=== PATIENT | female | born 1950 | race Two or more races ===

== ENCOUNTER → 2019-12-25 11:12 | Outpatient (BNVA) | payer MEDICARE, SELFPAY | PROVIDERS: PCP Internal Medicine; Visit Provider Hospitalist | DX: G47.33 Obstructive sleep apnea (adult) (pediatric) (principal); J44.9 Chronic obstructive pulmonary disease, unspecified; Z79.899 Other long term (current) drug therapy; Z86.19 Personal history of other infectious and parasitic diseases | CPT/HCPCS: 99202 ==

== ENCOUNTER 2019-12-26 13:55 | Outpatient (REF) | payer MEDICARE, SELFPAY ==
[2019-12-26 15:20] LABS: Vitamin B12 1260 pg/mL (200-900)
== END 2019-12-26 13:56 | disposition home or self-care (01) ==
LOC: HO.LAB 13:55
PROVIDERS: PCP Internal Medicine; Visit Provider Psychiatry & Neurology Neurology
DX: G31.84 Mild cognitive impairment of uncertain or unknown etiology (principal)
CPT/HCPCS: 82607

== ENCOUNTER 2020-01-08 13:32 | Outpatient (REF) | payer MEDICARE, SELFPAY ==
--- NOTE | 2020-01-08 13:41 | XR_ITS ---
EXAMINATION: XR CHEST CLINICAL INFORMATION: COPD, unspecified COMPARISON: Chest radiographs 03/02/2017 TECHNIQUE: 2 views of the chest were obtained. FINDINGS: The lungs are clear. There is no airspace consolidation or definite groundglass opacity. There is no hyperinflation. The costophrenic sulci are clear. The heart is within normal size. The hilar and mediastinal contours are normal. There are surgical clips again seen at bases next midline, possibly from prior thyroid surgery. No visible acute bony abnormality. XR/XR chest 2V IMPRESSION: No acute intrathoracic disease. No hyperinflation.
== END 2020-01-08 13:33 | disposition home or self-care (01) ==
LOC: HO.LAB 13:32
PROVIDERS: PCP Internal Medicine; Visit Provider Hospitalist
DX: J44.9 Chronic obstructive pulmonary disease, unspecified (principal)
CPT/HCPCS: 71046

== ENCOUNTER 2020-01-23 14:58 | Outpatient (REF) | payer MEDICARE, SELFPAY ==
--- NOTE | 2020-01-23 17:35 | PFT_ITS ---
INDICATION: COPD. To note the patient did have her long-acting inhaler use prior to this study. SPIROMETRY: The FEV1 to FVC 84% with an FEV1 of 1.73 L, which is 80% predicted, an FVC of 2.06 L which is 74% predicted. No significant response to bronchodilators noted. Maximum voluntary ventilation 104% predicted. LUNG VOLUMES: Total lung capacity 80% predicted with an expiratory reserve volume of 40% predicted. DIFFUSION CAPACITY: DLCO 59% predicted. COMPARISONS: None available. INTERPRETATION: No obstructive nor restrictive ventilatory defects identified. No significant response to bronchodilators noted and normal maximum voluntary ventilation, although these numbers can be obscured by the fact that she did use a long-acting bronchodilator. Lung volumes demonstrating a low normal total lung capacity. Therefore, occult interstitial lung conditions cannot be ruled out and decrease in the expiratory reserve volume may be due to an elevated BMI. In addition to that, the patient has a moderate diffusion impairment. Therefore, underlying interstitial lung conditions and/or pulmonary vascular conditions should be considered. The patient should also have a correction to hemoglobin and to alveolar volume. Clinical correlation warranted. MD JARON Pena/ANTONINO / [phone]
== END 2020-01-23 14:59 | disposition home or self-care (01) ==
LOC: HO.RESP 14:58
PROVIDERS: Visit Provider Hospitalist
DX: J44.9 Chronic obstructive pulmonary disease, unspecified (principal)
CPT/HCPCS: 94060; 94727; 94729

== ENCOUNTER → 2020-02-28 11:05 | Outpatient (BNVA) | payer MEDICARE, SELFPAY | PROVIDERS: PCP Internal Medicine; Visit Provider Hospitalist | DX: G47.33 Obstructive sleep apnea (adult) (pediatric) (principal); J45.909 Unspecified asthma, uncomplicated | CPT/HCPCS: Q3014 ==

== ENCOUNTER → 2020-06-30 11:20 | Outpatient (BNVA) | payer MEDICARE, SELFPAY | PROVIDERS: PCP Internal Medicine; Visit Provider Hospitalist | DX: J44.9 Chronic obstructive pulmonary disease, unspecified (principal); G47.33 Obstructive sleep apnea (adult) (pediatric); J45.40 Moderate persistent asthma, uncomplicated | CPT/HCPCS: 99212 ==

== ENCOUNTER → 2020-07-23 11:07 | Outpatient (REF) | payer MEDICARE, SELFPAY | LOC: HO.SL 11:07 | PROVIDERS: PCP Internal Medicine; Visit Provider Hospitalist | DX: G47.33 Obstructive sleep apnea (adult) (pediatric) (principal) | CPT/HCPCS: 95806 ==

== ENCOUNTER → 2020-09-07 14:34 | Outpatient (BNVA) | payer MEDICARE, SELFPAY | PROVIDERS: PCP Internal Medicine; Visit Provider Hospitalist | DX: J44.9 Chronic obstructive pulmonary disease, unspecified (principal); G47.33 Obstructive sleep apnea (adult) (pediatric) | CPT/HCPCS: 99212 ==

== ENCOUNTER → 2020-10-29 14:53 | Outpatient (BNVA) | payer MEDICARE, SELFPAY | PROVIDERS: PCP Internal Medicine; Visit Provider Hospitalist | DX: J44.9 Chronic obstructive pulmonary disease, unspecified (principal); G47.33 Obstructive sleep apnea (adult) (pediatric) | CPT/HCPCS: 99212 ==

== ENCOUNTER → 2021-01-26 13:35 | Outpatient (BNVA) | payer MEDICARE, SELFPAY | PROVIDERS: PCP Internal Medicine; Visit Provider Hospitalist | DX: J44.9 Chronic obstructive pulmonary disease, unspecified (principal); G47.33 Obstructive sleep apnea (adult) (pediatric) | CPT/HCPCS: 99212 ==

== ENCOUNTER → 2021-02-25 14:57 | Outpatient (BNVA) | payer MEDICARE, SELFPAY | PROVIDERS: PCP Nurse Practitioner Family; Visit Provider Hospitalist | DX: J44.9 Chronic obstructive pulmonary disease, unspecified (principal); G47.33 Obstructive sleep apnea (adult) (pediatric) | CPT/HCPCS: 99212 ==

== ENCOUNTER 2021-03-09 13:53 | Outpatient (REF) | payer MEDICARE, SELFPAY ==
--- NOTE | ~2021-03-09 | MM_ITS ---
EXAMINATION: BONE DENSITOMETRY CLINICAL INDICATION: Encounter for screening for osteoporosis. COMPARISON: None (current study represents initial baseline exam). TECHNIQUE: Using a [employer] DXA System (software version: 13.1) manufactured by [employer], dual-energy x-ray absorptiometry was performed of the lumbar spine and left hip. The images are of good technical quality. Summary results are attached. FINDINGS: AP SPINE L1-L4: BMD 1.206 g/cm2, Z-score 1.7, T-score 0.2, normal. LEFT FEMUR, NECK: BMD 0.867 g/cm2, Z-score 0.4, T-score -1.2, osteopenia. LEFT FEMUR, TOTAL: BMD 0.943 g/cm2, Z-score 0.9, T-score -0.5, normal. IDENTIFIED RISK FACTORS: Osteoporosis, height loss, secondary osteoporosis, history of fracture (adult), menopause. HISTORY OF FRACTURE: Lower leg. MEDICATIONS: Calcium supplements or multivitamin, vitamin D. MM/XR DEXA axial skeleton IMPRESSION: 1. DIAGNOSIS: Osteopenia based on the lowest T-score value of -1.2 in the femoral neck applying World Health Organization criteria. 2. 10-YEAR FRACTURE RISK PREDICTION, FRAX: Major osteoporotic fracture (clinical spine, forearm, hip or shoulder) 8.8%. Hip fracture 1.2%. 3. Treatment Recommendations: NOF guidelines recommend consideration for treatment in postmenopausal women and men age 50 and older presenting with the following: -A hip or vertebral (clinical or morphometric) fracture. -T-score less than or equal to -2.5 at the femoral neck or spine after appropriate evaluation to exclude secondary causes. -Low bone mass at the hip or spine and a 10-year fracture probability by FRAX of greater than or equal to 3% for hip fracture or greater than or equal to 20% for major osteoporotic fracture based on the [place] adapted WHO algorithm. 4. Other Recommendations: All treatment decisions require clinical judgment and consideration of individual patient factors, including patient preferences, comorbidities, previous drug use, risk factors not captured in the FRAX model (e.g. frailty, falls, vitamin D deficiency, increased bone turnover, interval significant decline in bone density) and possible under or overestimation of fracture risk by FRAX. Additional medical evaluation for secondary cause of low bone mineral density may be appropriate. FUTURE SCAN RECOMMENDATION: People with diagnosed cases of osteoporosis or at high risk for fracture should have regular bone mineral density tests. For patients eligible for Medicare, routine testing is allowed once every 2 years. The testing frequency can be increased to one year for patients who have rapidly progressing disease, those who are receiving or discontinuing medical therapy to restore bone mass, or have additional risk factors.
== END 2021-03-09 13:54 | disposition home or self-care (01) ==
LOC: HO.MAMMO 13:53
PROVIDERS: PCP Nurse Practitioner Family; Visit Provider Nurse Practitioner Family
DX: Z13.820 Encounter for screening for osteoporosis (principal); Z78.0 Asymptomatic menopausal state
CPT/HCPCS: 77080

== ENCOUNTER 2021-03-12 08:21 | Outpatient (REF) | payer MEDICARE, SELFPAY ==
[2021-03-12 08:46] LABS: MANUAL DIFF FLAG NO
[2021-03-12 08:55] LABS: Basophils Percent Auto 0.5 % (0-2); Eosinophils Absolute Auto 0.2 X10*3/uL (0.0-0.4); Eosinophils Percent Auto 2.3 % (0-4); Hematocrit 38.9 % (37.0-47.0); Hemoglobin 12.4 g/dl (12.0-16.0); Imm Gran Abs Auto 0.03 X10*3/uL (0.00-0.03); Imm Gran Pct Auto 0.4 % (0.0-0.4); Lymphocytes Absolute Auto 1.3 X10*3/uL (1.2-4.9); Lymphocytes Percent Auto 16.4 % (20-40); Mean Corpuscular HGB Conc 31.9 g/dl (31.0-35.0); Mean Corpuscular Hemoglobin 28.2 pg (27.0-33.0); Mean Corpuscular Volume 88.4 fL (80.0-98.0); Mean Platelet Volume 11.5 fL (9.4-12.3); Monocytes Absolute Auto 0.6 X10*3/uL (0.1-1.2); Monocytes Percent Auto 7.1 % (2-11); Neutrophils Percent Auto 73.3 % (45-73); Platelet Count 262 X10*3/uL (160-400); Red Cell Distribution Width 14.9 % (11.0-16.0); White Blood Count 8.1 X10*3/uL (4.8-10.8)
[2021-03-12 09:00] LABS: Prothrombin Time 11.4 SEC (9.9-13.0)
[2021-03-12 09:09] LABS: Alanine Aminotransferase 15 U/L (0-31); Alkaline Phosphatase 74 U/L (39-117); Anion Gap 10 (12-20); Aspartate Amino Transferase 20 U/L (5-31); Bilirubin Direct 0.2 mg/dL (0.0-0.5); Bilirubin Total 0.3 mg/dL (0.0-1.0); Blood Urea Nitrogen 16 mg/dL (9-16); Calcium 9.5 mg/dL (8.4-10.2); Carbon Dioxide 28 mmol/L (22-29); Chloride 109 mmol/L (96-108); Estimated Glomerular Filt Rate > 60; Glucose Fasting 95 mg/dL (60-99); Potassium 4.1 mmol/L (3.3-5.1); Sodium 143 mmol/L (135-145); Total Protein 7.2 g/dL (6.5-8.0)
[2021-03-12 09:16] LABS: Estimated Average Glucose 117 mg/dL; Hemoglobin A1c % 5.7 %
== END 2021-03-12 08:22 | disposition home or self-care (01) ==
LOC: HO.LAB 08:21
PROVIDERS: PCP Nurse Practitioner Family; Visit Provider Nurse Practitioner Family
DX: Z01.818 Encounter for other preprocedural examination (principal); I10 Essential (primary) hypertension; E11.9 Type 2 diabetes mellitus without complications; E78.00 Pure hypercholesterolemia, unspecified
CPT/HCPCS: 36415; 80053; 80076; 82248; 83036; 84443; 85025; 85610; 85730

== ENCOUNTER → 2021-03-16 15:12 | Outpatient (REF) | payer MEDICARE, SELFPAY ==
--- NOTE | 2021-03-16 15:21 | ECG_ITS ---
Test Reason : preproc exam Blood Pressure : / mmHG Vent. Rate : 058 BPM Atrial Rate : 058 BPM P-R Int : 114 ms QRS Dur : 102 ms QT Int : 432 ms P-R-T Axes : 053 -12 049 degrees QTc Int : 424 ms Sinus bradycardia Incomplete right bundle branch block Moderate voltage criteria for LVH, may be normal variant ( R in aVL , Celso product ) Nonspecific T wave abnormality Abnormal ECG When compared with ECG of 02-MAR-2017 09:02, Premature ventricular complexes are no longer Present Premature supraventricular complexes are no longer Present Referred By: Dioni Gamez Electronically Signed By:KENNEDY ZEPEDA MD
== END ==
LOC: HO.CARD 15:12
PROVIDERS: PCP Nurse Practitioner Family; Visit Provider Nurse Practitioner Family
DX: Z01.818 Encounter for other preprocedural examination (principal)
CPT/HCPCS: 93005

== ENCOUNTER 2021-03-24 12:17 | Outpatient (REF) | payer MEDICARE, SELFPAY ==
--- NOTE | ~2021-03-24 | MM_ITS ---
EXAMINATION: MM SCREENING DIGITAL BREAST TOMOSYNTHESIS, BILATERAL CLINICAL INFORMATION: Screening. Asymptomatic. The lifetime risk of breast cancer based on the Tyrer-Cuzick Model is 2.6%. COMPARISON: Mammography: February 26, 2020 and studies dating back to November 03, 2016 TECHNIQUE: Digital breast tomosynthesis is performed in both the craniocaudal and mediolateral oblique views along with computer-aided detection (CAD). Synthesized 2D images are generated from the tomosynthesis. FINDINGS: There are scattered areas of fibroglandular density (ACR BI-RADS breast composition Category b). There are no significant masses, abnormal calcifications, or other abnormalities. MM/MM tomosynthesis screening BI IMPRESSION: There are no significant changes from prior study. ASSESSMENT: BI-RADS 1: Negative RECOMMENDATION: Routine annual mammography screening. This patient's information was entered into a reminder system with a target due date for their next mammogram.
== END 2021-03-24 12:18 | disposition home or self-care (01) ==
LOC: HO.MAMMO 12:17
PROVIDERS: PCP Nurse Practitioner Family; Visit Provider Nurse Practitioner Family
DX: Z12.31 Encounter for screening mammogram for malignant neoplasm of breast (principal)
CPT/HCPCS: 77063; 77067

== ENCOUNTER → 2021-03-25 13:05 | Outpatient (BNVA) | payer MEDICARE, SELFPAY | PROVIDERS: PCP Nurse Practitioner Family; Visit Provider Hospitalist | DX: G47.33 Obstructive sleep apnea (adult) (pediatric) (principal); J44.9 Chronic obstructive pulmonary disease, unspecified | CPT/HCPCS: 99212 ==

== ENCOUNTER 2021-06-24 10:05 | Outpatient (REF) | payer OTHER, SELFPAY ==
[2021-06-24 10:20] LABS: MANUAL DIFF FLAG NO
[2021-06-24 10:53] LABS: Basophils Absolute Auto 0.1 X10*3/uL (0.0-0.2); Basophils Percent Auto 0.7 % (0-2); Eosinophils Absolute Auto 0.2 X10*3/uL (0.0-0.4); Eosinophils Percent Auto 2.4 % (0-4); Hematocrit 38.1 % (37.0-47.0); Imm Gran Abs Auto 0.08 X10*3/uL (0.00-0.03); Imm Gran Pct Auto 0.8 % (0.0-0.4); Lymphocytes Absolute Auto 1.8 X10*3/uL (1.2-4.9); Lymphocytes Percent Auto 17.6 % (20-40); Mean Corpuscular HGB Conc 31.5 g/dl (31.0-35.0); Mean Corpuscular Hemoglobin 27.4 pg (27.0-33.0); Mean Platelet Volume 11.7 fL (9.4-12.3); Monocytes Absolute Auto 0.8 X10*3/uL (0.1-1.2); Monocytes Percent Auto 7.6 % (2-11); Neutrophils Absolute Auto 7.2 x10*3/uL (2.0-8.3); Neutrophils Percent Auto 70.9 % (45-73); Platelet Count 296 X10*3/uL (160-400); Red Blood Count 4.38 X10*6/uL (4.20-5.50); Red Cell Distribution Width 14.9 % (11.0-16.0); White Blood Count 10.2 X10*3/uL (4.8-10.8)
[2021-06-24 11:21] LABS: Alanine Aminotransferase 15 U/L (0-31); Albumin Level 4.1 g/dL (3.5-5.0); Alkaline Phosphatase 104 U/L (39-117); Anion Gap 14 (12-20); Aspartate Amino Transferase 19 U/L (5-31); Bilirubin Total 0.4 mg/dL (0.0-1.0); Blood Urea Nitrogen 21 mg/dL (9-16); Calcium 9.7 mg/dL (8.4-10.2); Carbon Dioxide 24 mmol/L (22-29); Chloride 107 mmol/L (96-108); Cholesterol 182 mg/dL; Estimated Glomerular Filt Rate > 60; Glucose Fasting 98 mg/dL (60-99); HDL Cholesterol 45 mg/dL; LDL Cholesterol Calculated 116 mg/dl; Potassium 4.3 mmol/L (3.3-5.1); Sodium 141 mmol/L (135-145); Total Protein 7.3 g/dL (6.5-8.0); Triglycerides 109 mg/dL
[2021-06-24 11:46] LABS: Creatinine Urine 183.89 mg/dL; Microalbum/Creatinine Ratio Ur 29.3 ug/mg cr
[2021-06-24 11:46] LABS: TSH reflex Free T4 2.67 uIU/mL (0.32-4.0)
== END 2021-06-24 10:06 | disposition home or self-care (01) ==
LOC: HO.LAB 10:05
PROVIDERS: PCP Nurse Practitioner Family; Visit Provider Nurse Practitioner Family
DX: E11.9 Type 2 diabetes mellitus without complications (principal); E78.00 Pure hypercholesterolemia, unspecified; E78.5 Hyperlipidemia, unspecified; I10 Essential (primary) hypertension; E03.9 Hypothyroidism, unspecified
CPT/HCPCS: 36415; 80053; 80061; 82043; 84443; 85025

== ENCOUNTER → 2021-07-01 15:00 | Outpatient (BNVA) | payer OTHER, SELFPAY | PROVIDERS: PCP Nurse Practitioner Family; Visit Provider Hospitalist | DX: J44.9 Chronic obstructive pulmonary disease, unspecified (principal); G47.33 Obstructive sleep apnea (adult) (pediatric) | CPT/HCPCS: 99212 ==

== ENCOUNTER → 2021-07-28 13:52 | Outpatient (BNVA) | payer OTHER, SELFPAY | PROVIDERS: PCP Nurse Practitioner Family; Referring Provider Nurse Practitioner Family; Visit Provider Internal Medicine | DX: R07.2 Precordial pain (principal); E11.9 Type 2 diabetes mellitus without complications; I10 Essential (primary) hypertension; E78.5 Hyperlipidemia, unspecified; G47.33 Obstructive sleep apnea (adult) (pediatric) | CPT/HCPCS: 93005; 99202 ==

== ENCOUNTER → 2021-09-08 10:24 | Outpatient (REF) | payer OTHER, SELFPAY ==
--- NOTE | 2021-09-08 10:29 | CA_ITS ---
Transthoracic Echocardiogram Patient (Last, First, Middle): Joanna Osman, Gender: Female Date of : 1950 Age: 71 Procedure Date: 09/08/2021 Procedure Type: Transthoracic Echocardiogram Location: OP Height: 160.02 cm Weight: 72.58 kg BSA: 1.76 m2 Heart Rate: bpm BP: 140 / 85 mmHg Insulation Extruder Operator: TO/VH Referring MD: Vamsi Moody MD Dean Of Women: Thomas Shipman MD Symptoms: R07.2 - Precordial pain Study Quality: Fair ECG Rhythm: Sinus Conclusions: - 1. Normal LV systolic function with pseudonormal filling pattern 2. Moderately dilated left atrium 3. Mild aortic stenosis 4. Normal RV systolic pressure 5. No pericardial effusion Findings Left Ventricle Normal left ventricular size, thickness, and systolic function. The visually estimated ejection fraction is between 55-60%. Spectral Doppler is indicative of a pseudonormal filling pattern. E/E prime ratio is between 8 and 15 consistent with indeterminate filling pressures. Right Ventricle Normal right ventricular cavity size and systolic function. Atria The left atrium is moderately dilated. There is no evidence of interatrial shunt. The right atrium is mildly dilated. Aortic Valve There is mild calcification of the aortic valve. There is mild aortic valve stenosis. The peak aortic gradient is 13 mmHg.The mean gradient is 6 mmHg. The aortic valve area is 1.63 cm2. Mitral Valve There is mild anterior and posterior mitral leaflet thickening. There is trace mitral valve regurgitation. There is no mitral valve stenosis. Pulmonic Valve The pulmonic valve was not well visualized. Tricuspid Valve Normal tricuspid valve structure. There is mild tricuspid valve regurgitation. The right ventricular systolic pressure is normal. The right ventricular systolic pressure is 25 mmHg. Normal right atrial pressure. There is no evidence of pulmonary hypertension. Great Vessels All visible segments of the aorta are normal in size. The pulmonary artery was not well visualized. Moderate plaque is seen in the sino tubular ridge. Venous The inferior vena cava is normal in size and collapses greater than 50% with inspiration. Pericardium/Pleural There is no evidence of pericardial effusion. Prior Study Comparison No prior study available for comparison. Measurements 2D Linear Measurements IVSd: 0.94 0.6-0.9/0.6-1.0 cm LVIDd: 5.40 3.9-5.3/4.2-5.9 cm LVIDd Index: 3.07 2.4-3.2/2.2-3.1 cm/m2 LVIDs: 4.14 2.0-3.6 cm LVPWd: 0.95 0.7-1.1 cm LA Diam: 3.90 2.7-3.8/3.0-4.0 cm LAIDs Index: 2.22 1.5-2.3 cm/m2 LV Mass: 238.99 67-162/88-224 g LV Mass Index: 135.79 43-95/49-115 g/m2 LVOT Diam: 2.00 3.0+(-)1.3 cm 2D Systolic Function EF 4C: 53.90 >55% EF 2C: 50.50 >55% Mitral Valve MV Pk E: 0.86 MV PK A: 0.76 MV Decel Time: 228.00 E/A: 1.10 E'Lateral: 10.20 E'Medial: 4.90 E/E' Med: 17.50 E/E' Lat: 8.40 PHT: 67.00 MVA PHT: 3.28 Decel [place]: 3.77 Aortic Valve AoV Pk Tim: 1.79 AoV Mn Tim: 1.16 AoV VTI: 0.43 AoV Pk Grad: 13.00 Aov Mn Grad: 6.00 ROEL Cont.VTI: 1.63 LVOT LVOT Pk Tim: 0.81 LVOT Mn Tim: 0.57 LVOT VTI: 0.22 LVOT Pk Grad: 3.00 LVOT Mn Grad: 2.00 LVOT Diam: 2.00 LVOT Area: 3.14 Diastolic Function MV Pk E: 0.86 MV Pk A: 0.76 E/A: 1.10 E'Medial: 4.90 E/E' Med: 17.50 E' Laterial: 10.20 E/E' Lat: 8.40 Right Ventricle TAPSE (mm): 18.70 TVS' Tim: 7.94 Tricuspid Valve TR Pk Tim: 2.34 TR Pk Grad: 22.00 RA Press: 3.00 RVSP: 25.00 Great Vessels Aorta Sinus of Valsalva: 2.69 2.0-3.5 cm Ao Asc: 3.00 2.1-3.4 cm Updated in Other Vendor System with Status of Final Thomas Shipman MD electronically signed on 09/09/2021 11:23:18 AM with status of Final
== END ==
LOC: HO.CARD 10:24
PROVIDERS: PCP Nurse Practitioner Family; Visit Provider Internal Medicine
DX: R07.2 Precordial pain (principal)
CPT/HCPCS: 93306

== ENCOUNTER → 2021-09-16 09:56 | Outpatient (REF) | payer OTHER, SELFPAY ==
--- NOTE | ~2021-09-16 | NM_ITS ---
Lexiscan Myocardial perfusion study Indication: Chest pain, assess for coronary disease and ischemia Technique: The patient was brought in for a Lexiscan perfusion study on 09/16/2021 and was injected 0.4 mg of Lexiscan intravenously. Within a minute of this injection 25 mCi of sestamibi was given intravenously. Images were obtained using the SPECT gamma camera interlaced with the gating device. Images were obtained in supine position. Resting perfusion study was performed on 09/21/2021. Patient was administered 25 mCi of sestamibi intravenously at rest. Images were then obtained in supine position. Total DLP 168mGy-cm. Images were processed with the software and compared side to side in short axis, horizontal long axis and vertical long axis views. Findings: Raw acquisition reviewed. Arms by the patient's side. The stress perfusion study showed diminished tracer uptake along the lateral wall. There is improvement with CT attenuation correction and hence suggestive of soft tissue attenuation artifact. The gated study shows normal LV systolic function with calculated LVEF of 65%. LV cavity is normal in size. The gated study shows normal wall thickening and contraction of segments. Resting study shows diminished tracer uptake along the inferolateral wall and parts of inferior wall. There is improvement with CT attenuation correction suggestive of diaphragmatic attenuation artifact. Gating at rest reveals normal wall motion with ejection fraction at 53%. The findings are consistent with no definite reversible or fixed perfusion defects. NM/NM cardiolite stress test Impression: 1. Myocardial perfusion imaging study shows likely normal myocardial perfusion. No definitive evidence of any ischemia or infarction. 2. Gated LVEF is 65% during stress and 53% during rest. 3. Transient ischemic dilatation not present. EKG component of the test reported separately.
--- NOTE | 2021-09-16 09:58 | CA_ITS ---
Acquisition Time: 2021-09-16 10:16:59 Total Exercise Time: 00:04:45 Test Indications: Chest Pain Medications: SEE H Protocol: LESTER Max HR: 111 BPM 75% of Pred: 147 BPM Max BP: 160/070 mmHG Max Work Load: 6.6 METS Exercise stress test with exercise 4 min 45 sec of Lester protocol, achieving 72% MPHR, with report of leg fatigue and need to slow exercise, without anginal symptom, with isolated PACs, with normotensive response to exercise, with nondiagnostic EKG for ischemia due to suboptimal heart rate and baseline ST/ T wave abn. Treadmill placed in recovery and slowed to 1 MPH. Testing changed to a pharmacological stress test with Lexiscan injection, with sob and tightness in her chest post injection, with isolated PACs, with normotensive response to injection, with nondiagnostic EKG for ischemia. In recovery her symptoms resolved. Nuclear images pending. Test reviewed with Dr Moody Referred By: Vamsi Moody Overread By: CHAI VALENTIN
== END ==
LOC: HO.CARD 09:56
PROVIDERS: PCP Nurse Practitioner Family; Visit Provider Internal Medicine
DX: R07.2 Precordial pain (principal)
CPT/HCPCS: 78452; 93017; A9500; J0280; J2785

== ENCOUNTER → 2021-09-30 13:24 | Outpatient (BNVA) | payer OTHER, SELFPAY | PROVIDERS: PCP Nurse Practitioner Family; Visit Provider Hospitalist | DX: J44.9 Chronic obstructive pulmonary disease, unspecified (principal); G47.33 Obstructive sleep apnea (adult) (pediatric) | CPT/HCPCS: 99212 ==

== ENCOUNTER → 2021-10-12 13:30 | Outpatient (BNVA) | payer OTHER, SELFPAY | PROVIDERS: PCP Nurse Practitioner Family; Referring Provider Nurse Practitioner Family; Visit Provider Nurse Practitioner Family | DX: I35.0 Nonrheumatic aortic (valve) stenosis (principal); I10 Essential (primary) hypertension; R07.2 Precordial pain; M25.473 Effusion, unspecified ankle; E11.9 Type 2 diabetes mellitus without complications; E78.5 Hyperlipidemia, unspecified; Z87.891 Personal history of nicotine dependence; Z79.899 Other long term (current) drug therapy | CPT/HCPCS: 99212 ==

== ENCOUNTER → 2021-11-11 14:53 | Outpatient (BNVA) | payer OTHER, SELFPAY | PROVIDERS: PCP Nurse Practitioner Family; Visit Provider Hospitalist | DX: G47.33 Obstructive sleep apnea (adult) (pediatric) (principal); J44.9 Chronic obstructive pulmonary disease, unspecified | CPT/HCPCS: 99212 ==

== ENCOUNTER 2022-01-04 09:59 | Outpatient (REF) | payer OTHER, SELFPAY ==
[2022-01-04 10:47] LABS: Hematocrit 39.7 % (37.0-47.0); Hemoglobin 12.3 g/dl (12.0-16.0); Mean Corpuscular Hemoglobin 27.2 pg (27.0-33.0); Mean Corpuscular Volume 87.8 fL (80.0-98.0); Platelet Count 278 X10*3/uL (160-400); Red Blood Count 4.52 X10*6/uL (4.20-5.50); Red Cell Distribution Width 14.7 % (11.0-16.0); White Blood Count 9.4 X10*3/uL (4.8-10.8)
[2022-01-04 11:47] LABS: Folate 17.9 ng/mL (> or = 4.0); Vitamin B12 1411 pg/mL (200-900)
[2022-01-04 11:50] LABS: Alanine Aminotransferase 19 U/L (0-31); Albumin Level 4.2 g/dL (3.5-5.0); Alkaline Phosphatase 103 U/L (39-117); Anion Gap 15 (12-20); Aspartate Amino Transferase 23 U/L (5-31); Bilirubin Total 0.4 mg/dL (0.0-1.0); Blood Urea Nitrogen 16 mg/dL (9-16); Calcium 9.5 mg/dL (8.4-10.2); Carbon Dioxide 27 mmol/L (22-29); Chloride 106 mmol/L (96-108); Cholesterol 183 mg/dL; Estimated Glomerular Filt Rate > 60; Glucose Random 90 mg/dL (60-115); HDL Cholesterol 44 mg/dL; LDL Cholesterol Calculated 114 mg/dl; Potassium 4.6 mmol/L (3.3-5.1); Sodium 143 mmol/L (135-145); TSH reflex Free T4 14.53 uIU/mL (0.32-4.0); Total Protein 7.4 g/dL (6.5-8.0); Triglycerides 128 mg/dL; Vitamin D 25-OH Total 38.5 ng/mL (>30)
[2022-01-04 12:26] LABS: Free T4 (Free Thyroxine) 0.93 ng/dL (0.71-1.85)
== END 2022-01-04 10:00 | disposition home or self-care (01) ==
LOC: HO.LAB 09:59
PROVIDERS: PCP Nurse Practitioner Family; Visit Provider Nurse Practitioner Family
DX: E11.9 Type 2 diabetes mellitus without complications (principal); I10 Essential (primary) hypertension; E03.9 Hypothyroidism, unspecified; E78.5 Hyperlipidemia, unspecified
CPT/HCPCS: 36415; 80053; 80061; 82306; 82607; 82746; 84439; 84443; 85027

== ENCOUNTER 2022-02-17 15:46 | Outpatient (REF) | payer OTHER, SELFPAY ==
[2022-02-17 17:50] LABS: Appearance Urine Clear; Color Urine Yellow; Glucose Urine UA Negative (Negative); Leukocyte Esterase Urine Small (1+) (Negative); Nitrite Urine Negative (Negative); UMIC TRIGGER UACC YES; Urine Blood Negative (Negative); Urine Ketones Negative (Negative); Urine Protein Negative (Neg-Trace)
[2022-02-17 17:56] LABS: Bacteria Urine None Seen (None Seen); Hyaline Casts Urine 0-2 /LPF (0-2); RBC Urine 0-2 /HPF (0-2); Squamous Epithelial Cell Urine 0-2 /HPF (0-2); UACC Culture Trigger YES
[2022-02-17 18:37] LABS: TSH reflex Free T4 23.56 uIU/mL (0.32-4.0)
[2022-02-17 20:24] LABS: Free T4 (Free Thyroxine) 1.03 ng/dL (0.71-1.85)
== END 2022-02-17 15:47 | disposition home or self-care (01) ==
LOC: HO.LAB 15:46
PROVIDERS: Visit Provider Nurse Practitioner Family
DX: E03.9 Hypothyroidism, unspecified (principal)
CPT/HCPCS: 36415; 81001; 84439; 84443; 87086

== ENCOUNTER 2022-03-07 14:37 | Outpatient (REF) | payer OTHER, SELFPAY ==
--- NOTE | ~2022-03-07 | XR_ITS ---
EXAMINATION: XR CHEST CLINICAL INFORMATION: Bronchitis COMPARISON: 01/08/2020 TECHNIQUE: 2 views of the chest were obtained. FINDINGS: Lungs are clear. No focal consolidation or mass. Normal pulmonary vascularity. No pleural effusion or pneumothorax. Calcified aortic arch. Normal heart size. Regional skeleton intact. Multilevel degenerative changes of the thoracic spine. XR/XR chest 2V IMPRESSION: No acute pulmonary disease.
[2022-03-07 15:35] LABS: MANUAL DIFF FLAG NO
[2022-03-07 16:32] LABS: Basophils Absolute Auto 0.1 X10*3/uL (0.0-0.2); Basophils Percent Auto 0.8 % (0-2); Eosinophils Absolute Auto 0.2 X10*3/uL (0.0-0.4); Eosinophils Percent Auto 2.3 % (0-4); Hemoglobin 12.3 g/dl (12.0-16.0); Imm Gran Abs Auto 0.03 X10*3/uL (0.00-0.03); Imm Gran Pct Auto 0.3 % (0.0-0.4); Lymphocytes Absolute Auto 1.9 X10*3/uL (1.2-4.9); Lymphocytes Percent Auto 20.4 % (20-40); Mean Corpuscular HGB Conc 31.5 g/dl (31.0-35.0); Mean Corpuscular Hemoglobin 27.3 pg (27.0-33.0); Mean Corpuscular Volume 86.7 fL (80.0-98.0); Monocytes Absolute Auto 0.6 X10*3/uL (0.1-1.2); Monocytes Percent Auto 6.3 % (2-11); Neutrophils Absolute Auto 6.4 x10*3/uL (2.0-8.3); Neutrophils Percent Auto 69.9 % (45-73); Platelet Count 264 X10*3/uL (160-400); Red Cell Distribution Width 15.6 % (11.0-16.0); White Blood Count 9.2 X10*3/uL (4.8-10.8)
[2022-03-07 17:10] LABS: Erythrocyte Sedimentation Rate 45 MM/HR (0-20)
[2022-03-10 18:04] LABS: IgA 539 mg/dL (70-320); IgG 1345 mg/dL (600-1540); IgM 38 mg/dL (50-300)
== END 2022-03-07 14:38 | disposition home or self-care (01) ==
LOC: HO.LAB 14:37
PROVIDERS: PCP Nurse Practitioner Family; Visit Provider Hospitalist
DX: J40 Bronchitis, not specified as acute or chronic (principal); J45.909 Unspecified asthma, uncomplicated; J30.89 Other allergic rhinitis; G47.33 Obstructive sleep apnea (adult) (pediatric)
CPT/HCPCS: 36415; 71046; 82784; 82785; 85025; 85652; 86003; 99212

== ENCOUNTER → 2022-03-09 13:08 | Outpatient (BNVA) | payer OTHER, SELFPAY | PROVIDERS: PCP Nurse Practitioner Family; Visit Provider Nurse Practitioner Family | DX: N39.46 Mixed incontinence (principal) | CPT/HCPCS: 51798; 99202 ==

== ENCOUNTER 2022-03-30 11:31 | Outpatient (REF) | payer OTHER, SELFPAY ==
--- NOTE | ~2022-03-30 | MM_ITS ---
EXAMINATION: MM SCREENING DIGITAL BREAST TOMOSYNTHESIS, BILATERAL CLINICAL INFORMATION: Screening. Asymptomatic. The lifetime risk of breast cancer based on the Tyrer-Cuzick Model is 2.3%. COMPARISON: Mammography: March 24, 2021 and studies dating back to November 03, 2016 TECHNIQUE: Digital breast tomosynthesis is performed in both the craniocaudal and mediolateral oblique views along with computer-aided detection (CAD). Synthesized 2D images are generated from the tomosynthesis. FINDINGS: There are scattered areas of fibroglandular density (ACR BI-RADS breast composition Category b). There are no significant masses, abnormal calcifications, or other abnormalities. MM/MM tomosynthesis screening BI IMPRESSION: No significant changes from prior exam. ASSESSMENT: BI-RADS 1: Negative RECOMMENDATION: Routine annual mammography screening. This patient's information was entered into a reminder system with a target due date for their next mammogram.
[2022-03-30 14:14] LABS: Free T4 (Free Thyroxine) 1.19 ng/dL (0.71-1.85); Thyroid Stimulating Hormone 2.46 uIU/mL (0.32-4.0)
[2022-03-31 13:47] LABS: Thyroid Peroxidase Antibodies 1 IU/mL (<9)
== END 2022-03-30 11:32 | disposition home or self-care (01) ==
LOC: HO.MAMMO 11:31
PROVIDERS: Absent Provider Nurse Practitioner Family; PCP Nurse Practitioner Family; Visit Provider Nurse Practitioner Family
DX: E03.9 Hypothyroidism, unspecified (principal); Z12.31 Encounter for screening mammogram for malignant neoplasm of breast
CPT/HCPCS: 36415; 77063; 77067; 84439; 84443; 86376

== ENCOUNTER 2022-04-01 13:04 | Outpatient (REF) | payer OTHER, SELFPAY ==
--- NOTE | ~2022-04-01 | US_ITS ---
EXAMINATION: US RETROPERITONEAL LIMITED (RENAL ONLY) CLINICAL INFORMATION: Unspecified urinary incontinence. COMPARISON: None TECHNIQUE: Real-time imaging of the kidneys. FINDINGS: RIGHT KIDNEY: 10.0 x 3.8 x 4.7 cm (SAG x AP x TRV). The kidney is normal in size, contour, and echogenicity. Renal cortical thickness is normal. No calculi or focal parenchymal lesions. No hydronephrosis. LEFT KIDNEY: 10.1 x 5.4 x 5.5 cm (SAG x AP x TRV). The kidney is normal in size, contour, and echogenicity. Renal cortical thickness is normal. No calculi or focal parenchymal lesions. No hydronephrosis. US/US renal BI IMPRESSION: Unremarkable renal ultrasound.
== END 2022-04-01 13:05 | disposition home or self-care (01) ==
LOC: HO.US 13:04
PROVIDERS: Visit Provider Nurse Practitioner Family
DX: N39.46 Mixed incontinence (principal)
CPT/HCPCS: 76775

== ENCOUNTER 2022-04-04 12:25 | Outpatient (REF) | payer OTHER, SELFPAY ==
--- NOTE | ~2022-04-04 | US_ITS ---
EXAMINATION: US PELVIS LIMITED (BLADDER) CLINICAL INFORMATION: Urinary incontinence. COMPARISON: Ultrasound renal 04/01/2022. TECHNIQUE: Real-time imaging of the bladder. FINDINGS: BLADDER: Well distended and normal. Bilateral ureteral jets are demonstrated. Prevoid bladder volume is 227 mL. Postvoid bladder volume is 18 mL. US/US bladder IMPRESSION: Unremarkable examination.
== END 2022-04-04 12:26 | disposition home or self-care (01) ==
LOC: HO.US 12:25
PROVIDERS: Visit Provider Nurse Practitioner Family
DX: R39.12 Poor urinary stream (principal); R32 Unspecified urinary incontinence
CPT/HCPCS: 76857

== ENCOUNTER → 2022-04-06 08:31 | Outpatient (BNVA) | payer OTHER, SELFPAY | PROVIDERS: PCP Nurse Practitioner Family; Visit Provider Nurse Practitioner Family | DX: F09 Unspecified mental disorder due to known physiological condition (principal); R32 Unspecified urinary incontinence; G47.33 Obstructive sleep apnea (adult) (pediatric); Z86.16 Personal history of COVID-19 | CPT/HCPCS: 99202 ==

== ENCOUNTER 2022-04-29 09:58 | Outpatient (REF) | payer OTHER, SELFPAY ==
--- NOTE | ~2022-04-29 | US_ITS ---
EXAMINATION: US ABDOMEN LIMITED CLINICAL INFORMATION: Right upper quadrant pain. COMPARISON: Renal ultrasound 04/01/2022. TECHNIQUE: Real-time imaging of the right upper quadrant abdominal viscera. FINDINGS: PANCREAS: Normal. LIVER: The liver is normal in size. The liver contour is normal. There is mildly increased liver parenchymal echogenicity. No focal hepatic lesion. There is no intrahepatic biliary duct dilatation seen. GALLBLADDER: Normal. The gallbladder is physiologically distended without evidence of stones, sludge, polyps, wall thickening or pericholecystic fluid. COMMON BILE DUCT: Normal in caliber measuring 0.5 cm in diameter. RIGHT KIDNEY: Normal. No hydronephrosis. No renal calculi or focal parenchymal lesions. The kidney measures 10.1 cm in maximum dimension. FREE FLUID: None. US/US abdomen limited IMPRESSION: 1. There is mild generalized increase in hepatic echotexture, consistent with fatty infiltration or hepatocellular disease. Please correlate clinically. No focal hepatic mass or intrahepatic biliary dilatation is seen. 2. Otherwise, unremarkable examination.
== END 2022-04-29 09:59 | disposition home or self-care (01) ==
LOC: HO.US 09:58
PROVIDERS: PCP Nurse Practitioner Family; Visit Provider Nurse Practitioner Family
DX: R10.11 Right upper quadrant pain (principal); N39.46 Mixed incontinence
CPT/HCPCS: 76705; 99212

== ENCOUNTER → 2022-06-13 14:42 | Outpatient (BNVA) | payer OTHER, SELFPAY | PROVIDERS: PCP Nurse Practitioner Family; Visit Provider Hospitalist | DX: J44.9 Chronic obstructive pulmonary disease, unspecified (principal); J30.9 Allergic rhinitis, unspecified; G47.33 Obstructive sleep apnea (adult) (pediatric) | CPT/HCPCS: 99212 ==

== ENCOUNTER 2022-07-05 12:06 | Outpatient (REF) | payer OTHER, SELFPAY ==
[2022-07-05 12:55] LABS: Estimated Average Glucose 123 mg/dL; Hemoglobin A1c % 5.9 %
[2022-07-05 12:56] LABS: Alanine Aminotransferase 15 U/L (0-31); Albumin Level 4.1 g/dL (3.5-5.0); Alkaline Phosphatase 98 U/L (39-117); Anion Gap 10 (12-20); Aspartate Amino Transferase 18 U/L (5-31); Bilirubin Total 0.6 mg/dL (0.0-1.0); Blood Urea Nitrogen 18 mg/dL (9-16); Calcium 9.3 mg/dL (8.4-10.2); Carbon Dioxide 28 mmol/L (22-29); Chloride 108 mmol/L (96-108); Cholesterol 191 mg/dL; Estimated Glomerular Filt Rate > 60; Glucose Random 96 mg/dL (60-115); HDL Cholesterol 48 mg/dL; LDL Cholesterol Calculated 124 mg/dl; Potassium 4.2 mmol/L (3.3-5.1); Sodium 142 mmol/L (135-145); Triglycerides 99 mg/dL
[2022-07-05 13:52] LABS: Vitamin D 25-OH Total 38.4 ng/mL (>30)
[2022-07-05 17:14] LABS: Creatinine Urine 137.62 mg/dL; Microalbum/Creatinine Ratio Ur 29.7 ug/mg cr
[2022-07-06 04:51] LABS: Syphilis Screen Nonreactive (Nonreactive)
[2022-07-06 07:28] LABS: HIV AB/AG Nonreactive (Nonreactive); HIV Num 1 0.07 S/CO (0.00-0.99)
[2022-07-07 19:08] LABS: Homocysteine 8.1 umol/L (<10.4)
[2022-07-11 00:39] LABS: Methylmalonic Acid 103 nmol/L (87-318)
[2022-07-17 11:19] LABS: Anti Nuclear Antibody Screen NEGATIVE (NEGATIVE)
== END 2022-07-05 12:07 | disposition home or self-care (01) ==
LOC: HO.LAB 12:06
PROVIDERS: Absent Provider Nurse Practitioner Family; PCP Nurse Practitioner Family; Visit Provider Nurse Practitioner Family
DX: Z11.4 Encounter for screening for human immunodeficiency virus [HIV] (principal); E11.9 Type 2 diabetes mellitus without complications; I10 Essential (primary) hypertension; E78.5 Hyperlipidemia, unspecified; F09 Unspecified mental disorder due to known physiological condition; R53.83 Other fatigue; R68.89 Other general symptoms and signs; M85.80 Other specified disorders of bone density and structure, unspecified site
CPT/HCPCS: 36415; 80053; 80061; 82043; 82306; 83036; 83090; 83921; 86038; 86780; 87389

== ENCOUNTER → 2022-07-06 12:52 | Outpatient (BNVA) | payer OTHER, SELFPAY | PROVIDERS: PCP Nurse Practitioner Family; Visit Provider Nurse Practitioner Family | DX: G47.33 Obstructive sleep apnea (adult) (pediatric) (principal); F09 Unspecified mental disorder due to known physiological condition; R68.89 Other general symptoms and signs | CPT/HCPCS: 99212 ==

== ENCOUNTER 2022-07-28 11:00 | Outpatient (RCR) | payer OTHER, SELFPAY ==
--- NOTE | 2022-05-25 10:49 | MHC.PT.EP ---
[facility] [place] Office [place] Office [place] Office [address] Aide Grajeda [address] [phone] F: [phone] F: [phone] F: [phone] F: [phone] Physical Therapy Plan of Care Date of Evaluation: Date of Surgery: Diagnosis: urinary, mixed incontinence Assessment: 72 y/o female referred to pelvic floor PT with mixed UI. She presents with MANN during coughing, sneesing, laughing, walking and UUI associated with keys in door, running water, pulling pants down to use the toilet, riding in the elevator to her apartment. She uses maxi pads for protection and changes them 2x/day. SHe also reports hx of constipation with hard stools and inconsistent bowel schedule. Pt consented to pelvic floor assessment and we will assess this next visit. She presents with decreased hip AROM and decreased hip strength as well as poor abdominal activation and coordination. REcommend PT 1x/week for 8 weeks to address impairments, implement HEP, and optimize functional mobility. Educated pt on pelvic floor anatomy and function, constipation massage, urgency deferment techniques. Frequency and Duration: The patient will be seen 1x/week for 8 weeks Short Term Goals: 1. Pt to be able to correctly activate her PFM to allow improved support to bowel and bladder. 2. Pt to be able to demonstrate a pre contraction before a cough 3. pt to be able to log roll correctly to reduce pressure on the pelvic floor. Poultry Grader Goals: 1. Pt to be able to show improved PFM contraction during functional movements such as a bridge or squat to help prevent or limit POP. 2. Pt to reduce # of episodes of MANN during the day by 50% to help improve quality of life and reduce pad usage. Treatment Plan: Modalities to reduce pain, spasms and effusion. Manual therapy to restore motion and function. Therapeutic exercise to improve strength and flexibility. Neuromuscular re-education for posture and balance. Therapeutic activities to return to functional activities of daily living. Electronically signed by: Please sign and return to therapist. Thank you for your referral.
--- NOTE | 2022-07-28 13:22 | MHC.PT.DC ---
[facility] [place] Office [place] Office [place] Office [address] Aide Grajeda [address] [phone] F: [phone] F: [phone] F: [phone] F: [phone] Physical Therapy Discharge Report Diagnosis: urinary, mixed incontinence Date of Surgery: Date of Evaluation: 05/25/22 Date of Discharge: 07/28/22 Treatments to Date: 7 Cancellations to Date: 0 No Shows to Date: 0 Discharge Status: Discharge Summary: She is appropriate for d/c having met all goals. She reports urgency has improved and no longer has leakage with elevator rides. She also reports minimal-no leakage with coughing and sneezing. She is I with HEP and no further questions at this time. Electronically signed by: Carol Davila PT Please sign and return to therapist. Thank you for your referral.
== END 2022-07-28 13:23 | disposition home or self-care (01) ==
LOC: HO.PT 11:00
PROVIDERS: PCP Nurse Practitioner Family; Visit Provider Nurse Practitioner Family
DX: N39.46 Mixed incontinence (principal)
CPT/HCPCS: 97110; 97112; 97140; 97162

== ENCOUNTER → 2022-08-02 13:46 | Outpatient (BNVA) | payer OTHER, SELFPAY | PROVIDERS: PCP Nurse Practitioner Family; Visit Provider Nurse Practitioner Family | DX: R32 Unspecified urinary incontinence (principal) | CPT/HCPCS: 99212 ==

== ENCOUNTER 2022-09-23 14:05 | Outpatient (AMB) | payer OTHER, SELFPAY ==
--- NOTE | 2022-09-23 14:08 | MHC.OFFVIS ---
Intake Vital Signs 09/23/22 14:09 Height 5 ft 3 in Weight 153 lb 14.122 oz BMI 27.3 BP 128/60 Blood Pressure Location Rt brachial Position Sitting Pulse 57 Pulse Source Pulse Oximeter Pulse Oximetry (%) 97 Oxygen Delivery Method Room Air Intake Visit Reasons: Sleep apnea Care Program Resident Required: No Allergies No Known Allergies [No Known Allergies*] Allergy (Verified 09/23/22 14:11) HPI HPI Comments History of Present Illness Details The patient is a 72-year-old woman with a known history of asthma in addition to obstructive sleep apnea. Apparently she was diagnosed with sleep apnea about a year ago. She has underlying cardiovascular risk factor with high blood pressure and diabetes. She did use the CPAP is very hard for her to get used to it. She would have episodes which she will wake up short of breath. Therefore after multiple times including decreasing the pressure is she return the CPAP. She continues to have daytime drowsiness and also has an elevated [employer] score of 10/24. She also has a history of asthma. She had been on Advair before in this was switched over to Wixela and has not had any significant improvement in breathing. At this time will try to optimize respiratory therapy. Will likely made her respiratory status worse with such was diagnosed with COVID-19 infection and subsequently COVID-19 pneumonia about a month or 2 ago. She did require multiple courses of antibiotics initially prednisone. She still has shortness of breath with activity. Mild in severity. Also has a nonproductive cough that is improved. 07/01/2021 the patient is here for a pulmonary follow-up visit. The patient continues to try to use CPAP as much as she can. She is using about 80% of the time. However, she sometimes takes it up before completing the 4 hours required. The CPAP therapy has been affecting beneficial. We have switched her to a CPAP of 8 and her AHI had been well during the last visit but did increase to 8 cm. Ago significantly elevated if she tries using nasal mask. She understands she cannot use a nasal mask for that reason. However with the F 30 I when she turns to decide it leaks out a lot of air and then she wakes up and she takes it off. Therefore will switch over to a medium F 20 mask which appears to be dirty on her face and she will tolerated better. In meantime I will try to increase her CPAP pressure to 9 cm. I am hopeful that she can tolerate that. If she cannot she will call the office and I will decrease the pressure accordingly. In regards of her asthma appears to be stable. She has not required her short-acting beta agonist. She does continue to use the Wixela although she does not use it regularly. We talked about at lease using it once a day to trying to maintain stability. She should also continue the Singulair every day. Will follow-up in 3 months to see her progress. 09/30/2021 the patient is here for a pulmonary follow-up visit. Overall the patient is doing better. She is tolerating her CPAP. The CPAP therapy continues to be affecting beneficial. She does try to use it more than 4 hours a night. We were able to download her machine. Her AHI is slightly elevated at 5.6 events per hour. This is on a CPAP 9. I did encourage her to allow me to increase it to 10 cm. She is going to try it and hopefully get used to the higher pressure. In the meantime she is struggling with her mask. She feels that she is getting too much air leakage. She also gets a very dry mouth. She currently has a fullface mask. She has also tried both the F 30 in the F20 mask. At this point when I did recommend is that she can follow-up with her [employer] company for mask refitting. I did call the [employer] and they will arrange it once he get a prescription for it. In regards of her asthma she seems to be stable on her Wixela. She uses it once a day. She has been using her rescue inhaler little bit more lately because the heating humidity. but otherwise she is doing well. 11/11/2021 the patient is here for a pulmonary follow-up visit. She has not had a chance to go to the [employer] for the mask fitting. I did provide her with information about open hours at the have a level controlled without appointments. She also has a phone number that she can call. Her major complaint right now is that the pressures are too high. We had increased the pressures from 8 cm to 9 cm and ultimately to 10 cm. She had been tolerating it and her AHI have been better. Right now she is having hard time which she is having significant shortness of breath and she cannot tolerate the high pressures in the further. Therefore will go ahead and decrease in again to 8 cm to make sure that at least she can not tolerated, even if it is not the optimum pressure. Patient does continue to use her inhalers. Although the Wixela is not working for her. She tried it a does not seem to provide her with any relief. She responded well to the Trelegy. She has been using her rescue inhaler more often. Therefore I will go ahead and send her Trelegy at this time. 03/07/2022 the patient is here for pulmonary follow-up visit. She is not recovering after having flu-like symptoms and worsening respiratory symptoms. He has been having increasing chest tightness and wheezing. Moderate severity. She was supposed to be on Trelegy but she has been getting the wrong inhaler to the pharmacy. A resend the prescription to the pharmacy. Will make sure that she is on the right medication. In the meantime I will request that she undergo a chest x-ray and also blood work to assess for any potential triggers that may be exacerbating her obstructive airway disease. Because of her breathing she had a hard time tolerating her CPAP. But now that she is feeling better her cough is a little better after having been sick see starting to go back to using it regularly. 06/13/2022 the patient is here for a pulmonary follow-up visit. The patient now is recovering after having COVID. Her major issue right now is her memory. She seems to not be able to remember things as well after COVID. She recently had an MRI and is currently being worked up for that. In the meantime she is still struggling with her CPAP. She does not use it regularly. I did download the data and she has used it only a few times. When she does use it however seems like the CPAP pressures are too low. She does want to go higher this times is is hard for her to tolerate however. Therefore she is going to continue with CPAP of 8 cm and will reassess her usage and also heart response to therapy. I did request she can bring it in to the next visit so we can also adjusted for her. In addition to this, the patient having some a per the sciatic chest discomfort. Primarily her side. Waxing waning. Pleuritic in nature. At this point she does not have it. I did recommend that if it happens again she can always come in for chest x-ray. She has also been noticing some wheezing. Although she has not been taking the Trelegy regularly. She needs to take a Trelegy regularly and also uses Singulair. Her wheezing may just be a transition into the spring. We can also consider on the chin on antihistamine therapy. However, like to try to avoid polypharmacy at this time. If the patient has worsening she is to call the office for further recommendations. 09/23/2022 patient is here for pulmonary follow-up visit. The patient has recovered well after having COVID. She is back to using her respiratory therapy as prescribed. The patient also has been using her CPAP. The CPAP therapy continues to be effective in beneficial. She does use it for more than 4 hours a night. Now however, now she is having some issues with back discomfort send reticular and neuropathic discomfort. This is affecting her sleep as it is hurting her she goes to bed. He is keeping her up and is affecting her sleep quality. We did talk about potentially treating her with gabapentin. The patient states that she had been on this before and she tolerated it well. Therefore will go ahead and start her on 300 mg at nighttime to help with her sleep and also with discomfort that is affecting her sleep. Hopefully with this she will continue using the CPAP more effectively. She continues use her respiratory medicines. She does not required her short-acting beta agonists at this time. [facility] Medical History Asthma Asthma-COPD overlap syndrome Bronchitis Chronic allergic rhinitis COVID-19 Encounter to establish care (~02/22/21) History of COVID-19 ALISA (obstructive sleep apnea) Pleuritic chest pain Pre-op evaluation Surgical History History of back surgery History of surgery on lower extremity History of thyroid surgery Family History Father Diabetes HTN (hypertension) Heart disease Mother Diabetes HTN (hypertension) Other Asthma Social History Household Members: None Housing: Apartment Alcohol intake: never Patient Tobacco Use Status: Former Tobacco user Tobacco use type: Cigarette Years Smoked: 8 years old e-Cigarette/Vaping Use: Never Used Second Hand Smoke Exposure: No service: No Current occupational status: disabled Current occupational exposures/hazards: No Cognitive needs: Yes (cane) Hearing needs: No Vision needs: Yes Review of Systems Const Denies body aches, Denies chills, Reports difficulty sleeping, Denies fever(s) and Denies headache(s) Eyes Denies change in vision ENT Denies dizziness, Denies otalgia, Denies headache(s), Denies nasal discharge, Denies sinus pain and Denies sore throat Card Denies chest pain, Denies edema, Denies lightheadedness and Denies dyspnea Resp Reports cough, Denies hemoptysis and Denies dyspnea Denies hematuria, Denies dysuria, Denies flank pain and Reports urinary incontinence Musc Reports back pain Skin/Breast Reports as per HPI and Denies rash Neuro Reports burning sensations, Denies dizziness, Denies headache(s), Reports memory loss, Reports radicular pain and Reports paresthesias Psych Reports memory loss Physical Exam Vital Signs: Last Vital Signs Pulse 57 09/23/22 14:09 BP 128/60 09/23/22 14:09 Pulse Ox 97 09/23/22 14:09 Oxygen Delivery Method Room Air 09/23/22 14:09 BMI result Body Mass Index 27.3 Const General: alert Orientation/consciousness: patient oriented x3 Neck Neck: Yes normal visual inspection, Yes full ROM and Yes no lymphadenopathy Chest Chest palpation & inspection: normal inspection of the chest Resp Effort & Inspection: normal respiratory effort Auscultation: no rales, no rhonchi, no wheezes and diminished lung sounds Cardio Jugular venous distension: no JVD Rate: regular rate Rhythm: regular rhythm and other (ectopy) Heart sounds: S1 normal heart sound present and S2 normal heart sound present Peripheral pulses: Peripheral pulses 2+ throughout GI Inspection: Yes normal to inspection Palpation (GI): Soft to palpation and nontender Auscultation: normal bowel sounds Skin General skin exam: rashes and/or lesions noted Neuro General: patient oriented x3 Extrem Other: Trace edema around right lateral malleolus General: Yes normal to inspection Psych Appearance: grossly normal Mental Status: mental status grossly normal Speech and movement: Normal speech and movement present Assessment & Plan Assessment & Plan (1) Asthma-COPD overlap syndrome: Code(s): J44.9 - Chronic obstructive pulmonary disease, unspecified (2) ALISA (obstructive sleep apnea): Code(s): G47.33 - Obstructive sleep apnea (adult) (pediatric) (3) Chronic allergic rhinitis: Code(s): J30.9 - Allergic rhinitis, unspecified Plan continue CPAP from 8cm. likely needs higher pressure, but it is difficult for her to tolerate. continue Trelegy cont singular JEANNINE as needed start Gabapentin for sleep and also should help with her neuropathic discomfort Follow-up in 6 months Medications: New gabapentin (Neurontin) 300 mg PO BEDTIME 30 days 30 caps 6RF Coding Level of Care Code Est Pt Level 4 (89732) Diagnoses Asthma-COPD overlap syndrome J44.9 ALISA (obstructive sleep apnea) G47.33 Chronic allergic rhinitis J30.9 Time Spent (min) 18
[2022-09-23 14:09] VITALS: BP 128/60; PULSE 57; O2SAT 97; BMI 27.3
== END 2022-09-23 14:26 | disposition home or self-care (01) ==
PROVIDERS: PCP Nurse Practitioner Family; Visit Provider Hospitalist
DX: J44.9 Chronic obstructive pulmonary disease, unspecified (principal); G47.33 Obstructive sleep apnea (adult) (pediatric); J30.9 Allergic rhinitis, unspecified
CPT/HCPCS: 99214

== ENCOUNTER → 2022-09-23 14:05 | Outpatient (BNVA) | payer OTHER, SELFPAY | PROVIDERS: Visit Provider Hospitalist | DX: J44.9 Chronic obstructive pulmonary disease, unspecified (principal); J30.9 Allergic rhinitis, unspecified; G47.33 Obstructive sleep apnea (adult) (pediatric) | CPT/HCPCS: 99212 ==

== ENCOUNTER 2022-10-05 10:00 | Outpatient (REF) | payer OTHER, SELFPAY ==
[2022-10-05 10:30] LABS: MANUAL DIFF FLAG NO
[2022-10-05 10:38] LABS: Basophils Absolute Auto 0.1 X10*3/uL (0.0-0.2); Basophils Percent Auto 0.7 % (0-2); Eosinophils Absolute Auto 0.2 X10*3/uL (0.0-0.4); Eosinophils Percent Auto 2.9 % (0-4); Hematocrit 40.4 % (37.0-47.0); Hemoglobin 12.9 g/dl (12.0-16.0); Imm Gran Abs Auto 0.03 X10*3/uL (0.00-0.03); Imm Gran Pct Auto 0.4 % (0.0-0.4); Lymphocytes Absolute Auto 1.4 X10*3/uL (1.2-4.9); Lymphocytes Percent Auto 17.3 % (20-40); Mean Corpuscular HGB Conc 31.9 g/dl (31.0-35.0); Mean Corpuscular Hemoglobin 28.1 pg (27.0-33.0); Mean Platelet Volume 11.6 fL (9.4-12.3); Monocytes Absolute Auto 0.5 X10*3/uL (0.1-1.2); Monocytes Percent Auto 5.7 % (2-11); Neutrophils Absolute Auto 6.1 x10*3/uL (2.0-8.3); Platelet Count 256 X10*3/uL (160-400); Red Blood Count 4.59 X10*6/uL (4.20-5.50); Red Cell Distribution Width 14.6 % (11.0-16.0); White Blood Count 8.3 X10*3/uL (4.8-10.8)
[2022-10-05 11:22] LABS: Alanine Aminotransferase 15 U/L (0-31); Albumin Level 4.1 g/dL (3.5-5.0); Alkaline Phosphatase 87 U/L (39-117); Anion Gap 12 (12-20); Aspartate Amino Transferase 19 U/L (5-31); Bilirubin Total 0.4 mg/dL (0.0-1.0); Blood Urea Nitrogen 17 mg/dL (9-16); Calcium 9.5 mg/dL (8.4-10.2); Carbon Dioxide 28 mmol/L (22-29); Chloride 107 mmol/L (96-108); Cholesterol 208 mg/dL; Estimated Glomerular Filt Rate > 60; Glucose Fasting 101 mg/dL (60-99); HDL Cholesterol 47 mg/dL; LDL Cholesterol Calculated 133 mg/dl; Magnesium 2.2 mg/dL (1.6-2.6); Potassium 4.1 mmol/L (3.3-5.1); Sodium 143 mmol/L (135-145); Total Protein 7.8 g/dL (6.5-8.0); Triglycerides 141 mg/dL
[2022-10-05 11:38] LABS: TSH reflex Free T4 5.09 uIU/mL (0.32-4.0); Vitamin D 25-OH Total 38.8 ng/mL (>30)
[2022-10-05 11:44] LABS: Folate 14.2 ng/mL (> or = 4.0); Vitamin B12 1733 pg/mL (200-900)
[2022-10-05 12:44] LABS: Free T4 (Free Thyroxine) 1.09 ng/dL (0.71-1.85)
== END 2022-10-05 10:01 | disposition home or self-care (01) ==
LOC: HO.LAB 10:00
PROVIDERS: PCP Nurse Practitioner Family; Visit Provider Nurse Practitioner Family
DX: E11.9 Type 2 diabetes mellitus without complications (principal); E78.5 Hyperlipidemia, unspecified
CPT/HCPCS: 36415; 80053; 80061; 82306; 82607; 82746; 83735; 84439; 84443; 85025

== ENCOUNTER 2022-10-07 13:52 | Outpatient (AMB) | payer OTHER, SELFPAY ==
--- NOTE | 2022-10-07 13:55 | MHC.PC.OV ---
Vital Signs 10/07/22 14:05 10/07/22 14:43 Height 5 ft 3 in Weight 153 lb BMI 27.1 BP 178/96 H 170/68 H Blood Pressure Location Lt brachial Lt brachial Position Sitting Sitting Pulse 71 Pulse Source Pulse Oximeter Temp Source Skin Pulse Oximetry (%) 96 Oxygen Delivery Method Room Air Intake Visit Reasons: F/U DM, HLD, HTN, thyroid Post Production Assistant Required: Yes Post Production Assistant Language: [place] Allergies No Known Allergies [No Known Allergies*] Allergy (Verified 10/07/22 14:26) Medication List - Last Reconciled 10/10/22 by EVE Herrera albuterol sulfate 90 mcg/actuation 2 puffs inhalation Q6H PRN 30 days albuterol sulfate 2.5 mg (3 mL) inhalation Q6H PRN 30 days amlodipine 5 mg PO DAILY ascorbic acid (vitamin C) mg PO aspirin 81 mg PO DAILY blood-glucose meter (FreeStyle Lite Meter kit) test daily carvedilol 6.25 mg PO BID cholecalciferol (vitamin D3) 25 mcg PO DAILY fhyxbtcdhlc-bvgzaoyyj-afstiuuq 200-62.5-25 mcg (Trelegy Ellipta) 1 inh inhalation DAILY 30 days gabapentin 100 mg PO BEDTIME 30 days ibuprofen 600 mg PO PRN [incontinence wipes As directed] levothyroxine 125 mcg PO DAILY losartan 50 mg PO DAILY metformin 500 mg PO DAILY montelukast 10 mg PO BEDTIME multivitamin (Daily Multi-Vitamin tablet) 1 tab PO DAILY nebulizers As directed pantoprazole 20 mg PO DAILY Saccharomyces boulardii (Daily Probiotic (S. boulardii)) 5,000 mmu cells PO DAILY sertraline 100 mg PO DAILY simvastatin 20 mg PO BEDTIME [tumeric PO DAILY] Tobacco use date assessed: 10/07/22 Fall risk assessment: No Falls in past year Last assessed Fall Risk: 10/07/22 Dental Screening Dental Screen Date: 10/07/22 Did you have a dental visit in the last 12 months?: No Did you have a dental problem in the last 6 months where you did not have access to dental care?: No HPI F/U DM, HLD, HTN, thyroid HPI Details Patient is a 72-year-old female who presents today for routine follow-up.? Medical history significant for precordial chest pain-followed by Cardiology, hyperlipidemia, hypothyroidism, diabetes type 2, GERD, mixed incontinence urge and stress-followed by [facility], cognitive dysfunction - followed by [facility], hypertension, ALISA - on CPAP, and asthma-COPD overlap syndrome - followed by [facility].?Patient is compliant with medications.? Recent blood work results reviewed with the patient.? Patient reports elevated blood pressures at home yesterday. Blood pressure elevated in the office today. Patient denies shortness of breath or chest pain. Reports compliance with blood pressure medications. Reports ongoing bilateral hands pain left greater than right, interested in OT referral for this. In addition, patient reports ongoing intermittent right leg distal area anterior aspect pain for the past 1 year, she reports she did have fracture there with metal placement. Reports seeing Podiatry and they cannot help her with right leg pain.? Patient is a [place]-speaking and Kab[place] medicine tech was helping with interpretation. ? ? [facility] Medical History (Updated 10/07/22 @ 14:48 by EVE Herrera) Asthma Asthma-COPD overlap syndrome Bronchitis Chronic allergic rhinitis COVID-19 Encounter to establish care (~02/22/21) History of COVID-19 ALISA (obstructive sleep apnea) Pleuritic chest pain Pre-op evaluation Surgical History (Updated 10/07/22 @ 14:48 by EVE Herrera) History of back surgery History of surgery on lower extremity History of thyroid surgery Family History Father Diabetes HTN (hypertension) Heart disease Mother Diabetes HTN (hypertension) Other Asthma Social History Household Members: None Housing: Apartment Alcohol intake: never Patient Tobacco Use Status: Former Tobacco user Tobacco use type: Cigarette Years Smoked: 8 years old e-Cigarette/Vaping Use: Never Used Second Hand Smoke Exposure: No service: No Current occupational status: disabled Current occupational exposures/hazards: No Cognitive needs: Yes (cane) Hearing needs: No Vision needs: Yes Questionnaire Thrive Questionnaire Date Thrive assessed: 04/08/22 ROSS-7 AMB Questionnaire ROSS-7 Date ROSS - 7 assessed: 04/08/22 Source: Developed by Drs. Moncho Pacheco, Ade Soto, Bill Goldman and colleagues, with an educational lisa from [employer]. Review of Systems Const Denies body aches, Denies chills, Denies fever(s) and Denies headache(s) Eyes Denies change in vision ENT Denies dizziness, Denies otalgia, Denies headache(s), Denies nasal discharge, Denies sinus pain and Denies sore throat Card Denies chest pain, Denies edema, Denies lightheadedness and Denies dyspnea Resp Denies cough, Denies hemoptysis and Denies dyspnea GI Denies abdominal pain Denies hematuria, Denies dysuria, Denies flank pain and Reports urinary incontinence Musc Denies myalgias and Reports arthralgias Skin/Breast Denies rash Neuro Denies dizziness and Denies headache(s) Physical exam (Primary Care) Vital Signs: Last Vital Signs Pulse 71 10/07/22 14:05 BP 170/68 H 10/07/22 14:43 Pulse Ox 96 10/07/22 14:05 Oxygen Delivery Method Room Air 10/07/22 14:05 BMI result Body Mass Index 27.1 Tobacco/Smoking Status: Tobacco use Status Tobacco use date assessed 10/07/22 10/07/22 14:12 Patient Tobacco Use Status Former Tobacco user 10/07/22 13:55 Tobacco use type Cigarette 10/07/22 13:55 e-Cigarette/Vaping Use Never Used 10/07/22 13:55 Thrive Assessment: Date of Thrive Assessment Date Thrive assessed 04/08/22 10/07/22 13:55 Const General: cooperative and no acute distress Orientation/consciousness: patient oriented x3 HENMT Head: Yes normocephalic and Yes atraumatic Face and sinus: Yes sinuses nontender Mouth: oropharynx normal and moist mucous membranes Throat: Yes posterior oropharynx normal Eyes General: appearance normal, both eyes and all related structures Pupils: Equal, round and reactive pupils present EOM: EOMs intact bilaterally Neck Neck: Yes normal visual inspection, Yes full ROM and Yes no lymphadenopathy Thyroid: Thyroid normal Resp Effort & Inspection: normal respiratory effort and able to speak in complete sentences Auscultation: clear to auscultation bilaterally, no crackles, no rales, no rhonchi and no wheezes Cardio Rate: regular rate Rhythm: regular rhythm Heart sounds: S1 normal heart sound present, S2 normal heart sound present and no murmurs GI Palpation (GI): Soft to palpation, not firm, nontender, no guarding, not rigid and no hepatosplenomegaly Auscultation: normal bowel sounds General: No CVA tenderness Back/Spine/Pelvis Back: No CVA tenderness Skin General skin exam: no rashes or lesions noted Neuro General: patient oriented x3 Cranial nerves: Yes Equal, round and reactive pupils present Gait exam (Neuro): Normal gait present Extrem Other: Bilateral hands full range of motion, nontender Right lower extremity distal anterior aspect nontender, normal to inspection, skin is intact General: Yes full ROM and No edema Results AMB Hemoglobin A1c AMB Hemoglobin A1c 6.0 % Last Edit by SUHAS Anton on 10/07/22 14:15 Results Reviewed Results Reviewed: Laboratory Last Values Hgb A1c (Clinic) 6.0 % (4.0-6.0) 10/07/22 14:13 Assessment and Plan Assessment & Plan (1) Hyperlipidemia: Code(s): E78.5 - Hyperlipidemia, unspecified Plan: LDL 133 09/2022, goal LDL less than 100 Simvastatin 20 mg at bedtime Low-cholesterol diet (2) Hypothyroidism: Comment: same dose from previous PCP X 2 months; previously from 125 mcg Code(s): E03.9 - Hypothyroidism, unspecified Plan: TSH 5.09, free T4 1.09 09/2022 Levothyroxine 125 mcg daily (3) DM type 2 (diabetes mellitus, type 2): Code(s): E11.9 - Type 2 diabetes mellitus without complications Plan: A1c 6.0 today Continue metformin 500 mg daily Low-carbohydrate diet Microalbumin 41 06/2022 Diabetic eye exam 09/2021 per patient, she will call for another diabetic eye exam (4) Essential hypertension: Code(s): I10 - Essential (primary) hypertension Plan: Goal BP equal or less than 140/90 Losartan 50 mg daily Carvedilol 6.25 mg b.i.d. Increase amlodipine to 5 mg daily Low-sodium diet Monitor blood pressures daily at home (5) Asthma-COPD overlap syndrome: Code(s): J44.9 - Chronic obstructive pulmonary disease, unspecified Plan: Continue to follow-up with pulmonology Dr. Ayala Continue current treatment (6) ALISA (obstructive sleep apnea): Code(s): G47.33 - Obstructive sleep apnea (adult) (pediatric) Plan: Continue to follow-up with pulmonology Dr. Ayala On CPAP (7) GERD (gastroesophageal reflux disease): Code(s): K21.9 - Gastro-esophageal reflux disease without esophagitis Plan: Stable with pantoprazole 20 mg daily Avoid GERD trigger foods Do not lay down 2-3 hours after evening meal (8) Right leg pain: Code(s): M79.604 - Pain in right leg Plan: Will obtain x-ray Orthopedic referral (9) Bilateral hand pain: Code(s): M79.641 - Pain in right hand; M79.642 - Pain in left hand Plan: OT referral Plan Follow-up in 3 months or sooner as needed Orders: Orders OT Evaluation and Treatment 10/07/22 M79.641 - Pain in right hand, M79.642 - Pain in left hand Vitamin B12 and Folate 3 Months E11.9 - Type 2 diabetes mellitus without complications TSH reflex Free T4 3 Months E03.9 - Hypothyroidism, unspecified Lipid Panel 3 Months E78.5 - Hyperlipidemia, unspecified Comprehensive [place]. Panel Fast 3 Months E11.9 - Type 2 diabetes mellitus without complications Hemoglobin A1c 3 Months E11.9 - Type 2 diabetes mellitus without complications XR tibia fibula RT 2V 10/07/22 M79.604 - Pain in right leg AMB Hemoglobin A1c 10/07/22 E11.9 - Type 2 diabetes mellitus without complications Referrals Orthopedics Referral M79.604 - Pain in right leg Medications: New amlodipine 5 mg PO BEDTIME 90 tabs 0RF I10 - Essential (primary) hypertension amlodipine 5 mg PO DAILY 90 tabs 0RF I10 - Essential (primary) hypertension Discontinued amlodipine Discontinued Reason: Doctor's Order 2.5 mg PO DAILY 90 tabs 0RF gabapentin (Neurontin) Discontinued Reason: Doctor's Order 300 mg PO BEDTIME 30 days 30 caps 6RF Coding Level of Care Code Est Pt Level 4 (30559) Diagnoses Hyperlipidemia E78.5 Hypothyroidism E03.9 DM type 2 (diabetes mellitus, type 2) E11.9 Essential hypertension I10 Asthma-COPD overlap syndrome J44.9 ALISA (obstructive sleep apnea) G47.33 GERD (gastroesophageal reflux disease) K21.9 Right leg pain M79.604 Bilateral hand pain M79.641; M79.642
[2022-10-07 14:05] VITALS: BP 178/96; PULSE 71; O2SAT 96; BMI 27.1
[2022-10-07 14:43] VITALS: BP 170/68
== END 2022-10-07 14:55 | disposition home or self-care (01) ==
PROVIDERS: PCP Nurse Practitioner Family; Visit Provider Nurse Practitioner Family
DX: E11.9 Type 2 diabetes mellitus without complications (principal); E03.9 Hypothyroidism, unspecified; I10 Essential (primary) hypertension; J44.9 Chronic obstructive pulmonary disease, unspecified; K21.9 Gastro-esophageal reflux disease without esophagitis; E78.5 Hyperlipidemia, unspecified; G47.33 Obstructive sleep apnea (adult) (pediatric); M79.604 Pain in right leg; M79.641 Pain in right hand; M79.642 Pain in left hand
CPT/HCPCS: 83036; 99214

== ENCOUNTER 2022-10-07 15:11 | Outpatient (REF) | payer OTHER, SELFPAY ==
--- NOTE | ~2022-10-07 | XR_ITS ---
EXAMINATION: XR TIBIA AND FIBULA, RIGHT CLINICAL INFORMATION: Pain in right leg. COMPARISON: 05/08/2014, 04/15/2014. TECHNIQUE: AP and lateral views of the right tibia and fibula were obtained. FINDINGS: Redemonstration of intramedullary fernando transfixing a healed mid to distal tibial diaphyseal fracture. Redemonstration of healed fracture of the adjacent mid to distal fibular diaphysis. Redemonstration of punctate densities in the soft tissues and subjacent cortex along the medial aspect of the distal third of the tibia at the level of the previously removed screw. Mild degenerative changes in the medial and lateral compartments of the knee. XR/XR tibia fibula RT 2V IMPRESSION: Healed tibial and fibular diaphyseal fractures. Intramedullary tibial fernando appears intact. Redemonstration of punctate densities in the soft tissues and subjacent cortex along the medial aspect of the distal third of the tibia at the level of the previously removed screw. Additional imaging with CT scan or MRI should be considered for better visualization as these modalities are much more sensitive for detection of fracture or other underlying pathology.
== END 2022-10-07 15:12 | disposition home or self-care (01) ==
LOC: HO.XRAY 15:11
PROVIDERS: PCP Nurse Practitioner Family; Visit Provider Nurse Practitioner Family
DX: M79.604 Pain in right leg (principal)
CPT/HCPCS: 73590

== ENCOUNTER 2022-10-12 13:06 | Outpatient (AMB) | payer OTHER, SELFPAY ==
--- NOTE | 2022-10-12 13:10 | A.OFFVIS_ITS ---
Intake Vital Signs 10/12/22 13:11 Height 5 ft 3 in Weight 152 lb 1.903 oz BMI 26.9 BP 104/48 L Blood Pressure Location Lt brachial Position Sitting Pulse 74 Intake Visit Reasons: 1 yr f/up per dc Intake Note: 1 year follow up Licensed Final Expense Agents Required: Yes Licensed Final Expense Agents Language: Nutritional Health Coach Name: [id number] Logan Accompanied by: Self / Same As Patient Allergies No Known Allergies [No Known Allergies*] Allergy (Verified 10/12/22 13:12) Medication List - Last Reconciled 10/12/22 by Vamsi Moody MD albuterol sulfate 90 mcg/actuation 2 puffs inhalation Q6H PRN 30 days albuterol sulfate 2.5 mg (3 mL) inhalation Q6H PRN 30 days amlodipine 5 mg PO DAILY ascorbic acid (vitamin C) mg PO aspirin 81 mg PO DAILY blood-glucose meter (FreeStyle Lite Meter kit) test daily carvedilol 6.25 mg PO BID cholecalciferol (vitamin D3) 25 mcg PO DAILY ciqmzyrmpng-nqooqumih-pvrwzgen 200-62.5-25 mcg (Trelegy Ellipta) 1 inh inhalation DAILY 30 days gabapentin 100 mg PO BEDTIME 30 days ibuprofen 600 mg PO PRN [incontinence wipes As directed] levothyroxine 125 mcg PO DAILY losartan 50 mg PO DAILY metformin 500 mg PO DAILY montelukast 10 mg PO BEDTIME multivitamin (Daily Multi-Vitamin tablet) 1 tab PO DAILY nebulizers As directed pantoprazole 20 mg PO DAILY Saccharomyces boulardii (Daily Probiotic (S. boulardii)) 5,000 mmu cells PO DAILY sertraline 100 mg PO DAILY simvastatin 20 mg PO BEDTIME [tumeric PO DAILY] HPI HPI Comments History of Present Illness Details Joanna returns for follow-up. In the past, she has been seen regarding chest pains. Multiple cardiovascular risk factors including diabetes, hypertension, dyslipidemia. No documented coronary disease myocardial infarction. She states she still gets these chest pains on the left side. Recently had an episode of chest pain as well as left arm pain. However, that happened at rest. 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 In the past, perfusion imaging was unremarkable. [facility] Medical History (Updated 10/12/22 @ 13:40 by Vamsi Moody MD) Asthma Asthma-COPD overlap syndrome Bronchitis Chronic allergic rhinitis COVID-19 Encounter to establish care (~02/22/21) History of COVID-19 ALISA (obstructive sleep apnea) Pleuritic chest pain Pre-op evaluation Surgical History History of back surgery History of surgery on lower extremity History of thyroid surgery Family History Father Diabetes HTN (hypertension) Heart disease Mother Diabetes HTN (hypertension) Other Asthma Social History Household Members: None Housing: Apartment Alcohol intake: never Patient Tobacco Use Status: Former Tobacco user Tobacco use type: Cigarette Years Smoked: 8 years old e-Cigarette/Vaping Use: Never Used Second Hand Smoke Exposure: No service: No Current occupational status: disabled Current occupational exposures/hazards: No Cognitive needs: Yes (cane) Hearing needs: No Vision needs: Yes Review of Systems Const Denies weakness ENT Denies dizziness Card Denies chest pain, Denies chest pain with activity, Denies syncope, Denies rapid heart rate, Denies pedal edema, Denies edema, Denies leg edema, Denies lightheadedness, Denies palpitations, Denies dyspnea, Denies dyspnea on exertion and Denies orthopnea Resp Denies cough, Denies dyspnea and Denies dyspnea on exertion GI Denies hematochezia and Denies change in stool character Musc Denies abnormal gait, Denies muscle cramps, Denies muscle weakness, Denies numbness, Denies radiating pain into limb and Denies tingling Neuro Denies abnormal gait, Denies dizziness, Denies syncope, Denies numbness, Denies tingling and Denies weakness Endo Denies palpitations Physical Exam Vital Signs: Last Vital Signs Pulse 74 10/12/22 13:11 BP 104/48 L 10/12/22 13:11 BMI result Body Mass Index 26.9 Const General: comfortable and no acute distress Orientation/consciousness: patient oriented x3 HEENT Other: Unremarkable Head: Yes normal to inspection Neck Neck: Yes normal visual inspection Chest Chest palpation & inspection: normal inspection of the chest Resp Auscultation: clear to auscultation bilaterally Cardio Palpation: normal PMI Heart sounds: S1 normal heart sound present, S2 normal heart sound present, no gallops, Murmur heart sound present systolic I/ and at the right sternal border and no rubs GI Palpation (GI): Soft to palpation Back/Spine/Pelvis Other: unremarkable Skin General skin exam: no rashes or lesions noted Neuro General: patient oriented x3 Extrem General: Yes normal to inspection Psych Mental Status: mental status grossly normal Office Procedures EKG Details: EKG with sinus rhythm at 74/Min; sinus arrhythmia; voltage criteria for LVH; nonspecific ST-T changes. [id number], Complete Assessment & Plan Assessment & Plan (1) Precordial chest pain: Code(s): R07.2 - Precordial pain (2) Non-rheumatic aortic stenosis: Code(s): I35.0 - Nonrheumatic aortic (valve) stenosis (3) DM type 2 (diabetes mellitus, type 2): Code(s): E11.9 - Type 2 diabetes mellitus without complications (4) Essential hypertension: Code(s): I10 - Essential (primary) hypertension (5) Hyperlipidemia: Code(s): E78.5 - Hyperlipidemia, unspecified (6) ALISA (obstructive sleep apnea): Code(s): G47.33 - Obstructive sleep apnea (adult) (pediatric) Plan She has recurrent chest pains and multiple cardiovascular risk factors. Last year, echocardiogram with LVEF of 55-60%. Moderate diastolic dysfunction. Moderate left atrial dilatation with mild aortic stenosis. Myocardial perfusion imaging study was unremarkable. As she continues to complain of chest pain with most recent episode of left- sided chest pain/left arm pain, we will repeat her perfusion imaging. Based on this, further plan. The aortic stenosis can be followed up on echocardiograms. Total time spent including review of data, counseling, documentation, coordination of care-31 minutes. Orders: Orders CA lexiscan stress w dago Today R07.2 - Precordial pain NM cardiolite stress test Today R07.2 - Precordial pain Coding Level of Care Code Est Pt Level 4 (25517) Diagnoses Precordial chest pain R07.2 Non-rheumatic aortic stenosis I35.0 DM type 2 (diabetes mellitus, type 2) E11.9 Essential hypertension I10 Hyperlipidemia E78.5 ALISA (obstructive sleep apnea) G47.33 CPT Codes EKG - CPT: 93236-[id number], Complete ([id number])
[2022-10-12 13:11] VITALS: BP 104/48; PULSE 74; BMI 26.9
== END 2022-10-12 13:37 | disposition home or self-care (01) ==
PROVIDERS: PCP Nurse Practitioner Family; Referring Provider Nurse Practitioner Family; Visit Provider Internal Medicine
DX: R07.2 Precordial pain (principal); I35.0 Nonrheumatic aortic (valve) stenosis; E11.9 Type 2 diabetes mellitus without complications; I10 Essential (primary) hypertension; E78.5 Hyperlipidemia, unspecified; G47.33 Obstructive sleep apnea (adult) (pediatric)
CPT/HCPCS: 93010; 99214

== ENCOUNTER → 2022-10-12 13:06 | Outpatient (BNVA) | payer OTHER, SELFPAY | PROVIDERS: PCP Nurse Practitioner Family; Referring Provider Nurse Practitioner Family; Visit Provider Internal Medicine | DX: R07.2 Precordial pain (principal); I35.0 Nonrheumatic aortic (valve) stenosis; I10 Essential (primary) hypertension; E11.9 Type 2 diabetes mellitus without complications; E78.5 Hyperlipidemia, unspecified; G47.33 Obstructive sleep apnea (adult) (pediatric) | CPT/HCPCS: 93005; 99212 ==

== ENCOUNTER 2022-11-01 14:05 | Outpatient (AMB) | payer OTHER, SELFPAY ==
--- NOTE | 2022-11-01 14:17 | MHC.OFFVIS ---
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 Required: No Accompanied by: Self / Same As Patient Allergies No Known Allergies [No Known Allergies*] Allergy (Verified 11/01/22 20:40) Medication List - Last Reconciled 11/01/22 by EVE Storey-YVON albuterol sulfate 90 mcg/actuation 2 puffs inhalation Q6H PRN 30 days albuterol sulfate 2.5 mg (3 mL) inhalation Q6H PRN 30 days amlodipine 5 mg PO DAILY ascorbic acid (vitamin C) mg PO aspirin 81 mg PO DAILY blood-glucose meter (FreeStyle Lite Meter kit) test daily carvedilol 6.25 mg PO BID cholecalciferol (vitamin D3) 25 mcg PO DAILY huelxnomxsd-wmcptybiu-uecomdgc 200-62.5-25 mcg (Trelegy Ellipta) 1 inh inhalation DAILY 30 days gabapentin 100 mg PO BEDTIME 30 days ibuprofen 600 mg PO PRN [incontinence wipes As directed] levothyroxine 125 mcg PO DAILY losartan 50 mg PO DAILY metformin 500 mg PO DAILY mirabegron ER (Myrbetriq) 25 mg PO DAILY 90 days montelukast 10 mg PO BEDTIME multivitamin (Daily Multi-Vitamin tablet) 1 tab PO DAILY nebulizers As directed pantoprazole 20 mg PO DAILY Saccharomyces boulardii (Daily Probiotic (S. boulardii)) 5,000 mmu cells PO DAILY sertraline 100 mg PO DAILY simvastatin 20 mg PO BEDTIME [tumeric PO DAILY] HPI HPI Comments History of Present Illness Details Joanna is a pleasant 72-year-old female patient of Dr. Mitchell. She has a past medical history of chronic allergic rhinitis, bronchitis, asthma, and obstructive sleep apnea She presents this the office today for follow-up of her urinary incontinence. When asked patient reports to be doing and feeling well. When asked she does report feeling urinary incontinence to have worsened since her last office visit here which was approximately 3 months ago. Of note, patient has previously underwent pelvic floor therapy with improvement in urinary incontinence. However, she does report having a hard time keeping up with exercises at home and reports forgetting to preform them. She states I remember to do them when I am already laying in bed for sleep . Previous workup has included a retroperitoneal ultrasound noting unremarkable imaging. In office urinalysis results reviewed with the patient today. PVR 35ml's. Discussed at length potential causes for urinary incontinence. Discussed referral for continuation of pelvic floor therapy. At this time patient does not wish to undergo pelvic floor therapy. Discussed trial of medication verses continuation of lifestyle modifications. When asked she denies denies urinary urgency, urinary frequency, incontinence, nocturia, hematuria, dysuria, foul smelling urine, changes to urinary stream, flank pain, fever, and or chills. She otherwise offers no issues or concerns at this time. [facility] Medical History Pleuritic chest pain Chronic allergic rhinitis Bronchitis History of COVID-19 Pre-op evaluation Encounter to establish care (~02/22/21) Asthma-COPD overlap syndrome COVID-19 ALISA (obstructive sleep apnea) Asthma Surgical History History of surgery on lower extremity History of back surgery History of thyroid surgery Family History Father Diabetes HTN (hypertension) Heart disease Mother Diabetes HTN (hypertension) Other Asthma Social History Household Members: None Housing: Apartment Alcohol intake: never Patient Tobacco Use Status: Former Tobacco user Tobacco use type: Cigarette Years Smoked: 8 years old e-Cigarette/Vaping Use: Never Used Second Hand Smoke Exposure: No service: No Current occupational status: disabled Current occupational exposures/hazards: No Cognitive needs: Yes (cane) Hearing needs: No Vision needs: Yes Review of Systems Const Reports no additional complaints Eyes Reports no additional complaints ENT Reports no additional complaints Card Reports no additional complaints Resp Reports as per HPI GI Details: Patient reports history of diverticulitis Reports no additional complaints Reports as per HPI Musc Reports no additional complaints Neuro Reports no additional complaints Psych Reports no additional complaints Endo Reports no additional complaints Luis Alfredo/Lymph Reports no additional complaints Aller/Immun Reports no additional complaints Physical Exam Const General: cooperative, healthy appearing, comfortable, no acute distress, well developed, alert and awake Orientation/consciousness: patient oriented x3 Limitations: no limitations HEENT Head: Yes normal to inspection, Yes normocephalic and Yes atraumatic Ears: hearing grossly normal bilaterally Eyes General: appearance normal, both eyes and all related structures Neck Neck: Yes normal visual inspection and Yes trachea midline Chest Chest palpation & inspection: normal inspection of the chest Resp Effort & Inspection: normal respiratory effort and able to speak in complete sentences Cardio Rate: regular rate GI Inspection: Yes normal to inspection General: Yes no CVA tenderness Back/Spine/Pelvis Back: no CVA tenderness Skin General skin exam: no rashes or lesions noted Neuro General: patient oriented x3 Extrem General: Yes normal to inspection Psych Appearance: grossly normal and well kempt Mental Status: mental status grossly normal Speech and movement: Normal speech and movement present and Clear speech present Affect: normal affect Attitude: cooperative Thought process: Normal thought process present Thought content: Normal thought content present Insight: Good insight present (Psych) Judgement: Good judgement present (Psych) Office Procedures Post Void Residual Post Residual Void Post Void Residual (PVR): 35 [id number] Void Residual by ultrasound Results AMB Urinalysis, Automated UA Leukoctes 15 Damien/uL Last Edit by [employer] on 11/01/22 14:43 UA Nitrite Last Edit by [employer] on 11/01/22 14:43 UA Urobilinogen 0.2 mg/dL Last Edit by [employer] on 11/01/22 14:43 UA Protein 15 mg/dL Last Edit by [employer] on 11/01/22 14:43 UA pH 6.0 Last Edit by [employer] on 11/01/22 14:43 UA Blood 0 Lawrence/uL Last Edit by [employer] on 11/01/22 14:43 UA Specific [place] 1.020 Last Edit by [employer] on 11/01/22 14:43 UA Ketone Negative Last Edit by [employer] on 11/01/22 14:43 UA Bilirubin 1 mg/dL Last Edit by [employer] on 11/01/22 14:43 UA Glucose 0 mg/dL Last Edit by [employer] on 11/01/22 14:43 Results Reviewed Results Reviewed: Laboratory Last Values Urine pH (Auto) 6.0 11/01/22 14:20 Specific [place] (Auto) 1.020 11/01/22 14:20 Urine Protein (Auto) 15 mg/dL 11/01/22 14:20 Glucose (UA)(Auto) 0 mg/dL 11/01/22 14:20 Urine Ketones (Auto) Negative 11/01/22 14:20 Urine Blood (Auto) 0 Lawrence/uL 11/01/22 14:20 Urine Bilirubin (Auto) 1 mg/dL 11/01/22 14:20 Urine Urobilinogen (Auto) 0.2 mg/dL 11/01/22 14:20 Leukocyte Esterase (Auto) 15 Damien/uL 11/01/22 14:20 Assessment & Plan Assessment & Plan (1) Urinary incontinence: Code(s): R32 - Unspecified urinary incontinence Plan In office urinalysis results reviewed with the patient today; as noted above. PVR 35 mL. Discussed at length potential causes for urinary incontinence. Discussed reconsidering attending pelvic floor therapy again; however patient declines Start Myrbetriq as discussed and prescribed. Discussed possible near future in office cystoscopy if symptoms persist and/or worsen. Discussed possible near future urodynamics Discussed bladder triggers/irritants. Discussed timed voiding. Follow-up in 6 weeks with PVR; or sooner with any issues, concerns, and or questions. Orders: Orders AMB Urinalysis Automated Today Z13.9 - Encounter for screening, unspecified AMB Post Void Residual by ultrasound Today N39.46 - Mixed incontinence Medications: New mirabegron ER (Myrbetriq) 25 mg PO DAILY 90 days 90 tabs 1RF N32.81 - Overactive bladder, R35.1 - Nocturia Patient Instructions: The patient had an opportunity to ask questions regarding the treatment plan. All questions were answered. Physical exam, labs, and imaging were discussed and reviewed in detail. As well as risks, benefits, and discussion of treatment choices. No major barriers to understanding were identified. The patient expressed understanding and agreement with the above treatment plan. The patient was made aware they should contact our office by phone for worsening of their current condition, the appearance of new symptoms, or with any questions or concerns. Compliance is encouraged with any medications and follow up testing that is ordered. It is a privilege to be allowed the opportunity to participate in? your urological care.? Again, if you have any questions or concerns If you have any questions or concerns please do not hesitate to contact me. The office is [phone]. This note is constructed using voice recognition software. While every effort has been made to ensure accuracy subscription agent errors may have been included. Yours sincerely, EVE Storey-YVON Coding Level of Care Code Est Pt Level 4 (52343) Diagnoses Urinary incontinence R32 CPT Codes Post Residual Void - PVR CPT Code: 76056-[id number] Void Residual by ultrasound ([id number])
== END 2022-11-01 15:00 | disposition home or self-care (01) ==
PROVIDERS: PCP Nurse Practitioner Family; Visit Provider Nurse Practitioner Family
DX: R32 Unspecified urinary incontinence (principal)
CPT/HCPCS: 99214

== ENCOUNTER → 2022-11-01 14:05 | Outpatient (BNVA) | payer OTHER, SELFPAY | PROVIDERS: PCP Nurse Practitioner Family; Visit Provider Nurse Practitioner Family | DX: R32 Unspecified urinary incontinence (principal) | CPT/HCPCS: 51798; 81003; 99212 ==

== ENCOUNTER 2022-11-10 09:17 | Outpatient (AMB) | payer OTHER, SELFPAY ==
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
[2022-11-10 09:45] VITALS: BMI 26.9
== END 2022-11-10 09:45 | disposition home or self-care (01) ==
PROVIDERS: PCP Nurse Practitioner Family; Visit Provider Physical Medicine & Rehabilitation
DX: M25.571 Pain in right ankle and joints of right foot (principal); G89.29 Other chronic pain; Z86.69 Personal history of other diseases of the nervous system and sense organs
CPT/HCPCS: 99204

== ENCOUNTER → 2022-11-10 09:17 | Outpatient (BNVA) | payer OTHER, SELFPAY | PROVIDERS: PCP Nurse Practitioner Family; Visit Provider Physical Medicine & Rehabilitation ==

== ENCOUNTER 2022-11-14 14:00 | Outpatient (RCR) | payer OTHER, SELFPAY ==
--- NOTE | 2022-10-26 15:09 | MHC.OT.EP ---
[address] [phone] Occupational Therapy Plan of Care Patient Name: Joanna Lacey Date of Evaluation: 10/26/22 Diagnosis: B/L HAND PAIN Pain Location: LEFT HAND, D1 CMC, D2 MCP, D3-D5 PIP AND DIPj PAIN BEST IN AM (4/10), WORSENS DAY GOES ON (10/10) Pain Score: 4-10/10 Pain Scale Used: Numeric (0 - 10) Aggravating Factors: DAILY USE, GRIPPING Alleviating Factors: VOLTAREN GEL, TYLENOL, GABBAPENTEN Assessment: MS MARIA DEL ROSARIO LACEY REPORTS A TWO MONTH HISTORY OF L >R HAND PAIN. SHE STATES SHE HAS PAIN GREATEST IN HER LEFT THUMB, AND MIDDLE, RING AND SMALL FINGERS. HER PAIN IN HER RIGHT HAND HAS SLOWLY IMPROVED. SHE HAS A HISTORY OF B/L TRIGGER FINGER WITH CORTISONE INJECTIONS THREE YEARS AGO. AT THIS TIME, SHE DENIES LOCKING OF DIGITS. 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 A 68% LIMITATION WAS REPORTED PER THE QUICK DASH ASSESSMENT. ONGOING OT IS WARRANTED TO ADDRESS ROM, STRENGTH, COORDINATION, PAIN AND ABILITY TO PERFORM ADLs AND IADLs WITH ACTIVITY MODIFICATIONS. Frequency and Duration: The patient will be seen 2X/WEEK FOR 4 WEEKS Short Term Goals: IND HEP IND USE OF HEAT/ICE FOR PAIN RELIEF IND ORTHOSIS USE IND JT PROTECTION AND ACTIVITY MODIFICATION REPORT <6/10 PAIN AT REST AND WITH LIGHT ADLs Turbo Operator Goals: L GROSS GRASP >20 POUNDS REPORT <4/10 PAIN WITH ADLs IMPROVE COORDINATION TO MOD FUNCTIONAL PER FDT IN L HAND QUICK DASH <40% Treatment Plan: Therapeutic Exercise Therapeutic Activity Home Exercise Program Splinting Neuro Re-ed Patient Education Desensitization/Sensory Re-ed Edema Control ADL Training Ultrasound NMES Iontophoresis Paraffin Fluidotherapy MHP Cold Packs Joint Mobilization Soft Tissue Mobilization Kinesiotaping Other (see comments) Electronically Signed By: SYBIL BARBER OTR/L Please Sign and return to therapist. Thank you once again for your referral.
--- NOTE | 2022-12-12 13:10 | MHC.OT.DC ---
[address] [phone] F: [phone] Occupational Therapy Discharge Note Patient Name: Joanna Nagy Provider: Shahida Mitchell Diagnosis: B/L HAND PAIN Date of Evaluation: 10/26/22 Date of Discharge: 12/12/22 Treatments to Date: 5 Cancellations to Date: 2 No Shows to Date: 0 Discharge Status: Improved Function Independent with HEP Patient Elected to Stop Discharge Summary: MS MARIA DEL ROSARIO NAGY PROGRESSED WELL WITH HER OT RX SESSIONS. A CUSTOM [facility] ORTHOSIS WAS FABRICATED AND PROVIDED PAIN AND JOINT PROTECTION FOR THE PATIENT DURING IADLs. SHE WAS IND WITH HER HEP AND HER TRIGGERING WAS IMPROVING. NO FURTHER OT WARRANTED AT THIS TIME, Pt SELF D/C'D. Electronically Signed By: SYBIL BARBER OTR/L Reviewed/agree with student documentation: N/A Therapist: Please Sign and return to therapist, thank you for your referral.
== END 2022-12-12 13:10 | disposition home or self-care (01) ==
LOC: HO.OT 14:00
PROVIDERS: PCP Nurse Practitioner Family; Visit Provider Nurse Practitioner Family
DX: M79.641 Pain in right hand (principal); M79.642 Pain in left hand
CPT/HCPCS: 29130; 97035; 97110; 97140; 97166; 97760

== ENCOUNTER → 2022-12-01 10:03 | Outpatient (REF) | payer OTHER, SELFPAY ==
--- NOTE | ~2022-12-01 | NM_ITS ---
Lexiscan Myocardial perfusion study Indication: Chest pain, assess for coronary disease and ischemia Technique: The patient was brought in for a Lexiscan perfusion study on 12/01/2022 and was injected 0.4 mg of Lexiscan intravenously. Within a minute of this injection 25 mCi of sestamibi was given intravenously. Images were obtained using the SPECT gamma camera interlaced with the gating device. Images were obtained in supine position. Resting perfusion study was performed on 12/05/2022. Patient was administered 25 mCi of sestamibi intravenously at rest. Images were then obtained in supine position. Images were processed with the software and compared side to side in short axis, horizontal long axis and vertical long axis views. Total DLP 150mGy-cm. Findings: Raw acquisition reviewed. Arms by the patient's side. The stress perfusion study showed no significant perfusion defects. Both uncorrected as well as CT attenuation corrected images were reviewed. The gated study shows normal LV systolic function with calculated LVEF of 66%. LV cavity is normal in size. The gated study shows normal wall thickening and contraction of segments. Resting study shows no significant perfusion defects. Gating at rest reveals normal wall motion with ejection fraction at 53%. The findings are consistent with no clear reversible or fixed perfusion defects. NM/NM cardiolite stress test Impression: 1. Myocardial perfusion imaging study shows probably normal myocardial perfusion. 2. Gated LVEF is 66% during stress and 53% during rest. 3. Transient ischemic dilatation not present. EKG component of the test reported separately.
--- NOTE | 2022-12-01 10:06 | CA_ITS ---
Acquisition Time: 2022-12-01 10:26:00 Total Exercise Time: 00:02:00 Test Indications: Chest Pain Medications: SEE H Protocol: LEXISCAN Max HR: 088 BPM 60% of Pred: 146 BPM Max BP: 160/070 mmHG Max Work Load: 1.0 METS Pharmacological stress test with Lexiscan injection while sitting and kicking her legs, with report of chest stabbing chest pain in mid chest that radiated to her back, without arhythmias, with normotensive repsponse to normotensive, with nondiagnostic EKGs. Reported stabbing chest/spine pain mid-test that improved shortly after. Aminophylline 75mg IVp given to reverse Lexiscan. Nuclear images pending. Test reviewed with Dr. Dietz. Referred By: Vamsi Moody Overread By: Tonya Patterson
== END ==
LOC: HO.CARD 10:03
PROVIDERS: PCP Nurse Practitioner Family; Visit Provider Internal Medicine
DX: R07.2 Precordial pain (principal)
CPT/HCPCS: 78452; 93017; A9500; J0280; J2785

== ENCOUNTER → 2022-12-01 10:06 | Outpatient (BNV) | payer OTHER, SELFPAY | PROVIDERS: PCP Nurse Practitioner Family; Visit Provider Nurse Practitioner | DX: R07.2 Precordial pain (principal) | CPT/HCPCS: 78452; 93016; 93018 ==

== ENCOUNTER 2022-12-06 11:01 | Outpatient (REF) | payer OTHER, SELFPAY ==
--- NOTE | ~2022-12-06 | CT_ITS ---
EXAMINATION: CT LOWER LEG WITH CONTRAST, RIGHT CLINICAL INFORMATION: Right leg pain. Fracture and ORIF. COMPARISON: Right tibia and fibula radiographs dated 10/07/2022 as well as right lower leg radiographs dated 05/08/2014. TECHNIQUE: Contiguous axial CT images of the right lower leg were obtained following the IV administration of 85 mL Omnipaque 350 contrast. Sagittal and coronal reformats were provided and reviewed. This CT examination was performed using dose optimization techniques as appropriate, variously including the following: *Automated exposure control *Adjustment of mA and/or kV according to patient size (this includes techniques or standardized protocols for targeted exams where dose is matched to indication/reason for exam; i.e. extremities or head) *Use of iterative reconstruction technique. DOSE: 382 mGy-cm. FINDINGS: Redemonstration of a tibial ORIF without hardware fracture or perihardware lucency to suggest loosening or infection. The distal stabilization screw has been removed as demonstrated on the recent radiographs and fluoroscopic radiographs from 2014. Tiny soft tissue calcification and metallic densities adjacent to the distal stabilization screw surgical site, unchanged. No acute osseous fracture. No concerning lytic or blastic osseous lesion. No talar osteochondral lesion. Healed mid/distal tibial and fibular fractures in unchanged anatomic alignment. Zsbjmrts-tx-vlfddx medial compartment joint space narrowing with subchondral sclerosis and subchondral cystic change. Tiny tricompartmental marginal osteophytes. Small right knee joint effusion. No abnormal soft tissue mass or fluid collection. No enhancing soft tissue lesion. The visualized muscles and tendons are grossly intact; however, evaluation is limited on CT examination. CT/CT lower leg RT w IV con IMPRESSION: 1. Redemonstration of a tibial ORIF without evidence of hardware complication. The distal stabilization screw has been removed. 2. Healed mid/distal tibial and fibular fractures in unchanged anatomic alignment. 3. Qotrfjtw-dk-lgobni medial compartment osteoarthritis with a small joint effusion.
[2022-12-07 07:10] LABS: Creatinine POC 0.5 mg/dL (0.5-1.4); GFR POC 60
== END 2022-12-06 11:02 | disposition home or self-care (01) ==
LOC: HO.CT 11:01
PROVIDERS: PCP Nurse Practitioner Family; Visit Provider Nurse Practitioner Family
DX: M79.604 Pain in right leg (principal)
CPT/HCPCS: 73701; 82565

== ENCOUNTER 2022-12-08 12:10 | Outpatient (AMB) | payer OTHER, SELFPAY ==
[2022-12-08 12:15] VITALS: BMI 26.9
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
== END 2022-12-08 12:39 | disposition home or self-care (01) ==
PROVIDERS: PCP Nurse Practitioner Family; Visit Provider Physical Medicine & Rehabilitation
DX: M25.571 Pain in right ankle and joints of right foot (principal); G89.29 Other chronic pain; Z86.69 Personal history of other diseases of the nervous system and sense organs
CPT/HCPCS: 99213

== ENCOUNTER → 2022-12-08 12:10 | Outpatient (BNVA) | payer OTHER, SELFPAY | PROVIDERS: PCP Nurse Practitioner Family; Visit Provider Physical Medicine & Rehabilitation | DX: M25.571 Pain in right ankle and joints of right foot (principal); G89.29 Other chronic pain; Z86.69 Personal history of other diseases of the nervous system and sense organs | CPT/HCPCS: 99212 ==

== ENCOUNTER 2022-12-13 13:43 | Outpatient (AMB) | payer OTHER, SELFPAY ==
--- NOTE | 2022-12-13 14:15 | MHC.OFFVIS ---
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 Required: No Accompanied by: Self / Same As Patient Allergies No Known Allergies [No Known Allergies*] Allergy (Verified 12/13/22 21:08) Medication List - Last Reconciled 12/13/22 by EVE Storey-YVON albuterol sulfate 90 mcg/actuation 2 puffs inhalation Q6H PRN 30 days albuterol sulfate 2.5 mg (3 mL) inhalation Q6H PRN 30 days amlodipine 5 mg PO DAILY ascorbic acid (vitamin C) mg PO aspirin 81 mg PO DAILY blood-glucose meter (FreeStyle Lite Meter kit) test daily carvedilol 6.25 mg PO BID cholecalciferol (vitamin D3) 25 mcg PO DAILY uwtqoosgjmg-hhsaluqjc-mrhftozn 200-62.5-25 mcg (Trelegy Ellipta) 1 inh inhalation DAILY 30 days gabapentin 100 mg PO BEDTIME 30 days ibuprofen 600 mg PO PRN [incontinence wipes As directed] levothyroxine 125 mcg PO DAILY losartan 50 mg PO DAILY metformin 500 mg PO DAILY mirabegron ER (Myrbetriq) 25 mg PO DAILY 90 days montelukast 10 mg PO BEDTIME multivitamin (Daily Multi-Vitamin tablet) 1 tab PO DAILY nebulizers As directed pantoprazole 20 mg PO DAILY Saccharomyces boulardii (Daily Probiotic (S. boulardii)) 5,000 mmu cells PO DAILY sertraline 100 mg PO DAILY simvastatin 20 mg PO BEDTIME solifenacin (Vesicare) 5 mg PO DAILY 30 days [tumeric PO DAILY] HPI HPI Comments History of Present Illness Details Joanna is a pleasant 72-year-old female patient of Dr. Mitchell. She has a past medical history of chronic allergic rhinitis, bronchitis, asthma, and obstructive sleep apnea. She presents this the office today for follow-up of her urinary incontinence. Of note, patient was seen approximately 6 weeks ago at which time she was started on Myrbetriq. When asked patient reports to be doing and feeling well. She reports feeling somewhat improvement lower urinary tract symptoms while taking Myrbetriq however feels voiding parameters could be better. She reports feeling when practicing pelvic floor exercises symptoms improved significantly however if she does not she feels symptoms worsen. Previous workup has included a retroperitoneal ultrasound noting unremarkable imaging. In office urinalysis results reviewed with the patient today. PVR 0ml's. Discussed at length potential causes for urinary incontinence. Discussed referral for continuation of pelvic floor therapy. At this time patient does not wish to undergo pelvic floor therapy in center and will continue to work on exercises at home. Discussed trial of dual combination therapy with 5 mg of VESIcare in addition to 25 mg of Myrbetriq daily. Discussed bladder triggers/irritants. When asked she denies denies urinary urgency, urinary frequency, incontinence, nocturia, hematuria, dysuria, foul smelling urine, changes to urinary stream, flank pain, fever, and or chills. She otherwise offers no issues or concerns at this time. [facility] Medical History History of neuropathy Chronic ankle pain Pleuritic chest pain Chronic allergic rhinitis Bronchitis History of COVID-19 Pre-op evaluation Encounter to establish care (~02/22/21) Asthma-COPD overlap syndrome COVID-19 ALISA (obstructive sleep apnea) Asthma Surgical History History of surgery on lower extremity History of back surgery History of thyroid surgery Family History Father Diabetes HTN (hypertension) Heart disease Mother Diabetes HTN (hypertension) Other Asthma Social History Household Members: None Housing: Apartment Alcohol intake: never Patient Tobacco Use Status: Former Tobacco user Tobacco use type: Cigarette Years Smoked: 8 years old e-Cigarette/Vaping Use: Never Used Second Hand Smoke Exposure: No service: No Current occupational status: disabled Current occupational exposures/hazards: No Cognitive needs: Yes (cane) Hearing needs: No Vision needs: Yes Review of Systems Const Reports no additional complaints Eyes Reports no additional complaints ENT Reports no additional complaints Card Reports no additional complaints Resp Reports as per HPI GI Details: Patient reports history of diverticulitis Reports no additional complaints Reports as per HPI Musc Reports no additional complaints Neuro Reports no additional complaints Psych Reports no additional complaints Endo Reports no additional complaints Luis Alfredo/Lymph Reports no additional complaints Aller/Immun Reports no additional complaints Physical Exam Const General: cooperative, healthy appearing, comfortable, no acute distress, well developed, alert and awake Orientation/consciousness: patient oriented x3 Limitations: no limitations HEENT Head: Yes normal to inspection, Yes normocephalic and Yes atraumatic Ears: hearing grossly normal bilaterally Eyes General: appearance normal, both eyes and all related structures Neck Neck: Yes normal visual inspection and Yes trachea midline Chest Chest palpation & inspection: normal inspection of the chest Resp Effort & Inspection: normal respiratory effort and able to speak in complete sentences Cardio Rate: regular rate GI Inspection: Yes normal to inspection General: Yes no CVA tenderness Back/Spine/Pelvis Back: no CVA tenderness Skin General skin exam: no rashes or lesions noted Neuro General: patient oriented x3 Extrem General: Yes normal to inspection Psych Appearance: grossly normal and well kempt Mental Status: mental status grossly normal Speech and movement: Normal speech and movement present and Clear speech present Affect: normal affect Attitude: cooperative Thought process: Normal thought process present Thought content: Normal thought content present Insight: Good insight present (Psych) Judgement: Good judgement present (Psych) Office Procedures Post Void Residual Post Residual Void Post Void Residual (PVR): 0 [id number]-[id number] Void Residual by ultrasound Assessment & Plan Assessment & Plan (1) Urinary incontinence: Code(s): R32 - Unspecified urinary incontinence (2) Mixed incontinence urge and stress: Code(s): N39.46 - Mixed incontinence Plan In office urinalysis results reviewed with the patient today. PVR 0 mL. Discussed dual therapy/combination therapy Continue Myrbetriq 25 mg daily. Start VESIcare 5 mg daily. Discussed bladder triggers/irritants. Discussed pelvic floor therapy. Discussed possible near future in office urodynamics for further assessment evaluation Discussed possible bladder Botox versus InterStim if symptoms persist and/or worsen. Follow-up in 6 weeks with PVR; or sooner with any issues, concerns, and or questions. Orders: Orders AMB Post Void Residual by ultrasound Today N39.46 - Mixed incontinence Medications: New solifenacin (Vesicare) 5 mg PO DAILY 30 days 30 tabs 1RF Patient Instructions: The patient had an opportunity to ask questions regarding the treatment plan. All questions were answered. Physical exam, labs, and imaging were discussed and reviewed in detail. As well as risks, benefits, and discussion of treatment choices. No major barriers to understanding were identified. The patient expressed understanding and agreement with the above treatment plan. The patient was made aware they should contact our office by phone for worsening of their current condition, the appearance of new symptoms, or with any questions or concerns. Compliance is encouraged with any medications and follow up testing that is ordered. It is a privilege to be allowed the opportunity to participate in? your urological care.? Again, if you have any questions or concerns If you have any questions or concerns please do not hesitate to contact me. The office is [phone]. This note is constructed using voice recognition software. While every effort has been made to ensure accuracy police liaison officer errors may have been included. Yours sincerely, NAHUN Storey Coding Level of Care Code Est Pt Level 4 (79657) Diagnoses Urinary incontinence R32 Mixed incontinence urge and stress N39.46 CPT Codes Post Residual Void - PVR CPT Code: 54967-Jivb Void Residual by ultrasound ([id number])
== END 2022-12-13 15:29 | disposition home or self-care (01) ==
PROVIDERS: PCP Nurse Practitioner Family; Visit Provider Nurse Practitioner Family
DX: R32 Unspecified urinary incontinence (principal)
CPT/HCPCS: 99214

== ENCOUNTER → 2022-12-13 13:43 | Outpatient (BNVA) | payer OTHER, SELFPAY | PROVIDERS: PCP Nurse Practitioner Family; Visit Provider Nurse Practitioner Family | DX: N39.46 Mixed incontinence (principal); Z79.82 Long term (current) use of aspirin; Z79.899 Other long term (current) drug therapy | CPT/HCPCS: 51798; 99212 ==

== ENCOUNTER 2022-12-15 13:32 | Outpatient (AMB) | payer OTHER, SELFPAY ==
[2022-12-15 13:35] VITALS: BP 120/62; PULSE 72; BMI 26.6
--- NOTE | 2022-12-15 13:35 | MHC.OFFVIS ---
Intake Vital Signs 12/15/22 13:35 Height 5 ft 3 in Weight 150 lb 5.684 oz BMI 26.6 BP 120/62 Blood Pressure Location Lt brachial Position Sitting Pulse 72 Pulse Source Pulse Oximeter Intake Visit Reasons: f/up mibi HS Intake Note: f/u mibi HS more Sample Display Preparer Required: Yes Sample Display Preparer Language: Dyer And Washer Name: bob seaman [id number] Allergies No Known Allergies [No Known Allergies*] Allergy (Verified 12/15/22 13:39) Medication List - Last Reconciled 12/15/22 by JOSE R Rowell albuterol sulfate 90 mcg/actuation 2 puffs inhalation Q6H PRN 30 days albuterol sulfate 2.5 mg (3 mL) inhalation Q6H PRN 30 days amlodipine 5 mg PO DAILY ascorbic acid (vitamin C) mg PO aspirin 81 mg PO DAILY blood-glucose meter (FreeStyle Lite Meter kit) test daily carvedilol 6.25 mg PO BID cholecalciferol (vitamin D3) 25 mcg PO DAILY cfzozyziesw-pbdjcvjlq-tiojktwp 200-62.5-25 mcg (Trelegy Ellipta) 1 inh inhalation DAILY 30 days ibuprofen 600 mg PO PRN [incontinence wipes As directed] levothyroxine 125 mcg PO DAILY losartan 50 mg PO DAILY metformin 500 mg PO DAILY mirabegron ER (Myrbetriq) 25 mg PO DAILY 90 days montelukast 10 mg PO BEDTIME nebulizers As directed pantoprazole 20 mg PO DAILY Saccharomyces boulardii (Daily Probiotic (S. boulardii)) 5,000 mmu cells PO DAILY sertraline 100 mg PO DAILY simvastatin 20 mg PO BEDTIME solifenacin (Vesicare) 5 mg PO DAILY 30 days [tumeric PO DAILY] HPI f/up mibi HS HPI Details Joanna is a 72-year-old female with past medical history hypertension, hyperlipidemia, diabetes, sleep apnea, who was being evaluated for chest discomfort and recently underwent a nuclear stress test and now presents for follow-up. Today she reports that her left-sided chest discomfort has improved over the last few months. She is not getting episodes like she had previously. Her episodes are nonexertional. No concerning shortness of breath, palpitations, presyncope, syncope, PND, orthopnea or edema. She is taking her meds as directed. 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 [facility] Medical History History of neuropathy Chronic ankle pain Pleuritic chest pain Chronic allergic rhinitis Bronchitis History of COVID-19 Pre-op evaluation Encounter to establish care (~02/22/21) Asthma-COPD overlap syndrome COVID-19 ALISA (obstructive sleep apnea) Asthma Surgical History History of surgery on lower extremity History of back surgery History of thyroid surgery Family History Father Diabetes HTN (hypertension) Heart disease Mother Diabetes HTN (hypertension) Other Asthma Social History Household Members: None Housing: Apartment Alcohol intake: never Patient Tobacco Use Status: Former Tobacco user Tobacco use type: Cigarette Years Smoked: 8 years old e-Cigarette/Vaping Use: Never Used Second Hand Smoke Exposure: No service: No Current occupational status: disabled Current occupational exposures/hazards: No Cognitive needs: Yes (cane) Hearing needs: No Vision needs: Yes Review of Systems Const All systems reviewed & are unremarkable except as noted in HPI and below ENT Denies dizziness Card Reports chest pain (with coughing), Reports chest pain at rest, Denies chest pain with activity, Denies rapid heart rate, Denies pedal edema, Denies edema, Denies leg edema, Denies lightheadedness, Denies palpitations, Denies dyspnea, Reports dyspnea on exertion and Denies orthopnea Resp Reports cough, Denies dyspnea and Reports dyspnea on exertion GI Denies hematochezia and Denies change in stool character Musc Denies abnormal gait, Denies limited range of motion, Denies muscle cramps, Denies muscle weakness, Denies numbness, Denies radiating pain into limb, Denies stiffness and Denies tingling Neuro Denies abnormal gait, Denies dizziness, Denies numbness and Denies tingling Endo Denies palpitations Physical Exam Vital Signs: Last Vital Signs Pulse 72 12/15/22 13:35 BP 120/62 12/15/22 13:35 BMI result Body Mass Index 26.6 Const General: cooperative, healthy appearing, comfortable and no acute distress Orientation/consciousness: patient oriented x3 Neck Neck: Yes normal visual inspection Resp Effort & Inspection: normal respiratory effort Auscultation: clear to auscultation bilaterally, no rales, no rhonchi and no wheezes Cardio Jugular venous distension: no JVD Rate: regular rate Rhythm: regular rhythm Heart sounds: S2 normal heart sound present, Murmur heart sound present (2/6 systolic murmur) and no rubs Peripheral pulses: Peripheral pulses 2+ throughout Neuro General: patient oriented x3 Extrem General: Yes normal to inspection, No no pedal edema and No calf tenderness Psych Appearance: grossly normal Mental Status: mental status grossly normal Speech and movement: Normal speech and movement present Assessment & Plan Assessment & Plan (1) Precordial chest pain: Code(s): R07.2 - Precordial pain Plan: Reports of left-sided chest discomfort occurring intermittently, nonexertional. A nuclear stress test had been done 08/2021 which was normal. Echocardiogram 09/08/2021 showed EF 55-60%, moderate left atrial dilation, moderate diastolic dysfunction and mild aortic stenosis. With her newer reports of chest discomfort she underwent a repeat nuclear stress test on 12/01/2022 showing normal myocardial perfusion imaging. Reviewed results with her. She tells me at this time that her discomfort is improving. No indication this is cardiac discomfort. Patient informed. Signs and symptoms of true angina reviewed with her. Emergency care if ever needed for symptoms. (2) Non-rheumatic aortic stenosis: Code(s): I35.0 - Nonrheumatic aortic (valve) stenosis Plan: Last echocardiogram showing mild aortic stenosis. Faint murmur noted on examination. Will plan for repeat echocardiogram in 1 year with cardiology follow-up afterwards. (3) Essential hypertension: Code(s): I10 - Essential (primary) hypertension Plan: Well controlled at this time. No med changes made. Continue amlodipine, carvedilol, losartan. (4) ALISA (obstructive sleep apnea): Code(s): G47.33 - Obstructive sleep apnea (adult) (pediatric) Orders: Orders CA echo transthoracic complete 50 Weeks I35.0 - Nonrheumatic aortic (valve) stenosis Coding Level of Care Code Est Pt Level 3 (43392) Diagnoses Precordial chest pain R07.2 Non-rheumatic aortic stenosis I35.0 Essential hypertension I10 ALISA (obstructive sleep apnea) G47.33 Time Spent (min) 22
== END 2022-12-15 14:03 | disposition home or self-care (01) ==
PROVIDERS: PCP Nurse Practitioner Family; Visit Provider Nurse Practitioner Family
DX: R07.2 Precordial pain (principal); I35.0 Nonrheumatic aortic (valve) stenosis; I10 Essential (primary) hypertension; G47.33 Obstructive sleep apnea (adult) (pediatric)
CPT/HCPCS: 99213

== ENCOUNTER → 2022-12-15 13:32 | Outpatient (BNVA) | payer OTHER, SELFPAY | PROVIDERS: PCP Nurse Practitioner Family; Visit Provider Nurse Practitioner Family | DX: I35.0 Nonrheumatic aortic (valve) stenosis (principal); I10 Essential (primary) hypertension; R07.2 Precordial pain; G47.33 Obstructive sleep apnea (adult) (pediatric) | CPT/HCPCS: 99212 ==

== ENCOUNTER 2022-12-21 13:00 | Outpatient (AMB) | payer OTHER, SELFPAY ==
[2022-12-21 13:05] VITALS: BP 126/68; PULSE 62; O2SAT 97; BMI 26.6
--- NOTE | 2022-12-21 13:05 | A.OFFVIS_ITS ---
Intake Vital Signs 12/21/22 13:05 Height 5 ft 3 in Weight 150 lb BMI 26.6 BP 126/68 Blood Pressure Location Rt brachial Position Sitting Pulse 62 Pulse Source Pulse Oximeter Pulse Oximetry (%) 97 Oxygen Delivery Method Room Air Intake Visit Reasons: Cough productive, inhalers not working Pilot Supervisor Required: No Finnish [employer]ber: Finnish [employer] offered & declined Accompanied by: Daughter Allergies No Known Allergies [No Known Allergies*] Allergy (Verified 12/21/22 13:14) Medication List - Last Reconciled 12/21/22 by Edna Puri LPN albuterol sulfate 90 mcg/actuation 2 puffs inhalation Q6H PRN 30 days albuterol sulfate 2.5 mg (3 mL) inhalation Q6H PRN amlodipine 5 mg PO DAILY ascorbic acid (vitamin C) mg PO aspirin 81 mg PO DAILY blood-glucose meter ([employer] MedicalStyle Lite Meter kit) test daily carvedilol 6.25 mg PO BID cholecalciferol (vitamin D3) 25 mcg PO DAILY tdlmyrjknvs-hpplzvtfm-kqkeugsi 200-62.5-25 mcg (Trelegy Ellipta) 1 inh inhalation DAILY 30 days ibuprofen 600 mg PO PRN [incontinence wipes As directed] levothyroxine 125 mcg PO DAILY losartan 50 mg PO DAILY metformin 500 mg PO DAILY mirabegron ER (Myrbetriq) 25 mg PO DAILY 90 days montelukast 10 mg PO BEDTIME nebulizers As directed pantoprazole 20 mg PO DAILY Saccharomyces boulardii (Daily Probiotic (S. boulardii)) 5,000 mmu cells PO DAILY sertraline 50 mg PO DAILY simvastatin 20 mg PO BEDTIME solifenacin (Vesicare) 5 mg PO DAILY 30 days [tumeric PO DAILY] HPI Cough productive, inhalers not working HPI Details Joanna is pleasant 72 year old female, former smoker, followed for asthma COPD overlap syndrome, allergic rhinitis and ALISA on CPAP therapy. At baseline, she is well controlled on Trelegy, albuterol MDI and singulair. Today she presents for an acute visit with a productive cough with thick mucous, chest tightness that started one week ago, now with dyspnea for the past two days. She has been using her albuterol MDI q 4 hours with partial relief. She denies any fevers, chills or sick contacts. [facility] Medical History History of neuropathy Chronic ankle pain Pleuritic chest pain Chronic allergic rhinitis Bronchitis History of COVID-19 Pre-op evaluation Encounter to establish care (~02/22/21) Asthma-COPD overlap syndrome COVID-19 ALISA (obstructive sleep apnea) Asthma Surgical History History of surgery on lower extremity History of back surgery History of thyroid surgery Family History Father Diabetes HTN (hypertension) Heart disease Mother Diabetes HTN (hypertension) Other Asthma Social History Household Members: None Housing: Apartment Alcohol intake: never Patient Tobacco Use Status: Former Tobacco user Tobacco use type: Cigarette Years Smoked: 8 years old e-Cigarette/Vaping Use: Never Used Second Hand Smoke Exposure: No service: No Current occupational status: disabled Current occupational exposures/hazards: No Cognitive needs: Yes (cane) Hearing needs: No Vision needs: Yes Review of Systems Const Denies chills, Denies excessive sweating, Denies fever(s), Denies headache(s) and Denies night sweats Eyes Denies dry eyes, Denies irritation and Denies itchy eyes ENT Reports Normal hearing present, Denies headache(s), Denies nasal congestion, Denies nasal discharge, Denies post nasal drip and Denies sore throat Card Denies chest pain, Denies chest pain at rest, Denies chest pain with activity, Denies claudication, Denies leg edema, Denies orthopnea and Denies paroxysmal nocturnal dyspnea Resp Denies pain on inspiration and Denies stridor Musc Denies myalgias Neuro Reports Normal hearing present and Denies headache(s) Endo Denies excessive sweating Luis Alfredo/Lymph Denies lymphadenopathy Aller/Immun Denies itchy eyes and Denies seasonal rhinorrhea Physical Exam Vital Signs: Last Vital Signs Pulse 62 12/21/22 13:05 BP 126/68 12/21/22 13:05 Pulse Ox 97 12/21/22 13:05 Oxygen Delivery Method Room Air 12/21/22 13:05 BMI result Body Mass Index 26.6 Const General: cooperative, comfortable, no acute distress, well developed and alert Orientation/consciousness: patient oriented x3 Limitations: no limitations HEENT Head: Yes normal to inspection, Yes normocephalic and Yes atraumatic Ears: hearing grossly normal bilaterally and external ears normal Eyes General: appearance normal, both eyes and all related structures Eyelids: Yes eyelids normal Sclerae: sclerae normal EOM: EOMs intact bilaterally Neck Neck: Yes normal visual inspection and Yes no lymphadenopathy Lymphatic: no lymphadenopathy noted Chest Chest palpation & inspection: normal inspection of the chest Resp Other: Poor air movement bilaterally, no wheezing. improved with duoneb Effort & Inspection: normal respiratory effort, able to speak in complete sentences, no audible wheezes, no stridor, not tachypneic, no tripod positioning and no use of accessory muscles Cardio Jugular venous distension: no JVD Rate: regular rate Rhythm: regular rhythm Skin Other: warm, dry General skin exam: no rashes or lesions noted Neuro General: patient oriented x3 Cranial nerves: Yes Normal hearing present Cognition (Neuro): normal cognition Gait exam (Neuro): Normal gait present Extrem General: Yes normal to inspection, Yes capillary refill normal, Yes no clubbing, cyanosis or edema and Yes no pedal edema Psych Appearance: grossly normal and well kempt Speech and movement: Normal speech and movement present and Clear speech present Affect: normal affect Attitude: cooperative Thought process: Normal thought process present Thought content: Normal thought content present Insight: Good insight present (Psych) Judgement: Good judgement present (Psych) Office Procedures Nebulizer Treatment Nebulizer Treatment [id number]/MDI RX initial, or Nebulizer Subsequent Treatment Office Meds ipratropium 0.5 mg-albuterol 3 mg (2.5 mg base)/3 mL nebulization soln Performing Provider: Liliana Irene NP Performing Location: [facility] Administered by: Edna Puri LPN on 12/21/22 13:33 Dose Route Admin Location Dispensed Lot Number Expiration Date [facility] Wire Rope Sling Maker 3 mL inhalation 3 mL [id number] 04/19/24 8602-5284-23 [employer]PHRON DONALD Assessment & Plan Assessment & Plan (1) Asthma-COPD overlap syndrome: Code(s): J44.9 - Chronic obstructive pulmonary disease, unspecified (2) ALISA (obstructive sleep apnea): Code(s): G47.33 - Obstructive sleep apnea (adult) (pediatric) (3) Chronic allergic rhinitis: Code(s): J30.9 - Allergic rhinitis, unspecified Plan Will treat bronchitic symptoms with doxycycline and obtain CXR, given pleuritic chest pain. Patient aware if symptoms worsen to seek emergent care. Advised to continue Trelegy and use nebulizer Q6-8 hours PRN, will also send in duoneb. All questions were answered and patient is in agreement of plan. Will follow up for her regularly scheduled appointment with Dr. Ayala or sooner if needed. Orders: Orders AMB Nebulizer Treatment Today J44.9 - Chronic obstructive pulmonary disease, unspecified XR chest 2V Today R07.81 - Pleurodynia Medications: New doxycycline hyclate 100 mg PO BID 20 caps 0RF ipratropium-albuterol 0.5 mg-3 mg(2.5 mg base)/3 mL 3 mL inhalation Q6H PRN 90 mL 0RF wheezing Coding Level of Care Code Est Pt Level 4 (70857) Diagnoses Asthma-COPD overlap syndrome J44.9 ALISA (obstructive sleep apnea) G47.33 Chronic allergic rhinitis J30.9 CPT Codes Nebulizer Treatment - Nebulizer Treatment, initial or subsequent: 19108- Nebulizer/MDI RX initial, or Nebulizer Subsequent Treatment ([id number])
== END 2022-12-21 13:49 | disposition home or self-care (01) ==
LOC: HO.HPSW 13:00
PROVIDERS: PCP Nurse Practitioner Family; Visit Provider Nurse Practitioner Family
DX: J44.9 Chronic obstructive pulmonary disease, unspecified (principal); G47.33 Obstructive sleep apnea (adult) (pediatric); J30.9 Allergic rhinitis, unspecified
CPT/HCPCS: 99214

== ENCOUNTER → 2022-12-21 13:00 | Outpatient (BNVA) | payer OTHER, SELFPAY | PROVIDERS: PCP Nurse Practitioner Family; Visit Provider Nurse Practitioner Family | DX: J44.9 Chronic obstructive pulmonary disease, unspecified (principal); J30.9 Allergic rhinitis, unspecified; G47.33 Obstructive sleep apnea (adult) (pediatric); Z79.899 Other long term (current) drug therapy | CPT/HCPCS: 94640; 99212 ==

== ENCOUNTER 2022-12-22 15:06 | Outpatient (REF) | payer OTHER, SELFPAY ==
--- NOTE | ~2022-12-22 | XR_ITS ---
EXAMINATION: XR CHEST CLINICAL INFORMATION: Pleurodynia COMPARISON: Previous chest x-ray most recent February 2022 TECHNIQUE: 2 views of the chest were obtained. FINDINGS: The cardiac and mediastinal contours are stable. The thoracic aorta is calcified but normal in caliber. The lungs are clear. No pleural effusion or pneumothorax. There are degenerative changes of the thoracic spine. No rib fracture seen. Surgical clips in the lower midline neck from probable thyroidectomy. XR/XR chest 2V IMPRESSION: No evidence for acute disease in the chest.
== END 2022-12-22 15:07 | disposition home or self-care (01) ==
LOC: HO.XRAY 15:06
PROVIDERS: PCP Nurse Practitioner Family; Visit Provider Nurse Practitioner Family
DX: R07.81 Pleurodynia (principal)
CPT/HCPCS: 71046

== ENCOUNTER 2022-12-29 13:43 | Outpatient (AMB) | payer OTHER, SELFPAY ==
--- NOTE | 2022-12-29 13:45 | MHC.OFFVIS ---
Intake Intake Visit Reasons: med review Intake Note: Patient is present for tele visit follow up incontinence/medication review Urology Medications: myrbetriq, solifenacin Blood Thinner: aspirin Cash Management Officer Required: Yes Cash Management Officer Name: JACEY PERSON Accompanied by: Self / Same As Patient Allergies No Known Allergies [No Known Allergies*] Allergy (Verified 12/29/22 13:52) Medication List - Last Reconciled 12/29/22 by EVE Storey- albuterol sulfate 90 mcg/actuation 2 puffs inhalation Q6H PRN 30 days albuterol sulfate 2.5 mg (3 mL) inhalation Q6H PRN amlodipine 5 mg PO DAILY ascorbic acid (vitamin C) mg PO aspirin 81 mg PO DAILY blood-glucose meter (FreeStyle Lite Meter kit) test daily carvedilol 6.25 mg PO BID cholecalciferol (vitamin D3) 25 mcg PO DAILY doxycycline hyclate 100 mg PO BID nipjumjmrxo-bwmbrajfn-todkyrgr 200-62.5-25 mcg (Trelegy Ellipta) 1 inh inhalation DAILY 30 days ibuprofen 600 mg PO PRN [incontinence wipes As directed] ipratropium-albuterol 0.5 mg-3 mg(2.5 mg base)/3 mL 3 mL inhalation Q6H PRN levothyroxine 125 mcg PO DAILY losartan 50 mg PO DAILY metformin 500 mg PO DAILY mirabegron ER (Myrbetriq) 25 mg PO DAILY 90 days montelukast 10 mg PO BEDTIME nebulizers As directed pantoprazole 20 mg PO DAILY Saccharomyces boulardii (Daily Probiotic (S. boulardii)) 5,000 mmu cells PO DAILY sertraline 50 mg PO DAILY simvastatin 20 mg PO BEDTIME solifenacin (Vesicare) 5 mg PO DAILY 30 days [tumeric PO DAILY] HPI HPI Comments History of Present Illness Details Joanna is a pleasant 72-year-old Armenian speaking female patient of Dr. Mitchell. She has a past medical history of neuropathy, allergies, asthma, and obstructive sleep apnea. She has a past medical history of chronic allergic rhinitis, bronchitis, asthma, and obstructive sleep apnea. She is being follow-up on today via telehealth for her lower urinary tract symptoms (urinary frequency, urinary urgency and episodes of incontinence if not near a bathroom). Telehealth appointment was made today due to clarification of medications. During last office visit patient had reported some improvement with Myrbetriq 25 mg daily however felt urinary symptoms could be better at which time recommendations were made for additional 5 mg of VESIcare daily. However, patient discusses today feeling Myrbetriq was not helpful and is feeling VESIcare is causing her constipation. Discussed at length potential side effects of overactive bladder medications. Discussed and stressed pelvic floor therapy. Previous workup has included a retroperitoneal ultrasound noting unremarkable imaging of kidneys and bladder. Discussed bladder triggers/irritants. She otherwise offers no issues or concerns at this time. [facility] Medical History History of neuropathy Chronic ankle pain Pleuritic chest pain Chronic allergic rhinitis Bronchitis History of COVID-19 Pre-op evaluation Encounter to establish care (~02/22/21) Asthma-COPD overlap syndrome COVID-19 ALISA (obstructive sleep apnea) Asthma Surgical History History of surgery on lower extremity History of back surgery History of thyroid surgery Family History Father Diabetes HTN (hypertension) Heart disease Mother Diabetes HTN (hypertension) Other Asthma Social History Household Members: None Housing: Apartment Alcohol intake: never Patient Tobacco Use Status: Former Tobacco user Tobacco use type: Cigarette Years Smoked: 8 years old e-Cigarette/Vaping Use: Never Used Second Hand Smoke Exposure: No service: No Current occupational status: disabled Current occupational exposures/hazards: No Cognitive needs: Yes (cane) Hearing needs: No Vision needs: Yes Review of Systems Const Reports no additional complaints Eyes Reports no additional complaints ENT Reports no additional complaints Card Reports as per HPI Resp Reports as per HPI GI Details: Patient reports history of diverticulitis Reports no additional complaints Reports as per HPI Musc Reports as per HPI Neuro Reports as per HPI Psych Reports no additional complaints Endo Reports no additional complaints Luis Alfredo/Lymph Reports no additional complaints Aller/Immun Reports no additional complaints Physical Exam Const General: cooperative, healthy appearing, comfortable, no acute distress, well developed, alert and awake Orientation/consciousness: patient oriented x3 Limitations: no limitations HEENT Head: Yes normal to inspection, Yes normocephalic and Yes atraumatic Ears: hearing grossly normal bilaterally Eyes General: appearance normal, both eyes and all related structures Neck Neck: Yes normal visual inspection and Yes trachea midline Chest Chest palpation & inspection: normal inspection of the chest Resp Effort & Inspection: normal respiratory effort and able to speak in complete sentences Cardio Rate: regular rate GI Inspection: Yes normal to inspection General: Yes no CVA tenderness Back/Spine/Pelvis Back: no CVA tenderness Skin General skin exam: no rashes or lesions noted Neuro General: patient oriented x3 Extrem General: Yes normal to inspection Psych Appearance: grossly normal and well kempt Mental Status: mental status grossly normal Speech and movement: Normal speech and movement present and Clear speech present Affect: normal affect Attitude: cooperative Thought process: Normal thought process present Thought content: Normal thought content present Insight: Good insight present (Psych) Judgement: Good judgement present (Psych) Assessment & Plan Assessment & Plan (1) Urinary incontinence: Code(s): R32 - Unspecified urinary incontinence (2) Lower urinary tract symptoms: Code(s): R39.9 - Unspecified symptoms and signs involving the genitourinary system (3) Mixed incontinence urge and stress: Code(s): N39.46 - Mixed incontinence Plan Stop Myrbetriq as discussed Stop VESIcare as discussed Start Toviaz 4 mg daily as discussed and prescribed. Discussed pelvic floor therapy Discussed bladder triggers/irritants. Will schedule for urodynamics for further assessment evaluation Discussed possible bladder Botox versus InterStim of systems are cyst and or worsen Keep scheduled follow-up for assessment of PVR and efficacy of Toviaz. Medications: New fesoterodine ER (Toviaz) 4 mg PO DAILY 30 tabs 1RF 30 days N39.41 - Urge incontinence Discontinued mirabegron ER (Myrbetriq) Discontinued Reason: Doctor's Order 25 mg PO DAILY 90 days 90 tabs 1RF N32.81 - Overactive bladder, R35.1 - Nocturia solifenacin (Vesicare) Discontinued Reason: Doctor's Order 5 mg PO DAILY 30 days 30 tabs 1RF Patient Instructions: The patient had an opportunity to ask questions regarding the treatment plan. All questions were answered. Physical exam, labs, and imaging were discussed and reviewed in detail. As well as risks, benefits, and discussion of treatment choices. No major barriers to understanding were identified. The patient expressed understanding and agreement with the above treatment plan. The patient was made aware they should contact our office by phone for worsening of their current condition, the appearance of new symptoms, or with any questions or concerns. Compliance is encouraged with any medications and follow up testing that is ordered. It is a privilege to be allowed the opportunity to participate in? your urological care.? Again, if you have any questions or concerns If you have any questions or concerns please do not hesitate to contact me. The office is [phone]. This note is constructed using voice recognition software. While every effort has been made to ensure accuracy cna hospice errors may have been included. Yours sincerely, NAHUN Storey Telehealth Telehealth Location of provider rendering services: practice address Location of patient: address on file Patient Identification confirmed using: Name, : Yes Telehealth method: voice only Patient verbally consented to treatment: Yes Patient verbally consented to billing insurance company: Yes Patient informed of any privacy concerns related to visit: Yes Minutes spent on Phone/Video with Pt.: 20 Coding Level of Care Code Tele Est Pt Level 4 (25482) Diagnoses Urinary incontinence R32 Lower urinary tract symptoms R39.9 Mixed incontinence urge and stress N39.46
== END 2022-12-29 14:57 | disposition home or self-care (01) ==
LOC: HO.HUSH 13:43
PROVIDERS: PCP Nurse Practitioner Family; Visit Provider Nurse Practitioner Family
DX: R39.9 Unspecified symptoms and signs involving the genitourinary system (principal); N39.46 Mixed incontinence
CPT/HCPCS: 99442

== ENCOUNTER → 2022-12-29 13:43 | Outpatient (BNVA) | payer OTHER, SELFPAY | PROVIDERS: PCP Nurse Practitioner Family; Visit Provider Nurse Practitioner Family ==

== ENCOUNTER 2023-01-05 14:00 | Outpatient (RCR) | payer OTHER, SELFPAY ==
--- NOTE | 2022-11-29 12:28 | MHC.PT.EP ---
[facility] [place] [facility] [place] [facility] [place] [facility] [address] [place] [phone] F: [phone] F: [phone] F: [phone] F: [phone] Physical Therapy Plan of Care Date of Evaluation: 11/29/22 Date of Surgery: Diagnosis: pain in unspecified ankle and joints of unspecified foot other chronic pain personal hx of other disease of the nervous system and sense organs chronic ankle pain Assessment: 72 y/o female referred to PT with R chronic ankle pain. Of note, PMH significant for R tibia ORIF, R bunionectomy, and B foot neuropathy. Currently her R dorsal foot pain that radiates up lateral leg results in pain and difficulty with walking, standing, and stairs secondary to decreased R foot/ankle ROM, decreased R LE strength, hallux valgus/rigidis, and impaired gait pattern. Recommend PT 2x/week for 5 weeks (pt would like to come 1x/week) to address impairments, implement HEP, and optimize functional mobility. Frequency and Duration: The patient will be seen 1x/week for 5 weeks Short Term Goals: 3 weeks Compliant with HEP Pt will demonstrate R anlke dorsiflexion to 10* to faciliate stairs Stapler Machine Goals: 5 weeks I with HEP Pt will report decrease in pain by 50% with walking (IR pain ranges 10-12) Pt will improve R LE strength to 4/5 to facilaite walking Treatment Plan: Modalities to reduce pain, spasms and effusion. Manual therapy to restore motion and function. Therapeutic exercise to improve strength and flexibility. Neuromuscular re-education for posture and balance. Therapeutic activities to return to functional activities of daily living. Electronically signed by: Carol Davila PT Please sign and return to therapist. Thank you for your referral.
--- NOTE | 2023-01-10 13:55 | MHC.PT.DC ---
[facility] [place] Office [place] Office [place] Office [address] [facility] [phone] F: [phone] F: [phone] F: [phone] F: [phone] Physical Therapy Discharge Report Diagnosis: pain in unspecified ankle and joints of unspecified foot other chronic pain personal hx of other disease of the nervous system and sense organs chronic ankle pain Date of Surgery: Date of Evaluation: 11/29/22 Date of Discharge: 01/05/23 Treatments to Date: 6 Cancellations to Date: 0 No Shows to Date: 0 Discharge Status: Improved Function Independent with HEP Discharge Summary: She has made good progress with improved tolerance for standing and walking. She reports compliance with HEP and feels ready for d/c. Electronically signed by: Carol Davila PT Please sign and return to therapist. Thank you for your referral.
== END 2023-01-10 13:55 | disposition home or self-care (01) ==
LOC: HO.PT 14:00
PROVIDERS: PCP Nurse Practitioner Family; Visit Provider Physical Medicine & Rehabilitation
DX: M25.571 Pain in right ankle and joints of right foot (principal); G89.29 Other chronic pain; Z86.69 Personal history of other diseases of the nervous system and sense organs
CPT/HCPCS: 97110; 97162; 97530

== ENCOUNTER 2023-01-10 13:21 | Outpatient (AMB) | payer OTHER, SELFPAY ==
[2023-01-10 13:44] VITALS: BP 128/74; PULSE 66; O2SAT 97; BMI 26.6
--- NOTE | 2023-01-10 13:44 | MHC.OFFVIS ---
Intake Vital Signs 01/10/23 13:44 Height 5 ft 3 in Weight 150 lb 2 oz BMI 26.6 BP 128/74 Blood Pressure Location Lt brachial Position Sitting Pulse 66 Pulse Source Pulse Oximeter Pulse Oximetry (%) 97 Oxygen Delivery Method Room Air Intake Visit Reasons: 6m f/u forgetfullness - LVM Intake Note: Pt presents to the office today for a 6 month follow up for forgetfullness. Pt is accompanied by her Daughter Alyssa. Pts daughter states she is becoming more forgetful. Pts daughter states that she will start one project like cleaning her bedroom and not finish that task before starting something else. Pt states she also has been experiencing vertigo that started about 1 week ago. Allergies No Known Allergies [No Known Allergies*] Allergy (Verified 01/10/23 13:48) Medication List - Last Reconciled 01/10/23 by EVE Murry albuterol sulfate 90 mcg/actuation 2 puffs inhalation Q6H PRN 30 days albuterol sulfate 2.5 mg (3 mL) inhalation Q6H PRN amlodipine 5 mg PO DAILY ascorbic acid (vitamin C) mg PO aspirin 81 mg PO DAILY blood-glucose meter (FreeStyle Lite Meter kit) test daily carvedilol 6.25 mg PO BID cholecalciferol (vitamin D3) 25 mcg PO DAILY fesoterodine ER (Toviaz) 4 mg PO DAILY 30 days kvzpbccvvse-mbhdfbgjt-xllyikcw 200-62.5-25 mcg (Trelegy Ellipta) 1 inh inhalation DAILY 30 days ibuprofen 600 mg PO PRN [incontinence wipes As directed] ipratropium-albuterol 0.5 mg-3 mg(2.5 mg base)/3 mL 3 mL inhalation Q6H PRN levothyroxine 125 mcg PO DAILY losartan 50 mg PO DAILY metformin 500 mg PO DAILY montelukast 10 mg PO BEDTIME nebulizers As directed pantoprazole 20 mg PO DAILY prednisone 20 mg (2 x 10 mg) PO DAILY 5 days Saccharomyces boulardii (Daily Probiotic (S. boulardii)) 5,000 mmu cells PO DAILY sertraline 50 mg PO DAILY simvastatin 20 mg PO BEDTIME [tumeric PO DAILY] HPI HPI Comments History of Present Illness Details 72-yr-old female presents for f/u visit. Pt reports she recently was dx'd w/ asthma exacerbation- she is now feeling better. She continues to have forgetfulness. She starts something then moves onto something else w/o finishing it or that she was doing it in the 1st place. She is not leaving the stove on. No wandering. She is trying to walk. CARLOS- negative. She has not heard from neuro-psych office. [facility] Medical History History of neuropathy Chronic ankle pain Pleuritic chest pain Chronic allergic rhinitis Bronchitis History of COVID-19 Pre-op evaluation Encounter to establish care (~02/22/21) Asthma-COPD overlap syndrome COVID-19 ALISA (obstructive sleep apnea) Asthma Surgical History History of surgery on lower extremity History of back surgery History of thyroid surgery Family History Father Diabetes HTN (hypertension) Heart disease Mother Diabetes HTN (hypertension) Other Asthma Household Members: None Housing: Apartment Alcohol intake: never Patient Tobacco Use Status: Former Tobacco user Tobacco use type: Cigarette Years Smoked: 8 years old e-Cigarette/Vaping Use: Never Used Second Hand Smoke Exposure: No service: No Current occupational status: disabled Current occupational exposures/hazards: No Cognitive needs: Yes (cane) Hearing needs: No Vision needs: Yes Review of Systems Const All systems reviewed & are unremarkable except as noted in HPI and below Physical Exam Vital Signs: Last Vital Signs Pulse 66 01/10/23 13:44 BP 128/74 01/10/23 13:44 Pulse Ox 97 01/10/23 13:44 Oxygen Delivery Method Room Air 01/10/23 13:44 BMI result Body Mass Index 26.6 Const General: cooperative and no acute distress Orientation/consciousness: patient oriented x3 HEENT Head: Yes normocephalic Resp Effort & Inspection: normal respiratory effort and able to speak in complete sentences Neuro General: patient oriented x3, gait normal and CN's II-XI intact bilaterally Cognition (Neuro): normal cognition Motor exam (neuro): 5/5 motor strength present throughout Psych Appearance: grossly normal Mental Status: mental status grossly normal Speech and movement: Normal speech and movement present Affect: normal affect Attitude: cooperative Thought process: Normal thought process present Thought content: Normal thought content present Insight: Good insight present (Psych) Judgement: Good judgement present (Psych) Assessment & Plan Assessment & Plan (1) Cognitive dysfunction: Code(s): F09 - Unspecified mental disorder due to known physiological condition (2) Forgetfulness: Code(s): R68.89 - Other general symptoms and signs (3) ALISA (obstructive sleep apnea): Code(s): G47.33 - Obstructive sleep apnea (adult) (pediatric) Plan Reviewed labs- NL- CALROS/MMA/homocysteine- normal Start Namenda XR 7mg qd. Stressed importance of regular physical activity, social activity, and cognitive stimulating activities. Neuro-eval order previously rec'd by [facility]- will f/u on status. Future considerations- EEG. Consider in-lab PAP titration for ALISA f/u in 4 months or sooner prn. Medications: New memantine 7 mg PO DAILY 30 days 30 ea 3RF Coding Level of Care Code Est Pt Level 4 (87120) Diagnoses Cognitive dysfunction F09 Forgetfulness R68.89 ALISA (obstructive sleep apnea) G47.33
== END 2023-01-10 14:30 | disposition home or self-care (01) ==
PROVIDERS: Visit Provider Nurse Practitioner Family
DX: R41.89 Other symptoms and signs involving cognitive functions and awareness (principal); G47.33 Obstructive sleep apnea (adult) (pediatric)
CPT/HCPCS: 99214

== ENCOUNTER → 2023-01-10 13:21 | Outpatient (BNVA) | payer OTHER, SELFPAY | PROVIDERS: Visit Provider Nurse Practitioner Family | DX: F09 Unspecified mental disorder due to known physiological condition (principal); R68.89 Other general symptoms and signs; G47.33 Obstructive sleep apnea (adult) (pediatric) | CPT/HCPCS: 99212 ==

== ENCOUNTER 2023-01-20 09:12 | Outpatient (REF) | payer OTHER, SELFPAY ==
[2023-01-20 10:48] LABS: Estimated Average Glucose 126 mg/dL
[2023-01-20 11:10] LABS: Alanine Aminotransferase 19 U/L (0-31); Albumin Level 4.2 g/dL (3.5-5.0); Alkaline Phosphatase 120 U/L (39-117); Anion Gap 13 (12-20); Aspartate Amino Transferase 23 U/L (5-31); Bilirubin Total 0.4 mg/dL (0.0-1.0); Blood Urea Nitrogen 15 mg/dL (9-16); Calcium 9.7 mg/dL (8.4-10.2); Carbon Dioxide 26 mmol/L (22-29); Chloride 108 mmol/L (96-108); Cholesterol 182 mg/dL (<200); Estimated Glomerular Filt Rate > 60; Glucose Fasting 110 mg/dL (60-99); Glucose Random 110 mg/dL (60-115); HDL Cholesterol 56 mg/dL (>40); LDL Cholesterol Calculated 105 mg/dL (<100); Potassium 3.7 mmol/L (3.3-5.1); Sodium 143 mmol/L (135-145); Total Protein 7.8 g/dL (6.5-8.0); Triglycerides 105 mg/dL (<150)
[2023-01-20 11:24] LABS: TSH reflex Free T4 4.49 uIU/mL (0.32-4.0)
[2023-01-20 11:33] LABS: Folate 12.3 ng/mL (> or = 4.0); Vitamin B12 1266 pg/mL (200-900)
[2023-01-20 11:58] LABS: Free T4 (Free Thyroxine) 1.11 ng/dL (0.71-1.85)
== END 2023-01-20 09:13 | disposition home or self-care (01) ==
LOC: HO.LAB 09:12
PROVIDERS: Visit Provider Nurse Practitioner Family
DX: M79.604 Pain in right leg (principal); E78.5 Hyperlipidemia, unspecified; E03.9 Hypothyroidism, unspecified; E11.9 Type 2 diabetes mellitus without complications
CPT/HCPCS: 36415; 80053; 80061; 82607; 82746; 83036; 84439; 84443

== ENCOUNTER 2023-01-24 09:01 | Outpatient (AMB) | payer OTHER, SELFPAY ==
[2023-01-24 09:03] VITALS: BP 124/52; PULSE 68; O2SAT 97; BMI 26.8
--- NOTE | 2023-01-24 09:03 | MHC.PC.OV ---
Vital Signs 01/24/23 09:03 Height 5 ft 3 in Weight 151 lb 2 oz BMI 26.8 BP 124/52 L Blood Pressure Location Lt brachial Position Sitting Pulse 68 Pulse Source Pulse Oximeter Pulse Oximetry (%) 97 Oxygen Delivery Method Room Air Intake Visit Reasons: 3M follow up Silica Filter Operator Required: No Senior Systems Developer: Present Accompanied by: Daughter Allergies regadenoson [From Lexiscan] Adverse Reaction (Intermediate, Verified 01/24/23 09:07) Chest Pain Tobacco use date assessed: 10/07/22 Fall risk assessment: No Falls in past year Last assessed Fall Risk: 01/24/23 Dental Screening Dental Screen Date: 01/24/23 Did you have a dental visit in the last 12 months?: No Did you have a dental problem in the last 6 months where you did not have access to dental care?: No Was dental information given to patient?: Patient has dentist HPI HPI Comments History of Present Illness Details Patient is a 72-year-old female who presents today for routine follow-up.? Medical history significant for precordial chest pain-followed by Cardiology, hyperlipidemia, hypothyroidism, diabetes type 2, GERD, mixed incontinence urge and stress-followed by [facility], cognitive dysfunction - followed by [facility], hypertension, ALISA - on CPAP, and asthma-COPD overlap syndrome - followed by [facility].?Patient is compliant with medications. Patient reports she has had 4 episodes of stool incontinence. Denies any acute back injury or fall. Patient reports it primarily when she eats the food from the [employer] program and it makes her have to go to the bathroom rapidly. Patient advised to modify her diet and keep log of when this is occurring. To see if it is food related. Patient also reports right shoulder pain x1 month with right shoulder prominence which she reports as increasing in size over the last month. Patient reports pain with range of motion with abduction. [facility] Medical History History of neuropathy Chronic ankle pain Pleuritic chest pain Chronic allergic rhinitis Bronchitis History of COVID-19 Pre-op evaluation Encounter to establish care (~02/22/21) Asthma-COPD overlap syndrome COVID-19 ALISA (obstructive sleep apnea) Asthma Surgical History History of surgery on lower extremity History of back surgery History of thyroid surgery Family History Father Diabetes HTN (hypertension) Heart disease Mother Diabetes HTN (hypertension) Other Asthma Social History Household Members: None Housing: Apartment Alcohol intake: never Patient Tobacco Use Status: Former Tobacco user Tobacco use type: Cigarette Years Smoked: 8 years old e-Cigarette/Vaping Use: Never Used Second Hand Smoke Exposure: No service: No Current occupational status: disabled Current occupational exposures/hazards: No Cognitive needs: Yes (cane) Hearing needs: No Vision needs: Yes Questionnaire Thrive Questionnaire Date Thrive assessed: 04/08/22 ROSS-7 AMB Questionnaire ROSS-7 Date ROSS - 7 assessed: 04/08/22 Source: Developed by Drs. Moncho Pacheco, Ade Soto, Bill Goldman and colleagues, with an educational lisa from [employer]. Review of Systems Const Denies chills, Denies fatigue, Denies fever(s) and Denies poor appetite Eyes Denies no additional complaints ENT Reports Normal hearing present Card Denies chest pain, Denies syncope, Denies rapid heart rate and Denies dyspnea Resp Denies cough and Denies dyspnea GI Denies change in stool character, Denies constipation, Denies diarrhea, Denies nausea and Denies vomiting Denies urinary frequency, Denies dysuria and Denies urinary urgency Musc Reports arthralgias (right shoulder pain ) Neuro Reports Normal hearing present, Denies confusion and Denies syncope Psych Denies confusion Endo Denies fatigue Physical exam (Primary Care) Vital Signs: Last Vital Signs Pulse 68 01/24/23 09:03 BP 124/52 L 01/24/23 09:03 Pulse Ox 97 01/24/23 09:03 Oxygen Delivery Method Room Air 01/24/23 09:03 BMI result Body Mass Index 26.8 Tobacco/Smoking Status: Tobacco use Status Tobacco use date assessed 10/07/22 01/24/23 09:10 Patient Tobacco Use Status Former Tobacco user 01/24/23 09:10 Tobacco use type Cigarette 01/24/23 09:10 e-Cigarette/Vaping Use Never Used 01/24/23 09:10 Thrive Assessment: Date of Thrive Assessment Date Thrive assessed 04/08/22 01/24/23 09:10 Const General: No confusion Orientation/consciousness: No confusion HENMT Head: Yes normocephalic and Yes atraumatic Eyes Conjunctivae: conjunctivae normal Chest Chest palpation & inspection: normal inspection of the chest Resp Effort & Inspection: normal respiratory effort Auscultation: clear to auscultation bilaterally, no crackles, no rhonchi and no wheezes Cardio Rate: regular rate Rhythm: regular rhythm Heart sounds: S1 normal heart sound present and S2 normal heart sound present GI Inspection: Yes normal to inspection Neuro General: No confusion Cranial nerves: Yes Normal hearing present Extrem General: No edema Right upper extremity: normal capillary refill and shoulder/upper arm Details: abnormal to inspection Details: clavicle deformity (mike prominence noted to clavicle ), tenderness and abnormal ROM Details: pain with active ROM Details: in ABduction and pain with passive ROM Details: with ABduction; no ecchymosis, no crepitus and no unusual warmth Left upper extremity: normal to inspection and full ROM Office Procedures Flu Questionnaire Does the patient have a severe egg allergy?: No Does the patient have severe life threatening allergies?: No Does the patient have a fever or illness today?: No Has the patient ever had Guillain-Mentor Syndrome?: No Has the patient ever had any past reaction to a flu shot?: No Immunizations flu vacc [id number] 6mos up(PF) 60 mcg(15 mcgx4)/0.5 mL IM syringe Performing Provider: EVE King Performing Location: [facility] Administered by: SUHAS Cabrales on 01/24/23 09:18 Dose Route Admin Location Dispensed Lot Number Expiration Date NDC Newspaper Press Operator Apprentice 0.5 mL IM Left Deltoid 0.5 mL [id number] 08/20/23 35791-698-64 [employer] Systems VIS Given Date VIS Provided VIS Publication Date 01/24/23 Single Vaccine 20 Eligibility Eligibility Date Funding Source Not [facility] Eligible 01/24/23 Private Assessment and Plan Assessment & Plan (1) Elevated TSH: Code(s): R79.89 - Other specified abnormal findings of blood chemistry Plan: Repeat labs in 6 weeks. (2) Right shoulder pain: Code(s): M25.511 - Pain in right shoulder Plan: Right clavicle right shoulder x-ray ordered to further evaluate. Can take uxrl-xcg-pjsiojr Tylenol or ibuprofen as needed for pain. (3) Lower urinary tract symptoms: Code(s): R39.9 - Unspecified symptoms and signs involving the genitourinary system Plan: Continue follow urology. (4) Cognitive dysfunction: Code(s): F09 - Unspecified mental disorder due to known physiological condition Plan: Continue to follow in Neurology. Continue on memantine 7mg daily (5) Asthma-COPD overlap syndrome: Code(s): J44.9 - Chronic obstructive pulmonary disease, unspecified Plan: Continue CPAP for greater than 4 hours a night with good effect. Plan Follow-up in 3 months Orders: Orders Influenza [id number] Immunization Today Z23 - Encounter for immunization XR shoulder RT min 2V Today M25.511 - Pain in right shoulder TSH reflex Free T4 6 Weeks R79.89 - Other specified abnormal findings of blood chemistry XR clavicle RT Today M25.511 - Pain in right shoulder Coding Level of Care Code Est Pt Level 4 (58093) Diagnoses Elevated TSH R79.89 Right shoulder pain M25.511 Lower urinary tract symptoms R39.9 Cognitive dysfunction F09 Asthma-COPD overlap syndrome J44.9
== END 2023-01-24 09:49 | disposition home or self-care (01) ==
PROVIDERS: PCP Nurse Practitioner Family; Visit Provider Nurse Practitioner Family
DX: Z23 Encounter for immunization (principal)
CPT/HCPCS: 90471; 90686; 99214

== ENCOUNTER 2023-01-24 10:05 | Outpatient (REF) | payer OTHER, SELFPAY ==
--- NOTE | ~2023-01-24 | XR_ITS ---
EXAMINATION: XR CLAVICLE, RIGHT CLINICAL INFORMATION: Shoulder pain COMPARISON: None available. TECHNIQUE: Two views of the right clavicle. FINDINGS: There are degenerative and hypertrophic changes of the right acromioclavicular joint with osteophyte formation. No fracture or bone lesion is evident. 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
--- NOTE | ~2023-01-24 | XR_ITS ---
EXAMINATION: XR SHOULDER, RIGHT CLINICAL INFORMATION: Right shoulder pain. COMPARISON: None available. TECHNIQUE: AP external rotation, Grashey, scapular Y, and axillary views of the right shoulder. FINDINGS: RIGHT SHOULDER: Marked degenerative changes are present in the shoulder, AC joint greater than glenohumeral joint. There is mild anterior subluxation of the shoulder associated with probable rotator cuff tear. No acute fractures are seen. XR/XR shoulder RT min 2V IMPRESSION: Marked degenerative changes in the right shoulder with mild anterior subluxation. Probable rotator cuff tear.
--- NOTE | ~2023-01-24 | XR_ITS ---
EXAMINATION: XR SHOULDER, LEFT CLINICAL INFORMATION: Right shoulder pain. COMPARISON: None available. TECHNIQUE: Single AP view of the left shoulder. This was obtained in error. FINDINGS: There is some mottled heterogeneity in the left humeral head. No fractures or discrete bony destructive lesions are seen. Degenerative changes are seen at the AC joint. XR/XR shoulder LT 1V IMPRESSION: Some mottled heterogeneity in the left humeral head. This could be secondary to osteopenia. Degenerative changes at the AC joint.
== END 2023-01-24 10:06 | disposition home or self-care (01) ==
LOC: HO.XRAY 10:05
PROVIDERS: Visit Provider Nurse Practitioner Family
DX: M25.511 Pain in right shoulder (principal)
CPT/HCPCS: 73000; 73020; 73030

== ENCOUNTER 2023-02-03 10:05 | Outpatient (AMB) | payer OTHER, SELFPAY ==
--- NOTE | 2023-02-03 10:10 | MHC.OFFVIS ---
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 Apparently she was diagnosed with sleep apnea about a year ago. She has underlying cardiovascular risk factor with high blood pressure and diabetes. She did use the CPAP is very hard for her to get used to it. She would have episodes which she will wake up short of breath. Therefore after multiple times including decreasing the pressure is she return the CPAP. She continues to have daytime drowsiness and also has an elevated Finley score of 10/24. She also has a history of asthma. She had been on Advair before in this was switched over to Wixela and has not had any significant improvement in breathing. At this time will try to optimize respiratory therapy. Will likely made her respiratory status worse with such was diagnosed with COVID-19 infection and subsequently COVID-19 pneumonia about a month or 2 ago. She did require multiple courses of antibiotics initially prednisone. She still has shortness of breath with activity. Mild in severity. Also has a nonproductive cough that is improved. 03/07/2022 the patient is here for pulmonary follow-up visit. She is not recovering after having flu-like symptoms and worsening respiratory symptoms. He has been having increasing chest tightness and wheezing. Moderate severity. She was supposed to be on Trelegy but she has been getting the wrong inhaler to the pharmacy. A resend the prescription to the pharmacy. Will make sure that she is on the right medication. In the meantime I will request that she undergo a chest x-ray and also blood work to assess for any potential triggers that may be exacerbating her obstructive airway disease. Because of her breathing she had a hard time tolerating her CPAP. But now that she is feeling better her cough is a little better after having been sick see starting to go back to using it regularly. 06/13/2022 the patient is here for a pulmonary follow-up visit. The patient now is recovering after having COVID. Her major issue right now is her memory. She seems to not be able to remember things as well after COVID. She recently had an MRI and is currently being worked up for that. In the meantime she is still struggling with her CPAP. She does not use it regularly. I did download the data and she has used it only a few times. When she does use it however seems like the CPAP pressures are too low. She does want to go higher this times is is hard for her to tolerate however. Therefore she is going to continue with CPAP of 8 cm and will reassess her usage and also heart response to therapy. I did request she can bring it in to the next visit so we can also adjusted for her. In addition to this, the patient having some a per the sciatic chest discomfort. Primarily her side. Waxing waning. Pleuritic in nature. At this point she does not have it. I did recommend that if it happens again she can always come in for chest x-ray. She has also been noticing some wheezing. Although she has not been taking the Trelegy regularly. She needs to take a Trelegy regularly and also uses Singulair. Her wheezing may just be a transition into the spring. We can also consider on the chin on antihistamine therapy. However, like to try to avoid polypharmacy at this time. If the patient has worsening she is to call the office for further recommendations. 09/23/2022 patient is here for pulmonary follow-up visit. The patient has recovered well after having COVID. She is back to using her respiratory therapy as prescribed. The patient also has been using her CPAP. The CPAP therapy continues to be effective in beneficial. She does use it for more than 4 hours a night. Now however, now she is having some issues with back discomfort send reticular and neuropathic discomfort. This is affecting her sleep as it is hurting her she goes to bed. He is keeping her up and is affecting her sleep quality. We did talk about potentially treating her with gabapentin. The patient states that she had been on this before and she tolerated it well. Therefore will go ahead and start her on 300 mg at nighttime to help with her sleep and also with discomfort that is affecting her sleep. Hopefully with this she will continue using the CPAP more effectively. She continues use her respiratory medicines. She does not required her short-acting beta agonists at this time. 02/03/2023 the patient is here for a pulmonary follow-up visit. Since her last spoke the patient did have her nuclear Lexiscan. When she was getting the injection she did develop significant back pain and chest pain. It was moderate to severe. Her symptoms did subside. Likely just an adverse reaction to the medicine. Respiratory gonsalves she is doing well now. She she does continue with current therapy. The patient has been using her CPAP. The CPAP therapy continues to be affecting beneficial. If she did get a prescription for gabapentin but she stopped using it because it was causing her to have as significant appetite at nighttime and she does not want he gained any weight. Although now she is taking Zoloft and this seems to be helping her sleep as well. A she does complaint of a cough and also postnasal drip. Will go ahead and prescribe her Dymista with the hope of helping her with a upper respiratory complaints. His I also gave her prescription for Tessalon Perles that she can use as needed for her cough. Although it may not be covered. I did provide her with good Rx card that she can use at the local pharmacy. He [facility] Medical History History of neuropathy Chronic ankle pain Pleuritic chest pain Chronic allergic rhinitis Bronchitis History of COVID-19 Pre-op evaluation Encounter to establish care (~02/22/21) Asthma-COPD overlap syndrome COVID-19 ALISA (obstructive sleep apnea) Asthma Surgical History History of surgery on lower extremity History of back surgery History of thyroid surgery Family History Father Diabetes HTN (hypertension) Heart disease Mother Diabetes HTN (hypertension) Other Asthma Social History Household Members: None Housing: Apartment Alcohol intake: never Patient Tobacco Use Status: Former Tobacco user Tobacco use type: Cigarette Years Smoked: 8 years old e-Cigarette/Vaping Use: Never Used Second Hand Smoke Exposure: No service: No Current occupational status: disabled Current occupational exposures/hazards: No Cognitive needs: Yes (cane) Hearing needs: No Vision needs: Yes Review of Systems Const Denies body aches, Denies chills, Reports difficulty sleeping, Denies fever(s) and Denies headache(s) Eyes Denies change in vision ENT Denies dizziness, Denies otalgia, Denies headache(s), Denies nasal discharge, Denies sinus pain and Denies sore throat Card Denies chest pain, Denies edema, Denies lightheadedness and Denies dyspnea Resp Reports cough, Denies hemoptysis and Denies dyspnea Denies hematuria, Denies dysuria, Denies flank pain and Reports urinary incontinence Musc Reports back pain Skin/Breast Reports as per HPI and Denies rash Neuro Reports burning sensations, Denies dizziness, Denies headache(s), Reports memory loss, Reports radicular pain and Reports paresthesias Psych Reports memory loss Physical Exam Vital Signs: Last Vital Signs Pulse 64 02/03/23 10:11 BP 120/60 02/03/23 10:11 Pulse Ox 96 02/03/23 10:11 Oxygen Delivery Method Room Air 02/03/23 10:11 BMI result Body Mass Index 26.9 Const General: alert Orientation/consciousness: patient oriented x3 Neck Neck: Yes normal visual inspection, Yes full ROM and Yes no lymphadenopathy Chest Chest palpation & inspection: normal inspection of the chest Resp Effort & Inspection: normal respiratory effort Auscultation: no rales, no rhonchi, no wheezes and diminished lung sounds Cardio Jugular venous distension: no JVD Rate: regular rate Rhythm: regular rhythm and other (ectopy) Heart sounds: S1 normal heart sound present and S2 normal heart sound present Peripheral pulses: Peripheral pulses 2+ throughout GI Inspection: Yes normal to inspection Palpation (GI): Soft to palpation and nontender Auscultation: normal bowel sounds Skin General skin exam: rashes and/or lesions noted Neuro General: patient oriented x3 Extrem Other: Trace edema around right lateral malleolus General: Yes normal to inspection Psych Appearance: grossly normal Mental Status: mental status grossly normal Speech and movement: Normal speech and movement present Assessment & Plan Assessment & Plan (1) Asthma-COPD overlap syndrome: Code(s): J44.9 - Chronic obstructive pulmonary disease, unspecified (2) ALISA (obstructive sleep apnea): Code(s): G47.33 - Obstructive sleep apnea (adult) (pediatric) (3) Chronic allergic rhinitis: Code(s): J30.9 - Allergic rhinitis, unspecified Plan continue CPAP from 8cm. likely needs higher pressure continue Trelegy cont singular JEANNINE as needed stopped Gabapentin start Dymista BID Tessalon pearls as needed Follow-up in 6 months Medications: New azelastine-fluticasone 137-50 mcg/spray (Dymista) administer into each nostril 1 spray intranasal BID 23 grams 6RF benzonatate 200 mg PO BID 30 days PRN 30 caps 6RF cough benzonatate 200 mg PO BID 30 days PRN 30 caps 6RF cough Coding Level of Care Code Est Pt Level 4 (95204) Diagnoses Asthma-COPD overlap syndrome J44.9 ALISA (obstructive sleep apnea) G47.33 Chronic allergic rhinitis J30.9 Time Spent (min) 17
[2023-02-03 10:11] VITALS: BP 120/60; PULSE 64; O2SAT 96; BMI 26.9
== END 2023-02-03 10:31 | disposition home or self-care (01) ==
PROVIDERS: PCP Nurse Practitioner Family; Visit Provider Hospitalist
DX: J44.9 Chronic obstructive pulmonary disease, unspecified (principal); G47.33 Obstructive sleep apnea (adult) (pediatric); J30.9 Allergic rhinitis, unspecified
CPT/HCPCS: 99214

== ENCOUNTER → 2023-02-03 10:05 | Outpatient (BNVA) | payer OTHER, SELFPAY | PROVIDERS: PCP Nurse Practitioner Family; Visit Provider Hospitalist | DX: J44.9 Chronic obstructive pulmonary disease, unspecified (principal); G47.33 Obstructive sleep apnea (adult) (pediatric); J30.9 Allergic rhinitis, unspecified | CPT/HCPCS: 99212 ==

== ENCOUNTER 2023-03-31 13:57 | Outpatient (AMB) | payer OTHER, SELFPAY ==
[2023-03-31 14:05] VITALS: PULSE 51; O2SAT 98; BMI 26.9
--- NOTE | 2023-03-31 14:05 | A.OFFVIS_ITS ---
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 Apparently she was diagnosed with sleep apnea about a year ago. She has underlying cardiovascular risk factor with high blood pressure and diabetes. She did use the CPAP is very hard for her to get used to it. She would have episodes which she will wake up short of breath. Therefore after multiple times including decreasing the pressure is she return the CPAP. She continues to have daytime drowsiness and also has an elevated [place] score of 10/24. She also has a history of asthma. She had been on Advair before in this was switched over to Wixela and has not had any signif icant improvement in breathing. At this time will try to optimize respiratory therapy. Will likely made her respiratory status worse with such was diagnosed with COVID-19 infection and subsequently COVID-19 pneumonia about a month or 2 ago. She did require multiple courses of antibiotics initially prednisone. She still has shortness of breath with activity. Mild in severity. Also has a nonproductive cough that is improved. 03/07/2022 the patient is here for pulmon roseline follow-up visit. She is not recovering after having flu-like symptoms and worsening respiratory symptoms. He has been having increasing chest tightness and wheezing. Moderate severity. She was supposed to be on Trelegy but she has been getting the wrong inhaler to the pharmacy. A resend the prescription to the pharmacy. Will make sure that she is on the right medication. In the meantime I will request that she undergo a chest x-ray and also blood work to assess for any potential triggers that may be exacerbating her obstructive airway disease. Because of her breathing she had a hard time tolerating her CPAP. But now that she is feeling better her cough is a little better after having been sick see starting to go back to using it regularly. 06/13/2022 the patient is here for a pulm onary follow-up visit. The patient now is recovering after having COVID. Her major issue right now is her memory. She seems to not be able to remember things as well after COVID. She recently had an MRI and is currently being worked up for that. In the meantime she is still struggling with her CPAP. She does not use it regularly. I did download the data and she has used it only a few times. When she does use it however seems like the CPAP pressures are too low. She does want to go higher this times is is hard for her to tolerate however. Therefore she is going to continue with CPAP of 8 cm and will reassess her usage and also heart response to therapy. I did request she can bring it in to the next visit so we can also adjusted for her. In addition to this, the patient having some a per the sciatic chest discomfort. Primarily her side. Waxing waning. Pleuritic in nature. At this point she does not have it. I did recommend that if it happens again she can always come in for chest x-ray. She has also been noticing some wheezing. Although she has not been taking the Trelegy regularly. She needs to take a Trelegy regularly and also uses Singulair. Her wheezing may just be a transition into the spring. We can also consider on the chin on antihistamine therapy. However, like to try to avoid polypharmacy at this time. If the patient has worsening she is to call the office for further recommendations. 09/23/2022 patient is here for pulmonary follow-up visit. The patient has rec overed well after having COVID. She is back to using her respiratory therapy as prescribed. The patient also has been using her CPAP. The CPAP therapy continues to be effective in beneficial. She does use it for more than 4 hours a night. Now however, now she is having some issues with back discomfort send reticular and neuropathic discomfort. This is affecting her sleep as it is hurting her she goes to bed. He is keeping her up and is affecting her sleep quality. We did talk about potentially treating her with gabapentin. The patient states that she had been on this before and she tolerated it well. Therefore will go ahead and start her on 300 mg at nighttime to help with her sleep and also with discomfort that is affecting her sleep. Hopefully with this she will continue using the CPAP more effectively. She continues use her respiratory medicines. She does not required her short-acting beta agonists at this time. 02/03/2023 the patient is here for a pul monary follow-up visit. Since her last spoke the patient did have her nuclear Lexiscan. When she was getting the injection she did develop significant back pain and chest pain. It was moderate to severe. Her symptoms did subside. Likely just an adverse reaction to the medicine. Respiratory gonsalves she is doing well now. She she does continue with current therapy. The patient has been using her CPAP. The CPAP therapy continues to be affecting beneficial. If she did get a prescription for gabapentin but she stopped using it because it was causing her to have as significant appetite at nighttime and she does not want he gained any weight. Although now she is taking Zoloft and this seems to be helping her sleep as well. A she does complaint of a cough and also postnasal drip. Will go ahead and prescribe her Dymista with the hope of helping her with a upper respiratory complaints. His I also gave her prescription for Tessalon Perles that she can use as needed for her cough. Although it may not be covered. I did provide her with good Rx card that she can use at the local pharmacy. 03/31/2023 the patient is here for a pulmonary follow-up visit. The patient is complaining still of a cough. Still complains of nonproductive cough which is moderate severity. Does bother her. The patient has tried [id number] medications without any relief. We did try saline Dymista to the pharmacy but was not cover. She has currently not using any nasal sprays. In addition to that she has not using the CPAP regularly. Patient will monitor closely for any worsening daytime drowsiness. She will continue to try positional therapy. If she develops worsening daytime drowsiness or increased cardiovascular risk factors then repeating sleep study may be helpful. The Trelegy inhaler has been helping her asthma. She continued to use it daily. She has not required her rescue inhaler or nebulizer. Also to note, her last chest x-ray was back in December 2022 and was without any acute disease. [facility] Medical History History of neuropathy Chronic ankle pain Pleuritic chest pain Chronic allergic rhinitis Bronchitis History of COVID-19 Pre-op evaluation Encounter to establish care (~02/22/21) Asthma-COPD overlap syndrome COVID-19 ALISA (obstructive sleep apnea) Asthma Surgical History History of surgery on lower extremity History of back surgery History of thyroid surgery Family History Father Diabetes HTN (hypertension) Heart disease Mother Diabetes HTN (hypertension) Other Asthma Social History Household Members: None Housing: Apartment Alcohol intake: never Patient Tobacco Use Status: Former Tobacco user Tobacco use type: Cigarette Years Smoked: 8 years old e-Cigarette/Vaping Use: Never Used Second Hand Smoke Exposure: No service: No Current occupational status: disabled Current occupational exposures/hazards: No Cognitive needs: Yes (cane) Hearing needs: No Vision needs: Yes Review of Systems Const Denies body aches, Denies chills, Reports difficulty sleeping, Denies fever(s) and Denies headache(s) Eyes Denies change in vision ENT Denies dizziness, Denies otalgia, Denies headache(s), Denies nasal discharge, Denies sinus pain and Denies sore throat Card Denies chest pain, Denies edema, Denies lightheadedness and Denies dyspnea Resp Reports cough, Denies hemoptysis and Denies dyspnea Denies hematuria, Denies dysuria, Denies flank pain and Reports urinary incontinence Musc Reports back pain Skin/Breast Reports as per HPI and Denies rash Neuro Reports burning sensations, Denies dizziness, Denies headache(s), Reports memory loss, Reports radicular pain and Reports paresthesias Psych Reports memory loss Physical Exam Vital Signs: Last Vital Signs Pulse 51 03/31/23 14:05 Pulse Ox 98 03/31/23 14:05 Oxygen Delivery Method Room Air 03/31/23 14:05 BMI result Body Mass Index 26.9 Const General: alert Orientation/consciousness: patient oriented x3 Neck Neck: Yes normal visual inspection, Yes full ROM and Yes no lymphadenopathy Chest Chest palpation & inspection: normal inspection of the chest Resp Effort & Inspection: normal respiratory effort Auscultation: no rales, no rhonchi, no wheezes and diminished lung sounds Cardio Jugular venous distension: no JVD Rate: regular rate Rhythm: regular rhythm and other (ectopy) Heart sounds: S1 normal heart sound present and S2 normal heart sound present Peripheral pulses: Peripheral pulses 2+ throughout GI Inspection: Yes normal to inspection Palpation (GI): Soft to palpation and nontender Auscultation: normal bowel sounds Skin General skin exam: rashes and/or lesions noted Neuro General: patient oriented x3 Extrem Other: Trace edema around right lateral malleolus General: Yes normal to inspection Psych Appearance: grossly normal Mental Status: mental status grossly normal Speech and movement: Normal speech and movement present Results Reviewed Results Reviewed: [address] [address] XRay Report Signed Patient: Joanna Marks MR#: [id number] : 1950 Acct:[id number] Age/Sex: 72 / F ADM Date: 12/22/22 Loc: [facility] Attending Dr: Liliana Irene NP Ordering Physician: Liliana Irene NP Date of Service: 12/22/22 Procedure(s): XR chest 2V Accession Number(s): [id number] cc: Shahida Mitchell HOG CUTTER; Liliana Irene NP~ EXAMINATION: XR CHEST CLINICAL INFORMATION: Pleurodynia COMPARISON: Previous chest x-ray most recent February 2022 TECHNIQUE: 2 views of the chest were obtained. FINDINGS: The cardiac and mediastinal contours are stable. The thoracic aorta is calcified but normal in caliber. The lungs are clear. No pleural effusion or pneumothorax. There are degenerative changes of the thoracic spine. No rib fracture seen. Surgical clips in the lower midline neck from probable thyroidectomy. XR/XR chest 2V IMPRESSION: No evidence for acute disease in the chest. Dictated By: Clara Melchor MD Signed By: <Electronically signed by Clara Melchor MD in OV> 12/23/22 0931 DD/ 1531 TD/TT: [employer] Insulation Supervisor: DANNY Assessment & Plan Assessment & Plan (1) Asthma-COPD overlap syndrome: Code(s): J44.9 - Chronic obstructive pulmonary disease, unspecified (2) ALISA (obstructive sleep apnea): Code(s): G47.33 - Obstructive sleep apnea (adult) (pediatric) (3) Chronic allergic rhinitis: Code(s): J30.9 - Allergic rhinitis, unspecified Plan continue CPAP continue Trelegy cont singular JEANNINE as needed stopped Gabapentin start Astelin start Fluticasone Tessalon pearls as needed Follow-up in 6 months Medications: New azelastine administer into each nostril 2 sprays intranasal BID 30 days 30 mL 6RF fluticasone propionate 50 mcg/actuation 2 sprays intranasal DAILY 30 days 15.8 mL 11RF J31.0 - Chronic rhinitis Coding Level of Care Code Est Pt Level 4 (39465) Diagnoses Asthma-COPD overlap syndrome J44.9 ALISA (obstructive sleep apnea) G47.33 Chronic allergic rhinitis J30.9 Time Spent (min) 17
== END 2023-03-31 14:23 | disposition home or self-care (01) ==
PROVIDERS: PCP Nurse Practitioner Family; Visit Provider Hospitalist
DX: J44.9 Chronic obstructive pulmonary disease, unspecified (principal); G47.33 Obstructive sleep apnea (adult) (pediatric); J30.9 Allergic rhinitis, unspecified
CPT/HCPCS: 99214

== ENCOUNTER → 2023-03-31 13:57 | Outpatient (BNVA) | payer OTHER, SELFPAY | PROVIDERS: PCP Nurse Practitioner Family; Visit Provider Hospitalist | DX: G47.33 Obstructive sleep apnea (adult) (pediatric) (principal); J44.9 Chronic obstructive pulmonary disease, unspecified; J30.9 Allergic rhinitis, unspecified | CPT/HCPCS: 99212 ==

== ENCOUNTER 2023-04-05 11:28 | Outpatient (REF) | payer OTHER, SELFPAY | END 2023-04-05 11:29 | disposition home or self-care (01) | LOC: HO.MAMMO 11:28 | PROVIDERS: Visit Provider Nurse Practitioner Family | DX: Z12.31 Encounter for screening mammogram for malignant neoplasm of breast (principal) | CPT/HCPCS: 77063; 77067 ==

== ENCOUNTER → 2023-04-05 11:30 | Outpatient (BNV) | payer OTHER, SELFPAY | PROVIDERS: Visit Provider Radiology Diagnostic Radiology | DX: Z12.31 Encounter for screening mammogram for malignant neoplasm of breast (principal) | CPT/HCPCS: 77063; 77067 ==

== ENCOUNTER 2023-04-24 13:05 | Outpatient (REF) | payer OTHER, SELFPAY ==
[2023-04-24 14:42] LABS: TSH reflex Free T4 1.29 uIU/mL (0.32-4.0)
== END 2023-04-24 13:06 | disposition home or self-care (01) ==
LOC: HO.LAB 13:05
PROVIDERS: Visit Provider Nurse Practitioner Family
DX: R79.89 Other specified abnormal findings of blood chemistry (principal)
CPT/HCPCS: 36415; 84443

== ENCOUNTER 2023-04-26 14:18 | Outpatient (AMB) | payer OTHER, SELFPAY ==
--- NOTE | 2023-04-26 14:22 | A.OFFPC_ITS ---
Vital Signs 04/26/23 14:26 Height 5 ft 3 in Weight 156 lb 2 oz BMI 27.7 BP 100/62 Blood Pressure Location Lt brachial Position Sitting Pulse 70 Pulse Source Pulse Oximeter Pulse Oximetry (%) 96 Oxygen Delivery Method Room Air Intake Visit Reasons: 3 month f/u Intake Note: Patient is here to follow up on GERD, DM, Hyperlipidemia, HTN. Attenuator Required: Yes Attenuator Language: Head Refrigeration Engineer Name: Carlee ([id number]) Information Interpreted: non-clinical & clinical Final Inspector: Not Required per policy Accompanied by: Self / Same As Patient Allergies regadenoson [From Lexiscan] Adverse Reaction (Intermediate, Verified 04/28/23 06:33) Chest Pain Medication List - Last Reconciled 04/28/23 by Edu Agee MD albuterol sulfate 90 mcg/actuation 2 puffs inhalation Q6H PRN 30 days albuterol sulfate 2.5 mg (3 mL) inhalation Q6H PRN amlodipine 5 mg PO DAILY ascorbic acid (vitamin C) mg PO aspirin 81 mg PO DAILY azelastine 2 sprays intranasal BID 30 days azelastine-fluticasone 137-50 mcg/spray (Dymista) 1 spray intranasal BID benzonatate 200 mg PO BID PRN 30 days blood-glucose meter (FreeStyle Lite Meter kit) test daily carvedilol 6.25 mg PO BID cholecalciferol (vitamin D3) 25 mcg PO DAILY [DIABETIC SHOES As directed] fluticasone propionate 50 mcg/actuation 2 sprays intranasal DAILY 30 days qovnvvlkvxx-xodlfrbmz-wgkboqzf 200-62.5-25 mcg (Trelegy Ellipta) 1 inh inhalation DAILY 30 days ibuprofen 600 mg PO PRN [incontinence wipes As directed] ipratropium-albuterol 0.5 mg-3 mg(2.5 mg base)/3 mL 3 mL inhalation Q6H PRN levothyroxine 125 mcg PO DAILY losartan 50 mg PO DAILY memantine 7 mg PO DAILY 30 days metformin 500 mg PO DAILY montelukast 10 mg PO BEDTIME nebulizers As directed pantoprazole 20 mg PO DAILY Saccharomyces boulardii (Daily Probiotic (S. boulardii)) 5,000 mmu cells PO DAILY sertraline 50 mg PO DAILY simvastatin 20 mg PO BEDTIME [tumeric PO DAILY] Tobacco use date assessed: 04/26/23 Fall risk assessment: No Falls in past year Last assessed Fall Risk: 04/26/23 Dental Screening Dental Screen Date: 04/26/23 Did you have a dental visit in the last 12 months?: Yes Did you have a dental problem in the last 6 months where you did not have access to dental care?: No Was dental information given to patient?: Patient has dentist HPI 3 month f/u HPI Details 73-year-old female presents to the [facility] to discuss her medical condition. I will be assuming her care he as her current primary care provider has left the practice. Patient is complaining of pain in the left hand and spasms in the fingers. She reports that her finger gets stuck when she is trying to bend it. She feels a few painful nodules on the hand. Also complaining of pain in the right shoulder. She has difficulty lifting the arm over the shoulder level. Compliant with other medications. Able to function and do all activities of daily living. [facility] Medical History (Updated 04/28/23 @ 06:47 by Edu Agee MD) Non-rheumatic aortic stenosis History of neuropathy Chronic ankle pain Pleuritic chest pain Chronic allergic rhinitis History of COVID-19 Pre-op evaluation Encounter to establish care (~02/22/21) Asthma-COPD overlap syndrome COVID-19 ALISA (obstructive sleep apnea) Asthma Surgical History History of surgery on lower extremity History of back surgery History of thyroid surgery Family History Father Diabetes HTN (hypertension) Heart disease Mother Diabetes HTN (hypertension) Other Asthma Social History Household Members: None Housing: Apartment Alcohol intake: never Patient Tobacco Use Status: Former Tobacco user Tobacco use type: Cigarette Years Smoked: 8 years old e-Cigarette/Vaping Use: Never Used Second Hand Smoke Exposure: No service: No Current occupational status: disabled Current occupational exposures/hazards: No Cognitive needs: Yes (cane) Hearing needs: No Vision needs: Yes Questionnaire PHQ-9 Over the last 2 weeks, how often have you been bothered by any of the following problems? 1. Little interest or pleasure in doing things: not at all 2. Feeling down, depressed, or hopeless: not at all 3. Trouble falling or staying asleep, or sleeping too much: not at all 4. Feeling tired or having little energy: not at all 5. Poor appetite or overeating: not at all 6. Feeling bad about yourself - or that you are a failure or have let yourself or your family down: not at all 7. Trouble concentrating on things, such as reading the newspaper or watching television: not at all 8. Moving or speaking so slowly that other people could have noticed. Or the opposite - being so fidgety or restless that you have been moving around a lot more than usual: not at all 9. Thoughts that you would be better off or of hurting yourself in some way: not at all Total score: 0 Depression Screening Interpretation: Negative Depression Screening Done: Yes Source: Developed by Drs. Moncho Pacheco, Ade Soto, Bill Goldman and colleagues, with an educational lisa from [employer]. Thrive Questionnaire Date Thrive assessed: 04/26/23 I am a: Patient What is your living situation today?: I have a steady place to live Within the past 12 months, did the food you bought not last and you didn't have the money to get more?: Never true Within the past 12 months, did you worry whether your food would run out before you got money to buy more?: Never true Do you have trouble paying for medicines?: No Do you have trouble getting transportation to medical appointments?: No Do you have trouble paying your heating and electricity bill?: No Do you have trouble taking care of your child, family member or friend?: No Do you have trouble with day-to-day activities such as bathing, preparing meals, shopping, managing finances, etc.?: No Are you currently unemployed and looking for a job?: No Are you interested in more education?: No Currently or been in a relationship where the following occur: no concerns reported THRIVE Score: 0 AUDIT C Alcohol Use Questionnaire (AUDIT-C) 1. How often do you have a drink containing alcohol?: Never Total Score: 0 ROSS-7 AMB Questionnaire ROSS-7 Date ROSS - 7 assessed: 04/26/23 Feeling nervous, anxious, or on edge: 1 = Several days Not being able to stop or control worryin = Not at all Worrying too much about different things: 0 = Not at all Trouble relaxin = Not at all Being so restless that it is hard to sit still: 0 = Not at all Becoming easily annoyed or irritable: 1 = Several days Feeling afraid as if something awful might happen: 0 = Not at all Total ROSS-7 score (0-4 normal; 5-9 mild; 10-14 moderate; 15-21 severe): 2 Source: Developed by Drs. Moncho Pacheco, Ade Soto, Bill Goldman and colleagues, with an educational lisa from [employer]. Physical exam (Primary Care) Vital Signs: Last Vital Signs Pulse 70 04/26/23 14:26 BP 100/62 04/26/23 14:26 Pulse Ox 96 04/26/23 14:26 Oxygen Delivery Method Room Air 04/26/23 14:26 Care Plan Goal for BP management: Blood pressure is stable. BMI result Body Mass Index 27.7 Tobacco/Smoking Status: Tobacco use Status Tobacco use date assessed 04/26/23 04/26/23 14:35 Patient Tobacco Use Status Former Tobacco user 04/26/23 14:24 Tobacco use type Cigarette 04/26/23 14:24 e-Cigarette/Vaping Use Never Used 04/26/23 14:24 PHQ-9: PHQ-9 Score PHQ-9: Total score 0 04/26/23 14:38 Depression Screening Interpretation: Negative Thrive Assessment: Date of Thrive Assessment Date Thrive assessed 04/26/23 04/26/23 14:24 Currently or been in a relationship where the following occur: no concerns reported Const General: cooperative and healthy appearing Nutritional Appearance: well nourished Orientation/consciousness: patient oriented x3 Limitations: no limitations HENMT Head: Yes normal to inspection Eyes General: appearance normal, both eyes and all related structures Neck Neck: Yes normal visual inspection Chest Chest palpation & inspection: normal palpation of entire chest wall Resp Effort & Inspection: normal respiratory effort Neuro General: patient oriented x3 Extrem Other: Right shoulder: No visible bruise. Crepitus on motion. Abduction up to 90 degrees. Left hand: Nodules palpable along the tendon in the palm. Fourth digit trigger finger. Results AMB Hemoglobin A1c AMB Hemoglobin A1c 6.5 % Last Edit by SUHAS Brown on 04/26/23 14:59 Results Reviewed Results Reviewed: Laboratory Last Values Hgb A1c (Clinic) 6.5 % (4.0-6.0) H 04/26/23 14:25 Assessment and Plan Assessment & Plan (1) Non-rheumatic aortic stenosis: Code(s): I35.0 - Nonrheumatic aortic (valve) stenosis Plan: Condition is stable. (2) Degenerative joint disease of acromioclavicular joint: Code(s): M19.019 - Primary osteoarthritis, unspecified shoulder Plan: X-ray ordered. Will call with the results. (3) DM type 2 (diabetes mellitus, type 2): Code(s): E11.9 - Type 2 diabetes mellitus without complications Plan: A1c is 6.5. Currently on no medications. Patient was advised diet and exercise . (4) Essential hypertension: Code(s): I10 - Essential (primary) hypertension Plan: Blood pressure is in range. Continue current medications. (5) Asthma-COPD overlap syndrome: Code(s): J44.9 - Chronic obstructive pulmonary disease, unspecified Orders: Orders AMB Hemoglobin A1c 04/26/23 E11.9 - Type 2 diabetes mellitus without complicati ons XR shoulder RT min 2V 04/26/23 S43.401A - Unspecified sprain of right shoulder joint, initial encounter Referrals Orthopedics Referral M65.30 - Trigger finger, unspecified finger Medications: Refilled memantine 7 mg PO DAILY 30 days 30 ea 3RF Coding Level of Care Code Est Pt Level 4 (41216) Diagnoses Non-rheumatic aortic stenosis I35.0 Degenerative joint disease of acromioclavicular joint M19.019 DM type 2 (diabetes mellitus, type 2) E11.9 Essential hypertension I10 Asthma-COPD overlap syndrome J44.9
[2023-04-26 14:26] VITALS: BP 100/62; PULSE 70; O2SAT 96; BMI 27.7
== END 2023-04-26 14:51 | disposition home or self-care (01) ==
PROVIDERS: PCP Nurse Practitioner Family; Visit Provider Internal Medicine
DX: E11.9 Type 2 diabetes mellitus without complications (principal)
CPT/HCPCS: 83036; 99214

== ENCOUNTER 2023-05-15 14:32 | Outpatient (AMB) | payer OTHER, SELFPAY ==
--- NOTE | 2023-05-15 14:34 | MHC.OFFVIS ---
Intake Vital Signs 05/15/23 14:40 Height 5 ft 3 in Weight 158 lb 2 oz BMI 28.0 BP 116/72 Blood Pressure Location Lt brachial Position Sitting Respiration 16 Pulse 72 Pulse Source Pulse Oximeter Pulse Oximetry (%) 98 Oxygen Delivery Method Room Air Intake Visit Reasons: 4 mo f/u -Forgetfullness-CONF Intake Note: Pt presents for a 4 month follow up for memory issues. Correctional Medicine Physician Required: No Allergies regadenoson [From [facility]] Adverse Reaction (Intermediate, Verified 05/15/23 14:35) Chest Pain Medication List - Last Reconciled 05/15/23 by EVE Murry albuterol sulfate 90 mcg/actuation 2 puffs inhalation Q6H PRN 30 days albuterol sulfate 2.5 mg (3 mL) inhalation Q6H PRN amlodipine 5 mg PO DAILY ascorbic acid (vitamin C) mg PO aspirin 81 mg PO DAILY azelastine 2 sprays intranasal BID 30 days azelastine-fluticasone 137-50 mcg/spray (Dymista) 1 spray intranasal BID benzonatate 200 mg PO BID PRN 30 days blood-glucose meter (FreeStyle Lite Meter kit) test daily carvedilol 6.25 mg PO BID cholecalciferol (vitamin D3) 25 mcg PO DAILY [DIABETIC SHOES As directed] fluticasone propionate 50 mcg/actuation 2 sprays intranasal DAILY 30 days avzdfkeehmq-uvdhowimo-mpvpjrpn 200-62.5-25 mcg (Trelegy Ellipta) 1 inh inhalation DAILY 30 days ibuprofen 600 mg PO PRN [incontinence wipes As directed] ipratropium-albuterol 0.5 mg-3 mg(2.5 mg base)/3 mL 3 mL inhalation Q6H PRN levothyroxine 125 mcg PO DAILY losartan 50 mg PO DAILY memantine 7 mg PO DAILY 30 days metformin 500 mg PO DAILY montelukast 10 mg PO BEDTIME nebulizers As directed pantoprazole 20 mg PO DAILY Saccharomyces boulardii (Daily Probiotic (S. boulardii)) 5,000 mmu cells PO DAILY sertraline 50 mg PO DAILY simvastatin 20 mg PO BEDTIME [tumeric PO DAILY] HPI HPI Comments History of Present Illness Details 73-yr-old female presents for f/u visit, accompanied by her family. Pt denies any significant interval medical changes. Pt reports she feels the Namenda 7mg has helped her memory some. She is now having more good days, but still has some bad days. She may forget where she put something or what she was about to do. She states she is eating well. She is able to do some cooking. She is sleeping well. Takes almost daily walks. Tolerating Namenda well. Neuro-psych eval was not done- her insurance was not in-network / [facility] Medical History (Updated 04/28/23 @ 06:47 by Edu Agee MD) Non-rheumatic aortic stenosis History of neuropathy Chronic ankle pain Pleuritic chest pain Chronic allergic rhinitis History of COVID-19 Pre-op evaluation Encounter to establish care (~02/22/21) Asthma-COPD overlap syndrome COVID-19 ALISA (obstructive sleep apnea) Asthma Surgical History History of surgery on lower extremity History of back surgery History of thyroid surgery Family History Father Diabetes HTN (hypertension) Heart disease Mother Diabetes HTN (hypertension) Other Asthma Social History Household Members: None Housing: Apartment Alcohol intake: never Patient Tobacco Use Status: Former Tobacco user Tobacco use type: Cigarette Years Smoked: 10 years e-Cigarette/Vaping Use: Never Used Second Hand Smoke Exposure: No service: No Current occupational status: disabled Current occupational exposures/hazards: No Cognitive needs: Yes (cane) Hearing needs: No Vision needs: Yes Physical Exam Vital Signs: Last Vital Signs Pulse 72 05/15/23 14:40 Resp 16 05/15/23 14:40 BP 116/72 05/15/23 14:40 Pulse Ox 98 05/15/23 14:40 Oxygen Delivery Method Room Air 05/15/23 14:40 BMI result Body Mass Index 28.0 Const General: cooperative and no acute distress Orientation/consciousness: patient oriented x3 Resp Effort & Inspection: normal respiratory effort and able to speak in complete sentences Neuro General: patient oriented x3 Cranial nerves: Yes CN's II-XII intact bilaterally Cognition (Neuro): normal cognition Psych Appearance: grossly normal Mental Status: mental status grossly normal Speech and movement: Normal speech and movement present Affect: normal affect Attitude: cooperative Assessment & Plan Assessment & Plan (1) Cognitive dysfunction: Code(s): F09 - Unspecified mental disorder due to known physiological condition (2) ALISA (obstructive sleep apnea): Code(s): G47.33 - Obstructive sleep apnea (adult) (pediatric) Plan Increase Namenda XR from 7mg qd to 14mg qd x's 30 days, then 21mg qd x's 30 days, then 28mg qd. Continue regular physical activity, social activity, and cognitive stimulating activities. Will request Neuro-psych eval. Future considerations- EEG. Consider in-lab PAP titration for ALISA f/u in 4-6 months or sooner prn. Medications: New memantine then stop and increase to 21mg qd 14 mg PO DAILY 30 days 30 ea 0RF memantine then stop and increase to 28mg qd 21 mg PO DAILY 30 days 30 ea 0RF memantine 28 mg PO DAILY 30 days 30 ea 6RF Discontinued memantine Discontinued Reason: Doctor's Order 7 mg PO DAILY 30 days 30 ea 3RF Coding Level of Care Code Est Pt Level 4 (54153) Diagnoses Cognitive dysfunction F09 ALISA (obstructive sleep apnea) G47.33
[2023-05-15 14:40] VITALS: BP 116/72; PULSE 72; RESP 16; O2SAT 98; BMI 28.0
== END 2023-05-15 15:29 | disposition home or self-care (01) ==
PROVIDERS: PCP Nurse Practitioner Family; Visit Provider Nurse Practitioner Family
DX: R41.89 Other symptoms and signs involving cognitive functions and awareness (principal); G47.33 Obstructive sleep apnea (adult) (pediatric)
CPT/HCPCS: 99214

== ENCOUNTER → 2023-05-15 14:32 | Outpatient (BNVA) | payer OTHER, SELFPAY | PROVIDERS: PCP Nurse Practitioner Family; Visit Provider Nurse Practitioner Family | DX: F09 Unspecified mental disorder due to known physiological condition (principal); G47.33 Obstructive sleep apnea (adult) (pediatric) | CPT/HCPCS: 99212 ==

== ENCOUNTER 2023-05-26 13:40 | Outpatient (REF) | payer OTHER, SELFPAY ==
--- NOTE | ~2023-05-26 | XR_ITS ---
EXAMINATION: XR SHOULDER, RIGHT CLINICAL INFORMATION: Shoulder strain COMPARISON: None available. TECHNIQUE: AP external rotation, Grashey, scapular Y, and axillary views of the right shoulder. FINDINGS: Moderate acromioclavicular arthritis. Small chronic ossification adjacent to the lateral aspect of the acromion. Mild glenohumeral joint arthritis. Chronic ossification at the greater tuberosity, could represent bony spurring. No acute fracture or dislocation. Osteopenia. XR/XR shoulder RT min 2V IMPRESSION: Moderate acromioclavicular arthritis. Mild glenohumeral joint arthritis. Chronic ossification in the greater tuberosity, perhaps bony spurring. No radiographic evidence of acute fracture.
== END 2023-05-26 13:41 | disposition home or self-care (01) ==
LOC: HO.LAB 13:40
PROVIDERS: PCP Internal Medicine; Visit Provider Internal Medicine
DX: S43.401A Unspecified sprain of right shoulder joint, initial encounter (principal); X58.XXXA Exposure to other specified factors, initial encounter; Y93.9 Activity, unspecified; Y92.9 Unspecified place or not applicable; Y99.9 Unspecified external cause status
CPT/HCPCS: 73030

== ENCOUNTER 2023-07-14 13:25 | Outpatient (AMB) | payer OTHER, SELFPAY ==
--- NOTE | 2023-07-14 13:29 | MHC.OFFVIS ---
Intake Visit Reasons: N/problem left MF trigger finger Intake Note: Joanna a 73 year old right hand dominant female who presents today for an evaluation of left hand trigger fingers. Patient reports her left ring finger locks often for the last 6 months and has worsen. States she has to pop it up causing pain in her volar MCP. She was also experiencing locking of her left middle finger however this has improved. Also mentions constant numbness and tinging in bilateral hands the last 3 weeks. Reports its worse at night time and in the morning. Denies injury or EMG study. [employer] Maker Hand Name: Mariely ID#[id number] Allergies regadenoson [From Lexiscan] Adverse Reaction (Intermediate, Verified 07/14/23 13:40) Chest Pain HPI HPI N/problem left MF trigger finger: Details: 73-year-old right hand dominant female who presents to the office today with an pilot fuel engineer for evaluation of left middle finger. She states she has worsening occasional locking and tenderness to touch in her finger for the last 6 months. She reports she has to pop it up causing pain to her volar MCP. She also experiences locking of her left middle finger however this has improved. She also c/o constant numbness and tingling in her bilateral hands for the last 3 weeks that is worse at night and in the mornings. She denies any injury in the past. [facility] Medical History (Updated 07/17/23 @ 20:39 by Luis Gray PA-C) Non-rheumatic aortic stenosis History of neuropathy Chronic ankle pain Pleuritic chest pain Chronic allergic rhinitis History of COVID-19 Pre-op evaluation Encounter to establish care (~02/22/21) Asthma-COPD overlap syndrome COVID-19 ALISA (obstructive sleep apnea) Asthma Surgical History History of surgery on lower extremity History of back surgery History of thyroid surgery Family History Father Diabetes HTN (hypertension) Heart disease Mother Diabetes HTN (hypertension) Other Asthma Social History Household Members: None Housing: Apartment Alcohol intake: never Patient Tobacco Use Status: Former Tobacco user Tobacco use type: Cigarette Years Smoked: 10 years e-Cigarette/Vaping Use: Never Used Second Hand Smoke Exposure: No service: No Current occupational status: disabled Current occupational exposures/hazards: No Cognitive needs: Yes (cane) Hearing needs: No Vision needs: Yes Review of Systems Const All systems reviewed & are unremarkable except as noted in HPI and below Physical Exam Extrem Other: Left hand: Normal to inspection. She does have a palpable cord in line with the left ring finger along 1st and 2nd palmar crease. No tenderness to palpation. No active locking or catching. She has full extension of the digits. NVI. Assessment & Plan Assessment & Plan (1) Trigger finger, left: Code(s): M65.30 - Trigger finger, unspecified finger Category: Medical Qualifiers: Trigger finger location: middle finger Qualified Code(s): M65.332 - Trigger finger, left middle finger Plan I encouraged her to continue working on ROM techniques and massaging of the hand to potentially prevent more fibrosis of the tendon. If symptoms worsens or if she develops active locking of finger, she will contact the office for potential injection of the finger, sooner if needed. Patient Instructions: Scribed for Luis Gray PA-C, by Sp Guzman medical assistant secretary, on 07/14/2023 at 1:30 PM EST.? I, Luis Gray PA-C, have personally reviewed and agree with the information entered by the scribe. Coding Level of Care Code New Pt Level 3 (72854) Diagnoses Trigger middle finger of left hand M65.332 Trigger finger location: middle finger
== END 2023-07-14 15:00 | disposition home or self-care (01) ==
PROVIDERS: PCP Internal Medicine; Visit Provider Physician Assistant
DX: M65.332 Trigger finger, left middle finger (principal)
CPT/HCPCS: 99213

== ENCOUNTER → 2023-07-14 13:25 | Outpatient (BNVA) | payer OTHER, SELFPAY | PROVIDERS: PCP Internal Medicine; Visit Provider Physician Assistant | DX: M65.332 Trigger finger, left middle finger (principal) | CPT/HCPCS: 99212 ==

== ENCOUNTER 2023-08-03 11:59 | Outpatient (REF) | payer OTHER, SELFPAY ==
--- NOTE | ~2023-08-03 | XR_ITS ---
EXAMINATION: XR KNEE, RIGHT XR KNEE AP STANDING CLINICAL INFORMATION: Right knee primary osteoarthritis. COMPARISON: None TECHNIQUE: Lateral and axial views of the right knee were obtained. AP bilateral standing view of the knees was obtained. FINDINGS: There is bony demineralization. There is mild asymmetric narrowing of the medial joint space compartment of the right knee. The lateral joint space compartment is well-maintained. There is mild narrowing of the patellofemoral compartment. No fracture, dislocation or significant joint effusion is seen. An intramedullary fernando is applied to the right tibia, partially included in the [id number]. There is no foreign body. The lateral and medial joint space compartments of the left knee are well-maintained. No significant varus or valgus configuration is seen bilaterally. XR/XR knee RT 3V IMPRESSION: 1. There is mild osteoarthritic change of the medial and patellofemoral joint space compartments of the right knee. 2. The lateral and medial joint space compartments of the left knee are well-maintained. 3. No fracture or dislocation is seen. 4. There is no significant varus or valgus configuration noted bilaterally.
== END 2023-08-03 12:00 | disposition home or self-care (01) ==
LOC: HO.HOSX 11:59
PROVIDERS: Visit Provider Physician Assistant
DX: N39.46 Mixed incontinence (principal); R39.9 Unspecified symptoms and signs involving the genitourinary system; N39.8 Other specified disorders of urinary system; M70.61 Trochanteric bursitis, right hip; M53.3 Sacrococcygeal disorders, not elsewhere classified; M17.11 Unilateral primary osteoarthritis, right knee
CPT/HCPCS: 51798; 73562; 81003; 87086; 99212

== ENCOUNTER 2023-08-03 12:48 | Outpatient (AMB) | payer OTHER, SELFPAY ==
--- NOTE | 2023-08-03 12:49 | MHC.OFFVIS ---
Vital Signs 08/03/23 13:17 Height 5 ft 3 in Weight 158 lb BMI 28.0 Intake Visit Reasons: Newprob-Right knee pain/swelling Intake Note: Joanna a 73 year old female who presents today for an evaluation of right knee pain. Patient reports 1996 she had a fall in [place] and broke her tibia bone in her right leg and bone popped out, she was operated for this and hardware was added. Pain starts on right foot radiates to her ankle, to her knee, to her hip, and to her lower back. She expresses walking longer than 30 minutes and going up and down stairs exacerbates the pain worse. At 5pm everyday the pain is worse so I have to take 500 mg acetaminophen and put my leg up to relieve the pain. Hx of neuropathy. 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: Yes Naphthol Soaping Machine Operator Language: Machine Pecan Picker Name: [id number] Allergies regadenoson [From Virtual Computer] Adverse Reaction (Intermediate, Verified 08/03/23 13:14) Chest Pain Medication List - Last Reconciled 08/05/23 by Luis Gray PA-C albuterol sulfate 90 mcg/actuation 2 puffs inhalation Q6H PRN 30 days albuterol sulfate 2.5 mg (3 mL) inhalation Q6H PRN amlodipine 5 mg PO DAILY ascorbic acid (vitamin C) mg PO aspirin 81 mg PO DAILY azelastine 2 sprays intranasal BID 30 days azelastine-fluticasone 137-50 mcg/spray (Dymista) 1 spray intranasal BID benzonatate 200 mg PO BID PRN 30 days blood-glucose meter (FreeStyle Lite Meter kit) test daily carvedilol 6.25 mg PO BID cholecalciferol (vitamin D3) 25 mcg PO DAILY [DIABETIC SHOES As directed] fluticasone propionate 50 mcg/actuation 2 sprays intranasal DAILY 30 days rnlxqpqibmp-lkergjtbf-yxqhhwfc 200-62.5-25 mcg (Trelegy Ellipta) 1 inh inhalation DAILY 30 days wipotarhrkj-vakosnjbi-mprtkklx 200-62.5-25 mcg (Trelegy Ellipta) 1 inh inhalation DAILY 30 days ibuprofen 600 mg PO PRN [incontinence wipes As directed] ipratropium-albuterol 0.5 mg-3 mg(2.5 mg base)/3 mL 3 mL inhalation Q6H PRN levothyroxine 125 mcg PO DAILY losartan 50 mg PO DAILY memantine 28 mg PO DAILY 30 days metformin 500 mg PO DAILY montelukast 10 mg PO BEDTIME nebulizers As directed pantoprazole 20 mg PO DAILY Saccharomyces boulardii (Daily Probiotic (S. boulardii)) 5,000 mmu cells PO DAILY sertraline 50 mg PO DAILY simvastatin 20 mg PO BEDTIME [tumeric PO DAILY] HPI HPI Newprob-Right knee pain/swelling: Details: 73-year-old female who presents to the office today with an manufacturing engineer assembly for an evaluation of right knee pain. She currently states she has pain in her right foot that radiates to her ankle, knee, hip and lower back. She also reports swelling in her knee as well as numbness and tingling. Her pain is aggravated with stair use, walking longer than 30 minutes and ?at 5 pm every day that gets so worse that I have to take 500 mg acetaminophen and put my leg up to relieve the pain.? She has a history of neuropathy. She also has a history of fall in 1996 in [place] where she broke her right tibia bone and her bone popped out which required surgery. [facility] Medical History Non-rheumatic aortic stenosis History of neuropathy Chronic ankle pain Pleuritic chest pain Chronic allergic rhinitis History of COVID-19 Pre-op evaluation Encounter to establish care (~02/22/21) Asthma-COPD overlap syndrome COVID-19 ALISA (obstructive sleep apnea) Asthma Surgical History History of surgery on lower extremity History of back surgery History of thyroid surgery Family History Father Diabetes HTN (hypertension) Heart disease Mother Diabetes HTN (hypertension) Other Asthma Social History Household Members: None Housing: Apartment Alcohol intake: never Patient Tobacco Use Status: Former Tobacco user Tobacco use type: Cigarette Years Smoked: 10 years e-Cigarette/Vaping Use: Never Used Second Hand Smoke Exposure: No service: No Current occupational status: disabled Current occupational exposures/hazards: No Cognitive needs: Yes (cane) Hearing needs: No Vision needs: Yes Review of Systems Const All systems reviewed & are unremarkable except as noted in HPI and below Physical Exam Vital Signs: BMI result Body Mass Index 28.0 Extrem Other: Right hip: Normal to inspection. No pain with ROM of the hip. Pain along the greater trochanter. No pain with hip flexion or abduction. Positive tenderness along the SI joint, Positive SLR. NVI. Results AMB Urinalysis, Automated UA Leukoctes 0 Damien/uL Last Edit by SUHAS Mcgovern on 08/03/23 14:27 UA Nitrite Negative Last Edit by SUHAS Mcgovern on 08/03/23 14:27 UA Urobilinogen 0.2 mg/dL Last Edit by SUHAS Mcgovern on 08/03/23 14:27 UA Protein 30 mg/dL Last Edit by SUHAS Mcgovern on 08/03/23 14:27 1+ Meredith Capellan 08/03/23 14:27 UA pH 5.5 Last Edit by SUHAS Mcgovern on 08/03/23 14:27 UA Blood 10 Lawrence/uL Last Edit by SUHAS Mcgovern on 08/03/23 14:27 UA Specific [place] 1.030 Last Edit by SUHAS Mcgovern on 08/03/23 14:27 UA Ketone Positive Last Edit by SUHAS Mcgovern on 08/03/23 14:27 5mg/dL Meredith Capellan 08/03/23 14:27 UA Bilirubin 0 mg/dL Last Edit by SUHAS Mcgovern on 08/03/23 14:27 UA Glucose 0 mg/dL Last Edit by SUHAS Mcgovern on 08/03/23 14:27 Results Reviewed Results Reviewed: Xrays were obtained in the office today and personally reviewed by me of the right knee show mild oa Assessment & Plan Assessment & Plan (1) Trochanteric bursitis, right hip: Code(s): M70.61 - Trochanteric bursitis, right hip Category: Medical (2) Sacroiliac joint dysfunction of right side: Code(s): M53.3 - Sacrococcygeal disorders, not elsewhere classified Category: Medical Plan We discussed options which include PT, NSAIDs and injections. The patient will defer on the injection today and proceed with PT and NSAIDs. If symptoms persist, she will contact me for an injection, otherwise, PRN. Orders: Orders XR knee RT 3V 08/03/23 M17.11 - Unilateral primary osteoarthritis, right knee PT Evaluation and Treatment 08/03/23 M53.3 - Sacrococcygeal disorders, not elsewhere classified, M70.61 - Trochanteric bursitis, right hip Patient Instructions: Scribed for Luis Gray PA-C, by Sp Guzman medical officer, on 08/03/2023 at 12:45 PM EST.? I, Luis Gray PA-C, have personally reviewed and agree with the information entered by the scribe. Coding Level of Care Code Est Pt Level 3 (87274) Diagnoses Trochanteric bursitis, right hip M70.61 Sacroiliac joint dysfunction of right side M53.3
[2023-08-03 13:17] VITALS: BMI 28.0
== END 2023-08-03 16:16 | disposition home or self-care (01) ==
PROVIDERS: PCP Internal Medicine; Visit Provider Physician Assistant
DX: M70.61 Trochanteric bursitis, right hip (principal); M53.3 Sacrococcygeal disorders, not elsewhere classified
CPT/HCPCS: 99213

== ENCOUNTER 2023-08-03 14:36 | Outpatient (AMB) | payer OTHER, SELFPAY ==
--- NOTE | 2023-08-03 14:11 | A.OFFVIS_ITS ---
Intake Visit Reasons: Incontinence Intake Note: Patient of Nicolette Joseph presents to the office today with concern of urinary incontinence which is getting worse, pt would like to have a 2nd opinion, patient stated none of the medication that she has tried has help, and would like to have Urodynamic Procedure.: Meds- None Allergies to Antibiotic- No Known Allergies Blood Thinner- Aspirin Post Void Residual: 0 mL House Admin Required: Yes House Admin Language: [place] Information Interpreted: non-clinical & clinical Accompanied by: Self / Same As Patient Allergies regadenoson [From Lexiscan] Adverse Reaction (Intermediate, Verified 08/03/23 13:14) Chest Pain HPI Comments Details: 08/03/23--Joanna is [place]-speaking and a certified gi asst present. She was evaluated last by nurse practitioner Nicolette Joseph. She planes of urinary symptoms leaking associated with urgency and coughing. 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 She states she completed pelvic floor physical therapy and has been doing exercises with only mild improvement in her urinary symptoms. I have discussed that common causes for urinary incontinence include bladder spasms and pelvic floor weakness. The patient failed Myrbetriq and VESIcare. Discussed further evaluation if urodynamics. Review of chart: 12/29/22--Joanna is a pleasant 72-year-old [place] speaking female patient of Dr. Mitchell. She has a past medical history of neuropathy, allergies, asthma, and obstructive sleep apnea. She has a past medical history of chronic allergic rhinitis, bronchitis, asthma, and obstructive sleep apnea. She is being follow- up on today via telehealth for her lower urinary tract symptoms (urinary freque ncy, urinary urgency and episodes of incontinence if not near a bathroom). Telehealth appointment was made today due to clarification of medications. During last office visit patient had reported some improvement with Myrbetriq 25 mg daily however felt urinary symptoms could be better at which time recommendations were made for additional 5 mg of VESIcare daily. However, patient discusses today feeling Myrbetriq was not helpful and is feeling VESIcare is causing her constipation. Discussed at length potential side effects of overactive bladder medications. Discussed and stressed pelvic floor therapy. Previous workup has included a retroperitoneal ultrasound noting unremarkable imaging of kidneys and bladder. Discussed bladder triggers/irritants. She otherwise offers no issues or concerns at this time. [facility] Medical History Non-rheumatic aortic stenosis History of neuropathy Chronic ankle pain Pleuritic chest pain Chronic allergic rhinitis History of COVID-19 Pre-op evaluation Encounter to establish care (~02/22/21) Asthma-COPD overlap syndrome COVID-19 ALISA (obstructive sleep apnea) Asthma Surgical History History of surgery on lower extremity History of back surgery History of thyroid surgery Family History Father Diabetes HTN (hypertension) Heart disease Mother Diabetes HTN (hypertension) Other Asthma Social History Household Members: None Housing: Apartment Alcohol intake: never Patient Tobacco Use Status: Former Tobacco user Tobacco use type: Cigarette Years Smoked: 10 years e-Cigarette/Vaping Use: Never Used Second Hand Smoke Exposure: No service: No Current occupational status: disabled Current occupational exposures/hazards: No Cognitive needs: Yes (cane) Hearing needs: No Vision needs: Yes Review of Systems Const All systems reviewed & are unremarkable except as noted in HPI and below Reports no additional complaints Eyes Reports no additional complaints ENT Reports no additional complaints Card Reports no additional complaints Resp Reports no additional complaints GI Reports no additional complaints Reports as per HPI Musc Reports no additional complaints Skin/Breast Reports system reviewed and no additional complaints, except as documented Neuro Reports no additional complaints Psych Reports no additional complaints Endo Reports no additional complaints Luis Alfredo/Lymph Reports no additional complaints Aller/Immun Reports no additional complaints Office Procedures Post Void Residual Post Residual Void Post Void Residual (PVR): 0 50457-Ciie Void Residual by ultrasound Results AMB Urinalysis, Automated UA Leukoctes 0 Damien/uL Last Edit by SUHAS Mcgovern on 08/03/23 14:27 UA Nitrite Negative Last Edit by Meredith Capellan Camilo on 08/03/23 14:27 UA Urobilinogen 0.2 mg/dL Last Edit by Meredith Capellan Camilo on 08/03/23 14:2 7 UA Protein 30 mg/dL Last Edit by Meredith Capellan [facility] on 08/03/23 14:27 1+ Meredith Capellan 08/03/23 14:27 UA pH 5.5 Last Edit by Meredith Capellan [facility] on 08/03/23 14:27 UA Blood 10 Lawrence/uL Last Edit by Meredith Capellan [facility] on 08/03/23 14:27 UA Specific [place] 1.030 Last Edit by Meredith Capellan [facility] on 08/03/23 14: 27 UA Ketone Positive Last Edit by Meredith Capellan [facility] on 08/03/23 14:27 5mg/dL Meredith Capellan 08/03/23 14:27 UA Bilirubin 0 mg/dL Last Edit by Meredith Capellan [facility] on 08/03/23 14:27 UA Glucose 0 mg/dL Last Edit by Meredith Capellan [facility] on 08/03/23 14:27 Results Reviewed Results Reviewed: Laboratory Last Values Urine pH (Auto) 5.5 08/03/23 14:12 Specific Outlook (Auto) 1.030 08/03/23 14:12 Urine Protein (Auto) 30 mg/dL 08/03/23 14:12 Glucose (UA)(Auto) 0 mg/dL 08/03/23 14:12 Urine Ketones (Auto) Positive 08/03/23 14:12 Urine Blood (Auto) 10 Lawrence/uL 08/03/23 14:12 Urine Nitrite (Auto) Negative 08/03/23 14:12 Urine Bilirubin (Auto) 0 mg/dL 08/03/23 14:12 Urine Urobilinogen (Auto) 0.2 mg/dL 08/03/23 14:12 Leukocyte Esterase (Auto) 0 Damien/uL 08/03/23 14:12 Date of Service: 04/01/22 US RETROPERITONEAL LIMITED (RENAL ONLY) FINDINGS: RIGHT KIDNEY: 10.0 x 3.8 x 4.7 cm (SAG x AP x TRV). The kidney is normal in size, contour, and echogenicity. Renal cortical thickness is normal. No calculi or focal parenchymal lesions. No hydronephrosis. LEFT KIDNEY: 10.1 x 5.4 x 5.5 cm (SAG x AP x TRV). The kidney is normal in size, contour, and echogenicity. Renal cortical thickness is normal. No calculi or focal parenchymal lesions. No hydronephrosis. IMPRESSION: Unremarkable renal ultrasound. Date of Service: 04/04/22 US PELVIS LIMITED (BLADDER) FINDINGS: BLADDER: Well distended and normal. Bilateral ureteral jets are demonstrated. Prevoid bladder volume is 227 mL. Postvoid bladder volume is 18 mL. IMPRESSION: Unremarkable examination. Assessment & Plan Assessment & Plan (1) Urinary incontinence: Code(s): R32 - Unspecified urinary incontinence Category: Medical (2) Lower urinary tract symptoms: Code(s): R39.9 - Unspecified symptoms and signs involving the genitourinary system Category: Medical (3) Mixed incontinence urge and stress: Code(s): N39.46 - Mixed incontinence Category: Medical Plan Schedule urodynamics. Orders: Orders AMB Urinalysis Automated Today Z13.9 - Encounter for screening, unspecified AMB Post Void Residual by ultrasound Today N39.8 - Other specified disorders of urinary system Patient Instructions: The patient had an opportunity to ask questions regarding treatment plan. The patient expressed understanding and agreement with the above treatment plan. The patient is aware they should contact our office by phone for worsening of their current condition or the appearance of new symptoms. Compliance is encouraged with any medications and followup testing that is ordered. It is a privilege to be allowed the opportunity to participate in the urologic care of your patient. If you have any questions or concerns regarding treatment for the above conditions please do not hesitate to contact me. The office telephone contact is [phone]. This note is constructed in part using voice recognition software. While every effort has been made to ensure accuracy mash grinder errors may have been included. Yours sincerely, Colton Ledesma MD Coding Level of Care Code Est Pt Level 4 (51903) Diagnoses Urinary incontinence R32 Lower urinary tract symptoms R39.9 Mixed incontinence urge and stress N39.46 CPT Codes Post Residual Void - PVR CPT Code: 75751-Jcox Void Residual by ultrasound ([id number])
== END 2023-08-03 15:36 | disposition home or self-care (01) ==
PROVIDERS: PCP Internal Medicine; Visit Provider Urology
DX: R39.9 Unspecified symptoms and signs involving the genitourinary system (principal); N39.46 Mixed incontinence; Z13.9 Encounter for screening, unspecified
CPT/HCPCS: 99213

== ENCOUNTER 2023-08-03 15:47 | Outpatient (REF) | payer OTHER, SELFPAY | END 2023-08-03 15:48 | disposition home or self-care (01) | LOC: HO.LAB 15:47 | PROVIDERS: Visit Provider Urology | DX: Z13.89 Encounter for screening for other disorder (principal) | CPT/HCPCS: 87086 ==

== ENCOUNTER 2023-08-09 08:38 | Outpatient (AMB) | payer OTHER, SELFPAY ==
--- NOTE | 2023-08-09 08:50 | A.OFFPC_ITS ---
Vital Signs 08/09/23 08:52 Height 5 ft 3 in Weight 154 lb 2 oz BMI 27.3 BP 122/60 Blood Pressure Location Lt brachial Position Sitting Pulse 68 Pulse Source Pulse Oximeter Pulse Oximetry (%) 98 Oxygen Delivery Method Room Air Intake Visit Reasons: 3 Month F/U Intake Note: Patient is here to follow up on DM, Neuropathy, HTN, HLD. Complaint of right leg and foot pain with cramps. Air Turning Machine Feeder Required: Yes Air Turning Machine Feeder Language: [place] Citizen Information Interpreted: non-clinical & clinical Assistant Casino Shift Manager: Not Required per policy Accompanied by: Self / Same As Patient Allergies regadenoson [From Lexiscan] Adverse Reaction (Intermediate, Verified 08/09/23 08:52) Chest Pain Tobacco use date assessed: 08/09/23 Fall risk assessment: No Falls in past year Last assessed Fall Risk: 08/09/23 Dental Screening Dental Screen Date: 04/26/23 HPI 3 Month F/U HPI Details 73-year-old female presents to the offic e to discuss her chronic medical conditions. Patient is complaining of pain in the right leg. Patient has a metal fernando in her right leg after a compound fracture. She is noticed hyperpigmentation on the skin and generalized discomfort in the leg. Relieved by keeping her leg elevated. Able to walk with no difficulty or limp. Compliant with medications and reporting no side effects. Patient is requesting refill for 90 days. [facility] Medical History Non-rheumatic aortic stenosis History of neuropathy Chronic ankle pain Pleuritic chest pain Chronic allergic rhinitis History of COVID-19 Pre-op evaluation Encounter to establish care (~02/22/21) Asthma-COPD overlap syndrome COVID-19 ALISA (obstructive sleep apnea) Asthma Surgical History History of surgery on lower extremity History of back surgery History of thyroid surgery Family History Father Diabetes HTN (hypertension) Heart disease Mother Diabetes HTN (hypertension) Other Asthma Social History Household Members: None Housing: Apartment Alcohol intake: never Patient Tobacco Use Status: Former Tobacco user Tobacco use type: Cigarette Years Smoked: 10 years e-Cigarette/Vaping Use: Never Used Second Hand Smoke Exposure: No service: No Current occupational status: disabled Current occupational exposures/hazards: No Cognitive needs: Yes (cane) Hearing needs: No Vision needs: Yes Questionnaire Thrive Questionnaire Date Thrive assessed: 04/26/23 ROSS-7 AMB Questionnaire ROSS-7 Date ROSS - 7 assessed: 04/26/23 Source: Developed by Drs. Moncho Pacheco, Ade Soto, Bill Goldman and colleagues, with an educational lisa from [employer]. Physical exam (Primary Care) Vital Signs: Last Vital Signs Pulse 68 08/09/23 08:52 BP 122/60 08/09/23 08:52 Pulse Ox 98 08/09/23 08:52 Oxygen Delivery Method Room Air 08/09/23 08:52 BMI result Body Mass Index 27.3 Tobacco/Smoking Status: Tobacco use Status Tobacco use date assessed 08/09/23 08/09/23 08:53 Patient Tobacco Use Status Former Tobacco user 08/09/23 08:53 Tobacco use type Cigarette 08/09/23 08:53 e-Cigarette/Vaping Use Never Used 08/09/23 08:53 Thrive Assessment: Date of Thrive Assessment Date Thrive assessed 04/26/23 08/09/23 08:53 Const General: cooperative and healthy appearing Nutritional Appearance: well nourished Orientation/consciousness: patient oriented x3 Limitations: no limitations HENMT Head: Yes normal to inspection Eyes General: appearance normal, both eyes and all related structures Neck Neck: Yes normal visual inspection Chest Chest palpation & inspection: normal palpation of entire chest wall Resp Effort & Inspection: normal respiratory effort Neuro General: patient oriented x3 Results AMB Hemoglobin A1c AMB Hemoglobin A1c 6.0 % Last Edit by SUHAS Brown on 08/09/23 09:19 Results Reviewed Results Reviewed: Laboratory Last Values Hgb A1c (Clinic) 6.0 % (4.0-6.0) 08/09/23 08:50 Assessment and Plan Assessment & Plan (1) DM type 2 (diabetes mellitus, type 2): Code(s): E11.9 - Type 2 diabetes mellitus without complications Plan: A1c is in range. Continue medications at same dosage. (2) Essential hypertension: Code(s): I10 - Essential (primary) hypertension Plan: Blood pressure is in range. Continue medications at same dosage. (3) Asthma-COPD overlap syndrome: Code(s): J44.9 - Chronic obstructive pulmonary disease, unspecified Plan: Condition is stable. (4) Right leg pain: Code(s): M79.604 - Pain in right leg Plan: Reassurance. Orders: Orders AMB Hemoglobin A1c Today E11.9 - Type 2 diabetes mellitus without complications Basic Metabolic Panel Today E11.9 - Type 2 diabetes mellitus without complications, I10 - Essential (primary) hypertension, J44.9 - Chronic obstructive pulmonary disease, unspecified Lipid Panel Today E11.9 - Type 2 diabetes mellitus without complications, I10 - Essential (primary) hypertension, J44.9 - Chronic obstructive pulmonary disease, unspecified Thyroid Stimulating Hormone Today E11.9 - Type 2 diabetes mellitus without complications, I10 - Essential (primary) hypertension, J44.9 - Chronic o bstructive pulmonary disease, unspecified UA and rflx microscopic Today E11.9 - Type 2 diabetes mellitus without complications, I10 - Essential (primary) hypertension, J44.9 - Chronic obstructive pulmonary disease, unspecified Liver Panel Today E11.9 - Type 2 diabetes mellitus without complications, I10 - Essential (primary) hypertension, J44.9 - Chronic obstructive pulmonary disease, unspecified Coding Level of Care Code Est Pt Level 4 (19777) Complex EM visit Add On G2211 Diagnoses DM type 2 (diabetes mellitus, type 2) E11.9 Essential hypertension I10 Asthma-COPD overlap syndrome J44.9 Right leg pain M79.604
[2023-08-09 08:52] VITALS: BP 122/60; PULSE 68; O2SAT 98; BMI 27.3
== END 2023-08-09 09:37 | disposition home or self-care (01) ==
LOC: HO.HMGH 08:38
PROVIDERS: PCP Internal Medicine; Visit Provider Internal Medicine
DX: E11.9 Type 2 diabetes mellitus without complications (principal); I10 Essential (primary) hypertension; J44.9 Chronic obstructive pulmonary disease, unspecified; M79.604 Pain in right leg
CPT/HCPCS: 83036; 99214; G2211

== ENCOUNTER 2023-08-11 10:46 | Outpatient (AMB) | payer OTHER, SELFPAY ==
--- NOTE | 2023-08-11 10:54 | A.OFFVIS_ITS ---
Intake Visit Reasons: Urodynamics Intake Note: Patient presents today for a URODYNAMIC Procedure: Meds: None Allergies to Antibiotic: No Known Allergies Blood Thinner: Aspirin Senior Functional Analyst Required: Yes Senior Functional Analyst Language: Bleach Supervisor Services: Senior Functional Analyst Present Senior Functional Analyst Name: Meredith Capellan, SUHAS/LILIAN SPANI Information Interpreted: non-clinical & clinical Retail Marketing Coordinator: Retail Marketing Coordinator Present Accompanied by: Self / Same As Patient Allergies regadenoson [From Lexiscan] Adverse Reaction (Intermediate, Verified 09/01/23 09:36) Chest Pain HPI Comments Details: 08/11/23--here for urodynamics. CMG parameters detailed below. Interpretation: During the filling phase there was normal sensation, sensory urgency was noted, strong urge was noted significant detrusor contraction associated with leakage of entire volume filled; the patient was refilled and stress test was negative. There was a cough induced detrusor contraction noted. Findings consistent with decreased compliance and detrusor overactivity. EMG- Appropriate changes in the waveforms were noted through out the study. Discussed role of PO anticholinergics on bladder spasms, pt stated she stopped bladder medication due to constipation. Discussed alternative therapy options to include Botox bladder injection. Discussed risks and benefits to include but not limited to UTI, hematuria, urinary retention, need to repeat botox to maintain efficacy. 20 minutes spent in [id number] discussion with the patient, review of records pertaining to this visit and including documentation of this visit. 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 She was evaluated last by nurse practitioner Nicolette Joseph. She planes of urinary symptoms leaking associated with urgency and coughing. 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 She states she completed pelvic floor physical therapy and has been doing exercises with only mild improvement in her urinary symptoms. I have discussed that common causes for urinary incontinence include bladder spasms and pelvic floor weakness. The patient failed Myrbetriq and VESIcare. Discussed further evaluation if urodynamics. 12/29/22--Joanna is a pleasant 72-year-old Pashto speaking female patient of Dr. Mitchell. She has a past medical history of neuropathy, allergies, asthma, and obstructive sleep apnea. She has a past medical history of chronic allergic rhinitis, bronchitis, asthma, and obstructive sleep apnea. She is being follow- up on today via telehealth for her lower urinary tract symptoms (urinary frequency, urinary urgency and episodes of incontinence if not near a bathroom). Telehealth appointment was made today due to clarification of medications. During last office visit patient had reported some improvement with Myrbetriq 25 mg daily however felt urinary symptoms could be better at which time recommendations were made for additional 5 mg of VESIcare daily. However, patient discusses today feeling Myrbetriq was not helpful and is feeling VESIcare is causing her constipation. Discussed at length potential side effects of overactive bladder medications. Discussed and stressed pelvic floor therapy. Previous workup has included a retroperitoneal ultrasound noting unremarkable imaging of kidneys and bladder. Discussed bladder triggers/irritants. She otherwise offers no issues or concerns at this time. [facility] Medical History Non-rheumatic aortic stenosis History of neuropathy Chronic ankle pain Pleuritic chest pain Chronic allergic rhinitis History of COVID-19 Pre-op evaluation Encounter to establish care (~02/22/21) Asthma-COPD overlap syndrome COVID-19 ALISA (obstructive sleep apnea) Asthma Surgical History History of surgery on lower extremity History of back surgery History of thyroid surgery Family History Father Diabetes HTN (hypertension) Heart disease Mother Diabetes HTN (hypertension) Other Asthma Social History Household Members: None Housing: Apartment Alcohol intake: former Patient Tobacco Use Status: Former Tobacco user Tobacco use type: Cigarette Years Smoked: 10 years e-Cigarette/Vaping Use: Never Used Second Hand Smoke Exposure: No service: No Current occupational status: disabled Current occupational exposures/hazards: No Cognitive needs: Yes (cane) Hearing needs: No Vision needs: Yes Review of Systems Const All systems reviewed & are unremarkable except as noted in HPI and below Reports no additional complaints Eyes Reports no additional complaints ENT Reports no additional complaints Card Reports no additional complaints Resp Reports no additional complaints GI Reports no additional complaints Reports as per HPI Musc Reports no additional complaints Skin/Breast Reports system reviewed and no additional complaints, except as documented Neuro Reports no additional complaints Psych Reports no additional complaints Endo Reports no additional complaints Luis Alfredo/Lymph Reports no additional complaints Aller/Immun Reports no additional complaints Office Procedures Urodynamic Studies Consent Discussed risk and benefit or proposed procedure with the patient. Information consent for procedure given to the patient. Discussed technical aspects, risks, benefits and alternatives in full. Addressed all of the patient's questions and concerns regarding the procedure. The patient demonstrated knowledge and understanding. They wish to proceed with this procedure. Preparation The patient was prepped in the usual manner. A weigher operator was present and in the room. Genitalia was prepped with betadine solution in a sterile manner. Prep: The patient was prepped in the usual manner. A weigher operator was present and in the room. Genitalia was prepped with betadine solution in a sterile manner. Complex Uroflow Complex uroflow performed by: Colton Ledesma Maximum urinary flow rate (mL/second): 21 Voiding time (seconds): 12 Voided volume (mL): 150 Residual urine (mL): 35 Cystometrogram Vaginal/rectal catheter type: rectal First sensation at (mL): mL First desire at (mL): 61 mL Strong desire to void occured at (mL): 106 mL Voided with max detrussor pressure of (cm H2O): NA, as pt leaked entire volume with bladder contraction. [place] flow [place]mL[place]): [place] [address]-Ozrukvxjlxyvjr w/ SIPHON OPERATOR 94575-Teeqrav-Qkabbfrmabkr First 30742-Czns/Urinary Muscle Study 48440-Cseqa-Ncwnuqxkq Pressure Test Procedure code (CPT) selection complete Office Meds nitrofurantoin monohydrate/macrocrystals 100 mg capsule Performing Provider: Colton Ledesma MD [facility] Administered by: Ced Mata LPN on 08/11/23 10:57 Dose Route Admin Location Dispensed Lot Number Expiration Date NDC Dye Weigher 100 mg PO 1 cap Assessment & Plan Assessment & Plan (1) Urinary incontinence: Code(s): R32 - Unspecified urinary incontinence Category: Medical (2) Lower urinary tract symptoms: Code(s): R39.9 - Unspecified symptoms and signs involving the genitourinary system Category: Medical (3) OAB (overactive bladder): Code(s): N32.81 - Overactive bladder Category: Medical Plan Schedule Botox bladder injection, 100 units Orders: Orders AMB Urodynamics Studies 08/11/23 R39.9 - Unspecified symptoms and signs involving the genitourinary system, R32 - Unspecified urinary incontinence, N39.46 - Mixed incontinence Patient Instructions: The patient had an opportunity to ask questions regarding treatment plan. The patient expressed understanding and agreement with the above treatment plan. The patient is aware they should contact our office by phone for worsening of their current condition or the appearance of new symptoms. Compliance is encouraged with any medications and followup testing that is ordered. It is a privilege to be allowed the opportunity to participate in the urologic care of your patient. If you have any questions or concerns regarding treatment for the above conditions please do not hesitate to contact me. The office telephone contact is [phone]. This note is constructed in part using voice recognition software. While every effort has been made to ensure accuracy life enrichment specialist errors may have been included. Yours sincerely, Colton Ledesma MD Coding Level of Care Code Est Pt Level 3 (32892) Diagnoses Urinary incontinence R32 Lower urinary tract symptoms R39.9 OAB (overactive bladder) N32.81 CPT Codes Urodynamic Studies - CPT: 70096-Aeurhxvtxqfsvr w/ SIPHON OPERATOR ([id number]) Urodynamic Studies - CPT: 93521-Aogzoaj-Pukqyncahino First ([id number]) Urodynamic Studies - CPT: 17401-Qzqq/Urinary Muscle Study ([id number]) Urodynamic Studies - CPT: 26917-Yijgx-Ljgomviug Pressure Test ([id number])
== END 2023-08-11 11:51 | disposition home or self-care (01) ==
PROVIDERS: PCP Internal Medicine; Visit Provider Urology
DX: R39.9 Unspecified symptoms and signs involving the genitourinary system (principal); N39.46 Mixed incontinence
CPT/HCPCS: 51728; 51741; 51784; 51797; 99213

== ENCOUNTER → 2023-08-11 10:46 | Outpatient (BNVA) | payer OTHER, SELFPAY | PROVIDERS: PCP Internal Medicine; Visit Provider Urology | DX: N32.81 Overactive bladder (principal); N39.46 Mixed incontinence; R39.9 Unspecified symptoms and signs involving the genitourinary system | CPT/HCPCS: 51728; 51741; 51784; 51797; 99212 ==

== ENCOUNTER 2023-08-16 13:44 | Emergency (ER) | payer OTHER, SELFPAY ==
[2023-08-16 13:49] VITALS: BP 117/50; PULSE 80; O2SAT 94
[2023-08-16 13:52] VITALS: BP 129/42; PULSE 76; RESP 18; TEMP 36.8; O2SAT 94; BMI 29.3
--- NOTE | 2023-08-16 13:59 | ECG_ITS ---
Test Reason : SYNCOPE Blood Pressure : / mmHG Vent. Rate : 070 BPM Atrial Rate : 070 BPM P-R Int : 126 ms QRS Dur : 088 ms QT Int : 406 ms P-R-T Axes : 067 -11 096 degrees QTc Int : 438 ms Normal sinus rhythm Minimal voltage criteria for LVH, may be normal variant ( R in aVL ) Nonspecific T wave abnormality Abnormal ECG When compared with ECG of 16-MAR-2021 15:26, No significant change was found Referred By: Zeeshan Parra Electronically Signed By:KENNEDY ZEPEDA MD
--- NOTE | 2023-08-16 13:59 | ED.WEAKNESS ---
HPI - Weakness General Chief complaint: General Medical Stated complaint: WEAK,DIZZY,SOB PER EMS Time Seen by Provider: 08/16/23 13:53 Source: patient, family and EMS Mode of arrival: EMS Limitations: language barrier History of Present Illness ED Provider: Dr. Parra HPI Narrative: EMS gave 3 baby ASA. After lunch patient felt dizzy like she was going to pass out, she never lost consciousness MD Complaint: generalized weakness Onset (ago): minute(s) Severity: mild Associated symptoms: other (dizziness) Related Data Home Medications ?Medication ?Instructions ?Recorded ?Confirmed nebulizers 11/11/21 08/05/23 Saccharomyces boulardii 250 mg 5,000 mmu cells PO DAILY 04/06/22 08/05/23 capsule (Daily Probiotic (S. boulardii)) ascorbic acid (vitamin C) 500 mg mg PO 04/06/22 08/05/23 capsule ibuprofen 600 mg tablet 600 mg PO PRN 04/06/22 08/05/23 tumeric PO DAILY 07/06/22 08/05/23 cholecalciferol (vitamin D3) 25 25 mcg PO DAILY 10/10/22 08/05/23 mcg (1,000 unit) capsule sertraline 100 mg tablet 50 mg PO DAILY 12/21/22 08/05/23 Previous Rx's ?Medication ?Instructions ?Recorded albuterol sulfate 90 mcg/actuation 2 puff inhalation Q6H PRN 09/07/20 aerosol inhaler shortness of breath or wheezing 30 days #8.5 grams blood-glucose meter (FreeStyle #1 ea 09/22/21 Lite Meter kit) fluticasone fur. 200 mcg-umeclid 1 inh inhalation DAILY 30 days #60 03/07/22 62.5 mcg-vilant 25 mcg ea inhalat.powder (Trelegy Ellipta) incontinence wipes #300 ea 08/08/22 montelukast 10 mg tablet 10 mg PO BEDTIME #90 tabs 08/29/22 albuterol sulfate 2.5 mg/3 mL 2.5 mg (3 mL) inhalation Q6H PRN 12/19/22 (0.083 %) solution for nebulization for wheezing #150 mL ipratropium 0.5 mg-albuterol 3 mg 3 ml inhalation Q6H PRN wheezing 12/21/22 (2.5 mg base)/3 mL nebulization #90 mL soln amlodipine 5 mg tablet 5 mg PO DAILY #90 tabs 01/04/23 DIABETIC SHOES #1 ea 01/20/23 azelastine 137 mcg-fluticasone 50 1 spray intranasal BID #23 grams 02/03/23 mcg/spray nasal spray (Dymista) benzonatate 200 mg capsule 200 mg PO BID PRN cough 30 days 02/03/23 #30 caps simvastatin 20 mg tablet 20 mg PO BEDTIME #90 tabs 03/09/23 azelastine 137 mcg (0.1 %) nasal 2 spray intranasal BID 30 days #30 03/31/23 spray aerosol mL fluticasone propionate 50 2 spray intranasal DAILY 30 days 03/31/23 mcg/actuation nasal #15.8 mL spray,suspension aspirin 81 mg chewable tablet 81 mg PO DAILY #90 tabs 05/03/23 memantine 28 mg capsule 28 mg PO DAILY 30 days #30 ea 05/15/23 sprinkle,extended release 24hr metformin 500 mg tablet 500 mg PO DAILY #90 tabs 06/10/23 carvedilol 6.25 mg tablet 6.25 mg PO BID #180 tabs 06/21/23 losartan 50 mg tablet 50 mg PO DAILY #90 tabs 07/19/23 levothyroxine 125 mcg tablet 125 mcg PO DAILY #90 tabs 07/20/23 fluticasone fur. 200 mcg-umeclid 1 inh inhalation DAILY 30 days #60 08/04/23 62.5 mcg-vilant 25 mcg ea inhalat.powder (Trelegy Ellipta) pantoprazole 20 mg tablet,delayed 20 mg PO DAILY #30 tabs 08/04/23 release Allergies Allergy/AdvReac Type Severity Reaction Status Date / Time regadenoson [From [employer]] AdvReac Intermediate Chest Pain Verified 08/16/23 13:59 Review of Systems Review of Systems: Yes all other systems are reviewed and are negative Neurologic: Denies Sensory deficit (Neuro) PMFSH Past Medical History Medical History Non-rheumatic aortic stenosis History of neuropathy Chronic ankle pain Pleuritic chest pain Chronic allergic rhinitis History of COVID-19 Pre-op evaluation Encounter to establish care (~02/22/21) Asthma-COPD overlap syndrome COVID-19 ALISA (obstructive sleep apnea) Asthma Surgical History History of surgery on lower extremity History of back surgery History of thyroid surgery Family History Family History Father Diabetes HTN (hypertension) Heart disease Mother Diabetes HTN (hypertension) Other Asthma Social History Social History Household Members: None Housing: Apartment Alcohol intake: former Patient Tobacco Use Status: Former Tobacco user Tobacco use type: Cigarette Years Smoked: 10 years Smoked in Last 30 Days: No e-Cigarette/Vaping Use: Never Used Second Hand Smoke Exposure: No Use of substances other than those prescribed or required for medical reasons: No Advance Directives: No Advance Directives Information Provided: Yes service: No Current occupational status: disabled Current occupational exposures/hazards: No Cognitive needs: Yes (cane) Hearing needs: No Vision needs: Yes Physical Exam Vital Signs: Vital Signs: Last Vital Signs Temp 98.1 F 08/16/23 16:32 Pulse 73 08/16/23 16:32 Resp 15 08/16/23 16:32 BP 116/69 08/16/23 16:32 Pulse Ox 96 08/16/23 16:32 O2 Del Method Room Air 08/16/23 16:32 BMI result Body Mass Index 29.3 Const: General: healthy appearing Nutritional Appearance: average body habitus Orientation/consciousness: oriented to person and patient oriented x3 Limitations: no limitations HEENT: Head: Yes normal to inspection Ears: external ears normal General nose exam: Normal external nose present Mouth: Normal oral and palatal mucosa present and oropharynx normal Throat: Yes posterior oropharynx normal Eyes: General: appearance normal, both eyes and all related structures Neck: Other: supple Neck: Yes normal visual inspection Chest: Chest palpation & inspection: normal inspection of the chest Resp: Auscultation: clear to auscultation bilaterally Cardio: Jugular venous distension: no JVD Rate: regular rate Rhythm: regular rhythm Heart sounds: S1 normal heart sound present and S2 normal heart sound present GI: Inspection: Yes normal to inspection Palpation (GI): Soft to palpation, nontender and No hepatosplenomegaly present Auscultation: normal bowel sounds : General: Yes no CVA tenderness Back/Spine/Pelvis: Back: no CVA tenderness Skin: General skin exam: no rashes or lesions noted Neuro: General: oriented to person and patient oriented x3 Cranial nerves: Yes CN's II-XII intact bilaterally Motor exam (neuro): 5/5 motor strength present throughout Sensory Exam: No Sensory deficit (Neuro) Extrem: General: Yes normal to inspection Psych: Appearance: grossly normal Course Reevaluation(s) Reevaluation #1: normal EKG normal troponin, slight hyperglycemia will dc home Time: 17:23 Medical Decision Making Differential Diagnosis Differential Diagnoses: The differential diagnosis associated with the presentation includes (dizziness, near syncope, lightheaded, hypoglycemia cardiac ischemia) Admission/Observation Consideration of admission/observation: Escalation of care including admission/observation considered (upon arrival patient was considered for admission) Lab Data 08/16/23 14:25 08/16/23 14:25 Labs: Lab Results 08/16/23 Range/Units 14:25 WBC 12.6 H (4.8-10.8) X10*3/uL RBC 4.21 (4.20-5.50) X10*6/uL Hgb 12.1 (12.0-16.0) g/dl Hct 36.7 L (37.0-47.0) % MCV 87.2 (80.0-98.0) fL MCH 28.7 (27.0-33.0) pg MCHC 33.0 (31.0-35.0) g/dl RDW 14.6 (11.0-16.0) % Plt Count 247 (160-400) X10*3/uL MPV 11.5 (9.4-12.3) fL Immature Gran % (Auto) 0.5 H (0.0-0.4) % Neut % (Auto) 80.6 H (45-73) % Lymph % (Auto) 11.3 L (20-40) % [place]oul[place] % (Auto) 5.5 (2-11) % Eos % (Auto) 1.7 (0-4) % Baso % (Auto) 0.4 (0-2) % Lymph # (Auto) 1.4 (1.2-4.9) X10*3/uL [place] # (Auto) 0.7 (0.1-1.2) X10*3/uL Eos # (Auto) 0.2 (0.0-0.4) X10*3/uL Baso # (Auto) 0.1 (0.0-0.2) X10*3/uL Abs Immat Gran (auto) 0.06 H (0.00-0.03) X10*3/uL Absolute Neuts (auto) 10.2 H (2.0-8.3) x10*3/uL Absolute Nucleated RBC 0.000 (0.0-0.012) X10*3/uL Nucleated RBC % (auto) 0.0 (0.0-0.2) /100WBC Sodium 142 (135-145) mmol/L Potassium 3.7 (3.3-5.1) mmol/L Chloride 108 (96-108) mmol/L Carbon Dioxide 25 (22-29) mmol/L Anion Gap 13 (12-20) BUN 23 H (9-16) mg/dL Creatinine 0.91 (0.5-1.4) mg/dL Estim Creat Clear Calc 51.8 Estimated GFR > 60 Random Glucose 194 H (60-115) mg/dL Calcium 9.2 (8.4-10.2) mg/dL Troponin I High Sens 4.4 (<3.5-17.0) ng/L Independent Interpretation I performed an independent interpretation of an: EKG (sinus 70 incomplete RBBB, no st or twave changes) Tests considered The following testing was considered but not selected: CT of head was considered but patients dizziness improved Chronic Conditions Patient?s care impacted by: Diabetes and Hypertension Discharge Plan Discharge Clinical Impression: Dizziness, Near syncope Patient Disposition: Home, Self-Care Instructions: Lightheadedness (ED), Near Syncope (ED) Prescriptions: No Action (DME) incontinence wipes See Rx Instructions .Route .MEDSUPPLY Qty: 300 0RF Rx Instructions: As directed montelukast 10 mg tablet 10 mg PO BEDTIME Qty: 90 3RF albuterol sulfate 2.5 mg /3 mL (0.083 %) solution for nebulization 2.5 mg inhalation Q6H PRN (Reason: for wheezing) Qty: 150 11RF amlodipine 5 mg tablet 5 mg PO DAILY Qty: 90 2RF (DME) DIABETIC SHOES See Rx Instructions .Route .MEDSUPPLY Qty: 1 0RF Rx Instructions: As directed simvastatin 20 mg tablet 20 mg PO BEDTIME Qty: 90 1RF aspirin 81 mg tablet,chewable 81 mg PO DAILY Qty: 90 2RF metformin 500 mg tablet 500 mg PO DAILY Qty: 90 0RF carvedilol 6.25 mg tablet 6.25 mg PO BID Qty: 180 0RF losartan 50 mg tablet 50 mg PO DAILY Qty: 90 1RF levothyroxine 125 mcg tablet 125 mcg PO DAILY Qty: 90 1RF Trelegy Ellipta 200-62.5-25 mcg blister with device 1 inh inhalation DAILY 30 Days Qty: 60 12RF pantoprazole 20 mg tablet,delayed release (DR/EC) 20 mg PO DAILY Qty: 30 0RF (DME) blood-glucose meter [FreeStyle Lite Meter] Kit See Rx Instructions .MEDSUPPLY Qty: 1 0RF Rx Instructions: test daily cholecalciferol (vitamin D3) 25 mcg (1,000 unit) capsule 25 mcg PO DAILY albuterol sulfate 90 mcg/actuation HFA aerosol inhaler 2 puff inhalation Q6H PRN (Reason: shortness of breath or wheezing) 30 Days Qty: 8.5 11RF (DME) nebulizers Misc See Rx Instructions .Route Rx Instructions: As directed sertraline 100 mg tablet 50 mg PO DAILY tumeric PO DAILY Trelegy Ellipta 200-62.5-25 mcg blister with device 1 inh inhalation DAILY 30 Days Qty: 60 12RF ibuprofen 600 mg tablet 600 mg PO PRN Saccharomyces boulardii [Daily Probiotic (S. boulardii)] 250 mg capsule 5,000 mmu cells PO DAILY ascorbic acid (vitamin C) 500 mg capsule PO ipratropium-albuterol 0.5 mg-3 mg(2.5 mg base)/3 mL solution for nebulization 3 ml inhalation Q6H PRN (Reason: wheezing) Qty: 90 0RF azelastine 137 mcg (0.1 %) aerosol,spray 2 spray intranasal BID 30 Days Qty: 30 6RF Rx Instructions: administer into each nostril fluticasone propionate 50 mcg/actuation spray,suspension 2 spray intranasal DAILY 30 Days Qty: 15.8 11RF azelastine-fluticasone [Dymista] 137-50 mcg/spray spray,non-aerosol 1 spray intranasal BID Qty: 23 6RF Rx Instructions: administer into each nostril benzonatate 200 mg capsule 200 mg PO BID PRN (Reason: cough) 30 Days Qty: 30 6RF memantine 28 mg capsule,sprinkle,ER 24hr 28 mg PO DAILY 30 Days Qty: 30 6RF Referrals: Edu Agee MD [Primary Care Provider] - 5 days Print Language: Faroese
[2023-08-16 14:27] LABS: MANUAL DIFF FLAG NO
[2023-08-16 14:31] LABS: Basophils Absolute Auto 0.1 X10*3/uL (0.0-0.2); Basophils Percent Auto 0.4 % (0-2); Eosinophils Absolute Auto 0.2 X10*3/uL (0.0-0.4); Eosinophils Percent Auto 1.7 % (0-4); Hematocrit 36.7 % (37.0-47.0); Hemoglobin 12.1 g/dl (12.0-16.0); Imm Gran Abs Auto 0.06 X10*3/uL (0.00-0.03); Imm Gran Pct Auto 0.5 % (0.0-0.4); Lymphocytes Absolute Auto 1.4 X10*3/uL (1.2-4.9); Lymphocytes Percent Auto 11.3 % (20-40); Mean Corpuscular Hemoglobin 28.7 pg (27.0-33.0); Mean Corpuscular Volume 87.2 fL (80.0-98.0); Mean Platelet Volume 11.5 fL (9.4-12.3); Monocytes Absolute Auto 0.7 X10*3/uL (0.1-1.2); Monocytes Percent Auto 5.5 % (2-11); Neutrophils Absolute Auto 10.2 x10*3/uL (2.0-8.3); Neutrophils Percent Auto 80.6 % (45-73); Platelet Count 247 X10*3/uL (160-400); Red Blood Count 4.21 X10*6/uL (4.20-5.50); Red Cell Distribution Width 14.6 % (11.0-16.0); White Blood Count 12.6 X10*3/uL (4.8-10.8)
[2023-08-16 14:41] LABS: Anion Gap 13 (12-20); Blood Urea Nitrogen 23 mg/dL (9-16); Calcium 9.2 mg/dL (8.4-10.2); Carbon Dioxide 25 mmol/L (22-29); Chloride 108 mmol/L (96-108); Creatinine Clr Calc Pharmacy 51.8; Estimated Glomerular Filt Rate > 60; Glucose Random 194 mg/dL (60-115); Potassium 3.7 mmol/L (3.3-5.1); Sodium 142 mmol/L (135-145)
[2023-08-16 14:49] LABS: Troponin-I High Sensitivity 4.4 ng/L (<3.5-17.0)
--- NOTE | 2023-08-16 15:21 | MHC.EDTECH ---
this tech took over care @ 1500, when checking in on pt they were sleeping, with equal chest rise present
[2023-08-16 16:32] VITALS: BP 116/69; PULSE 73; RESP 15; TEMP 36.7; O2SAT 96
[2023-08-16 17:44] VITALS: BP 116/67; PULSE 73; RESP 18; TEMP 36.7; O2SAT 96
== END 2023-08-16 17:45 | disposition home or self-care (01) ==
PROVIDERS: Emergency Provider Emergency Medicine; PCP Internal Medicine
DX: R55 Syncope and collapse (principal); J44.9 Chronic obstructive pulmonary disease, unspecified; Z79.899 Other long term (current) drug therapy
CPT/HCPCS: 36415; 80048; 84484; 85025; 93005; 99283; 99284

== ENCOUNTER → 2023-08-16 13:59 | Outpatient (BNV) | payer OTHER, SELFPAY | PROVIDERS: Emergency Provider Emergency Medicine; PCP Internal Medicine; Visit Provider Internal Medicine Cardiovascular Disease | DX: R94.31 Abnormal electrocardiogram [ECG] [EKG] (principal) | CPT/HCPCS: 93010 ==

== ENCOUNTER 2023-08-29 07:49 | Outpatient (REF) | payer OTHER, SELFPAY ==
[2023-08-29 08:26] LABS: Hematocrit 38.2 % (37.0-47.0); Hemoglobin 12.3 g/dl (12.0-16.0); Mean Corpuscular HGB Conc 32.2 g/dl (31.0-35.0); Mean Corpuscular Hemoglobin 28.3 pg (27.0-33.0); Mean Platelet Volume 11.4 fL (9.4-12.3); Platelet Count 290 X10*3/uL (160-400); Red Blood Count 4.34 X10*6/uL (4.20-5.50); Red Cell Distribution Width 14.5 % (11.0-16.0); White Blood Count 9.4 X10*3/uL (4.8-10.8)
[2023-08-29 08:30] LABS: Appearance Urine Clear; Color Urine Yellow; Glucose Urine UA Negative (Negative); Leukocyte Esterase Urine Moderate (2+) (Negative); Nitrite Urine Negative (Negative); UMIC TRIGGER UA YES; Urine Blood Negative (Negative); Urine Ketones Negative (Negative); Urine Protein Negative (Neg-Trace)
[2023-08-29 08:46] LABS: Bacteria Urine None Seen (None Seen); Hyaline Casts Urine 0-2 /LPF (0-2); RBC Urine 0-2 /HPF (0-2); Squamous Epithelial Cell Urine 0-2 /HPF (0-2); WBC Urine 21-50 /HPF (0-5)
[2023-08-29 09:04] LABS: Alanine Aminotransferase 18 U/L (0-31); Albumin Level 3.9 g/dL (3.5-5.0); Alkaline Phosphatase 95 U/L (39-117); Anion Gap 15 (12-20); Aspartate Amino Transferase 18 U/L (5-31); Bilirubin Direct 0.1 mg/dL (0.0-0.5); Bilirubin Total 0.5 mg/dL (0.0-1.0); Blood Urea Nitrogen 18 mg/dL (9-16); Calcium 9.5 mg/dL (8.4-10.2); Carbon Dioxide 26 mmol/L (22-29); Chloride 108 mmol/L (96-108); Cholesterol 217 mg/dL (<200); Estimated Glomerular Filt Rate > 60; Glucose Random 113 mg/dL (60-115); HDL Cholesterol 42 mg/dL (>40); LDL Cholesterol Calculated 150 mg/dL (<100); Potassium 3.9 mmol/L (3.3-5.1); Sodium 145 mmol/L (135-145); Total Protein 7.5 g/dL (6.5-8.0); Triglycerides 127 mg/dL (<150)
[2023-08-29 09:23] LABS: Thyroid Stimulating Hormone 0.13 uIU/mL (0.32-4.0)
== END 2023-08-29 07:50 | disposition home or self-care (01) ==
LOC: HO.LAB 07:49
PROVIDERS: PCP Internal Medicine; Visit Provider Internal Medicine
DX: E11.9 Type 2 diabetes mellitus without complications (principal); I10 Essential (primary) hypertension; J44.9 Chronic obstructive pulmonary disease, unspecified; R53.83 Other fatigue
CPT/HCPCS: 36415; 80048; 80061; 80076; 81001; 84443; 85027

== ENCOUNTER 2023-09-01 09:23 | Outpatient (AMB) | payer OTHER, SELFPAY ==
--- NOTE | 2023-09-01 09:35 | A.OFFPC_ITS ---
Vital Signs 09/01/23 09:36 Height 5 ft 3 in Weight 153 lb 8 oz BMI 27.2 BP 140/70 H Blood Pressure Location Lt brachial Position Sitting Pulse 77 Pulse Source Pulse Oximeter Pulse Oximetry (%) 95 Oxygen Delivery Method Room Air Intake Visit Reasons: ED FOLLOW UP Intake Note: Patient is here to follow-up after a visit the emergency department at [facility] on 08/16/23 Distributed Generation Project Manager Required: Yes Distributed Generation Project Manager Language: Brazilian Information Interpreted: non-clinical & clinical Mine Geologist: Not Required per policy Accompanied by: Self / Same As Patient Allergies regadenoson [From Lexiscan] Adverse Reaction (Intermediate, Verified 09/01/23 09:36) Chest Pain Tobacco use date assessed: 09/01/23 Fall risk assessment: No Falls in past year Last assessed Fall Risk: 09/01/23 Dental Screening Dental Screen Date: 04/26/23 HPI HPI Comments History of Present Illness Details 73 y/o female patient who presents to [facility] today for ED follow. Pt was admitted at [facility] for an episode of dizziness, SOB and near Syncope. DOS: 08/16/23 and DOD: same. Pt was discharged home in good condition. Today has no concerns. [facility] Medical History Non-rheumatic aortic stenosis History of neuropathy Chronic ankle pain Pleuritic chest pain Chronic allergic rhinitis History of COVID-19 Pre-op evaluation Encounter to establish care (~02/22/21) Asthma-COPD overlap syndrome COVID-19 ALISA (obstructive sleep apnea) Asthma Surgical History History of surgery on lower extremity History of back surgery History of thyroid surgery Family History Father Diabetes HTN (hypertension) Heart disease Mother Diabetes HTN (hypertension) Other Asthma Social History Household Members: None Housing: Apartment Alcohol intake: former Patient Tobacco Use Status: Former Tobacco user Tobacco use type: Cigarette Years Smoked: 10 years e-Cigarette/Vaping Use: Never Used Second Hand Smoke Exposure: No service: No Current occupational status: disabled Current occupational exposures/hazards: No Cognitive needs: Yes (cane) Hearing needs: No Vision needs: Yes Questionnaire Thrive Questionnaire Date Thrive assessed: 04/26/23 ROSS-7 AMB Questionnaire ROSS-7 Date ROSS - 7 assessed: 04/26/23 Source: Developed by Drs. Moncho Pacheco, Ade Soto, Bill Goldman and colleagues, with an educational lisa from [employer]. Review of Systems Const All systems reviewed & are unremarkable except as noted in HPI and below Physical exam (Primary Care) Vital Signs: Last Vital Signs Pulse 77 09/01/23 09:36 BP 140/70 H 09/01/23 09:36 Pulse Ox 95 09/01/23 09:36 Oxygen Delivery Method Room Air 09/01/23 09:36 BMI result Body Mass Index 27.2 Tobacco/Smoking Status: Tobacco use Status Tobacco use date assessed 09/01/23 09/01/23 09:43 Patient Tobacco Use Status Former Tobacco user 09/01/23 09:43 Tobacco use type Cigarette 09/01/23 09:43 e-Cigarette/Vaping Use Never Used 09/01/23 09:43 Thrive Assessment: Date of Thrive Assessment Date Thrive assessed 04/26/23 09/01/23 09:43 Const General: comfortable and no acute distress Nutritional Appearance: obese Orientation/consciousness: patient oriented x3 Resp Effort & Inspection: normal respiratory effort and able to speak in complete sentences Auscultation: clear to auscultation bilaterally, no crackles, no rales, no rhonchi and no wheezes Cardio Rate: regular rate Rhythm: regular rhythm Neuro General: patient oriented x3, gait normal and moves all extremities Psych Speech and movement: Normal speech and movement present Vital Signs: Last Vital Signs Pulse 77 09/01/23 09:36 BP 140/70 H 09/01/23 09:36 Pulse Ox 95 09/01/23 09:36 Oxygen Delivery Method Room Air 09/01/23 09:36 BMI result Body Mass Index 27.2 Const General: comfortable and no acute distress Nutritional Appearance: obese Orientation/consciousness: patient oriented x3 Resp Effort & Inspection: normal respiratory effort and able to speak in complete sentences Auscultation: clear to auscultation bilaterally, no crackles, no rales, no rhonchi and no wheezes Cardio Rate: regular rate Rhythm: regular rhythm Neuro General: patient oriented x3, gait normal and moves all extremities Psych Speech and movement: Normal speech and movement present Assessment and Plan Assessment & Plan (1) Dizziness: Code(s): R42 - Dizziness and giddiness Plan: Symptoms have since been resolved. F/U with PCP as scheduled. Coding Level of Care Code Est Pt Level 4 (11220) Diagnoses Dizziness R42 Comment Spent 20 minutes reviewing hospital notes and labs.
[2023-09-01 09:36] VITALS: BP 140/70; PULSE 77; O2SAT 95; BMI 27.2
== END 2023-09-01 09:58 | disposition home or self-care (01) ==
PROVIDERS: PCP Internal Medicine; Visit Provider Nurse Practitioner Family
DX: R42 Dizziness and giddiness (principal)
CPT/HCPCS: 99214

== ENCOUNTER 2023-09-07 09:56 | Outpatient (AMB) | payer OTHER, SELFPAY ==
[2023-09-07 09:58] VITALS: BP 142/72; PULSE 82; O2SAT 97; BMI 27.3
--- NOTE | 2023-09-07 09:58 | MHC.OFFVIS ---
Vital Signs 09/07/23 09:58 Height 5 ft 3 in Weight 154 lb BMI 27.3 BP 142/72 H Blood Pressure Location Rt brachial Position Sitting Pulse 82 Pulse Source Doppler Pulse Oximetry (%) 97 Oxygen Delivery Method Room Air Intake Visit Reasons: Cough follow-up Allergies regadenoson [From Lexiscan] Adverse Reaction (Intermediate, Verified 09/07/23 10:03) Chest Pain HPI Comments Details: The patient is a 73-year-old woman with a known history of asthma in addition to obstructive sleep apnea. Apparently she was diagnosed with sleep apnea about a year ago. She has underlying cardiovascular risk factor with high blood pressure and diabetes. She did use the CPAP is very hard for her to get used to it. She would have episodes which she will wake up short of breath. Therefore after multiple times including decreasing the pressure is she return the CPAP. She continues to have daytime drowsiness and also has an elevated Watson score of 10/24. She also has a history of asthma. She had been on Advair before in this was switched over to Wixela and has not had any significant improvement in breathing. At this time will try to optimize respiratory therapy. Will likely made her respiratory status worse with such was diagnosed with COVID-19 infection and subsequently COVID-19 pneumonia about a month or 2 ago. She did require multiple courses of antibiotics initially prednisone. She still has shortness of breath with activity. Mild in severity. Also has a nonproductive cough that is improved. 03/07/2022 the patient is here for pulmonary follow-up visit. She is not recovering after having flu-like symptoms and worsening respiratory symptoms. He has been having increasing chest tightness and wheezing. Moderate severity. She was supposed to be on Trelegy but she has been getting the wrong inhaler to the pharmacy. A resend the prescription to the pharmacy. Will make sure that she is on the right medication. In the meantime I will request that she undergo a chest x-ray and also blood work to assess for any potential triggers that may be exacerbating her obstructive airway disease. Because of her breathing she had a hard time tolerating her CPAP. But now that she is feeling better her cough is a little better after having been sick see starting to go back to using it regularly. 06/13/2022 the patient is here for a pulmonary follow-up visit. The patient now is recovering after having COVID. Her major issue right now is her memory. She seems to not be able to remember things as well after COVID. She recently had an MRI and is currently being worked up for that. In the meantime she is still struggling with her CPAP. She does not use it regularly. I did download the data and she has used it only a few times. When she does use it however seems like the CPAP pressures are too low. She does want to go higher this times is is hard for her to tolerate however. Therefore she is going to continue with CPAP of 8 cm and will reassess her usage and also heart response to therapy. I did request she can bring it in to the next visit so we can also adjusted for her. In addition to this, the patient having some a per the sciatic chest discomfort. Primarily her side. Waxing waning. Pleuritic in nature. At this point she does not have it. I did recommend that if it happens again she can always come in for chest x-ray. She has also been noticing some wheezing. Although she has not been taking the Trelegy regularly. She needs to take a Trelegy regularly and also uses Singulair. Her wheezing may just be a transition into the spring. We can also consider on the chin on antihistamine therapy. However, like to try to avoid polypharmacy at this time. If the patient has worsening she is to call the office for further recommendations. 09/23/2022 patient is here for pulmonary follow-up visit. The patient has recovered well after having COVID. She is back to using her respiratory therapy as prescribed. The patient also has been using her CPAP. The CPAP therapy continues to be effective in beneficial. She does use it for more than 4 hours a night. Now however, now she is having some issues with back discomfort send reticular and neuropathic discomfort. This is affecting her sleep as it is hurting her she goes to bed. He is keeping her up and is affecting her sleep quality. We did talk about potentially treating her with gabapentin. The patient states that she had been on this before and she tolerated it well. Therefore will go ahead and start her on 300 mg at nighttime to help with her sleep and also with discomfort that is affecting her sleep. Hopefully with this she will continue using the CPAP more effectively. She continues use her respiratory medicines. She does not required her short-acting beta agonists at this time. 02/03/2023 the patient is here for a pulmonary follow-up visit. Since her last spoke the patient did have her nuclear Lexiscan. When she was getting the injection she did develop significant back pain and chest pain. It was moderate to severe. Her symptoms did subside. Likely just an adverse reaction to the medicine. Respiratory gonsalves she is doing well now. She she does continue with current therapy. The patient has been using her CPAP. The CPAP therapy continues to be affecting beneficial. If she did get a prescription for gabapentin but she stopped using it because it was causing her to have as significant appetite at nighttime and she does not want he gained any weight. Although now she is taking Zoloft and this seems to be helping her sleep as well. A she does complaint of a cough and also postnasal drip. Will go ahead and prescribe her Dymista with the hope of helping her with a upper respiratory complaints. His I also gave her prescription for Tessalon Perles that she can use as needed for her cough. Although it may not be covered. I did provide her with good Rx card that she can use at the local pharmacy. 03/31/2023 the patient is here for a pulmonary follow-up visit. The patient is complaining still of a cough. Still complains of nonproductive cough which is moderate severity. Does bother her. The patient has tried [id number] medications without any relief. We did try saline Dymista to the pharmacy but was not cover. She has currently not using any nasal sprays. In addition to that she has not using the CPAP regularly. Patient will monitor closely for any worsening daytime drowsiness. She will continue to try positional therapy. If she develops worsening daytime drowsiness or increased cardiovascular risk factors then repeating sleep study may be helpful. The Trelegy inhaler has been helping her asthma. She continued to use it daily. She has not required her rescue inhaler or nebulizer. Also to note, her last chest x-ray was back in December 2022 and was without any acute disease. 09/08/2023 the patient is here for a pulmonary follow-up visit. Still complaining of cough. Cough tends to be at times productive at times not productive. Moderate severity. Feels like it is gets worse when she is trying not to cough like at sikh. She does taking fuqm-[id number] medication without any relief she has significant upper airway cough syndrome significant postnasal drip and rhinitis. She did try the nasal sprays but cause bleeding. Therefore she stopped them. The patient has been using the Trelegy inhaler and her respiratory symptoms have been better. Therefore, I believe her cough is mainly from a upper airway cough syndrome in addition to potentially reflux disease. She does have underlying reflux disease will go ahead and request a barium swallow this time. She is already on PPI. We did talk about the reflux diet and also sleeping elevated. In the meantime she does use a CPAP. The CPAP therapy has been affecting beneficial. She is using the P 10 nasal pillows. She does have a very dry mouth. I explained to her that she needs to use a chinstrap. She is going to start using 1. Hopeful that helps with the adverse effects. In addition to that she should provide nasal rinsing prior to the CPAP in order to minimize the postnasal drip in the irritation. [facility] Medical History (Updated 09/07/23 @ 21:35 by Osmar Ayala MD) Chronic cough Non-rheumatic aortic stenosis History of neuropathy Chronic ankle pain Pleuritic chest pain Chronic allergic rhinitis History of COVID-19 Pre-op evaluation Encounter to establish care (~02/22/21) Asthma-COPD overlap syndrome COVID-19 ALISA (obstructive sleep apnea) Asthma Surgical History History of surgery on lower extremity History of back surgery History of thyroid surgery Family History Father Diabetes HTN (hypertension) Heart disease Mother Diabetes HTN (hypertension) Other Asthma Social History Household Members: None Housing: Apartment Alcohol intake: former Patient Tobacco Use Status: Former Tobacco user Tobacco use type: Cigarette Years Smoked: 10 years e-Cigarette/Vaping Use: Never Used Second Hand Smoke Exposure: No service: No Current occupational status: disabled Current occupational exposures/hazards: No Cognitive needs: Yes (cane) Hearing needs: No Vision needs: Yes Review of Systems Const Denies body aches, Denies chills, Reports difficulty sleeping, Denies fever(s) and Denies headache(s) Eyes Denies change in vision ENT Denies dizziness, Denies otalgia, Denies headache(s), Denies nasal discharge, Denies sinus pain and Denies sore throat Card Denies chest pain, Denies edema, Denies lightheadedness and Denies dyspnea Resp Reports cough, Denies hemoptysis and Denies dyspnea Denies hematuria, Denies dysuria, Denies flank pain and Reports urinary incontinence Musc Reports back pain Skin/Breast Reports as per HPI and Denies rash Neuro Reports burning sensations, Denies dizziness, Denies headache(s), Reports memory loss, Reports radicular pain and Reports paresthesias Psych Reports memory loss Physical Exam Vital Signs: Last Vital Signs Pulse 82 09/07/23 09:58 BP 142/72 H 09/07/23 09:58 Pulse Ox 97 09/07/23 09:58 Oxygen Delivery Method Room Air 09/07/23 09:58 BMI result Body Mass Index 27.3 Const General: alert Orientation/consciousness: patient oriented x3 Neck Neck: Yes normal visual inspection, Yes full ROM and Yes no lymphadenopathy Chest Chest palpation & inspection: normal inspection of the chest Resp Effort & Inspection: normal respiratory effort Auscultation: no rales, no rhonchi, no wheezes and diminished lung sounds Cardio Jugular venous distension: no JVD Rate: regular rate Rhythm: regular rhythm and other (ectopy) Heart sounds: S1 normal heart sound present and S2 normal heart sound present Peripheral pulses: Peripheral pulses 2+ throughout GI Inspection: Yes normal to inspection Palpation (GI): Soft to palpation and nontender Auscultation: normal bowel sounds Skin General skin exam: rashes and/or lesions noted Neuro General: patient oriented x3 Extrem Other: Trace edema around right lateral malleolus General: Yes normal to inspection Psych Appearance: grossly normal Mental Status: mental status grossly normal Speech and movement: Normal speech and movement present Assessment & Plan Assessment & Plan (1) Asthma-COPD overlap syndrome: Code(s): J44.9 - Chronic obstructive pulmonary disease, unspecified Category: Medical (2) ALISA (obstructive sleep apnea): Code(s): G47.33 - Obstructive sleep apnea (adult) (pediatric) Category: Medical (3) Chronic allergic rhinitis: Code(s): J30.9 - Allergic rhinitis, unspecified Category: Medical (4) GERD (gastroesophageal reflux disease): Code(s): K21.9 - Gastro-esophageal reflux disease without esophagitis Category: Medical Qualifiers: Esophagitis presence: without esophagitis Qualified Code(s): K21.9 - Gastro-esophageal reflux disease without esophagitis (5) Chronic cough: Code(s): R05.3 - Chronic cough Category: Medical Plan continue CPAP, p10, needs to use chin strap continue Trelegy cont singular JEANNINE as needed stopped Gabapentin stop Astelin stop Fluticasone ipratropium nasal spray as needed CXR Barium swallow Tessalon pearls as needed Follow-up in 6 months Orders: Orders XR chest 2V Today K21.9 - Gastro-esophageal reflux disease without esophagitis, R05.3 - Chronic cough [place] barium swallow Today K21.9 - Gastro-esophageal reflux disease without esophagitis, R05.3 - Chronic cough Medications: New ipratropium bromide administer into each nostril 2 sprays intranasal TID PRN 15 mL 6RF allergy symptoms Refilled benzonatate 200 mg PO BID PRN 30 caps 6RF cough 30 days Coding Level of Care Code Est Pt Level 4 (11117) Diagnoses Asthma-COPD overlap syndrome J44.9 ALISA (obstructive sleep apnea) G47.33 Chronic allergic rhinitis J30.9 Gastroesophageal reflux disease without esophagitis K21.9 Esophagitis presence: without esophagitis Chronic cough R05.3 Time Spent (min) 17
== END 2023-09-07 10:23 | disposition home or self-care (01) ==
PROVIDERS: PCP Internal Medicine; Visit Provider Hospitalist
DX: J44.9 Chronic obstructive pulmonary disease, unspecified (principal); G47.33 Obstructive sleep apnea (adult) (pediatric); J30.9 Allergic rhinitis, unspecified; K21.9 Gastro-esophageal reflux disease without esophagitis; R05.3 Chronic cough
CPT/HCPCS: 99214

== ENCOUNTER → 2023-09-07 09:56 | Outpatient (BNVA) | payer OTHER, SELFPAY | PROVIDERS: PCP Internal Medicine; Visit Provider Hospitalist | DX: G47.33 Obstructive sleep apnea (adult) (pediatric) (principal); J44.9 Chronic obstructive pulmonary disease, unspecified; J30.9 Allergic rhinitis, unspecified; K21.9 Gastro-esophageal reflux disease without esophagitis; R05.3 Chronic cough; Z99.89 Dependence on other enabling machines and devices | CPT/HCPCS: 99212 ==

== ENCOUNTER 2023-09-13 13:00 | Outpatient (RCR) | payer OTHER, SELFPAY | END 2023-10-13 11:16 | disposition home or self-care (01) | LOC: HO.PT 13:00 | PROVIDERS: PCP Internal Medicine; Visit Provider Physician Assistant | DX: M70.61 Trochanteric bursitis, right hip (principal); M53.3 Sacrococcygeal disorders, not elsewhere classified | CPT/HCPCS: 97110; 97140; 97162; 97530; 97535 ==

== ENCOUNTER 2023-09-14 15:04 | Outpatient (REF) | payer OTHER, SELFPAY ==
--- NOTE | ~2023-09-14 | XR_ITS ---
EXAMINATION: XR CHEST CLINICAL INFORMATION: Gastroesophageal reflux disease. Patient reports cough and spitting up blood. COMPARISON: Prior chest December 2022 TECHNIQUE: 2 views of the chest were obtained. FINDINGS: There is calcification of the dorsal aorta unchanged. Cardiomediastinal silhouette otherwise normal. Lungs clear. No effusions. There is spondylosis of the dorsal spine. XR/XR chest 2V IMPRESSION: No acute disease. No change.
== END 2023-09-14 15:05 | disposition home or self-care (01) ==
LOC: HO.XRAY 15:04
PROVIDERS: PCP Internal Medicine; Visit Provider Hospitalist
DX: K21.9 Gastro-esophageal reflux disease without esophagitis (principal); R05.3 Chronic cough
CPT/HCPCS: 71046

== ENCOUNTER 2023-09-19 09:00 | Day surgery (SDC) | payer OTHER, SELFPAY ==
[2023-09-15 13:39] VITALS: BMI 27.1
--- NOTE | 2023-09-18 10:35 | P.CONAN_ITS ---
Documented by User: Ines Marquis NP 09/18/23 10:41 HPI - Anesthesia Eval Consult details Narrative: 73yo F for Cystoscopy Bladder Botox Injection [place] [facility] [place]. Last visit 08/2023 - asthma stable, chronic upper respiratory cough [place] [facility] [place] Last visit - stable, MIBI ok. 1 year f/u [facility] Active Problems Active Problems: All Active Problems OAB (overactive bladder) (Acute) Sacroiliac joint dysfunction of right side (Acute) Trochanteric bursitis, right hip (Acute) Trigger finger, left (Acute) Degenerative joint disease of acromioclavicular joint (Acute) Right shoulder pain (Acute) Lower urinary tract symptoms (Acute) Degenerative joint disease, foot, left (Acute) Right leg pain (Acute) Bilateral hand pain (Acute) Discoloration of skin (Acute) Bunion (Acute) Osteopenia (Acute) Adult general medical exam (Acute) RUQ pain (Acute) Fatigue (Acute) Cognitive dysfunction (Acute) Mixed incontinence urge and stress (Acute) Urinary incontinence (Acute) GERD (gastroesophageal reflux disease) (Acute) Forgetfulness (Acute) Ankle swelling (Acute) Aortic stenosis (Acute) Rash and nonspecific skin eruption (Acute) Precordial chest pain (Acute) Intermittent chest pain (Acute) Hyperlipidemia (Acute) History of COVID-19 (Acute) Hypothyroidism (Acute) DM type 2 (diabetes mellitus, type 2) (Acute) Essential hypertension (Acute) Chronic cough (Acute) Non-rheumatic aortic stenosis (Acute) History of neuropathy (Acute) Chronic ankle pain (Acute) Chronic allergic rhinitis (Acute) Asthma-COPD overlap syndrome (Acute) ALISA (obstructive sleep apnea) (Acute) Asthma (Acute) Past Medical History Medical History Elevated cholesterol HTN (hypertension) Type 2 diabetes mellitus Cognitive dysfunction GERD (gastroesophageal reflux disease) Osteopenia Hypothyroid Chronic cough History of neuropathy Chronic ankle pain Non-rheumatic aortic stenosis Pleuritic chest pain Chronic allergic rhinitis Asthma-COPD overlap syndrome ALISA (obstructive sleep apnea) Asthma Family History Family History Father Diabetes HTN (hypertension) Heart disease Mother Diabetes HTN (hypertension) Other Asthma Surgical History Surgical History History of surgery on lower extremity History of back surgery History of thyroid surgery Social History Social History Household Members: None Housing: Apartment Alcohol intake: former Patient Tobacco Use Status: Former Tobacco user Tobacco use type: Cigarette Years Smoked: 10 years e-Cigarette/Vaping Use: Never Used Second Hand Smoke Exposure: No Are you DNR?: No Advance Directives: No Advance Directives Information Provided: Yes service: No Current occupational status: disabled Current occupational exposures/hazards: No Cognitive needs: Yes (cane) Hearing needs: No Vision needs: Yes Meds Allergies Allergy/AdvReac Type Severity Reaction Status Date / Time regadenoson [From [email or web address]] AdvReac Intermediate Chest Pain Verified 09/07/23 10:03 Home Medications ?Medication ?Instructions ?Recorded ?Confirmed ?Last Taken ?Type nebulizers 11/11/21 08/05/23 Unknown History Saccharomyces boulardii 250 mg 5,000 mmu cells PO DAILY 04/06/22 09/15/23 Unknown History capsule (Daily Probiotic (S. boulardii)) ascorbic acid (vitamin C) 500 mg 500 mg PO DAILY 04/06/22 09/15/23 Unknown History capsule ibuprofen 600 mg tablet 600 mg PO Q6H PRN Pain 04/06/22 09/15/23 09/08/23 History tumeric 1 tab PO DAILY 07/06/22 09/15/23 Unknown History cholecalciferol (vitamin D3) 25 25 mcg PO DAILY 10/10/22 09/15/23 Unknown History mcg (1,000 unit) capsule sertraline 100 mg tablet 50 mg PO DAILY 12/21/22 09/15/23 Unknown History Exam Height,Weight and Vital Signs: Height 5 ft 3 in Weight 69.4 kg Pertinent Lab Results Pertinent Lab Results: Laboratory Tests 08/29/23 07:56 WBC 9.4 Hgb 12.3 Hct 38.2 Plt Count 290 Sodium 145 Potassium 3.9 Chloride 108 Carbon Dioxide 26 BUN 18 H Creatinine 0.69 Narrative Narrative: EKG 07/2023 Vent. Rate : 070 BPM Atrial Rate : 070 BPM P-R Int : 126 ms QRS Dur : 088 ms QT Int : 406 ms P-R-T Axes : 067 -11 096 degrees QTc Int : 438 ms Normal sinus rhythm Minimal voltage criteria for LVH, may be normal variant ( R in aVL ) Nonspecific T wave abnormality Abnormal ECG When compared with ECG of 16-MAR-2021 15:26, No significant change was found NM cardiolite stress test 11/2022 Impression: 1. Myocardial perfusion imaging study shows probably normal myocardial perfusion. 2. Gated LVEF is 66% during stress and 53% during rest. 3. Transient ischemic dilatation not present. ECHO 2021 Conclusions: - 1. Normal LV systolic function with pseudonormal filling pattern 2. Moderately dilated left atrium 3. Mild aortic stenosis 4. Normal RV systolic pressure 5. No pericardial effusion Assessment and Plan Assessment Anesthesia Assessment: Chart Reviewed Documented by User: Clara Cuba MD 09/19/23 12:46 [facility] Past Medical History Medical History Elevated cholesterol HTN (hypertension) Type 2 diabetes mellitus Cognitive dysfunction GERD (gastroesophageal reflux disease) Osteopenia Hypothyroid Chronic cough History of neuropathy Chronic ankle pain Non-rheumatic aortic stenosis Pleuritic chest pain Chronic allergic rhinitis Asthma-COPD overlap syndrome ALISA (obstructive sleep apnea) Asthma Family History Family History Father Diabetes HTN (hypertension) Heart disease Mother Diabetes HTN (hypertension) Other Asthma Surgical History Surgical History History of surgery on lower extremity History of back surgery History of thyroid surgery History of Problems with Anesthesia: No Social History Social History Household Members: None Housing: Apartment Alcohol intake: former Patient Tobacco Use Status: Former Tobacco user Tobacco use type: Cigarette Years Smoked: 10 years e-Cigarette/Vaping Use: Never Used Second Hand Smoke Exposure: No Are you DNR?: No Advance Directives: No Advance Directives Information Provided: Yes service: No Current occupational status: disabled Current occupational exposures/hazards: No Cognitive needs: Yes (cane) Hearing needs: No Vision needs: Yes Meds Allergies Allergy/AdvReac Type Severity Reaction Status Date / Time regadenoson [From [email or web address]] AdvReac Intermediate Chest Pain Verified 09/07/23 10:03 Home Medications ?Medication ?Instructions ?Recorded ?Confirmed ?Last Taken ?Type nebulizers 11/11/21 08/05/23 Unknown History Saccharomyces boulardii 250 mg 5,000 mmu cells PO DAILY 04/06/22 09/15/23 Unknown History capsule (Daily Probiotic (S. boulardii)) ascorbic acid (vitamin C) 500 mg 500 mg PO DAILY 04/06/22 09/15/23 Unknown History capsule ibuprofen 600 mg tablet 600 mg PO Q6H PRN Pain 04/06/22 09/15/23 09/08/23 History tumeric 1 tab PO DAILY 07/06/22 09/15/23 Unknown History cholecalciferol (vitamin D3) 25 25 mcg PO DAILY 10/10/22 09/15/23 Unknown History mcg (1,000 unit) capsule sertraline 100 mg tablet 50 mg PO DAILY 12/21/22 09/15/23 Unknown History Exam Airway Mallampati Class: II TM Dist: >3cm Neck ROM: Limited Partial: Upper Loose/Missing/Broken Teeth: Yes and Upper Heart: RRR Lungs: CTA Assessment and Plan Assessment Anesthesia Assessment: Anesthesia Plan Discussed Final Anesthetic Review History of Problems with Anesthesia: No NPO: Yes ASA Class: III Final Preanesthetic Review: Meds/Allgs Chart Reviewed, Consent Obtained/Reviewed and Anes Risks/Benef Reviewed Patient Risk: Intermediate Procedure Risk: Low Anesthetic Plan Anesthetic Plan: MAC: Disposition: Standard PACU
[2023-09-19 09:05] VITALS: BP 147/62; PULSE 81; RESP 18; TEMP 36.9; O2SAT 98; BMI 27.3
[2023-09-19] MEDS: Lactated Ringers 1,000 ML 100 ML IVCONT (09:28)
[2023-09-19 09:34] LABS: Glucose, Whole Blood 136 mg/dL (60-115)
--- NOTE | 2023-09-19 12:52 | MHC.SHP ---
Pre-Procedural Eval Section A - 24 Hr Update-Section A only Date of Service: 09/19/23 The patient is an INPATIENT: No The patient has been examined within 24 hours of the surgical procedure. The History & Physical has been completed within 30 days and I have reviewed it.: Yes Section B - Complete if H&P > 30 days Chief Complaint: Overactive bladder Allergies: Allergies Allergy/AdvReac Type Severity Reaction Status Date / Time regadenoson [From Lexiscan] AdvReac Intermediate Chest Pain Verified 09/07/23 10:03 Plan Diagnosis/Plan: Unchanged I have reviewed the history and physical and performed a pertinent physical examination on my patient. No changes have occurred unless specified. Cysto Bladder botox injection 100 units. Time Spent With Patient Time: Total time managing care of this patient today ____ minutes.
[2023-09-19 13:23] VITALS: BP 128/60; PULSE 68; RESP 18; TEMP 36.3; O2SAT 99
[2023-09-19 13:28] VITALS: BP 126/64; PULSE 75; RESP 16; O2SAT 96
[2023-09-19 13:33] VITALS: BP 153/80; PULSE 70; RESP 16; O2SAT 97
[2023-09-19 13:38] VITALS: BP 151/58; PULSE 68; RESP 14; O2SAT 96
[2023-09-19] MEDS: Phenazopyridine HCL 200 MG TABLET PO (13:52)
[2023-09-19 13:53] VITALS: BP 145/53; PULSE 67; RESP 16; TEMP 36.4; O2SAT 97
--- NOTE | 2023-09-27 09:05 | P.OP_ITS ---
Operative Note Operative Note Date of Service: 09/19/23 Narrative: PreOperative Diagnosis: Overactive bladder Post Operative Diagnosis: Overactive bladder Procedure: Cystoscopy with injection 100 units Botox intra detrusor muscle Surgeon: Dr Colton Ledesma Anesthesia: General Procedure: After informed consent was verified the patient was brought to the operating room and placed in a supine position. Anesthesia was administered per protocol. Time out was done per protocol. Antibiotics confirmed. Cystoscopy performed with 22 Belarusian cystoscope. Bladder was emptied of urine. Urine sent for culture. Bladder was refilled. The bladder was visualized, the right and left ureteral orifices were visualized. Using 100 units of Botox mixed in 10 cc of normal saline; transurethral injections were placed into the posterior wall of the bladder. 0.5cc placed at each injection site. Injections were placed in a grid 5 across and 4 longitudinally. Injections were placed from the inferior to superior position. The bladder was drained, the cystoscope was removed. 2% lidocaine was passed transurethrally. The patient tolerated the procedure and was brought out of anesthesia and taken to the recovery room in stable condition. Drains: None
== END 2023-09-19 15:03 | disposition home or self-care (01) ==
PROVIDERS: PCP Internal Medicine; Visit Provider Urology
PROC: 3E0K8GC Introduction of Other Therapeutic Substance into Genitourinary Tract, Via Natural or Artificial Opening Endoscopic (ICD-10-PCS; CPT 52287; principal; 2023-09-19 10:50)
DX: N32.81 Overactive bladder (principal); R32 Unspecified urinary incontinence; R39.15 Urgency of urination; R39.9 Unspecified symptoms and signs involving the genitourinary system; I10 Essential (primary) hypertension; E11.9 Type 2 diabetes mellitus without complications; J45.909 Unspecified asthma, uncomplicated; E78.00 Pure hypercholesterolemia, unspecified; G47.33 Obstructive sleep apnea (adult) (pediatric); Z79.82 Long term (current) use of aspirin; Z79.899 Other long term (current) drug therapy; Z88.8 Allergy status to other drugs, medicaments and biological substances; Z87.891 Personal history of nicotine dependence; Z98.890 Other specified postprocedural states
CPT/HCPCS: 52287; 82947; 87086; J0585; J1956; J2704; J3010

== ENCOUNTER → 2023-09-19 09:00 | Outpatient (BNV) | payer OTHER, SELFPAY | PROVIDERS: PCP Internal Medicine; Visit Provider Urology | DX: N32.81 Overactive bladder (principal) | CPT/HCPCS: 52287 ==

== ENCOUNTER 2023-09-25 14:28 | Outpatient (AMB) | payer OTHER, SELFPAY ==
[2023-09-25 14:30] VITALS: BP 116/54; PULSE 78; O2SAT 98; BMI 27.8
--- NOTE | 2023-09-25 14:30 | A.OFFPC_ITS ---
Vital Signs 09/25/23 14:30 Height 5 ft 3 in Weight 157 lb 0.3 oz BMI 27.8 BP 116/54 L Blood Pressure Location Lt brachial Position Sitting Pulse 78 Pulse Source Pulse Oximeter Pulse Oximetry (%) 98 Oxygen Delivery Method Room Air Intake Visit Reasons: Low Thyroid levels/ med review Window Shade Cutter Required: No Allergies regadenoson [From Lexiscan] Adverse Reaction (Intermediate, Verified 09/25/23 15:01) Chest Pain Medication List - Last Reconciled 09/25/23 by Edu Agee MD albuterol sulfate 90 mcg/actuation 2 puffs inhalation Q6H PRN 30 days albuterol sulfate 2.5 mg (3 mL) inhalation Q6H PRN amlodipine 5 mg PO DAILY ascorbic acid (vitamin C) 500 mg PO DAILY aspirin 81 mg PO DAILY azelastine 2 sprays intranasal BID 30 days [Bed pads As directed] blood-glucose meter (FreeStyle Lite Meter kit) test daily carvedilol 6.25 mg PO BID cholecalciferol (vitamin D3) 25 mcg PO DAILY [DIABETIC SHOES As directed] fluticasone propionate 50 mcg/actuation 2 sprays intranasal DAILY 30 days [id number]-gpufrlfn 200-62.5-25 mcg (Trelegy Ellipta) 1 inh inhalation DAILY 30 days ibuprofen 600 mg PO Q6H PRN [incontinence wipes As directed] ipratropium bromide 2 sprays intranasal TID PRN ipratropium-albuterol 0.5 mg-3 mg(2.5 mg base)/3 mL 3 mL inhalation Q6H PRN levothyroxine 125 mcg PO DAILY losartan 50 mg PO DAILY memantine 28 mg PO DAILY 30 days [Metal Shower handles As directed] metformin 500 mg PO DAILY montelukast 10 mg PO BEDTIME nebulizers As directed pantoprazole 20 mg PO DAILY [pull up As directed] Saccharomyces boulardii (Daily Probiotic (S. boulardii)) 5,000 mmu cells PO DAILY [sanitary pads kotex As directed] sertraline 50 mg PO DAILY simvastatin 20 mg PO BEDTIME [tumeric 1 tab PO DAILY] Tobacco use date assessed: 09/01/23 Fall risk assessment: No Falls in past year Last assessed Fall Risk: 09/25/23 Dental Screening Dental Screen Date: 04/26/23 HPI Low Thyroid levels/ med review HPI Details 73-year-old female [facility] to discuss her chronic medical conditions. An integration specialist using the iPad was used. Recent blood work shows a suppressed TSH. Patient currently is taking 125 mcg of Synthroid. She has been noticing elevated blood sugars. Her normal blood sugars are in the range of 110-120 and recently they have been greater than 150. Patient is also complaining of pain in the right leg and hip. She has had a compound fracture in the tibia fibula and hardware inserted. Recently a part of the hardware was removed. Patient is complaining of pain especially when she stands for long durations or walks. [facility] Medical History (Updated 09/25/23 @ 15:06 by Edu Agee MD) Hypothyroidism Elevated cholesterol HTN (hypertension) Type 2 diabetes mellitus Cognitive dysfunction GERD (gastroesophageal reflux disease) Osteopenia Hypothyroid Chronic cough History of neuropathy Chronic ankle pain Non-rheumatic aortic stenosis Pleuritic chest pain Chronic allergic rhinitis Asthma-COPD overlap syndrome ALISA (obstructive sleep apnea) Asthma Surgical History History of surgery on lower extremity History of back surgery History of thyroid surgery Family History Father Diabetes HTN (hypertension) Heart disease Mother Diabetes HTN (hypertension) Other Asthma Social History Household Members: None Housing: Apartment Alcohol intake: former Patient Tobacco Use Status: Former Tobacco user Tobacco use type: Cigarette Years Smoked: 10 years e-Cigarette/Vaping Use: Never Used Second Hand Smoke Exposure: No service: No Current occupational status: disabled Current occupational exposures/hazards: No Cognitive needs: Yes (cane) Hearing needs: No Vision needs: Yes Questionnaire Thrive Questionnaire Date Thrive assessed: 04/26/23 AUDIT C Alcohol Use Questionnaire (AUDIT-C) 1. How often do you have a drink containing alcohol?: Never 3. How often do you have six or more drinks on one occasion?: Never Total Score: 0 ROSS-7 AMB Questionnaire ROSS-7 Date ROSS - 7 assessed: 04/26/23 Source: Developed by Drs. Moncoh Pacheco, Ade Soto, Bill Goldman and colleagues, with an educational lisa from [employer]. Physical exam (Primary Care) Vital Signs: Last Vital Signs Pulse 78 09/25/23 14:30 BP 116/54 L 09/25/23 14:30 Pulse Ox 98 09/25/23 14:30 Oxygen Delivery Method Room Air 09/25/23 14:30 Care Plan Goal for BP management: Blood pressure in range. BMI result Body Mass Index 27.8 Tobacco/Smoking Status: Tobacco use Status Tobacco use date assessed 09/01/23 09/25/23 14:31 Patient Tobacco Use Status Former Tobacco user 09/25/23 14:31 Tobacco use type Cigarette 09/25/23 14:31 e-Cigarette/Vaping Use Never Used 09/25/23 14:31 Thrive Assessment: Date of Thrive Assessment Date Thrive assessed 04/26/23 09/25/23 14:31 Const General: cooperative and healthy appearing Nutritional Appearance: well nourished Orientation/consciousness: patient oriented x3 Limitations: no limitations HENMT Head: Yes normal to inspection Eyes General: appearance normal, both eyes and all related structures Neck Neck: Yes normal visual inspection Chest Chest palpation & inspection: normal palpation of entire chest wall Resp Effort & Inspection: normal respiratory effort Neuro General: patient oriented x3 Extrem Other: Right lower extremity: Full internal and external rotation at the hip. Able to raise her right leg against gravity. Surgical scars over her foot and tibia. Flexion and extension at the knee. Assessment and Plan Assessment & Plan (1) Hypothyroidism: Comment: same dose from previous PCP X 2 months; previously from 125 mcg Code(s): E03.9 - Hypothyroidism, unspecified Plan: Synthroid dose has been reduced to 100 mcg a day. Repeat blood work in 8 weeks. (2) DM type 2 (diabetes mellitus, type 2): Code(s): E11.9 - Type 2 diabetes mellitus without complications Plan: A1c has been ordered. Will adjust metformin dosage accordingly. (3) Right leg pain: Code(s): M79.604 - Pain in right leg Plan: Patient will benefit from physical therapy. Orders: Orders AMB Hemoglobin A1c Today E11.9 - Type 2 diabetes mellitus without complications Medications: Discontinued phenazopyridine (Pyridium) Take with a meal as may cause GI upset on an empty stomach Discontinued Reason: Change Referral Type 200 mg PO BID 8 tabs 0RF azelastine-fluticasone 137-50 mcg/spray (Dymista) administer into each nostril Discontinued Reason: Doctor's Order 1 spray intranasal BID 23 grams 6RF Coding Level of Care Code Est Pt Level 4 (16493) Complex EM visit Add On G2211 Diagnoses Hypothyroidism E03.9 DM type 2 (diabetes mellitus, type 2) E11.9 Right leg pain M79.604
== END 2023-09-25 15:17 | disposition home or self-care (01) ==
PROVIDERS: PCP Internal Medicine; Visit Provider Internal Medicine
DX: E03.9 Hypothyroidism, unspecified (principal); E11.9 Type 2 diabetes mellitus without complications; M79.604 Pain in right leg
CPT/HCPCS: 83036; 99214; G2211

== ENCOUNTER 2023-09-28 14:54 | Outpatient (AMB) | payer OTHER, SELFPAY ==
--- NOTE | 2023-09-28 15:01 | A.OFFVIS_ITS ---
Vital Signs 09/28/23 15:02 Height 5 ft 3 in Weight 157 lb BMI 27.8 Intake Visit Reasons: follow up Forgetfulness Intake Note: Patient presents for forgetfulness. patient did her psych evaluation and testing results were going to be sent to Jennifer for further discussion and plan Microsoft Developer Required: Yes Microsoft Developer Services: Microsoft Developer Present Microsoft Developer Name: Ree Smith Allergies regadenoson [From [employer] Adverse Reaction (Intermediate, Verified 09/28/23 15:07) Chest Pain Medication List - Last Reconciled 09/28/23 by EVE Murry albuterol sulfate 90 mcg/actuation 2 puffs inhalation Q6H PRN 30 days albuterol sulfate 2.5 mg (3 mL) inhalation Q6H PRN amlodipine 5 mg PO DAILY ascorbic acid (vitamin C) 500 mg PO DAILY aspirin 81 mg PO DAILY azelastine 2 sprays intranasal BID 30 days [Bed pads As directed] blood-glucose meter (FreeStyle Lite Meter kit) test daily carvedilol 6.25 mg PO BID cholecalciferol (vitamin D3) 25 mcg PO DAILY [DIABETIC SHOES As directed] fluticasone propionate 50 mcg/actuation 2 sprays intranasal DAILY 30 days jagjsolxkwn-okelfluzo-lxyoudgl 200-62.5-25 mcg (Trelegy Ellipta) 1 inh inhalat ion DAILY 30 days ibuprofen 600 mg PO Q6H PRN [incontinence wipes As directed] ipratropium bromide 2 sprays intranasal TID PRN ipratropium-albuterol 0.5 mg-3 mg(2.5 mg base)/3 mL 3 mL inhalation Q6H PRN levothyroxine 100 mcg PO DAILY losartan 50 mg PO DAILY memantine 28 mg PO DAILY 30 days [Metal Shower handles As directed] metformin 500 mg PO DAILY montelukast 10 mg PO BEDTIME nebulizers As directed pantoprazole 20 mg PO DAILY [pull up As directed] Saccharomyces boulardii (Daily Probiotic (S. boulardii)) 5,000 mmu cells PO DAILY [sanitary pads kotex As directed] sertraline 50 mg PO DAILY simvastatin 20 mg PO BEDTIME [tumeric 1 tab PO DAILY] HPI Comments Details: 73-yr-old female presents for f/u visit. Pt is accompanied by her family. Pt denies any significant interval medical changes. Pt had neuro-psych eval- results showed mild neurocognitive disorder and depression/anxiety. Pt states she her cognition is doing better on Namenda ER 28mg qd- tolerating well. Pt asks how ALISA is r/t increased risk for CV disease. She is using her CPAP nightly at least 4-[address] Ayala manages her CPAP. Pt does endorse dry mouth- has adjusted water which helps. Does not use chin strip often. She is taking daily walks. She is socializing. States mood is stable. F/b by psych and tehrapy. [facility] Medical History (Updated 09/28/23 @ 16:09 by EVE Murry) Hypothyroidism Elevated cholesterol HTN (hypertension) Type 2 diabetes mellitus Cognitive dysfunction GERD (gastroesophageal reflux disease) Osteopenia Hypothyroid Chronic cough History of neuropathy Chronic ankle pain Non-rheumatic aortic stenosis Pleuritic chest pain Chronic allergic rhinitis Asthma-COPD overlap syndrome ALISA (obstructive sleep apnea) Asthma Surgical History History of surgery on lower extremity History of back surgery History of thyroid surgery Family History Father Diabetes HTN (hypertension) Heart disease Mother Diabetes HTN (hypertension) Other Asthma Social History Household Members: None Housing: Apartment Alcohol intake: former Patient Tobacco Use Status: Former Tobacco user Tobacco use type: Cigarette Years Smoked: 10 years e-Cigarette/Vaping Use: Never Used Second Hand Smoke Exposure: No service: No Current occupational status: disabled Current occupational exposures/hazards: No Cognitive needs: Yes (cane) Hearing needs: No Vision needs: Yes Physical Exam Vital Signs: BMI result Body Mass Index 27.8 Const General: cooperative and no acute distress Orientation/consciousness: patient oriented x3 Resp Effort & Inspection: normal respiratory effort and able to speak in complete sentences Neuro General: patient oriented x3 Cranial nerves: Yes CN's II-XII intact bilaterally Cognition (Neuro): normal cognition Psych Appearance: grossly normal Mental Status: mental status grossly normal Speech and movement: Normal speech and movement present Affect: normal affect Attitude: cooperative Assessment & Plan Assessment & Plan (1) Mild neurocognitive disorder: Code(s): G31.84 - Mild cognitive impairment of uncertain or unknown etiology Category: Medical (2) ALISA (obstructive sleep apnea): Code(s): G47.33 - Obstructive sleep apnea (adult) (pediatric) Category: Medical Plan Reviewed neuro-psych report w/ pt. Reviewed previous brain MRI report- Mild to moderate underlying microangiopathy and generalized cerebral volume loss. Tiny chronic lacunar infarct of the right cerebellar hemisphere. Continue to optimize CV and metabolic risk factors. Continue Namenda ER 28mg qhs. Discussed how untreated ALISA is r/t increased risks for CV and cognitive dz complications. Continue to use CPAP nightly > 4 hrs. She may benefit from trying OTC Xylimelts 1-2 tabs qhs. Continue daily walks. Continue to f/u w// psychiatry and psychotherapy. Consider f/u neuro-psych testing in 1-1.5 yrs. f/u in 6 months or sooner prn. Medications: Changed From memantine 28 mg PO DAILY 30 days 30 ea 6RF To memantine 28 mg PO DAILY 90 ea 3RF 90 days Coding Level of Care Code Est Pt Level 4 (38443) Diagnoses Mild neurocognitive disorder G31.84 ALISA (obstructive sleep apnea) G47.33
[2023-09-28 15:02] VITALS: BMI 27.8
== END 2023-09-28 15:47 | disposition home or self-care (01) ==
PROVIDERS: PCP Nurse Practitioner Family; Visit Provider Nurse Practitioner Family
DX: G31.84 Mild cognitive impairment of uncertain or unknown etiology (principal); G47.33 Obstructive sleep apnea (adult) (pediatric)
CPT/HCPCS: 99214

== ENCOUNTER → 2023-09-28 14:54 | Outpatient (BNVA) | payer OTHER, SELFPAY | PROVIDERS: PCP Nurse Practitioner Family; Visit Provider Nurse Practitioner Family | DX: G31.84 Mild cognitive impairment of uncertain or unknown etiology (principal); G47.33 Obstructive sleep apnea (adult) (pediatric) | CPT/HCPCS: 99212 ==

== ENCOUNTER → 2023-10-02 10:25 | Outpatient (BNVA) | payer OTHER, SELFPAY | PROVIDERS: PCP Internal Medicine; Visit Provider Urology | DX: N32.81 Overactive bladder (principal); R32 Unspecified urinary incontinence | CPT/HCPCS: 51798 ==

== ENCOUNTER 2023-10-12 10:34 | Outpatient (AMB) | payer OTHER, SELFPAY ==
--- NOTE | 2023-10-12 10:36 | MHC.PC.OV ---
Vital Signs 10/12/23 10:37 Height 5 ft 3 in Weight 156 lb BMI 27.6 BP 122/80 Blood Pressure Location Lt brachial Position Sitting Pulse 77 Pulse Source Pulse Oximeter Pulse Oximetry (%) 94 Oxygen Delivery Method Room Air Intake Visit Reasons: referral for gastro Advisory Internship Required: No Accompanied by: Self / Same As Patient Allergies regadenoson [From Lexiscan] Adverse Reaction (Intermediate, Verified 10/13/23 06:30) Chest Pain Tobacco use date assessed: 10/12/23 Fall risk assessment: No Falls in past year Last assessed Fall Risk: 10/12/23 Dental Screening Dental Screen Date: 10/12/23 Did you have a dental visit in the last 12 months?: Yes Did you have a dental problem in the last 6 months where you did not have access to dental care?: No Was dental information given to patient?: Patient has dentist HPI referral for gastro HPI Details 73-year-old female presents to the office to discuss her chronic medical conditions. She is accompanied by a female friend. Patient has 2 complaints to discuss today Patient reports that she could have hemorrhoids that are troubling. No bleeding per rectum. She has hard time passing stool. She is also passing gas right frequently. Incomplete bowel evacuation in the past few weeks. Minimal abdominal discomfort. She wonders if she should be seeing a central sterile tech. Patient is also complaining of left shoulder pain. Symptoms started after she was moving a chest of drawers. Limited range of motion in the left arm. [facility] Medical History Hypothyroidism Elevated cholesterol HTN (hypertension) Type 2 diabetes mellitus Cognitive dysfunction GERD (gastroesophageal reflux disease) Osteopenia Hypothyroid Chronic cough History of neuropathy Chronic ankle pain Non-rheumatic aortic stenosis Pleuritic chest pain Chronic allergic rhinitis Asthma-COPD overlap syndrome ALISA (obstructive sleep apnea) Asthma Surgical History History of surgery on lower extremity History of back surgery History of thyroid surgery Family History Father Diabetes HTN (hypertension) Heart disease Mother Diabetes HTN (hypertension) Other Asthma Social History Household Members: None Housing: Apartment Alcohol intake: former Patient Tobacco Use Status: Former Tobacco user Tobacco use type: Cigarette Years Smoked: 10 years e-Cigarette/Vaping Use: Never Used Second Hand Smoke Exposure: No service: No Current occupational status: disabled Current occupational exposures/hazards: No Cognitive needs: Yes (cane) Hearing needs: No Vision needs: Yes Questionnaire PHQ-9 Over the last 2 weeks, how often have you been bothered by any of the following problems? 1. Little interest or pleasure in doing things: not at all 2. Feeling down, depressed, or hopeless: not at all 3. Trouble falling or staying asleep, or sleeping too much: not at all 4. Feeling tired or having little energy: not at all 5. Poor appetite or overeating: not at all 6. Feeling bad about yourself - or that you are a failure or have let yourself or your family down: not at all 7. Trouble concentrating on things, such as reading the newspaper or watching television: not at all 8. Moving or speaking so slowly that other people could have noticed. Or the opposite - being so fidgety or restless that you have been moving around a lot more than usual: not at all 9. Thoughts that you would be better off or of hurting yourself in some way: not at all Total score: 0 Depression Screening Interpretation: Negative Depression Screening Done: Yes Source: Developed by Drs. Moncho Pacheco, Ade Soto, Bill Goldman and colleagues, with an educational lisa from [employer]. Thrive Questionnaire Date Thrive assessed: 10/12/23 I am a: Patient What is your living situation today?: I have a steady place to live Within the past 12 months, did the food you bought not last and you didn't have the money to get more?: Never true Within the past 12 months, did you worry whether your food would run out before you got money to buy more?: Never true Do you have trouble paying for medicines?: No Do you have trouble getting transportation to medical appointments?: No Do you have trouble paying your heating and electricity bill?: No Do you have trouble taking care of your child, family member or friend?: No Do you have trouble with day-to-day activities such as bathing, preparing meals, shopping, managing finances, etc.?: No Are you currently unemployed and looking for a job?: No Are you interested in more education?: No Please select the resources that you would like help with: None Currently or been in a relationship where the following occur: No concerns reported THRIVE Score: 0 AUDIT C Alcohol Use Questionnaire (AUDIT-C) 1. How often do you have a drink containing alcohol?: Never 3. How often do you have six or more drinks on one occasion?: Never Total Score: 0 ROSS-7 AMB Questionnaire ROSS-7 Date ROSS - 7 assessed: 10/12/23 Feeling nervous, anxious, or on edge: 0 = Not at all Not being able to stop or control worryin = Not at all Worrying too much about different things: 0 = Not at all Trouble relaxin = Not at all Being so restless that it is hard to sit still: 0 = Not at all Becoming easily annoyed or irritable: 0 = Not at all Feeling afraid as if something awful might happen: 0 = Not at all Total ROSS-7 score (0-4 normal; 5-9 mild; 10-14 moderate; 15-21 severe): 0 Source: Developed by Drs. Moncho Pacheco, Ade Soto, Bill Goldman and colleagues, with an educational lisa from [employer]. Physical exam (Primary Care) Vital Signs: Last Vital Signs Pulse 77 10/12/23 10:37 BP 122/80 10/12/23 10:37 Pulse Ox 94 10/12/23 10:37 Oxygen Delivery Method Room Air 10/12/23 10:37 BMI result Body Mass Index 27.6 Tobacco/Smoking Status: Tobacco use Status Tobacco use date assessed 10/12/23 10/12/23 10:39 Patient Tobacco Use Status Former Tobacco user 10/12/23 10:39 Tobacco use type Cigarette 10/12/23 10:39 e-Cigarette/Vaping Use Never Used 10/12/23 10:39 PHQ-9: PHQ-9 Score PHQ-9: Total score 0 10/12/23 10:57 Depression Screening Interpretation: Negative Thrive Assessment: Date of Thrive Assessment Date Thrive assessed 10/12/23 10/12/23 10:39 Currently or been in a relationship where the following occur: No concerns reported Const General: cooperative and healthy appearing Nutritional Appearance: well nourished Orientation/consciousness: patient oriented x3 Limitations: no limitations HENMT Head: Yes normal to inspection Eyes General: appearance normal, both eyes and all related structures Neck Neck: Yes normal visual inspection Chest Chest palpation & inspection: normal palpation of entire chest wall Resp Effort & Inspection: normal respiratory effort Other: With a female biomedical analytical scientist in the room, a rectal exam was done. No external hemorrhoid seen. Hard stool appreciated on rectal exam Neuro General: patient oriented x3 Extrem Other: Left shoulder: Pain on abduction of the arm greater than 90 degrees. Limited range of motion above 90 degrees. Painful flexion of the arm at the shoulder. Limited range of motion Assessment and Plan Assessment & Plan (1) Constipation: Code(s): K59.00 - Constipation, unspecified Plan: GI consult is not appropriate at this time. Patient was asked to take a trial of Colace 3 times a day and to try a Fleet enema. If the enema is not successful milk of magnesia will be tried. (2) Sprain of left shoulder: Code(s): S43.402A - Unspecified sprain of left shoulder joint, initial encounter Plan: Most likely a shoulder strain after she lifted a heavy object. X-rays of the left shoulder have been ordered. Will call with results. Medications: New docusate sodium (Colace) 100 mg PO BID 60 caps 0RF Coding Level of Care Code Est Pt Level 4 (74977) Complex EM visit Add On G2211 Diagnoses Constipation K59.00 Sprain of left shoulder S43.402A
[2023-10-12 10:37] VITALS: BP 122/80; PULSE 77; O2SAT 94; BMI 27.6
== END 2023-10-12 11:44 | disposition home or self-care (01) ==
PROVIDERS: PCP Internal Medicine; Visit Provider Internal Medicine
DX: K59.00 Constipation, unspecified (principal); S43.402A Unspecified sprain of left shoulder joint, initial encounter
CPT/HCPCS: 99214; G2211

== ENCOUNTER 2023-10-12 11:56 | Outpatient (REF) | payer OTHER, SELFPAY ==
--- NOTE | ~2023-10-12 | XR_ITS ---
EXAMINATION: XR SHOULDER, LEFT CLINICAL INFORMATION: Sprain of the left shoulder, initial encounter. COMPARISON: 01/24/2023 TECHNIQUE: AP external rotation, Grashey, scapular Y, and axillary views of the left shoulder. FINDINGS: There is cephalad subluxation of the humeral head with marked narrowing of the subacromial space as can be seen with a chronic rotator cuff tear. A type A os acromiale is suspected. Moderate osteoarthritis at the acromioclavicular and glenohumeral joints. Subacromial spurs. Bones are osteopenic. No fractures. Soft tissues are unremarkable. XR/XR shoulder LT min 2V IMPRESSION: 1. No acute fracture or malalignment. 2. Cephalad subluxation of the humeral head as can be seen with a chronic rotator cuff tear. 3. Moderate acromioclavicular and glenohumeral osteoarthritis. Electronically signed by: Raymond Hart MD 11/06/2023 05:37 PM EDT
== END 2023-10-12 11:57 | disposition home or self-care (01) ==
LOC: HO.LAB 11:56
PROVIDERS: Visit Provider Internal Medicine
DX: S43.402A Unspecified sprain of left shoulder joint, initial encounter (principal); X58.XXXA Exposure to other specified factors, initial encounter; Y93.9 Activity, unspecified; Y92.9 Unspecified place or not applicable; Y99.9 Unspecified external cause status
CPT/HCPCS: 73030

== ENCOUNTER 2023-10-18 12:22 | Outpatient (RCR) | payer OTHER, SELFPAY ==
--- NOTE | 2023-11-20 13:19 | MHC.SP.ADU ---
Referring provider: Jennifer PRADO Reason for Referral: ?Pt advised to have MEAT CUTTER APPRENTICE eval and tx- for cognitive tx? Type of Treatment: 81043 Standardized Cognitive Performance Testing, per hour Date of Plan of Treatment: 10/18/23 Onset of Symptoms/Illness: 05/16/23 Date Treatment Started: 10/18/23 Medical Diagnosis: F09 Cognitive dysfunction Primary Speech Language Diagnosis: R41.841 Cognitive communication disorder Secondary Speech Language Diagnosis: History Joanna Lacey is a 73 year old female referred for a speech language cognitive evaluation by Jennifer PRADO of the [facility] in [place], [place] due to ongoing concerns regarding her memory. Joanna reports she has ?some good days and some bad days? and takes Namenda which has helped her memory some. Joanna shared she forgets where she put something or what she was about to do, or may arrive somewhere and ?has a delay in thinking about where she is, but eventually remembers.? Per EMR, a neuro-psychological evaluation has not yet been done as her insurance was not in-network with [facility]. Additionally, Joanna reports difficulties in the following areas: understanding what others are saying, expressing thoughts, orientation, memory, problem solving, focusing, finding words, maintaining topic of conversation, and following directions. Joanna reports her difficulties started after she was sick with COVD. She reports she wanted to avoid going to the ER due to the risks associated with the pandemic, but saw her PCP and was prescribed antibiotics for a respiratory infection. She recovered, but to this day continues to deal with a cough and increased phlegm. She reports her difficulties started around this time. Joanna is a [place] speaker. She completed some college-level education and is not currently employed. She enjoys participating in activities put together by her sabianism and has one adult child. 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 Medical History: Other: Medical History Hypothyroidism Elevated cholesterol HTN (hypertension) Type 2 diabetes mellitus Cognitive dysfunction GERD (gastroesophageal reflux disease) Osteopenia Hypothyroid Chronic cough History of neuropathy Chronic ankle pain Non-rheumatic aortic stenosis Pleuritic chest pain Chronic allergic rhinitis Asthma-COPD overlap syndrome ALISA (obstructive sleep apnea) Asthma Surgical History History of surgery on lower extremity History of back surgery History of thyroid surgery Assessment Tests of Cognition: CLQT Clinical Impression: Impaired Observations: Patient was administered the Cognitive Linguistic Quick Test (CLQT) in Norwegian. The CLQT is a criterion-referenced assessment used to gain information about an individual?s relative strengths and weaknesses and to identify deficits in cognitive-linguistic skills in individuals aged 18-89 years old. The CLQT generates severity ratings in the following five cognitive domains: Attention, Memory, Language, Executive Functions, and Visuospatial Skills. Patient?s performance on the CLQT is displayed below: Task: Criterion Cut Score, Patient?s Score, Interpretation Personal Facts: 8, 8, Within Functional Limits Symbol Cancellation: 10, 12, Within Functional Limits Confrontational Namin, 10, Within Functional Limits Clock Drawin, 13, Within Functional Limits Story Retelling: (Not done to completion, but difficulties evident) Symbol Trails: 6, 4, Below Average Generative Namin, 4, Within Functional Limits Design Memory: 4, 3, Below Average Mazes: 4, 4, Within Functional Limits Design Generation: 5, 0, Below Average Task scores were summed together based on cognitive domain. Completed Cognitive Domain scores are as follows: Cognitive Domain: Domain Score, Severity Range, Severity Rating Attention: Unable to calculate Memory: Unable to calculate Executive Functions: 16, Mild, 3 Language: Unable to calculate Visuospatial Skills: 56, Mild, 3 Impressions: Patient demonstrated relative strengths in her language skills. She formulated complete sentences with appropriate semantic and syntactic use. She appropriately responded to open-ended questions and evidenced no difficulties with naming both during confrontational naming tasks and within spontaneous conversation. Patient was able to attend to simple, short tasks but exhibited some difficulty coordinating the demands of multiple tasks at once. Patient admitted to having some difficulty focusing. Patient asked for models and repetitions of task instructions as needed throughout the assessment. Patient demonstrated mild impairments in the area of short term memory as well. Patient was alert and oriented to person, place, situation, and time, accurately retrieving information about personal facts (integrity of previously stored information). She exhibited difficulty recalling details from a story (immediate recall of new information presented verbally in a paragraph) and recalling visual designs (immediate recall of new visual information). She did corroborate that she struggles day-to-day with remembering new information. Patient exhibited difficulty completing mazes despite directions being repeated several times. She was also unable to complete a task requiring her to create new shapes using 4 lines. Patient was observed to repeat shapes and jayal designs using only 1-3 lines. Individuals with typical neurological cognitive-linguistic skills typically generate more designs by creating a pattern in alternating positions of the designs. This reflects reduced flexibility in the generation of new designs or ideas. Impressions and Recommendations Summary: On assessment today, Joanna presented with a mild impairment of memory and processing skills. Immediate recall of verbally presented information was the greatest area of need noted today. Joanna additionally demonstrated a mild impairments in the areas of attention, executive function, and visual processing. It is recommended that Joanna return for a trial period of cognitive therapy to instruct strategies for managing memory and processing needs. Impact on Daily Function/Activity Limitations: Mild Daily Activities: Mild Interpersonal Interactions: Mild Education: Employment: Community: Mild Recommendation for Speech Therapy: Outpatient Speech Therapy Frequency/Duration: 1x weekly x 12 weeks Date Range for Service Requested: Time to Reassess: PRN Detention Goals: 1.) Patient will utilize compensatory strategies to assist (immediate and delayed) short-term memory in 80% of opportunities independently. Short Term Goals: Goal # : 1.1. Patient will demonstrate mental flexibility by identifying 2 possible solutions to safety situations in 80% of trials with minimal assistance. Goal Status: New Goal Goal# : 1.2. Patient will listen to auditory information (i.e. voicemail, ads, instructions for medication dosage, invitations) and make note of pertinent information in 80% of opportunities with minimal verbal cues. Goal Status: New Goal Goal # : 1.3. Patient will use internal memory strategies (visualization, verbal rehearsal, association) to recall 4 pieces of information (i.e. grocery lists, to-do lists) with 80% accuracy and 1-2 repetitions. Goal Status: New Goal Goal # : 1.4. Patient will electively use an issac or tech device to record and retrieve needed information in 4 out of 5 contexts with minimal verbal prompting. Goal Status: New Goal Recommended Referrals to be Discussed with Primary Care Provider: Neurology Patient Education: Completed: Yes Patient/Caregiver Education: Described Results of Evaluation Patient expressed understanding of evaluation Family/Caregivers expressed agreement with goals and treatment plan Comments/Barriers to Learning: It was a pleasure meeting and working with Joanna. Please do not hesitate to contact the [facility] if we can be of further assistance. Sulfide Head Operator Clinican/Clinical Fellow: No Supervisory Statement: N/A Speech Language Pathologist: Joan Bain M.A., CCC-MEAT CUTTER APPRENTICE
== END 2023-12-05 12:57 | disposition still patient (30) ==
LOC: HO.SH 12:22
PROVIDERS: PCP Internal Medicine; Visit Provider Nurse Practitioner Family
DX: F09 Unspecified mental disorder due to known physiological condition (principal)
CPT/HCPCS: 96125

== ENCOUNTER 2023-11-08 10:36 | Outpatient (AMB) | payer OTHER, SELFPAY ==
--- NOTE | 2023-11-08 10:37 | A.OFFPC_ITS ---
Vital Signs 11/08/23 10:39 Height 5 ft 3 in Weight 153 lb 8 oz BMI 27.2 BP 120/62 Blood Pressure Location Lt brachial Position Sitting Pulse 58 Pulse Source Pulse Oximeter Pulse Oximetry (%) 96 Oxygen Delivery Method Room Air Intake Visit Reasons: Rotator Cuff tear/ Xray results Intake Note: Patient is here to follow up on xray results, possible rotator cuff tear. Central Office Equipment Installer Required: Yes Central Office Equipment Installer Language: Pcb Design Engineer Name: Payal ([id number]) Information Interpreted: non-clinical & clinical Database Operator: Present Accompanied by: Daughter Allergies regadenoson [From Lexiscan] Adverse Reaction (Intermediate, Verified 11/10/23 13:30) Chest Pain Medication List - Last Reconciled 11/10/23 by Edu Agee MD albuterol sulfate 90 mcg/actuation 2 puffs inhalation Q6H PRN 30 days albuterol sulfate 2.5 mg (3 mL) inhalation Q6H PRN amlodipine 5 mg PO DAILY ascorbic acid (vitamin C) 500 mg PO DAILY aspirin 81 mg PO DAILY azelastine 2 sprays intranasal BID 30 days [Bed pads As directed] blood-glucose meter (FreeStyle Lite Meter kit) test daily carvedilol 6.25 mg PO BID cholecalciferol (vitamin D3) 25 mcg PO DAILY [DIABETIC SHOES As directed] docusate sodium (Colace) 100 mg PO BID fluticasone propionate 50 mcg/actuation 2 sprays intranasal DAILY 30 days wutngeygcts-lnjpsfvrh-yefypdrn 200-62.5-25 mcg (Trelegy Ellipta) 1 inh inhalation DAILY 30 days ibuprofen 600 mg PO Q6H PRN [incontinence wipes As directed] ipratropium bromide 2 sprays intranasal TID PRN ipratropium-albuterol 0.5 mg-3 mg(2.5 mg base)/3 mL 3 mL inhalation Q6H PRN levothyroxine 100 mcg PO DAILY losartan 50 mg PO DAILY memantine 28 mg PO DAILY 90 days [Metal Shower handles As directed] metformin 500 mg PO DAILY montelukast 10 mg PO BEDTIME nebulizers As directed pantoprazole 20 mg PO DAILY [pull up As directed] Saccharomyces boulardii (Daily Probiotic (S. boulardii)) 5,000 mmu cells PO DAILY [sanitary pads kotex As directed] sertraline 50 mg PO DAILY simvastatin 20 mg PO BEDTIME [tumeric 1 tab PO DAILY] Tobacco use date assessed: 11/08/23 Fall risk assessment: No Falls in past year Last assessed Fall Risk: 11/08/23 Dental Screening Dental Screen Date: 10/12/23 HPI Rotator Cuff tear/ Xray results HPI Details 73-year-old female presents [facility]. Patient reports that she continues to have diarrhea followed by constipation. The regimen suggested in the last visit is not helping her. She prefers to see a front services agent. Patient also has continue discomfort in the left shoulder. X-rays show a possible rotator cuff tear. [facility] Medical History Hypothyroidism Elevated cholesterol HTN (hypertension) Type 2 diabetes mellitus Cognitive dysfunction GERD (gastroesophageal reflux disease) Osteopenia Hypothyroid Chronic cough History of neuropathy Chronic ankle pain Non-rheumatic aortic stenosis Pleuritic chest pain Chronic allergic rhinitis Asthma-COPD overlap syndrome ALISA (obstructive sleep apnea) Asthma Surgical History History of colonoscopy (~03/12/20) History of surgery on lower extremity History of back surgery History of thyroid surgery Family History Father Diabetes HTN (hypertension) Heart disease Mother Diabetes HTN (hypertension) Other Asthma Social History Household Members: None Housing: Apartment Alcohol intake: former Patient Tobacco Use Status: Former Tobacco user Tobacco use type: Cigarette Years Smoked: 10 years e-Cigarette/Vaping Use: Never Used Second Hand Smoke Exposure: No service: No Current occupational status: disabled Current occupational exposures/hazards: No Cognitive needs: Yes (cane) Hearing needs: No Vision needs: Yes Questionnaire Thrive Questionnaire Date Thrive assessed: 10/12/23 Are you currently unemployed and looking for a job?: I choose not to answer this question ROSS-7 AMB Questionnaire ROSS-7 Date ROSS - 7 assessed: 10/12/23 Source: Developed by Drs. Moncho Pacheco, Ade Soto, Bill Goldman and colleagues, with an educational lisa from [employer]. Physical exam (Primary Care) Vital Signs: Last Vital Signs Pulse 58 11/08/23 10:39 BP 120/62 11/08/23 10:39 Pulse Ox 96 11/08/23 10:39 Oxygen Delivery Method Room Air 11/08/23 10:39 BMI result Body Mass Index 27.2 Tobacco/Smoking Status: Tobacco use Status Tobacco use date assessed 11/08/23 11/08/23 10:47 Patient Tobacco Use Status Former Tobacco user 11/08/23 10:47 Tobacco use type Cigarette 11/08/23 10:47 e-Cigarette/Vaping Use Never Used 11/08/23 10:47 Thrive Assessment: Date of Thrive Assessment Date Thrive assessed 10/12/23 11/08/23 10:47 Const General: cooperative and healthy appearing Nutritional Appearance: well nourished Orientation/consciousness: patient oriented x3 Limitations: no limitations HENMT Head: Yes normal to inspection Eyes General: appearance normal, both eyes and all related structures Neck Neck: Yes normal visual inspection Chest Chest palpation & inspection: normal palpation of entire chest wall Resp Effort & Inspection: normal respiratory effort Neuro General: patient oriented x3 Assessment and Plan Assessment & Plan (1) Rotator cuff tear: Code(s): M75.100 - Unspecified rotator cuff tear or rupture of unspecified shoulder, not specified as traumatic Plan: An orthopedic referral has been made. (2) Diarrhea: Code(s): R19.7 - Diarrhea, unspecified Plan: A GI referral has been made. Orders: Referrals Orthopedics Referral M75.100 - Unspecified rotator cuff tear or rupture of unspecified shoulder, not specified as traumatic Gastroenterology Referral K58.9 - Irritable bowel syndrome without diarrhea Coding Level of Care Code Est Pt Level 3 (97006) Complex EM visit Add On G2211 Diagnoses Rotator cuff tear M75.100 Diarrhea R19.7
[2023-11-08 10:39] VITALS: BP 120/62; PULSE 58; O2SAT 96; BMI 27.2
== END 2023-11-08 11:05 | disposition home or self-care (01) ==
PROVIDERS: PCP Internal Medicine; Visit Provider Internal Medicine
DX: M75.100 Unspecified rotator cuff tear or rupture of unspecified shoulder, not specified as traumatic (principal); R19.7 Diarrhea, unspecified

== ENCOUNTER → 2023-11-08 10:36 | Outpatient (BNVA) | payer OTHER, SELFPAY | PROVIDERS: PCP Internal Medicine; Visit Provider Internal Medicine | DX: M75.110 Incomplete rotator cuff tear or rupture of unspecified shoulder, not specified as traumatic (principal); R19.7 Diarrhea, unspecified | CPT/HCPCS: 99212 ==

== ENCOUNTER 2023-11-17 09:43 | Outpatient (REF) | payer OTHER, SELFPAY ==
--- NOTE | ~2023-11-17 | FL_ITS ---
EXAMINATION: XR FLUOROSCOPY UPPER GI WITH AIR CLINICAL INFORMATION: Persistent cough COMPARISON: None TECHNIQUE: Fluoroscopic air contrast upper GI examination was performed utilizing standard techniques with thin and thick barium and effervescent granules. Numerous spot images were obtained. FINDINGS: Images of the oropharynx and hypopharynx demonstrate normal swallow mechanism with normal epiglottic inversion and soft palate elevation. No tracheal penetration, glottic or subglottic aspiration identified. No nasopharyngeal reflux present. No masses or diverticulum are noted. There is ballooning of the hypopharynx with associated mild cricopharyngeal achalasia. Multiple surgical clips are present in the anterior neck, consistent with prior history of thyroidectomy. Dual and single contrast images of the esophagus demonstrate normal caliber, contour, and mucosal pattern. No evidence of stricture, mass, or ulcerations identified. Esophageal peristalsis was normal. A small type I hiatal hernia is present. Significant gastroesophageal reflux is seen up to the thoracic inlet. Dual contrast and single contrast images of the stomach demonstrated a normal contour. The gastric rugal folds have a thickened appearance, consistent with gastritis. No masses or ulcerations are seen. Contrast freely passed into the gastric antrum and duodenal bulb without delay. Single and air-contrast images of the duodenal bulb demonstrate no abnormality. The duodenal sweep has a normal appearance, course, and mucosal fold appearance. The imaged proximal jejunum has a normal fold pattern and caliber. FLUOROSCOPY TIME: 3 minutes 52 seconds Number of Spot Images: 13 Number of Cine: 12 DOSE AREA PRODUCT: 2680 uGy-m2 (microgray-meter squared) FL/FL barium swallow IMPRESSION: 1. 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 2. Status post thyroidectomy. 3. Small type I hiatal hernia with severe gastroesophageal reflux. 4. Thickened appearance of the gastric rugal folds, suggestive of gastritis. This procedure was performed by Jm Fan PA-C, and supervised by Dr. Patterson Electronically signed by: Raymond Patterson MD 11/20/2023 12:38 PM EDT
== END 2023-11-17 09:44 | disposition home or self-care (01) ==
LOC: HO.XRAY 09:43
PROVIDERS: PCP Internal Medicine; Visit Provider Hospitalist
DX: K21.9 Gastro-esophageal reflux disease without esophagitis (principal); R05.3 Chronic cough
CPT/HCPCS: 74220

== ENCOUNTER → 2023-11-17 09:44 | Outpatient (BNV) | payer OTHER, SELFPAY | PROVIDERS: PCP Internal Medicine; Visit Provider Radiology Diagnostic Radiology | DX: R05.3 Chronic cough (principal) | CPT/HCPCS: 74246 ==

== ENCOUNTER 2023-11-28 14:15 | Outpatient (AMB) | payer OTHER, SELFPAY ==
--- NOTE | 2023-11-28 14:37 | MHC.OFFVIS ---
Intake Visit Reasons: OV new problem left shoulder pain Intake Note: Joanna is a 73 year old right hand dominant female who presents to the office today for left shoulder pain that started 2-3 months ago after pushing something heavy. Pt states she is able to lift her arm above her head but very slowly. Pt denies surgeries or injections in her shoulder. Floor Covering Printer Name: [id number] Allergies regadenoson [From Lexiscan] Adverse Reaction (Intermediate, Verified 11/28/23 14:38) Chest Pain HPI HPI OV new problem left shoulder pain: Details: 73 yo female presents to the office today with left shoulder pain for several months. She denies injury. She has pain with lifting and reaching, she has pain with sleeping at night. [facility] Medical History (Updated 11/28/23 @ 14:48 by Luis Gray PA-C) Hypothyroidism Elevated cholesterol HTN (hypertension) Type 2 diabetes mellitus Cognitive dysfunction GERD (gastroesophageal reflux disease) Osteopenia Hypothyroid Chronic cough History of neuropathy Chronic ankle pain Non-rheumatic aortic stenosis Pleuritic chest pain Chronic allergic rhinitis Asthma-COPD overlap syndrome ALISA (obstructive sleep apnea) Asthma Surgical History History of colonoscopy (~03/12/20) History of surgery on lower extremity History of back surgery History of thyroid surgery Family History Father Diabetes HTN (hypertension) Heart disease Mother Diabetes HTN (hypertension) Other Asthma Social History Household Members: None Housing: Apartment Alcohol intake: former Patient Tobacco Use Status: Former Tobacco user Tobacco use type: Cigarette Years Smoked: 10 years e-Cigarette/Vaping Use: Never Used Second Hand Smoke Exposure: No service: No Current occupational status: disabled Current occupational exposures/hazards: No Cognitive needs: Yes (cane) Hearing needs: No Vision needs: Yes Review of Systems Const All systems reviewed & are unremarkable except as noted in HPI and below Physical Exam Const General: cooperative and no acute distress Orientation/consciousness: patient oriented x3 Resp Effort & Inspection: normal respiratory effort and able to speak in complete sentences Cardio Peripheral pulses: Peripheral pulses 2+ throughout Neuro General: patient oriented x3 Extrem Other: left shoulder normal to inspection. Tenderness over the bicipital groove and along deltoid region of the shoulder. FF to 175, ER to 90, IR to S1. 5/5 RTC strength, negative dye, cross body abduction. NVI. Results Reviewed Results Reviewed: XR shoulder LT min 2V 10/12/23 IMPRESSION: 1. No acute fracture or malalignment. 2. Cephalad subluxation of the humeral head as can be seen with a chronic rotator cuff tear. 3. Moderate acromioclavicular and glenohumeral osteoarthritis. Assessment & Plan Assessment & Plan (1) Osteoarthritis of left shoulder: Code(s): M19.012 - Primary osteoarthritis, left shoulder Category: Medical Plan We discussed options which include PT, NSAIDs and injections. She will defer on the injection today and proceed with PT and NSAIDs. If symptoms persist she will contact me for an injection, otherwise, prn. Orders: Orders PT Evaluation and Treatment Today M19.012 - Primary osteoarthritis, left shoulder Coding Level of Care Code Est Pt Level 3 (24012) Complex EM visit Add On G2211 Diagnoses Osteoarthritis of left shoulder M19.012
== END 2023-11-28 15:10 | disposition home or self-care (01) ==
PROVIDERS: PCP Internal Medicine; Visit Provider Physician Assistant
DX: M19.012 Primary osteoarthritis, left shoulder (principal)
CPT/HCPCS: 99213; G2211

== ENCOUNTER → 2023-11-28 14:15 | Outpatient (BNVA) | payer OTHER, SELFPAY | PROVIDERS: PCP Internal Medicine; Visit Provider Physician Assistant | DX: M19.012 Primary osteoarthritis, left shoulder (principal) | CPT/HCPCS: 99212 ==

== ENCOUNTER → 2023-11-30 10:51 | Outpatient (REF) | payer OTHER, SELFPAY ==
--- NOTE | 2023-11-30 10:54 | CA_ITS ---
Transthoracic Echocardiogram Patient (Last, First, Middle): Joanna Marks, Gender: Female Date of : 1950 Age: 73 Procedure Date: 11/30/2023 Procedure Type: Transthoracic Echocardiogram Location: OP Height: 160.02 cm Weight: 72.12 kg BSA: 1.75 m2 Heart Rate: bpm BP: 145 / 64 mmHg Softball Coach: TO Referring MD: Chastity Barr THERAPEUTIC STRATEGY LEAD-C Track Equipment Operator: Thomas Shipman MD Symptoms: I35.0 - Nonrheumatic aortic (valve) stenosis Study Quality: Adequate w contrast ECG Rhythm: Sinus Conclusions: - 1. Normal LV ejection fraction 55-60% with impaired relaxation filling pattern 2. At least mildly dilated left atrium 3. Early mild aortic stenosis 4. Normal RV systolic pressure 5. No gross pericardial effusion Findings Procedure Information Contrast agent, definity, is being given per protocol without apparent complications. Left Ventricle Normal left ventricular size, thickness, and systolic function. The visually estimated ejection fraction is between 55-60%. Spectral Doppler is indicative of an impaired relaxation filling pattern. E/E prime ratio is between 8 and 15 consistent with indeterminate filling pressures. Right Ventricle Normal right ventricular cavity size and systolic function. Atria The left atrium is mildly dilated. There is no evidence of interatrial shunt. The right atrium is normal in size. Aortic Valve There is mild calcification of the aortic valve. There is mild aortic valve stenosis. The peak aortic gradient is 10 mmHg.The mean gradient is 6 mmHg. The aortic valve area is 1.57 cm2. There is no aortic valve regurgitation. Mitral Valve Normal mitral valve structure and function. There is mild posterior mitral annular calcification. There is trace mitral valve regurgitation. There is no mitral valve stenosis. Pulmonic Valve The pulmonic valve was not well visualized. Tricuspid Valve Likely normal tricuspid valve structure and function. There is trace tricuspid valve regurgitation. The right ventricular systolic pressure is normal. The right ventricular systolic pressure is 21 mmHg. Normal right atrial pressure. There is no evidence of pulmonary hypertension. Great Vessels All visible segments of the aorta are normal in size. The pulmonary artery was not well visualized. There is no dilatation of the ascending aorta measuring 2.90 cm. Venous The inferior vena cava is normal in size and collapses greater than 50% with inspiration. Pericardium/Pleural There is no evidence of pericardial effusion. Prior Study Comparison No significant change compared to prior study dated: 09/08/2021. Measurements 2D Linear Measurements IVSd: 1.14 0.6-0.9/0.6-1.0 cm LVIDd: 5.16 3.9-5.3/4.2-5.9 cm LVIDd Index: 2.95 2.4-3.2/2.2-3.1 cm/m2 LVIDs: 3.71 2.0-3.6 cm LVPWd: 0.91 0.7-1.1 cm LA Diam: 3.70 2.7-3.8/3.0-4.0 cm LAIDs Index: 2.11 1.5-2.3 cm/m2 LV Mass: 247.08 67-162/88-224 g LV Mass Index: 141.19 43-95/49-115 g/m2 LVOT Diam: 1.90 3.0+(-)1.3 cm 2D Systolic Function EF 4C: 53.40 >55% EF 2C: 58.50 >55% EF BiP: 56.10 >55% Mitral Valve MV Pk E: 0.66 MV PK A: 0.77 MV Decel Time: 232.00 E/A: 0.90 E'Lateral: 7.62 E'Medial: 4.46 E/E' Med: 14.80 E/E' Lat: 8.70 PHT: 68.00 MVA PHT: 3.24 Decel Lewis: 2.84 Aortic Valve AoV Pk Tim: 1.61 AoV Mn Tim: 1.16 AoV VTI: 0.40 AoV Pk Grad: 10.00 Aov Mn Grad: 6.00 ROEL Cont.VTI: 1.57 LVOT LVOT Pk Tim: 0.82 LVOT Mn Tim: 0.57 LVOT VTI: 0.22 LVOT Pk Grad: 3.00 LVOT Mn Grad: 1.00 LVOT Diam: 1.90 LVOT Area: 2.84 Diastolic Function MV Pk E: 0.66 MV Pk A: 0.77 E/A: 0.90 E'Medial: 4.46 E/E' Med: 14.80 E' Laterial: 7.62 E/E' Lat: 8.70 Right Ventricle TAPSE (mm): 18.40 TVS' Tim: 8.46 Tricuspid Valve TR Pk Tim: 2.11 TR Pk Grad: 18.00 RA Press: 3.00 RVSP: 21.00 Great Vessels Aorta Sinus of Valsalva: 2.67 2.0-3.[address] Ridge: 2.03 1.7-3.4 cm Ao Asc: 2.90 2.1-3.4 cm Ao Arch: 2.90 Updated in Other Vendor System with Status of Final Thomas Shipman MD electronically signed on 12/01/2023 4:33:56 PM with status of Final
== END ==
LOC: HO.CARD 10:51
PROVIDERS: PCP Internal Medicine; Visit Provider Nurse Practitioner Family
DX: I35.0 Nonrheumatic aortic (valve) stenosis (principal)
CPT/HCPCS: 93306; Q9957

== ENCOUNTER → 2023-11-30 10:54 | Outpatient (BNV) | payer OTHER, SELFPAY | PROVIDERS: PCP Internal Medicine; Visit Provider Internal Medicine Cardiovascular Disease | DX: I35.0 Nonrheumatic aortic (valve) stenosis (principal) | CPT/HCPCS: 93306 ==

== ENCOUNTER 2023-12-01 13:34 | Outpatient (AMB) | payer OTHER, SELFPAY ==
[2023-12-01 13:43] VITALS: BP 118/70; PULSE 75; O2SAT 97; BMI 27.1
--- NOTE | 2023-12-01 13:43 | MHC.OFFVIS ---
Vital Signs 12/01/23 13:43 Height 5 ft 3 in Weight 153 lb BMI 27.1 BP 118/70 Blood Pressure Location Lt brachial Position Sitting Pulse 75 Pulse Source Pulse Oximeter Pulse Oximetry (%) 97 Oxygen Delivery Method Room Air Intake Visit Reasons: Sleep apnea Test Data Developer Required: No Allergies regadenoson [From Lexiscan] Adverse Reaction (Intermediate, Verified 12/01/23 13:44) Chest Pain HPI Comments Details: The patient is a 73-year-old woman with a known history of asthma in addition to obstructive sleep apnea. Apparently she was diagnosed with sleep apnea about a year ago. She has underlying cardiovascular risk factor with high blood pressure and diabetes. She did use the CPAP is very hard for her to get used to it. She would have episodes which she will wake up short of breath. Therefore after multiple times including decreasing the pressure is she return the CPAP. She continues to have daytime drowsiness and also has an elevated Alexandria score of 10. She also has a history of asthma. She had been on Advair before in this was switched over to Wixela and has not had any significant improvement in breathing. At this time will try to optimize respiratory therapy. Will likely made her respiratory status worse with such was diagnosed with COVID-19 infection and subsequently COVID-19 pneumonia about a month or 2 ago. She did require multiple courses of antibiotics initially prednisone. She still has shortness of breath with activity. Mild in severity. Also has a nonproductive cough that is improved. 03/07/2022 the patient is here for pulmonary follow-up visit. She is not recovering after having flu-like symptoms and worsening respiratory symptoms. He has been having increasing chest tightness and wheezing. Moderate severity. She was supposed to be on Trelegy but she has been getting the wrong inhaler to the pharmacy. A resend the prescription to the pharmacy. Will make sure that she is on the right medication. In the meantime I will request that she undergo a chest x-ray and also blood work to assess for any potential triggers that may be exacerbating her obstructive airway disease. Because of her breathing she had a hard time tolerating her CPAP. But now that she is feeling better her cough is a little better after having been sick see starting to go back to using it regularly. 06/13/2022 the patient is here for a pulmonary follow-up visit. The patient now is recovering after having COVID. Her major issue right now is her memory. She seems to not be able to remember things as well after COVID. She recently had an MRI and is currently being worked up for that. In the meantime she is still struggling with her CPAP. She does not use it regularly. I did download the data and she has used it only a few times. When she does use it however seems like the CPAP pressures are too low. She does want to go higher this times is is hard for her to tolerate however. Therefore she is going to continue with CPAP of 8 cm and will reassess her usage and also heart response to therapy. I did request she can bring it in to the next visit so we can also adjusted for her. In addition to this, the patient having some a per the sciatic chest discomfort. Primarily her side. Waxing waning. Pleuritic in nature. At this point she does not have it. I did recommend that if it happens again she can always come in for chest x-ray. She has also been noticing some wheezing. Although she has not been taking the Trelegy regularly. She needs to take a Trelegy regularly and also uses Singulair. Her wheezing may just be a transition into the spring. We can also consider on the chin on antihistamine therapy. However, like to try to avoid polypharmacy at this time. If the patient has worsening she is to call the office for further recommendations. 09/23/2022 patient is here for pulmonary follow-up visit. The patient has recovered well after having COVID. She is back to using her respiratory therapy as prescribed. The patient also has been using her CPAP. The CPAP therapy continues to be effective in beneficial. She does use it for more than 4 hours a night. Now however, now she is having some issues with back discomfort send reticular and neuropathic discomfort. This is affecting her sleep as it is hurting her she goes to bed. He is keeping her up and is affecting her sleep quality. We did talk about potentially treating her with gabapentin. The patient states that she had been on this before and she tolerated it well. Therefore will go ahead and start her on 300 mg at nighttime to help with her sleep and also with discomfort that is affecting her sleep. Hopefully with this she will continue using the CPAP more effectively. She continues use her respiratory medicines. She does not required her short-acting beta agonists at this time. 02/03/2023 the patient is here for a pulmonary follow-up visit. Since her last spoke the patient did have her nuclear Lexiscan. When she was getting the injection she did develop significant back pain and chest pain. It was moderate to severe. Her symptoms did subside. Likely just an adverse reaction to the medicine. Respiratory gonsalves she is doing well now. She she does continue with current therapy. The patient has been using her CPAP. The CPAP therapy continues to be affecting beneficial. If she did get a prescription for gabapentin but she stopped using it because it was causing her to have as significant appetite at nighttime and she does not want he gained any weight. Although now she is taking Zoloft and this seems to be helping her sleep as well. A she does complaint of a cough and also postnasal drip. Will go ahead and prescribe her Dymista with the hope of helping her with a upper respiratory complaints. His I also gave her prescription for Tessalon Perles that she can use as needed for her cough. Although it may not be covered. I did provide her with good Rx card that she can use at the local pharmacy. 03/31/2023 the patient is here for a pulmonary follow-up visit. The patient is complaining still of a cough. Still complains of nonproductive cough which is moderate severity. Does bother her. The patient has tried jcho-nfw-zjoreqs medications without any relief. We did try saline Dymista to the pharmacy but was not cover. She has currently not using any nasal sprays. In addition to that she has not using the CPAP regularly. Patient will monitor closely for any worsening daytime drowsiness. She will continue to try positional therapy. If she develops worsening daytime drowsiness or increased cardiovascular risk factors then repeating sleep study may be helpful. The Trelegy inhaler has been helping her asthma. She continued to use it daily. She has not required her rescue inhaler or nebulizer. Also to note, her last chest x-ray was back in December 2022 and was without any acute disease. 09/08/2023 the patient is here for a pulmonary follow-up visit. Still complaining of cough. Cough tends to be at times productive at times not productive. Moderate severity. Feels like it is gets worse when she is trying not to cough like at mormonism. She does taking jeqa-szf-gmfprni medication without any relief she has significant upper airway cough syndrome significant postnasal drip and rhinitis. She did try the nasal sprays but cause bleeding. Therefore she stopped them. The patient has been using the Trelegy inhaler and her respiratory symptoms have been better. Therefore, I believe her cough is mainly from a upper airway cough syndrome in addition to potentially reflux disease. She does have underlying reflux disease will go ahead and request a barium swallow this time. She is already on PPI. We did talk about the reflux diet and also sleeping elevated. In the meantime she does use a CPAP. The CPAP therapy has been affecting beneficial. She is using the P 10 nasal pillows. She does have a very dry mouth. I explained to her that she needs to use a chinstrap. She is going to start using 1. Hopeful that helps with the adverse effects. In addition to that she should provide nasal rinsing prior to the CPAP in order to minimize the postnasal drip in the irritation. 12/01/2023 the patient is here for a pulmonary follow-up visit. The patient has been using her CPAP. CPAP of 8 cm. Although her AHI has been elevated. I did download her machine and her average AHI is 24. Seems like she needs a higher pressure. We have been going up and down her pressures. Will go and switch over to an APAP 8-11. She is going to keep an eye on the AHI. Hopefully she will do better with the slightly higher pressure. Although arms suspect that she will need a little higher pressure. She continues on the respiratory inhalers with good response. She does complaint of dyspepsia. The patient did have a barium swallows pretty abnormal. She does have a GI evaluation soon. I do believe that based on the findings she needs an endoscopy. [facility] Medical History (Updated 11/28/23 @ 14:48 by Luis Gray PA-C) Hypothyroidism Elevated cholesterol HTN (hypertension) Type 2 diabetes mellitus Cognitive dysfunction GERD (gastroesophageal reflux disease) Osteopenia Hypothyroid Chronic cough History of neuropathy Chronic ankle pain Non-rheumatic aortic stenosis Pleuritic chest pain Chronic allergic rhinitis Asthma-COPD overlap syndrome ALISA (obstructive sleep apnea) Asthma Surgical History History of colonoscopy (~03/12/20) History of surgery on lower extremity History of back surgery History of thyroid surgery Family History Father Diabetes HTN (hypertension) Heart disease Mother Diabetes HTN (hypertension) Other Asthma Social History Household Members: None Housing: Apartment Alcohol intake: former Patient Tobacco Use Status: Former Tobacco user Tobacco use type: Cigarette Years Smoked: 10 years e-Cigarette/Vaping Use: Never Used Second Hand Smoke Exposure: No service: No Current occupational status: disabled Current occupational exposures/hazards: No Cognitive needs: Yes (cane) Hearing needs: No Vision needs: Yes Review of Systems Const Denies body aches, Denies chills, Reports difficulty sleeping, Denies fever(s) and Denies headache(s) Eyes Denies change in vision ENT Denies dizziness, Denies otalgia, Denies headache(s), Denies nasal discharge, Denies sinus pain and Denies sore throat Card Denies chest pain, Denies edema, Denies lightheadedness and Denies dyspnea Resp Reports cough, Denies hemoptysis and Denies dyspnea Denies hematuria, Denies dysuria, Denies flank pain and Reports urinary incontinence Musc Reports back pain Skin/Breast Reports as per HPI and Denies rash Neuro Reports burning sensations, Denies dizziness, Denies headache(s), Reports memory loss, Reports radicular pain and Reports paresthesias Psych Reports memory loss Physical Exam Vital Signs: Last Vital Signs Pulse 75 12/01/23 13:43 BP 118/70 12/01/23 13:43 Pulse Ox 97 12/01/23 13:43 Oxygen Delivery Method Room Air 12/01/23 13:43 BMI result Body Mass Index 27.1 Const General: alert Orientation/consciousness: patient oriented x3 Neck Neck: Yes normal visual inspection, Yes full ROM and Yes no lymphadenopathy Chest Chest palpation & inspection: normal inspection of the chest Resp Effort & Inspection: normal respiratory effort Auscultation: no rales, no rhonchi, no wheezes and diminished lung sounds Cardio Jugular venous distension: no JVD Rate: regular rate Rhythm: regular rhythm and other (ectopy) Heart sounds: S1 normal heart sound present and S2 normal heart sound present Peripheral pulses: Peripheral pulses 2+ throughout GI Inspection: Yes normal to inspection Palpation (GI): Soft to palpation and nontender Auscultation: normal bowel sounds Skin General skin exam: rashes and/or lesions noted Neuro General: patient oriented x3 Extrem Other: Trace edema around right lateral malleolus General: Yes normal to inspection Psych Appearance: grossly normal Mental Status: mental status grossly normal Speech and movement: Normal speech and movement present Results Reviewed Results Reviewed: [address] [address] Fluoroscopy Report Signed Patient: Joanna Marks MR#: [id number] : 1950 Acct:[id number] Age/Sex: 73 / F ADM Date: 11/17/23 Loc: HO.XRAY Attending Dr: Osmar Ayala MD Ordering Physician: Osmar Ayala MD Date of Service: 11/17/23 Procedure(s): FL barium swallow Accession Number(s): [id number] cc: Osmar Ayala MD; Edu Agee MD~ EXAMINATION: XR FLUOROSCOPY UPPER GI WITH AIR CLINICAL INFORMATION: Persistent cough COMPARISON: None TECHNIQUE: Fluoroscopic air contrast upper GI examination was performed utilizing standard techniques with thin and thick barium and effervescent granules. Numerous spot images were obtained. FINDINGS: Images of the oropharynx and hypopharynx demonstrate normal swallow mechanism with normal epiglottic inversion and soft palate elevation. No tracheal penetration, glottic or subglottic aspiration identified. No nasopharyngeal reflux present. No masses or diverticulum are noted. There is ballooning of the hypopharynx with associated mild cricopharyngeal achalasia. Multiple surgical clips are present in the anterior neck, consistent with prior history of thyroidectomy. Dual and single contrast images of the esophagus demonstrate normal caliber, contour, and mucosal pattern. No evidence of stricture, mass, or ulcerations identified. Esophageal peristalsis was normal. A small type I hiatal hernia is present. Significant gastroesophageal reflux is seen up to the thoracic inlet. Dual contrast and single contrast images of the stomach demonstrated a normal contour. The gastric rugal folds have a thickened appearance, consistent with gastritis. No masses or ulcerations are seen. Contrast freely passed into the gastric antrum and duodenal bulb without delay. Single and air-contrast images of the duodenal bulb demonstrate no abnormality. The duodenal sweep has a normal appearance, course, and mucosal fold appearance. The imaged proximal jejunum has a normal fold pattern and caliber. FLUOROSCOPY TIME: 3 minutes 52 seconds Number of Spot Images: 13 Number of Cine: 12 DOSE AREA PRODUCT: 2680 uGy-m2 (microgray-meter squared) FL/FL barium swallow IMPRESSION: 1. 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 2. Status post thyroidectomy. 3. Small type I hiatal hernia with severe gastroesophageal reflux. 4. Thickened appearance of the gastric rugal folds, suggestive of gastritis. This procedure was performed by Jm Fan PA-C, and supervised by Dr. Patterson Electronically signed by: Raymond Patterson MD 11/20/2023 12:38 PM EDT RP Dictated By: Raymond Patterson MD Signed By: <Electronically signed by Jm Fan in OV> 11/20/23 1238 Assessment & Plan Assessment & Plan (1) Asthma-COPD overlap syndrome: Code(s): J44.9 - Chronic obstructive pulmonary disease, unspecified Category: Medical (2) ALISA (obstructive sleep apnea): Code(s): G47.33 - Obstructive sleep apnea (adult) (pediatric) Category: Medical (3) Chronic allergic rhinitis: Code(s): J30.9 - Allergic rhinitis, unspecified Category: Medical (4) GERD (gastroesophageal reflux disease): Code(s): K21.9 - Gastro-esophageal reflux disease without esophagitis Category: Medical Qualifiers: Esophagitis presence: without esophagitis Qualified Code(s): K21.9 - Gastro-esophageal reflux disease without esophagitis (5) Chronic cough: Code(s): R05.3 - Chronic cough Category: Medical Plan continue APAP, adjusted APAP p10, needs to use chin strap continue Trelegy cont singular JEANNINE as needed ipratropium nasal spray as needed Barium swallow abnroma, GI referral pending Tessalon pearls as needed Follow-up in 6 months Coding Level of Care Code Est Pt Level 4 (29291) Diagnoses Asthma-COPD overlap syndrome J44.9 ALISA (obstructive sleep apnea) G47.33 Chronic allergic rhinitis J30.9 Gastroesophageal reflux disease without esophagitis K21.9 Esophagitis presence: without esophagitis Chronic cough R05.3 Time Spent (min) 18
== END 2023-12-01 14:36 | disposition home or self-care (01) ==
PROVIDERS: PCP Internal Medicine; Visit Provider Hospitalist
DX: J44.9 Chronic obstructive pulmonary disease, unspecified (principal); G47.33 Obstructive sleep apnea (adult) (pediatric); J30.9 Allergic rhinitis, unspecified; K21.9 Gastro-esophageal reflux disease without esophagitis; R05.3 Chronic cough
CPT/HCPCS: 99214

== ENCOUNTER → 2023-12-01 13:34 | Outpatient (BNVA) | payer OTHER, SELFPAY | PROVIDERS: PCP Nurse Practitioner Family; Visit Provider Hospitalist | DX: J44.9 Chronic obstructive pulmonary disease, unspecified (principal); G47.33 Obstructive sleep apnea (adult) (pediatric); J31.0 Chronic rhinitis; R05.3 Chronic cough; K21.9 Gastro-esophageal reflux disease without esophagitis | CPT/HCPCS: 99212 ==

== ENCOUNTER 2023-12-11 10:35 | Outpatient (REF) | payer OTHER, SELFPAY ==
[2023-12-11 12:59] LABS: Hematocrit 41.2 % (37.0-47.0); Mean Corpuscular HGB Conc 31.6 g/dl (31.0-35.0); Mean Corpuscular Hemoglobin 27.4 pg (27.0-33.0); Mean Corpuscular Volume 86.7 fL (80.0-98.0); Mean Platelet Volume 12.2 fL (9.4-12.3); Platelet Count 271 X10*3/uL (160-400); Red Blood Count 4.75 X10*6/uL (4.20-5.50); Red Cell Distribution Width 15.5 % (11.0-16.0); White Blood Count 9.9 X10*3/uL (4.8-10.8)
[2023-12-11 13:59] LABS: Alanine Aminotransferase 20 U/L (0-31); Albumin Level 4.3 g/dL (3.5-5.0); Alkaline Phosphatase 100 U/L (39-117); Anion Gap 11 (12-20); Aspartate Amino Transferase 22 U/L (5-31); Bilirubin Total 0.3 mg/dL (0.0-1.0); Blood Urea Nitrogen 21 mg/dL (9-16); C Reactive Protein 0.31 mg/dL (< or = 0.50); Calcium 9.6 mg/dL (8.4-10.2); Carbon Dioxide 27 mmol/L (22-29); Chloride 108 mmol/L (96-108); Estimated Glomerular Filt Rate > 60; Glucose Random 159 mg/dL (60-115); Potassium 4.1 mmol/L (3.3-5.1); Sodium 142 mmol/L (135-145); TSH reflex Free T4 1.67 uIU/mL (0.32-4.0); Total Protein 7.9 g/dL (6.5-8.0)
[2023-12-12 13:23] LABS: Immunoglobulin A 540 mg/dL (70-320)
[2023-12-12 14:19] LABS: Transglutaminase IgA <1.0 U/mL
[2023-12-19 10:13] LABS: Calprotectin, Fecal 56 mcg/g
== END 2023-12-11 10:36 | disposition home or self-care (01) ==
LOC: HO.LAB 10:35
PROVIDERS: PCP Internal Medicine; Visit Provider Internal Medicine
DX: K22.0 Achalasia of cardia (principal); K52.9 Noninfective gastroenteritis and colitis, unspecified; K64.9 Unspecified hemorrhoids; K59.00 Constipation, unspecified; K21.9 Gastro-esophageal reflux disease without esophagitis; R05.3 Chronic cough
CPT/HCPCS: 36415; 80053; 82784; 83993; 84443; 85027; 86140; 86364; 99202

== ENCOUNTER → 2023-12-11 10:35 | Outpatient (AMB) | payer OTHER, SELFPAY ==
--- NOTE | 2023-12-11 10:38 | A.OFFVIS_ITS ---
Vital Signs 12/11/23 10:49 Height 5 ft 3 in Weight 156 lb BMI 27.6 BP 180/77 H Blood Pressure Location Lt brachial Position Sitting Pulse 80 Intake Visit Reasons: Irritable bowel syndrome Intake Note: Patient new consult for IBS. Patient cc: hemorrhoids with constipation, chronic cough with some food like nuts and others. Line Department Supervisor Required: Yes Line Department Supervisor Name: [facility] [place] Interpeter Accompanied by: Family/Other Allergies regadenoson [From Lexiscan] Adverse Reaction (Intermediate, Verified 12/11/23 10:43) Chest Pain HPI Comments Details: 73 y.o F who is here for change in bowel habits. Reports x 6 months ago started noticing rectal pressure assoc with BMs fluctuating between constipation and diarrhea. Has also been noticing blood NH rashawn on straining. When has diarrhea, has up to 5 BMs per day which are watery and explosive. When constipated passes around 2-3 BMs per week. Used to take stool softeners. Pt also reports weight loss of almost 10 lbs in the past 4-5 months unintentionally. Appetite is good. Pt also reports significant reflux and regurgitation. Sees pulm who ordered barium swallow for chronic cough which showed possible cricopharyngeal narrowing as well as severe reflux. She is on PPI therapy x 10 years. Last colo was 2020 (Dr Xiong)- fair prep, no polyps. [facility] Medical History (Updated 12/11/23 @ 14:31 by Mary Naik MD) Hypothyroidism Elevated cholesterol HTN (hypertension) Type 2 diabetes mellitus Cognitive dysfunction GERD (gastroesophageal reflux disease) Osteopenia Hypothyroid Chronic cough History of neuropathy Chronic ankle pain Non-rheumatic aortic stenosis Pleuritic chest pain Chronic allergic rhinitis Asthma-COPD overlap syndrome ALISA (obstructive sleep apnea) Asthma Surgical History History of colonoscopy (~03/12/20) History of surgery on lower extremity History of back surgery History of thyroid surgery Family History Father Diabetes HTN (hypertension) Heart disease Mother Diabetes HTN (hypertension) Other Asthma Social History Household Members: None Housing: Apartment Alcohol intake: former Patient Tobacco Use Status: Former Tobacco user Tobacco use type: Cigarette Years Smoked: 10 years e-Cigarette/Vaping Use: Never Used Second Hand Smoke Exposure: No service: No Current occupational status: disabled Current occupational exposures/hazards: No Cognitive needs: Yes (cane) Hearing needs: No Vision needs: Yes Physical Exam Vital Signs: Last Vital Signs Pulse 80 12/11/23 10:49 BP 180/77 H 12/11/23 10:49 BMI result Body Mass Index 27.6 No apparent distress Nonicteric Abdomen soft, nondistended Alert and oriented x3, normal gait Results Reviewed Results Reviewed: 11/17/23: 1. 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 2. Status post thyroidectomy. 3. Small type I hiatal hernia with severe gastroesophageal reflux. 4. Thickened appearance of the gastric rugal folds, suggestive of gastritis. Assessment & Plan Assessment & Plan (1) Change in bowel habit: Code(s): R19.4 - Change in bowel habit Category: Medical (2) Cricopharyngeal achalasia: Code(s): K22.0 - Achalasia of cardia Category: Medical (3) GERD (gastroesophageal reflux disease): Code(s): K21.9 - Gastro-esophageal reflux disease without esophagitis Category: Medical Qualifiers: Esophagitis presence: without esophagitis Qualified Code(s): K21.9 - Gastro-esophageal reflux disease without esophagitis Plan 1. Reviewed with the pt that change in bowel habits at this age warrants repeat endoscopic evaluation to r/o malignancy, stricture, colitis etc. Will also get labs for celiac, thyrotoxicosis etc. Plan: - Labs ordered as below - EGD/colo to be booked - PEG prep discussed and handout provided. 2. Abnl barium swallow: burden of dysphagia is minimal. Cough is more bothersome to her. However, needs an EGD for eval as above anyway. She was made aware that may undergo dilation depending on luminal eval. Cont pantoprazole 20 Follow up after procedures Orders: Orders Comprehensive Met. Panel Today R19.4 - Change in bowel habit Transglutaminase IgA Today R19.4 - Change in bowel habit Complete Blood Count no Diff Today R19.4 - Change in bowel habit Immunoglobulin A Today R19.4 - Change in bowel habit TSH reflex Free T4 Today R19.4 - Change in bowel habit Calprotectin, Fecal Today R19.4 - Change in bowel habit C Reactive Protein Today R19.4 - Change in bowel habit Medications: New sennosides (Natural Senna Laxative) 17.2 mg (2 x 8.6 mg) PO DAILY 90 days 180 tabs 0RF peg 3350-electrolytes 236-22.74-6.74 -5.86 gram (Golytely) as per split prep instructions, until fecal effluent is clear 240 mL PO Q10M 4,000 mL 0RF colonoscopy Coding Level of Care Code New Pt Level 4 (60707) Diagnoses Change in bowel habit R19.4 Cricopharyngeal achalasia K22.0 Gastroesophageal reflux disease without esophagitis K21.9 Esophagitis presence: without esophagitis
[2023-12-11 10:49] VITALS: BP 180/77; PULSE 80; BMI 27.6
== END ==
PROVIDERS: PCP Internal Medicine; Visit Provider Internal Medicine
DX: R19.4 Change in bowel habit (principal); K22.0 Achalasia of cardia; K21.9 Gastro-esophageal reflux disease without esophagitis
CPT/HCPCS: 99204

== ENCOUNTER 2024-01-10 15:19 | Outpatient (AMB) | payer OTHER, SELFPAY ==
--- NOTE | 2024-01-10 15:27 | A.OFFVIS_ITS ---
Intake Visit Reasons: OAB,Botox- follow up Intake Note: Patient is present for OAB, BOTOX F/U Urology Medication:NONE Antibiotic Allergy:NONE Blood Thinner:ASPIRIN Mortar Maker Required: Yes Mortar Maker Name: [id number] Allergies regadenoson [From Lexiscan] Adverse Reaction (Intermediate, Verified 01/10/24 15:29) Chest Pain Medication List - Last Reconciled 01/10/24 by Colton Ledesma MD albuterol sulfate 90 mcg/actuation 2 puffs inhalation Q6H PRN 30 days albuterol sulfate 2.5 mg (3 mL) inhalation Q6H PRN amlodipine 5 mg PO DAILY ascorbic acid (vitamin C) 500 mg PO DAILY aspirin 81 mg PO DAILY azelastine 2 sprays intranasal BID 30 days [Bed pads As directed] blood-glucose meter (FreeStyle Lite Meter kit) test daily carvedilol 6.25 mg PO BID cholecalciferol (vitamin D3) 25 mcg PO DAILY CPAP (CPAP Machine/Device) As directed [DIABETIC SHOES As directed] docusate sodium (Colace) 100 mg PO BID fluticasone propionate 50 mcg/actuation 2 sprays intranasal DAILY 30 days bwfswonnzpk-gxrwakout-pnemkpsi 200-62.5-25 mcg (Trelegy Ellipta) 1 inh inhalation DAILY 30 days ibuprofen 600 mg PO Q6H PRN [incontinence wipes As directed] ipratropium bromide 2 sprays intranasal TID PRN ipratropium-albuterol 0.5 mg-3 mg(2.5 mg base)/3 mL 3 mL inhalation Q6H PRN levothyroxine 100 mcg PO DAILY losartan 50 mg PO DAILY memantine 28 mg PO DAILY 90 days [Metal Shower handles As directed] metformin 500 mg PO DAILY montelukast 10 mg PO BEDTIME nebulizers As directed nitrofurantoin monohyd/m-cryst 100 mg (Macrobid) 100 mg PO BID 4 days pantoprazole 20 mg PO DAILY peg 3350-electrolytes 236-22.74-6.74 -5.86 gram (Golytely) 240 mL PO Q10M phenazopyridine (Pyridium) 200 mg PO BID 4 days [pull up As directed] Saccharomyces boulardii (Daily Probiotic (S. boulardii)) 5,000 mmu cells PO DAILY [sanitary pads kotex As directed] sennosides (Natural Senna Laxative) 17.2 mg (2 x 8.6 mg) PO DAILY 90 days sertraline 50 mg PO DAILY simvastatin 20 mg PO BEDTIME [tumeric 1 tab PO DAILY] HPI Comments Details: 01/10/24--Joanna is a 73-year-old female who is followed for overactive bladder symptoms and is status post Botox 100 units, performed in the ambulatory or setting 09/19/2023. She states she is doing much better since the Botox injection she has less urgency and is able to get to the bathroom without leaking on herself with occasional leakage associated with coughing or sneezing. She does wear a pad in case she sneezes. Otherwise she is very happy with the bladder control at this time. Plan continue Botox every 6 months. Repeat Botox 100 units in the office the end of February or March. Will start Macrobid and Pyridium 2 days prior to procedure. Review of chart: 08/11/23--here for urodynamics. CMG parameters detailed below. Interpretation: During the filling phase there was normal sensation, sensory urgency was noted, strong urge was noted significant detrusor contraction associated with leakage of entire volume filled; the patient was refilled and stress test was negative. There was a cough induced detrusor contraction noted. Findings consistent with decreased compliance and detrusor overactivity. EMG- Appropriate changes in the waveforms were noted through out the study. Discussed role of PO anticholinergics on bladder spasms, pt stated she stopped bladder medication due to constipation. Discussed alternative therapy options to include Botox bladder injection. Discussed risks and benefits to include but not limited to UTI, hematuria, urinary retention, need to repeat botox to maintain efficacy. 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 She was evaluated last by nurse practitioner Nicolette Joseph. She planes of urinary symptoms leaking associated with urgency and coughing. 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 She states she completed pelvic floor physical therapy and has been doing exercises with only mild improvement in her urinary symptoms. I have discussed that common causes for urinary incontinence include bladder spasms and pelvic floor weakness. The patient failed Myrbetriq and VESIcare. Discussed further evaluation if urodynamics. 12/29/22--Joanna is a pleasant 72-year-old Mohawk speaking female patient of Dr. Mitchell. She has a past medical history of neuropathy, allergies, asthma, and obstructive sleep apnea. She has a past medical history of chronic allergic rhinitis, bronchitis, asthma, and obstructive sleep apnea. She is being follow- up on today via telehealth for her lower urinary tract symptoms (urinary frequency, urinary urgency and episodes of incontinence if not near a bathroom). Telehealth appointment was made today due to clarification of medications. During last office visit patient had reported some improvement with Myrbetriq 25 mg daily however felt urinary symptoms could be better at which time recommendations were made for additional 5 mg of VESIcare daily. However, patient discusses today feeling Myrbetriq was not helpful and is feeling VESIcare is causing her constipation. Discussed at length potential side effects of overactive bladder medications. Discussed and stressed pelvic floor therapy. Previous workup has included a retroperitoneal ultrasound noting unremarkable imaging of kidneys and bladder. Discussed bladder triggers/irritants. She otherwise offers no issues or concerns at this time. [facility] Medical History Hypothyroidism Elevated cholesterol HTN (hypertension) Type 2 diabetes mellitus Cognitive dysfunction GERD (gastroesophageal reflux disease) Osteopenia Hypothyroid Chronic cough History of neuropathy Chronic ankle pain Non-rheumatic aortic stenosis Pleuritic chest pain Chronic allergic rhinitis Asthma-COPD overlap syndrome ALISA (obstructive sleep apnea) Asthma Surgical History History of colonoscopy (~03/12/20) History of surgery on lower extremity History of back surgery History of thyroid surgery Family History Father Diabetes HTN (hypertension) Heart disease Mother Diabetes HTN (hypertension) Other Asthma Social History Household Members: None Housing: Apartment Alcohol intake: former Patient Tobacco Use Status: Former Tobacco user Tobacco use type: Cigarette Years Smoked: 10 years e-Cigarette/Vaping Use: Never Used Second Hand Smoke Exposure: No service: No Current occupational status: disabled Current occupational exposures/hazards: No Cognitive needs: Yes (cane) Hearing needs: No Vision needs: Yes Review of Systems Const All systems reviewed & are unremarkable except as noted in HPI and below Reports no additional complaints Eyes Reports no additional complaints ENT Reports no additional complaints Card Reports no additional complaints Resp Reports no additional complaints GI Reports no additional complaints Reports as per HPI Musc Reports no additional complaints Skin/Breast Reports system reviewed and no additional complaints, except as documented Neuro Reports no additional complaints Psych Reports no additional complaints Endo Reports no additional complaints Luis Alfredo/Lymph Reports no additional complaints Aller/Immun Reports no additional complaints Results AMB Urinalysis, Automated UA Leukoctes 70 Damien/uL Last Edit by CANDELARIO Nazario on 01/10/24 15:39 UA Nitrite Negative Last Edit by Almas Brito [facility] on 01/10/24 15:39 UA Urobilinogen 0.2 mg/dL Last Edit by Almas Brito [facility] on 01/10/24 15:3 9 UA Protein 15 mg/dL Last Edit by Almas Brito [facility] on 01/10/24 15:39 UA pH 6.0 Last Edit by Almas Brito [facility] on 01/10/24 15:39 UA Blood 10 [place]/uL Last Edit by Almas Brito [facility] on 01/10/24 15:39 UA Specific [place] 1.020 Last Edit by Almas Brito [facility] on 01/10/24 15: 39 UA Ketone Negative Last Edit by Almas Brito [facility] on 01/10/24 15:39 UA Bilirubin 0 mg/dL Last Edit by Almas Brito [facility] on 01/10/24 15:39 UA Glucose 0 mg/dL Last Edit by Almas Brito [facility] on 01/10/24 15:39 Results Reviewed Results Reviewed: Laboratory Last Values Urine pH (Auto) 6.0 01/10/24 15:39 Specific [place] (Auto) 1.020 01/10/24 15:39 Urine Protein (Auto) 15 mg/dL 01/10/24 15:39 Glucose (UA)(Auto) 0 mg/dL 01/10/24 15:39 Urine Ketones (Auto) Negative 01/10/24 15:39 Urine Blood (Auto) 10 [place]/uL 01/10/24 15:39 Urine Nitrite (Auto) Negative 01/10/24 15:39 Urine Bilirubin (Auto) 0 mg/dL 01/10/24 15:39 Urine Urobilinogen (Auto) 0.2 mg/dL 01/10/24 15:39 Leukocyte Esterase (Auto) 70 Damien/uL 01/10/24 15:39 Date of Service: 04/01/22 US RETROPERITONEAL LIMITED (RENAL ONLY) FINDINGS: RIGHT KIDNEY: 10.0 x 3.8 x 4.7 cm (SAG x AP x TRV). The kidney is normal in size, contour, and echogenicity. Renal cortical thickness is normal. No calculi or focal parenchymal lesions. No hydronephrosis. LEFT KIDNEY: 10.1 x 5.4 x 5.5 cm (SAG x AP x TRV). The kidney is normal in size, contour, and echogenicity. Renal cortical thickness is normal. No calculi or focal parenchymal lesions. No hydronephrosis. IMPRESSION: Unremarkable renal ultrasound. Date of Service: 04/04/22 US PELVIS LIMITED (BLADDER) FINDINGS: BLADDER: Well distended and normal. Bilateral ureteral jets are demonstrated. Prevoid bladder volume is 227 mL. Postvoid bladder volume is 18 mL. IMPRESSION: Unremarkable examination. Assessment & Plan Assessment & Plan (1) Urinary incontinence: Code(s): R32 - Unspecified urinary incontinence Category: Medical (2) Lower urinary tract symptoms: Code(s): R39.9 - Unspecified symptoms and signs involving the genitourinary system Category: Medical (3) OAB (overactive bladder): Code(s): N32.81 - Overactive bladder Category: Medical Plan Repeat Botox 100 units in the office the end of February or March. Will start Macrobid and Pyridium 2 days prior to procedure. Orders: Orders AMB Urinalysis Automated Today Z13.9 - Encounter for screening, unspecified Medications: New nitrofurantoin monohyd/m-cryst 100 mg (Macrobid) must administer with a meal/food, start 2 days prior to office botox procedure 100 mg PO BID 4 days 8 caps 0RF prevent bladder infection phenazopyridine (Pyridium) take with a meal, start 2 days prior to office botox procedure 200 mg PO BID 4 days 8 tabs 0RF urinary pain Patient Instructions: The patient had an opportunity to ask questions regarding treatment plan. The patient expressed understanding and agreement with the above treatment plan. The patient is aware they should contact our office by phone for worsening of their current condition or the appearance of new symptoms. Compliance is encouraged with any medications and followup testing that is ordered. It is a privilege to be allowed the opportunity to participate in the urologic care of your patient. If you have any questions or concerns regarding treatment for the above conditions please do not hesitate to contact me. The office telephone contact is [phone]. This note is constructed in part using voice recognition software. While every effort has been made to ensure accuracy group fitness instructor errors may have been included. Yours sincerely, Colton Ledesma MD Coding Level of Care Code Est Pt Level 4 (40345) Diagnoses Urinary incontinence R32 Lower urinary tract symptoms R39.9 OAB (overactive bladder) N32.81
== END 2024-01-10 16:10 | disposition home or self-care (01) ==
PROVIDERS: PCP Internal Medicine; Visit Provider Urology
DX: R32 Unspecified urinary incontinence (principal); R39.9 Unspecified symptoms and signs involving the genitourinary system; N32.81 Overactive bladder; Z13.9 Encounter for screening, unspecified
CPT/HCPCS: 99214

== ENCOUNTER → 2024-01-10 15:19 | Outpatient (BNVA) | payer OTHER, SELFPAY | PROVIDERS: PCP Internal Medicine; Visit Provider Urology | DX: N32.81 Overactive bladder (principal); R32 Unspecified urinary incontinence; R39.9 Unspecified symptoms and signs involving the genitourinary system | CPT/HCPCS: 81003; 99212 ==

== ENCOUNTER 2024-01-25 11:01 | Outpatient (AMB) | payer OTHER, SELFPAY ==
--- NOTE | 2024-01-25 11:07 | A.OFFVIS_ITS ---
Vital Signs 01/25/24 11:08 Height 5 ft 3 in Weight 158 lb BMI 28.0 BP 122/66 Blood Pressure Location Rt brachial Position Sitting Pulse 71 Pulse Source Pulse Oximeter Pulse Oximetry (%) 96 Oxygen Delivery Method Room Air Intake Visit Reasons: Follow up Sales And Marketing Associate Required: No Accompanied by: Daughter Allergies regadenoson [From Tim] Adverse Reaction (Intermediate, Verified 01/25/24 11:12) Chest Pain Medication List - Last Reconciled 01/25/24 by EVE Murry albuterol sulfate 90 mcg/actuation 2 puffs inhalation Q6H PRN 30 days albuterol sulfate 2.5 mg (3 mL) inhalation Q6H PRN amlodipine 5 mg PO DAILY ascorbic acid (vitamin C) 500 mg PO DAILY aspirin 81 mg PO DAILY azelastine 2 sprays intranasal BID 30 days [Bed pads As directed] blood-glucose meter (FreeStyle Lite Meter kit) test daily carvedilol 6.25 mg PO BID cholecalciferol (vitamin D3) 25 mcg PO DAILY CPAP (CPAP Machine/Device) As directed [DIABETIC SHOES As directed] docusate sodium (Colace) 100 mg PO BID fluticasone propionate 50 mcg/actuation 2 sprays intranasal DAILY 30 days xmkmgozsrqt-rfhqqiiwk-enhgrasy 200-62.5-25 mcg (Trelegy Ellipta) 1 inh inhalation DAILY 30 days ibuprofen 600 mg PO Q6H PRN [incontinence wipes As directed] ipratropium bromide 2 sprays intranasal TID PRN ipratropium-albuterol 0.5 mg-3 mg(2.5 mg base)/3 mL 3 mL inhalation Q6H PRN levothyroxine 100 mcg PO DAILY losartan 50 mg PO DAILY memantine 28 mg PO DAILY 90 days [Metal Shower handles As directed] metformin 500 mg PO DAILY montelukast 10 mg PO BEDTIME nebulizers As directed nitrofurantoin monohyd/m-cryst 100 mg (Macrobid) 100 mg PO BID 4 days pantoprazole 20 mg PO DAILY peg 3350-electrolytes 236-22.74-6.74 -5.86 gram (Golytely) 240 mL PO Q10M phenazopyridine (Pyridium) 200 mg PO BID 4 days [pull up As directed] Saccharomyces boulardii (Daily Probiotic (S. boulardii)) 5,000 mmu cells PO DAILY [sanitary pads kotex As directed] sennosides (Natural Senna Laxative) 17.2 mg (2 x 8.6 mg) PO DAILY 90 days sertraline 50 mg PO DAILY simvastatin 20 mg PO BEDTIME [tumeric 1 tab PO DAILY] HPI Comments Details: 73-yr-old female presents for f/u visit. Pt is accompanied by her family. Pt states she her cognition is still better on Namenda ER 28mg qd- tolerating well. Pt reports she continues to use her CPAP most nights at least 4-5 hours, however sometimes she takes it off at night because it leaks and makes a noise which is bothersome. Dr Ayala manages her CPAP. She is taking daily walks with her dog. She is socializing. She is doing word-finding puzzles. States mood is stable. F/b by psych and therapy. She is looking forward to an upcoming trip to [place] for holiday. [facility] Medical History Hypothyroidism Elevated cholesterol HTN (hypertension) Type 2 diabetes mellitus Cognitive dysfunction GERD (gastroesophageal reflux disease) Osteopenia Hypothyroid Chronic cough History of neuropathy Chronic ankle pain Non-rheumatic aortic stenosis Pleuritic chest pain Chronic allergic rhinitis Asthma-COPD overlap syndrome ALISA (obstructive sleep apnea) Asthma Surgical History History of colonoscopy (~03/12/20) History of surgery on lower extremity History of back surgery History of thyroid surgery Family History Father Diabetes HTN (hypertension) Heart disease Mother Diabetes HTN (hypertension) Other Asthma Social History Household Members: None Housing: Apartment Alcohol intake: former Patient Tobacco Use Status: Former Tobacco user Tobacco use type: Cigarette Years Smoked: 10 years e-Cigarette/Vaping Use: Never Used Second Hand Smoke Exposure: No service: No Current occupational status: disabled Current occupational exposures/hazards: No Cognitive needs: Yes (cane) Hearing needs: No Vision needs: Yes Physical Exam Vital Signs: Last Vital Signs Pulse 71 01/25/24 11:08 BP 122/66 01/25/24 11:08 Pulse Ox 96 01/25/24 11:08 Oxygen Delivery Method Room Air 01/25/24 11:08 BMI result Body Mass Index 28.0 Const General: cooperative and no acute distress Orientation/consciousness: patient oriented x3 Resp Effort & Inspection: normal respiratory effort and able to speak in complete sentences Neuro Other: Steady gait with cane General: patient oriented x3 Cranial nerves: Yes CN's II-XII intact bilaterally Cognition (Neuro): normal cognition Psych Appearance: grossly normal Mental Status: mental status grossly normal Speech and movement: Normal speech and movement present Affect: normal affect Attitude: cooperative Assessment & Plan Assessment & Plan (1) Mild neurocognitive disorder: Code(s): G31.84 - Mild cognitive impairment of uncertain or unknown etiology Category: Medical (2) Right-sided lacunar infarction: Comment: brain MRI report- Mild to moderate underlying microangiopathy and generalized cerebral volume loss. Tiny chronic lacunar infarct of the right cerebellar hemisphere. Code(s): I63.81 - Other cerebral infarction due to occlusion or stenosis of small artery Category: Medical (3) ALISA (obstructive sleep apnea): Code(s): G47.33 - Obstructive sleep apnea (adult) (pediatric) Category: Medical Plan Continue to optimize CV and metabolic risk factors- blood pressure normotensive today. Continue aspirin, antihypertensive and diabetic regimen. Continue Namenda ER 28mg qhs. Encourage patient to use CPAP nightly > 4 hrs. She may benefit from trying OTC earplugs to minimize sleep disruption from air mask leaks. Continue daily walks. Encouraged patient to engage in regular social and cognitively stimulating activities. Continue to f/u w/ psychiatry and psychotherapy. Consider f/u neuro-psych testing in 1-1.5 yrs. f/u in 6 months or sooner prn. Coding Level of Care Code Est Pt Level 4 (97868) Diagnoses Mild neurocognitive disorder G31.84 Right-sided lacunar infarction I63.81 ALISA (obstructive sleep apnea) G47.33
[2024-01-25 11:08] VITALS: BP 122/66; PULSE 71; O2SAT 96; BMI 28.0
== END 2024-01-25 12:01 | disposition home or self-care (01) ==
PROVIDERS: PCP Nurse Practitioner Family; Visit Provider Nurse Practitioner Family
DX: I69.318 Other symptoms and signs involving cognitive functions following cerebral infarction (principal); G47.33 Obstructive sleep apnea (adult) (pediatric)
CPT/HCPCS: 99214

== ENCOUNTER → 2024-01-25 11:01 | Outpatient (BNVA) | payer OTHER, SELFPAY | PROVIDERS: PCP Nurse Practitioner Family; Visit Provider Nurse Practitioner Family | DX: G31.84 Mild cognitive impairment of uncertain or unknown etiology (principal); G47.33 Obstructive sleep apnea (adult) (pediatric); Z86.73 Personal history of transient ischemic attack (TIA), and cerebral infarction without residual deficits; Z99.89 Dependence on other enabling machines and devices | CPT/HCPCS: 99212 ==

== ENCOUNTER 2024-02-26 14:54 | Outpatient (AMB) | payer OTHER, SELFPAY ==
[2024-02-26 15:06] VITALS: BP 148/62; PULSE 91; BMI 28.0
--- NOTE | 2024-02-26 15:06 | MHC.OFFVIS ---
Vital Signs 02/26/24 15:06 Height 5 ft 3 in Weight 157 lb 13.616 oz BMI 28.0 BP 148/62 H Blood Pressure Location Lt brachial Position Sitting Pulse 91 Pulse Source Pulse Oximeter Intake Visit Reasons: 1Y echo Resolute Professional Required: Yes Resolute Professional Language: Subsorter Name: sher kendall [id number] Allergies regadenoson [From Lexiscan] Adverse Reaction (Intermediate, Verified 02/26/24 15:09) Chest Pain Medication List - Last Reconciled 02/26/24 by CLEOPATRA RowellC albuterol sulfate 90 mcg/actuation 2 puffs inhalation Q6H PRN 30 days albuterol sulfate 2.5 mg (3 mL) inhalation Q6H PRN amlodipine 5 mg PO DAILY ascorbic acid (vitamin C) 500 mg PO DAILY aspirin 81 mg PO DAILY azelastine 2 sprays intranasal BID 30 days [Bed pads As directed] blood-glucose meter (FreeStyle Lite Meter kit) test daily carvedilol 6.25 mg PO BID cholecalciferol (vitamin D3) 25 mcg PO DAILY CPAP (CPAP Machine/Device) As directed [DIABETIC SHOES As directed] docusate sodium (Colace) 100 mg PO BID fluticasone propionate 50 mcg/actuation 2 sprays intranasal DAILY 30 days tfebibfpoah-rmukgepit-gzfmldkn 200-62.5-25 mcg (Trelegy Ellipta) 1 inh inhalation DAILY 30 days ibuprofen 600 mg PO Q6H PRN [incontinence wipes As directed] ipratropium bromide 2 sprays intranasal TID PRN ipratropium-albuterol 0.5 mg-3 mg(2.5 mg base)/3 mL 3 mL inhalation Q6H PRN levothyroxine 100 mcg PO DAILY losartan 50 mg PO DAILY memantine 28 mg PO DAILY 90 days [Metal Shower handles As directed] metformin 500 mg PO DAILY montelukast 10 mg PO BEDTIME nebulizers As directed nitrofurantoin monohyd/m-cryst 100 mg (Macrobid) 100 mg PO BID 4 days pantoprazole 20 mg PO DAILY peg 3350-electrolytes 236-22.74-6.74 -5.86 gram (Golytely) 240 mL PO Q10M [pull up As directed] Saccharomyces boulardii (Daily Probiotic (S. boulardii)) 5,000 mmu cells PO DAILY [sanitary pads kotex As directed] sennosides (Natural Senna Laxative) 17.2 mg (2 x 8.6 mg) PO DAILY 90 days sertraline 50 mg PO DAILY simvastatin 20 mg PO BEDTIME [tumeric 1 tab PO DAILY] HPI HPI 1Y echo: Details: Joanna is a 73-year-old female with past medical history hypertension, hyperlipidemia, diabetes, sleep apnea, mild aortic stenosis who recently had an echocardiogram and now presents for follow-up. Today she reports that she is concerned about the discoloration in her lower legs. She has some discomfort in her lower legs if she does a lot of walking or standing. She is asking to have this evaluated. She has no chest discomfort at rest or with activity. No concerning shortness of breath, palpitations, presyncope, syncope, PND, orthopnea or edema. She reports having seasonal asthma but tells me it is currently controlled. She tries to walk for exercise. She is taking her meds as directed. Certified certified court/medical interpreter used. [facility] Medical History Hypothyroidism Elevated cholesterol HTN (hypertension) Type 2 diabetes mellitus Cognitive dysfunction GERD (gastroesophageal reflux disease) Osteopenia Hypothyroid Chronic cough History of neuropathy Chronic ankle pain Non-rheumatic aortic stenosis Pleuritic chest pain Chronic allergic rhinitis Asthma-COPD overlap syndrome ALISA (obstructive sleep apnea) Asthma Surgical History History of colonoscopy (~03/12/20) History of surgery on lower extremity History of back surgery History of thyroid surgery Family History Father Diabetes HTN (hypertension) Heart disease Mother Diabetes HTN (hypertension) Other Asthma Social History Household Members: None Housing: Apartment Alcohol intake: former Patient Tobacco Use Status: Former Tobacco user Tobacco use type: Cigarette Years Smoked: 10 years e-Cigarette/Vaping Use: Never Used Second Hand Smoke Exposure: No service: No Current occupational status: disabled Current occupational exposures/hazards: No Cognitive needs: Yes (cane) Hearing needs: No Vision needs: Yes Review of Systems Const All systems reviewed & are unremarkable except as noted in HPI and below ENT Denies dizziness Card Denies chest pain, Denies chest pain at rest, Denies chest pain with activity, Denies rapid heart rate, Denies pedal edema, Denies edema, Denies leg edema, Denies lightheadedness, Denies palpitations, Denies dyspnea, Denies dyspnea on exertion and Denies orthopnea Resp Denies cough, Denies dyspnea and Denies dyspnea on exertion GI Denies hematochezia and Denies change in stool character Musc Details: discoloration of skin on lower legs, leg discomfort with prolonged standing Denies abnormal gait, Denies limited range of motion, Denies muscle cramps, Denies muscle weakness, Denies numbness, Denies radiating pain into limb, Denies stiffness and Denies tingling Neuro Denies abnormal gait, Denies dizziness, Denies numbness and Denies tingling Endo Denies palpitations Physical Exam Vital Signs: Last Vital Signs Pulse 91 02/26/24 15:06 BP 148/62 H 02/26/24 15:06 BMI result Body Mass Index 28.0 Const General: cooperative, healthy appearing, comfortable and no acute distress Orientation/consciousness: patient oriented x3 Neck Neck: Yes normal visual inspection Resp Effort & Inspection: normal respiratory effort Auscultation: clear to auscultation bilaterally, no rales, no rhonchi and no wheezes Cardio Rate: regular rate Rhythm: regular rhythm Heart sounds: S2 normal heart sound present, Murmur heart sound present (2/6 systolic murmur) and no rubs Neuro General: patient oriented x3 Extrem Other: venous stasis changes to skin of lower legs bilaterally General: No no pedal edema and No calf tenderness Psych Appearance: grossly normal Mental Status: mental status grossly normal Speech and movement: Normal speech and movement present Assessment & Plan Assessment & Plan (1) Precordial chest pain: Code(s): R07.2 - Precordial pain Category: Medical Plan: Prior Reports of left-sided chest discomfort occurring intermittently, nonexertional. A nuclear stress test had been done 08/2021 which was normal. Echocardiogram 09/08/2021 showed EF 55-60%, moderate left atrial dilation, moderate diastolic dysfunction and mild aortic stenosis. With her more recent reports of chest discomfort she underwent a repeat nuclear stress test on 12/01/2022 showing normal myocardial perfusion imaging. Reviewed results with her. At this time she is not having any concerning chest discomfort. Signs and symptoms of true angina reviewed with her. Emergency care if ever needed for symptoms. (2) Non-rheumatic aortic stenosis: Code(s): I35.0 - Nonrheumatic aortic (valve) stenosis Category: Medical Plan: Known mild aortic stenosis. Echocardiogram done 11/30/2023 showing EF 55-60%, mildly dilated left atrium, early mild aortic stenosis, mean gradient 6 mmHg aortic valve area 1.5 centimeter sq, no significant change from echo 09/08/2021. Very faint murmur noted on exam. Repeat echo in 2 years. (3) Essential hypertension: Code(s): I10 - Essential (primary) hypertension Category: Medical Plan: Initially mildly elevated at 140 8/62. Recheck done by me 134/60. No med changes made. Continue amlodipine, carvedilol, losartan. (4) Venous stasis of both lower extremities: Code(s): I87.8 - Other specified disorders of veins Category: Medical Plan: Patient reporting discoloration to the skin of each lower leg, discomfort and mild swelling if she does prolonged standing or walking. On exam she does have discoloration consistent with venous stasis. Discussed leg elevation when sitting, gave her a pair of compression stockings from our office stock. Will check a bilateral lower extremity venous ultrasound to evaluate for reflux. Plan to call her with results once available. Plan Time spent on chart review, documentation, interview and assessment Orders: Orders US venous duplex LE 02/26/24 I87.8 - Other specified disorders of veins Coding Level of Care Code Est Pt Level 4 (21221) Complex EM visit Add On G2211 Diagnoses Precordial chest pain R07.2 Non-rheumatic aortic stenosis I35.0 Essential hypertension I10 Venous stasis of both lower extremities I87.8 Time Spent (min) 30
== END 2024-02-26 15:48 | disposition home or self-care (01) ==
PROVIDERS: PCP Internal Medicine; Visit Provider Nurse Practitioner Family
DX: R07.2 Precordial pain (principal); I35.0 Nonrheumatic aortic (valve) stenosis; I10 Essential (primary) hypertension; I87.8 Other specified disorders of veins
CPT/HCPCS: 99214; G2211

== ENCOUNTER → 2024-02-26 14:54 | Outpatient (BNVA) | payer OTHER, SELFPAY | PROVIDERS: PCP Internal Medicine; Visit Provider Nurse Practitioner Family | DX: R07.2 Precordial pain (principal); I35.0 Nonrheumatic aortic (valve) stenosis; I10 Essential (primary) hypertension; I87.8 Other specified disorders of veins | CPT/HCPCS: 99212 ==

== ENCOUNTER 2024-02-29 10:46 | Outpatient (AMB) | payer OTHER, SELFPAY ==
--- NOTE | 2024-02-29 11:34 | MHC.PC.OV ---
Vital Signs 02/29/24 11:37 Height 5 ft 3 in Weight 156 lb 8 oz BMI 27.7 BP 128/62 Blood Pressure Location Lt brachial Position Sitting Pulse 72 Pulse Source Pulse Oximeter Pulse Oximetry (%) 95 Oxygen Delivery Method Room Air Intake Visit Reasons: 6 Month F/U Intake Note: Patient is here to follow up on DM, DJD, GERD, HLD. Scientific Software Engineer Required: No Autographer: Not Required per policy Accompanied by: Self / Same As Patient Allergies regadenoson [From Lexiscan] Adverse Reaction (Intermediate, Verified 02/29/24 11:36) Chest Pain Tobacco use date assessed: 02/29/24 Fall risk assessment: No Falls in past year Last assessed Fall Risk: 02/29/24 Dental Screening Dental Screen Date: 02/29/24 Did you have a dental visit in the last 12 months?: Yes Did you have a dental problem in the last 6 months where you did not have access to dental care?: No Was dental information given to patient?: Patient has dentist [facility] Medical History Hypothyroidism Elevated cholesterol HTN (hypertension) Type 2 diabetes mellitus Cognitive dysfunction GERD (gastroesophageal reflux disease) Osteopenia Hypothyroid Chronic cough History of neuropathy Chronic ankle pain Non-rheumatic aortic stenosis Pleuritic chest pain Chronic allergic rhinitis Asthma-COPD overlap syndrome ALISA (obstructive sleep apnea) Asthma Surgical History History of colonoscopy (~03/12/20) History of surgery on lower extremity History of back surgery History of thyroid surgery Family History Father Diabetes HTN (hypertension) Heart disease Mother Diabetes HTN (hypertension) Other Asthma Social History Household Members: None Housing: Apartment Alcohol intake: former Patient Tobacco Use Status: Former Tobacco user Tobacco use type: Cigarette Years Smoked: 10 years e-Cigarette/Vaping Use: Never Used Second Hand Smoke Exposure: Yes service: No Current occupational status: disabled Current occupational exposures/hazards: No Cognitive needs: Yes (cane) Hearing needs: No Vision needs: Yes Questionnaire PHQ-9 Over the last 2 weeks, how often have you been bothered by any of the following problems? 1. Little interest or pleasure in doing things: not at all 2. Feeling down, depressed, or hopeless: not at all 3. Trouble falling or staying asleep, or sleeping too much: not at all 4. Feeling tired or having little energy: not at all 5. Poor appetite or overeating: not at all 6. Feeling bad about yourself - or that you are a failure or have let yourself or your family down: not at all 7. Trouble concentrating on things, such as reading the newspaper or watching television: not at all 8. Moving or speaking so slowly that other people could have noticed. Or the opposite - being so fidgety or restless that you have been moving around a lot more than usual: not at all 9. Thoughts that you would be better off or of hurting yourself in some way: not at all Total score: 0 Depression Screening Interpretation: Negative Depression Screening Done: Yes Source: Developed by Drs. Moncho Pacheco, Ade Soto, Bill Goldman and colleagues, with an educational lisa from [employer]. Thrive Questionnaire Date Thrive assessed: 02/29/24 I am a: Patient What is your living situation today?: I have a steady place to live Within the past 12 months, did the food you bought not last and you didn't have the money to get more?: Never true Within the past 12 months, did you worry whether your food would run out before you got money to buy more?: Never true Do you have trouble paying for medicines?: No Do you have trouble getting transportation to medical appointments?: No Do you have trouble paying your heating and electricity bill?: No Do you have trouble taking care of your child, family member or friend?: No Do you have trouble with day-to-day activities such as bathing, preparing meals, shopping, managing finances, etc.?: No Are you currently unemployed and looking for a job?: No Are you interested in more education?: No Please select the resources that you would like help with: None Currently or been in a relationship where the following occur: No concerns reported THRIVE Score: 0 AUDIT C Alcohol Use Questionnaire (AUDIT-C) 1. How often do you have a drink containing alcohol?: Never Total Score: 0 ROSS-7 AMB Questionnaire ROSS-7 Date ROSS - 7 assessed: 02/29/24 Feeling nervous, anxious, or on edge: 0 = Not at all Not being able to stop or control worryin = Not at all Worrying too much about different things: 0 = Not at all Trouble relaxin = Not at all Being so restless that it is hard to sit still: 0 = Not at all Becoming easily annoyed or irritable: 0 = Not at all Feeling afraid as if something awful might happen: 0 = Not at all Total ROSS-7 score (0-4 normal; 5-9 mild; 10-14 moderate; 15-21 severe): 0 Source: Developed by Drs. Moncho Pacheco, Ade Soto, Bill Goldman and colleagues, with an educational lisa from [employer]. Physical exam (Primary Care) BMI result Body Mass Index 27.7 Tobacco/Smoking Status: Tobacco use Status Tobacco use date assessed 11/08/23 01/10/24 16:13 Patient Tobacco Use Status Former Tobacco user 01/10/24 16:13 Tobacco use type Cigarette 01/10/24 16:13 e-Cigarette/Vaping Use Never Used 01/10/24 16:13 Depression Screening Interpretation: Negative Thrive Assessment: Date of Thrive Assessment Date Thrive assessed 10/12/23 01/10/24 16:13 Currently or been in a relationship where the following occur: No concerns reported Results AMB Hemoglobin A1c AMB Hemoglobin A1c 6.5 % Last Edit by SUHAS Brown on 02/29/24 11:46 Coding Assessment & Plan Assessment & Plan Orders: Orders AMB Hemoglobin A1c Today E11.9 - Type 2 diabetes mellitus without complications Medications: Refilled pantoprazole 20 mg PO DAILY 30 tabs 3RF K21.9 - Gastro-esophageal reflux disease without esophagitis
[2024-02-29 11:37] VITALS: BP 128/62; PULSE 72; O2SAT 95; BMI 27.7
== END 2024-02-29 12:02 | disposition home or self-care (01) ==
PROVIDERS: PCP Internal Medicine; Visit Provider Internal Medicine
DX: E11.9 Type 2 diabetes mellitus without complications (principal)

== ENCOUNTER → 2024-02-29 10:46 | Outpatient (BNVA) | payer OTHER, SELFPAY | PROVIDERS: PCP Internal Medicine; Visit Provider Internal Medicine | DX: E11.9 Type 2 diabetes mellitus without complications (principal) | CPT/HCPCS: 83036; 99212 ==

== ENCOUNTER 2024-03-08 08:32 | Outpatient (REF) | payer OTHER, SELFPAY ==
--- NOTE | ~2024-03-08 | US_ITS ---
CLINICAL HISTORY: I87.8 - Other specified disorders of veins Venous duplex ultrasound bilateral lower extremity Comparison: None Findings: The visualized deep veins are fully compressible with normal Doppler color flow and spectral tracings. No popliteal cyst. Saphenous vein mapping was also performed. Please refer to the technologist's worksheet regarding measurements throughout the great saphenous veins and the small saphenous veins. No superficial vein thrombosis is identified. Mildly prominent right inguinal lymph node measuring 2 cm in long axis. This has a fatty hilum. IMPRESSION: 1. Negative for bilateral lower extremity deep vein thrombosis. 2. Saphenous vein mapping as above. This document has been electronically signed by: Daniel Obando MD on 03/09/2024 08:20:42
== END 2024-03-08 08:33 | disposition home or self-care (01) ==
LOC: HO.US 08:32
PROVIDERS: PCP Internal Medicine; Visit Provider Nurse Practitioner Family
DX: I87.8 Other specified disorders of veins (principal); R42 Dizziness and giddiness
CPT/HCPCS: 93970; 99212

== ENCOUNTER → 2024-03-08 08:35 | Outpatient (BNV) | payer OTHER, SELFPAY | PROVIDERS: PCP Internal Medicine; Visit Provider Radiology Diagnostic Radiology | DX: I87.8 Other specified disorders of veins (principal) | CPT/HCPCS: 93970 ==

== ENCOUNTER 2024-03-08 12:41 | Outpatient (AMB) | payer OTHER, SELFPAY ==
[2024-03-08 12:44] VITALS: BP 152/78; PULSE 79; O2SAT 98; BMI 27.5
--- NOTE | 2024-03-08 12:44 | A.OFFPC_ITS ---
Vital Signs 03/08/24 12:44 Height 5 ft 3 in Weight 155 lb BMI 27.5 BP 152/78 H Blood Pressure Location Lt brachial Position Sitting Pulse 79 Pulse Source Pulse Oximeter Pulse Oximetry (%) 98 Oxygen Delivery Method Room Air Intake Visit Reasons: Vertigo LT ear aching Die Cutter Operator Required: Yes Die Cutter Operator Language: Hebrew Allergies regadenoson [From Lexiscan] Adverse Reaction (Intermediate, Verified 03/08/24 12:45) Chest Pain Tobacco use date assessed: 02/29/24 Fall risk assessment: No Falls in past year Last assessed Fall Risk: 03/08/24 Dental Screening Dental Screen Date: 02/29/24 HPI HPI Comments History of Present Illness Details 73 y/o female patient who presents to e clinic today for c/o Vertigo for 4 days now. Denies any medication changes. Denies any head injury or trauma. [facility] Medical History Hypothyroidism Elevated cholesterol HTN (hypertension) Type 2 diabetes mellitus Cognitive dysfunction GERD (gastroesophageal reflux disease) Osteopenia Hypothyroid Chronic cough History of neuropathy Chronic ankle pain Non-rheumatic aortic stenosis Pleuritic chest pain Chronic allergic rhinitis Asthma-COPD overlap syndrome ALISA (obstructive sleep apnea) Asthma Surgical History History of colonoscopy (~03/12/20) History of surgery on lower extremity History of back surgery History of thyroid surgery Family History Father Diabetes HTN (hypertension) Heart disease Mother Diabetes HTN (hypertension) Other Asthma Social History Household Members: None Housing: Apartment Alcohol intake: former Patient Tobacco Use Status: Former Tobacco user Tobacco use type: Cigarette Years Smoked: 10 years e-Cigarette/Vaping Use: Never Used Second Hand Smoke Exposure: Yes service: No Current occupational status: disabled Current occupational exposures/hazards: No Cognitive needs: Yes (cane) Hearing needs: No Vision needs: Yes Questionnaire PHQ-9 Over the last 2 weeks, how often have you been bothered by any of the following problems? 1. Little interest or pleasure in doing things: not at all 2. Feeling down, depressed, or hopeless: not at all 3. Trouble falling or staying asleep, or sleeping too much: not at all 4. Feeling tired or having little energy: not at all 5. Poor appetite or overeating: not at all 6. Feeling bad about yourself - or that you are a failure or have let yourself or your family down: not at all 7. Trouble concentrating on things, such as reading the newspaper or watching television: not at all 8. Moving or speaking so slowly that other people could have noticed. Or the opposite - being so fidgety or restless that you have been moving around a lot more than usual: not at all 9. Thoughts that you would be better off or of hurting yourself in some way: not at all Total score: 0 Depression Screening Interpretation: Negative Depression Screening Done: Yes Source: Developed by Drs. Moncho Pacheco, Ade Soto, Bill Goldman and colleagues, with an educational lisa from [employer]. Thrive Questionnaire Date Thrive assessed: 02/29/24 AUDIT C Alcohol Use Questionnaire (AUDIT-C) 1. How often do you have a drink containing alcohol?: Never Total Score: 0 ROSS-7 AMB Questionnaire ROSS-7 Date ROSS - 7 assessed: 02/29/24 Source: Developed by Drs. Moncho Pacheco, Ade Soto, Bill Goldman and colleagues, with an educational lisa from [employer]. Review of Systems Const All systems reviewed & are unremarkable except as noted in HPI and below Physical exam (Primary Care) Vital Signs: Last Vital Signs Pulse 79 03/08/24 12:44 BP 152/78 H 03/08/24 12:44 Pulse Ox 98 03/08/24 12:44 Oxygen Delivery Method Room Air 03/08/24 12:44 BMI result Body Mass Index 27.5 Tobacco/Smoking Status: Tobacco use Status Tobacco use date assessed 02/29/24 03/08/24 12:52 Patient Tobacco Use Status Former Tobacco user 03/08/24 12:52 Tobacco use type Cigarette 03/08/24 12:52 e-Cigarette/Vaping Use Never Used 03/08/24 12:52 PHQ-9: PHQ-9 Score PHQ-9: Total score 0 03/08/24 12:58 Depression Screening Interpretation: Negative Thrive Assessment: Date of Thrive Assessment Date Thrive assessed 02/29/24 03/08/24 12:52 Const Orientation/consciousness: patient oriented x3 HENMT Head: Yes normocephalic Ears: external ears normal and TM abnormal with fluid behind the TM bilateral General nose exam: Normal external nose present Face and sinus: Yes sinuses nontender Mouth: moist mucous membranes Resp Effort & Inspection: normal respiratory effort and able to speak in complete sentences Auscultation: clear to auscultation bilaterally Cardio Heart sounds: S1 normal heart sound present and S2 normal heart sound present Neuro General: patient oriented x3, gait normal and moves all extremities Psych Speech and movement: Normal speech and movement present Coding Level of Care Code Est Pt Level 3 (62183) Diagnoses Vertigo R42 Time Spent (min) 15 Assessment & Plan Assessment & Plan (1) Vertigo: Code(s): R42 - Dizziness and giddiness Plan: Hydrate well with plenty of fluids Obtain enough rest. Take Zyrtec as directed. Medications: New meclizine 50 mg PO BID 60 tabs 0RF R42 - Dizziness and giddiness cetirizine (Zyrtec) 10 mg PO DAILY 60 tabs 0RF R42 - Dizziness and giddiness
== END 2024-03-08 13:59 | disposition home or self-care (01) ==
PROVIDERS: PCP Internal Medicine; Visit Provider Nurse Practitioner Family
DX: R42 Dizziness and giddiness (principal)

== ENCOUNTER 2024-03-18 11:00 | Outpatient (RCR) | payer OTHER, SELFPAY ==
--- NOTE | 2024-03-18 11:57 | MHC.SL.SOA ---
Referring Provider: Jennifer PRADO Reason for Referral: ?Pt advised to have PROCESS ENG eval and tx- for cognitive tx? Date of Plan of Treatment:10/18/23 Onset of Symptoms/Illness:05/16/23 Date Treatment Started:10/18/23 Medical Diagnosis:F09 Cognitive dysfunction Primary Speech Language Diagnosis:R41.841 Cognitive communication disorder Number of Authorized Visits Remainin Reason for Visit:[id number] Individual Treatment Subjective: Joanna arrived on time for her last speech therapy appointment today. Joanna was in positive spirits as usual. She was fully attentive to all tasks indicated for today's session and kindly expressed gratitude for what she has learned throughout her course of treatment. Objective: 1.1. Patient will demonstrate mental flexibility by identifying 2 possible solutions to safety situations in 80% of trials with minimal assistance. Goal Discharged: Patient identified 2+ solutions to problems described in paragraphs in >90% of trials independently. 1.2. Patient will listen to auditory information (i.e. voicemail, ads, instructions for medication dosage, invitations) and make note of pertinent information in 80% of opportunities with minimal verbal cues. Goal Met: Patient answered WH-questions about spoken paragraphs with >90% accuracy and minimal verbal cues. 1.3. Patient will use internal memory strategies (visualization, verbal rehearsal, association) to recall 4 pieces of information (i.e. grocery lists, to-do lists) with 80% accuracy and 1-2 repetitions. Goal Met: Patient used verbal rehearsal and association strategies to recall 3-4 word lists with >90% accuracy and minimal assistance. She then recited the same lists in alphabetical order, targeting mental manipulation skills, and completed the activity with 80% accuracy and minimal to moderate assistance. 1.4. Patient will electively use an issac or tech device to record and retrieve needed information in 4 out of 5 contexts with minimal verbal prompting. Goal Discharged: Patient prefers to use dgj-fzz-eotgt methods over electronic devices. Patient reports she keeps a notebook for notes, and references calendars and planners. This was evidenced throughout our treatment sessions as well, as patient indicated schedule changes and home assignment details. Assessment: Joanna utilizes internal and external reminders for immediate and delayed recall. Verbal and visual cues have been faded, as Joanna is observed to employ these strategies on her own. When practicing immediate recall with word lists, Joanna is observed to count items on her fingers. She also verbally rehearses these lists several times before repeating them aloud for the clinician and then successfully performing mental manipulation tasks (i.e. repeating back in reverse or alphabetical order). When reading paragraphs, Joanna points to or guzman fan terms and is able to recall specific details in order to answer WH-questions with 80-90% accuracy. She recognizes details from multiple choices or true/false with improved accuracy. At home, she writes notes for herself in a notebook, keeps a large calendar at home, and carries a conservation planner with her everywhere. Activities throughout treatment also targeted word retrieval and semantic relationships, as patient evidenced some hesitancies finding words. Joanna is often able to recall words when they are described for her and is able to employ this strategy of circumlocution as a means of self-cuing as well. Notes: Joanna expressed that she felt satisfied with the progress she has made thus far in treatment and is agreeable to discharge at this time. Joanna says she will continue to read everyday, complete cross word puzzles in the newspaper, and use learned tools and strategies for her memory. It has been an absolute pleasure working with Joanna. Please do not hesitate to contact [facility] if we can be of further assistance in her care. Plan: Goal # : 1.1. Patient will demonstrate mental flexibility by identifying 2 possible solutions to safety situations in 80% of trials with minimal assistance. Status of Goal: Discharge Goal Goal # : 1.2. Patient will listen to auditory information (i.e. voicemail, ads, instructions for medication dosage, invitations) and make note of pertinent information in 80% of opportunities with minimal verbal cues. Status of Goal: Goal Met Goal # : 1.3. Patient will use internal memory strategies (visualization, verbal rehearsal, association) to recall 4 pieces of information (i.e. grocery lists, to-do lists) with 80% accuracy and 1-2 repetitions. Status of Goal: Goal Met Goal # : 1.4. Patient will electively use an issac or tech device to record and retrieve needed information in 4 out of 5 contexts with minimal verbal prompting. Status of Goal: Discharge Goal Seen by: Graduate/Clinical Fellow: No Supervisory Statement: f_Reg Query Last Value , MHC.AU.SIGNATUR Speech Language Pathologist: Joan Bain M.A., [facility]-PROCESS ENG
== END 2024-03-18 15:39 | disposition home or self-care (01) ==
LOC: HO.SH 11:00
PROVIDERS: PCP Internal Medicine; Visit Provider Nurse Practitioner Family
DX: F09 Unspecified mental disorder due to known physiological condition (principal)
CPT/HCPCS: 92507

== ENCOUNTER 2024-04-10 11:35 | Outpatient (REF) | payer OTHER, SELFPAY | END 2024-04-10 11:36 | disposition home or self-care (01) | LOC: HO.MAMMO 11:35 | PROVIDERS: PCP Internal Medicine; Visit Provider Internal Medicine | DX: Z13.89 Encounter for screening for other disorder (principal) ==

== ENCOUNTER 2024-04-12 09:12 | Outpatient (AMB) | payer OTHER, SELFPAY ==
[2024-04-12 09:16] VITALS: BP 126/80; PULSE 74; O2SAT 95; BMI 28.2
--- NOTE | 2024-04-12 09:16 | MHC.PC.OV ---
Vital Signs 04/12/24 09:16 Height 5 ft 3 in Weight 159 lb 6 oz BMI 28.2 BP 126/80 Blood Pressure Location Lt brachial Position Sitting Pulse 74 Pulse Source Pulse Oximeter Pulse Oximetry (%) 95 Oxygen Delivery Method Room Air Intake Visit Reasons: mammogram orders Donor Services Team Leader Required: No Accompanied by: Self / Same As Patient Allergies regadenoson [From Lexiscan] Adverse Reaction (Intermediate, Verified 04/12/24 09:51) Chest Pain Medication List - Last Reconciled 04/12/24 by Dank Garrison MD albuterol sulfate 90 mcg/actuation 2 puffs inhalation Q6H PRN 30 days albuterol sulfate 2.5 mg (3 mL) inhalation Q6H PRN amlodipine 5 mg PO DAILY ascorbic acid (vitamin C) 500 mg PO DAILY aspirin 81 mg PO DAILY azelastine 2 sprays intranasal BID 30 days [Bed pads As directed] blood-glucose meter (FreeStyle Lite Meter kit) test daily carvedilol 6.25 mg PO BID cetirizine (Zyrtec) 10 mg PO DAILY cholecalciferol (vitamin D3) 25 mcg PO DAILY CPAP (CPAP Machine/Device) As directed [DIABETIC SHOES As directed] docusate sodium (Colace) 100 mg PO BID fluticasone propionate 50 mcg/actuation 2 sprays intranasal DAILY 30 days vihzkhqunfg-jydiohgtw-asczgnua 200-62.5-25 mcg (Trelegy Ellipta) 1 inh inhalation DAILY 30 days hydrocortisone 2.5% 1 appl topical BID PRN ibuprofen 600 mg PO Q6H PRN [incontinence wipes As directed] ipratropium bromide 2 sprays intranasal TID PRN ipratropium-albuterol 0.5 mg-3 mg(2.5 mg base)/3 mL 3 mL inhalation Q6H PRN levothyroxine 100 mcg PO DAILY losartan 50 mg PO DAILY meclizine 50 mg PO BID memantine 28 mg PO DAILY 90 days [Metal Shower handles As directed] metformin 500 mg PO DAILY montelukast 10 mg PO BEDTIME nebulizers As directed pantoprazole 20 mg PO DAILY peg 3350-electrolytes 236-22.74-6.74 -5.86 gram (Golytely) 240 mL PO Q10M [pull up As directed] Saccharomyces boulardii (Daily Probiotic (S. boulardii)) 5,000 mmu cells PO DAILY [sanitary pads kotex As directed] sennosides (Natural Senna Laxative) 17.2 mg (2 x 8.6 mg) PO DAILY 90 days sertraline 50 mg PO DAILY simvastatin 20 mg PO BEDTIME [tumeric 1 tab PO DAILY] Tobacco use date assessed: 04/12/24 Fall risk assessment: No Falls in past year Last assessed Fall Risk: 04/12/24 Dental Screening Dental Screen Date: 04/12/24 Did you have a dental visit in the last 12 months?: Yes Did you have a dental problem in the last 6 months where you did not have access to dental care?: No Was dental information given to patient?: Patient has dentist HPI mammogram orders HPI Details Patient comes in today may need to request for a mammogram order States that she felt a small lump just above her left breast yesterday and is concerned about this Recalls that the lump was slightly tender on pressure States that [facility] but was reportedly advised that she will need to get her PCP to place an order for mammogram I am seeing patient today as her PCP is out of the office Patient states that she feels well otherwise and has no other acute issues at this time [facility] Medical History Hypothyroidism Elevated cholesterol HTN (hypertension) Type 2 diabetes mellitus Cognitive dysfunction GERD (gastroesophageal reflux disease) Osteopenia Hypothyroid Chronic cough History of neuropathy Chronic ankle pain Non-rheumatic aortic stenosis Pleuritic chest pain Chronic allergic rhinitis Asthma-COPD overlap syndrome ALISA (obstructive sleep apnea) Asthma Surgical History History of colonoscopy (~03/12/20) History of surgery on lower extremity History of back surgery History of thyroid surgery Family History Father Diabetes HTN (hypertension) Heart disease Mother Diabetes HTN (hypertension) Other Asthma Social History Household Members: None Housing: Apartment Alcohol intake: former Patient Tobacco Use Status: Former Tobacco user Tobacco use type: Cigarette Years Smoked: 10 years e-Cigarette/Vaping Use: Never Used Second Hand Smoke Exposure: Yes service: No Current occupational status: disabled Current occupational exposures/hazards: No Cognitive needs: Yes (cane) Hearing needs: No Vision needs: Yes Questionnaire PHQ-9 Over the last 2 weeks, how often have you been bothered by any of the following problems? 1. Little interest or pleasure in doing things: not at all 2. Feeling down, depressed, or hopeless: not at all 3. Trouble falling or staying asleep, or sleeping too much: not at all 4. Feeling tired or having little energy: not at all 5. Poor appetite or overeating: not at all 6. Feeling bad about yourself - or that you are a failure or have let yourself or your family down: not at all 7. Trouble concentrating on things, such as reading the newspaper or watching television: not at all 8. Moving or speaking so slowly that other people could have noticed. Or the opposite - being so fidgety or restless that you have been moving around a lot more than usual: not at all 9. Thoughts that you would be better off or of hurting yourself in some way: not at all Total score: 0 Depression Screening Interpretation: Negative Depression Screening Done: Yes 29788 - PHQ-9 Billing: Yes Source: Developed by Drs. Moncho Pacheco, Ade Soto, Bill Goldman and colleagues, with an educational lisa from [employer]. Thrive Questionnaire Date Thrive assessed: 04/12/24 I am a: Patient What is your living situation today?: I have a steady place to live Within the past 12 months, did the food you bought not last and you didn't have the money to get more?: Never true Within the past 12 months, did you worry whether your food would run out before you got money to buy more?: Never true Do you have trouble paying for medicines?: No Do you have trouble getting transportation to medical appointments?: No Do you have trouble paying your heating and electricity bill?: No Do you have trouble taking care of your child, family member or friend?: No Do you have trouble with day-to-day activities such as bathing, preparing meals, shopping, managing finances, etc.?: No Are you currently unemployed and looking for a job?: No Are you interested in more education?: No Please select the resources that you would like help with: None Currently or been in a relationship where the following occur: No concerns reported THRIVE Score: 0 AUDIT C Alcohol Use Questionnaire (AUDIT-C) 1. How often do you have a drink containing alcohol?: Never 3. How often do you have six or more drinks on one occasion?: Never Total Score: 0 Score Reviewed/Action Taken: Yes ROSS-7 AMB Questionnaire ROSS-7 Date ROSS - 7 assessed: 04/12/24 Feeling nervous, anxious, or on edge: 0 = Not at all Not being able to stop or control worryin = Not at all Worrying too much about different things: 0 = Not at all Trouble relaxin = Not at all Being so restless that it is hard to sit still: 0 = Not at all Becoming easily annoyed or irritable: 0 = Not at all Feeling afraid as if something awful might happen: 0 = Not at all Total ROSS-7 score (0-4 normal; 5-9 mild; 10-14 moderate; 15-21 severe): 0 Source: Developed by Drs. Moncho aPcheco, Ade Soto, Bill Goldman and colleagues, with an educational lisa from [employer]. Review of Systems Const Denies fatigue, Denies fever(s) and Denies headache(s) ENT Denies dizziness, Denies headache(s), Denies neck pain and Denies sore throat Card Denies chest pain, Denies palpitations and Denies dyspnea Resp Denies cough and Denies dyspnea GI Denies abdominal pain, Denies heartburn, Denies nausea and Denies vomiting Musc Denies neck pain Skin/Breast Reports breast mass ((+) small lump just above the left breast; is slightly tender on palpation) Neuro Denies dizziness and Denies headache(s) Endo Denies fatigue and Denies palpitations Physical exam (Primary Care) Vital Signs: Last Vital Signs Pulse 74 04/12/24 09:16 BP 126/80 04/12/24 09:16 Pulse Ox 95 04/12/24 09:16 Oxygen Delivery Method Room Air 04/12/24 09:16 BMI result Body Mass Index 28.2 Tobacco/Smoking Status: Tobacco use Status Tobacco use date assessed 04/12/24 04/12/24 09:26 Patient Tobacco Use Status Former Tobacco user 04/12/24 09:26 Tobacco use type Cigarette 04/12/24 09:26 e-Cigarette/Vaping Use Never Used 04/12/24 09:26 PHQ-9: PHQ-9 Score PHQ-9: Total score 0 04/12/24 09:26 Depression Screening Interpretation: Negative Thrive Assessment: Date of Thrive Assessment Date Thrive assessed 04/12/24 04/12/24 09:26 Currently or been in a relationship where the following occur: No concerns reported Const General: no acute distress and alert Neck Neck: Yes no lymphadenopathy and Yes supple Chest Other: NO palpable lump or lesion over or above the left breast noted at this time but patient points to the area just above her left breast at around the 11 o'clock position as to where she felt a lump yesterday Resp Auscultation: clear to auscultation bilaterally, no rales and no wheezes Cardio Rate: regular rate Rhythm: regular rhythm Heart sounds: no murmurs GI Palpation (GI): Soft to palpation and nontender Extrem General: Yes no clubbing, cyanosis or edema Coding Level of Care Code Est Pt Level 3 (90010) Diagnoses Breast lump on left side at 11 o'clock position N63.22 Additional Codes PHQ-9 - 03254 - PHQ-9 Billing: Yes ([id number]) Assessment & Plan Assessment & Plan (1) Breast lump on left side at 11 o'clock position: Code(s): N63.22 - Unspecified lump in the left breast, upper inner quadrant Category: Medical Plan: Will send patient for diagnostic mammogram for further evaluation but discussed the lump she felt yesterday is likely just a subcutaneous cyst or a palpable lymph node? Plan To return as scheduled in September 2024 for her annual physical examination with her PCP Orders: Orders MM tomosynthesis diagnostic BI Today N63.22 - Unspecified lump in the left breast, upper inner quadrant
--- OUTSIDE RECORDS SUMMARY | 2024-04-12 09:39 | XMS_ITS | Encounter Summary ---
Author Organization [employer] Address [address] [place] [address] [address] [place] [address] Care Team Providers Care Chairman Emeritus Name Role Phone Unavailable Primary Care Provider Unavailabl e Encounter Details Date Type Department Care Team (Latest Contact Info) Description 12/24/2021 Abstract [facility] CONVERSIONS Dental, Provider, DDS Social History Tobacco Use Types Packs/Day Years Used Date Smoking Tobacco: Never Assessed Comments Unknown Sex and Gender Information Value Date Recorded Sex Assigned at Female 12/20/2021 10:34 AM EDT Legal Sex Female 10:34 AM EDT Gender Identity Female 12/20/2021 10:34 AM EDT Sexual Orientation Straight 09/05/2023 10 :53 AM EDT documented as of this encounter Plan of Treatment Upcoming Encounters Date Type Department Care Team (Late st Contact Info) Description 09/13/2024 3:00 PM EDT Office Visit [facility] ADULT DENTAL [address] [place] [address] Delaney, Madeline [address] [place] [address] documented as of this encounter Visit Diagnoses Not on filedocumented in this encounter
--- OUTSIDE RECORDS SUMMARY | 2024-04-12 09:39 | XMS_ITS | Encounter Summary ---
Author Organization [id number] Address [address] [place] [address] [address] [place] [address] Care Team Providers Care Psychological Examiner Name Role Phone Unavailable Primary Care Provider Unavailabl e Encounter Details Date Type Department Care Team (Late st Contact Info) Description 01/26/2022 Abstract [facility] ADULT DENTAL [address] [place] [address] Dental, Provider, DDS Social History Tobacco Use Types Packs/Day Years Used Date Smoking Tobacco: Never Assessed Comments Unknown Sex and Gender Information Value Date Recorded Sex Assigned at Female 12/20/2021 10:34 AM EDT Legal Sex Female 10:34 AM EDT Gender Identity Female 12/20/2021 10:34 AM EDT Sexual Orientation Straight 09/05/2023 10 :53 AM EDT COVID-19 Exposure Response Date Recorded In the last 10 days, have andrzej gibson been in contact with someone who was confirmed or suspected to have Coronavirus/COVID-19? No / Unsure 01/28/2022 12:58 PM EST documented as of this encounter Plan of Treatment Upcoming Encounters Date Type Department Care Team (Late st Contact Info) Description 09/13/2024 3:00 PM EDT Office Visit [facility] ADULT DENTAL [address] [place], [place] [phone] Delaney Madeline [address] [place], [place] [phone] documented as of this encounter Procedures Procedure Name Priority Date/Time Associated Diagnosis Comments 4 RETAINER CROWN - PORCELAIN FUSED TO VILLAREAL METAL Routine 01/26/2022 12:00 AM EST 2 RETAINER CROWN - PORCELAIN FUSED TO VILLAREAL METAL Routine 01/26/2022 12:00 AM EST 3 PONTIC - PORCELAIN FUSED TO VILLAREAL METAL Routine 01/26/2022 12:00 AM EST 29 CROWN - PORCELAIN/CERAMIC Routine 01/26/2022 12:00 AM EST 28 MOBB(V)L COMPOSITE FILLING Routine 01/26/2022 12:00 AM EST 12 (V) COMPOSITE FILLING Routine 01/26/2022 12:00 AM EST 10 MIFL COMPOSITE FILLING Routine 01/26/2022 12:00 AM EST 5 BB(V) COMPOSITE FILLING Routine 01/26/2022 12:00 AM EST 18 O AMALGAM FILLING Routine 01/26/2022 12:00 AM EST 15 O AMALGAM FILLING Routine 01/26/2022 12:00 AM EST 32 EXTRACTION Routine 01/26/2022 12:00 AM EST 31 EXTRACTION Routine 01/26/2022 12:00 AM EST 30 EXTRACTION Routine 01/26/2022 12:00 AM EST 17 EXTRACTION Routine 01/26/2022 12:00 AM EST 19 EXTRACTION Routine 01/26/2022 12:00 AM EST 9 EXTRACTION Routine 01/26/2022 12:00 AM EST 3 EXTRACTION Routine 01/26/2022 12:00 AM EST 1 EXTRACTION Routine 01/26/2022 12:00 AM EST 29 ROOT CANAL Routine 01/26/2022 12:00 AM EST documented in this encounter Visit Diagnoses Not on filedocumented in this encounter
--- OUTSIDE RECORDS SUMMARY | 2024-04-12 09:39 | XMS_ITS | Encounter Summary ---
Author Organization [facility] Address [address] [place] [address] Care Team Providers Care Kitchen Operator Name Role Phone Robinson Howe MD Primary Care Provider [phone] Jesus Monterroso MD Primary Care Provider Abram Flores MD Primary Care Provider Michael Hinojosa MD Primary Care Provider Driss nguyen [facility], Pcp Primary Care Provider Napoleon Mejia Primary Care Provider [phone] [facility], Pcp Primary Care Provider Maria T grace Encounter Details Date Type Department Care Team Description 08/08/2017 Business Doc Medical Records [address] [place] [id number] Abstract, Provider Social History Tobacco Use Types Packs/Day Years Used Date Smoking Tobacco: Former Cigarettes 1 10 Q uit: 04/24/1977 Smokeless Tobacco: Former Alcohol Use Standard Drinks/Week Comments No 0 (1 standard drink = 0.6 oz pur e alcohol) Sex Assigned at Date Recorded Not on file Job Start Date Occupation Industry Not on file Not on file Not on file documented as of this encounter Plan of Treatment Not on file documented as of this encounter Visit Diagnoses Not on filedocumented in this encounter Care Teams Kitchen Operator Relationship Specialty Start Date End Date Robinson Howe MD [address] [place] [phone] PCP - General Internal Medicine 11/03/14 04/13/20 Jesus Monterroso MD [address] [place] [phone] PCP - General Internal Medicine 04/14/20 07/05/20 Abram Gardner MD [address] [place] [id number] PCP - General Internal Medicine 07/06/20 12/24/20 Michael Gillette MD [address] [place] [id number] PCP - General Internal Medicine 12/25/20 06/28/21 [facility], Pcp [address] [place], [place] [phone] PCP - General Internal Medicine 06/29/21 11/14/21 Napoleon Linda [address] [place] [id number] PCP - General Internal Medicine 11/15/21 04/20/22 [facility], Pcp [address] [place] [id number] PCP - General Internal Medicine 04/21/22 documented as of this encounter
--- OUTSIDE RECORDS SUMMARY | 2024-04-12 09:39 | XMS_ITS | Encounter Summary ---
Author Organization [facility] Address [address] [place] [address] Care Team Providers Care Research Editor Name Role Phone Robinson Howe MD Primary Care Provider + [phone] Jesus Monterroso MD Primary Care Provider Abram Flores MD Primary Care Provider Unavailab Michael Duvall MD Primary Care Provider Driss nguyen [facility], Pcp Primary Care Provider Unavailabl Napoleon Ramirez Primary Care Provider [phone] [facility], Pcp Primary Care Provider Unavailabl e Reason for Visit * Reason Onset Date Comments Faxed Refill 12/10/2019 Encounter Details Date Type Department Care Team Description 12/10/2019 Refill Adult Medicine [address] [id number] Robinson Howe MD [address] [place] [address] [phone] Faxed Refill Social History Tobacco Use Types Packs/Day Years Used Date Smoking Tobacco: Former Cigarettes 1 10 0 08/31/1963 - 04/24/1977 Smokeless Tobacco: Former Alcohol Use Standard Drinks/Week Comments No 0 (1 standard drink = 0.6 oz pur e alcohol) Sex Assigned at Date Recorded Not on file Job Start Date Occupation Industry Not on file Not on file Not on file COVID-19 Exposure Response Date Recorded In the last month, have you been in contact with someone who was confirmed or suspected to have Coronavirus / COVID-19? Yes 11/22/2019 9:51 AM EDT documented as of this encounter Miscellaneous Notes * Telephone Encounter - Mary Benton M.A. - 12/10/2019 1:52 PM EDT Lab Results Component Value Date HGBA1C 6.4 10/02/2019 MALBUR 27.0 10/02/2019 MALBCR 28.4 10/02/2019 CHOL 180 10/02/2019 LDL 103 10/02/2019 HDL 51 10/02/2019 TRIG 131 10/02/2019 GLU 86 12/02/2019 CREAT 0.74 12/02/2019 * Telephone Encounter - Genie Capellan - 12/10/2019 11:23 AM EDT Patient would like script to be: E-PRESCRIBED/FAXED TO PHARMACY WHEN WAS THE PATIENT'S LAST APPOINTMENT IN ADULT MEDICINE? 11/22/19 WHEN WAS THE LAST TIME THE PATIENT SAW THEIR PCP? 06/18/19 Does patient have an upcoming appointment? Yes 02/25/20 (THE MEDICATION REQUESTED IS ON THE MED LIST ABOVE) All of the medications requested were on the CURRENT MEDS list Did you check the Pharmacy information above?: YES Patient wants: 90 -day supply Is this a mail order prescription request ? NO If the refill is from a FAXED refill request what is the RX # listed on the fax? N/A Patients current insurance carrier is: Payor: [facility] MCR / Plan: HMO $0 [facility] [id number] / Product Type: HMO [id number] documented in this encounter Plan of Treatment Not on file documented as of this encounter Visit Diagnoses Not on filedocumented in this encounter Care Teams Research Editor Relationship Specialty Start Date End Date Robinson Howe MD [address] [place] [address] PCP - General Internal Medicine 11/03/14 04/13/20 Jesus Monterroso MD [address] [place] [address] PCP - General Internal Medicine 04/14/20 07/05/20 Abram Gardner MD [address] [place] [address] PCP - General Internal Medicine 07/06/20 12/24/20 Michael Gillette MD [address] [place], [place] [id number] PCP - General Internal Medicine 12/25/20 06/28/21 [facility], Pcp [address] [place] [address] PCP - General Internal Medicine 06/29/21 11/14/21 Napoleon Linda [address] [place] [address] PCP - General Internal Medicine 11/15/21 04/20/22 [facility], Pcp [address] [place] [address] PCP - General Internal Medicine 04/21/22 documented as of this encounter
--- OUTSIDE RECORDS SUMMARY | 2024-04-12 09:39 | XMS_ITS | Encounter Summary ---
Author Organization [facility] Address [address] [place] [address] Care Team Providers Care Abstractor Name Role Phone Robinson Howe MD Primary Care Provider + [phone] Jesus Monterroso MD Primary Care Provider Abram Flores MD Primary Care Provider Unavailab Michael Duvall MD Primary Care Provider Driss nguyen [facility], Pcp Primary Care Provider Unavailabl e Napoleon Linda Primary Care Provider [phone] [facility], Pcp Primary Care Provider Unavailabl e Reason for Visit * Reason Onset Date Comments Faxed Refill 02/09/2020 Encounter Details Date Type Department Care Team Description 02/09/2020 Refill Adult Medicine [address] [phone] Robinson Howe MD [address] [place] [address] [phone] Faxed Refill Social History Tobacco Use Types [...] on file documented as of this encounter Miscellaneous Notes * Telephone Encounter - Raymond Schneider M.A. - 02/10/2020 9:58 AM EST Faxed to pharmacy * Telephone Encounter - Tiffanie Hough M.A. - 02/10/2020 7:48 AM EST [facility] 10/22/2019 telehealth F/U appt 02/25/2020 Lab Results Component Value Date NA 138 12/02/2019 K 4.6 12/02/2019 CO2 27 12/02/2019 CL 107 12/02/2019 BUN 17 12/02/2019 CREAT 0.74 12/02/2019 GLU 86 12/02/2019 CA 9.3 12/02/2019 GFR > 60 12/02/2019 * Telephone Encounter - Genie Capellan - 02/09/2020 11:36 AM EST Patient would like script to be: E-PRESCRIBED/FAXED TO PHARMACY ?? WHEN WAS THE PATIENT'S LAST APPOINTMENT IN ADULT MEDICINE? 12/02/19 ?? WHEN WAS THE LAST TIME THE PATIENT SAW THEIR PCP? 06/18/19 ?? Does patient have an upcoming appointment? Yes 02/25/20 ?? (THE MEDICATION REQUESTED IS ON THE MED LIST ABOVE) All of the medications requested were on the CURRENT MEDS list ?? Did you check the Pharmacy information above?: YES ?? Patient wants: 90 -day supply ?? Is this a mail order prescription request ? NO ?? If the refill is from a FAXED refill request what is the RX # listed on the fax? N/A ?? Patients current insurance carrier is: Payor: [facility] MCR / Plan: HMO $0 [facility] [id number] / Product Type: HMO [id number] ?? documented in this encounter Plan of Treatment Not on file documented as of this encounter Visit Diagnoses Not on filedocumented in this encounter Care Teams Abstractor Relationship Specialty Start Date End Date Robinson Howe MD [address] [place] [address] PCP - General Internal Medicine 11/03/14 04/13/20 Jesus Monterroso MD [address] [place] [address] PCP - General Internal Medicine 04/14/20 07/05/20 Abram Gardner MD [address] [place], [place] [phone] PCP - General Internal Medicine 07/06/20 12/24/20 Michael Gillette MD [address] [place], [place] [phone] PCP - General Internal Medicine 12/25/20 06/28/21 [facility], Pcp [address] [place] [address] PCP - General Internal Medicine 06/29/21 11/14/21 Napoleon Linda [address] [place], [place] [phone] PCP - General Internal Medicine 11/15/21 04/20/22 [facility], Pcp [address] [place], [place] [phone] PCP - General Internal Medicine 04/21/22 documented as of this encounter
--- OUTSIDE RECORDS SUMMARY | 2024-04-12 09:39 | XMS_ITS | Encounter Summary ---
Author Organization [facility] Address [address] [place] [address] Care Team Providers Care Case Hardener Name Role Phone Robinson Howe MD Primary Care Provider [phone] Jesus Monterroso MD Primary Care Provider Abram Flores MD Primary Care Provider UnavailMichael Elmore MD Primary Care Provider Driss nguyen [facility], Pcp Primary Care Provider UnavailNapoleon White Primary Care Provider [phone] [facility], Pcp Primary Care Provider Unavailguido e Encounter Details Date Type Department Care Team Description 11/11/2019 Telephone Adult Medicine [address] [phone] Robinson Howe MD [address] [place] [address] [phone] Social History Tobacco Use Types Packs/Day Years [...] or suspected to have Coronavirus / COVID-19? No / Unsure 11/06/2019 10:54 AM EDT documented as of this encounter Plan of Treatment Not on file documented as of this encounter Visit Diagnoses Not on filedocumented in this encounter Care Teams Case Hardener Relationship Specialty Start Date End Date Robinson Howe MD [address] [place] [address] PCP - General Internal Medicine 11/03/14 04/13/20 Jesus Monterroso MD [address] [place] [address] PCP - General Internal Medicine 04/14/20 07/05/20 Abram Gardner MD [address] [place] [address] PCP - General Internal Medicine 07/06/20 12/24/20 Michael Gillette MD [address] [place] [address] PCP - General Internal Medicine 12/25/20 06/28/21 [facility], Pcp [address] [place] [address] PCP - General Internal Medicine 06/29/21 11/14/21 Napoleon Linda [address] [place] [address] PCP - General Internal Medicine 11/15/21 04/20/22 [facility], Pcp [address] [place], [place] [phone] PCP - General Internal Medicine 04/21/22 documented as of this encounter
--- OUTSIDE RECORDS SUMMARY | 2024-04-12 09:39 | XMS_ITS | Encounter Summary ---
Author Organization [employer] Address [address] [place] [address] [address] [place] [address] Care Team Providers Care Spinning Room Worker Name Role Phone Unavailable Primary Care Provider Unavailabl e Reason for Visit * Reason Onset Date Comments Durable Medical Equipment 01/18/2023 Encounter Details Date Type Department Care Team ([facility] st Contact Info) Description 01/18/2023 Telephone [facility] MEDICINE [address] [place] [address] Jesus Wiseman MD [address] [place], [place] [phone] Durable Medical Equipment Social History Tobacco Use Types Packs/Day Years Used Date Smoking Tobacco: Former Cigarettes Passive Smoke Exposure: Never Smokeless Tobacco: Never Alcohol Use Standard Drinks/Week Comments Never 0 (1 standard drink = 0.6 oz pur e alcohol) Comments Unknown Sex and Gender Information Value Date Recorded Sex Assigned at Female 12/20/2021 10:34 AM EDT Legal Sex Female 10:34 AM EDT Gender Identity Female 12/20/2021 10:34 AM EDT Sexual Orientation Straight 09/05/2023 10 :53 AM EDT documented as of this encounter Miscellaneous Notes * Telephone Encounter - Ayaan Jamie - 01/18/2023 4:39 PM EST Tc from [facility]ana working with [facility] requesting the following. Pull ups size Medium 4 per day, Wipes 4 per month, Disposable bed pads 2 per day, and she [id number] refills for all the supply's. Any questions please contact Susana at [phone] ext [phone] FYI after further inspection this pt does not seem active. documented in this encounter Plan of Treatment Upcoming Encounters Date Type Department Care Team (Late st Contact Info) Description 09/13/2024 3:00 PM EDT Office Visit [facility] ADULT DENTAL [address] [place] [address] Madeline Baltazar [address] [place] [address] documented as of this encounter Visit Diagnoses Not on filedocumented in this encounter
--- OUTSIDE RECORDS SUMMARY | 2024-04-12 09:39 | XMS_ITS | Encounter Summary ---
Author Organization [facility] Address [address] [place] [address] Care Team Providers Care Provider Education Specialist Name Role Phone Robinson Howe MD Primary Care Provider + [phone] Jesus Monterroso MD Primary Care Provider Abram Flores MD Primary Care Provider Michael Hinojosa MD Primary Care Provider Driss nguyen [facility], Pcp Primary Care Provider Napoleon Mejia Primary Care Provider [phone] [facility], Pcp Primary Care Provider Maria T grace Encounter Details Date Type Department Care Team Description 11/28/2017 Release of Information Medical Records [address] [place] [id number] Abstract, Provider Social History Tobacco Use Types [...] on filedocumented in this encounter Care Teams Provider Education Specialist Relationship Specialty Start Date End Date Robinson Howe MD [address] [place] [address] PCP - General Internal Medicine 11/03/14 04/13/20 Jesus Monterroso MD [address] [place] [address] PCP - General Internal Medicine 04/14/20 07/05/20 Abram Gardner MD [address] [place] [address] PCP - General Internal Medicine 07/06/20 12/24/20 Michael Gillette MD [address] [place] [address] PCP - General Internal Medicine 12/25/20 06/28/21 [facility], Pcp [address] [place], [place] [phone] PCP - General Internal Medicine 06/29/21 11/14/21 Napoleon Linda [address] [place] [address] PCP - General Internal Medicine 11/15/21 04/20/22 [facility], Pcp [address] [place] [address] PCP - General Internal Medicine 04/21/22 documented as of this encounter
--- OUTSIDE RECORDS SUMMARY | 2024-04-12 09:39 | XMS_ITS | Encounter Summary ---
Author Organization [employer] Address [address] [place] [address] 7[address] [place] [address] Care Team Providers Care Stained Glass Window Designer Name Role Phone Unavailable Primary Care Provider Unavailabl e Encounter Details Date Type Department Care Team (Latest Contact Info) Description 04/05/2018 Abstract [facility] CONVERSIONS Dental, Provider, DDS Social [...] Description 09/13/2024 3:00 PM EDT Office Visit [facility] ADULT DENTAL [address] [place] [address] Delaney, Madeline [address] [place] [address] documented as of this encounter Visit Diagnoses Not on filedocumented in this encounter
--- OUTSIDE RECORDS SUMMARY | 2024-04-12 09:39 | XMS_ITS | Encounter Summary ---
Author Organization [facility] Address [address] [place] [address] Care Team Providers Care Planer Chain Offbearer Name Role Phone Robinson Howe MD Primary Care Provider [phone] Jesus Monterroso MD Primary Care Provider Abram Flores MD Primary Care Provider Michael Hinojosa MD Primary Care Provider Driss nguyen [facility], Pcp Primary Care Provider Napoleon Mejia Primary Care Provider [phone] [facility], Pcp Primary Care Provider Maria T grace Encounter Details Date Type Department Care Team Description 02/20/2020 [facility] Medical Records [address] [place] [address] Abstract, Provider Social History Tobacco Use Types [...] on filedocumented in this encounter Care Teams Planer Chain Offbearer Relationship Specialty Start Date End Date Robinson Howe MD [address] [place] [address] PCP - General Internal Medicine 11/03/14 04/13/20 Jesus Monterroso MD [address] [place] [address] PCP - General Internal Medicine 04/14/20 07/05/20 Abram Gardner MD [address] [place] [address] PCP - General Internal Medicine 07/06/20 12/24/20 Michael Gillette MD [address] [place] [address] PCP - General Internal Medicine 12/25/20 06/28/21 [facility], Pcp [address] [place], [place] [phone] PCP - General Internal Medicine 06/29/21 11/14/21 Napoleon Linda [address] [place] [address] PCP - General Internal Medicine 11/15/21 04/20/22 [facility], Pcp [address] [place] [address] PCP - General Internal Medicine 04/21/22 documented as of this encounter
--- OUTSIDE RECORDS SUMMARY | 2024-04-12 09:39 | XMS_ITS | Encounter Summary ---
Author Organization [facility] Address [address] [place] [address] Care Team Providers Care Chemical Handler Name Role Phone Michael Gillette MD Primary Care Provider Driss nguyen [facility], Pcp Primary Care Provider Napoleon Mejia Primary Care Provider [phone] [facility], Pcp Primary Care Provider Unavailabl e Reason for Visit * Reason Comments E-prescribe Rx Request Encounter Details Date Type Department Care Team Description 03/28/2021 Refill Adult Medicine [address] [address] Abram Gardner MD E-prescribe Rx Request Social History Tobacco Use Types Packs/Day Years [...] encounter Miscellaneous Notes * Telephone Encounter - Tiffanie Hough M.A. - 03/30/2021 3:17 PM EST [facility] 01/05/2021 F/U appt 06/29/2021 Lab Results Component Value Date NA 139 11/04/2020 K 4.2 11/04/2020 CO2 27 11/04/2020 CL 107 11/04/2020 BUN 19 11/04/2020 CREAT 0.71 11/04/2020 GLU 88 11/04/2020 CA 9.2 11/04/2020 GFR > 60 11/04/2020 * Telephone Encounter - Genie Capellan - 03/30/2021 3:09 PM EST Patient would like script to be: E-PRESCRIBED/FAXED TO PHARMACY ?? WHEN WAS THE PATIENT'S LAST APPOINTMENT IN ADULT MEDICINE? 01/05/2021 ?? WHEN WAS THE LAST TIME THE PATIENT SAW THEIR PCP? Not seen by new PCP ?? Does patient have an upcoming appointment? Yes 06/29/2021 ?? (THE MEDICATION REQUESTED IS ON THE [...] ?? Patients current insurance carrier is: Payor: [facility] MCR / Plan: O $0 [facility] [id number] / Product Type: HMO [id number] ?? documented in this encounter Plan of Treatment Not on file documented as of this encounter Visit Diagnoses Diagnosis Type 2 diabetes mellitus with diabetic neuropathy, with long-term current use of insulin (HCC) Essential hypertension Unspecified essential hypertension Other specified hypothyroidism Gastroesophageal reflux disease without esophagitis Esophageal reflux Need for prophylactic vaccination and inoculation against influenza documented in this encounter Care Teams Chemical Handler Relationship Specialty Start Date End Date Michael Gillette MD PCP - General Internal Medicine 12/25/20 06/28/21 [facility] Pcp PCP - General Internal Medicine 06/29/21 11/14/21 Napoleon Linda [address] [place] [address] PCP - General Internal Medicine 11/15/21 04/20/22 [facility], Pcp PCP - General Internal Medicine 04/21/22 documented as of this encounter
--- OUTSIDE RECORDS SUMMARY | 2024-04-12 09:39 | XMS_ITS | Encounter Summary ---
Author Organization [employer] Address [address] [place] [address] [address] [place] [address] Care Team Providers Care Trailer Body Assembler Name Role Phone Unavailable Primary Care Provider Unavailabl e Encounter Details Date Type Department Care Team (Latest Contact Info) Description 10/03/2018 Abstract [facility] CONVERSIONS Dental, Provider, DDS Social History [...] Description 09/13/2024 3:00 PM EDT Office Visit [facility] ADULT DENTAL [address] [place] [address] Delaney, Madeline [address] [place] [address] documented as of this encounter Visit Diagnoses Not on filedocumented in this encounter
--- OUTSIDE RECORDS SUMMARY | 2024-04-12 09:39 | XMS_ITS | Encounter Summary ---
Author Organization [facility] Address [address] [place] [address] Care Team Providers Care Rural Mail Contractor Name Role Phone Michael Gillette MD Primary Care Provider Driss nguyen [facility], Pcp Primary Care Provider Napoleon Mejia Primary Care Provider [phone] [facility]placed [facility], Pcp Primary Care Provider Unavailabl e Reason for Visit * Reason Comments E-prescribe Rx Request Encounter Details Date Type Department Care Team Description 01/11/2021 Refill Adult Medicine [address] [address] Abram Gardner MD E-prescribe Rx Request Social [...] have Coronavirus / COVID-19? No / Unsure 01/05/2021 8:53 AM EST documented as of this encounter Miscellaneous Notes * Telephone Encounter - Mary Benton M.A. - 01/12/2021 11:21 AM EST Lab Results Component Value Date NA 139 11/04/2020 K 4.2 11/04/2020 CO2 27 11/04/2020 CL 107 11/04/2020 BUN 19 11/04/2020 CREAT 0.71 11/04/2020 GLU 88 11/04/2020 CA 9.2 11/04/2020 GFR > 60 11/04/2020 [facility] 01/05/21 NOV 06/29/21 - NEW to PCP * Telephone Encounter - Amaris Calzada - 01/11/2021 8:42 AM EST Patient would like script to be: E-PRESCRIBED/FAXED TO PHARMACY WHEN WAS THE PATIENT'S LAST APPOINTMENT IN ADULT MEDICINE? 01/05/21 WHEN WAS THE LAST TIME THE PATIENT SAW THEIR PCP? Has not seen Does patient have an upcoming appointment? Yes 06/29/21 (THE MEDICATION REQUESTED IS ON THE MED [...] N/A Patients current insurance carrier is: Payor: [facility] MCR / Plan: HMO $0 [facility] [id number] / Product Type: HMO [id number] documented in this encounter Plan of Treatment Not on file documented as of this encounter Visit Diagnoses Not on filedocumented in this encounter Care Teams Rural Mail Contractor Relationship Specialty Start Date End Date Michael Gillette MD PCP - General Internal Medicine 12/25/20 06/28/21 [facility] Pcp PCP - General Internal Medicine 06/29/21 11/14/21 Napoleon Linda [address] [place] [address] PCP - General Internal Medicine 11/15/21 04/20/22 [facility], Pcp PCP - General Internal Medicine 04/21/22 documented as of this encounter
--- OUTSIDE RECORDS SUMMARY | 2024-04-12 09:39 | XMS_ITS | Encounter Summary ---
Author Organization [employer] Address [address] [place] [address] 7t [place] [address] Care Team Providers Care Radiologist Name Role Phone Unavailable Primary Care Provider Unavailabl e Encounter Details Date Type Department Care Team (Latest Contact Info) Description 12/24/2021 Abstract [facility] CONVERSIONS Dental, Provider, DDS Social History Tobacco [...] Description 09/13/2024 3:00 PM EDT Office Visit [facility] ADULT DENTAL [address] [place] [address] Delaney, Madeline [address] [place] [address] documented as of this encounter Visit Diagnoses Not on filedocumented in this encounter
--- OUTSIDE RECORDS SUMMARY | 2024-04-12 09:39 | XMS_ITS | Encounter Summary ---
Author Organization [facility] Address [address] [place] [address] Care Team Providers Care Academic Affairs Director Name Role Phone Michael Gillette MD Primary Care Provider Driss nguyen [facility] Primary Care Provider Napoleon Mejia Primary Care Provider [phone] [facility] Primary Care Provider Maria T grace Encounter Details Date Type Department Care Team Description 01/26/2021 Speedometer Inspector Report Medical Records [address] [place] [address] Osmar Ayala MD Social History Tobacco Use Types Packs/Day Years [...] AM EST documented as of this encounter Plan of Treatment Not on file documented as of this encounter Visit Diagnoses Not on filedocumented in this encounter Care Teams Academic Affairs Director Relationship Specialty Start Date End Date Michael Gillette MD PCP - General Internal Medicine 12/25/20 06/28/21 [facility] PCP - General Internal Medicine 06/29/21 11/14/21 Napoleon Linda [address] [place] [address] PCP - General Internal Medicine 11/15/21 04/20/22 [facility]cp PCP - General Internal Medicine 04/21/22 documented as of this encounter
--- OUTSIDE RECORDS SUMMARY | 2024-04-12 09:39 | XMS_ITS | Encounter Summary ---
Author Organization [facility] Address [address] [place] [address] Care Team Providers Care Physically Impaired Teacher Name Role Phone Robinson Howe MD Primary Care Provider [phone] Jesus Monterroso MD Primary Care Provider Abram Flores MD Primary Care Provider Unavailab Michael Duvall MD Primary Care Provider Driss nguyen [facility], Pcp Primary Care Provider Unavailabl e Napoleno Linda Primary Care Provider [phone] [facility], Pcp Primary Care Provider Unavailabl e Reason for Visit * Reason Onset Date Comments refill request 06/10/2019 Encounter Details Date Type Department Care Team Description 06/10/2019 Refill Adult Medicine [address] [id number] Robinson Howe MD [address] [place] [address] [phone] refill request Social History Tobacco Use Types Packs/Day Years [...] encounter Miscellaneous Notes * Telephone Encounter - Zoie Burroughs MD - 06/10/2019 5:[address] Ayala ([facility]) prescribed the Advair. However it's possible the office is closed. Ok to refill * Telephone Encounter - Mary Benton M.A. - 06/10/2019 4:42 PM EDT Advair doesn't appear to have been prescribed by our office, pt has diagnosis of asthma. Please review if refills are appropriate. * Telephone Encounter - Camryn Dorantes - 06/10/2019 3:46 PM EDT Patient would like script to be: E-PRESCRIBED/FAXED TO PHARMACY WHEN WAS THE PATIENT'S LAST APPOINTMENT IN ADULT MEDICINE? 03/14/2019 WHEN WAS THE LAST TIME THE PATIENT SAW THEIR PCP? Same as above Does patient have an upcoming appointment? Yes 06/18/2019 (THE MEDICATION REQUESTED IS ON THE MED LIST ABOVE) All of the medications requested were on the CURRENT MEDS list Did you check the Pharmacy information above?: YES Patient wants: 30 -day supply Is this a mail order prescription request ? NO If the refill is from a FAXED refill request what is the RX # listed on the fax? N/A Patients current insurance carrier is: Payor: [facility] [employer] / Plan: [facility] [id number] / Product Type: HMO [id number] documented in this encounter Plan of Treatment Not on file documented as of this encounter Visit Diagnoses Not on filedocumented in this encounter Care Teams Physically Impaired Teacher Relationship Specialty Start Date End Date Robinson Howe MD [address] [place] [address] PCP - General Internal Medicine 11/03/14 04/13/20 Jesus Monterroso MD [address] [place] [address] PCP - General Internal Medicine 04/14/20 07/05/20 Abram Gardner MD [address] [place] [address] PCP - General Internal Medicine 07/06/20 12/24/20 Michael Gillette MD [address] [place] [address] PCP - General Internal Medicine 12/25/20 06/28/21 [facility], Pcp [address] [place] [address] PCP - General Internal Medicine 06/29/21 11/14/21 Napoleon Linda [address] [place] [address] PCP - General Internal Medicine 11/15/21 04/20/22 [facility], Pcp [address] [place], [place] [id number] PCP - General Internal Medicine 04/21/22 documented as of this encounter
--- OUTSIDE RECORDS SUMMARY | 2024-04-12 09:39 | XMS_ITS | Encounter Summary ---
Author Organization [facility] Address [address] [place] [address] Care Team Providers Care Jukebox Coin Collector Name Role Phone Louisa Machuca MD Primary Care Provider Unavailable Ruddy Cruz MD Primary Care Provider Unavail able Robinson Howe MD Primary Care Provider + [phone] Jesus Monterroso MD Primary Care Provider Abram Flores MD Primary Care Provider Unavailab Michael Duvall MD Primary Care Provider Driss nguyen [facility], [facility]cp Primary Care Provider UnavailNapoleon White Primary Care Provider [phone] [facility], Pcp Primary Care Provider Maria T grace Encounter Details Date Type Department Care Team Description 07/17/2013 Business Doc Medical Records [address] [place] [address] Abstract, Provider Social History Tobacco Use Types Packs/Day Years Used Date Smoking Tobacco: Former Cigarettes 1 10 Q uit: 04/24/1977 Smokeless Tobacco: Never Alcohol Use Standard Drinks/Week Comments No 0 [...] on filedocumented in this encounter Care Teams Jukebox Coin Collector Relationship Specialty Start Date End Date Louisa Machuca MD PCP - General Internal Medicine 07/17/13 Ruddy Cruz MD PCP - General Internal Medicine 12/19/13 11/02/14 Robinson Howe MD [address] [place] [address] PCP - General Internal Medicine 11/03/14 04/13/20 Jesus Monterroso MD [address] [place] [address] PCP - General Internal Medicine 04/14/20 07/05/20 Abram Gardner MD [address] [place] [address] PCP - General Internal Medicine 07/06/20 12/24/20 Michael Gillette MD [address] [place] [address] PCP - General Internal Medicine 12/25/20 06/28/21 [facility] Pcp [address] [place] [address] PCP - General Internal Medicine 06/29/21 11/14/21 Napoleon Linda [address] [place] [address] PCP - General Internal Medicine 11/15/21 04/20/22 [facility], Pcp [address] [place] [address] PCP - General Internal Medicine 04/21/22 documented as of this encounter
--- OUTSIDE RECORDS SUMMARY | 2024-04-12 09:40 | XMS_ITS | Encounter Summary ---
Author Organization [facility] Address [address] [place] [address] Care Team Providers Care Technical Support Internship Name Role Phone Robinson Howe MD Primary Care Provider [phone] Jesus Monterroso MD Primary Care Provider Abram Flores MD Primary Care Provider Michael Hinojosa MD Primary Care Provider Driss nguyen [facility], Pcp Primary Care Provider Napoleon Mejia Primary Care Provider [facility], Pcp Primary Care Provider Maria T grace Encounter Details Date Type Department Care Team Description 07/12/2018 Orders Only Allergy [place] [address] [place] [address] Social History Tobacco Use Types Packs/Day Years [...] on filedocumented in this encounter Care Teams Technical Support Internship Relationship Specialty Start Date End Date Robinson Howe MD [address] [place] [address] PCP - General Internal Medicine 11/03/14 04/13/20 Jesus Monterroso MD [address] [place] [address] PCP - General Internal Medicine 04/14/20 07/05/20 Abram Gardner MD [address] [place] [address] PCP - General Internal Medicine 07/06/20 12/24/20 Michael Gillette MD [address] [place] [address] PCP - General Internal Medicine 12/25/20 06/28/21 [facility], Pcp [address] [place], [place] [phone] PCP - General Internal Medicine 06/29/21 11/14/21 Napoleon Linda [address] [place] [address] PCP - General Internal Medicine 11/15/21 04/20/22 [facility], Pcp [address] [place] [address] PCP - General Internal Medicine 04/21/22 documented as of this encounter
--- OUTSIDE RECORDS SUMMARY | 2024-04-12 09:40 | XMS_ITS | Encounter Summary ---
Author Organization [facility] Address [address] [place] [address] Care Team Providers Care Manager Books Name Role Phone Ruddy Cruz MD Primary Care Provider Unavail able Robinson Howe MD Primary Care Provider [phone] Jesus Monterroso MD Primary Care Provider Abram Flores MD Primary Care Provider Unavailab Michael Duvall MD Primary Care Provider Unavai patrick [facility], Pcp Primary Care Provider Unavailabl Napoleon Ramirez Primary Care Provider [phone] [facility], Pcp Primary Care Provider Unavailabl e Reason for Visit * Reason Onset Date Comments Faxed Order 06/09/2014 Encounter Details Date Type Department Care Team Description 06/09/2014 Telephone Adult Medicine [address] [address] Karlos Edwards MD Faxed Order Social History Tobacco Use Types Packs/Day Years [...] encounter Miscellaneous Notes * Telephone Encounter - Brina Burkett - 06/09/2014 8:40 AM EDT Faxed order form caregiver homes documented in this encounter Plan of Treatment Not on file documented as of this encounter Visit Diagnoses Not on filedocumented in this encounter Care Teams Manager Books Relationship Specialty Start Date End Date Ruddy Cruz MD PCP - General Internal Medicine 12/19/13 11/02/14 Robinson Howe MD [address] [place] [address] PCP - General Internal Medicine 11/03/14 04/13/20 Jesus Monterroso MD [address] [place] [address] PCP - General Internal Medicine 04/14/20 07/05/20 Abram Gardner MD [address] [place] [address] PCP - General Internal Medicine 07/06/20 12/24/20 Michael Gillette MD [address] [place] [address] PCP - General Internal Medicine 12/25/20 06/28/21 [facility], Pcp [address] [place] [address] PCP - General Internal Medicine 06/29/21 11/14/21 Napoleon Linda [address] [place] [address] PCP - General Internal Medicine 11/15/21 04/20/22 [facility], Pcp [address] [place] [address] PCP - General Internal Medicine 04/21/22 documented as of this encounter
--- OUTSIDE RECORDS SUMMARY | 2024-04-12 09:40 | XMS_ITS | Encounter Summary ---
Author Organization [facility] Address [address] [place] [address] Care Team Providers Care Rn Imcu Name Role Phone Robinson Howe MD Primary Care Provider [phone] Jesus Monterroso MD Primary Care Provider Abram Flores MD Primary Care Provider Michael Hinojosa MD Primary Care Provider Driss nguyen [facility], Pcp Primary Care Provider Napoleon Mejia Primary Care Provider [phone] [facility]cp Primary Care Provider Maria T grace Encounter Details Date Type Department Care Team Description 11/12/2015 Business Doc Medical Records [address] [place] [address] Abstract, Provider Social History Tobacco Use Types [...] on filedocumented in this encounter Care Teams Rn Imcu Relationship Specialty Start Date End Date Robinson Howe MD [address] [place] [address] PCP - General Internal Medicine 11/03/14 04/13/20 Jesus Monterroso MD [address] [place] [address] PCP - General Internal Medicine 04/14/20 07/05/20 Abram Gardner MD [address] [place] [address] PCP - General Internal Medicine 07/06/20 12/24/20 Michael Gillette MD [address] [place] [address] PCP - General Internal Medicine 12/25/20 06/28/21 [facility]cp [address] [place], [place] [phone] PCP - General Internal Medicine 06/29/21 11/14/21 Napoleon Linda [address] [place] [address] PCP - General Internal Medicine 11/15/21 04/20/22 [facility]cp [address] [place] [address] PCP - General Internal Medicine 04/21/22 documented as of this encounter
--- OUTSIDE RECORDS SUMMARY | 2024-04-12 09:40 | XMS_ITS | Encounter Summary ---
Author Organization [facility] Address [address] [place] [address] Care Team Providers Care Film Reproducer Name Role Phone Robinson Howe MD Primary Care Provider + [phone] Jesus Monterroso MD Primary Care Provider Abram Flores MD Primary Care Provider Michael Hinojosa MD Primary Care Provider Driss nguyen [facility], Pcp Primary Care Provider Napoleon Mejia Primary Care Provider [phone] [facility], Pcp Primary Care Provider Maria T grace Encounter Details Date Type Department Care Team Description 09/25/2018 Release of Information Medical Records [address] [place] [address] Abstract, Provider Social History Tobacco Use Types [...] on filedocumented in this encounter Care Teams Film Reproducer Relationship Specialty Start Date End Date Robinson Howe MD [address] [place] [address] PCP - General Internal Medicine 11/03/14 04/13/20 Jesus Monterroso MD [address] [place] [address] PCP - General Internal Medicine 04/14/20 07/05/20 Arbam Gardner MD [address] [place] [address] PCP - General Internal Medicine 07/06/20 12/24/20 Michael Gillette MD [address] [place] [address] PCP - General Internal Medicine 12/25/20 06/28/21 [facility], Pcp [address] [place], [place] [phone] PCP - General Internal Medicine 06/29/21 11/14/21 Napoleon Linda [address] [place] [address] PCP - General Internal Medicine 11/15/21 04/20/22 [facility], Pcp [address] [place] [address] PCP - General Internal Medicine 04/21/22 documented as of this encounter
--- OUTSIDE RECORDS SUMMARY | 2024-04-12 09:40 | XMS_ITS | Encounter Summary ---
Author Organization [facility] Address [address] [place] [address] Care Team Providers Care Data Warehousing Manager Name Role Phone Abram Gardner MD Primary Care Provider UnavailMichael Elmore MD Primary [facility] Primary [facility] Napoleon Mejia Primary Care Provider [phone] [facility] Primary Care Provider Maria T rgace Encounter Details Date Type Department Care Team Description 11/06/2020 Refill Adult [address] [address] Abram Gardner MD Social History Tobacco Use Types Packs/Day [...] have Coronavirus / COVID-19? No / Unsure 11/06/2020 11:00 AM EDT documented as of this encounter Plan of Treatment Not on file documented as of this encounter Visit Diagnoses Not on filedocumented in this encounter Care Teams Data Warehousing Manager Relationship Specialty Start Date End Date Abram Gardner MD PCP - General Internal Medicine 07/06/20 12/24/20 Michael Gillette MD PCP - General Internal Medicine 12/25/20 06/28/21 [facility] PCP - General Internal Medicine 06/29/21 11/14/21 Napoleon Linda [address] [place] [address] PCP - General Internal Medicine 11/15/21 04/20/22 [facility]cp PCP - General Internal Medicine 04/21/22 documented as of this encounter
--- OUTSIDE RECORDS SUMMARY | 2024-04-12 09:40 | XMS_ITS | Encounter Summary ---
Author Organization [facility] Address [address] [place] [address] Care Team Providers Care Religious Educator Name Role Phone Abram Gardner MD Primary Care Provider Michael Hinojosa MD Primary Care Provider Driss nguyen [facility], Pcp Primary Care Provider Napoleon Mejia Primary Care Provider [phone] [facility], Pcp Primary Care Provider Maria T grace Encounter Details Date Type Department Care Team Description 10/29/2020 Heating Systems Installer Report Medical Records [address] [place] [address] Osmar Ayala MD Social History Tobacco Use [...] on filedocumented in this encounter Care Teams Religious Educator Relationship Specialty Start Date End Date Abram Gardner MD PCP - General Internal Medicine 07/06/20 12/24/20 Michael Gillette MD PCP - General Internal Medicine 12/25/20 06/28/21 [facility], Pcp PCP - General Internal Medicine 06/29/21 11/14/21 Napoleon Linda [address] [place] [address] PCP - General Internal Medicine 11/15/21 04/20/22 [facility], Pcp PCP - General Internal Medicine 04/21/22 documented as of this encounter
--- OUTSIDE RECORDS SUMMARY | 2024-04-12 09:40 | XMS_ITS | Encounter Summary ---
Author Organization [facility] Address [address] [place] [address] Care Team Providers Care Chipping Machine Operator Name Role Phone Robinson Howe MD Primary Care Provider [phone] Jesus Monterroso MD Primary Care Provider Abram Flores MD Primary Care Provider Michael Hinojosa MD Primary Care Provider Driss nguyen [facility], Pcp Primary Care Provider Napoleon Mejia Primary Care Provider [phone] [facility], Pcp Primary Care Provider Maria T grace Encounter Details Date Type Department Care Team Description 08/07/2016 Release of Information Medical Records [address] [place] [address] Abstract, Provider Social History Tobacco Use Types [...] on filedocumented in this encounter Care Teams Chipping Machine Operator Relationship Specialty Start Date End Date Robinson Howe MD [address] [place] [address] PCP - General Internal Medicine 11/03/14 04/13/20 Jesus Monterroso MD [address] [place] [address] PCP - General Internal Medicine 04/14/20 07/05/20 Abram Gardner MD [address] [place] [address] PCP - General Internal Medicine 07/06/20 12/24/20 Michael Gillette MD [address] [place] [address] PCP - General Internal Medicine 12/25/20 06/28/21 [facility], Pcp [address] [place], [place] [phone] PCP - General Internal Medicine 06/29/21 11/14/21 Napoleon Linda [address] [place] [address] PCP - General Internal Medicine 11/15/21 04/20/22 [facility], Pcp [address] [place] [address] PCP - General Internal Medicine 04/21/22 documented as of this encounter
--- OUTSIDE RECORDS SUMMARY | 2024-04-12 09:40 | XMS_ITS | Encounter Summary ---
Author Organization [facility] Address [address] [place] [address] Care Team Providers Care Training Professional Name Role Phone Abram Gardner MD Primary Care Provider Michael Hinojosa MD Primary Care Provider Driss nguyen [facility], Pcp Primary Care Provider Napoleon Mejia Primary Care Provider [phone] [facility], Pcp Primary Care Provider Maria T grace Encounter Details Date Type Department Care Team Description 08/05/2020 Refill Hypertension - [place] [address] [place] [address] Louisa Hart, Pharm.D Social History Tobacco Use Types Packs/Day Years [...] have Coronavirus / COVID-19? No / Unsure 08/05/2020 3:14 PM EDT documented as of this encounter Miscellaneous Notes * Telephone Encounter - Pharm. SudhakarD - 08/05/2020 5:03 PM EDT Ms. Osman was seen in the HTN clinic today and her BP was <130/80. She requires refills of amlodipine and losartan. Thank you. -Louisa documented in this encounter Plan of Treatment Not on file documented as of this encounter Visit Diagnoses Not on filedocumented in this encounter Care Teams Training Professional Relationship Specialty Start Date End Date Abram Gardner MD PCP - General Internal Medicine 07/06/20 12/24/20 Michael Gillette MD PCP - General Internal Medicine 12/25/20 06/28/21 [facility] PCP - General Internal Medicine 06/29/21 11/14/21 Napoleon Linda [address] [place] [address] PCP - General Internal Medicine 11/15/21 04/20/22 [facility]cp PCP - General Internal Medicine 04/21/22 documented as of this encounter
--- OUTSIDE RECORDS SUMMARY | 2024-04-12 09:40 | XMS_ITS | Encounter Summary ---
Author Organization [facility] Address [address] [place] [address] Care Team Providers Care Financial Aids Officer Name Role Phone Robinson Howe MD Primary Care Provider [phone] Jesus Monterroso MD Primary Care Provider Abram Flores MD Primary Care Provider Unavailab Michael Duvall MD Primary Care Provider Driss nguyen [facility], Pcp Primary Care Provider Unavailabl e Napoleon Linda Primary Care Provider [phone] [facility], Pcp Primary Care Provider Unavailabl e Reason for Visit * Reason Onset Date Comments Testing 06/28/2016 Encounter Details Date Type Department Care Team Description 06/28/2016 Telephone Radiology - [address] [id number] Jerod Daniel PA-C [address] [place] [address] [phone] Testing Social History Tobacco Use Types Packs/Day Years [...] encounter Miscellaneous Notes * Telephone Encounter - Jerod Daniel PA-C - 06/28/2016 12:37 PM EDT I will defer to whatever radiology recommends situation. I think the three-phase bone scan is fine. Jerod Daniel PA-C * Telephone Encounter - Margarita Campbell - 06/28/2016 12:31 PM EDT Timi, Ms Osman was ordered a bone scan w/wbc. This was reviewed by the radiologist and they are suggesting to start w/3 phase bone scan w/o wbc. Please review and let me know if this is something you agree with before I schedule the patient. Thank you! Radiology documented in this encounter Plan of Treatment Not on file documented as of this encounter Visit Diagnoses Not on filedocumented in this encounter Care Teams Financial Aids Officer Relationship Specialty Start Date End Date Robinson Howe MD [address] [place] [address] PCP - General Internal Medicine 11/03/14 04/13/20 Jesus Monterroso MD [address] [place] [address] PCP - General Internal Medicine 04/14/20 07/05/20 Abram Gardner MD [address] [place] [address] PCP - General Internal Medicine 07/06/20 12/24/20 Michael Gillette MD [address] [place] [address] PCP - General Internal Medicine 12/25/20 06/28/21 [facility], Pcp [address] [place] [address] PCP - General Internal Medicine 06/29/21 11/14/21 Napoleon Linda [address] [place] [address] PCP - General Internal Medicine 11/15/21 04/20/22 [facility], Pcp [address] [place] [address] PCP - General Internal Medicine 04/21/22 documented as of this encounter
--- OUTSIDE RECORDS SUMMARY | 2024-04-12 09:40 | XMS_ITS | Encounter Summary ---
Author Organization [facility] Address [address] [place] [address] Care Team Providers Care Clinical Review Specialist Name Role Phone Robinson Howe MD Primary Care Provider [phone] Jesus Monterroso MD Primary Care Provider Abram Flores MD Primary Care Provider Unavailab Michael Duvall MD Primary Care Provider Driss nguyen [facility], Pcp Primary Care Provider Unavailabl Napoleon Ramirez Primary Care Provider [phone] [facility], Pcp Primary Care Provider Unavailabl e Reason for Visit * Reason Onset Date Comments Letter 02/02/2016 FYI... Pt will n eed SP translation. Encounter Details Date Type Department Care Team Description 02/02/2016 Telephone Adult Medicine [address] [id number] Robinson Howe MD [address] [place] [address] [phone] Letter (FYI... Pt will need SP translation.) Social History Tobacco Use Types Packs/Day Years [...] encounter Miscellaneous Notes * Telephone Encounter - Stephanie Camp - 02/03/2016 5:04 PM EST Spoke with Pt's daughter Kaleigh (GIANCARLO) who is with Pt who is cuban speaking. Pt c/o right lower leg pain for the past two months. Pt seen for this 01/01/16 and had an a negative US. Reports still having pain and denies any new injury. Reports intermittent numbness and tingling. Able to walk but difficult. Denies any redness, swelling or warmth. Pt is A&O x 3, speech is clear and appropriate, able to speak in full sentences, denies CP/SOB,dizziness/weakness, no changes to CMS, no swelling, no N/V/D/Fever (temperature not taken), abdomennon tender, able to eat/drink, able to void, pt reports being able to ambulate with steady gate. 02/04/16 ([facility]) 9:00 AM 30 min Jerod Daniel PA-C [facility]RIVKA Bowman Advised home care following the leg pain protocol. RN reinforced telephone consultation and advice.Reviewed with patient the signs and symptoms to watch for that would require immediate attention. If symptoms change, worsen or increase in intensity, to call office back immediately or go to the ER/call 911. Verbalized understanding and agreed with plan. * Telephone Encounter - Clara Vargas - 02/03/2016 4:46 PM EST Pt's daughter kaleigh (verbal release on file) states she would like to speak with the nurse regarding the information below. Daughter speaks Bolivian. Please contact Kaleigh @ [phone]. * Telephone Encounter - Stephanie Camp - 02/02/2016 6:48 PM EST Spoke with Pt who c/o right lower leg pain for several months. Reports she was seen here for it in the past and had a negative sonogram . Hx shows Pt was seen and evaluated for right calf pain on 01/01/16 with negative US for DVT. Pt is primarily cuban speaking and advised I would call back shortly with an Consulting Marine Engineer service. Verbalized understanding and agreed with plan. Pt is cuban speaking only. Interpretor service used via [employer]. Interpretor # [id number] assisted with call. Phone call returned, no answer, left message to return call. * Telephone Encounter - Clara ClancyvedoYangDe - 02/02/2016 4:23 PM EST Letter requested for: Pt is looking to move closer to home/family Reason for letter: Att: Limtel Specific notations needed in body of letter: Pt feels depressed [place] and would like a letter stateting that by moving closer to home near family will help improve her feeling of depression Date needed for completion: As soon as possible When completed: Will flower picker-call when completed: documented in this encounter Plan of Treatment Not on file documented as of this encounter Visit Diagnoses Not on filedocumented in this encounter Care Teams Clinical Review Specialist Relationship Specialty Start Date End Date Robinson Howe MD [address] [place] [address] PCP - General Internal Medicine 11/03/14 04/13/20 Jesus Monterroso MD [address] [place] [address] PCP - General Internal Medicine 04/14/20 07/05/20 Abram Gardner MD [address] [place] [address] PCP - General Internal Medicine 07/06/20 12/24/20 Michael Gillette MD [address] [place] [address] PCP - General Internal Medicine 12/25/20 06/28/21 [facility], Pcp [address] [place] [address] PCP - General Internal Medicine 06/29/21 11/14/21 Napoleon Linda [address] [place], [place] [id number] PCP - General Internal Medicine 11/15/21 04/20/22 [facility], Pcp [address] [place] [address] ANTONIO Bowman [address] PCP - General Internal Medicine 04/21/22 documented as of this encounter
--- OUTSIDE RECORDS SUMMARY | 2024-04-12 09:40 | XMS_ITS | Clinical Summary ---
Author Organization [facility] Address [address] [place] [address] [address] [place] [address] Care Team Providers Care Barrel Centerer Name Role Phone Unavailable Primary Care Provider Unavailabl e Allergies Active Allergy Reactions Criticality Noted Date Comments Gramineae Pollens 04/24/2013 Medications amLODIPine (Norvasc) 2.5 MG tablet Take 2.5 mg by mouth in the morning. 2 Active aspirin 81 MG chewable tablet Chew 1 tablet in the morning. 2 Active ascorbic acid (Vitamin C) 250 MG chewable tablet Chew. Active B Complex Vitamins (vitamin B complex) tablet Take 1 tablet by mouth in the morning. 1 Active carvedilol (Coreg) 6.25 MG tablet Take 6.25 mg by mouth with breakfast and with evening meal. 2 Active chlorhexidine (Peridex) 0.12 % solution RINSE FOR 30 SECONDS WITH A HALF OUNCE (15ml) TWICE DAILY, SPIT OUT -- DO NOT SWALLOW. USE AFTER MEALS. 2 Active Fluticasone-Ume clidin-Vilant 200-62.5-25 MCG/ACT aerosol powder INHALE 1 PUFF BY MOUTH DAILY FOR 30 DAYS 2 Active levothyroxine (Synthroid, Levoxyl) 125 MCG tablet Take 125 mcg by mouth in the morning. 2 Active losartan (Cozaar) 50 MG tablet Take 50 mg by mouth in the morning. 2 Active metFORMIN (Glucophage) 500 MG tablet Take 500 mg by mouth in the morning. 2 Active montelukast (Singulair) 10 MG tablet Take 10 mg by mouth at bedtime. 2 Active pantoprazole (ProtoNix) 20 MG EC tablet Take 2 tablets by mouth at bed time. Active sertraline (Zoloft) 100 MG tablet Take 100 mg by mouth in the morning. 2 Active simvastatin (Zocor) 20 MG tablet Take 20 mg by mouth at bedtime. 2 Active Active Problems Problem Noted Date Diagnosed Date Dental calculus 09/12/2023 Localized gingival recession 09/12/2023 Missing teeth, acquired 09/12/2023 Periodontal disease 01/28/2022 Encounters Date Type Department Care Team Description 03/15/2024 10:00 AM EST Office Visit [facility] [address] [place] [address] Madeline Baltazar Dental plaque (Primary Dx) from Last 3 Months Immunizations Name Administration Dates Next Due INFLUENZA INJECTABLE QUADRIV ALANT CCIIV4 MDCK Multi-dose vial 12/01/2016 Influenza injectable quadriv alent preservative free 01/24/2023 Influenza, High Dose Seasona l, Preservative Free 11/06/2020,02/25/2020,12/24/2018,11/28,11/19/2015 Influenza, IIV3, injectable 01/19/2015, 4 Influenza, Unspecified 01/17/2003 Moderna Covid-19 Vaccine 6+ Bivalent 03/03/2022 PPD Test 04/24/2013 Pfizer Covid-19 Vaccine 12+ 02/03/2023 Pneumococcal Conjugate PCV 13 01/19/2015 Pneumococcal Conjugate PCV 20 06/30/2021 Pneumococcal Polysaccharide PPSV23 05/23/2013 Pneumococcal, Unspecified 01/17/2003 TD (adult), 2 Lf tetanus tox oid, preservative free, adsorbed 04/08/2022 Social History Tobacco Use Types Packs/Day Years Used Date Smoking Tobacco: Former Cigarettes Passive Smoke Exposure: Never Smokeless Tobacco: Never Tobacco Cessation:Counseling Given: No Alcohol Use Standard Drinks/Week Comments Never 0 (1 standard drink = 0.6 oz pur e alcohol) Comments Unknown Sex and Gender Information Value Date Recorded Sex Assigned at Female 12/20/2021 10:34 AM EDT Legal Sex Female 10:34 AM EDT Gender Identity Female 12/20/2021 10:34 AM EDT Sexual Orientation Straight 09/05/2023 10 :53 AM EDT Last Filed Vital Signs Vital Sign Reading Time Taken Comments Blood Pressure 130/70 03/15/2024 9:59 AM EST Pulse 78 09/12/2023 2:54 PM EDT Temperature - - Respiratory Rate - - Oxygen Saturation - - Inhaled Oxygen Concentration - - Weight - - Height - - Body Mass Index - - Plan of Treatment Upcoming Encounters Date Type Department Care Team (Late st Contact Info) Description 09/13/2024 3:00 PM EDT Office Visit [facility] [address] [place], [place] [phone] Delaney, Madeline [address] [place] [address] Health Maintenance Due Date Last Done Comments Depression Screening 1948 Lipid Panel 1948 SDOH Screening 1948 Alcohol/Substance Use Screening 1960 Hepatitis C Screening 1966 Zoster Vaccines (1 of 2) 1998 DTaP/Tdap/Td Vaccines (1 - Tdap) 04/09/2022 04/08/2022 RSV Patients and Patients Aged 60 years or older (1 - 1-dose 75+ series) 2023 COVID-19 Vaccine ( season) 2023 02/03/2023, 03/03/2022, 02/24/2021, Additional history exists Dental Oral Exam 03/15/2024 09/12/2023 Dental X-Ray: Bitewings 09/12/2024 09/12/2023 Dental Prophylaxis 09/13/2024 03/15/2024, 09/12/2023 Dental X-Ray: Full Mouth 12/25/2024 12/24/2021 Tobacco Screening 03/15/2025 03/15/2024 Pneumococcal Vaccine: 50+ Years Completed 06/30/2021, 01/19/2015, 05/23/2013, Additional history exists Influenza Vaccine Completed 01/15/2024, , 11/06/2020, Additional history exists HIB Vaccines Aged Out No longer eligi ble based on patient's age to complete this topic HPV Vaccines Aged Out No longer eligi ble based on patient's age to complete this topic Hepatitis A Vaccines Aged Out No long er eligible based on patient's age to complete this topic Hepatitis B Vaccines Aged Out No long er eligible based on patient's age to complete this topic IPV Vaccines Aged Out No longer eligi ble based on patient's age to complete this topic Meningococcal Vaccine Aged Out No khushboo manasa eligible based on patient's age to complete this topic RSV under 20 months Aged Out No longe r eligible based on patient's age to complete this topic Rotavirus Vaccines Aged Out No longer eligible based on patient's age to complete this topic Procedures Procedure Name Priority Date/Time Associated Diagnosis Comments ORAL HYGIENE INSTRUCTIONS Routine 03/15/2024 10:00 AM EST Dental plaque CASE PRESENTATION, DETAILED AND EXTENSIVE TREATMENT PLANNING Routine 03/15/2024 10:00 AM EST Dental plaque TOPICAL APPLICATION OF FLUORIDE VARNISH Routine 03/15/2024 10:00 AM EST Dental plaque PROPHYLAXIS - ADULT Routine 03/15/2024 1 0:00 AM EST Dental plaque BITEWINGS - 4 RADIOGRAPHIC IMAGES Routine 09/12/2023 3:00 PM EDT Periodontal disease Dental calculus Localized gingival recession Missing teeth, acquired PERIODIC ORAL EVALUATION - ESTABLISHED PATIENT Routine 09/12/2023 3:00 PM EDT from Last 3 Months or Most Recently Relevant to Health Maintenance Insurance DENTAL - [facility] Member Subscriber Plan / Payer (Ef fective 2017-Present) Name:Joanna Osman Relation to Subscriber:Self Name:Joanna Osman Payer ID:Not on file Group ID:[id number] Type:Not on file Address: [address] - [facility] - [facility]
--- OUTSIDE RECORDS SUMMARY | 2024-04-12 09:40 | XMS_ITS | Encounter Summary ---
Author Organization [facility] Address [address] [place] [address] Care Team Providers Care Mortgage Branch Manager Name Role Phone Abram Gardner MD Primary Care Provider Michael Hinojosa MD Primary Care Provider Driss nguyen [facility], Pcp Primary Care Provider Napoleon Mejia Primary Care Provider [phone] [facility] Pcp Primary Care Provider Unavailabl e Reason for Visit * Reason Comments E-prescribe Rx Request Encounter Details Date Type Department Care Team Description 10/27/2020 Refill Adult Medicine [address] [address] Jerod Daniel PA-C [address] [place] [address] E-prescribe Rx Request Social History Tobacco Use [...] Telephone Encounter - Tiffanie Hough M.A. - 10/27/2020 9:26 AM EDT [place] 07/06/2020 F/U appt 11/06/2020 Lab Results Component Value Date NA 141 06/26/2020 K 4.2 06/26/2020 CO2 27 06/26/2020 CL 107 06/26/2020 BUN 26 06/26/2020 CREAT 0.89 06/26/2020 GLU 111 06/26/2020 CA 9.5 06/26/2020 GFR > 60 06/26/2020 * Telephone Encounter - Edita Felix - 10/27/2020 7:51 AM EDT Patient would like script to be: E-PRESCRIBED/FAXED TO PHARMACY WHEN WAS THE PATIENT'S LAST APPOINTMENT IN ADULT MEDICINE? 07/06/2020 WHEN WAS THE LAST TIME THE PATIENT SAW THEIR PCP? Same as above Does patient have an upcoming appointment? Yes 11/06/2020 (THE MEDICATION REQUESTED IS ON THE MED [...] N/A Patients current insurance carrier is: Payor: [facility] MCR / Plan: O $0 [facility] [id number] / Product Type: HMO [id number] documented in this encounter Plan of Treatment Not on file documented as of this encounter Visit Diagnoses Diagnosis Type 2 diabetes mellitus with diabetic neuropathy, with long-term current use of insulin (HCC) Essential hypertension Unspecified essential hypertension Other specified hypothyroidism Gastroesophageal reflux disease without esophagitis Esophageal reflux Need for prophylactic vaccination and inoculation against influenza Hypothyroidism due to acquired atrophy of thyroid Moderate persistent asthma with acute exacerbation documented in this encounter Care Teams Mortgage Branch Manager Relationship Specialty Start Date End Date Abram Gardner MD PCP - General Internal Medicine 07/06/20 12/24/20 Michael Gillette MD PCP - General Internal Medicine 12/25/20 06/28/21 [facility] Pcp PCP - General Internal Medicine 06/29/21 11/14/21 Napoleon Linda [address] [place] [address] PCP - General Internal Medicine 11/15/21 04/20/22 [facility] Pcp PCP - General Internal Medicine 04/21/22 documented as of this encounter
--- OUTSIDE RECORDS SUMMARY | 2024-04-12 09:40 | XMS_ITS | Encounter Summary ---
Author Organization [facility] Address [address] [place] [address] Care Team Providers Care Diamond Grader Name Role Phone Jesus Monterroso MD Primary Care Provider Abram Flores MD Primary Care Provider Unavailab Michael Duvall MD Primary Care Provider Driss nguyen [facility], Pcp Primary Care Provider Napoleon Mejia Primary Care Provider [phone] [facility] Primary Care Provider Unavailabl e Reason for Visit * Reason Comments E-prescribe Rx Request Encounter Details Date Type Department Care Team Description 06/29/2020 Refill [address]ergy [address] [id number] Cait Dumas MD E-prescribe Rx Request Social History Tobacco [...] have Coronavirus / COVID-19? No / Unsure 06/26/2020 3:03 PM EDT documented as of this encounter Miscellaneous Notes * Telephone Encounter - Stephanie Hicks - 06/30/2020 9:08 AM EDT Left message to call and schedule * Telephone Encounter - Cait Dumas MD - 06/29/2020 5:37 PM EDT Patient needs appt for additional refills * Telephone Encounter - Marta Acuña LPN - 06/29/2020 3:15 PM EDT [place]: 11/05/20 F/U: 05/05/20 cx by pt. BSR- please schedule a f/u appointment. documented in this encounter Plan of Treatment Not on file documented as of this encounter Visit Diagnoses Not on filedocumented in this encounter Care Teams Diamond Grader Relationship Specialty Start Date End Date Jesus Monterroso MD PCP - General Internal Medicine 04/14/20 07/05/20 Abram Gardner MD PCP - General Internal Medicine 07/06/20 12/24/20 Michael Gillette MD PCP - General Internal Medicine 12/25/20 06/28/21 [facility], Pcp PCP - General Internal Medicine 06/29/21 11/14/21 Napoleon Linda [address] [place] [address] PCP - General Internal Medicine 11/15/21 04/20/22 [facility] Pcp PCP - General Internal Medicine 04/21/22 documented as of this encounter
--- OUTSIDE RECORDS SUMMARY | 2024-04-12 09:40 | XMS_ITS | Encounter Summary ---
Author Organization [facility] Address [address] [place] [address] Care Team Providers Care Car Pilot Name Role Phone Robinson Howe MD Primary Care Provider [phone] Jesus Monterroso MD Primary Care Provider Abram Flores MD Primary Care Provider Unavailab Michael Duvall MD Primary Care Provider Driss nguyen [facility], Pcp Primary Care Provider Unavailabl Napoleon Ramirez Primary Care Provider [phone] [facility], Pcp Primary Care Provider Unavailabl e Reason for Visit * Reason Comments E-prescribe Rx Request Encounter Details Date Type Department Care Team Description 08/04/2017 Refill Adult Medicine [address] [phone] Robinson Howe MD [address] [place] [address] [phone] E-prescribe Rx Request Social History Tobacco Use [...] encounter Miscellaneous Notes * Telephone Encounter - Cathy Valero M.A. - 08/04/2017 4:52 PM EDT Faxed to pharmacy * Telephone Encounter - Cathy Valero M.A. - 08/04/2017 2:16 PM EDT Lab Results Component Value Date NA 142 07/11/2017 K 4.2 07/11/2017 CO2 27.4 07/11/2017 CL 104 07/11/2017 BUN 19 07/11/2017 CREAT 0.8 07/11/2017 GLU 93 07/11/2017 CA 9.7 07/11/2017 GFR > 60 07/11/2017 * Telephone Encounter - Lulu Chew - 08/04/2017 10:52 AM EDT Patient would like script to be: E-PRESCRIBED/FAXED TO PHARMACY WHEN WAS THE PATIENT'S LAST APPOINTMENT IN ADULT MEDICINE? 07/24/17 WHEN WAS THE LAST TIME THE PATIENT SAW THEIR PCP? Same as above Does patient have an upcoming appointment? Yes 11/23/17 (THE MEDICATION REQUESTED IS ON THE MED LIST ABOVE) All of the medications requested were on the CURRENT MEDS list Did you check the Pharmacy information above?: YES Patient wants: 90 -day supply Is this a mail order prescription request ? NO Patients current insurance carrier is: [place] / Product Type: MED[place]ARE [id number] documented in this encounter Plan of Treatment Not on file documented as of this encounter Visit Diagnoses Diagnosis Other specified hypothyroidism Moderate persistent asthma with acute exacerbation Type 2 diabetes mellitus with diabetic neuropathy (HCC) Type II or unspecified type diabetes mellitus with neurological manifestations, not stated as uncontrolled Essential hypertension Unspecified essential hypertension Hyperlipidemia Other and unspecified hyperlipidemia Gastroesophageal reflux disease without esophagitis Esophageal reflux documented in this encounter Care Teams Car Pilot Relationship Specialty Start Date End Date Robinson Howe MD [address] [place] [address] PCP - General Internal Medicine 11/03/14 04/13/20 Jesus Monterroso MD [address] [place], [place] [phone] PCP - General Internal Medicine 04/14/20 07/05/20 Abram Gardner MD [address] [place] [address] PCP - General Internal Medicine 07/06/20 12/24/20 Michael Gillette MD [address] [place] [address] PCP - General Internal Medicine 12/25/20 06/28/21 [facility], Pcp [address] [place] [address] PCP - General Internal Medicine 06/29/21 11/14/21 Napoleon Linda [address] [place] [address] PCP - General Internal Medicine 11/15/21 04/20/22 [facility], Pcp [address] [place] [address] PCP - General Internal Medicine 04/21/22 documented as of this encounter
--- OUTSIDE RECORDS SUMMARY | 2024-04-12 09:40 | XMS_ITS | Encounter Summary ---
Author Organization [facility] Address [address] [place] [address] Care Team Providers Care Playback Operator Name Role Phone Robinson Howe MD Primary Care Provider [phone] Jesus Monterroso MD Primary Care Provider Abram Flores MD Primary Care Provider Unavailab Michael Duvall MD Primary Care Provider Unavagabriel nguyen [facility], Pcp Primary Care Provider UnavailNapoleon White Primary Care Provider [phone] [facility], Pcp Primary Care Provider Unavailguido e Encounter Details Date Type Department Care Team Description 06/27/2016 Orders Only Medical Records [address] [place] [address] Alexandria Todd MD [address] [place] [address] [facility] [place] [id number] Social History Tobacco Use Types Packs/Day Years [...] on file documented as of this encounter Procedures Procedure Name Priority Date/Time Associated Diagnosis Comments OUTSIDE MRI/MRA Routine 06/16/2016 documented in this encounter Results * OUTSIDE MRI/MRA (06/16/2016) Alexandria Todd MD RADIOLOGY documented in this encounter Visit Diagnoses Not on filedocumented in this encounter Care Teams Playback Operator Relationship Specialty Start Date End Date Robinson Howe MD [address] [place] [address] PCP - General Internal Medicine 11/03/14 04/13/20 Jesus Monterroso MD [address] [place] [address] PCP - General Internal Medicine 04/14/20 07/05/20 Abram Gardner MD [address] [place] [address] PCP - General Internal Medicine 07/06/20 12/24/20 Michael Gillette MD [address] [place] [address] PCP - General Internal Medicine 12/25/20 06/28/21 [facility], Pcp [address] [place] [address] PCP - General Internal Medicine 06/29/21 11/14/21 Napoleon Linda [address] [place] [address] PCP - General Internal Medicine 11/15/21 04/20/22 [facility], Pcp [address] [place] [address] PCP - General Internal Medicine 04/21/22 documented as of this encounter
--- OUTSIDE RECORDS SUMMARY | 2024-04-12 09:40 | XMS_ITS | Encounter Summary ---
Author Organization [facility] Address [address] [place] [address] Care Team Providers Care Letter Stamping Machine Operator Name Role Phone Robinson Howe MD Primary Care Provider [phone] Jesus Monterroso MD Primary Care Provider Abram Flores MD Primary Care Provider Michael Hinojosa MD Primary Care Provider Driss nguyen [facility], Pcp Primary Care Provider Napoleon Mejia Primary Care Provider [phone] [facility], Pcp Primary Care Provider Maria T grace Encounter Details Date Type Department Care Team Description 01/21/2015 Business Doc Medical Records [address] [place] [address] Abstract, Provider Social History Tobacco Use Types [...] on filedocumented in this encounter Care Teams Letter Stamping Machine Operator Relationship Specialty Start Date End Date Robinson Howe MD [address] [place] [address] PCP - General Internal Medicine 11/03/14 04/13/20 Jesus Monterroso MD [address] [place] [address] PCP - General Internal Medicine 04/14/20 07/05/20 Abram Gardner MD [address] [place] [address] PCP - General Internal Medicine 07/06/20 12/24/20 Michael Gillette MD [address] [place] [address] PCP - General Internal Medicine 12/25/20 06/28/21 [facility], Pcp [address] [place], [place] [phone] PCP - General Internal Medicine 06/29/21 11/14/21 Napoleon Linda [address] [place] [address] PCP - General Internal Medicine 11/15/21 04/20/22 [facility], Pcp [address] [place] [address] PCP - General Internal Medicine 04/21/22 documented as of this encounter
--- OUTSIDE RECORDS SUMMARY | 2024-04-12 09:40 | XMS_ITS | Encounter Summary ---
Author Organization [facility] Address [address] [place] [address] Care Team Providers Care Truck Body Repairer Name Role Phone Abram Gardner MD Primary Care Provider Michael Hinojosa MD Primary Care Provider Driss nguyen [facility], Pcp Primary Care Provider Napoleon Mejia Primary Care Provider [phone] [facility], Pcp Primary Care Provider Unavailabl e Reason for Visit * Reason Comments E-prescribe Rx Request Encounter Details Date Type Department Care Team Description 08/25/2020 Refill Allergy [facility] [address] [place] [address] Cait Dumas MD E-prescribe Rx Request Social [...] have Coronavirus / COVID-19? No / Unsure 08/28/2020 4:25 PM EDT documented as of this encounter Plan of Treatment Not on file documented as of this encounter Visit Diagnoses Not on filedocumented in this encounter Care Teams Truck Body Repairer Relationship Specialty Start Date End Date Abram Gardner MD PCP - General Internal Medicine 07/06/20 12/24/20 Michael Gillette MD PCP - General Internal Medicine 12/25/20 06/28/21 [facility] Pcp PCP - General Internal Medicine 06/29/21 11/14/21 Napoleon Linda [address] [place] [address] PCP - General Internal Medicine 11/15/21 04/20/22 [facility], Pcp PCP - General Internal Medicine 04/21/22 documented as of this encounter
--- OUTSIDE RECORDS SUMMARY | 2024-04-12 09:40 | XMS_ITS | Encounter Summary ---
Author Organization [facility] Address [address] [place] [address] Care Team Providers Care Tobacco Dipper Name Role Phone Robinson Howe MD Primary Care Provider + [phone] Jesus Monterroso MD Primary Care Provider Abram Flores MD Primary Care Provider Unavailab Michael Duvall MD Primary Care Provider Driss nguyen [facility], Pcp Primary Care Provider Unavailabl e Napoleon Linda Primary Care Provider [facility], [facility]cp Primary Care Provider Unavailabl e Reason for Visit * Reason Onset Date Comments Faxed Order 09/26/2017 Encounter Details Date Type Department Care Team Description 09/26/2017 Telephone Adult [address] [id number] Robinson Howe MD [address] [place] [address] [phone] Faxed Order Social History Tobacco Use Types [...] encounter Miscellaneous Notes * Telephone Encounter - Yulisa Alexandra - 09/26/2017 10:[address] [facility], Referral Form, documented in this encounter Plan of Treatment Not on file documented as of this encounter Visit Diagnoses Not on filedocumented in this encounter Care Teams Tobacco Dipper Relationship Specialty Start Date End Date Robinson Howe MD [address] [place] [address] PCP - General Internal Medicine 11/03/14 04/13/20 Jesus Monterroso MD [address] [place] [address] PCP - General Internal Medicine 04/14/20 07/05/20 Abram Gardner MD [address] [place] [address] PCP - General Internal Medicine 07/06/20 12/24/20 Michael Gillette MD [address] [place] [address] PCP - General Internal Medicine 12/25/20 06/28/21 [facility] Pcp [address] [place] [address] PCP - General Internal Medicine 06/29/21 11/14/21 Napoleon Linda [address] [place] [address] PCP - General Internal Medicine 11/15/21 04/20/22 [facility], Pcp [address] [place], [place] [phone] PCP - General Internal Medicine 04/21/22 documented as of this encounter
--- OUTSIDE RECORDS SUMMARY | 2024-04-12 09:40 | XMS_ITS | Encounter Summary ---
Author Organization [facility] Address [address] [place] [address] Care Team Providers Care Furnace Filler Name Role Phone Abram Gardner MD Primary Care Provider Michael Hinojosa MD [facility] Provider Napoleon Mejia Primary Care Provider [phone] [facility], Pcp Primary Care Provider Maria T grace Encounter Details Date Type Department Care Team Description 08/05/2020 Telephone Adult Medicine [address] [address] Abram Gardner MD Social History Tobacco Use [...] Telephone Encounter - Cathy Valero M.A. - 08/06/2020 4:52 PM EDT Note 07/06 office visit Follow up 11/06 * Telephone Encounter - Abram Gardner MD - 08/05/2020 6:01 PM EDT Patient needs to establish with PCP in 4 to 6 weeks. documented in this encounter Plan of Treatment Not on file documented as of this encounter Visit Diagnoses Not on filedocumented in this encounter Care Teams Furnace Filler Relationship Specialty Start Date End Date Abram Gardner MD PCP - General Internal Medicine 07/06/20 12/24/20 Michael Gillette MD PCP - General Internal Medicine 12/25/20 06/28/21 [facility], Pcp PCP - General Internal Medicine 06/29/21 11/14/21 Napoleon Linda [address] [place] [address] PCP - General Internal Medicine 11/15/21 04/20/22 [facility], Pcp PCP - General Internal Medicine 04/21/22 documented as of this encounter
--- OUTSIDE RECORDS SUMMARY | 2024-04-12 09:40 | XMS_ITS | Encounter Summary ---
Author Organization [facility] Address [address] [place] [address] Care Team Providers Care Pcas Name Role Phone Robinson Howe MD Primary Care Provider + [phone] Jesus Monterroso MD Primary Care Provider Abram Flores MD Primary Care Provider Unavailab Michael Duvall MD Primary Care Provider Driss nguyen [facility], Pcp Primary Care Provider UnavailNapoleon White Primary Care Provider [phone] [facility], Pcp Primary Care Provider Unavailabl e Reason for Visit * Reason Comments E-prescribe Rx Request Encounter Details Date Type Department Care Team Description 09/17/2016 Refill Adult Medicine [address] [phone] Jerod Daniel PA-C [address] [place] [address] [phone] E-prescribe Rx Request Social History Tobacco Use [...] encounter Miscellaneous Notes * Telephone Encounter - Camryn Farrisde - 09/19/2016 11:38 AM EDT Patient would like script to be: E-PRESCRIBED/FAXED TO PHARMACY WHEN WAS THE PATIENT'S LAST APPOINTMENT IN ADULT MEDICINE? 08/11/16 WHEN WAS THE LAST TIME THE PATIENT SAW THEIR PCP? Same as above Does patient have an upcoming appointment? Yes 12/12/16 (THE MEDICATION REQUESTED IS ON THE MED LIST ABOVE) All of the medications requested were on the CURRENT MEDS list Did you check the Pharmacy information above?: YES Patient wants: 90 -day supply Is this a mail order prescription request ? NO Patients current insurance carrier is: [place] / [place] / Product Type: MEDICARE [id number] documented in this encounter Plan of Treatment Not on file documented as of this encounter Visit Diagnoses Diagnosis Type 2 diabetes mellitus with diabetic neuropathy (HCC) Type II or unspecified type diabetes mellitus with neurological manifestations, not stated as uncontrolled Hyperlipidemia Other and unspecified hyperlipidemia Essential hypertension Unspecified essential hypertension Other specified hypothyroidism Gastroesophageal reflux disease without esophagitis Esophageal reflux Right hip pain Pain in joint, pelvic region and thigh Need for prophylactic vaccination and inoculation against influenza Hypothyroidism due to acquired atrophy of thyroid Screening for viral disease Special screening examination for unspecified viral disease Metatarsalgia of both feet Enthesopathy of ankle and tarsus, unspecified Pain in both feet Pain in limb Moderate persistent asthma with acute exacerbation documented in this encounter Care Teams Pcas Relationship Specialty Start Date End Date Robinson Howe MD [address] [place] [address] PCP - General Internal Medicine 11/03/14 04/13/20 Jesus Monterroso MD [address] [place] [address] PCP - General Internal Medicine 04/14/20 07/05/20 Abram Gardner MD [address] [place] [address] PCP - General Internal Medicine 07/06/20 12/24/20 Michael Gillette MD [address] [place] [address] PCP - General Internal Medicine 12/25/20 06/28/21 [facility], Pcp [address] [place], [place] [phone] PCP - General Internal Medicine 06/29/21 11/14/21 Napoleon Linda [address] [place] [address] PCP - General Internal Medicine 11/15/21 04/20/22 [facility], Pcp [address] [place] [address] PCP - General Internal Medicine 04/21/22 documented as of this encounter
--- OUTSIDE RECORDS SUMMARY | 2024-04-12 09:40 | XMS_ITS | Encounter Summary ---
Author Organization [facility] Address [address] [place] [address] Care Team Providers Care Pulp Drier Firer Name Role Phone Robinson Howe MD Primary Care Provider + [phone] Jesus Monterroso MD Primary Care Provider Abram Flores MD Primary Care Provider Unavailab Michael Duvall MD Primary Care Provider Driss nguyen [facility], Pcp Primary Care Provider Unavailabl Napoleon Ramirez Primary Care Provider [phone] [facility], Pcp Primary Care Provider Unavailabl e Reason for Visit * Reason Onset Date Comments Faxed Order 10/28/2017 [facility] Encounter Details Date Type Department Care Team Description 10/28/2017 Telephone Adult [address] [phone] Robinson Howe MD [address] [place] [address] [phone] Faxed Order ([facility]) Social History Tobacco Use Types Packs/Day Years [...] encounter Miscellaneous Notes * Telephone Encounter - Raine Cheatham - 10/28/2017 12:22 PM EDT Referral order for [facility] to be sign and fax back. documented in this encounter Plan of Treatment Not on file documented as of this encounter Visit Diagnoses Not on filedocumented in this encounter Care Teams Pulp Drier Firer Relationship Specialty Start Date End Date Robinson Howe MD [address] [place] [address] PCP - General Internal Medicine 11/03/14 04/13/20 Jesus Monterroso MD [address] [place] [address] PCP - General Internal Medicine 04/14/20 07/05/20 Abram Gardner MD [address] [place] [address] PCP - General Internal Medicine 07/06/20 12/24/20 Michael Gillette MD [address] [place] [address] PCP - General Internal Medicine 12/25/20 06/28/21 [facility], Pcp [address] [place], [place] [phone] PCP - General Internal Medicine 06/29/21 11/14/21 Napoleon Linda [address] [place], [place] [phone] PCP - General Internal Medicine 11/15/21 04/20/22 [facility], Pcp [address] [place], [place] [phone] PCP - General Internal Medicine 04/21/22 documented as of this encounter
--- OUTSIDE RECORDS SUMMARY | 2024-04-12 09:40 | XMS_ITS | Encounter Summary ---
Author Organization [facility] Address [address] [place] [address] Care Team Providers Care Coding Tech Name Role Phone Robinson Howe MD Primary Care Provider [phone] Jesus Monterroso MD Primary Care Provider Abram Flores MD Primary Care Provider Michael Hinojosa MD Primary Care Provider Driss nguyen [facility], Pcp Primary Care Provider Napoleon Mejia Primary Care Provider [phone] [facility], Pcp Primary Care Provider Maria T grace Encounter Details Date Type Department Care Team Description 05/05/2016 [facility] Medical Records [address] [place] [id number] Abstract, Provider Social History Tobacco Use Types [...] on filedocumented in this encounter Care Teams Coding Tech Relationship Specialty Start Date End Date Robinson Howe MD [address] [place] [address] PCP - General Internal Medicine 11/03/14 04/13/20 Jesus Monterroso MD [address] [place] [address] PCP - General Internal Medicine 04/14/20 07/05/20 Abram Gardner MD [address] [place] [address] PCP - General Internal Medicine 07/06/20 12/24/20 Michael Gillette MD [address] [place] [address] PCP - General Internal Medicine 12/25/20 06/28/21 [facility], Pcp [address] [place], [place] [phone] PCP - General Internal Medicine 06/29/21 11/14/21 Napoleon Linda [address] [place] [address] PCP - General Internal Medicine 11/15/21 04/20/22 [facility], Pcp [address] [place] [address] PCP - General Internal Medicine 04/21/22 documented as of this encounter
--- OUTSIDE RECORDS SUMMARY | 2024-04-12 09:40 | XMS_ITS | Encounter Summary ---
Author Organization [facility] Address [address] [place] [address] Care Team Providers Care Right Of Way Appraiser Name Role Phone Abram Gardner MD Primary Care Provider Michael Hinojosa MD Primary Care Provider Driss nguyen [facility], Pcp Primary Care Provider Napoleon Mejia Primary Care Provider [phone] [facility], Pcp Primary Care Provider Maria T grace Encounter Details Date Type Department Care Team Description 07/10/2020 Release of Information Medical Records [address] [place] [address] Abstract, Provider Social History Tobacco Use Types [...] have Coronavirus / COVID-19? No / Unsure 07/06/2020 11:11 AM EDT documented as of this encounter Plan of Treatment Not on file documented as of this encounter Visit Diagnoses Not on filedocumented in this encounter Care Teams Right Of Way Appraiser Relationship Specialty Start Date End Date Abram Gardner MD PCP - General Internal Medicine 07/06/20 12/24/20 Michael Gillette MD PCP - General Internal Medicine 12/25/20 06/28/21 [facility] Pcp PCP - General Internal Medicine 06/29/21 11/14/21 Napoleon Linda [address] [place] [address] PCP - General Internal Medicine 11/15/21 04/20/22 [facility], Pcp PCP - General Internal Medicine 04/21/22 documented as of this encounter
--- OUTSIDE RECORDS SUMMARY | 2024-04-12 09:40 | XMS_ITS | Encounter Summary ---
Author Organization [facility] Address [address] [place] [address] Care Team Providers Care Hospital Manager Name Role Phone Robinson Howe MD Primary Care Provider + [phone] Jesus Monterroso MD Primary Care Provider Abram Flores MD Primary Care Provider Michael Hinojosa MD Primary Care Provider Driss nguyen [facility], Pcp Primary Care Provider Napoleon Mejia Primary Care Provider [phone] [facility], Pcp Primary Care Provider Maria T grace Encounter Details Date Type Department Care Team Description 08/15/2018 Agricultural Economist Report Medical Records [address] [place] [phone] Becky Dolan MD Social History Tobacco Use Types Packs/Day [...] on filedocumented in this encounter Care Teams Hospital Manager Relationship Specialty Start Date End Date Robinson Howe MD [address] [place] [address] PCP - General Internal Medicine 11/03/14 04/13/20 Jesus Monterroso MD [address] [place] [address] PCP - General Internal Medicine 04/14/20 07/05/20 Abram Gardner MD [address] [place] [address] PCP - General Internal Medicine 07/06/20 12/24/20 Michael Gillette MD [address] [place] [address] PCP - General Internal Medicine 12/25/20 06/28/21 [facility], Pcp [address] [place], [place] [phone] PCP - General Internal Medicine 06/29/21 11/14/21 Napoleon Linda [address] [place] [address] PCP - General Internal Medicine 11/15/21 04/20/22 [facility], Pcp [address] [place] [address] PCP - General Internal Medicine 04/21/22 documented as of this encounter
--- OUTSIDE RECORDS SUMMARY | 2024-04-12 09:40 | XMS_ITS | Encounter Summary ---
Author Organization [facility] Address [address] [place] [address] Care Team Providers Care Draw End Hand Name Role Phone Robinson Howe MD Primary Care Provider + [phone] Jesus Monterroso MD Primary Care Provider Abram Flores MD Primary Care Provider Unavailab Michael Duvall MD Primary Care Provider Driss nguyen [facility], Pcp Primary Care Provider UnavailNapoleon White Primary Care Provider [phone] [facility], Pcp Primary Care Provider Unavailabl e Reason for Visit * Reason Comments E-prescribe Rx Request Encounter Details Date Type Department Care Team Description 01/05/2017 Refill Adult Medicine [address] [phone] Jerod Daniel PA-C [address] [place] [address] [phone] E-prescribe Rx Request Social History Tobacco Use [...] encounter Miscellaneous Notes * Telephone Encounter - Leola Ulises - 01/06/2017 9:36 AM EST Patient would like script to be: E-PRESCRIBED/FAXED TO PHARMACY WHEN WAS THE PATIENT'S LAST APPOINTMENT IN ADULT MEDICINE? 12/01/16 WHEN WAS THE LAST TIME THE PATIENT SAW THEIR PCP? 08/11/16 Does patient have an upcoming appointment? Yes 01/20/17 (THE MEDICATION REQUESTED IS ON THE MED LIST ABOVE) All of the medications requested were on the CURRENT MEDS list Did you check the Pharmacy information above?: YES Patient wants: 30 -day supply Is this a mail order prescription request ? NO Patients current insurance carrier is: [place] / [place] / Product Type: MEDICARE [id number] documented in this encounter Plan of Treatment Not on file documented as of this encounter Visit Diagnoses Not on filedocumented in this encounter Care Teams Draw End Hand Relationship Specialty Start Date End Date Robinson Howe MD [address] [place] [address] PCP - General Internal Medicine 11/03/14 04/13/20 Jesus Monterroso MD [address] [place] [address] PCP - General Internal Medicine 04/14/20 07/05/20 Abram Gardner MD [address] [place] [address] PCP - General Internal Medicine 07/06/20 12/24/20 Michael Gillette MD [address] [place] [address] PCP - General Internal Medicine 12/25/20 06/28/21 [facility] [address] [place] [address] PCP - General Internal Medicine 06/29/21 11/14/21 Napoleon Linda [address] [place] [address] PCP - General Internal Medicine 11/15/21 04/20/22 [facility], Santa [address] [place] [address] PCP - General Internal Medicine 04/21/22 documented as of this encounter
--- OUTSIDE RECORDS SUMMARY | 2024-04-12 09:40 | XMS_ITS | Encounter Summary ---
Author Organization [facility] Address [address] [place] [address] Care Team Providers Care Assistant Front End Manager Name Role Phone Robinson Howe MD Primary Care Provider + [phone] Jesus Monterroso MD Primary Care Provider Abram Flores MD Primary Care Provider Unavailab Michael Duvall MD Primary Care Provider Driss nguyen [facility], Pcp Primary Care Provider Unavailabl Napoleon Ramirez Primary Care Provider [phone] [facility], Pcp Primary Care Provider Unavailabl e Reason for Visit * Reason Onset Date Comments APPOINTMENT 09/10/2018 Encounter Details Date Type Department Care Team Description 09/10/2018 Telephone Podiatry - [address] [phone] Candido Nina DO APPOINTMENT Social History Tobacco Use Types Packs/Day Years [...] encounter Miscellaneous Notes * Telephone Encounter - Margarita Andrea - 09/18/2018 11:10 AM EDT I spoke to the patients daughter, (release on file) The patient is declining the injection that wasordered in May. She states she was never evaluated for her SI joint and wants to discuss first. Iinformed the patients daughter that this was discussed at her last visit but if she wants to talk about it again she is welcome to do so. I encouraged the daughter to have someone that speaks bengali come with her because there may have been a communication issue when the patient was here last withthe plastic press operator phone. She is scheduled on 10/04. GIANCARLO Machado. * Telephone Encounter - Toney Pineda - 09/18/2018 10:41 AM EDT Patient called asking to talk with the nurse. Patient is stating someone was supposed to call her before an injection. Patient has injection scheduled on 09/19/2018. Please call * Telephone Encounter - Margarita Andrea - 09/11/2018 9:46 AM EDT Attempt to call the patient x 2 with the pipe crew foreman phone. No anser, no voicemail. I spoke to the patients daughter (on release) she will contact her mother and have her call us. * Telephone Encounter - Airam Alfaro - 09/10/2018 2:22 PM EDT Patient would like a call from nurse prior to her appointment with Dr. Nina on 09/19. She has a few questions regardinh the procedure for this appointment. She is a Jamaican speaker, so is requsting someone that can speak Jamaican. Please follow up and advise patient. documented in this encounter Plan of Treatment Not on file documented as of this encounter Visit Diagnoses Not on filedocumented in this encounter Care Teams Assistant Front End Manager Relationship Specialty Start Date End Date Robinson Howe MD [address] [place] [address] PCP - General Internal Medicine 11/03/14 04/13/20 Jesus Monterroso MD [address] [place] [address] PCP - General Internal Medicine 04/14/20 07/05/20 Abram Gardner MD [address] [place] [address] PCP - General Internal Medicine 07/06/20 12/24/20 Michael Gillette MD [address] [place] [address] PCP - General Internal Medicine 12/25/20 06/28/21 [facility], Pcp [address] [place] [address] PCP - General Internal Medicine 06/29/21 11/14/21 Napoleon Linda [address] [place] [address] PCP - General Internal Medicine 11/15/21 04/20/22 [facility], Pcp [address] [place] [address] PCP - General Internal Medicine 04/21/22 documented as of this encounter
--- OUTSIDE RECORDS SUMMARY | 2024-04-12 09:40 | XMS_ITS | Encounter Summary ---
Author Organization [facility] Address [address] [place] [address] Care Team Providers Care Wire Welder Name Role Phone Ruddy Cruz MD Primary Care Provider Unavail able Robinson Howe MD Primary Care Provider [phone] Jesus Monterroso MD Primary Care Provider Abram Flores MD Primary Care Provider Unavailab Michael Duvall MD Primary Care Provider Mariaelenavagabriel nguyen [facility], Pcp Primary Care Provider UnavailNapoleon White Primary Care Provider [phone] [facility], Pcp Primary Care Provider Unavailabl e Encounter Details Date Type Department Care Team Description 07/24/2014 Business Doc Medical Records [address] [place] [id number] Abstract, Provider Social History Tobacco Use Types [...] on filedocumented in this encounter Care Teams Wire Welder Relationship Specialty Start Date End Date Ruddy Cruz MD PCP - General Internal Medicine 12/19/13 11/02/14 Robinson Howe MD [address] [place] [address] [phone] PCP - General Internal Medicine 11/03/14 04/13/20 Jesus Monterroso MD [address] [place] [address] PCP - General Internal Medicine 04/14/20 07/05/20 Abram Gardner MD [address] [place] [address] PCP - General Internal Medicine 07/06/20 12/24/20 Michael Gillette MD [address] [place] [address] PCP - General Internal Medicine 12/25/20 06/28/21 [facility], Pcp [address] [place] [address] PCP - General Internal Medicine 06/29/21 11/14/21 Napoleon Linda [address] [place], [place] [phone] PCP - General Internal Medicine 11/15/21 04/20/22 [facility], Pcp [address] [place] [address] PCP - General Internal Medicine 04/21/22 documented as of this encounter
--- OUTSIDE RECORDS SUMMARY | 2024-04-12 09:40 | XMS_ITS | Encounter Summary ---
Author Organization [facility] Address [address] [place] [address] Care Team Providers Care Sweater Operator Name Role Phone Robinson Howe MD Primary Care Provider + [phone] Jesus Monterroso MD Primary Care Provider Abram Flores MD Primary Care Provider Michael Hinojosa MD Primary Care Provider Driss nguyen [facility], Pcp Primary Care Provider Napoleon Mejia Primary Care Provider [facility], Pcp Primary Care Provider Maria T grace Encounter Details Date Type Department Care Team Description 03/02/2017 Business Doc Medical Records [address] [place] [id number] Abstract, Provider Social History Tobacco Use Types [...] on filedocumented in this encounter Care Teams Sweater Operator Relationship Specialty Start Date End Date Robinson Howe MD [address] [place] [address] PCP - General Internal Medicine 11/03/14 04/13/20 Jesus Monterroso MD [address] [place] [address] PCP - General Internal Medicine 04/14/20 07/05/20 Abram Gardner MD [address] [place] [address] PCP - General Internal Medicine 07/06/20 12/24/20 Michael Gillette MD [address] [place] [address] PCP - General Internal Medicine 12/25/20 06/28/21 [facility], Pcp [address] [place], [place] [phone] PCP - General Internal Medicine 06/29/21 11/14/21 Napoleon Linda [address] [place] [address] PCP - General Internal Medicine 11/15/21 04/20/22 [facility], Pcp [address] [place] [address] PCP - General Internal Medicine 04/21/22 documented as of this encounter
--- OUTSIDE RECORDS SUMMARY | 2024-04-12 09:40 | XMS_ITS | Encounter Summary ---
Author Organization [facility] Address [address] [place] [address] Care Team Providers Care Surveillance Operator Name Role Phone Robinson Howe MD Primary Care Provider + [phone] Jesus Monterroso MD Primary Care Provider Abram Flores MD Primary Care Provider Unavailab Michael Duvall MD Primary Care Provider Mariaelenavagabriel nguyen [facility], Pcp Primary Care Provider UnavailNapoleon White Primary Care Provider [phone] [facility], Pcp Primary Care Provider Unavailabl e Reason for Visit * Reason Comments E-prescribe Rx Request Encounter Details Date Type Department Care Team Description 07/20/2016 Refill Physiatry - [address] [address] Alexandria Todd MD [address] [place] [address] [place] [id number] E-prescribe Rx Request Social History Tobacco Use [...] encounter Miscellaneous Notes * Telephone Encounter - Che De León M.A. - 07/20/2016 10:51 AM EDT Last ov 05/13/16 Last refill 06/27/16 Next ov 08/12/16 documented in this encounter Plan of Treatment Not on file documented as of this encounter Visit Diagnoses Not on filedocumented in this encounter Care Teams Surveillance Operator Relationship Specialty Start Date End Date Robinson Howe MD [address] [place] [address] PCP - General Internal Medicine 11/03/14 04/13/20 Jesus Monterroso MD [address] [place] [address] PCP - General Internal Medicine 04/14/20 07/05/20 Abram Gardner MD [address] [place], [place] [id number] PCP - General Internal Medicine 07/06/20 12/24/20 Michael Gillette MD [address] [place] [address] PCP - General Internal Medicine 12/25/20 06/28/21 [facility], Pcp [address] [place] [address] PCP - General Internal Medicine 06/29/21 11/14/21 Napoleon Linda [address] [place], [place] [id number] PCP - General Internal Medicine 11/15/21 04/20/22 [facility], Pcp [address] [place], [place] [phone] PCP - General Internal Medicine 04/21/22 documented as of this encounter
--- OUTSIDE RECORDS SUMMARY | 2024-04-12 09:41 | XMS_ITS | Encounter Summary ---
Author Organization [facility] Address [address] [place] [address] Care Team Providers Care Paid Search Marketing Strategist Name Role Phone Louisa Machuca MD Primary Care Provider Unavailable Ruddy Cruz MD Primary Care Provider Unavail able Robinson Howe MD Primary Care Provider + [phone] Jesus Monterroso MD Primary Care Provider Abram Flores MD Primary Care Provider Unavailab Michael Duvall MD Primary Care Provider Mariaelenavagabriel nguyen [facility], Pcp Primary Care Provider UnavailNapoleon White Primary Care Provider [phone] [facility] Pcp Primary Care Provider Unavailguido grace Encounter Details Date Type Department Care Team Description 11/20/2013 Orders Only Podiatry - [address] [address] Devan Durbin DPM Social History Tobacco Use Types Packs/Day Years [...] on filedocumented in this encounter Care Teams Paid Search Marketing Strategist Relationship Specialty Start Date End Date Louisa Machuca MD PCP - General Internal Medicine 07/17/13 Ruddy Cruz MD PCP - General Internal Medicine 12/19/13 11/02/14 Robinson Howe MD [address] [place] [address] PCP - General Internal Medicine 11/03/14 04/13/20 Jesus Monterroso MD [address] [place] [address] PCP - General Internal Medicine 04/14/20 07/05/20 Abram Gardner MD [address] [place], [place] [phone] PCP - General Internal Medicine 07/06/20 12/24/20 Michael Gillette MD [address] [place] [address] PCP - General Internal Medicine 12/25/20 06/28/21 [facility], Pcp [address] [place] [address] PCP - General Internal Medicine 06/29/21 11/14/21 Napoleon Linda [address] [place] [address] PCP - General Internal Medicine 11/15/21 04/20/22 [facility], Pcp [address] [place] [address] PCP - General Internal Medicine 04/21/22 documented as of this encounter
--- OUTSIDE RECORDS SUMMARY | 2024-04-12 09:41 | XMS_ITS | Encounter Summary ---
Author Organization [facility] Address [address] [place] [address] Care Team Providers Care Crna Name Role Phone Robinson Howe MD Primary Care Provider + [phone] Jesus Monterroso MD Primary Care Provider Abram Flores MD Primary Care Provider Unavailab Michael Duvall MD Primary Care Provider Unavai patrick [facility], Pcp Primary Care Provider UnavailNapoleon White Primary Care Provider [phone] [facility], Pcp Primary Care Provider Unavailguido e Encounter Details Date Type Department Care Team Description 01/18/2018 Orders Only Medical Records [address] [place] [address] Terrence Corral MD [address] [place] [id number] Social History Tobacco Use Types Packs/Day Years [...] Name Priority Date/Time Associated Diagnosis Comments OUTSIDE PLAIN FILM Routine 01/17/2018 documented in this encounter Results * OUTSIDE PLAIN FILM (01/17/2018) Terrence Corral MD RADIOLOGY documented in this encounter Visit Diagnoses Not on filedocumented in this encounter Care Teams Crna Relationship Specialty Start Date End Date Robinson Howe MD [address] [place] [address] PCP - General Internal Medicine 11/03/14 04/13/20 Jesus Monterroso MD [address] [place] [address] PCP - General Internal Medicine 04/14/20 07/05/20 Abram Gardner MD [address] [place] [address] PCP - General Internal Medicine 07/06/20 12/24/20 Michael Gillette MD [address] [place] [address] PCP - General Internal Medicine 12/25/20 06/28/21 [facility], Pcp [address] [place] [address] PCP - General Internal Medicine 06/29/21 11/14/21 Napoleon Linda [address] [place] [address] PCP - General Internal Medicine 11/15/21 04/20/22 [facility], Pcp [address] [place], [place] [id number] PCP - General Internal Medicine 04/21/22 documented as of this encounter
--- OUTSIDE RECORDS SUMMARY | 2024-04-12 09:41 | XMS_ITS | Encounter Summary ---
Author Organization [employer] Address [address] [place] [address] [address] [place] [address] Care Team Providers Care Brake Drum Molder Name Role Phone Unavailable Primary Care Provider Unavailabl e Reason for Visit * Reason Comments Routine Cleaning Encounter Details Date Type Department Care Team ([facility] st Contact Info) Description 03/15/2024 10:00 AM EST Office Visit [facility] [address] [place] [address] DelaneyMadeline [address] [place] [address] Dental plaque (Primary Dx) Social History Tobacco Use Types Packs/Day Years [...] AM EDT documented as of this encounter Last Filed Vital Signs Vital Sign Reading Time Taken Comments Blood Pressure 130/70 03/15/2024 9:59 AM EST Pulse - - Temperature - - Respiratory Rate - - Oxygen Saturation - - Inhaled Oxygen Concentration - - Weight - - Height - - Body Mass Index - - documented in this encounter Progress Notes * Madeline Baltazar - 03/15/2024 10:00 AM EST Patient ID: Joanna Osman is a 73 y.o. female. Time Out: Timeout Date: 03/15/24, Timeout Time: 1010 (Prophy) Location: [facility] Tooth: Maxilla and Mandible Procedure: Prophylaxis Verified the above with patient, mri assistant, and provider. Confirmed via patient's chart, intraorally and by radiographs. Auto Air Conditioning Installer: not applicable Medical Hx: Vitals: Blood pressure 130/70. Medications, Med Hx reviewed with patient and updated in chart. Treatment Provided Dental procedures in this visit D1110 - PROPHYLAXIS - ADULT (Completed) Service provider: Madeline Baltazar Billpiper provider: Rashi Patel DMD D1206 - TOPICAL APPLICATION OF FLUORIDE VARNISH (Completed) Service provider: Madeline Salomon provider: Rashi Patel DMD D9450 - ADJUNCTIVE GENERAL SERVICES - PROFESSIONAL VISITS - CASE PRESENTATION, SUBSEQUENT TO DETAILED AND EXTENSIVE TREATMENT PLANNING (Completed) Service provider: Madeline Salomon provider: Rashi Patel DMD D1330 - ORAL HYGIENE INSTRUCTIONS (Completed) Service provider: Madeline Baltazar Billpiper provider: Rashi Patel DMD Instruments Used: Ultrasonic Scalers and Prophy angle Fluoride: 5% NaF varnish applied and POI given Oral Cancer Screening: No lesions Head/Neck Exam: No Lesions Calculus: trace Plaque: Light Stain: Light coffee stains Bleeding: None Gingiva: pink [place]: Good Perio Chart: completed Oral hygiene instructions provided to patient including brushing technique and flossing. Recommendations: [place] two times daily, modified whitfield technique, Floss daily, Electric toothbrush, Soft bristle toothbrush, [place] Tongue, Anti-sensitivity toothpaste Recall Frequency: 6 mo [place]: 6 months for prophy, x-rays, P. exam Hygienist: Madeline Baltazar RDH documented in this encounter Plan of Treatment Upcoming Encounters Date Type Department Care Team (Late st Contact Info) Description 09/13/2024 3:00 PM EDT Office Visit [facility] [address] [place] [address] Madeline Baltazar [address] [place] [address] Scheduled Orders Name Type Priority Associated Diagnoses Orde r Schedule PERIODIC ORAL EVALUATION - ESTABLISHED PATIENT Dental Routine 1 Occurren sue starting 03/15/2024 BITEWINGS - 4 RADIOGRAPHIC IMAGES Dental Routine 1 Occurrence s starting 03/15/2024 INTRAORAL - PERIAPICAL FIRST RADIOGRAPHIC IMAGE Dental Routine 1 Occur rences starting 03/15/2024 INTRAORAL - PERIAPICAL EACH ADDITIONAL RADIOGRAPHIC IMAGE Dental Routine 1 Occurrences starting 03/15/2024 PROPHYLAXIS - ADULT Dental Routine 1 Occ urrences starting 03/15/2024 ORAL HYGIENE INSTRUCTIONS Dental Routine 1 Occurrences starting 03/15/2024 ADJUNCTIVE GENERAL SERVICES - PROFESSIONAL VISITS - CASE PRESENTATION, SUBSEQUENT TO DETAILED AND EXTENSIVE TREATMENT PLANNING Dental Routine 1 Occurrence s starting 03/15/2024 documented as of this encounter Procedures Procedure Name Priority Date/Time Associated Diagnosis Comments TOPICAL APPLICATION OF FLUORIDE VARNISH Routine 03/15/2024 10:00 AM EST Dental plaque PROPHYLAXIS - ADULT Routine 03/15/2024 1 0:00 AM EST Dental plaque ORAL HYGIENE INSTRUCTIONS Routine 2024 10:00 AM EST Dental plaque CASE PRESENTATION, DETAILED AND EXTENSIVE TREATMENT PLANNING Routine 03/15/2024 10:00 AM EST Dental plaque documented in this encounter Visit Diagnoses Diagnosis Dental plaque- Primary Accretions on teeth documented in this encounter
--- OUTSIDE RECORDS SUMMARY | 2024-04-12 09:41 | XMS_ITS | Encounter Summary ---
Author Organization [facility] Address [address] [place] [address] Care Team Providers Care Psych Tech Name Role Phone Louisa Machuca MD Primary Care Provider Unavailable Ruddy Cruz MD Primary Care Provider Unavail able Robinson Howe MD Primary Care Provider + [phone] Jesus Monterroso MD Primary Care Provider Abram Flores MD Primary Care Provider Unavailab Michael Duvall MD Primary Care Provider Driss nguyen [facility], Pcp Primary Care Provider UnavailNapoleon White Primary Care Provider [phone] [facility], Pcp Primary Care Provider Maria T grace Encounter Details Date Type Department Care Team Description 12/18/2013 Business Doc Medical Records [address] [place] [id number] Abstract, Provider Social History Tobacco Use Types [...] on filedocumented in this encounter Care Teams Psych Tech Relationship Specialty Start Date End Date Louisa Machuca MD PCP - General Internal Medicine 07/17/13 Ruddy Cruz MD PCP - General Internal Medicine 12/19/13 11/02/14 Robinson Howe MD [address] [place] [address] PCP - General Internal Medicine 11/03/14 04/13/20 Jesus Monterroso MD [address] [place] [address] PCP - General Internal Medicine 04/14/20 07/05/20 Abram Gardner MD [address] [place] [address] PCP - General Internal Medicine 07/06/20 12/24/20 Michael Gillette MD [address] [place] [address] PCP - General Internal Medicine 12/25/20 06/28/21 [facility], Pcp [address] [place] [address] PCP - General Internal Medicine 06/29/21 11/14/21 Napoleon Linda [address] [place] [address] PCP - General Internal Medicine 11/15/21 04/20/22 [facility], Pcp [address] [place] [address] PCP - General Internal Medicine 04/21/22 documented as of this encounter
--- OUTSIDE RECORDS SUMMARY | 2024-04-12 09:41 | XMS_ITS | Encounter Summary ---
Author Organization [facility] Address [address] [place] [address] Care Team Providers Care Rfid Systems Engineer Name Role Phone Robinson Howe MD Primary Care Provider + [phone] Jesus Monterroso MD Primary Care Provider Abram Flores MD Primary Care Provider Michael Hinojosa MD Primary Care Provider Driss nguyen [facility], Pcp Primary Care Provider Napoleon Mejia Primary Care Provider [phone] [facility], Pcp Primary Care Provider Maria T grace Encounter Details Date Type Department Care Team Description 02/28/2018 Banquet Stewardess Report Medical Records [address] [place] [id number] Abstract, Provider Social History Tobacco Use Types [...] on filedocumented in this encounter Care Teams Rfid Systems Engineer Relationship Specialty Start Date End Date Robinson Howe MD [address] [place] [address] PCP - General Internal Medicine 11/03/14 04/13/20 Jesus Monterroso MD [address] [place] [address] PCP - General Internal Medicine 04/14/20 07/05/20 Abram Gardner MD [address] [place], [place] [phone] PCP - General Internal Medicine 07/06/20 12/24/20 Michael Gillette MD [address] [place] [address] PCP - General Internal Medicine 12/25/20 06/28/21 [facility], Pcp [address] [place], [place] [phone] PCP - General Internal Medicine 06/29/21 11/14/21 Napoleon Linda [address] [place] [address] PCP - General Internal Medicine 11/15/21 04/20/22 [facility], Pcp [address] [place] [address] PCP - General Internal Medicine 04/21/22 documented as of this encounter
--- OUTSIDE RECORDS SUMMARY | 2024-04-12 09:41 | XMS_ITS | Encounter Summary ---
Author Organization [facility] Address [address] [place] [address] Care Team Providers Care Cryptologic Technician Technical Name Role Phone Robinson Howe MD Primary Care Provider + [phone] Jesus Monterroso MD Primary Care Provider Abram Flores MD Primary Care Provider UnavailMichael Elmore MD Primary Care Provider Driss nguyen [facility], Pcp Primary Care Provider UnavailNapoleon White Primary Care Provider [phone] [facility], Pcp Primary Care Provider Maria T grace Encounter Details Date Type Department Care Team Description 03/11/2016 Orders Only Medical Records [address] [place] [address] Jerod Daniel PA-C [address] [place] [id number] Social History Tobacco Use Types Packs/Day Years [...] Date/Time Associated Diagnosis Comments OUTSIDE MRI/MRA Routine 02/29/2016 documented in this encounter Results * OUTSIDE MRI/MRA (02/29/2016) Jerod Daniel PA-C RADIOLOGY documented in this encounter Visit Diagnoses Not on filedocumented in this encounter Care Teams Cryptologic Technician Technical Relationship Specialty Start Date End Date Robinson Howe MD [address] [place] [address] PCP - General Internal Medicine 11/03/14 04/13/20 Jesus Monterroso MD [address] [place] [address] PCP - General Internal Medicine 04/14/20 07/05/20 Abram Gardner MD [address] [place] [address] PCP - General Internal Medicine 07/06/20 12/24/20 Michael Gillette MD [address] [place] [address] PCP - General Internal Medicine 12/25/20 06/28/21 [facility], Pcp [address] [place] [address] PCP - General Internal Medicine 06/29/21 11/14/21 Napoleon Linda [address] [place] [address] PCP - General Internal Medicine 11/15/21 04/20/22 [facility], Pcp [address] [place] [address] PCP - General Internal Medicine 04/21/22 documented as of this encounter
--- OUTSIDE RECORDS SUMMARY | 2024-04-12 09:41 | XMS_ITS | Encounter Summary ---
Author Organization [facility] Address [address] [place] [address] Care Team Providers Care Sales Operations Name Role Phone Louisa Machuca MD Primary Care Provider Unavailable Ruddy Cruz MD Primary Care Provider Unavail able Robinson Howe MD Primary Care Provider + [phone] Jesus Monterroso MD Primary Care Provider Abram Flores MD Primary Care Provider Unavailab Michael Duvall MD Primary Care Provider Driss nguyen [facility], Pcp Primary Care Provider UnavailNapoleon White Primary Care Provider [phone] [facility], Pcp Primary Care Provider Unavailguido grace Encounter Details Date Type Department Care Team Description 10/23/2013 Orders Only OBGYN - [address] [address] Kate Mai MD Social History Tobacco Use Types Packs/Day [...] on filedocumented in this encounter Care Teams Sales Operations Relationship Specialty Start Date End Date Louisa Machuca MD PCP - General Internal Medicine 07/17/13 Ruddy Cruz MD PCP - General Internal Medicine 12/19/13 11/02/14 Robinson Howe MD [address] [place] [address] PCP - General Internal Medicine 11/03/14 04/13/20 Jesus Monterroso MD [address] [place] [address] PCP - General Internal Medicine 04/14/20 07/05/20 Abram Gardner MD [address] [place], [place] [phone] PCP - General Internal Medicine 07/06/20 12/24/20 Michael Gillette MD [address] [place] [address] PCP - General Internal Medicine 12/25/20 06/28/21 [facility], Pcp [address] [place] [address] PCP - General Internal Medicine 06/29/21 11/14/21 Napoleon Linda [address] [place] [address] PCP - General Internal Medicine 11/15/21 04/20/22 [facility], Pcp [address] [place] [address] PCP - General Internal Medicine 04/21/22 documented as of this encounter
== END 2024-04-12 10:02 | disposition home or self-care (01) ==
PROVIDERS: PCP Internal Medicine; Visit Provider Internal Medicine
DX: N63.22 Unspecified lump in the left breast, upper inner quadrant (principal)

== ENCOUNTER → 2024-04-12 09:12 | Outpatient (BNVA) | payer OTHER, SELFPAY | PROVIDERS: PCP Internal Medicine; Visit Provider Internal Medicine | DX: N63.22 Unspecified lump in the left breast, upper inner quadrant (principal) | CPT/HCPCS: 96127; 99212 ==

== ENCOUNTER 2024-04-16 07:16 | Day surgery (SDC) | payer OTHER, SELFPAY ==
[2024-04-12 11:45] VITALS: BMI 28.2
--- NOTE | 2024-04-15 09:04 | HO.ANESPROP2 ---
Documented by User: Ines Marquis NP 04/15/24 09:07 HPI - Anesthesia Eval Consult details Narrative: 74yo F for Upper Endoscopy and Colonoscopy [place]s [facility] [place]. Last visit 11/2023 - asthma stable, chronic upper respiratory cough, CPAP setting adjusted Follows [facility] [place] cardiology. Last visit 02/2024 - stable, venous stasis PMFSH Active Problems Active Problems: All Active Problems (Updated 04/12/24 @ 09:54 by Dank Garrison MD) Breast lump on left side at 11 o'clock position (Acute) Venous stasis of both lower extremities (Acute) Right-sided lacunar infarction (Acute) Cricopharyngeal achalasia (Acute) Change in bowel habit (Acute) Osteoarthritis of left shoulder (Acute) Mild neurocognitive disorder (Acute) OAB (overactive bladder) (Acute) Sacroiliac joint dysfunction of right side (Acute) Trochanteric bursitis, right hip (Acute) Trigger finger, left (Acute) Degenerative joint disease of acromioclavicular joint (Acute) Right shoulder pain (Acute) Lower urinary tract symptoms (Acute) Degenerative joint disease, foot, left (Acute) Right leg pain (Acute) Bilateral hand pain (Acute) Discoloration of skin (Acute) Bunion (Acute) Osteopenia (Acute) Adult general medical exam (Acute) RUQ pain (Acute) Fatigue (Acute) Cognitive dysfunction (Acute) Mixed incontinence urge and stress (Acute) Urinary incontinence (Acute) GERD (gastroesophageal reflux disease) (Acute) Forgetfulness (Acute) Ankle swelling (Acute) Aortic stenosis (Acute) Rash and nonspecific skin eruption (Acute) Precordial chest pain (Acute) Intermittent chest pain (Acute) Hyperlipidemia (Acute) History of COVID-19 (Acute) DM type 2 (diabetes mellitus, type 2) (Acute) Essential hypertension (Acute) Type 2 diabetes mellitus (Acute) History of colonoscopy (Acute ~03/12/20) Hypothyroidism (Acute) Chronic cough (Acute) Non-rheumatic aortic stenosis (Acute) History of neuropathy (Acute) Chronic ankle pain (Acute) Chronic allergic rhinitis (Acute) Asthma-COPD overlap syndrome (Acute) ALISA (obstructive sleep apnea) (Acute) Asthma (Acute) Past Medical History Medical History Elevated cholesterol HTN (hypertension) Type 2 diabetes mellitus Cognitive dysfunction GERD (gastroesophageal reflux disease) Osteopenia Hypothyroid Chronic cough History of neuropathy Chronic ankle pain Non-rheumatic aortic stenosis Pleuritic chest pain Chronic allergic rhinitis Hypothyroidism Asthma-COPD overlap syndrome ALISA (obstructive sleep apnea) Asthma Family History Family History Father Diabetes HTN (hypertension) Heart disease Mother Diabetes HTN (hypertension) Other Asthma Surgical History Surgical History Hx of cystoscopy History of colonoscopy (~03/12/20) History of surgery on lower extremity History of back surgery History of thyroid surgery History of Problems with Anesthesia: No Social History Social History Household Members: None Housing: Apartment Alcohol intake: former Patient Tobacco Use Status: Former Tobacco user Tobacco use type: Cigarette Years Smoked: 10 years e-Cigarette/Vaping Use: Never Used Second Hand Smoke Exposure: Yes Have you been hit, kicked, punched, or otherwise hurt by someone within the past year? If so, by whom?: No Are you DNR?: No Advance Directives: No Advance Directives Information Provided: Yes Nutrition Risks: No Nutritional Risk service: No Current occupational status: disabled Current occupational exposures/hazards: No Cognitive needs: Yes (cane) Hearing needs: No Vision needs: Yes Meds Allergies Allergy/AdvReac Type Severity Reaction Status Date / Time regadenoson [From Lexiscan] AdvReac Intermediate Chest Pain Verified 04/12/24 09:51 Home Medications ?Medication ?Instructions ?Recorded ?Confirmed ?Last Taken ?Type nebulizers 11/11/21 04/12/24 Unknown History Saccharomyces boulardii 250 mg 5,000 mmu cells PO DAILY 04/06/22 04/12/24 Unknown History capsule (Daily Probiotic (S. boulardii)) ascorbic acid (vitamin C) 500 mg 500 mg PO DAILY 04/06/22 04/12/24 Unknown History capsule ibuprofen 600 mg tablet 600 mg PO Q6H PRN Pain 04/06/22 04/12/24 09/08/23 History tumeric 1 tab PO DAILY 07/06/22 04/12/24 Unknown History cholecalciferol (vitamin D3) 25 25 mcg PO DAILY 10/10/22 04/12/24 Unknown History mcg (1,000 unit) capsule sertraline 100 mg tablet 50 mg PO DAILY 12/21/22 04/12/24 Unknown History CPAP (CPAP Machine/Device) 12/01/23 04/12/24 Unknown History Exam Height,Weight and Vital Signs: Height 5 ft 3 in Weight 72.121 kg Pertinent Lab Results Pertinent Lab Results: Laboratory Tests 12/11/23 12:14 WBC 9.9 Hgb 13.0 Hct 41.2 Plt Count 271 Sodium 142 Potassium 4.1 Chloride 108 Carbon Dioxide 27 BUN 21 H Creatinine 0.81 Narrative Narrative: ECHO 11/2023 Conclusions: - 1. Normal LV ejection fraction 55-60% with impaired relaxation filling pattern 2. At least mildly dilated left atrium 3. Early mild aortic stenosis 4. Normal RV systolic pressure 5. No gross pericardial effusion EKG 07/2023 Vent. Rate : 070 BPM Atrial Rate : 070 BPM P-R Int : 126 ms QRS Dur : 088 ms QT Int : 406 ms P-R-T Axes : 067 -11 096 degrees QTc Int : 438 ms Normal sinus rhythm Minimal voltage criteria for LVH, may be normal variant ( R in aVL ) Nonspecific T wave abnormality Abnormal ECG When compared with ECG of 16-MAR-2021 15:26, No significant change was found NM cardiolite stress test 11/2022 Impression: 1. Myocardial perfusion imaging study shows probably normal myocardial perfusion. 2. Gated LVEF is 66% during stress and 53% during rest. 3. Transient ischemic dilatation not present. Assessment and Plan Assessment Anesthesia Assessment: Chart Reviewed Final Anesthetic Review History of Problems with Anesthesia: No Documented by User: Steffi Aguilera MD 04/16/24 08:01 [facility] Active Problems Active Problems: All Active Problems (Updated 04/12/24 @ 09:54 by Dank Garrison MD) Breast lump on left side at 11 o'clock position (Acute) Venous stasis of both lower extremities (Acute) Right-sided lacunar infarction (Acute) Cricopharyngeal achalasia (Acute) Change in bowel habit (Acute) Osteoarthritis of left shoulder (Acute) Mild neurocognitive disorder (Acute) OAB (overactive bladder) (Acute) Sacroiliac joint dysfunction of right side (Acute) Trochanteric bursitis, right hip (Acute) Trigger finger, left (Acute) Degenerative joint disease of acromioclavicular joint (Acute) Right shoulder pain (Acute) Lower urinary tract symptoms (Acute) Degenerative joint disease, foot, left (Acute) Right leg pain (Acute) Bilateral hand pain (Acute) Discoloration of skin (Acute) Bunion (Acute) Osteopenia (Acute) Adult general medical exam (Acute) RUQ pain (Acute) Fatigue (Acute) Cognitive dysfunction (Acute) Mixed incontinence urge and stress (Acute) Urinary incontinence (Acute) GERD (gastroesophageal reflux disease) (Acute) Forgetfulness (Acute) Ankle swelling (Acute) Aortic stenosis (Acute) Rash and nonspecific skin eruption (Acute) Precordial chest pain (Acute) Intermittent chest pain (Acute) Hyperlipidemia (Acute) History of COVID-19 (Acute) DM type 2 (diabetes mellitus, type 2) (Acute) Essential hypertension (Acute) Type 2 diabetes mellitus (Acute) History of colonoscopy (Acute ~03/12/20) Hypothyroidism (Acute) Chronic cough (Acute) Non-rheumatic aortic stenosis (Acute) History of neuropathy (Acute) Chronic ankle pain (Acute) Chronic allergic rhinitis (Acute) Asthma-COPD overlap syndrome (Acute) ALISA (obstructive sleep apnea) (Acute). Uses CPAP intermittently Asthma (Acute) Past Medical History Medical History Elevated cholesterol HTN (hypertension) Type 2 diabetes mellitus Cognitive dysfunction GERD (gastroesophageal reflux disease) Osteopenia Hypothyroid Chronic cough History of neuropathy Chronic ankle pain Non-rheumatic aortic stenosis Pleuritic chest pain Chronic allergic rhinitis Hypothyroidism Asthma-COPD overlap syndrome ALISA (obstructive sleep apnea) Asthma Family History Family History Father Diabetes HTN (hypertension) Heart disease Mother Diabetes HTN (hypertension) Other Asthma Family history of problems with anesthesia: No Surgical History Surgical History Hx of cystoscopy History of colonoscopy (~03/12/20) History of surgery on lower extremity History of back surgery History of thyroid surgery History of Problems with Anesthesia: No Social History Social History Household Members: None Housing: Apartment Alcohol intake: former Patient Tobacco Use Status: Former Tobacco user Tobacco use type: Cigarette Years Smoked: 10 years e-Cigarette/Vaping Use: Never Used Second Hand Smoke Exposure: Yes Have you been hit, kicked, punched, or otherwise hurt by someone within the past year? If so, by whom?: No Are you DNR?: No Advance Directives: No Advance Directives Information Provided: Yes Nutrition Risks: No Nutritional Risk service: No Current occupational status: disabled Current occupational exposures/hazards: No Cognitive needs: Yes (cane) Hearing needs: No Vision needs: Yes Meds Allergies Allergy/AdvReac Type Severity Reaction Status Date / Time regadenoson [From RESPACE] AdvReac Intermediate Chest Pain Verified 04/12/24 09:51 Home Medications ?Medication ?Instructions ?Recorded ?Confirmed ?Last Taken ?Type nebulizers 11/11/21 04/12/24 Unknown History Saccharomyces boulardii 250 mg 5,000 mmu cells PO DAILY 04/06/22 04/12/24 Unknown History capsule (Daily Probiotic (S. boulardii)) ascorbic acid (vitamin C) 500 mg 500 mg PO DAILY 04/06/22 04/12/24 Unknown History capsule ibuprofen 600 mg tablet 600 mg PO Q6H PRN Pain 04/06/22 04/12/24 09/08/23 History tumeric 1 tab PO DAILY 07/06/22 04/12/24 Unknown History cholecalciferol (vitamin D3) 25 25 mcg PO DAILY 10/10/22 04/12/24 Unknown History mcg (1,000 unit) capsule sertraline 100 mg tablet 50 mg PO DAILY 12/21/22 04/12/24 Unknown History CPAP (CPAP Machine/Device) 12/01/23 04/12/24 Unknown History Exam Height,Weight and Vital Signs: Height 5 ft 3 in Weight 72.121 kg Vital Signs Temp Pulse Resp BP Pulse Ox O2 Del Method 04/16/24 07:46 98 F 70 20 142/53 H 96 Room Air Airway Mallampati Class: II TM Dist: >3cm Neck ROM: Full Partial: Upper and Lower Loose/Missing/Broken Teeth: Yes (Denies broken or loose teeth) Heart: RRR Lungs: CTAB Assessment and Plan Assessment Anesthesia Assessment: Anesthesia Plan Discussed and Chart Reviewed Final Anesthetic Review Family History of Problems with Anesthesia: No History of Problems with Anesthesia: No NPO: Yes ASA Class: III Final Preanesthetic Review: No Changes in Pt Med Stat, Meds/Allgs Chart Reviewed, Consent Obtained/Reviewed and Anes Risks/Benef Reviewed Patient Risk: Intermediate Procedure Risk: Low Assessment/Block/Sedation in SS: Assess/Block/Sedation-SS Anesthetic Plan Anesthetic Plan: TIVA Disposition: Standard PACU
[2024-04-16 07:46] VITALS: BP 142/53; PULSE 70; RESP 20; TEMP 36.6; O2SAT 96; BMI 28.6
[2024-04-16 07:50] LABS: Glucose, Whole Blood 112 mg/dL (60-115)
--- NOTE | 2024-04-16 07:53 | MHC.SHP ---
Pre-Procedural Eval Section A - 24 Hr Update-Section A only Date of Service: 04/16/24 Section B - Complete if H&P > 30 days Chief Complaint: abnormal barium XR, change in bowel habits, wt los Present Medications: see Short Stay Collaborative assessment Allergies: Allergies Allergy/AdvReac Type Severity Reaction Status Date / Time regadenoson [From Lexiscan] AdvReac Intermediate Chest Pain Verified 04/12/24 09:51 Review of Systems Review of Systems Comment: 10 point ROS negative Exam Exam Comment: Gen appear: No acute distress HEENT: no icterus Chest: No overt resp distress Abd: soft, nontender, nondistended Psych: Stable affect, answering questions appropriately Neuro: A/Ox3 noted to move all extremities spontaneously Ext: no peripheral edema Plan Diagnosis/Plan: Unchanged I have reviewed the history and physical and performed a pertinent physical examination on my patient. No changes have occurred unless specified. Time Spent With Patient Time: Total time managing care of this patient today ____ minutes.
[2024-04-16] MEDS: Lactated Ringers 1,000 ML 100 ML IVCONT (08:12)
--- NOTE | 2024-04-16 10:00 | P.OPN-COLO_ITS ---
Colonoscopy Operative Note Operative Note Date of Service: 04/16/24 Narrative: Procedure: Upper endoscopy and colonoscopy Indication: Abnormal barium swallow, change in bowel habits, unintentional weight loss Endoscopist: Mary Naik MD Anesthesia Provider: Dr Steffi Aguilera Anesthesia type: MAC Instrument: [id number]-H190 and [id number]-[id number] EGD Procedure:?? The procedure, indications, preparation and potential complications were reviewed with the patient with the help of embroidery specialist, who indicated understanding and gave written informed consent to proceed. The endoscope was introduced through the mouth, and advanced to the 2nd part of the duodenum. The mucosa was carefully examined on slow withdrawal of the endoscope. The patient tolerated the procedure well. There were no immediate complications.? EGD Findings:? * Esophagus:? Focal area of heterotopic gastric mucosa noted in the upper esophagus. The Z-line was at 36 cm and irregular up to 34 cm. Cold forceps biopsies were taken from GE junction to rule out Pastrana's esophagus. A small hiatal hernia was noted. * Stomach:? Normal gastric mucosa. A few scattered polyps ranging from 2-10 mm in size in the fundus. Cold forceps biopsy was performed for the larger ones. Retroflexion was performed in the cardia. Random cold forceps biopsies were taken from the stomach. * Duodenum:?A 5 mm duodenal polyp noted in second portion of the duodenum. Cold forceps polypectomy was performed. Normal duodenal mucosa otherwise. Cold forceps biopsies were taken from the duodenal bulb and 2nd portion of the duodenum to rule out celiac sprue. Additional intervention: Soft tip Savary wire was introduced through the biopsy channel of the gastroscope and advanced to the antrum. ?The gastroscope was then backed out. ?Savary Tomás bougie was advanced over the guidewire and the esophagus was dilated to 19 mm with resistance felt. ?On relook, small tear was noted at th elevel of cricopharyngeus indicating successful dilation. ? Colonoscopy Procedure:? The patient was then turned for the colonoscopy. A digital rectal exam was performed which was normal.? A distal attachment cap was affixed to the tip of the scope and the colonoscope was then inserted through the anus and advanced through the colon and advanced to the cecum at 85 cm and terminal ileum.? Appendiceal orifice and ileocecal valve were identified. Mucosa was carefully examined under high definition white light as the instrument was slowly withdrawn in a retrograde panoramic fashion. Retroflexion was performed in rectum. The procedure was not difficult. The quality of the prep was BBPS: 3+2+2 = adequate Withdrawal time 10 minutes Limitations: No limitations Findings: Mucosa: Normal colon and terminal ileum mucosa. Cold forceps biopsies were taken from the right and left side of the colon. Protruding lesions: * 1 sessile polyp of size 2 mm in ascending colon. Cold forceps polypectomy was performed. The polyp was completely removed and retrieved. * 1 sessile polyp of size 2 mm in descending colon. Cold forceps polypectomy was performed. The polyp was completely removed and retrieved. * Large internal hemorrhoids without stigmata of recent bleeding. Excavated lesions: * Diffuse diverticulosis of whole colon L >R. Impression: 1. Inlet patch 2. Cricopharyngeal stenosis (dilation) 3. Irregular SCM - r/o pastrana's (biopsy) 4. Hiatal hernia 5. Gastric polyps 6. Duodenal polyp 7. Normal colon and terminal ileum mucosa (biopsy) 8. Total of 2 polyps removed from the colon 9. Diverticulosis 10. Internal hemorrhoids Recommendations:?? * Follow-up path results * Avoid NSAIDs * H Pylori treatment if biopsies + * Remaining work up for unintentional weight loss as per PCP * If swallowing improves, EGD can be repeated as needed for recurrence of dysphagia * Repeat colonoscopy for CRC screening in 7-10 years is optional, if patient in good health.
[2024-04-16 10:04] VITALS: BP 111/58; PULSE 62; RESP 12; TEMP 36.1; O2SAT 97
[2024-04-16 10:20] VITALS: BP 136/74; PULSE 66; RESP 16; O2SAT 96
[2024-04-16 10:35] VITALS: BP 146/68; PULSE 64; RESP 16; TEMP 36.2; O2SAT 97
== END 2024-04-16 11:11 | disposition home or self-care (01) ==
PROVIDERS: PCP Internal Medicine; Visit Provider Internal Medicine
PROC: (CPT 45380; principal; 2024-04-16 09:00)
DX: K57.30 Diverticulosis of large intestine without perforation or abscess without bleeding (principal); K64.8 Other hemorrhoids; Q39.8 Other congenital malformations of esophagus; K22.0 Achalasia of cardia; R19.4 Change in bowel habit; K31.7 Polyp of stomach and duodenum; K22.9 Disease of esophagus, unspecified; K29.60 Other gastritis without bleeding; K44.9 Diaphragmatic hernia without obstruction or gangrene; K21.9 Gastro-esophageal reflux disease without esophagitis; D12.2 Benign neoplasm of ascending colon; R63.4 Abnormal weight loss; Z68.27 Body mass index [BMI] 27.0-27.9, adult; K63.4 Enteroptosis
CPT/HCPCS: 45380; 43248; 43239; 82947; 88305; 88313; 88342; C1769; J1596; J2003; J2704

== ENCOUNTER → 2024-04-16 07:16 | Outpatient (BNV) | payer OTHER, SELFPAY | PROVIDERS: PCP Internal Medicine; Visit Provider Internal Medicine | DX: R19.4 Change in bowel habit (principal); K31.7 Polyp of stomach and duodenum; R63.4 Abnormal weight loss; K63.5 Polyp of colon; K57.90 Diverticulosis of intestine, part unspecified, without perforation or abscess without bleeding; K64.8 Other hemorrhoids; J39.2 Other diseases of pharynx | CPT/HCPCS: 43239; 43248; 45380 ==

== ENCOUNTER 2024-04-29 11:39 | Outpatient (AMB) | payer OTHER, SELFPAY ==
--- NOTE | 2024-04-29 11:45 | A.OFFVIS_ITS ---
Vital Signs 04/29/24 11:50 04/29/24 12:45 Height 5 ft 3 in Weight 158 lb 11.725 oz BMI 28.1 BP 114/43 L 120/60 Blood Pressure Location Lt brachial Lt brachial Position Sitting Sitting Pulse 63 Intake Visit Reasons: s/p egd/colon Intake Note: Joanna presents in the office as a f/u EGD and COLO. CC: She is here today for the results of her procedures. BP is low - she states she has been very tired. She states that after her procedures she has been tired - first 3 BMs were very bloody and black so that was concerning to her. She said she called to let the office know how she was feeling. Her throat was hurting as well. She states that she took a medication that made her very dizzy but she was not sure as to which medication that it is. She does state she takes pantoprazole. Sexual Assault Counselor Required: Yes Sexual Assault Counselor Name: [id number] Devora Allergies regadenoson [From Mendor] Adverse Reaction (Intermediate, Verified 04/12/24 09:51) Chest Pain HPI Comments Details: 73 y.o F who is here for change in bowel habits. Reports x 6 months ago started noticing rectal pressure assoc with BMs fluctuating between constipation and diarrhea. Has also been noticing blood PA rashawn on straining. When has diarrhea, has up to 5 BMs per day which are watery and explosive. When constipated passes around 2-3 BMs per week. Used to take stool softeners. Pt also reports weight loss of almost 10 lbs in the past 4-5 months unintentionally. Appetite is good. Pt also reports significant reflux and regurgitation. Sees pulm who ordered barium swallow for chronic cough which showed possible cricopharyngeal narrowing as well as severe reflux. She is on PPI therapy x 10 years. Last colo was 2020 (Dr Xiong)- fair prep, no polyps. 04/16/24 EGD/colo 1. Inlet patch 2. Cricopharyngeal stenosis (dilation) 3. Irregular SCM - r/o pastrana's (biopsy) 4. Hiatal hernia 5. Gastric polyps 6. Duodenal polyp 7. Normal colon and terminal ileum mucosa (biopsy) 8. Total of 2 polyps removed from the colon 9. Diverticulosis 10. Internal hemorrhoids A. Duodenal polyp: Duodenal mucosa with preserved villi and features of chronic/non-specific duodenitis; no adenomatous dysplasia present. B. Duodenal polyp: Duodenal mucosa with chronic/non-specific duodenitis and Juana's gland hyperplasia; no adenomatous dysplasia seen. C. Gastric polyps: Fundic gland polyps with minimal chronic inactive inflammation; negative for H. pylori, intestinal metaplasia and dysplasia. D. Stomach, random, biopsy: Gastric antral and body mucosa with reactive changes and minimal chronic inactive gastritis; negative for H. pylori, intestinal metaplasia and dysplasia. E. Gastroesophageal junction, biopsy: Squamocolumnar mucosa with mild chronic inflammation; negative for intestinal metaplasia and dysplasia. F. Colon, right, biopsy: Colonic mucosa with no specific change; no evidence of microscopic colitis. G. Colon, ascending, polyp: Tubular adenoma, completely excised; negative for high-grade dysplasia and carcinoma. H. Colon, left, biopsy: Colonic mucosa with minor crypt distortion, otherwise no specific change; no evidence of microscopic colitis. I. Colon, descending, polyp: Hyperplastic polyp. 04/29/24: Online director learning services: [id number] Here for post procedure follow up. Reports improvement in globus sensation and swallowing. REsults of hte biopsies reviewed - no H Pylori. No small or large bowel inflammation. Pt reports feeling lightheaded on and off for the past week. BP soft today. Reviewed that likely unrelated to procedures from last month. May need adjustment of BP meds for which she should call PCP office. [facility] Medical History Elevated cholesterol HTN (hypertension) Type 2 diabetes mellitus Cognitive dysfunction GERD (gastroesophageal reflux disease) Osteopenia Hypothyroid Chronic cough History of neuropathy Chronic ankle pain Non-rheumatic aortic stenosis Pleuritic chest pain Chronic allergic rhinitis Hypothyroidism Asthma-COPD overlap syndrome ALISA (obstructive sleep apnea) Asthma Surgical History (Updated 04/29/24 @ 11:50 by USHAS Brooke) History of esophagogastroduodenoscopy (EGD) History of colonoscopy with polypectomy (04/16/24) Hx of cystoscopy History of colonoscopy (~03/12/20) History of surgery on lower extremity History of back surgery History of thyroid surgery Family History Father Diabetes HTN (hypertension) Heart disease Mother Diabetes HTN (hypertension) Other Asthma Social History Household Members: None Housing: Apartment Alcohol intake: former Patient Tobacco Use Status: Former Tobacco user Tobacco use type: Cigarette Years Smoked: 10 years e-Cigarette/Vaping Use: Never Used Second Hand Smoke Exposure: Yes service: No Current occupational status: disabled Current occupational exposures/hazards: No Cognitive needs: Yes (cane) Hearing needs: No Vision needs: Yes Review of Systems Const All systems reviewed & are unremarkable except as noted in HPI and below Physical Exam Vital Signs: Last Vital Signs Pulse 63 04/29/24 11:50 BP 114/43 L 04/29/24 11:50 BMI result Body Mass Index 28.1 No apparent distress Nonicteric Abdomen soft, nondistended Alert and oriented x3, normal gait Assessment & Plan Assessment & Plan (1) Change in bowel habit: Code(s): R19.4 - Change in bowel habit Category: Medical (2) Cricopharyngeal achalasia: Code(s): K22.0 - Achalasia of cardia Category: Medical (3) GERD (gastroesophageal reflux disease): Code(s): K21.9 - Gastro-esophageal reflux disease without esophagitis Category: Medical Qualifiers: Esophagitis presence: without esophagitis Qualified Code(s): K21.9 - Gastro-esophageal reflux disease without esophagitis Plan 1. CHange in bowel habits: Reassured no colitis or malignancy noted on exam last month. x1 tubular adenoma - colo in 10 years optional if pt in good health. 2. Cricopharyngeal narrowing: Reports good response post dilation. Advised to call office PRN for recurrence of sx. 3. Lightheadedness/hypotension Pt reports intermittent lightheadedness x past week. Initial BP noted low but manual repeat was 120/60. Advised to call PCP for further eval and adjustment in meds as needed. Follow up PRN Medications: Refilled sennosides (Natural Senna Laxative) 17.2 mg (2 x 8.6 mg) PO DAILY 90 days 180 tabs 1RF Coding Level of Care Code Est Pt Level 4 (52533) Diagnoses Change in bowel habit R19.4 Cricopharyngeal achalasia K22.0 Gastroesophageal reflux disease without esophagitis K21.9 Esophagitis presence: without esophagitis
[2024-04-29 11:50] VITALS: BP 114/43; PULSE 63; BMI 28.1
[2024-04-29 12:45] VITALS: BP 120/60
--- OUTSIDE RECORDS SUMMARY | 2024-04-29 13:18 | XMS_ITS | Encounter Summary ---
Author Organization [facility] Address [address] [place] [address] Care Team Providers Care Scrubber System Attendant Name Role Phone Robinson Howe MD Primary Care Provider + [phone] Jesus Monterroso MD Primary Care Provider Abram Flores MD Primary Care Provider Unavailab Michael Duvall MD Primary Care Provider Driss nguyen [facility], Pcp Primary Care Provider Unavailabl Napoleon Ramirez Primary Care Provider [phone] [facility], Pcp Primary Care Provider Unavailabl e Reason for Visit * Reason Onset Date Comments Faxed Order 06/10/2015 Encounter Details Date Type Department Care Team Description 06/10/2015 Telephone Adult [address] [address] Robinson Howe MD [address] [place] [address] [phone] Faxed Order Social History Tobacco Use Types [...] encounter Miscellaneous Notes * Telephone Encounter - Yesenia Franco - 06/10/2015 3:08 PM EDT Faxed orders from caregiver homes sent to to sign documented in this encounter Plan of Treatment Not on file documented as of this encounter Visit Diagnoses Not on filedocumented in this encounter Care Teams Scrubber System Attendant Relationship Specialty Start Date End Date Robinson Howe MD [address] [place] [address] PCP - General Internal Medicine 11/03/14 04/13/20 Jesus Monterroso MD [address] [place] [address] PCP - General Internal Medicine 04/14/20 07/05/20 Abram Gardner MD [address] [place] [address] PCP - General Internal Medicine 07/06/20 12/24/20 Michael Gillette MD [address] [place] [address] PCP - General Internal Medicine 12/25/20 06/28/21 [facility], Pcp [address] [place] [address] PCP - General Internal Medicine 06/29/21 11/14/21 Napoleon Linda [address] [place] [address] PCP - General Internal Medicine 11/15/21 04/20/22 [facility], Pcp [address] [place] [address] PCP - General Internal Medicine 04/21/22 documented as of this encounter
--- OUTSIDE RECORDS SUMMARY | 2024-04-29 13:18 | XMS_ITS | Encounter Summary ---
Author Organization [facility] Address [address] [place] [address] Care Team Providers Care Thermal Spray Operator Name Role Phone Robinson Howe MD Primary Care Provider + [phone] Jesus Monterroso MD Primary Care Provider Abram Flores MD Primary Care Provider Unavailab Michael Duvall MD Primary Care Provider Driss nguyen [facility], Pcp Primary Care Provider Unavailabl e Napoleon Linda Primary Care Provider [phone] [facility], Pcp Primary Care Provider Unavailabl e Reason for Referral * Non JERED (Routine) - Authorized/Booked Specialty Diagnoses / Procedures Referred By Contac t Referred To Contact Pulmonology Diagnoses Mild intermittent asthma, unspecified whether complicated Procedures REFERRAL TO PULMONOLOGY Robinson Howe MD [address] [place] [address] Pulmo/[place] [address] [address] Referral ID Status Reason Start Date Expiration Date V isits Requested Visits Authorized [id number] Authorized/B ooked 01/01/2018 01/01/2019 1 1 Reason for Visit * Reason Onset Date Comments Arboriculture Teacher Feedback 12/29/2017 pulmo Encounter Details Date Type Department Care Team Description 12/29/2017 Telephone Adult Medicine [facility] [address] [place] [address] Robinson Howe MD [address] [place] [address] Arboriculture Teacher Feedback (pulmo) Social History Tobacco Use Types Packs/Day Years [...] encounter Miscellaneous Notes * Telephone Encounter - Jacque [place] - 01/01/2018 1:15 PM EST Please review this patients new referral request. The referral has been pended. Please complete thefollowing: If approved> sign order If denied>please give instructions and route to your practice nursing pool. Practice nurse should inform referrals and the patient if denied. * Telephone Encounter - Sandi Zazueta - 01/01/2018 12:52 PM EST Request for a referral to a [facility]ist for a patient with a [facility] PCP. If patient does NOT have a [facility] PCP they must obtain a referral from their PCP before being seen-do not submit request to Referrals department-contact patient. Last GORDON and Carlos GORDON should not see patients with community PCP's as they are not billed as specialists. Specialty patient is being referred to: pulmonary Name of Specialist patient is seeing: Terrence Grier Reason/diagnosis for visit: Asthma Date of appoinment: n/a If retro, date referral needs to start: n/a Robinson Howe [facility] M[facility] / Plan: HMO $0 [place] [id number] / Product Type: HMO [id number] * Telephone Encounter - Darling Valerie - 12/29/2017 11:49 AM EST Please complete the proper smart text * Telephone Encounter - Sandi Zazueta - 12/29/2017 11:06 AM EST Patient would like a referral to pulmonary due to asthma, requesting to see providers at [address] [place] [address]. Please advise. documented in this encounter Plan of Treatment Not on file documented as of this encounter Visit Diagnoses Diagnosis Mild intermittent asthma, unspecified whether complicated- Primary documented in this encounter Care Teams Thermal Spray Operator Relationship Specialty Start Date End Date Robinson Howe MD [address] [place] [address] PCP - General Internal Medicine 11/03/14 04/13/20 Jesus Monterroso MD [address] [place] [address] PCP - General Internal Medicine 04/14/20 07/05/20 Abram Gardner MD [address] [place] [address] PCP - General Internal Medicine 07/06/20 12/24/20 Michael Gillette MD [address] [place] [address] PCP - General Internal Medicine 12/25/20 06/28/21 [facility], Pcp [address] [place] [address] PCP - General Internal Medicine 06/29/21 11/14/21 Napoleon Linda [address] [place] [address] PCP - General Internal Medicine 11/15/21 04/20/22 [facility], Pcp [address] [place] [address] PCP - General Internal Medicine 04/21/22 documented as of this encounter
--- OUTSIDE RECORDS SUMMARY | 2024-04-29 13:18 | XMS_ITS | Encounter Summary ---
Author Organization [employer] Address [address] [place] [address] [address] [place] [address] Care Team Providers Care Re Recording Mixer Name Role Phone Unavailable Primary Care Provider Unavailabl e Encounter Details Date Type Department Care Team (Late st Contact Info) Description 01/26/2022 Abstract [facility] [address] [place] [address] Dental, Provider, DDS Social History Tobacco Use [...] Description 09/13/2024 3:00 PM EDT Office Visit [facility] [address], [place] [phone] Dougals Baltazararis [address], [place] [phone] documented as of this encounter Procedures Procedure [...]
--- OUTSIDE RECORDS SUMMARY | 2024-04-29 13:18 | XMS_ITS | Encounter Summary ---
Author Organization [facility] Address [address] [place] [address] Care Team Providers Care Stenographer Print Shop Name Role Phone Robinson Howe MD Primary Care Provider + [phone] Jesus Monterroso MD Primary Care Provider Abram Flores MD Primary Care Provider Michael Hinojosa MD Primary Care Provider Driss nguyen [facility], Pcp Primary Care Provider Napoleon Mejia Primary Care Provider [phone] [facility], Pcp Primary Care Provider Maria T grace Encounter Details Date Type Department Care Team Description 10/30/2015 Business Doc Medical Records [address] [place] [address] Abstract, Provider Social History Tobacco Use Types [...] on filedocumented in this encounter Care Teams Stenographer Print Shop Relationship Specialty Start Date End Date Robinson Howe MD [address] [place] [address] PCP - General Internal Medicine 11/03/14 04/13/20 Jesus Monterroso MD [address] [place] [address] PCP - General Internal Medicine 04/14/20 07/05/20 Abram Gardner MD [address] [place] [address] PCP - General Internal Medicine 07/06/20 12/24/20 Michael Gillette MD [address] [place] [address] PCP - General Internal Medicine 12/25/20 06/28/21 [facility], Pcp [address] [place], [place] [phone] PCP - General Internal Medicine 06/29/21 11/14/21 Napoleon Linda [address] [place] [address] PCP - General Internal Medicine 11/15/21 04/20/22 [facility], Pcp [address] [place] [address] PCP - General Internal Medicine 04/21/22 documented as of this encounter
--- OUTSIDE RECORDS SUMMARY | 2024-04-29 13:18 | XMS_ITS | Encounter Summary ---
Author Organization [employer] Address [address] [place] [address] [address] [place] [address] Care Team Providers Care Manual Arts Teacher Name Role Phone Unavailable Primary Care Provider Unavailabl e Encounter Details Date Type Department Care Team (Latest Contact Info) Description 04/05/2018 Abstract [facility] CONVERSION[facility] Dental, Provider, DDS Social History [...] Description 09/13/2024 3:00 PM EDT Office Visit [facility] [address] [place] [address] Delaney, Madeline [address] [place] [address] documented as of this encounter Visit Diagnoses Not on filedocumented in this encounter
--- OUTSIDE RECORDS SUMMARY | 2024-04-29 13:18 | XMS_ITS | Encounter Summary ---
Author Organization [facility] Address [address] [place] [address] Care Team Providers Care Weather Forcaster Name Role Phone Robinson Howe MD Primary Care Provider + [phone] Jesus Monterroso MD Primary Care Provider Abram Flores MD Primary Care Provider Unavailab Michael Duvall MD Primary Care Provider Driss nguyen [facility], Pcp Primary Care Provider Unavailabl Napoleon Ramirez Primary Care Provider [phone] [facility], Pcp Primary Care Provider Unavailabl e Reason for Visit * Reason Onset Date Comments Faxed Refill 12/10/2019 Encounter Details Date Type Department Care Team Description 12/10/2019 Refill Adult Medicine [address] [phone] Robinson Howe MD [address] [place] [address] [phone] Faxed Refill Social History Tobacco Use Types [...] N/A Patients current insurance carrier is: Payor: [facility] MCR / Plan: HMO $0 [facility] [id number] / Product Type: HMO [id number] documented in this encounter Plan of Treatment Not on file documented as of this encounter Visit Diagnoses Not on filedocumented in this encounter Care Teams Weather Forcaster Relationship Specialty Start Date End Date Robinson Howe MD [address] [place] [address] PCP - General Internal Medicine 11/03/14 04/13/20 Jesus Monterroso MD [address] [place] [address] PCP - General Internal Medicine 04/14/20 07/05/20 Abram Gardner MD [address] [place] [address] PCP - General Internal Medicine 07/06/20 12/24/20 Michael Gillette MD [address] [place], [place] [phone] PCP - General Internal Medicine 12/25/20 06/28/21 [facility], Pcp [address] [place] [address] PCP - General Internal Medicine 06/29/21 11/14/21 Napoleon Linda [address] [place] [address] PCP - General Internal Medicine 11/15/21 04/20/22 [facility], Pcp [address] [place] [address] PCP - General Internal Medicine 04/21/22 documented as of this encounter
--- OUTSIDE RECORDS SUMMARY | 2024-04-29 13:18 | XMS_ITS | Encounter Summary ---
Author Organization [employer] Address [address] [place] [address] 7t [place] [address] Care Team Providers Care Surveyor'S Assistant Name Role Phone Unavailable Primary Care Provider Unavailabl e Encounter Details Date Type Department Care Team (Latest Contact Info) Description 12/24/2021 Abstract [facility] CONVERSIONS Dental, Provider, DDS Social [...] Description 09/13/2024 3:00 PM EDT Office Visit [facility] [address] [place] [address] Delaney, Madeline [address] [place] [address] documented as of this encounter Visit Diagnoses Not on filedocumented in this encounter
--- OUTSIDE RECORDS SUMMARY | 2024-04-29 13:18 | XMS_ITS | Encounter Summary ---
Author Organization [facility] Address [address] [place] [address] Care Team Providers Care Head Transfer Clerk Name Role Phone Robinson Howe MD Primary Care Provider + [phone] Jesus Monterroso MD Primary Care Provider Abram Flores MD Primary Care Provider UnavailMichael Elmore MD Primary Care Provider Driss nguyen [facility], Pcp Primary Care Provider UnavailNapoleon White Primary Care Provider [phone] [facility], Pcp Primary Care Provider Maria T grace Encounter Details Date Type Department Care Team Description 12/02/2019 Orders Only Adult Medicine [address] [address] Jordan Soto, DAINA Cough (Primary Dx) Social History Tobacco Use Types [...] as of this encounter Visit Diagnoses Diagnosis Cough- Primary documented in this encounter Care Teams Head Transfer Clerk Relationship Specialty Start Date End Date Robinson Howe MD [address] [place] [address] PCP - General Internal Medicine 11/03/14 04/13/20 Jesus Monterroso MD [address] [place] [address] PCP - General Internal Medicine 04/14/20 07/05/20 Abram Gardner MD [address] [place] [address] PCP - General Internal Medicine 07/06/20 12/24/20 Michael Gillette MD [address] [place] [address] PCP - General Internal Medicine 12/25/20 06/28/21 [facility], Pcp [address] [place] [address] PCP - General Internal Medicine 06/29/21 11/14/21 Napoleon Linda [address] [place] [address] PCP - General Internal Medicine 11/15/21 04/20/22 [facility], Pcp [address] [place] [address] PCP - General Internal Medicine 04/21/22 documented as of this encounter
--- OUTSIDE RECORDS SUMMARY | 2024-04-29 13:18 | XMS_ITS | Encounter Summary ---
Author Organization [facility] Address [address] [place] [address] Care Team Providers Care Assembler Trim Name Role Phone Robinson Howe MD Primary Care Provider + [phone] Jesus Monterroso MD Primary Care Provider Abram Flores MD Primary Care Provider Unavailab Michael Duvall MD Primary Care Provider Driss nguyen [facility], Pcp Primary Care Provider Unavailabl Napoleon Ramirez Primary Care Provider [phone] [facility], Pcp Primary Care Provider Unavailabl e Reason for Visit * Reason Onset Date Comments Faxed Order 10/28/2017 [facility] Encounter Details Date Type Department Care Team Description 10/28/2017 Telephone Adult [address] [phone] Robinson Howe MD [address] [place] [address] [phone] Faxed Order ([facility]) Social History Tobacco Use Types Packs/Day Years [...] on filedocumented in this encounter Care Teams Assembler Trim Relationship Specialty Start Date End Date Robinson Howe MD [address] [place] [address] PCP - General Internal Medicine 11/03/14 04/13/20 Jesus Monterroso MD [address] [place] [address] PCP - General Internal Medicine 04/14/20 07/05/20 Abram Gardner MD [address] [place] [address] PCP - General Internal Medicine 07/06/20 12/24/20 Michael Gillette MD [address] [place] [address] PCP - General Internal Medicine 12/25/20 06/28/21 [facility], Pcp [address] [place], [place] [phone] PCP - General Internal Medicine 06/29/21 11/14/21 Napoleon Linda [address] [place], [place] [phone] PCP - General Internal Medicine 11/15/21 04/20/22 [facility], Pcp [address] [place], [place] [phone] PCP - General Internal Medicine 04/21/22 documented as of this encounter
--- OUTSIDE RECORDS SUMMARY | 2024-04-29 13:18 | XMS_ITS | Encounter Summary ---
Author Organization [facility] Address [address] [place] [address] Care Team Providers Care Teaching Supervisor Name Role Phone Robinson Howe MD Primary Care Provider + [phone] Jesus Monterroso MD Primary Care Provider Abram Flores MD Primary Care Provider Michael Hinojosa MD Primary Care Provider Driss nguyen [facility], Pcp Primary Care Provider Napoleon Mejia Primary Care Provider [phone] [facility], Pcp Primary Care Provider Maria T grace Encounter Details Date Type Department Care Team Description 08/08/2017 Business Doc Medical Records [address] [place] [address] Abstract, Provider Social History Tobacco Use Types [...] on filedocumented in this encounter Care Teams Teaching Supervisor Relationship Specialty Start Date End Date Robinson Howe MD [address] [place] [address] PCP - General Internal Medicine 11/03/14 04/13/20 Jesus Monterroso MD [address] [place] [address] PCP - General Internal Medicine 04/14/20 07/05/20 Abram Gardner MD [address] [place] [address] PCP - General Internal Medicine 07/06/20 12/24/20 Michael Gillette MD [address] [place] [address] PCP - General Internal Medicine 12/25/20 06/28/21 [facility], Pcp [address] [place], [place] [phone] PCP - General Internal Medicine 06/29/21 11/14/21 Napoleon Linda [address] [place] [address] PCP - General Internal Medicine 11/15/21 04/20/22 [facility], Pcp [address] [place] [address] PCP - General Internal Medicine 04/21/22 documented as of this encounter
--- OUTSIDE RECORDS SUMMARY | 2024-04-29 13:18 | XMS_ITS | Encounter Summary ---
Author Organization [employer] Address [address] [place] [address] 7t [place] [address] Care Team Providers Care Forestry Pilot Name Role Phone Unavailable Primary Care Provider Unavailabl e Encounter Details Date Type Department Care Team (Latest Contact Info) Description 10/03/2018 Abstract [facility] CONVERSIONS Dental, Provider, DDS Social [...] Description 09/13/2024 3:00 PM EDT Office Visit [facility]ULT [facility] [address] [place] [address] Delaney, Madeline [address] [place] [address] documented as of this encounter Visit Diagnoses Not on filedocumented in this encounter
--- OUTSIDE RECORDS SUMMARY | 2024-04-29 13:18 | XMS_ITS | Encounter Summary ---
Author Organization [facility] Address [address] [place] [address] Care Team Providers Care Paper Coater Name Role Phone Robinson Howe MD Primary Care Provider + [phone] Jesus Monterroso MD Primary Care Provider Abram Flores MD Primary Care Provider Unavailab Michael Duvall MD Primary Care Provider Driss nguyen [facility], Pcp Primary Care Provider UnavailNapoleon White Primary Care Provider [phone] [facility], Pcp Primary Care Provider Unavailguido e Encounter Details Date Type Department Care Team Description 03/03/2020 Refill Gastroenterology - Gregory [address] [facility] [address] [place] [id number] Tien Xiong MD [address] [facility] [address] [place] [address] Social History Tobacco Use Types Packs/Day Years [...] have Coronavirus / COVID-19? No / Unsure 02/25/2020 10:41 AM EST documented as of this encounter Plan of Treatment Not on file documented as of this encounter Visit Diagnoses Not on filedocumented in this encounter Care Teams Paper Coater Relationship Specialty Start Date End Date Robinson Howe MD [address] [place] [address] PCP - General Internal Medicine 11/03/14 04/13/20 Jesus Monterroso MD [address] [place] [address] PCP - General Internal Medicine 04/14/20 07/05/20 Abram Gardner MD [address] [place] [address] PCP - General Internal Medicine 07/06/20 12/24/20 Michael Gillette MD [address] [place] [address] PCP - General Internal Medicine 12/25/20 06/28/21 [facility], Pcp [address] [place] [address] PCP - General Internal Medicine 06/29/21 11/14/21 Napoleon Linda [address] [place] [address] PCP - General Internal Medicine 11/15/21 04/20/22 [facility], Pcp [address] [place] [address] PCP - General Internal Medicine 04/21/22 documented as of this encounter
--- OUTSIDE RECORDS SUMMARY | 2024-04-29 13:18 | XMS_ITS | Encounter Summary ---
Author Organization [employer] Address [address] [place] [address] 7[address] [place] [address] Care Team Providers Care Process Line Operator Name Role Phone Unavailable Primary Care Provider Unavailabl e Encounter Details Date Type Department Care Team (Latest Contact Info) Description 12/24/2021 Abstract [facility] CONVERSIONS Dental, Provider, DDS Social History [...] Description 09/13/2024 3:00 PM EDT Office Visit [facility] [address] [place] [address] Delaney, Madeline [address] [place] [address] documented as of this encounter Visit Diagnoses Not on filedocumented in this encounter
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
--- OUTSIDE RECORDS SUMMARY | 2024-04-29 13:18 | XMS_ITS | Encounter Summary ---
Author Organization [facility] Address [address] [place] [address] Care Team Providers Care Dry Heat Room Attendant Name Role Phone Louisa Machuca MD Primary Care Provider Unavailable Ruddy Cruz MD Primary Care Provider Unavail able Robinson Howe MD Primary Care Provider [phone] Jesus Monterroso MD Primary Care Provider Abram Flores MD Primary Care Provider Unavailab Michael Duvall MD Primary Care Provider Driss nguyen [facility], Pcp Primary Care Provider UnavailNapoleon White Primary Care Provider [phone] [facility], Pcp Primary Care Provider Maria T grace Encounter Details Date Type Department Care Team Description 09/12/2013 Business Doc Medical Records [address] [place] [id number] Abstract, Provider Social History Tobacco Use Types [...] on filedocumented in this encounter Care Teams Dry Heat Room Attendant Relationship Specialty Start Date End Date Louisa Machuca MD PCP - General Internal Medicine 07/17/13 Ruddy Cruz MD PCP - General Internal Medicine 12/19/13 11/02/14 Robinson Howe MD [address] [place] [address] PCP - General Internal Medicine 11/03/14 04/13/20 Jesus Monterroso MD [address] [place] [address] PCP - General Internal Medicine 04/14/20 07/05/20 Abram Gardner MD [address] [place] [address] PCP - General Internal Medicine 07/06/20 12/24/20 Michael Gillette MD [address] [place] [address] PCP - General Internal Medicine 12/25/20 06/28/21 [facility], Pcp [address] [place] [address] PCP - General Internal Medicine 06/29/21 11/14/21 Napoleon Linda [address] [place] [address] PCP - General Internal Medicine 11/15/21 04/20/22 [facility], Pcp [address] [place] [address] PCP - General Internal Medicine 04/21/22 documented as of this encounter
--- OUTSIDE RECORDS SUMMARY | 2024-04-29 13:18 | XMS_ITS | Encounter Summary ---
Author Organization [facility] Address [address] [place] [address] Care Team Providers Care Soaking Room Operator Name Role Phone Louisa Machuca MD Primary Care Provider Unavailable Ruddy Cruz MD Primary Care Provider Unavail able Robinson Howe MD Primary Care Provider [phone] Jesus Monterroso MD Primary Care Provider Abram Flores MD Primary Care Provider Unavailab Michael Duvall MD Primary Care Provider Driss nguyen [facility], Pcp Primary Care Provider UnavailNapoleon White Primary Care Provider [facility], Pcp Primary Care Provider Maria T grace Encounter Details Date Type Department Care Team Description 07/17/2013 Business Doc Medical Records [address] [place] [id number] Abstract, Provider Social History Tobacco Use Types [...] on filedocumented in this encounter Care Teams Soaking Room Operator Relationship Specialty Start Date End Date Louisa Machuca MD PCP - General Internal Medicine 07/17/13 Ruddy Cruz MD PCP - General Internal Medicine 12/19/13 11/02/14 Robinson Howe MD [address] [place] [address] PCP - General Internal Medicine 11/03/14 04/13/20 Jesus Monterroso MD [address] [place] [address] PCP - General Internal Medicine 04/14/20 07/05/20 Abram Gardner MD [address] [place] [address] PCP - General Internal Medicine 07/06/20 12/24/20 Michael Gillette MD [address] [place] [address] PCP - General Internal Medicine 12/25/20 06/28/21 [facility], Pcp [address] [place] [address] PCP - General Internal Medicine 06/29/21 11/14/21 Napoleon Linda [address] [place] [address] PCP - General Internal Medicine 11/15/21 04/20/22 [facility], Pcp [address] [place] [address] PCP - General Internal Medicine 04/21/22 documented as of this encounter
--- OUTSIDE RECORDS SUMMARY | 2024-04-29 13:18 | XMS_ITS | Encounter Summary ---
Author Organization [facility] Address [address] [place] [address] Care Team Providers Care Pr Internship Name Role Phone Robinson Howe MD Primary Care Provider [phone] Jesus Monterroso MD Primary Care Provider Abram Flores MD Primary Care Provider Michael Hinojosa MD Primary Care Provider Driss nguyen [facility], Pcp Primary Care Provider Napoleon Mejia Primary Care Provider [phone] [facility], Pcp Primary Care Provider Maria T grace Encounter Details Date Type Department Care Team Description 11/12/2015 Business Doc Medical Records [address] [place] [id number] Abstract, Provider Social History Tobacco Use Types [...] on filedocumented in this encounter Care Teams Pr Internship Relationship Specialty Start Date End Date Robinson Howe MD [address] [place] [address] PCP - General Internal Medicine 11/03/14 04/13/20 Jesus Monterroso MD [address] [place] [address] PCP - General Internal Medicine 04/14/20 07/05/20 Abram Gardner MD [address] [place] [address] PCP - General Internal Medicine 07/06/20 12/24/20 Michael Gillette MD [address] [place] [address] PCP - General Internal Medicine 12/25/20 06/28/21 [facility], Pcp [address] [place], [place] [phone] PCP - General Internal Medicine 06/29/21 11/14/21 Napoleon Linda [address] [place] [address] PCP - General Internal Medicine 11/15/21 04/20/22 [facility], Pcp [address] [place] [address] PCP - General Internal Medicine 04/21/22 documented as of this encounter
--- OUTSIDE RECORDS SUMMARY | 2024-04-29 13:18 | XMS_ITS | Encounter Summary ---
Author Organization [facility] Address [address] [place] [address] Care Team Providers Care Craps Manager Name Role Phone Michael Gillette MD Primary Care Provider Driss nguyen [facility], Pcp Primary Care Provider Napoleon Mejia Primary Care Provider [phone] [facility], Pcp Primary Care Provider Maria T grace Encounter Details Date Type Department Care Team Description 01/26/2021 Optical Glass Etcher Report Medical Records [address] [place] [address] Osmar Ayala MD Social History Tobacco Use [...] on filedocumented in this encounter Care Teams Craps Manager Relationship Specialty Start Date End Date Michael Gillette MD PCP - General Internal Medicine 12/25/20 06/28/21 [facility], Pcp PCP - General Internal Medicine 06/29/21 11/14/21 Napoleon Linda [address] [place] [address] PCP - General Internal Medicine 11/15/21 04/20/22 [facility], Pcp PCP - General Internal Medicine 04/21/22 documented as of this encounter
--- OUTSIDE RECORDS SUMMARY | 2024-04-29 13:18 | XMS_ITS | Encounter Summary ---
Author Organization [facility] Address [address] [place] [address] Care Team Providers Care Yarn Mercerizer Operator Name Role Phone Robinson Howe MD Primary Care Provider [phone] Jesus Monterroso MD Primary Care Provider Abram Flores MD Primary Care Provider Unavailab Michael Duvall MD Primary Care Provider Driss nguyen [facility], Pcp Primary Care Provider Unavailabl e Napoleon Linda Primary Care Provider [phone] [facility], Pcp Primary Care Provider Unavailabl e Reason for Visit * Reason Onset Date Comments Faxed Order 09/26/2017 Encounter Details Date Type Department Care Team Description 09/26/2017 Telephone Adult [address] [phone] Robinson Howe MD [address] [place] [address] [phone] Faxed Order Social History Tobacco Use Types [...] Yulisa Alexandra - 09/26/2017 10:58 AM EDT [facility], Referral Form, documented in this encounter Plan of Treatment Not on file documented as of this encounter Visit Diagnoses Not on filedocumented in this encounter Care Teams Yarn Mercerizer Operator Relationship Specialty Start Date End Date Robinson Howe MD [address] [place] [address] PCP - General Internal Medicine 11/03/14 04/13/20 Jesus Monterroso MD [address] [place] [address] PCP - General Internal Medicine 04/14/20 07/05/20 Abram Gardner MD [address] [place] [address] PCP - General Internal Medicine 07/06/20 12/24/20 Michael Gillette MD [address] [place] [address] PCP - General Internal Medicine 12/25/20 06/28/21 [facility], Pcp [address] [place] [address] PCP - General Internal Medicine 06/29/21 11/14/21 Napoleon Linda [address] [place] [address] PCP - General Internal Medicine 11/15/21 04/20/22 [facility], Pcp [address] [place], [place] [phone] PCP - General Internal Medicine 04/21/22 documented as of this encounter
--- OUTSIDE RECORDS SUMMARY | 2024-04-29 13:18 | XMS_ITS | Encounter Summary ---
Author Organization [facility] Address [address] [place] [address] Care Team Providers Care Opto Mechanical Engineer Name Role Phone Michael Gillette MD Primary Care Provider Driss nguyen [facility], Pcp Primary Care Provider Napoleon Mejia Primary Care Provider [phone] [facility], Pcp Primary Care Provider Unavailabl e Reason for Visit * Reason Comments E-prescribe Rx Request Encounter Details Date Type Department Care Team Description 03/28/2021 Refill Adult Medicine [address] [address] Jerod Daniel PA-C [address] [place] [address] [id number] E-prescribe Rx Request Social History Tobacco Use [...] Miscellaneous Notes * Telephone Encounter - Cathy Andrea - 03/31/2021 2:36 PM EST Faxed to pharmacy * Telephone Encounter - Mary [place]enton M.A. - 03/31/2021 1:30 PM EST Lab Results Component Value Date HGBA1C 6.1 11/04/2020 MALBUR 33.1 06/26/2020 MALBCR 17.6 06/26/2020 CHOL 184 11/04/2020 LDL 106 11/04/2020 HDL 55 11/04/2020 TRIG 119 11/04/2020 GLU 88 11/04/2020 CREAT 0.71 11/04/2020 [place] 01/05/21 NOV 06/29/21 documented in this encounter Plan of Treatment Not on file documented as of this encounter Visit Diagnoses Not on filedocumented in this encounter Care Teams Opto Mechanical Engineer Relationship Specialty Start Date End Date Michael Gillette MD PCP - General Internal Medicine 12/25/20 06/28/21 [facility] Pcp PCP - General Internal Medicine 06/29/21 11/14/21 [place] [address] PCP - General Internal Medicine 11/15/21 04/20/22 [facility], Pcp PCP - General Internal Medicine 04/21/22 documented as of this encounter
--- OUTSIDE RECORDS SUMMARY | 2024-04-29 13:18 | XMS_ITS | Encounter Summary ---
Author Organization [facility] Address [address] [place] [address] Care Team Providers Care Dialysis Biomed Technician Name Role Phone Robinson Howe MD Primary Care Provider + [phone] Jesus Monterroso MD Primary Care Provider Abram Flores MD Primary Care Provider UnavailMichael Elmore MD Primary Care Provider Driss nguyen [facility], Pcp Primary Care Provider UnavailNapoleon White Primary Care Provider [facility], Pcp Primary Care Provider Unavailguido e Encounter Details Date Type Department Care Team Description 11/11/2019 Telephone Adult Medicine [address] [id number] Robinson Howe MD [address] [place] [address] [id number] Social History Tobacco Use Types Packs/Day Years [...] on filedocumented in this encounter Care Teams Dialysis Biomed Technician Relationship Specialty Start Date End Date Robinson Howe MD [address] [place] [address] PCP - General Internal Medicine 11/03/14 04/13/20 Jesus Monterroso MD [address] [place] [address] PCP - General Internal Medicine 04/14/20 07/05/20 Abram Gardner MD [address] [place] [address] PCP - General Internal Medicine 07/06/20 12/24/20 Michael Gillette MD [address] [place] [address] PCP - General Internal Medicine 12/25/20 06/28/21 [facility], Pcp [address] [place] [address] PCP - General Internal Medicine 06/29/21 11/14/21 Napoleon Linda [address] [place] [address] PCP - General Internal Medicine 11/15/21 04/20/22 [facility], Pcp [address] [place], [place] [phone] PCP - General Internal Medicine 04/21/22 documented as of this encounter
--- OUTSIDE RECORDS SUMMARY | 2024-04-29 13:18 | XMS_ITS | Encounter Summary ---
Author Organization [facility] Address [address] [place] [address] Care Team Providers Care Marketing Executive Name Role Phone Michael Gillette MD Primary Care Provider Driss nguyen [facility], Pcp Primary Care Provider Napoleon Mejia Primary Care Provider [phone] [facility], Pcp Primary Care Provider Maria T grace Encounter Details Date Type Department Care Team Description 01/13/2021 Orders Only Adult Medicine [address] [address] Michael Gillette MD Preoperative examination; Screening for deficiency anemia; jail current use of anticoagulant therapy Social History Tobacco Use Types Packs/Day Years [...] as of this encounter Plan of Treatment Scheduled Orders Name Type Priority Associated Diagnoses Orde r Schedule CBC (AUTO DIFF PLATELET) Lab Routine Preoperative examination Screening for deficiency anemia Expected: 01/13/2021 (Approximate), Expires: 01/13/2022 BASIC METABOLIC PANEL Lab Routine Preoperative examination Expected: 01/13/2021 (Approximate), Expires: 01/13/2022 PROTHROMBIN TIME Lab Routine Preoperative examination joint terminal attack controller current use of anticoagulant therapy Expected: 01/13/2021 (Approximate), Expires: 01/13/2022 THROMBOPLASTIN TIME, PARTIAL Lab Routine Preoperative examination jail current use of anticoagulant therapy Expected: 01/13/2021 (Approximate), Expires: 01/13/2022 URINALYSIS, ROUTINE Lab Routine Preoperative examination Expected: 01/13/2021 (Approximate), Expires: 01/13/2022 documented as of this encounter Visit Diagnoses Diagnosis Preoperative examination Preoperative examination, unspecified Screening for deficiency anemia Screening for other and unspecified deficiency anemia joint terminal attack controller current use of anticoagulant therapy documented in this encounter Care Teams Marketing Executive Relationship Specialty Start Date End Date Michael Gillette MD PCP - General Internal Medicine 12/25/20 06/28/21 [facility]cp PCP - General Internal Medicine 06/29/21 11/14/21 Napoleon Linda [address] [place] [address] PCP - General Internal Medicine 11/15/21 04/20/22 [facility]cp PCP - General Internal Medicine 04/21/22 documented as of this encounter
--- OUTSIDE RECORDS SUMMARY | 2024-04-29 13:18 | XMS_ITS | Encounter Summary ---
Author Organization [facility] Address [address] [place] [address] Care Team Providers Care Cement Fittings Maker Name Role Phone Robinson Howe MD Primary Care Provider + [phone] Jesus Monterroso MD Primary Care Provider Abram Flores MD Primary Care Provider Michael Hinojosa MD Primary Care Provider Driss nguyen [facility], Pcp Primary Care Provider Napoleon Mejia Primary Care Provider [phone] [facility], Pcp Primary Care Provider Maria T grace Encounter Details Date Type Department Care Team Description 11/28/2017 Release of Information Medical Records [address] [place] [address] Abstract, Provider Social History Tobacco Use Types [...] on filedocumented in this encounter Care Teams Cement Fittings Maker Relationship Specialty Start Date End Date Robinson Howe MD [address] [place] [address] PCP - General Internal Medicine 11/03/14 04/13/20 Jesus Monterroso MD [address] [place] [address] PCP - General Internal Medicine 04/14/20 07/05/20 Abram Gardner MD [address] [place] [address] PCP - General Internal Medicine 07/06/20 12/24/20 Michael Gillette MD [address] [place] [address] PCP - General Internal Medicine 12/25/20 06/28/21 [facility], Pcp [address] [place], [place] [phone] PCP - General Internal Medicine 06/29/21 11/14/21 Napoleon Linda [address] [place] [address] PCP - General Internal Medicine 11/15/21 04/20/22 [facility], Pcp [address] [place] [address] PCP - General Internal Medicine 04/21/22 documented as of this encounter
--- OUTSIDE RECORDS SUMMARY | 2024-04-29 13:18 | XMS_ITS | Encounter Summary ---
Author Organization [facility] Address [address] [place] [address] [address] [place] [address] Care Team Providers Care Collection Team Lead Name Role Phone Unavailable Primary Care Provider Unavailabl e Reason for Visit * Reason Onset Date Comments Durable Medical Equipment 01/18/2023 Encounter Details Date Type Department Care Team ([facility] st Contact Info) Description 01/18/2023 Telephone [facility] MEDICINE [address] [place] [address] Jesus Wiseman MD [address] [place], [place] [phone] Durable Medical Equipment Social History Tobacco Use [...] PM EST Tc from Susana working with [facility] requesting the following. Pull ups size Medium 4 per day, Wipes 4 per month, Disposable bed pads 2 per day, and she [id number] refills for all the supply's. Any questions please contact Susana at [phone] ext [phone] FYI after further inspection this pt does not seem active. documented in this encounter Plan of Treatment Upcoming Encounters Date Type Department Care Team (Late st Contact Info) Description 09/13/2024 3:00 PM EDT Office Visit [facility] ADULT DENTAL [address] [place] [address] Madeline Baltazar [address] [place] [address] documented as of this encounter Visit Diagnoses Not on filedocumented in this encounter
--- OUTSIDE RECORDS SUMMARY | 2024-04-29 13:18 | XMS_ITS | Encounter Summary ---
Author Organization [facility] Address [address] [place] [address] Care Team Providers Care Aoc Operations Intelligence Chief Name Role Phone Robinson Howe MD Primary Care Provider [phone] Jesus Monterroso MD Primary Care Provider Abram Flores MD Primary Care Provider Unavailab Michael Duvall MD Primary Care Provider Driss nguyen [facility], Pcp Primary Care Provider Unavailabl e Napoleon Linda Primary Care Provider [facility], Pcp Primary Care Provider Unavailabl e Reason for Visit * Reason Onset Date Comments refill request 06/10/2019 Encounter Details Date Type Department Care Team Description 06/10/2019 Refill Adult Medicine [address] [phone] Robinson Howe MD [address] [place] [address] [phone] refill request Social History Tobacco Use Types [...] - 06/10/2019 5:[address] Ayala ([facility]) prescribed the Advair. However it's possible the [...] N/A Patients current insurance carrier is: Payor: [facility] [employer] MCR / Plan: HMO [facility]0 [id number] / Product Type: HMO [id number] documented in this encounter Plan of Treatment Not on file documented as of this encounter Visit Diagnoses Not on filedocumented in this encounter Care Teams Aoc Operations Intelligence Chief Relationship Specialty Start Date End Date Robinson Howe MD [address] [place] [address] PCP - General Internal Medicine 11/03/14 04/13/20 Jesus Monterroso MD [address] [place] [address] PCP - General Internal Medicine 04/14/20 07/05/20 Abram Gardner MD [address] [place] [address] PCP - General Internal Medicine 07/06/20 12/24/20 Michael Gillette MD [address] [place] [address] PCP - General Internal Medicine 12/25/20 06/28/21 [facility], Pcp [address] [place] [address] PCP - General Internal Medicine 06/29/21 11/14/21 Napoleon Linda [address] [place] [address] PCP - General Internal Medicine 11/15/21 04/20/22 [facility], Pcp [address] [place], [place] [phone] PCP - General Internal Medicine 04/21/22 documented as of this encounter
--- OUTSIDE RECORDS SUMMARY | 2024-04-29 13:19 | XMS_ITS | Encounter Summary ---
Author Organization [facility] Address [address] [place] [address] Care Team Providers Care Measurer Machine Name Role Phone Robinson Howe MD Primary Care Provider + [phone] Jesus Monterroso MD Primary Care Provider Abram Flores MD Primary Care Provider Michael Hinojosa MD Primary Care Provider Driss nguyen [facility], Pcp Primary Care Provider Napoleon Mejia Primary Care Provider [phone] [facility], Pcp Primary Care Provider Maria T grace Encounter Details Date Type Department Care Team Description 11/07/2016 Business Doc Medical Records [address] [place] [address] Abstract, Provider Social History Tobacco Use Types [...] on filedocumented in this encounter Care Teams Measurer Machine Relationship Specialty Start Date End Date Robinson Howe MD [address] [place] [address] PCP - General Internal Medicine 11/03/14 04/13/20 Jesus Monterroso MD [address] [place] [address] PCP - General Internal Medicine 04/14/20 07/05/20 Abram Gardner MD [address] [place] [address] PCP - General Internal Medicine 07/06/20 12/24/20 Michael Gillette MD [address] [place] [address] PCP - General Internal Medicine 12/25/20 06/28/21 [facility], Pcp [address] [place], [place] [phone] PCP - General Internal Medicine 06/29/21 11/14/21 Napoleon Linda [address] [place] [address] PCP - General Internal Medicine 11/15/21 04/20/22 [facility], Pcp [address] [place] [address] PCP - General Internal Medicine 04/21/22 documented as of this encounter
--- OUTSIDE RECORDS SUMMARY | 2024-04-29 13:19 | XMS_ITS | Encounter Summary ---
Author Organization [facility] Address [address] [place] [address] Care Team Providers Care Welding Equipment Repairer Supervisor Name Role Phone Robinson Howe MD Primary Care Provider + [phone] Jesus Monterroso MD Primary Care Provider Abram Flores MD Primary Care Provider Michael Hinojosa MD Primary Care Provider Driss nguyen [facility], Pcp Primary Care Provider Napoleon Mejia Primary Care Provider [phone] [facility], Pcp Primary Care Provider Maria T grace Encounter Details Date Type Department Care Team Description 01/21/2015 Business Doc Medical Records [address] [place] [address] Abstract, Provider Social History Tobacco Use Types [...] on filedocumented in this encounter Care Teams Welding Equipment Repairer Supervisor Relationship Specialty Start Date End Date Robinson Howe MD [address] [place] [address] PCP - General Internal Medicine 11/03/14 04/13/20 Jesus Monterroso MD [address] [place] [address] PCP - General Internal Medicine 04/14/20 07/05/20 Abram Gardner MD [address] [place] [address] PCP - General Internal Medicine 07/06/20 12/24/20 Michael Gillette MD [address] [place] [address] PCP - General Internal Medicine 12/25/20 06/28/21 [facility], Pcp [address] [place], [place] [phone] PCP - General Internal Medicine 06/29/21 11/14/21 Napoleon Linda [address] [place] [address] PCP - General Internal Medicine 11/15/21 04/20/22 [facility], Pcp [address] [place] [address] PCP - General Internal Medicine 04/21/22 documented as of this encounter
--- OUTSIDE RECORDS SUMMARY | 2024-04-29 13:19 | XMS_ITS | Encounter Summary ---
Author Organization [facility] Address [address] [place] [address] Care Team Providers Care Medicine Man Name Role Phone Ruddy Cruz MD Primary Care Provider Unavail able Robinson Howe MD Primary Care Provider [phone] Jesus Monterroso MD Primary Care Provider Abram Flores MD Primary Care Provider Unavailab Michael Duvall MD Primary Care Provider Mariaelenavagabriel nguyen [facility], Pcp Primary Care Provider UnavailNapoleon White Primary Care Provider [phone] [facility], Pcp Primary Care Provider Unavailabl e Encounter Details Date Type Department Care Team Description 09/11/2014 Business Doc Medical Records [address] [place] [address] Abstract, Provider Social History Tobacco Use Types [...] on filedocumented in this encounter Care Teams Medicine Man Relationship Specialty Start Date End Date Ruddy Cruz MD PCP - General Internal Medicine 12/19/13 11/02/14 Robinson Howe MD [address] [place] [address] [phone] PCP - General Internal Medicine 11/03/14 04/13/20 Jesus Monterroso MD [address] [place] [address] PCP - General Internal Medicine 04/14/20 07/05/20 Abram Gardner MD [address] [place] [address] PCP - General Internal Medicine 07/06/20 12/24/20 Michael Gillette MD [address] [place] [address] PCP - General Internal Medicine 12/25/20 06/28/21 [facility], Pcp [address] [place] [address] PCP - General Internal Medicine 06/29/21 11/14/21 Napoleon Linda [address] [place], [place] [phone] PCP - General Internal Medicine 11/15/21 04/20/22 [facility], Pcp [address] [place] [address] PCP - General Internal Medicine 04/21/22 documented as of this encounter
--- OUTSIDE RECORDS SUMMARY | 2024-04-29 13:19 | XMS_ITS | Encounter Summary ---
Author Organization [facility] Address [address] [place] [address] Care Team Providers Care Steel Rule Inspector Name Role Phone Ruddy Cruz MD Primary Care Provider Unavail able Robinson Howe MD Primary Care Provider + [phone] Jesus Monterroso MD Primary Care Provider Abram Flores MD Primary Care Provider Unavailab Michael Duvall MD Primary Care Provider Mariaelenavagabriel nguyen [facility], Pcp Primary Care Provider UnavailNapoleon White Primary Care Provider [phone] [facility], Pcp Primary Care Provider Unavailabl e Encounter Details Date Type Department Care Team Description 07/31/2014 Business Doc Medical Records [address] [place] [address] Abstract, Provider Social History Tobacco Use Types [...] on filedocumented in this encounter Care Teams Steel Rule Inspector Relationship Specialty Start Date End Date Ruddy Cruz MD PCP - General Internal Medicine 12/19/13 11/02/14 Robinson Howe MD [address] [place] [address] [phone] PCP - General Internal Medicine 11/03/14 04/13/20 Jesus Monterroso MD [address] [place] [address] PCP - General Internal Medicine 04/14/20 07/05/20 Abram Gardner MD [address] [place] [address] PCP - General Internal Medicine 07/06/20 12/24/20 Michael Gillette MD [address] [place] [address] PCP - General Internal Medicine 12/25/20 06/28/21 [facility], Pcp [address] [place] [address] PCP - General Internal Medicine 06/29/21 11/14/21 Napoleon Linda [address] [place], [place] [phone] PCP - General Internal Medicine 11/15/21 04/20/22 [facility], Pcp [address] [place] [address] PCP - General Internal Medicine 04/21/22 documented as of this encounter
--- OUTSIDE RECORDS SUMMARY | 2024-04-29 13:19 | XMS_ITS | Encounter Summary ---
Author Organization [facility] Address [address] [place] [address] Care Team Providers Care Healthcare Economics Manager Name Role Phone Robinson Howe MD Primary Care Provider + [phone] Jesus Monterroso MD Primary Care Provider Abram Flores MD Primary Care Provider Unavailab Michael Duvall MD Primary Care Provider Driss nguyen [facility], Pcp Primary Care Provider UnavailNapoleon White Primary Care Provider [phone] [facility], Pcp Primary Care Provider Unavailabl e Reason for Visit * Reason Comments E-prescribe Rx Request Encounter Details Date Type Department Care Team Description 04/24/2019 Refill Adult Medicine [address] [address] Jerod Daniel PA-C [address] [place] [address] E-prescribe Rx Request Social History Tobacco Use [...] Telephone Encounter - Mary Benton M.A. - 04/24/2019 11:00 AM EST Lab Results Component Value Date NA 140 03/14/2019 K 4.3 03/14/2019 CO2 27 03/14/2019 CL 108 03/14/2019 BUN 16 03/14/2019 CREAT 0.80 03/14/2019 GLU 97 03/14/2019 CA 9.5 03/14/2019 GFR > 60 03/14/2019 * Telephone Encounter - Raine Cheatham - 04/24/2019 8:43 AM EST Patient would like script to be: E-PRESCRIBED/FAXED TO PHARMACY WHEN WAS THE PATIENT'S LAST APPOINTMENT IN ADULT MEDICINE? 03/14/19 WHEN WAS THE LAST TIME THE PATIENT SAW THEIR PCP? Same as above Does patient have an upcoming appointment? Yes 06/14/19 (THE MEDICATION REQUESTED IS ON THE MED [...] N/A Patients current insurance carrier is: [facility] MCR / Plan: [facility]MO $0 [facility] [id number] / Product Type: HMO [id number] documented in this encounter Plan of Treatment [...] reflux documented in this encounter Care Teams Healthcare Economics Manager Relationship Specialty Start Date End Date Robinson Howe MD [address] [place] [address] PCP - General Internal Medicine 11/03/14 04/13/20 Jesus Monterroso MD [address] [place] [address] PCP - General Internal Medicine 04/14/20 07/05/20 Abram Gardner MD [address] [place], [place] [phone] PCP - General Internal Medicine 07/06/20 12/24/20 Michael Gillette MD [address] [place] [address] PCP - General Internal Medicine 12/25/20 06/28/21 [facility], Pcp [address] [place] [address] PCP - General Internal Medicine 06/29/21 11/14/21 Napoleon Linda [address] [place] [address] PCP - General Internal Medicine 11/15/21 04/20/22 [facility], Pcp [address] [place], [place] [phone] PCP - General Internal Medicine 04/21/22 documented as of this encounter
--- OUTSIDE RECORDS SUMMARY | 2024-04-29 13:19 | XMS_ITS | Encounter Summary ---
Author Organization [facility] Address [address] [place] [address] Care Team Providers Care Energy Project Manager Name Role Phone Robinson Howe MD Primary Care Provider + [phone] Jesus Monterroso MD Primary Care Provider Abram Flores MD Primary Care Provider Unavailab Michael Duvall MD Primary Care Provider Driss nguyen [facility], Pcp Primary Care Provider UnavailNapoleon White Primary Care Provider [phone] [facility], Pcp Primary Care Provider Unavailabl e Reason for Visit * Reason Comments E-prescribe Rx Request Encounter Details Date Type Department Care Team Description 09/17/2016 Refill Adult Medicine [address] [phone] Jerod Daniel PA-C [address] [place] [address] [phone] E-prescribe Rx Request Social History Tobacco Use [...] / Plan: [place] / Product Type: MEDICARE [id number] documented in this encounter Plan of Treatment [...] exacerbation documented in this encounter Care Teams Energy Project Manager Relationship Specialty Start Date End Date Robinson Howe MD [address] [place] [address] PCP - General Internal Medicine 11/03/14 04/13/20 Jesus Monterroso MD [address] [place] [address] PCP - General Internal Medicine 04/14/20 07/05/20 Abram Gardner MD [address] [place] [address] PCP - General Internal Medicine 07/06/20 12/24/20 Michael Gillette MD [address] [place] [address] 9[address]67 PCP - General Internal Medicine 12/25/20 06/28/21 [facility], Pcp [address] [place], [place] [phone] PCP - General Internal Medicine 06/29/21 11/14/21 Napoleon Linda [address] [place] [address] PCP - General Internal Medicine 11/15/21 04/20/22 [facility], Pcp [address] [place] [address] PCP - General Internal Medicine 04/21/22 documented as of this encounter
--- OUTSIDE RECORDS SUMMARY | 2024-04-29 13:19 | XMS_ITS | Encounter Summary ---
Author Organization [facility] Address [address] [place] [address] Care Team Providers Care Industrial Relations Officer Name Role Phone Robinson Howe MD Primary Care Provider + [phone] Jesus Monterroso MD Primary Care Provider Abram Flores MD Primary Care Provider Michael Hinojosa MD Primary Care Provider Driss nguyen [facility], Pcp Primary Care Provider Napoleon Mejia Primary Care Provider [phone] [facility], Pcp Primary Care Provider Maria T grace Encounter Details Date Type Department Care Team Description 08/07/2016 Release of Information Medical Records [address] [place] [address] Abstract, Provider Social History Tobacco Use Types [...] on filedocumented in this encounter Care Teams Industrial Relations Officer Relationship Specialty Start Date End Date Robinson Howe MD [address] [place] [address] PCP - General Internal Medicine 11/03/14 04/13/20 Jesus Monterroso MD [address] [place] [address] 31158 PCP - General Internal Medicine 04/14/20 07/05/20 Abram Gardner MD [address] [place] [address]697 PCP - General Internal Medicine 07/06/20 12/24/20 Michael Gillette MD [address] [place] [address] PCP - General Internal Medicine 12/25/20 06/28/21 [facility], Pcp [address] [place], [place] [phone] PCP - General Internal Medicine 06/29/21 11/14/21 Napoleon Linda [address] [place] [address] PCP - General Internal Medicine 11/15/21 04/20/22 [facility], Pcp [address] [place] [address] PCP - General Internal Medicine 04/21/22 documented as of this encounter
--- OUTSIDE RECORDS SUMMARY | 2024-04-29 13:19 | XMS_ITS | Encounter Summary ---
Author Organization Formerly [facility] Address [address] [place] [address] Care Team Providers Care Payroll Tax Specialist Name Role Phone Abram Gardner MD Primary Care Provider Michael Hinojosa MD Primary Care Provider Driss nguyen [facility], Pcp Primary Care Provider Napoleon Mejia Primary Care Provider [phone] [facility] Pcp Primary Care Provider Unavailabl e Reason for Visit * Reason Comments E-prescribe Rx Request Encounter Details Date Type Department Care Team Description 10/27/2020 Refill Adult Medicine [address] [address] Jerod Daniel PA-C [address] [place] [address] E-prescribe Rx Request Social History Tobacco Use [...] [facility] M[facility] / Plan: O $0 [facility] [id number] / Product Type: HMO [id number] documented in this encounter Plan of Treatment [...] exacerbation documented in this encounter Care Teams Payroll Tax Specialist Relationship Specialty Start Date End Date Abram Gardner MD PCP - General Internal Medicine 07/06/20 12/24/20 Michael Gillette MD PCP - General Internal Medicine 12/25/20 06/28/21 [facility], Pcp PCP - General Internal Medicine 06/29/21 11/14/21 Napoleon Linda [address] [place] [address] PCP - General Internal Medicine 11/15/21 04/20/22 [facility], Pcp PCP - General Internal Medicine 04/21/22 documented as of this encounter
--- OUTSIDE RECORDS SUMMARY | 2024-04-29 13:19 | XMS_ITS | Encounter Summary ---
Author Organization [facility] Address [address] [place] [address] Care Team Providers Care Freezer Laboratory Technician Name Role Phone Abram Gardner MD Primary Care Provider Michael Hinojosa MD Primary Care Provider Driss nguyen [facility], Pcp Primary Care Provider Napoleon Mejia Primary Care Provider [phone] [facility] Pcp Primary Care Provider Unavailabl e Reason for Visit * Reason Comments E-prescribe Rx Request Encounter Details Date Type Department Care Team Description 07/22/2020 Refill Adult Medicine [address] [address] Robinson Howe MD [address] [place] [address] E-prescribe Rx Request Social History Tobacco Use [...] have Coronavirus / COVID-19? No / Unsure 07/16/2020 10:16 AM EDT documented as of this encounter Miscellaneous Notes * Telephone Encounter - Tiffanie Soria 07/22/2020 11:45 AM EDT [place] 07/06/2020 (return in 4 mths) No F/U appt Lab Results Component Value Date HGBA1C 6.2 06/26/2020 MALBUR 33.1 06/26/2020 MALBCR 17.6 06/26/2020 CHOL 195 06/26/2020 LDL 112 06/26/2020 HDL 54 06/26/2020 TRIG 146 06/26/2020 GLU 111 06/26/2020 CREAT 0.89 06/26/2020 * Telephone Encounter - Tamera Parada - 07/22/2020 11:08 AM EDT Patient would like script to be: E-PRESCRIBED/FAXED TO PHARMACY WHEN WAS THE PATIENT'S LAST APPOINTMENT IN ADULT MEDICINE? 07/06/20 WHEN WAS THE LAST TIME THE PATIENT SAW THEIR PCP? Same as above Does patient have an upcoming appointment? Yes 11/06/20 (THE MEDICATION REQUESTED IS ON THE MED [...] N/A Patients current insurance carrier is: Payor: [facility] MCR / Plan: HMO $0 [facility] [id number] / Product Type: HMO [id number] documented in this encounter Plan of Treatment [...] exacerbation documented in this encounter Care Teams Freezer Laboratory Technician Relationship Specialty Start Date End Date Abram Gardner MD PCP - General Internal Medicine 07/06/20 12/24/20 Michael Gillette MD PCP - General Internal Medicine 12/25/20 06/28/21 [facility], Pcp PCP - General Internal Medicine 06/29/21 11/14/21 Napoleon Linda [address] [place] [address] PCP - General Internal Medicine 11/15/21 04/20/22 [facility], Pcp PCP - General Internal Medicine 04/21/22 documented as of this encounter
--- OUTSIDE RECORDS SUMMARY | 2024-04-29 13:19 | XMS_ITS | Encounter Summary ---
Author Organization [facility] Address [address] [place] [address] Care Team Providers Care Hardboard Panel Printer Name Role Phone Abram Gardner MD Primary Care Provider Michael Hinojosa MD Primary Care Provider Driss nguyen [facility], Pcp Primary Care Provider Napoleon Mejia Primary Care Provider [phone] [facility], Pcp Primary Care Provider Maria T grace Encounter Details Date Type Department Care Team Description 07/10/2020 Release of Information Medical Records [address] [place] [address] Abstract, Provider Social History Tobacco Use Types [...] on filedocumented in this encounter Care Teams Hardboard Panel Printer Relationship Specialty Start Date End Date Abram Gardner MD PCP - General Internal Medicine 07/06/20 12/24/20 Michael Gillette MD PCP - General Internal Medicine 12/25/20 06/28/21 [facility], Pcp PCP - General Internal Medicine 06/29/21 11/14/21 Napoleon Linda [address] [place] [address] PCP - General Internal Medicine 11/15/21 04/20/22 [facility], Pcp PCP - General Internal Medicine 04/21/22 documented as of this encounter
--- OUTSIDE RECORDS SUMMARY | 2024-04-29 13:19 | XMS_ITS | Encounter Summary ---
Author Organization [facility] Address [address] [place] [address] Care Team Providers Care Senior Foreman Name Role Phone Robinson Howe MD Primary Care Provider [phone] Jesus Monterroso MD Primary Care Provider Abram Flores MD Primary Care Provider Michael Hinojosa MD Primary Care Provider Driss nguyen [facility], Pcp Primary Care Provider Napoleon Mejia Primary Care Provider [phone] [facility], Pcp Primary Care Provider Maria T grace Encounter Details Date Type Department Care Team Description 08/15/2018 Lint Cleaner Report Medical Records [address] [place] [address] Becky Dolan MD Social History Tobacco Use [...] on filedocumented in this encounter Care Teams Senior Foreman Relationship Specialty Start Date End Date Robinson Howe MD [address] [place] [address] PCP - General Internal Medicine 11/03/14 04/13/20 Jesus Monterroso MD [address] [place] [address] PCP - General Internal Medicine 04/14/20 07/05/20 Abram Gardner MD [address] [place] [address] PCP - General Internal Medicine 07/06/20 12/24/20 Michael Gillette MD [address] [place] [address] PCP - General Internal Medicine 12/25/20 06/28/21 [facility], Pcp [address] [place], [place] [phone] PCP - General Internal Medicine 06/29/21 11/14/21 Napoleon Linda [address] [place] [address] PCP - General Internal Medicine 11/15/21 04/20/22 [facility], Pcp [address] [place] [address] PCP - General Internal Medicine 04/21/22 documented as of this encounter
--- OUTSIDE RECORDS SUMMARY | 2024-04-29 13:19 | XMS_ITS | Encounter Summary ---
Author Organization [facility] Address [address] [place] [address] Care Team Providers Care Ticketer Name Role Phone Robinson Howe MD Primary Care Provider [phone] Jesus Monterroso MD Primary Care Provider Abram Flores MD Primary Care Provider Unavailab Michael Duvall MD Primary Care Provider Mariaelenavagabriel nguyen [facility], Pcp Primary Care Provider UnavailNapoleon White Primary Care Provider [phone] [facility], Pcp Primary Care Provider Unavailabl e Reason for Visit * Reason Comments E-prescribe Rx Request Encounter Details Date Type Department Care Team Description 07/20/2016 Refill Physiatry - [address] [address] Alexandria Todd MD [address] [place] [address] [place] [id number] E-prescribe Rx Request Social History Tobacco Use [...] on filedocumented in this encounter Care Teams Ticketer Relationship Specialty Start Date End Date Robinson Howe MD [address] [place] [address] PCP - General Internal Medicine 11/03/14 04/13/20 Jesus Monterroso MD [address] [place] [address] PCP - General Internal Medicine 04/14/20 07/05/20 Abram Gardner MD [address] [place], [place] [phone] PCP - General Internal Medicine 07/06/20 12/24/20 Michael Gillette MD [address] [place] [address] PCP - General Internal Medicine 12/25/20 06/28/21 [facility], Pcp [address] [place] [address] PCP - General Internal Medicine 06/29/21 11/14/21 Napoleon Linda [address] [place], [place] [phone] PCP - General Internal Medicine 11/15/21 04/20/22 [facility], Pcp [address] [place], [place] [phone] PCP - General Internal Medicine 04/21/22 documented as of this encounter
--- OUTSIDE RECORDS SUMMARY | 2024-04-29 13:19 | XMS_ITS | Encounter Summary ---
Author Organization [facility] Address [address] [place] [address] Care Team Providers Care Crm Developer Name Role Phone Robinson Howe MD Primary Care Provider + [phone] Jesus Monterroso MD Primary Care Provider Abram Flores MD Primary Care Provider Unavailab Michael Duvall MD Primary Care Provider Driss nguyen [facility], Pcp Primary Care Provider UnavailNapoleon White Primary Care Provider [phone] [facility], Pcp Primary Care Provider Unavailabl e Reason for Visit * Reason Comments E-prescribe Rx Request Encounter Details Date Type Department Care Team Description 05/25/2019 Refill Adult Medicine [address] [address] Margarita Fox PA-C [address] [place] [address] E-prescribe Rx Request Social History Tobacco Use [...] Telephone Encounter - Tiffanie Hough M.A. - 05/27/2019 11:38 AM EDT Faxed to pharmacy * Telephone Encounter - Mary Benton M.A. - 05/27/2019 11:32 AM EDT Lab Results Component Value Date CHOL 179 03/14/2019 LDL 95 03/14/2019 HDL 51 03/14/2019 TRIG 165 03/14/2019 SGOT 17 03/14/2019 SGPT 22 03/14/2019 * Telephone Encounter - Amaris Saenz - 05/27/2019 11:19 AM EDT Patient would like script to be: E-PRESCRIBED/FAXED TO PHARMACY WHEN WAS THE PATIENT'S LAST APPOINTMENT IN ADULT MEDICINE? 03/14/2019 WHEN WAS THE LAST TIME THE PATIENT SAW THEIR PCP? Same as above Does patient have an upcoming appointment? Yes 06/14/2019 (THE MEDICATION REQUESTED IS ON THE MED [...] N/A Patients current insurance carrier is: Payor: [facility] MCR / Plan: HMO $0 [facility] [id number] / Product Type: HMO [id number] documented in this encounter Plan of Treatment Not on file documented as of this encounter Visit Diagnoses Not on filedocumented in this encounter Care Teams Crm Developer Relationship Specialty Start Date End Date Robinson Howe MD [address] [place] [address] PCP - General Internal Medicine 11/03/14 04/13/20 Jesus Monterroso MD [address] [place] [address] PCP - General Internal Medicine 04/14/20 07/05/20 Abram Gardner MD [address] [place], [place] [phone] PCP - General Internal Medicine 07/06/20 12/24/20 Michael Gillette MD [address] [place] [address] PCP - General Internal Medicine 12/25/20 06/28/21 [facility], Pcp [address] [place], [place] [phone] PCP - General Internal Medicine 06/29/21 11/14/21 Napoleon Linda [address] [place] [address] PCP - General Internal Medicine 11/15/21 04/20/22 [facility], Pcp [address] [place] [address] PCP - General Internal Medicine 04/21/22 documented as of this encounter
--- OUTSIDE RECORDS SUMMARY | 2024-04-29 13:19 | XMS_ITS | Encounter Summary ---
Author Organization [facility] Address [address] [place] [address] Care Team Providers Care Supervisor Show Operations Name Role Phone Robinson Howe MD Primary Care Provider [phone] Jesus Monterorso MD Primary Care Provider Abram Flores MD Primary Care Provider Unavailab Michael Duvall MD Primary Care Provider Unavagabriel nguyen [facility], Pcp Primary Care Provider UnavailNapoleon White Primary Care Provider [phone] [facility], Pcp Primary Care Provider Unavailguido e Encounter Details Date Type Department Care Team Description 06/27/2016 Orders Only Medical Records [address] [place] [address] Alexandria Todd MD [address] [place] [address] [facility] [place] [id number] Social History Tobacco Use Types Packs/Day Years [...] on filedocumented in this encounter Care Teams Supervisor Show Operations Relationship Specialty Start Date End Date Robinson Howe MD [address] [place] [address] PCP - General Internal Medicine 11/03/14 04/13/20 Jesus Monterroso MD [address] [place] [address] PCP - General Internal Medicine 04/14/20 07/05/20 Abram Gardner MD [address] [place] [address] PCP - General Internal Medicine 07/06/20 12/24/20 Michael Gillette MD [address] [place] [address] PCP - General Internal Medicine 12/25/20 06/28/21 [facility], Pcp [address] [place] [address] PCP - General Internal Medicine 06/29/21 11/14/21 Napoleon Linda [address] [place] [address] PCP - General Internal Medicine 11/15/21 04/20/22 [facility], Pcp [address] [place] [address] PCP - General Internal Medicine 04/21/22 documented as of this encounter
--- OUTSIDE RECORDS SUMMARY | 2024-04-29 13:19 | XMS_ITS | Encounter Summary ---
Author Organization [facility] Address [address] [place] [address] Care Team Providers Care Senior Medical Writer Name Role Phone Jesus Monterroso MD Primary Care Provider Abram Flores MD Primary Care Provider Unavailab Michael Duvall MD Primary Care Provider Driss nguyen [facility], Pcp Primary Care Provider Napoleon Mejia Primary Care Provider [phone] [facility] Primary Care Provider Unavailabl e Reason for Visit * Reason Comments E-prescribe Rx Request Encounter Details Date Type Department Care Team Description 06/29/2020 Refill Allergy [address] [address] Cait Dumas MD E-prescribe Rx Request Social [...] filedocumented in this encounter Care Teams Senior Medical Writer Relationship Specialty Start Date End Date Jesus Monterroso MD PCP - General Internal Medicine 04/14/20 07/05/20 Abram Gardner MD PCP - General Internal Medicine 07/06/20 12/24/20 Michael Gillette MD PCP - General Internal Medicine 12/25/20 06/28/21 [facility], Pcp PCP - General Internal Medicine 06/29/21 11/14/21 Napoleon Linda [address] [place] [address] PCP - General Internal Medicine 11/15/21 04/20/22 [facility], Pcp PCP - General Internal Medicine 04/21/22 documented as of this encounter
--- OUTSIDE RECORDS SUMMARY | 2024-04-29 13:19 | XMS_ITS | Encounter Summary ---
Author Organization [facility] Address [address] [place] [address] Care Team Providers Care Trim Sawyer Name Role Phone Abram Gardner MD Primary Care Provider Michael Hinojosa MD Primary Care Provider Driss nguyen [facility], Pcp Primary Care Provider Napoleon Mejia Primary Care Provider [facility], Pcp Primary Care Provider Maria T grace Encounter Details Date Type Department Care Team Description 10/29/2020 Plant Control Operator Report Medical Records [address] [place] [address] Osmar Ayala MD Social History Tobacco Use [...] on filedocumented in this encounter Care Teams Trim Sawyer Relationship Specialty Start Date End Date Abram Gardner MD PCP - General Internal Medicine 07/06/20 12/24/20 Michael Gillette MD PCP - General Internal Medicine 12/25/20 06/28/21 [facility], Pcp PCP - General Internal Medicine 06/29/21 11/14/21 Napoleon Linda [address] [place] [address] PCP - General Internal Medicine 11/15/21 04/20/22 [facility], Pcp PCP - General Internal Medicine 04/21/22 documented as of this encounter
--- OUTSIDE RECORDS SUMMARY | 2024-04-29 13:19 | XMS_ITS | Encounter Summary ---
Author Organization [facility] Address [address] [place] [address] Care Team Providers Care Sow Farm Technician Name Role Phone Roibnson Howe MD Primary Care Provider [phone] Jesus Monterroso MD Primary Care Provider Abram Flores MD Primary Care Provider Unavailab Michael Duvall MD Primary Care Provider Driss nguyen [facility], Pcp Primary Care Provider Unavailabl Napoleon Ramirez Primary Care Provider [phone] [facility], Pcp Primary Care Provider Unavailabl e Reason for Visit * Reason Onset Date Comments Sleep Study 10/30/2018 Encounter Details Date Type Department Care Team Description 10/30/2018 Telephone Pediatrics - [address] [address] Meredith Mcdonald FNP [address] [place] [address] Sleep Study Social History Tobacco Use Types Packs/Day Years [...] encounter Miscellaneous Notes * Telephone Encounter - EVE Newman - 10/30/2018 7:24 PM EDT Iliana Please call Joanna and let her know the sleep study showed that CPAP is the recommended treatment for her sleep apnea. The recommendation was to use CPAP @ 6. If she wants to use the CPAP, needs to see me again so we can get a new machine ordered ([facility] recalled her machine). If declines, please remind her that -- Negative health outcomes from untreated sleep apnea include: heart attack, sudden cardiac , abnormal heart rhythms, stroke, seizures, hypertension, cognition impairment (memory problems), metabolism impairment and diabetes. Therapy for sleep apnea can help to reduce the risk of some of these negative health outcomes. We recommend treatment! Thank you. documented in this encounter Plan of Treatment Not on file documented as of this encounter Visit Diagnoses Not on filedocumented in this encounter Care Teams Sow Farm Technician Relationship Specialty Start Date End Date Robinson Howe MD [address] [place] [address] PCP - General Internal Medicine 11/03/14 04/13/20 Jesus Monterroso MD [address] [place] [address] PCP - General Internal Medicine 04/14/20 07/05/20 Abram Gardner MD [address] [place] [address] PCP - General Internal Medicine 07/06/20 12/24/20 Michael Gillette MD [address] [place] [address] PCP - General Internal Medicine 12/25/20 06/28/21 [facility], Pcp [address] [place] [address] PCP - General Internal Medicine 06/29/21 11/14/21 Napoleon Linda [address] [place] [address] PCP - General Internal Medicine 11/15/21 04/20/22 [facility], Pcp [address] [place] [address] PCP - General Internal Medicine 04/21/22 documented as of this encounter
--- OUTSIDE RECORDS SUMMARY | 2024-04-29 13:19 | XMS_ITS | Encounter Summary ---
Author Organization [facility] Address [address] [place] [address] Care Team Providers Care Content Writer Name Role Phone Ruddy Cruz MD Primary Care Provider Unavail able Robinson Howe MD Primary Care Provider [phone] Jesus Monterroso MD Primary Care Provider Abram Flores MD Primary Care Provider UnavailMichael Elmore MD Primary Care Provider Driss nguyen [facility], Pcp Primary Care Provider UnavailNapoleon White Primary Care Provider [phone] [facility], Pcp Primary Care Provider Unavailguido e Encounter Details Date Type Department Care Team Description 03/25/2014 Home Health Certification Medical Records [address] [place] [address] Abstract, Provider Social History Tobacco Use Types [...] on filedocumented in this encounter Care Teams Content Writer Relationship Specialty Start Date End Date Ruddy Cruz MD PCP - General Internal Medicine 12/19/13 11/02/14 Robinson Howe MD [address] [place] [id number] PCP - General Internal Medicine 11/03/14 04/13/20 Jesus Monterroso MD [address] [place] [address] PCP - General Internal Medicine 04/14/20 07/05/20 Abram Gardner MD [address] [place] [address] PCP - General Internal Medicine 07/06/20 12/24/20 Michael Gillette MD [address] [place] [address] PCP - General Internal Medicine 12/25/20 06/28/21 [facility], Pcp [address] [place] [address] PCP - General Internal Medicine 06/29/21 11/14/21 Napoleon Linda [address] [place] [address] PCP - General Internal Medicine 11/15/21 04/20/22 [facility], Pcp [address] [place] [address] PCP - General Internal Medicine 04/21/22 documented as of this encounter
--- OUTSIDE RECORDS SUMMARY | 2024-04-29 13:19 | XMS_ITS | Encounter Summary ---
Author Organization [facility] Address [address] [place] [address] Care Team Providers Care Silver Brazer Name Role Phone Robinson Howe MD Primary Care Provider + [phone] Jesus Monterroso MD Primary Care Provider Abram Flores MD Primary Care Provider Unavailab Michael Duvall MD Primary Care Provider Driss nguyen [facility], Pcp Primary Care Provider Unavailabl Napoleon Ramirez Primary Care Provider [phone] [facility], Pcp Primary Care Provider Unavailabl e Reason for Visit * Reason Comments E-prescribe Rx Request Encounter Details Date Type Department Care Team Description 02/09/2017 Refill Adult Medicine [address] [id number] Robinson Howe MD [address] [place] [id number] E-prescribe Rx Request Social History Tobacco Use [...] Telephone Encounter - Cathy Valero M.A. - 02/09/2017 12:34 PM EST Lab Results Component Value Date HGBA1C 6.3 12/01/2016 MALBUR 11.5 12/02/2016 MALBCR 8.9 12/02/2016 CHOL 213 12/01/2016 LDL 128 12/01/2016 HDL 51 12/01/2016 TRIG 173 12/01/2016 GLU 146 12/01/2016 CREAT 0.8 12/01/2016 * Telephone Encounter - [facility] - 02/09/2017 11:47 AM EST Patient would like script to be: E-PRESCRIBED/FAXED TO PHARMACY WHEN WAS THE PATIENT'S LAST APPOINTMENT IN ADULT MEDICINE? 01/20/17 WHEN WAS THE LAST TIME THE PATIENT SAW THEIR PCP? 04/16/15 Does patient have an upcoming appointment? Yes 04/12/17 (THE MEDICATION REQUESTED IS ON THE MED LIST ABOVE) All of the medications requested were on the CURRENT MEDS list Did you check the Pharmacy information above?: YES Patient wants: 90 -day supply Is this a mail order prescription request ? NO Patients current insurance carrier is: [place] / [place] / Product Type: MEDICARE [id number] documented in this encounter Plan of Treatment Not on file documented as of this encounter Visit Diagnoses Diagnosis Type 2 diabetes mellitus with diabetic neuropathy (HCC) Type II or unspecified type diabetes mellitus with neurological manifestations, not stated as uncontrolled Hyperlipidemia Other and unspecified hyperlipidemia Essential hypertension Unspecified essential hypertension Other specified hypothyroidism Gastroesophageal reflux disease without esophagitis Esophageal reflux Moderate persistent asthma with acute exacerbation Right hip pain Pain in joint, pelvic region and thigh Need for prophylactic vaccination and inoculation against influenza Hypothyroidism due to acquired atrophy of thyroid Screening for viral disease Special screening examination for unspecified viral disease Metatarsalgia of both feet Enthesopathy of ankle and tarsus, unspecified Pain in both feet Pain in limb documented in this encounter Care Teams Silver Brazer Relationship Specialty Start Date End Date Robinson Howe MD [address] [place] [address] PCP - General Internal Medicine 11/03/14 04/13/20 Jesus Monterroso MD [address] [place] [address] PCP - General Internal Medicine 04/14/20 07/05/20 Abram Gardner MD [address] [place] [address] PCP - General Internal Medicine 07/06/20 12/24/20 Michael Gillette MD [address] [place] [address] PCP - General Internal Medicine 12/25/20 06/28/21 [facility], Pcp [address] [place] [address] PCP - General Internal Medicine 06/29/21 11/14/21 Napoleon Linda [address] [place] [address] PCP - General Internal Medicine 11/15/21 04/20/22 [facility], Pcp [address] [place] [address] PCP - General Internal Medicine 04/21/22 documented as of this encounter
--- OUTSIDE RECORDS SUMMARY | 2024-04-29 13:19 | XMS_ITS | Encounter Summary ---
Author Organization [facility] Address [address] [place] [address] Care Team Providers Care Network Lead Name Role Phone Robinson Howe MD Primary Care Provider + [phone] Jesus Monterroso MD Primary Care Provider Abram Flores MD Primary Care Provider Unavailab Michael Duvall MD Primary Care Provider Driss nguyen [facility], Pcp Primary Care Provider Unavailabl e Napoleon Linda Primary Care Provider [phone] [facility], Pcp Primary Care Provider Unavailabl e Reason for Visit * Reason Onset Date Comments Prior Authorization 08/11/2016 Encounter Details Date Type Department Care Team Description 08/11/2016 Telephone Adult [address] [id number] Robinson Howe MD [address] [place] [address] [phone] Prior Authorization Social History Tobacco Use Types Packs/Day Years [...] encounter Miscellaneous Notes * Telephone Encounter - Jeannie Plaza M.A. - 08/12/2016 10:25 AM EDT Not covered. At recent visit with she was told if not covered she could purchase the otc patch * Telephone Encounter - Shubham Ayala - 08/11/2016 2:39 PM EDT Pre Authorization for Medication-do not complete and send this encounter unless you have the fax from the pharmacy. Is this a Cover My Meds request: [place] of Medication Lidocaine Dose of Medication 5% patch How does patient take this med? Place one patch onto the skin for 12 hours a day What Pharmacy did the fax come from: [facility] Pharmacy fax #: not on fax [employer] Information from fax: What Prescription Plan does the patient have? na BIN/PCN if applicable: not on fax Cardholder ID:[id number] Person Code: not on fax Relationship Code: not on fax Help desk phone: not on fax documented in this encounter Plan of Treatment Not on file documented as of this encounter Visit Diagnoses Not on filedocumented in this encounter Care Teams Network Lead Relationship Specialty Start Date End Date Robinson Howe MD [address] [place] [address] PCP - General Internal Medicine 11/03/14 04/13/20 Jesus Monterroso MD [address] [place], [place] [phone] PCP - General Internal Medicine 04/14/20 07/05/20 Abram Gardner MD [address] [place] [address] 57741 PCP - General Internal Medicine 07/06/20 12/24/20 Michael Gillette MD [address] [place] [address] 7[address] PCP - General Internal Medicine 12/25/20 06/28/21 [facility], Pcp [address] [place], [place] [phone] PCP - General Internal Medicine 06/29/21 11/14/21 Napoleon Linda [address] [place] [address] PCP - General Internal Medicine 11/15/21 04/20/22 [facility], Pcp [address] [place] [address] 22382 PCP - General Internal Medicine 04/21/22 documented as of this encounter
--- OUTSIDE RECORDS SUMMARY | 2024-04-29 13:19 | XMS_ITS | Encounter Summary ---
Author Organization [facility] Address [address] [place] [address] Care Team Prov[address] Care Court Deputy Name Role Phone Robinson Howe MD Primary Care Provider + [phone] Jesus Monterroso MD Primary Care Provider Abram Flores MD Primary Care Provider Michael Hinojosa MD Primary Care Provider Driss nguyen [facility], Pcp Primary Care Provider Napoleon Mejia Primary Care Provider [facility], Pcp Primary Care Provider Maria T grace Encounter Details Date Type Department Care Team Description 09/25/2018 Release of Information Medical Records [address] [place] [address] Abstract, Provider Social History Tobacco Use Types [...] on filedocumented in this encounter Care Teams Court Deputy Relationship Specialty Start Date End Date Robinson Howe MD [address] [place] [address] 701[address] PCP - General Internal Medicine 11/03/14 04/13/20 Jesus Monterroso MD [address] [place] [address] 50119 PCP - General Internal Medicine 04/14/20 07/05/20 Abram Gardner MD [address] [place] [address] 37062 PCP - General Internal Medicine 07/06/20 12/24/20 Michael Gillette MD [address] [place] [address] 93693 PCP - General Internal Medicine 12/25/20 06/28/21 [facility], Pcp [address] [place], [place] [phone] PCP - General Internal Medicine 06/29/21 11/14/21 Napoleon Linda [address] [place] [address] 236[address] PCP - General Internal Medicine 11/15/21 04/20/22 [facility], Pcp [address] [place] [address] 567[address] PCP - General Internal Medicine 04/21/22 documented as of this encounter
--- OUTSIDE RECORDS SUMMARY | 2024-04-29 13:19 | XMS_ITS | Encounter Summary ---
Author Organization [facility] Address [address] [place] [address] Care Team Providers Care Child Care Team Lead Name Role Phone Ruddy Cruz MD Primary Care Provider Unavail able Robinson Howe MD Primary Care Provider + [phone] Jesus Monterroso MD Primary Care Provider Abram Flores MD Primary Care Provider Unavailab Michael Duvall MD Primary Care Provider Mariaelenavagabriel nguyen [facility], Pcp Primary Care Provider UnavailNapoleon White Primary Care Provider [phone] [facility], Pcp Primary Care Provider Unavailabl e Encounter Details Date Type Department Care Team Description 08/25/2014 Business Doc Medical Records [address] [place] [address] 92297 Abstract, Provider Social History Tobacco Use Types [...] on filedocumented in this encounter Care Teams Child Care Team Lead Relationship Specialty Start Date End Date Ruddy Cruz MD PCP - General Internal Medicine 12/19/13 11/02/14 Robinson Howe MD [address] [place] [address] [phone] PCP - General Internal Medicine 11/03/14 04/13/20 Jesus Monterroso MD [address] [place] [address] PCP - General Internal Medicine 04/14/20 07/05/20 Abram Gardner MD [address] [place] [address] 22948 PCP - General Internal Medicine 07/06/20 12/24/20 Michael Gillette MD [address] [place] [address] PCP - General Internal Medicine 12/25/20 06/28/21 [facility], Pcp [address] [place] [address] PCP - General Internal Medicine 06/29/21 11/14/21 Napoleon Linda [address] [place], [place] [phone] PCP - General Internal Medicine 11/15/21 04/20/22 [facility], Pcp [address] [place] [address] PCP - General Internal Medicine 04/21/22 documented as of this encounter
--- OUTSIDE RECORDS SUMMARY | 2024-04-29 13:19 | XMS_ITS | Encounter Summary ---
Author Organization [facility] Address [address] [place] [address] Care Team Providers Care Multi Spindle Operator Name Role Phone Louisa Machuca MD Primary Care Provider Unavailable Ruddy Cruz MD Primary Care Provider Unavail able Robinson Howe MD Primary Care Provider + [phone] Jesus Monterroso MD Primary Care Provider Abram Flores MD Primary Care Provider Unavailab Michael Duvall MD Primary Care Provider Driss nguyen [facility], Pcp Primary Care Provider UnavailNapoleon White Primary Care Provider [phone] [facility], Pcp Primary Care Provider Maria T grace Encounter Details Date Type Department Care Team Description 11/20/2013 Business Doc Medical Records [address] [place] [address] Abstract, Provider Social History Tobacco Use Types [...] on filedocumented in this encounter Care Teams Multi Spindle Operator Relationship Specialty Start Date End Date Louisa Machuca MD PCP - General Internal Medicine 07/17/13 Ruddy Cruz MD PCP - General Internal Medicine 12/19/13 11/02/14 Robinson Howe MD [address] [place] [address] PCP - General Internal Medicine 11/03/14 04/13/20 Jesus Monterroso MD [address] [place] [address] PCP - General Internal Medicine 04/14/20 07/05/20 Abram Gardner MD [address] [place] [address] PCP - General Internal Medicine 07/06/20 12/24/20 Michael Gillette MD [address] [place] [address] PCP - General Internal Medicine 12/25/20 06/28/21 [facility], Pcp [address] [place] [address] PCP - General Internal Medicine 06/29/21 11/14/21 Napoleon Linda [address] [place] [address] PCP - General Internal Medicine 11/15/21 04/20/22 [facility], Pcp [address] [place] [address] PCP - General Internal Medicine 04/21/22 documented as of this encounter
--- OUTSIDE RECORDS SUMMARY | 2024-04-29 13:19 | XMS_ITS | Encounter Summary ---
Author Organization [facility] Address [address] [place] [address] Care Team Providers Care Medicare Contact Specialist Name Role Phone Abram Gardner MD Primary Care Provider UnavailMichael Elmore MD Primary [facility] Primary Care Provider Napoleon Mejia Primary Care Provider [phone] [facility], Pcp Primary Care Provider Maria T grace Encounter Details Date Type Department Care Team Description 11/06/2020 Refill Adult [address] [address] Abram Gardner MD Social History Tobacco Use [...] on filedocumented in this encounter Care Teams Medicare Contact Specialist Relationship Specialty Start Date End Date Abram Gardner MD PCP - General Internal Medicine 07/06/20 12/24/20 Michael Gillette MD PCP - General Internal Medicine 12/25/20 06/28/21 [facility]cp PCP - General Internal Medicine 06/29/21 11/14/21 Napoleon Linda [address] [place] [address] PCP - General Internal Medicine 11/15/21 04/20/22 [facility]cp PCP - General Internal Medicine 04/21/22 documented as of this encounter
--- OUTSIDE RECORDS SUMMARY | 2024-04-29 13:19 | XMS_ITS | Encounter Summary ---
Author Organization [facility] Address [address] [place] [address] Care Team Providers Care Demolition Engineer Name Role Phone Robinson Howe MD Primary Care Provider + [phone] Jesus Monterroso MD Primary Care Provider Abram Flores MD Primary Care Provider Michael Hinojosa MD Primary Care Provider Driss nguyen [facility], Pcp Primary Care Provider Napoleon Mejia Primary Care Provider [phone] [facility], Pcp Primary Care Provider Maria T grace Encounter Details Date Type Department Care Team Description 05/05/2016 SCAN Medical Records [address] [place] [address] Abstract, Provider Social History Tobacco Use Types [...] on filedocumented in this encounter Care Teams Demolition Engineer Relationship Specialty Start Date End Date Robinson Howe MD [address] [place] [address]89 PCP - General Internal Medicine 11/03/14 04/13/20 Jesus Monterroso MD [address] [place] [address] PCP - General Internal Medicine 04/14/20 07/05/20 Abram Gardner MD [address] [place] [address] 6[address]99 PCP - General Internal Medicine 07/06/20 12/24/20 Michael Gillette MD [address] [place] [address] 73158 PCP - General Internal Medicine 12/25/20 06/28/21 [facility], Pcp [address] [place], [place] [phone] PCP - General Internal Medicine 06/29/21 11/14/21 Napoleon Linda [address] [place] [address] PCP - General Internal Medicine 11/15/21 04/20/22 [facility], Pcp [address] [place] [address] PCP - General Internal Medicine 04/21/22 documented as of this encounter
--- OUTSIDE RECORDS SUMMARY | 2024-04-29 13:19 | XMS_ITS | Encounter Summary ---
Author Organization [facility] Address [address] [place] [address] Care Team Providers Care General Distillery Worker Name Role Phone Robinson Howe MD Primary Care Provider + [phone] Jesus Monterroso MD Primary Care Provider Abram Flores MD Primary Care Provider Unavailab Michael Duvall MD Primary Care Provider Driss nguyen [facility], Pcp Primary Care Provider Unavailabl e Napoleon Linda Primary Care Provider [phone] [facility], Pcp Primary Care Provider Unavailabl e Reason for Visit * Reason Onset Date Comments Testing 06/28/2016 Encounter Details Date Type Department Care Team Description 06/28/2016 Telephone Radiology - [address] [address] Jerod Daniel PA-C [address] [place] [address] [phone] Testing Social History Tobacco Use Types Packs/Day [...] on filedocumented in this encounter Care Teams General Distillery Worker Relationship Specialty Start Date End Date Robinson Howe MD [address] [place] [address] PCP - General Internal Medicine 11/03/14 04/13/20 Jesus Monterroso MD [address] [place] [address] PCP - General Internal Medicine 04/14/20 07/05/20 Abram Gardner MD [address] [place] [address] PCP - General Internal Medicine 07/06/20 12/24/20 Michael Gillette MD [address] [place] [address] PCP - General Internal Medicine 12/25/20 06/28/21 [facility], Pcp [address] [place] [address] PCP - General Internal Medicine 06/29/21 11/14/21 Napoleon Linda [address] [place] [address] PCP - General Internal Medicine 11/15/21 04/20/22 [facility], Pcp [address] [place] [address] PCP - General Internal Medicine 04/21/22 documented as of this encounter
--- OUTSIDE RECORDS SUMMARY | 2024-04-29 13:19 | XMS_ITS | Encounter Summary ---
Author Organization [facility] Address [address] [place] [address] Care Team Providers Care Head Of Precision Targeting Name Role Phone Robinson Howe MD Primary Care Provider + [phone] Jesus Monterroso MD Primary Care Provider Abram Flores MD Primary Care Provider Michael Hinojosa MD Primary Care Provider Driss nguyen [facility], Pcp Primary Care Provider Napoleon Mejia Primary Care Provider [phone] [facility], Pcp Primary Care Provider Maria T grace Encounter Details Date Type Department Care Team Description 07/12/2018 Orders Only Allergy [facility] [address] [place] [address] Social History Tobacco Use Types [...] on filedocumented in this encounter Care Teams Head Of Precision Targeting Relationship Specialty Start Date End Date Robinson Howe MD [address] [place] [address] PCP - General Internal Medicine 11/03/14 04/13/20 Jesus Monterroso MD [address] [place] [address] 55168 PCP - General Internal Medicine 04/14/20 07/05/20 Abram Gardner MD [address] [place] [address] 99751 PCP - General Internal Medicine 07/06/20 12/24/20 Michael Gillette MD [address] [place] [address] 95607 PCP - General Internal Medicine 12/25/20 06/28/21 [facility], Pcp [address] [place], [place] [phone] PCP - General Internal Medicine 06/29/21 11/14/21 Napoleon Linda [address] [place] [address] PCP - General Internal Medicine 11/15/21 04/20/22 [facility], Pcp [address] [place] [address] PCP - General Internal Medicine 04/21/22 documented as of this encounter
--- OUTSIDE RECORDS SUMMARY | 2024-04-29 13:19 | XMS_ITS | Encounter Summary ---
Author Organization [facility] Address [address] [place] [address] Care Team Providers Care Film Vault Supervisor Name Role Phone Robinson Howe MD Primary Care Provider + [phone] Jesus Monterroso MD Primary Care Provider Abram Flores MD Primary Care Provider Michael Hinojosa MD Primary Care Provider Driss nguyen [facility], Pcp Primary Care Provider Napoleon Mejia Primary Care Provider [phone] [facility], Pcp Primary Care Provider Maria T grace Encounter Details Date Type Department Care Team Description 03/02/2017 Business Doc Medical Records [address] [place] [address] Abstract, Provider Social History Tobacco Use Types [...] filedocumented in this encounter Care Teams Film Vault Supervisor Relationship Specialty Start Date End Date Robinson Howe MD [address] [place] [address] PCP - General Internal Medicine 11/03/14 04/13/20 Jesus Monterroso MD [address] [place] [address] 11693 PCP - General Internal Medicine 04/14/20 07/05/20 Abram Gardner MD [address] [place] [address] 55047 PCP - General Internal Medicine 07/06/20 12/24/20 Michael Gillette MD [address] [place] [address]1024 PCP - General Internal Medicine 12/25/20 06/28/21 [facility] Pcp [address] [place], [place] [phone] PCP - General Internal Medicine 06/29/21 11/14/21 Napoleon Linda [address] [place] [address] PCP - General Internal Medicine 11/15/21 04/20/22 [facility], Pcp [address] [place] [address] PCP - General Internal Medicine 04/21/22 documented as of this encounter
--- OUTSIDE RECORDS SUMMARY | 2024-04-29 13:19 | XMS_ITS | Clinical Summary ---
Author Organization [facility] Address [address] [place] [address] [address] [place] [address] Care Team Providers Care Mental Health Coordinator Name Role Phone Unavailable Primary Care Provider [...] Description 03/15/2024 10:00 AM EST Office Visit [facility] [address] [place] [address] Madeline Baltazar Dental plaque (Primary Dx) from [...] Description 09/13/2024 3:00 PM EDT Office Visit [facility] [address] [place], [place] [phone] Delaney, Madeline [address] [place] [address] Health Maintenance Due Date Last Done Comments [...] Relevant to Health Maintenance Insurance DENTAL - [facility] Member Subscriber Plan / Payer (Ef fective 2017-Present) Name:Joanna Osman Relation to Subscriber:Self Name:Joanna Osman Payer ID:Not on file Group ID:[id number] Type:Not on file Address: [address] - [facility] - [facility]
--- OUTSIDE RECORDS SUMMARY | 2024-04-29 13:20 | XMS_ITS | Encounter Summary ---
Author Organization [facility] Address [address] [place] [address] Care Team Providers Care Test Evaluator Name Role Phone Louisa Machuca MD Primary Care Provider Unavailable Ruddy Cruz MD Primary Care Provider Unavail able Robinson Howe MD Primary Care Provider + [phone] Jesus Monterroso MD Primary Care Provider Abram Flores MD Primary Care Provider Unavailab Michael Duvall MD Primary Care Provider Driss nguyen [facility], Pcp Primary Care Provider UnavailNapoleon White Primary Care Provider [phone] [facility], Pcp Primary Care Provider Maria T grace Encounter Details Date Type Department Care Team Description 12/18/2013 Business Doc Medical Records [address] [place] [address] Abstract, Provider Social History Tobacco Use Types [...] on filedocumented in this encounter Care Teams Test Evaluator Relationship Specialty Start Date End Date Louisa Machuca MD PCP - General Internal Medicine 07/17/13 Ruddy Cruz MD PCP - General Internal Medicine 12/19/13 11/02/14 Robinson Howe MD [address] [place] [address] PCP - General Internal Medicine 11/03/14 04/13/20 Jesus Monterroso MD [address] [place] [address] PCP - General Internal Medicine 04/14/20 07/05/20 Abram Gardner MD [address] [place] [address] PCP - General Internal Medicine 07/06/20 12/24/20 Michael Gillette MD [address] [place] [address] PCP - General Internal Medicine 12/25/20 06/28/21 [facility], Pcp [address] [place] [address] PCP - General Internal Medicine 06/29/21 11/14/21 Napoleon Linda [address] [place] [address] PCP - General Internal Medicine 11/15/21 04/20/22 [facility], Pcp [address] [place] [address] PCP - General Internal Medicine 04/21/22 documented as of this encounter
--- OUTSIDE RECORDS SUMMARY | 2024-04-29 13:20 | XMS_ITS | Encounter Summary ---
Author Organization [facility] Address [address] [place] [address] Care Team Providers Care Sales Route Driver Name Role Phone Robinson Howe MD Primary Care Provider + [phone] Jesus Monterroso MD Primary Care Provider Abram Flores MD Primary Care Provider Michael Hinojosa MD Primary Care Provider Driss nguyen [facility], Pcp Primary Care Provider Napoleon Mejia Primary Care Provider [facility], Pcp Primary Care Provider Maria T grace Encounter Details Date Type Department Care Team Description 02/28/2018 Taxicab Starter Report Medical Records [address] [place] [address] Abstract, Provider Social History Tobacco Use Types [...] filedocumented in this encounter Care Teams Sales Route Driver Relationship Specialty Start Date End Date Robinson Howe MD [address] [place] [address] PCP - General Internal Medicine 11/03/14 04/13/20 Jesus Monterroso MD [address] [place] [address] PCP - General Internal Medicine 04/14/20 07/05/20 Abram Gardner MD [address] [place], [place] [address] PCP - General Internal Medicine 07/06/20 12/24/20 Michael Gillette MD [address] [place] [address] PCP - General Internal Medicine 12/25/20 06/28/21 [facility], Pcp [address] [place], [place] [phone] PCP - General Internal Medicine 06/29/21 11/14/21 Napoleon Linda [address] [place] [address] PCP - General Internal Medicine 11/15/21 04/20/22 [facility], Pcp [address] [place] [address] PCP - General Internal Medicine 04/21/22 documented as of this encounter
--- OUTSIDE RECORDS SUMMARY | 2024-04-29 13:20 | XMS_ITS | Encounter Summary ---
Author Organization [facility] Address [address] [place] [address] Care Team Providers Care Maintainer Sewer And Waterworks Name Role Phone Robinson Howe MD Primary Care Provider + [phone] Jesus Monterroso MD Primary Care Provider Abram Flores MD Primary Care Provider Unavailab Michael Duvall MD Primary Care Provider Unavagabriel nguyen [facility], Pcp Primary Care Provider UnavailNapoleon White Primary Care Provider [phone] [facility], Pcp Primary Care Provider Unavailguido e Encounter Details Date Type Department Care Team Description 02/08/2018 Orders Only Medical Records [address] [place] [address] Terrence Corral MD [address] [place] [phone] Social History Tobacco Use Types Packs/Day [...] Name Priority Date/Time Associated Diagnosis Comments OUTSIDE SLEEP STUDY Routine 02/05/2018 documented in this encounter Results * OUTSIDE SLEEP STUDY (02/05/2018) Narrative Authorizing Provider Result Sydnie Corral MD PULMONOLOG Y documented in this encounter Visit Diagnoses Not on filedocumented in this encounter Care Teams Maintainer Sewer And Waterworks Relationship Specialty Start Date End Date Robinson Howe MD [address] [place] [address] PCP - General Internal Medicine 11/03/14 04/13/20 Jesus Monterroso MD [address] [place] [address] PCP - General Internal Medicine 04/14/20 07/05/20 Abram Gardner MD [address] [place] [address] PCP - General Internal Medicine 07/06/20 12/24/20 Michael Gillette MD [address] [place] [address] PCP - General Internal Medicine 12/25/20 06/28/21 [facility], Pcp [address] [place] [address] PCP - General Internal Medicine 06/29/21 11/14/21 Napoleon Linda [address] [place] [address] PCP - General Internal Medicine 11/15/21 04/20/22 [facility], Pcp [address] [place] [address] PCP - General Internal Medicine 04/21/22 documented as of this encounter
--- OUTSIDE RECORDS SUMMARY | 2024-04-29 13:20 | XMS_ITS | Encounter Summary ---
Author Organization [facility] Address [address] [place] [address] Care Team Providers Care Shot Core Drill Operator Helper Name Role Phone Robinson Howe MD Primary Care Provider + [phone] Jesus Monterroso MD Primary Care Provider Abram Flores MD Primary Care Provider UnavailMichael Elmore MD Primary Care Provider Driss nguyen [facility], Pcp Primary Care Provider UnavailNapoleon White Primary Care Provider [phone] [facility], Pcp Primary Care Provider Maria T grace Encounter Details Date Type Department Care Team Description 03/11/2016 Orders Only Medical Records [address] [place] [address] Jerod Daniel PA-C [address] [place] [address] Social History Tobacco Use Types Packs/Day Years [...] on filedocumented in this encounter Care Teams Shot Core Drill Operator Helper Relationship Specialty Start Date End Date Robinson Howe MD [address] [place] [address] PCP - General Internal Medicine 11/03/14 04/13/20 Jesus Monterroso MD [address] [place] [address] PCP - General Internal Medicine 04/14/20 07/05/20 Abram Gardner MD [address] [place] [address] PCP - General Internal Medicine 07/06/20 12/24/20 Michael Gillette MD [address] [place] [address] PCP - General Internal Medicine 12/25/20 06/28/21 [facility], Pcp [address] [place] [address] PCP - General Internal Medicine 06/29/21 11/14/21 Napoleon Linda [address] [place] [address] PCP - General Internal Medicine 11/15/21 04/20/22 [facility], Pcp [address] [place] [address] PCP - General Internal Medicine 04/21/22 documented as of this encounter
--- OUTSIDE RECORDS SUMMARY | 2024-04-29 13:20 | XMS_ITS | Encounter Summary ---
Author Organization [facility] Address [address] [place] [address] Care Team Providers Care Color Maker Formulator Name Role Phone Louisa Machuca MD Primary Care Provider Unavailable Ruddy Cruz MD Primary Care Provider Unavail able Robinson Howe MD Primary Care Provider + [phone] Jesus Monterroso MD Primary Care Provider Abram Flores MD Primary Care Provider Unavailab Michael Duvall MD Primary Care Provider Mariaelenavagabriel nguyen [facility], Pcp Primary Care Provider UnavailNapoleon White Primary Care Provider [phone] [facility], Pcp Primary Care Provider Unavailguido grace Encounter Details Date Type Department Care Team Description 10/23/2013 Orders Only OBGYN - [address] [address] Kate Mai MD Social History Tobacco Use [...] on filedocumented in this encounter Care Teams Color Maker Formulator Relationship Specialty Start Date End Date Louisa Machuca MD PCP - General Internal Medicine 07/17/13 Ruddy Cruz MD PCP - General Internal Medicine 12/19/13 11/02/14 Robinson Howe MD [address] [place] [address] PCP - General Internal Medicine 11/03/14 04/13/20 Jesus Monterroso MD [address] [place] [address] PCP - General Internal Medicine 04/14/20 07/05/20 Abram Gardner MD [address] [place], [place] [id number] PCP - General Internal Medicine 07/06/20 12/24/20 Michael Gillette MD [address] [place] [address] PCP - General Internal Medicine 12/25/20 06/28/21 [facility], Pcp [address] [place] [address] PCP - General Internal Medicine 06/29/21 11/14/21 Napoleon Linda [address] [place] [address] PCP - General Internal Medicine 11/15/21 04/20/22 [facility], Pcp [address] [place] [address] PCP - General Internal Medicine 04/21/22 documented as of this encounter
== END 2024-04-29 12:48 | disposition home or self-care (01) ==
PROVIDERS: PCP Internal Medicine; Visit Provider Internal Medicine
DX: R19.4 Change in bowel habit (principal); K22.0 Achalasia of cardia; K21.9 Gastro-esophageal reflux disease without esophagitis
CPT/HCPCS: 99214

== ENCOUNTER → 2024-04-29 11:39 | Outpatient (BNVA) | payer OTHER, SELFPAY | PROVIDERS: PCP Internal Medicine; Visit Provider Internal Medicine | DX: R19.4 Change in bowel habit (principal); K21.9 Gastro-esophageal reflux disease without esophagitis; K22.0 Achalasia of cardia | CPT/HCPCS: 99212 ==

== ENCOUNTER 2024-05-16 07:42 | Outpatient (AMB) | payer OTHER, SELFPAY ==
--- NOTE | 2024-05-16 06:55 | A.OFFVIS_ITS ---
Intake Visit Reasons: Botox Questions Intake Note: Patient presents today for Botox questions Urology Medications: none Blood Thinner: aspirin PVR:0ml Java J2Ee Lead Required: Yes Java J2Ee Lead Name: [id number] Information Interpreted: non-clinical & clinical Accompanied by: Self / Same As Patient Allergies regadenoson [From Lexiscan] Adverse Reaction (Intermediate, Verified 05/16/24 07:46) Chest Pain Medication List - Last Reconciled 05/16/24 by Colton Ledesma MD amlodipine 5 mg PO DAILY ascorbic acid (vitamin C) 500 mg PO DAILY aspirin 81 mg PO DAILY azelastine 2 sprays intranasal BID 30 days [Bed pads As directed] blood-glucose meter (FreeStyle Lite Meter kit) test daily carvedilol 6.25 mg PO BID cefuroxime axetil 500 mg PO BID cetirizine (Zyrtec) 10 mg PO DAILY cholecalciferol (vitamin D3) 25 mcg PO DAILY CPAP (CPAP Machine/Device) As directed [DIABETIC SHOES As directed] fluticasone propionate 50 mcg/actuation 2 sprays intranasal DAILY 30 days zcnbesoypwt-podqprazg-tzjapbtm 200-62.5-25 mcg (Trelegy Ellipta) 1 inh inhalation DAILY 30 days hydrocortisone 2.5% 1 appl topical BID PRN [incontinence wipes As directed] levothyroxine 100 mcg PO DAILY losartan 50 mg PO DAILY Magic Mouthwash Diphen/Lido/Antacid 1:1:1 10 mL PO BID-TID PRN 3 days meclizine 50 mg PO BID memantine 28 mg PO DAILY 90 days [Metal Shower handles As directed] metformin 500 mg PO DAILY montelukast 10 mg PO BEDTIME nebulizers As directed pantoprazole 20 mg PO DAILY phenazopyridine (Azo Urinary Pain Relief) 199 mg (2 x 99.5 mg) PO BID [pull up As directed] Saccharomyces boulardii (Daily Probiotic (S. boulardii)) 5,000 mmu cells PO DAILY [sanitary pads kotex As directed] sennosides (Natural Senna Laxative) 17.2 mg (2 x 8.6 mg) PO DAILY 90 days sertraline mg PO DAILY simvastatin 20 mg PO BEDTIME [tumeric 1 tab PO DAILY] HPI Comments Details: 05/16/24--FU to discuss botox. I discussed the patient's current improvement in urinary symptoms following Botox treatment, noting her reduced urgency and infrequent incontinence episodes. We reviewed the initial Botox injection procedure and its benefits in reducing bladder spasms, which has led to symptomatic relief. Urinary Symptoms Review - Reduced urgency and rare urinary incontinence episodes - Occasional leakage with activities such as laughing - Significant improvement post-Botox treatment 01/10/24--Joanna is a 73-year-old female who is followed for overactive bladder symptoms and is status post Botox 100 units, performed in the ambulatory or setting 09/19/2023. She states she is doing much better since the Botox injection she has less urgency and is able to get to the bathroom without leaking on herself with occasional leakage associated with coughing or sneezing. She does wear a pad in case she sneezes. Otherwise she is very happy with the bladder control at this time. Plan continue Botox every 6 months. Repeat Botox 100 units in the office the end of February or March. Will start Macrobid and Pyridium 2 days prior to procedure. 08/11/23--here for urodynamics. CMG parameters detailed below. Interpretation: During the filling phase there was normal sensation, sensory urgency was noted, strong urge was noted significant detrusor contraction associated with leakage of entire volume filled; the patient was refilled and stress test was negative. There was a cough induced detrusor contraction noted. Findings consistent with decreased compliance and detrusor overactivity. EMG- Appropriate changes in the waveforms were noted through out the study. Discussed role of PO anticholinergics on bladder spasms, pt stated she stopped bladder medication due to constipation. Discussed alternative therapy options to include Botox bladder injection. Discussed risks and benefits to include but not limited to UTI, hematuria, urinary retention, need to repeat botox to maintain efficacy. 08/03/23--Joanna is [place] Citizen-speaking and a certified hot shot present. She was evaluated last by nurse practitioner Nicolette Joseph. She planes of urinary symptoms leaking associated with urgency and coughing. 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 She states she completed pelvic floor physical therapy and has been doing exercises with only mild improvement in her urinary symptoms. I have discussed that common causes for urinary incontinence include bladder spasms and pelvic floor weakness. The patient failed Myrbetriq and VESIcare. Discussed further evaluation if urodynamics. 12/29/22--Joanna is a pleasant 72-year-old [place] Citizen speaking female patient of Dr. Mitchell. She has a past medical history of neuropathy, allergies, asthma, and obstructive sleep apnea. She has a past medical history of chronic allergic rhinitis, bronchitis, asthma, and obstructive sleep apnea. She is being follow- up on today via telehealth for her lower urinary tract symptoms (urinary frequency, urinary urgency and episodes of incontinence if not near a bathroom). Telehealth appointment was made today due to clarification of medications. During last office visit patient had reported some improvement with Myrbetriq 25 mg daily however felt urinary symptoms could be better at which time recommendations were made for additional 5 mg of VESIcare daily. However, patient discusses today feeling Myrbetriq was not helpful and is feeling VESIcare is causing her constipation. Discussed at length potential side effects of overactive bladder medications. Discussed and stressed pelvic floor therapy. Previous workup has included a retroperitoneal ultrasound noting unremarkable imaging of kidneys and bladder. Discussed bladder triggers/irritants. She otherwise offers no issues or concerns at this time. [facility] Medical History Elevated cholesterol HTN (hypertension) Type 2 diabetes mellitus Cognitive dysfunction GERD (gastroesophageal reflux disease) Osteopenia Hypothyroid Chronic cough History of neuropathy Chronic ankle pain Non-rheumatic aortic stenosis Pleuritic chest pain Chronic allergic rhinitis Hypothyroidism Asthma-COPD overlap syndrome ALISA (obstructive sleep apnea) Asthma Surgical History History of esophagogastroduodenoscopy (EGD) History of colonoscopy with polypectomy (04/16/24) Hx of cystoscopy History of colonoscopy (~03/12/20) History of surgery on lower extremity History of back surgery History of thyroid surgery Family History Father Diabetes HTN (hypertension) Heart disease Mother Diabetes HTN (hypertension) Other Asthma Social History Household Members: None Housing: Apartment Alcohol intake: former Patient Tobacco Use Status: Former Tobacco user Tobacco use type: Cigarette Years Smoked: 10 years e-Cigarette/Vaping Use: Never Used Second Hand Smoke Exposure: Yes service: No Current occupational status: disabled Current occupational exposures/hazards: No Cognitive needs: Yes (cane) Hearing needs: No Vision needs: Yes Review of Systems Const All systems reviewed & are unremarkable except as noted in HPI and below Reports no additional complaints Eyes Reports no additional complaints ENT Reports no additional complaints Card Reports no additional complaints Resp Reports no additional complaints GI Reports no additional complaints Reports as per HPI Musc Reports no additional complaints Skin/Breast Reports system reviewed and no additional complaints, except as documented Neuro Reports no additional complaints Psych Reports no additional complaints Endo Reports no additional complaints Luis Alfredo/Lymph Reports no additional complaints Aller/Immun Reports no additional complaints Results AMB Urinalysis, Automated UA Leukoctes 15 Damien/uL Last Edit by Rachel Virgen on 05/16/24 09:04 UA Nitrite Negative Last Edit by Rachel Virgen on 05/16/24 09:04 UA Urobilinogen 0.2 mg/dL Last Edit by Rachel Virgen on 05/16/24 09:04 UA Protein 30 mg/dL Last Edit by Rachel Virgen on 05/16/24 09:04 UA pH 6.0 Last Edit by Rachel Virgen on 05/16/24 09:04 UA Blood 0 Lawrence/uL Last Edit by Rachel Virgen on 05/16/24 09:04 UA Specific [place] 1.025 Last Edit by Rachel Virgen on 05/16/24 09:04 UA Ketone Positive Last Edit by Rachel Virgen on 05/16/24 09:04 UA Bilirubin 2 mg/dL Last Edit by Rachel Virgen on 05/16/24 09:04 UA Glucose 0 mg/dL Last Edit by Rachel Virgen on 05/16/24 09:04 Results Reviewed Results Reviewed: Laboratory Last Values Urine pH (Auto) 6.0 05/16/24 08:10 Specific [place] (Auto) 1.025 05/16/24 08:10 Urine Protein (Auto) 30 mg/dL 05/16/24 08:10 Glucose (UA)(Auto) 0 mg/dL 05/16/24 08:10 Urine Ketones (Auto) Positive 05/16/24 08:10 Urine Blood (Auto) 0 Lawrence/uL 05/16/24 08:10 Urine Nitrite (Auto) Negative 05/16/24 08:10 Urine Bilirubin (Auto) 2 mg/dL 05/16/24 08:10 Urine Urobilinogen (Auto) 0.2 mg/dL 05/16/24 08:10 Leukocyte Esterase (Auto) 15 Damien/uL 05/16/24 08:10 Assessment & Plan Assessment & Plan (1) Urinary incontinence: Code(s): R32 - Unspecified urinary incontinence Category: Medical (2) Lower urinary tract symptoms: Code(s): R39.9 - Unspecified symptoms and signs involving the genitourinary system Category: Medical (3) OAB (overactive bladder): Code(s): N32.81 - Overactive bladder Category: Medical Plan Plan We will proceed with a repeat Botox injection 100 units to manage the patient's urinary incontinence as she experienced significant symptomatic improvement from the last procedure. The procedure will be conducted in-office next month. Antibiotics and pyridium will be sent to the pharmacy for use starting two days before the procedure to mitigate discomfort and infection risk. Orders: Orders AMB Urinalysis Automated Today Z13.9 - Encounter for screening, unspecified AMB Post Void Residual by ultrasound Today N39.46 - Mixed incontinence Medications: New cefuroxime axetil Please dispense with directions in [place] Citizen: start 2 days prior to scheduled office Botox procedure 500 mg PO BID 8 tabs 0RF phenazopyridine (Azo Urinary Pain Relief) Please dispense with directions in [place] Citizen: start 2 days prior to scheduled office Botox procedure 199 mg (2 x 99.5 mg) PO BID 12 tabs 0RF Patient Instructions: The patient had an opportunity to ask questions regarding treatment plan. The patient expressed understanding and agreement with the above treatment plan. The patient is aware they should contact our office by phone for worsening of their current condition or the appearance of new symptoms. Compliance is encouraged with any medications and followup testing that is ordered. It is a privilege to be allowed the opportunity to participate in the urologic care of your patient. If you have any questions or concerns regarding treatment for the above conditions please do not hesitate to contact me. The office telephone contact is [phone]. This note is constructed in part using voice recognition software. While every effort has been made to ensure accuracy small parts shaper operator errors may have been included. Yours sincerely, Colton Ledesma MD Scribe Plan - Not visible on output: Patient was informed and verbally consented to the use of an ambient scribe for clinic note documentation during this visit. Coding Level of Care Code Est Pt Level 4 (27874) Diagnoses Urinary incontinence R32 Lower urinary tract symptoms R39.9 OAB (overactive bladder) N32.81
--- OUTSIDE RECORDS SUMMARY | 2024-05-16 07:45 | XMS_ITS | Encounter Summary ---
Author Organization [facility] Address [address] [place] [address] Care Team Providers Care Dry Boss Name Role Phone Robinson Howe MD Primary Care Provider [phone] Jesus Monterroso MD Primary Care Provider Abram Flores MD Primary Care Provider Michael Hinojosa MD Primary Care Provider Driss nguyen [facility], Pcp Primary Care Provider Napoleon Mejia Primary Care Provider [phone] [facility], Pcp Primary Care Provider Maria T grace Encounter Details Date Type Department Care Team Description 03/02/2017 Business Doc Medical Records [address] [place] [address] Abstract, Provider Social History Tobacco Use Types [...] filedocumented in this encounter Care Teams Dry Boss Relationship Specialty Start Date End Date Robinson Howe MD [address] [place] [address] PCP - General Internal Medicine 11/03/14 04/13/20 Jesus Monterroso MD [address] [place] [address] PCP - General Internal Medicine 04/14/20 07/05/20 Abram Gardner MD [address] [place] [address] PCP - General Internal Medicine 07/06/20 12/24/20 Michael Gillette MD [address] [place] [address] PCP - General Internal Medicine 12/25/20 06/28/21 [facility], Pcp [address] [place], [place] [id number] PCP - General Internal Medicine 06/29/21 11/14/21 Napoleon Linda [address] [place] [address] PCP - General Internal Medicine 11/15/21 04/20/22 [facility], Pcp [address] [place] [address] PCP - General Internal Medicine 04/21/22 documented as of this encounter
--- OUTSIDE RECORDS SUMMARY | 2024-05-16 07:45 | XMS_ITS | Encounter Summary ---
Author Organization [facility] Address [address] [place] [address] Care Team Providers Care Executive Administrative Asst Name Role Phone Louisa Machuca MD Primary Care Provider Unavailable Ruddy Cruz MD Primary Care Provider Unavail able Robinson Howe MD Primary Care Provider + [phone] Jesus Monterroso MD Primary Care Provider Abram Flores MD Primary Care Provider Unavailab Michael Duvall MD Primary Care Provider Mariaelenavagabriel nguyen [facility], Pcp Primary Care Provider UnavailNapoleon White Primary Care Provider [phone] [facility] Pcp Primary Care Provider Unavailguido grace Encounter Details Date Type Department Care Team Description 11/20/2013 Orders Only Podiatry - [address] [address] Devan Durbin DPM Social History Tobacco Use [...] on filedocumented in this encounter Care Teams Executive Administrative Asst Relationship Specialty Start Date End Date Louisa Machuca MD PCP - General Internal Medicine 07/17/13 Ruddy Cruz MD PCP - General Internal Medicine 12/19/13 11/02/14 Robinson Howe MD [address] [place] [address] PCP - General Internal Medicine 11/03/14 04/13/20 Jesus Monterroso MD [address] [place] [address] PCP - General Internal Medicine 04/14/20 07/05/20 Abram Gardner MD [address] [place], [place] [id number] PCP - General Internal Medicine 07/06/20 12/24/20 Michael Gillette MD [address] [place] [address] PCP - General Internal Medicine 12/25/20 06/28/21 [facility], Pcp [address] [place] [address] PCP - General Internal Medicine 06/29/21 11/14/21 Napoleon Linda [address] [place] [address] PCP - General Internal Medicine 11/15/21 04/20/22 [facility], Pcp [address] [place] [address] PCP - General Internal Medicine 04/21/22 documented as of this encounter
--- OUTSIDE RECORDS SUMMARY | 2024-05-16 07:45 | XMS_ITS | Encounter Summary ---
Author Organization [facility] Address [address] [place] [address] Care Team Providers Care Electronics Technology Instructor Name Role Phone Ruddy Cruz MD Primary Care Provider Unavail able Robinson Howe MD Primary Care Provider [phone] Jesus Monterroso MD Primary Care Provider Abram Flores MD Primary Care Provider Unavailab Michael Duvall MD Primary Care Provider Mariaelenavagabriel nguyen [facility], Pcp Primary Care Provider UnavailNapoleon White Primary Care Provider [phone] [facility], Pcp Primary Care Provider Unavailabl e Encounter Details Date Type Department Care Team Description 08/25/2014 Business Doc Medical Records [address] [place] [id number] Abstract, Provider Social History Tobacco Use Types [...] on filedocumented in this encounter Care Teams Electronics Technology Instructor Relationship Specialty Start Date End Date Ruddy Cruz MD PCP - General Internal Medicine 12/19/13 11/02/14 Robinson Howe MD [address] [place] [id number] PCP - General Internal Medicine 11/03/14 04/13/20 Jesus Monterroso MD [address] [place] [address] PCP - General Internal Medicine 04/14/20 07/05/20 Abram Gardner MD [address] [place] [address] PCP - General Internal Medicine 07/06/20 12/24/20 Michael Gillette MD [address] [place] [address] PCP - General Internal Medicine 12/25/20 06/28/21 [facility], Pcp [address] [place] [address] PCP - General Internal Medicine 06/29/21 11/14/21 Napoleon Linda [address] [place], [place] [id number] PCP - General Internal Medicine 11/15/21 04/20/22 [facility], Pcp [address] [place] [address] PCP - General Internal Medicine 04/21/22 documented as of this encounter
--- OUTSIDE RECORDS SUMMARY | 2024-05-16 07:45 | XMS_ITS | Encounter Summary ---
Author Organization [facility] Address [address] [place] [address] Care Team Providers Care Residential Fee Appraiser Name Role Phone Ruddy rCuz MD Primary Care Provider Unavail able Robinson Howe MD Primary Care Provider + [phone] Jesus Monterroso MD Primary Care Provider Abram Flores MD Primary Care Provider Unavailab Michael Duvall MD Primary Care Provider Mariaelenavagabriel nguyen [facility], Pcp Primary Care Provider UnavailNapoleon White Primary Care Provider [phone] [facility], Pcp Primary Care Provider Unavailabl e Encounter Details Date Type Department Care Team Description 09/11/2014 Business Doc Medical Records [address] [place] [id number] Abstract, Provider Social History Tobacco Use Types [...] on filedocumented in this encounter Care Teams Residential Fee Appraiser Relationship Specialty Start Date End Date Ruddy Cruz MD PCP - General Internal Medicine 12/19/13 11/02/14 Robinson Howe MD [address] [place] [id number] PCP - General Internal Medicine 11/03/14 04/13/20 Jesus Monterroso MD [address] [place] [address] PCP - General Internal Medicine 04/14/20 07/05/20 Abram Gardner MD [address] [place] [address] PCP - General Internal Medicine 07/06/20 12/24/20 Michael Gillette MD [address] [place] [address] PCP - General Internal Medicine 12/25/20 06/28/21 [facility], Pcp [address] [place] [address] PCP - General Internal Medicine 06/29/21 11/14/21 Napoleon Linda [address] [place], [place] [phone] PCP - General Internal Medicine 11/15/21 04/20/22 [facility], Pcp [address] [place] [address] PCP - General Internal Medicine 04/21/22 documented as of this encounter
--- OUTSIDE RECORDS SUMMARY | 2024-05-16 07:45 | XMS_ITS | Encounter Summary ---
Author Organization [facility] Address [address] [place] [address] Care Team Providers Care Dental Assistant Teacher Name Role Phone Robinson Howe MD Primary Care Provider + [phone] Jesus Monterroso MD Primary Care Provider Abram Flores MD Primary Care Provider Michael Hinojosa MD Primary Care Provider Driss nguyen [facility], Pcp Primary Care Provider Napoleon Mejia Primary Care Provider [phone] [facility], Pcp Primary Care Provider Maria T grace Encounter Details Date Type Department Care Team Description 10/30/2015 Business Doc Medical Records [address] [place] [address] 11718 Abstract, Provider Social History Tobacco Use Types [...] on filedocumented in this encounter Care Teams Dental Assistant Teacher Relationship Specialty Start Date End Date Robinson Howe MD [address] [place] [address]20 PCP - General Internal Medicine 11/03/14 04/13/20 Jesus Monterroso MD [address] [place] [address] 63203 PCP - General Internal Medicine 04/14/20 07/05/20 Abram Gardner MD [address] [place] [address] 16459 PCP - General Internal Medicine 07/06/20 12/24/20 Michael Gillette MD [address] [place] [address] 09069 PCP - General Internal Medicine 12/25/20 06/28/21 [facility], Pcp [address] [place], [place] [phone] PCP - General Internal Medicine 06/29/21 11/14/21 Napoleon Linda [address] [place] [address] 19413 PCP - General Internal Medicine 11/15/21 04/20/22 [facility], Pcp [address] [place] [address] 9[address]28 PCP - General Internal Medicine 04/21/22 documented as of this encounter
--- OUTSIDE RECORDS SUMMARY | 2024-05-16 07:45 | XMS_ITS | Encounter Summary ---
Author Organization [facility] Address [address] [place] [address] Care Team Providers Care Interventional Sale Consultant Name Role Phone Abram Gardner MD Primary Care Provider Michael Hinojosa MD Primary Care Provider Driss nguyen [facility], Pcp Primary Care Provider Napoleon Mejia Primary Care Provider [phone] [facility], Pcp Primary Care Provider Maria T grace Encounter Details Date Type Department Care Team Description 10/29/2020 Dredge Pipe Operator Report Medical Records [address] [place] [address] Osmar Ayala MD Social History Tobacco Use [...] on filedocumented in this encounter Care Teams Interventional Sale Consultant Relationship Specialty Start Date End Date Abram Gardner MD PCP - General Internal Medicine 07/06/20 12/24/20 Michael Gillette MD PCP - General Internal Medicine 12/25/20 06/28/21 [facility], Pcp PCP - General Internal Medicine 06/29/21 11/14/21 Napoleon Linda [address] [place] [address] PCP - General Internal Medicine 11/15/21 04/20/22 [facility], Pcp PCP - General Internal Medicine 04/21/22 documented as of this encounter
--- OUTSIDE RECORDS SUMMARY | 2024-05-16 07:45 | XMS_ITS | Encounter Summary ---
Author Organization [facility] Address [address] [place] [address] Care Team Providers Care Detective Supervisor Name Role Phone Robinson Howe MD Primary Care Provider + [phone] Jesus Monterroso MD Primary Care Provider Abram Flores MD Primary Care Provider Unavailab Michael Duvall MD Primary Care Provider Driss nguyen [facility], Pcp Primary Care Provider Unavailabl Napoleon Ramirez Primary Care Provider [phone] [facility], Pcp Primary Care Provider Unavailabl e Reason for Visit * Reason Onset Date Comments Testing 06/02/2016 MRI lower extrem ity other than JT CPT-26245 Encounter Details Date Type Department Care Team Description 06/02/2016 Telephone Adult [address] [id number] Robinson Howe MD [address] [place] [address] [id number] Testing (MRI lower extremity other than JT [id number]) Social History Tobacco Use Types Packs/Day Years [...] encounter Miscellaneous Notes * Telephone Encounter - Sherron Francis - 06/02/2016 4:10 PM EDT Order faxed to [facility] they will contact patient with appointment information. Notification letter mailed to patient * Telephone Encounter - Alejandra Rasmussenrar - 06/02/2016 1:45 PM EDT Medicare/Medicaid No auth required 06/02/16-06/02/17 CPT-24860 [facility] Sent to [facility] for scheduling documented in this encounter Plan of Treatment Not on file documented as of this encounter Visit Diagnoses Not on filedocumented in this encounter Care Teams Detective Supervisor Relationship Specialty Start Date End Date Robinson Howe MD [address] [place] [address] PCP - General Internal Medicine 11/03/14 04/13/20 Jesus Monterroso MD [address] [place] [address] PCP - General Internal Medicine 04/14/20 07/05/20 Abram Gardner MD [address] [place] [address]50 PCP - General Internal Medicine 07/06/20 12/24/20 Michael Gillette MD [address] [place] [address] PCP - General Internal Medicine 12/25/20 06/28/21 [facility], Pcp [address] [place], [place] [phone] PCP - General Internal Medicine 06/29/21 11/14/21 Napoleon Linda [address] [place] [address] PCP - General Internal Medicine 11/15/21 04/20/22 [facility], Pcp [address] [place] [address] PCP - General Internal Medicine 04/21/22 documented as of this encounter
--- OUTSIDE RECORDS SUMMARY | 2024-05-16 07:45 | XMS_ITS | Encounter Summary ---
Author Organization [facility] Address [address] [place] [address] Care Team Providers Care Road Test Examiner Name Role Phone Robinson Howe MD Primary Care Provider + [phone] Jesus Monterroso MD Primary Care Provider Abram Flores MD Primary Care Provider Unavailab Michael Duvall MD Primary Care Provider Driss nguyen [facility], Pcp Primary Care Provider Unavailabl Napoleon Ramirez Primary Care Provider [phone] [facility], Pcp Primary Care Provider Unavailabl e Reason for Visit * Reason Onset Date Comments Sleep Study 10/30/2018 Encounter Details Date Type Department Care Team Description 10/30/2018 Telephone Pediatrics - [address] [address] Meredith Mcdonald FNP [address] [place] [address] 52972 Sleep Study Social History Tobacco Use Types [...] on filedocumented in this encounter Care Teams Road Test Examiner Relationship Specialty Start Date End Date Robinson Howe MD [address] [place] [address] PCP - General Internal Medicine 11/03/14 04/13/20 Jesus Monterroso MD [address] [place] [address]115 PCP - General Internal Medicine 04/14/20 07/05/20 Abram Gardner MD [address] [place] [address] 50347 PCP - General Internal Medicine 07/06/20 12/24/20 Michael Gillette MD [address] [place] [address] PCP - General Internal Medicine 12/25/20 06/28/21 [facility], Pcp [address] [place] [address] 57[address] PCP - General Internal Medicine 06/29/21 11/14/21 Napoleon Linda [address] [place] [address] PCP - General Internal Medicine 11/15/21 04/20/22 [facility], Pcp [address] [place] [address] PCP - General Internal Medicine 04/21/22 documented as of this encounter
--- OUTSIDE RECORDS SUMMARY | 2024-05-16 07:45 | XMS_ITS | Encounter Summary ---
Author Organization [facility] Address [address] [place] [address] Care Team Providers Care State Farm Agent Team Member Name Role Phone Ruddy Cruz MD Primary Care Provider Unavail able Robinson Howe MD Primary Care Provider + [phone] Jesus Monterroso MD Primary Care Provider Abram Flores MD Primary Care Provider Unavailab Michael Duvall MD Primary Care Provider Mariaelenavagabriel nguyen [facility], Pcp Primary Care Provider UnavailNapoleon White Primary Care Provider [phone] [facility] Primary Care Provider Unavailabl e Encounter Details Date Type Department Care Team Description 07/24/2014 Business Doc Medical Records [address] [place] [address] Abstract, Provider Social History Tobacco Use Types [...] on filedocumented in this encounter Care Teams State Farm Agent Team Member Relationship Specialty Start Date End Date Ruddy Cruz MD PCP - General Internal Medicine 12/19/13 11/02/14 Robinson Howe MD [address] [place] [address] [phone] PCP - General Internal Medicine 11/03/14 04/13/20 Jesus Monterroso MD [address] [place] [address] PCP - General Internal Medicine 04/14/20 07/05/20 Abram Gardner MD [address] [place] [address] 18098 PCP - General Internal Medicine 07/06/20 12/24/20 Michael Gillette MD [address] [place] [address] PCP - General Internal Medicine 12/25/20 06/28/21 [facility] [address] [place] [address] PCP - General Internal Medicine 06/29/21 11/14/21 Napoleon Linda [address] [place], [place] [phone] PCP - General Internal Medicine 11/15/21 04/20/22 [facility]cp [address] [place] [address] PCP - General Internal Medicine 04/21/22 documented as of this encounter
--- OUTSIDE RECORDS SUMMARY | 2024-05-16 07:45 | XMS_ITS | Encounter Summary ---
Author Organization [facility] Address [address] [place] [address] Care Team Providers Care Header Setup Operator Name Role Phone Robinson Howe MD Primary Care Provider + [phone] Jesus Monterroso MD Primary Care Provider Abram Flores MD Primary Care Provider Unavailab Michael Duvall MD Primary Care Provider Driss nguyen [facility], Pcp Primary Care Provider UnavailNapoleon White Primary Care Provider [phone] [facility], Pcp Primary Care Provider Unavailabl e Reason for Visit * Reason Comments E-prescribe Rx Request Encounter Details Date Type Department Care Team Description 04/24/2019 Refill Adult Medicine [address] [address] Jerod Daniel PA-C [address] [place] [address]493 E-prescribe Rx Request Social History Tobacco Use [...] N/A Patients current insurance carrier is: [facility] / Plan: HMO [facility] [id number] / Product Type: HMO [id number] documented in this encounter Plan of Treatment [...] reflux documented in this encounter Care Teams Header Setup Operator Relationship Specialty Start Date End Date Robinson Howe MD [address] [place] [address] PCP - General Internal Medicine 11/03/14 04/13/20 Jesus Monterroso MD [address] [place] [address] PCP - General Internal Medicine 04/14/20 07/05/20 Abram Gardner MD [address] [place], [place] [phone] PCP - General Internal Medicine 07/06/20 12/24/20 Michael Gillette MD [address] [place] [address] PCP - General Internal Medicine 12/25/20 06/28/21 [facility], Pcp [address] [place] [address] PCP - General Internal Medicine 06/29/21 11/14/21 Napoleon Linda [address] [place] [address] PCP - General Internal Medicine 11/15/21 04/20/22 [facility], Pcp [address] [place], [place] [phone] PCP - General Internal Medicine 04/21/22 documented as of this encounter
--- OUTSIDE RECORDS SUMMARY | 2024-05-16 07:45 | XMS_ITS | Encounter Summary ---
Author Organization [facility] Address [address] [place] [address] Care Team Providers Care Leaf Binner Name Role Phone Robinson Howe MD Primary Care Provider + [phone] Jesus Monterroso MD Primary Care Provider Abram Flores MD Primary Care Provider Michael Hinojosa MD Primary Care Provider Driss nguyen [facility], Pcp Primary Care Provider Napoleon Mejia Primary Care Provider [phone] [facility], Pcp Primary Care Provider Maria T grace Encounter Details Date Type Department Care Team Description 08/07/2016 Release of Information Medical Records [address] [place] [address] 15010 Abstract, Provider Social History Tobacco Use Types [...] on filedocumented in this encounter Care Teams Leaf Binner Relationship Specialty Start Date End Date Roibnson Howe MD [address] [place] [address] PCP - General Internal Medicine 11/03/14 04/13/20 Jesus Monterroso MD [address] [place] [address] 32884 PCP - General Internal Medicine 04/14/20 07/05/20 Abram Gardner MD [address] [place] [address] 19747 PCP - General Internal Medicine 07/06/20 12/24/20 Michael Gillette MD [address] [place] [address] 66769 PCP - General Internal Medicine 12/25/20 06/28/21 [facility], Pcp [address] [place], [place] [phone] PCP - General Internal Medicine 06/29/21 11/14/21 Napoleon Linda [address] [place] [address] PCP - General Internal Medicine 11/15/21 04/20/22 [facility], Pcp [address] [place] [address] PCP - General Internal Medicine 04/21/22 documented as of this encounter
--- OUTSIDE RECORDS SUMMARY | 2024-05-16 07:45 | XMS_ITS | Encounter Summary ---
Author Organization [facility] Address [address] [place] [address] Care Team Providers Care Mission Assessment Specialist Name Role Phone Michael Gillette MD Primary Care Provider Driss nguyen [facility], Pcp Primary Care Provider Napoleon Mejia Primary Care Provider [phone] [facility], Pcp Primary Care Provider Unavailabl e Reason for Visit * Reason Comments E-prescribe Rx Request Encounter Details Date Type Department Care Team Description 03/28/2021 Refill Adult Medicine [address] [address] Jerod Daniel PA-C [address] [place] [address] [phone] E-prescribe Rx Request Social History Tobacco Use [...] on filedocumented in this encounter Care Teams Mission Assessment Specialist Relationship Specialty Start Date End Date Michael Gillette MD PCP - General Internal Medicine 12/25/20 06/28/21 [facility] Pcp PCP - General Internal Medicine 06/29/21 11/14/21 [place] [address] PCP - General Internal Medicine 11/15/21 04/20/22 [facility], Pcp PCP - General Internal Medicine 04/21/22 documented as of this encounter
--- OUTSIDE RECORDS SUMMARY | 2024-05-16 07:45 | XMS_ITS | Encounter Summary ---
Author Organization [facility] Address [address] [place] [address] Care Team Providers Care Aviation Maintenance Instructor Name Role Phone Robinson Howe MD Primary Care Provider + [phone] Jesus Monterroso MD Primary Care Provider Abram Flores MD Primary Care Provider Unavailab Michael Duvall MD Primary Care Provider Driss nguyen [facility], Pcp Primary Care Provider Unavailabl Napoleon Ramirez Primary Care Provider [phone] [facility], Pcp Primary Care Provider Unavailabl e Reason for Visit * Reason Onset Date Comments Letter 02/02/2016 FYI... Pt will n eed SP translation. Encounter Details Date Type Department Care Team Description 02/02/2016 Telephone Adult Medicine [address] [phone] Robinson Howe MD [address] [place] [address] [phone] Letter (FYI... Pt will need SP translation.) [...] (GIANCARLO) who is with Pt who is dominican speaking. Pt c/o right lower leg pain [...] able to ambulate with steady gate. 02/04/16 ([facility]) 9:00 AM 30 min Jerod Daniel PA-C [facility]IVKA Bowman Advised home care following the leg [...] nurse regarding the information below. Daughter speaks Belarusian. Please contact Kaleigh @ [phone]. * Telephone Encounter - Stephanie Camp - 02/02/2016 6:48 PM EST Spoke with Pt who c/o right lower leg pain for several months. Reports she was seen here for it in the past and had a negative sonogram . Hx shows Pt was seen and evaluated for right calf pain on 01/01/16 with negative US for DVT. Pt is primarily dominican speaking and advised I would call back shortly with an Life Educator service. Verbalized understanding and agreed with plan. Pt is dominican speaking only. Interpretor service used via [employer]. Interpretor # [id number] assisted with call. Phone call returned, no answer, left message to return call. * Telephone Encounter - Clara ClancyvedoYangDe - 02/02/2016 4:23 PM EST Letter requested for: Pt is looking to move closer to home/family Reason for letter: Att: [employer] Specific notations needed in body of letter: Pt feels depressed living far away in [place] and would like a letter stateting that by moving closer to home near family will help improve her feeling of depression Date needed for completion: As soon as possible When completed: Will nut picker-call when completed: documented in this encounter Plan of Treatment Not on file documented as of this encounter Visit Diagnoses Not on filedocumented in this encounter Care Teams Aviation Maintenance Instructor Relationship Specialty Start Date End Date Robinson Howe MD [address] [place] [address] PCP - General Internal Medicine 11/03/14 04/13/20 Jesus Monterroso MD [address] [place] [address] PCP - General Internal Medicine 04/14/20 07/05/20 Abram Gardner MD [address] [place] [address] PCP - General Internal Medicine 07/06/20 12/24/20 Michael Gillette MD [address] [place] [address] 41909 PCP - General Internal Medicine 12/25/20 06/28/21 [facility], Pcp [address] [place] [address] PCP - General Internal Medicine 06/29/21 11/14/21 Napoleon Linda [address] [place], [place] [phone] PCP - General Internal Medicine 11/15/21 04/20/22 [facility], Pcp [address] [place] [address] ANTONIO Bowman [address] PCP - General Internal Medicine 04/21/22 documented as of this encounter
--- OUTSIDE RECORDS SUMMARY | 2024-05-16 07:45 | XMS_ITS | Encounter Summary ---
Author Organization [facility] Address [address] [place] [address] Care Team Providers Care Ob Scrub Tech Name Role Phone Robinson Howe MD Primary Care Provider [phone] Jesus Monterroso MD Primary Care Provider Abram Flores MD Primary Care Provider Michael Hinojosa MD Primary Care Provider Driss nguyen [facility], Pcp Primary Care Provider Napoleon Mejia Primary Care Provider [phone] [facility], Pcp Primary Care Provider Maria T grace Encounter Details Date Type Department Care Team Description 09/25/2018 Release of Information Medical Records [address] [place] [address] 87105 Abstract, Provider Social History Tobacco Use Types [...] on filedocumented in this encounter Care Teams Ob Scrub Tech Relationship Specialty Start Date End Date Robinson Howe MD [address] [place] [address] PCP - General Internal Medicine 11/03/14 04/13/20 Jesus Monterroso MD [address] [place] [address] 30169 PCP - General Internal Medicine 04/14/20 07/05/20 Abram Gardner MD [address] [place] [address] 53429 PCP - General Internal Medicine 07/06/20 12/24/20 Michael Gillette MD [address] [place] [address] 06872 PCP - General Internal Medicine 12/25/20 06/28/21 [facility], Pcp [address] [place], [place] [phone] PCP - General Internal Medicine 06/29/21 11/14/21 Napoleon Linda [address] [place] [address] PCP - General Internal Medicine 11/15/21 04/20/22 [facility], Pcp [address] [place] [address] PCP - General Internal Medicine 04/21/22 documented as of this encounter
--- OUTSIDE RECORDS SUMMARY | 2024-05-16 07:45 | XMS_ITS | Encounter Summary ---
Author Organization [facility] Address [address] [place] [address] Care Team Providers Care Logistics Lead Name Role Phone Ruddy Cruz MD Primary Care Provider Unavail able Robinson Howe MD Primary Care Provider [phone] Jesus Monterroso MD Primary Care Provider Abram Flores MD Primary Care Provider Unavailab Michael Duvall MD Primary Care Provider Mariaelenavagabriel nguyen [facility], Pcp Primary Care Provider UnavailNapoleon White Primary Care Provider [phone] [facility], Pcp Primary Care Provider Unavailabl e Encounter Details Date Type Department Care Team Description 05/02/2014 Transfer Records Medical Records [address] [place] [id number] [place] [address] [phone] Social History Tobacco Use Types Packs/Day Years [...] on filedocumented in this encounter Care Teams Logistics Lead Relationship Specialty Start Date End Date Ruddy Cruz MD PCP - General Internal Medicine 12/19/13 11/02/14 Robinson Howe MD [address] [place] [address] PCP - General Internal Medicine 11/03/14 04/13/20 Jesus Monterroso MD [address] [place] [address] PCP - General Internal Medicine 04/14/20 07/05/20 Abram Gardner MD [address] [place] [address] PCP - General Internal Medicine 07/06/20 12/24/20 Michael Gillette MD [address] [place] [address] PCP - General Internal Medicine 12/25/20 06/28/21 [facility], Pcp [address] [place] [address] PCP - General Internal Medicine 06/29/21 11/14/21 Napoleon Linda [address] [place] [address] PCP - General Internal Medicine 11/15/21 04/20/22 [facility], Pcp [address] [place] [address] PCP - General Internal Medicine 04/21/22 documented as of this encounter
--- OUTSIDE RECORDS SUMMARY | 2024-05-16 07:45 | XMS_ITS | Encounter Summary ---
Author Organization [facility] Address [address] [place] [address] Care Team Providers Care Right Of Way Man Name Role Phone Robinson Howe MD Primary Care Provider + [phone] Jesus Monterroso MD Primary Care Provider Abram Flores MD Primary Care Provider Michael Hinojosa MD Primary Care Provider Driss nguyen [facility], Pcp Primary Care Provider Napoleon Mejia Primary Care Provider [phone] [facility], Pcp Primary Care Provider Maria T grace Encounter Details Date Type Department Care Team Description 06/07/2016 Business Doc Medical Records [address] [place] [address]88 Abstract, Provider Social History Tobacco Use Types [...] this encounter Care Teams Right Of Way Man Relationship Specialty Start Date End Date Robinson Howe MD [address] [place] [address] PCP - General Internal Medicine 11/03/14 04/13/20 Jesus Monterroso MD [address] [place] [address] PCP - General Internal Medicine 04/14/20 07/05/20 Abram Gardner MD [address] [place] [address] PCP - General Internal Medicine 07/06/20 12/24/20 Michael Gillette MD [address] [place] [address] PCP - General Internal Medicine 12/25/20 06/28/21 [facility], Pcp [address] [place], [place] [phone] PCP - General Internal Medicine 06/29/21 11/14/21 Napoleon Linda [address] [place] [address] PCP - General Internal Medicine 11/15/21 04/20/22 [facility], Pcp [address] [place] [address] PCP - General Internal Medicine 04/21/22 documented as of this encounter
--- OUTSIDE RECORDS SUMMARY | 2024-05-16 07:45 | XMS_ITS | Encounter Summary ---
Author Organization [facility] Address [address] [place] [address] Care Team Providers Care Career Placement Services Counselor Name Role Phone Robinson Howe MD Primary Care Provider + [phone] Jesus Monterroso MD Primary Care Provider Abram Flores MD Primary Care Provider Michael Hinojosa MD Primary Care Provider Driss nguyen [facility]cp Primary Care Provider Napoleon Mejia Primary Care Provider [phone] [facility] Primary Care Provider Maria T grace Encounter Details Date Type Department Care Team Description 08/15/2018 [place] Report Medical Records [address] [place] [address] Becky Dolan MD Social History Tobacco Use [...] on filedocumented in this encounter Care Teams Career Placement Services Counselor Relationship Specialty Start Date End Date Robinson Howe MD [address] [place] [address] PCP - General Internal Medicine 11/03/14 04/13/20 Jesus Monterroso MD [address] [place] [address] PCP - General Internal Medicine 04/14/20 07/05/20 Abram Gardner MD [address] [place] [address] PCP - General Internal Medicine 07/06/20 12/24/20 Michael Gillette MD [address] [place] [address]64 PCP - General Internal Medicine 12/25/20 06/28/21 [facility]cp [address] [place], [place] [phone] PCP - General Internal Medicine 06/29/21 11/14/21 Napoleon Linda [address] [place] [address] PCP - General Internal Medicine 11/15/21 04/20/22 [facility] Pcp [address] [place] [address] PCP - General Internal Medicine 04/21/22 documented as of this encounter
--- OUTSIDE RECORDS SUMMARY | 2024-05-16 07:45 | XMS_ITS | Encounter Summary ---
Author Organization [facility] Address [address] [place] [address] Care Team Providers Care Pedigree Tracer Name Role Phone Robinson Howe MD Primary Care Provider + [phone] Jesus Monterroso MD Primary Care Provider Abram Flores MD Primary Care Provider Unavailab Michael Duvall MD Primary Care Provider Driss nguyen [facility], Pcp Primary Care Provider UnavailNapoleon White Primary Care Provider [phone] [facility], Pcp Primary Care Provider Unavailguido e Encounter Details Date Type Department Care Team Description 03/03/2020 Refill Gastroenterology - [place] [address] [facility] [address] [place] [id number] Tien Xiong MD [address] [facility] [address] [place] [address] Social History Tobacco Use Types Packs/Day Years [...] on filedocumented in this encounter Care Teams Pedigree Tracer Relationship Specialty Start Date End Date Robinson Howe MD [address] [place] [address] PCP - General Internal Medicine 11/03/14 04/13/20 Jesus Monterroso MD [address] [place] [address] PCP - General Internal Medicine 04/14/20 07/05/20 Abram Gardner MD [address] [place] [address] PCP - General Internal Medicine 07/06/20 12/24/20 Michael Gillette MD [address] [place] [address] PCP - General Internal Medicine 12/25/20 06/28/21 [facility], Pcp [address] [place] [address] PCP - General Internal Medicine 06/29/21 11/14/21 Napoleon Linda [address] [place] [address] PCP - General Internal Medicine 11/15/21 04/20/22 [facility], Pcp [address] [place] [address] PCP - General Internal Medicine 04/21/22 documented as of this encounter
--- OUTSIDE RECORDS SUMMARY | 2024-05-16 07:45 | XMS_ITS | Encounter Summary ---
Author Organization [facility] Address [address] [place] [address] Care Team Providers Care Campus Administrative Assistant Name Role Phone Robinson Howe MD Primary Care Provider + [phone] Jesus Monterroso MD Primary Care Provider Abram Flores MD Primary Care Provider Michael Hinojosa MD Primary Care Provider Driss nguyen [facility], Pcp Primary Care Provider Napoleon Mejia Primary Care Provider [phone] [facility], Pcp Primary Care Provider Maria T grace Encounter Details Date Type Department Care Team Description 05/05/2016 SCAN Medical Records [address] [place] [id number] Abstract, Provider Social History Tobacco Use Types [...] on filedocumented in this encounter Care Teams Campus Administrative Assistant Relationship Specialty Start Date End Date Robinson Howe MD [address] [place] [address] PCP - General Internal Medicine 11/03/14 04/13/20 Jessu Monterroso MD [address] [place] [address]696 PCP - General Internal Medicine 04/14/20 07/05/20 Abram Gardner MD [address] [place] [address] PCP - General Internal Medicine 07/06/20 12/24/20 Michael Gillette MD [address] [place] [address] 26534 PCP - General Internal Medicine 12/25/20 06/28/21 [facility], Pcp [address] [place], [place] [phone] PCP - General Internal Medicine 06/29/21 11/14/21 Napoleon Linda [address] [place] [address] PCP - General Internal Medicine 11/15/21 04/20/22 [facility], Pcp [address] [place] [address] PCP - General Internal Medicine 04/21/22 documented as of this encounter
--- OUTSIDE RECORDS SUMMARY | 2024-05-16 07:45 | XMS_ITS | Encounter Summary ---
Author Organization [facility] Address [address] [place] [address] Care Team Providers Care Sales Utility Representative Name Role Phone Robinson Howe MD Primary Care Provider + [phone] Jesus Monterroso MD Primary Care Provider Abram Flores MD Primary Care Provider UnavailMichael Elmore MD Primary Care Provider Driss nguyen [facility], Pcp Primary Care Provider UnavailNapoleon White Primary Care Provider [phone] [facility], Pcp Primary Care Provider Maria T grace Encounter Details Date Type Department Care Team Description 12/02/2019 Orders Only Adult Medicine [address] [address] Jordan Soto, DAINA Cough (Primary Dx) Social [...] Primary documented in this encounter Care Teams Sales Utility Representative Relationship Specialty Start Date End Date Robinson Howe MD [address] [place] [address] PCP - General Internal Medicine 11/03/14 04/13/20 Jesus Monterroso MD [address] [place] [address] PCP - General Internal Medicine 04/14/20 07/05/20 Abram Gardner MD [address] [place] [address] PCP - General Internal Medicine 07/06/20 12/24/20 Michael Gillette MD [address] [place] [address] PCP - General Internal Medicine 12/25/20 06/28/21 [facility], Pcp [address] [place] [address] PCP - General Internal Medicine 06/29/21 11/14/21 Napoleon Linda [address] [place] [address] PCP - General Internal Medicine 11/15/21 04/20/22 [facility], Pcp [address] [place] [address] PCP - General Internal Medicine 04/21/22 documented as of this encounter
--- OUTSIDE RECORDS SUMMARY | 2024-05-16 07:45 | XMS_ITS | Encounter Summary ---
Author Organization [facility] Address [address] [place] [address] Care Team Providers Care Line Palletizer Name Role Phone Robinson Hoew MD Primary Care Provider + [phone] Jesus Monterroso MD Primary Care Provider Abram Flores MD Primary Care Provider Michael Hinojosa MD Primary Care Provider Driss nguyen [facility], Pcp Primary Care Provider Napoleon Mejia Primary Care Provider [phone] [facility], Pcp Primary Care Provider Maria T grace Encounter Details Date Type Department Care Team Description 11/28/2017 Release of Information Medical Records [address] [place] [id number] Abstract, Provider Social History Tobacco Use Types [...] on filedocumented in this encounter Care Teams Line Palletizer Relationship Specialty Start Date End Date Robinson Howe MD [address] [place] [address] PCP - General Internal Medicine 11/03/14 04/13/20 Jesus Monterroso MD [address] [place] [address]226 PCP - General Internal Medicine 04/14/20 07/05/20 Abram Gardner MD [address] [place] [address]145 PCP - General Internal Medicine 07/06/20 12/24/20 Michael Gillette MD [address] [place] [address] PCP - General Internal Medicine 12/25/20 06/28/21 [facility], Pcp [address] [place], [place] [phone] PCP - General Internal Medicine 06/29/21 11/14/21 Napoleon Linda [address] [place] [address] PCP - General Internal Medicine 11/15/21 04/20/22 [facility], Pcp [address] [place] [address] PCP - General Internal Medicine 04/21/22 documented as of this encounter
--- OUTSIDE RECORDS SUMMARY | 2024-05-16 07:45 | XMS_ITS | Encounter Summary ---
Author Organization [facility] Address [address] [place] [address] Care Team Providers Care Ship Surveyor Name Role Phone Robinson Howe MD Primary Care Provider + [phone] Jesus Monterroso MD Primary Care Provider Abram Flores MD Primary Care Provider Unavailab Michael Duvall MD Primary Care Provider Unavagabriel nguyen [facility], Pcp Primary Care Provider UnavailNapoleon White Primary Care Provider [phone] [facility], Pcp Primary Care Provider Unavailguido e Encounter Details Date Type Department Care Team Description 06/27/2016 Orders Only Medical Records [address] [place] [address] Alexandria Todd MD [address] [place] [address] [facility] [place] [phone] Social History Tobacco Use Types Packs/Day Years [...] on filedocumented in this encounter Care Teams Ship Surveyor Relationship Specialty Start Date End Date Robinson Howe MD [address] [place] [address] PCP - General Internal Medicine 11/03/14 04/13/20 Jesus Monterroso MD [address] [place] [address] PCP - General Internal Medicine 04/14/20 07/05/20 Abram Gardner MD [address] [place] [address] PCP - General Internal Medicine 07/06/20 12/24/20 Michael Gillette MD [address] [place] [address] PCP - General Internal Medicine 12/25/20 06/28/21 [facility], Pcp [address] [place] [address] PCP - General Internal Medicine 06/29/21 11/14/21 Napoleon Linda [address] [place] [address] PCP - General Internal Medicine 11/15/21 04/20/22 [facility], Pcp [address] [place] [address] PCP - General Internal Medicine 04/21/22 documented as of this encounter
--- OUTSIDE RECORDS SUMMARY | 2024-05-16 07:45 | XMS_ITS | Encounter Summary ---
Author Organization [facility] Address [address] [place] [address] Care Team Providers Care Manager House Name Role Phone Robinson Howe MD Primary Care Provider + [phone] Jesus Monterroso MD Primary Care Provider Abram Flores MD Primary Care Provider Unavailab Michael Duvall MD Primary Care Provider Driss nguyen [facility], Pcp Primary Care Provider Unavailabl Napoleon Ramirez Primary Care Provider [phone] [facility], Pcp Primary Care Provider Unavailabl e Reason for Visit * Reason Onset Date Comments Faxed Order 10/28/2017 [facility] Encounter Details Date Type Department Care Team Description 10/28/2017 Telephone Adult [address] [phone] Robinson Hwoe MD [address] [place] [address] [phone] Faxed Order ([facility]) Social History Tobacco Use Types Packs/Day Years [...] filedocumented in this encounter Care Teams Manager House Relationship Specialty Start Date End Date Robinson Howe MD [address] [place] [address] PCP - General Internal Medicine 11/03/14 04/13/20 Jesus Monterroso MD [address] [place] [address] PCP - General Internal Medicine 04/14/20 07/05/20 Abram Gardner MD [address] [place] [address] PCP - General Internal Medicine 07/06/20 12/24/20 Michael Gillette MD [address] [place] [address] PCP - General Internal Medicine 12/25/20 06/28/21 [facility], Pcp [address] [place], [place] [phone] PCP - General Internal Medicine 06/29/21 11/14/21 Napoleon Linda [address] [place], [place] [phone] PCP - General Internal Medicine 11/15/21 04/20/22 [facility], Pcp [address] [place], [place] [phone] PCP - General Internal Medicine 04/21/22 documented as of this encounter
--- OUTSIDE RECORDS SUMMARY | 2024-05-16 07:45 | XMS_ITS | Encounter Summary ---
Author Organization [facility] Address [address] [place] [address] Care Team Providers Care Salesperson New Cars Name Role Phone Robinson Howe MD Primary Care Provider + [phone] Jesus Monterroso MD Primary Care Provider Abram Flores MD Primary Care Provider Unavailab Micahel Duvall MD Primary Care Provider Driss nguyen [facility], Pcp Primary Care Provider UnavailNapoleon White Primary Care Provider [phone] [facility], Pcp Primary Care Provider Unavailabl e Reason for Visit * Reason Comments E-prescribe Rx Request Encounter Details Date Type Department Care Team Description 01/05/2017 Refill Adult Medicine [address] [phone] Jerod Daniel PA-C [address] [place] [address] [phone] E-prescribe Rx Request Social History Tobacco Use [...] / Plan[place] / Product Type: MEDICARE [id number] documented in this encounter Plan of Treatment Not on file documented as of this encounter Visit Diagnoses Not on filedocumented in this encounter Care Teams Salesperson New Cars Relationship Specialty Start Date End Date Robinson Howe MD [address] [place] [address] PCP - General Internal Medicine 11/03/14 04/13/20 Jesus Monterroso MD [address] [place] [address] PCP - General Internal Medicine 04/14/20 07/05/20 Abram Gardner MD [address] [place] [address] PCP - General Internal Medicine 07/06/20 12/24/20 Michael Gillette MD [address] [place] [address] PCP - General Internal Medicine 12/25/20 06/28/21 Santa Berg [address] [place] [address] PCP - General Internal Medicine 06/29/21 11/14/21 Napoleon Linda [address] [place] [address] PCP - General Internal Medicine 11/15/21 04/20/22 [facility], Santa [address] [place] [address] PCP - General Internal Medicine 04/21/22 documented as of this encounter
--- OUTSIDE RECORDS SUMMARY | 2024-05-16 07:45 | XMS_ITS | Encounter Summary ---
Author Organization [facility] Address [address] [place] [address] Care Team Providers Care Facing Slitter Name Role Phone Robinson Howe MD Primary Care Provider + [phone] Jesus Monterroso MD Primary Care Provider Abram Flores MD Primary Care Provider Unavailab Michael Duvall MD Primary Care Provider Driss nguyen [facility], Pcp Primary Care Provider Unavailabl e Napoleon Linda Primary Care Provider [phone] [facility], Pcp Primary Care Provider Unavailabl e Reason for Visit * Reason Onset Date Comments Testing 06/28/2016 Encounter Details Date Type Department Care Team Description 06/28/2016 Telephone Radiology - [address] [phone] Jerod Daniel PA-C [address] [place] [address] [phone] Testing Social History Tobacco Use Types Packs/Day [...] on filedocumented in this encounter Care Teams Facing Slitter Relationship Specialty Start Date End Date Robinson Howe MD [address] [place] [address] PCP - General Internal Medicine 11/03/14 04/13/20 Jesus Monterroso MD [address] [place] [address] PCP - General Internal Medicine 04/14/20 07/05/20 Abram Gardner MD [address] [place] [address] PCP - General Internal Medicine 07/06/20 12/24/20 Michael Gillette MD [address] [place] [address] PCP - General Internal Medicine 12/25/20 06/28/21 [facility], Pcp [address] [place] [address] PCP - General Internal Medicine 06/29/21 11/14/21 Napoleon Linda [address] [place] [address] PCP - General Internal Medicine 11/15/21 04/20/22 [facility], Pcp [address] [place] [address] PCP - General Internal Medicine 04/21/22 documented as of this encounter
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
--- OUTSIDE RECORDS SUMMARY | 2024-05-16 07:45 | XMS_ITS | Encounter Summary ---
Author Organization [facility] Address [address] [place] [address] Care Team Providers Care Residential Aide Name Role Phone Robinson Howe MD Primary Care Provider + [phone] Jesus Monterroso MD Primary Care Provider Abram Flores MD Primary Care Provider Unavailab Michael Duavll MD Primary Care Provider Driss nguyen [facility], Pcp Primary Care Provider UnavailNapoleon White Primary Care Provider [phone] [facility], Pcp Primary Care Provider Unavailabl e Reason for Visit * Reason Comments E-prescribe Rx Request Encounter Details Date Type Department Care Team Description 12/15/2019 Refill Adult Medicine [address] [phone] Robinson Howe MD [address] [place] [address] [phone] E-prescribe Rx Request Social History Tobacco Use [...] Telephone Encounter - Mary Benton M.A. - 12/17/2019 7:20 AM EDT Lab Results Component Value Date TSH 3.93 10/02/2019 Change to mail order pharmacy. * Telephone Encounter - Selina Black - 12/15/2019 1:21 PM EDT Patient would like script to be: E-PRESCRIBED/FAXED TO PHARMACY WHEN WAS THE PATIENT'S LAST APPOINTMENT IN ADULT MEDICINE? 11/22/2019 WHEN WAS THE LAST TIME THE PATIENT SAW THEIR PCP? 06/18/2019 Does patient have an upcoming appointment? No-patient refused appointment, will call back to book appointment (THE MEDICATION REQUESTED IS ON THE MED [...] N/A Patients current insurance carrier is: Payor: [facility] [employer] M[employer] / Plan: O $0 [facility] [id number] / Product Type: HMO [id number] documented in this encounter Plan of Treatment Not on file documented as of this encounter Visit Diagnoses Diagnosis Obstructive sleep apnea mild AHI 7 Obstructive sleep apnea (adult) (pediatric) Diabetes mellitus due to underlying condition with diabetic neuropathy, without long-term current use of insulin (HCC) Essential hypertension Unspecified essential hypertension Type 2 diabetes mellitus with diabetic neuropathy, with long-term current use of insulin (HCC) Right leg pain Pain in limb Type 2 diabetes mellitus with diabetic neuropathy, without long-term current use of insulin (HCC) Pain of right lower extremity documented in this encounter Care Teams Residential Aide Relationship Specialty Start Date End Date Robinson Howe MD [address] [place] [address] PCP - General Internal Medicine 11/03/14 04/13/20 Jesus Monterroso MD [address] [place] [address] PCP - General Internal Medicine 04/14/20 07/05/20 Abram Gardner MD [address] [place] [address] PCP - General Internal Medicine 07/06/20 12/24/20 Michael Gillette MD [address] [place] [address] PCP - General Internal Medicine 12/25/20 06/28/21 [facility], Pcp [address] [place], [place] [phone] PCP - General Internal Medicine 06/29/21 11/14/21 Napoleon Linda [address] [place] [address] PCP - General Internal Medicine 11/15/21 04/20/22 [facility], Pcp [address] [place] [address] PCP - General Internal Medicine 04/21/22 documented as of this encounter
--- OUTSIDE RECORDS SUMMARY | 2024-05-16 07:45 | XMS_ITS | Encounter Summary ---
Author Organization [facility] Address [address] [place] [address] Care Team Providers Care Oracle Drm Consultant Name Role Phone Robinson Howe MD Primary Care Provider + [phone] Jesus Monterroso MD Primary Care Provider Abram Flores MD Primary Care Provider Unavailab Michael Duvall MD Primary Care Provider Driss nguyen [facility], Pcp Primary Care Provider Unavailabl Napoleon Ramirez Primary Care Provider [phone] [facility], Pcp Primary Care Provider Unavailabl e Reason for Visit * Reason Comments E-prescribe Rx Request Encounter Details Date Type Department Care Team Description 08/04/2017 Refill Adult Medicine [address] [phone] Robinson Howe MD [address] [place] [address] [phone] E-prescribe Rx Request Social History Tobacco Use [...] / Plan: [place] / Product Type: MEDICARE [id number] documented in this encounter Plan of Treatment [...] reflux documented in this encounter Care Teams Oracle Drm Consultant Relationship Specialty Start Date End Date Robinson Howe MD [address] [place] [address] PCP - General Internal Medicine 11/03/14 04/13/20 Jesus Monterroso MD [address] [place], [place] [phone] PCP - General Internal Medicine 04/14/20 07/05/20 Abram Gardner MD [address] [place] [address] PCP - General Internal Medicine 07/06/20 12/24/20 Michael Gillette MD [address] [place] [address] PCP - General Internal Medicine 12/25/20 06/28/21 [facility], Pcp [address] [place] [address] PCP - General Internal Medicine 06/29/21 11/14/21 Napoleon Linda [address] [place] [address] PCP - General Internal Medicine 11/15/21 04/20/22 [facility], Pcp [address] [place] [address] PCP - General Internal Medicine 04/21/22 documented as of this encounter
--- OUTSIDE RECORDS SUMMARY | 2024-05-16 07:45 | XMS_ITS | Encounter Summary ---
Author Organization [facility] Address [address] [place] [address] Care Team Providers Care Unloader Operator Name Role Phone Abram Gardner MD Primary Care Provider Michael Hinojosa MD Primary Care Provider Driss nguyen [facility], Pcp Primary Care Provider Napoleon Mejia Primary Care Provider [phone] [facility] Pcp Primary Care Provider Unavailabl e Reason for Visit * Reason Comments E-prescribe Rx Request Encounter Details Date Type Department Care Team Description 07/22/2020 Refill Adult Medicine [address] [address] Robinson Howe MD [address] [place] [address] E-prescribe Rx Request Social History Tobacco Use [...] N/A Patients current insurance carrier is: Payor: [facility] MCR / Plan: HMO $0 [facility] [id number] / Product Type: HMO [id number] documented in this encounter Plan of Treatment [...] exacerbation documented in this encounter Care Teams Unloader Operator Relationship Specialty Start Date End Date Abram Gardner MD PCP - General Internal Medicine 07/06/20 12/24/20 Michael Gillette MD PCP - General Internal Medicine 12/25/20 06/28/21 [facility], Pcp PCP - General Internal Medicine 06/29/21 11/14/21 Napoleon Linda [address] [place] [address] PCP - General Internal Medicine 11/15/21 04/20/22 [facility], Pcp PCP - General Internal Medicine 04/21/22 documented as of this encounter
--- OUTSIDE RECORDS SUMMARY | 2024-05-16 07:45 | XMS_ITS | Encounter Summary ---
Author Organization [facility] Address [address] [place] [address] Care Team Providers Care Transplant Surgeon Name Role Phone Robinson Howe MD Primary Care Provider + [phone] Jesus Monterroso MD Primary Care Provider Abram Flores MD Primary Care Provider Unavailab Michael Duvall MD Primary Care Provider Driss nguyen [facility], Pcp Primary Care Provider UnavailNapoleon White Primary Care Provider [phone] [facility], Pcp Primary Care Provider Unavailabl e Reason for Visit * Reason Comments E-prescribe Rx Request Encounter Details Date Type Department Care Team Description 09/17/2016 Refill Adult Medicine [address] [id number] Jerod Daniel PA-C [address] [place] [address] [phone] E-prescribe Rx Request Social History Tobacco Use [...] / Plan[place] / Product Type: MEDICARE [id number] documented in this encounter Plan of Treatment [...] exacerbation documented in this encounter Care Teams Transplant Surgeon Relationship Specialty Start Date End Date Robinson Howe MD [address] [place] [address] PCP - General Internal Medicine 11/03/14 04/13/20 Jesus Monterroso MD [address] [place] [address] PCP - General Internal Medicine 04/14/20 07/05/20 Abram Gardner MD [address] [place] [address] PCP - General Internal Medicine 07/06/20 12/24/20 Michael Gillette MD [address] [place] [address] PCP - General Internal Medicine 12/25/20 06/28/21 [facility], Pcp [address] [place], [place] [phone] PCP - General Internal Medicine 06/29/21 11/14/21 Napoleon Linda [address] [place] [address] PCP - General Internal Medicine 11/15/21 04/20/22 [facility], Pcp [address] [place] [address] PCP - General Internal Medicine 04/21/22 documented as of this encounter
--- OUTSIDE RECORDS SUMMARY | 2024-05-16 07:45 | XMS_ITS | Encounter Summary ---
Author Organization [facility] Address [address] [place] [address] Care Team Providers Care Plastic Parts Fabricator Trimmer Name Role Phone Robinson Howe MD Primary Care Provider + [phone] Jesus Monterroso MD Primary Care Provider Abram Flores MD Primary Care Provider Unavailab Michael Duvall MD Primary Care Provider Driss nguyen [facility], Pcp Primary Care Provider Unavailabl Napoleon Ramirez Primary Care Provider [phone] [facility], Pcp Primary Care Provider Unavailabl e Reason for Visit * Reason Comments E-prescribe Rx Request Encounter Details Date Type Department Care Team Description 02/09/2017 Refill Adult Medicine [address] [id number] Robinson Howe MD [address] [place] [address] [phone] E-prescribe Rx Request Social History Tobacco Use [...] / Plan: [place] / Product Type: MEDICARE [id number] documented in this encounter Plan of Treatment [...] limb documented in this encounter Care Teams Plastic Parts Fabricator Trimmer Relationship Specialty Start Date End Date Robinson Howe MD [address] [place] [address] PCP - General Internal Medicine 11/03/14 04/13/20 Jesus Monterroso MD [address] [place] [address] PCP - General Internal Medicine 04/14/20 07/05/20 Abram Gardner MD [address] [place] [address] PCP - General Internal Medicine 07/06/20 12/24/20 Michael Gillette MD [address] [place] [address] PCP - General Internal Medicine 12/25/20 06/28/21 [facility], Pcp [address] [place] [address] PCP - General Internal Medicine 06/29/21 11/14/21 Napoleon Linda [address] [place] [address] PCP - General Internal Medicine 11/15/21 04/20/22 [facility], Pcp [address] [place] [address] PCP - General Internal Medicine 04/21/22 documented as of this encounter
--- OUTSIDE RECORDS SUMMARY | 2024-05-16 07:45 | XMS_ITS | Encounter Summary ---
Author Organization [facility] Address [address] [place] [address] Care Team Providers Care Sewage Plant Supervisor Name Role Phone Michael Gillette MD Primary Care Provider Driss nguyen [facility], Pcp Primary Care Provider Napoleon Mejia Primary Care Provider [phone] [facility], Pcp Primary Care Provider Unavailabl e Reason for Visit * Reason Comments E-prescribe Rx Request Encounter Details Date Type Department Care Team Description 03/28/2021 Refill Adult Medicine [address] [address] Abram Gardner MD E-prescribe Rx Request Social [...] ?? Patients current insurance carrier is: Payor: [facility] MCR / Plan: O $0 [facility] [id number] / Product Type: HMO [id number] ?? documented in this encounter Plan of Treatment Not on file documented as of this encounter Visit Diagnoses Diagnosis Type 2 diabetes mellitus with diabetic neuropathy, with long-term current use of insulin (HCC) Essential hypertension Unspecified essential hypertension Other specified hypothyroidism Gastroesophageal reflux disease without esophagitis Esophageal reflux Need for prophylactic vaccination and inoculation against influenza documented in this encounter Care Teams Sewage Plant Supervisor Relationship Specialty Start Date End Date Michael Gillette MD PCP - General Internal Medicine 12/25/20 06/28/21 [facility], Pcp PCP - General Internal Medicine 06/29/21 11/14/21 Napoleon Linda [address] [place] [address] PCP - General Internal Medicine 11/15/21 04/20/22 [facility], Pcp PCP - General Internal Medicine 04/21/22 documented as of this encounter
--- OUTSIDE RECORDS SUMMARY | 2024-05-16 07:45 | XMS_ITS | Encounter Summary ---
Author Organization [facility] Address [address] [place] [address] Care Team Providers Care Gas Check Pad Maker Name Role Phone Robinson Howe MD Primary Care Provider [phone] Jesus Monterroso MD Primary Care Provider Abram Flores MD Primary Care Provider Unavailab Michael Duvall MD Primary Care Provider Driss nguyen [facility], Pcp Primary Care Provider Unavailabl Napoleon Ramirez Primary Care Provider [phone] [facility], Pcp Primary Care Provider Unavailabl e Reason for Visit * Reason Comments E-prescribe Rx Request Encounter Details Date Type Department Care Team Description 03/15/2017 Refill Adult Medicine [address] [id number] Jerod Dnaiel PA-C [address] [place] [address] [phone] E-prescribe Rx Request Social History Tobacco Use [...] encounter Miscellaneous Notes * Telephone Encounter - Yvette Peter - 03/15/2017 9:48 AM EST Patient would like script to be: E-PRESCRIBED/FAXED TO PHARMACY WHEN WAS THE PATIENT'S LAST APPOINTMENT IN ADULT MEDICINE? 03/06/17 WHEN WAS THE LAST TIME THE PATIENT SAW THEIR PCP? Same as above Does patient have an upcoming appointment? Yes 03/24/17 (THE MEDICATION REQUESTED IS ON THE MED LIST ABOVE) All of the medications requested were on the CURRENT MEDS list Did you check the Pharmacy information above?: YES Patient wants: 30 -day supply Is this a mail order prescription request ? NO Patients current insurance carrier is: [place] / [place] / Product Type: MEDICARE [id number] documented in this encounter Plan of Treatment [...] exacerbation documented in this encounter Care Teams Gas Check Pad Maker Relationship Specialty Start Date End Date Robinson Howe MD [address] [place] [address] PCP - General Internal Medicine 11/03/14 04/13/20 Jesus Monterroso MD [address] [place] [address] PCP - General Internal Medicine 04/14/20 07/05/20 Abram Gardner MD [address] [place] [address] PCP - General Internal Medicine 07/06/20 12/24/20 Michael Gillette MD [address] [place] [address] PCP - General Internal Medicine 12/25/20 06/28/21 [facility], Pcp [address] [place], [place] [phone] PCP - General Internal Medicine 06/29/21 11/14/21 Napoleon Linda [address] [place] [address] PCP - General Internal Medicine 11/15/21 04/20/22 [facility], Pcp [address] [place] [address] PCP - General Internal Medicine 04/21/22 documented as of this encounter
--- OUTSIDE RECORDS SUMMARY | 2024-05-16 07:45 | XMS_ITS | Encounter Summary ---
Author Organization [facility] Address [address] [place] [address] Care Team Providers Care Cloth Mender Name Role Phone Robinson Hwoe MD Primary Care Provider + [phone] Jesus Monterroso MD Primary Care Provider Abram Flores MD Primary Care Provider Unavailab Michael Duvall MD Primary Care Provider Mariaelenavagabriel nguyen [facility], Pcp Primary Care Provider UnavailNapoleon White Primary Care Provider [phone] [facility], Pcp Primary Care Provider Unavailabl e Reason for Visit * Reason Comments E-prescribe Rx Request Encounter Details Date Type Department Care Team Description 07/20/2016 Refill Physiatry - [address] [address] Alexandria Todd MD [address] [place] [address] [place] [id number] E-prescribe Rx Request Social History Tobacco Use [...] on filedocumented in this encounter Care Teams Cloth Mender Relationship Specialty Start Date End Date Robinson Howe MD [address] [place] [address] PCP - General Internal Medicine 11/03/14 04/13/20 Jesus Monterroso MD [address] [place] [address] PCP - General Internal Medicine 04/14/20 07/05/20 Abram Gardner MD [address] [place], [place] [phone] PCP - General Internal Medicine 07/06/20 12/24/20 Michael Gillette MD [address] [place] [address] PCP - General Internal Medicine 12/25/20 06/28/21 [facility], Pcp [address] [place] [address] PCP - General Internal Medicine 06/29/21 11/14/21 Napoleon Linda [address] [place], [place] [phone] PCP - General Internal Medicine 11/15/21 04/20/22 [facility], Pcp [address] [place], [place] [phone] PCP - General Internal Medicine 04/21/22 documented as of this encounter
--- OUTSIDE RECORDS SUMMARY | 2024-05-16 07:45 | XMS_ITS | Encounter Summary ---
Author Organization [facility] Address [address] [place] [address] Care Team Providers Care Student Support Counselor Name Role Phone Ruddy Cruz MD Primary Care Provider Unavail able Robinson Howe MD Primary Care Provider + [phone] Jesus Monterroso MD Primary Care Provider Abram Flores MD Primary Care Provider Unavailab Michael Duvall MD Primary Care Provider Unavai patrick [facility], Pcp Primary Care Provider Unavailabl e Napoleon Linda Primary Care Provider [phone] [facility], [facility] Primary Care Provider Unavailabl e Reason for Visit * Reason Onset Date Comments Follow-up Appt Unavailable 07/29/2014 Encounter Details Date Type Department Care Team Description 07/29/2014 Telephone Adult [address] [phone] Ruddy Cruz MD Follow-up Appt Unavailable Social History Tobacco Use Types Packs/Day Years [...] encounter Miscellaneous Notes * Telephone Encounter - Sherita Taty - 08/07/2014 2:28 PM EDT Patient booked for 08/08/14 with Chase Daniel at 2:15PM. Notes requested * Telephone Encounter - Yvette Peter - 07/29/2014 2:46 PM EDT Message left for patien to call back ok To book see message below * Telephone Encounter - Adamaris Floyd LDarinP.NDarin - 07/29/2014 2:36 PM EDT ER follow ups can be scheduled with mid-levels. Please schedule with Chase or another PA in dept. thanks * Telephone Encounter - Tara Ball - 07/29/2014 12:06 PM EDT Follow up appointment not available. Please call patient to book-no open NON PUBLIC SLOTS. Appointment needed Patient went to er - Kristel Canas - 07/26/14 for Asthma - f/u 1 week. documented in this encounter Plan of Treatment Not on file documented as of this encounter Visit Diagnoses Not on filedocumented in this encounter Care Teams Student Support Counselor Relationship Specialty Start Date End Date Ruddy Cruz MD PCP - General Internal Medicine 12/19/13 11/02/14 Robinson Howe MD [address] [place], [place] [phone] PCP - General Internal Medicine 11/03/14 04/13/20 Jesus Monterroso MD [address] [place] [address] PCP - General Internal Medicine 04/14/20 07/05/20 Abram Gardner MD [address] [place] [address] PCP - General Internal Medicine 07/06/20 12/24/20 Michael Gillette MD [address] [place] [address] PCP - General Internal Medicine 12/25/20 06/28/21 [facility], Pcp [address] [place] [address] PCP - General Internal Medicine 06/29/21 11/14/21 Napoleon Linda [address] [place] [address] PCP - General Internal Medicine 11/15/21 04/20/22 [facility], Pcp [address] [place] [address] PCP - General Internal Medicine 04/21/22 documented as of this encounter
--- OUTSIDE RECORDS SUMMARY | 2024-05-16 07:45 | XMS_ITS | Encounter Summary ---
Author Organization [facility] Address [address] [place] [address] Care Team Providers Care Painter Supervisor Name Role Phone Ruddy Cruz MD Primary Care Provider Unavail able Robinson Howe MD Primary Care Provider + [phone] Jesus Monterroso MD Primary Care Provider Abram Flores MD Primary Care Provider Unavailab Michael Duvall MD Primary Care Provider Mariaelenavagabriel nguyen [facility], Pcp Primary Care Provider UnavailNapoleon White Primary Care Provider [phone] [facility], Pcp Primary Care Provider Unavailabl e Encounter Details Date Type Department Care Team Description 06/06/2014 Costumed Character Report Medical Records [address] [place] [address] Chiropractic, [place] Social History Tobacco Use Types Packs/Day Years [...] on filedocumented in this encounter Care Teams Painter Supervisor Relationship Specialty Start Date End Date Ruddy Cruz MD PCP - General Internal Medicine 12/19/13 11/02/14 Robinson Howe MD [address] [place] [address] PCP - General Internal Medicine 11/03/14 04/13/20 Jesus Monterroso MD [address] [place] [address] PCP - General Internal Medicine 04/14/20 07/05/20 Abram Gardner MD [address] [place] [address] PCP - General Internal Medicine 07/06/20 12/24/20 Michael Gillette MD [address] [place] [address] PCP - General Internal Medicine 12/25/20 06/28/21 [facility], Pcp [address] [place] [address] PCP - General Internal Medicine 06/29/21 11/14/21 Napoleon Linda [address] [place], [place] [phone] PCP - General Internal Medicine 11/15/21 04/20/22 [facility], Pcp [address] [place], [place] [phone] PCP - General Internal Medicine 04/21/22 documented as of this encounter
--- OUTSIDE RECORDS SUMMARY | 2024-05-16 07:45 | XMS_ITS | Encounter Summary ---
Author Organization [facility] Address [address] [place] [address] Care Team Providers Care B And B Gang Worker Name Role Phone Abram Gardner MD Primary Care Provider Michael Hinojosa MD Primary Care Provider Driss nguyen [facility], Pcp Primary Care Provider Napoleon Mejia Primary Care Provider [phone] [facility]cp Primary Care Provider Unavailabl e Reason for Visit * Reason Comments E-prescribe Rx Request Encounter Details Date Type Department Care Team Description 09/27/2020 Refill Orthopedics-[address] [address] Francis Ndiaye PAYangC [address] [place] [address] [id number] E-prescribe Rx Request Social History Tobacco Use [...] have Coronavirus / COVID-19? No / Unsure 09/16/2020 1:35 PM EDT documented as of this encounter Miscellaneous Notes * Telephone Encounter - Arlen Duffy M.A. - 09/28/2020 8:28 AM EDT [place] 09/04/20 documented in this encounter Plan of Treatment Not on file documented as of this encounter Visit Diagnoses Not on filedocumented in this encounter Care Teams B And B Gang Worker Relationship Specialty Start Date End Date Abram Gardner MD PCP - General Internal Medicine 07/06/20 12/24/20 Michael Gillette MD PCP - General Internal Medicine 12/25/20 06/28/21 [facility] Pcp PCP - General Internal Medicine 06/29/21 11/14/21 Napoleon Linda [address] [place] [address] PCP - General Internal Medicine 11/15/21 04/20/22 [facility] Pcp PCP - General Internal Medicine 04/21/22 documented as of this encounter
--- OUTSIDE RECORDS SUMMARY | 2024-05-16 07:45 | XMS_ITS | Encounter Summary ---
Author Organization [facility] Address [address] [place] [address] Care Team Providers Care Baggageman Name Role Phone Robinson Howe MD Primary Care Provider [phone] Jesus Monterroso MD Primary Care Provider Abram Flores MD Primary Care Provider Michael Hinojosa MD Primary Care Provider Driss nguyen [facility], Pcp Primary Care Provider aNpoleon Mejia Primary Care Provider [phone] [facility], Pcp Primary Care Provider Maria T grace Encounter Details Date Type Department Care Team Description 08/08/2017 Business Doc Medical Records [address] [place] [address] Abstract, Provider Social History Tobacco Use Types [...] on filedocumented in this encounter Care Teams Baggageman Relationship Specialty Start Date End Date Robinson Howe MD [address] [place] [address] PCP - General Internal Medicine 11/03/14 04/13/20 Jesus Monterroso MD [address] [place] [address] PCP - General Internal Medicine 04/14/20 07/05/20 Abram Gardner MD [address] [place] [address] PCP - General Internal Medicine 07/06/20 12/24/20 Michael Gillette MD [address] [place] [address] PCP - General Internal Medicine 12/25/20 06/28/21 [facility] Pcp [address] [place], [place] [address] PCP - General Internal Medicine 06/29/21 11/14/21 Napoleon Linda [address] [place] [address] PCP - General Internal Medicine 11/15/21 04/20/22 [facility], Pcp [address] [place] [address] PCP - General Internal Medicine 04/21/22 documented as of this encounter
--- OUTSIDE RECORDS SUMMARY | 2024-05-16 07:45 | XMS_ITS | Encounter Summary ---
Author Organization [facility] Address [address] [place] [address] Care Team Providers Care Reefer Engineer Name Role Phone Louisa Machuca MD Primary Care Provider Unavailable Ruddy Cruz MD Primary Care Provider Unavail able Robinson Howe MD Primary Care Provider + [phone] Jesus Monterroso MD Primary Care Provider Abram Flores MD Primary Care Provider Unavailab Michael Duvall MD Primary Care Provider Driss nguyen [facility], Pcp Primary Care Provider UnavailNapoleon White Primary Care Provider [phone] [facility], Pcp Primary Care Provider Maria T grace Encounter Details Date Type Department Care Team Description 09/12/2013 Business Doc Medical Records [address] [place] [id number] Abstract, Provider Social History Tobacco Use Types [...] on filedocumented in this encounter Care Teams Reefer Engineer Relationship Specialty Start Date End Date Louisa Machuca MD PCP - General Internal Medicine 07/17/13 Ruddy Cruz MD PCP - General Internal Medicine 12/19/13 11/02/14 Robinson Howe MD [address] [place] [address] PCP - General Internal Medicine 11/03/14 04/13/20 Jesus Monterroso MD [address] [place] [address] PCP - General Internal Medicine 04/14/20 07/05/20 Abram Gardner MD [address] [place] [address] PCP - General Internal Medicine 07/06/20 12/24/20 Michael Gillette MD [address] [place] [address] PCP - General Internal Medicine 12/25/20 06/28/21 [facility], Pcp [address] [place] [address] PCP - General Internal Medicine 06/29/21 11/14/21 Napoleon Linda [address] [place] [address] PCP - General Internal Medicine 11/15/21 04/20/22 [facility], Pcp [address] [place] [address] PCP - General Internal Medicine 04/21/22 documented as of this encounter
--- OUTSIDE RECORDS SUMMARY | 2024-05-16 07:45 | XMS_ITS | Encounter Summary ---
Author Organization [facility] Address [address] [place] [address] Care Team Providers Care Material Requirements Planning Manager Name Role Phone Robinson Howe MD Primary Care Provider + [phone] Jesus Monterroso MD Primary Care Provider Abram Flores MD Primary Care Provider Michael Hinojosa MD Primary Care Provider Driss nguyen [facility], Pcp Primary Care Provider Napoleon Mejia Primary Care Provider [facility], Pcp Primary Care Provider Maria T grace Encounter Details Date Type Department Care Team Description 02/20/2020 [facility] Medical Records [address] [place] [address] Abstract, Provider Social History Tobacco Use Types [...] on filedocumented in this encounter Care Teams Material Requirements Planning Manager Relationship Specialty Start Date End Date Robinson Howe MD [address] [place] [address] PCP - General Internal Medicine 11/03/14 04/13/20 Jesus Monterroso MD [address] [place] [address] PCP - General Internal Medicine 04/14/20 07/05/20 Abram Gardner MD [address] [place] [address] PCP - General Internal Medicine 07/06/20 12/24/20 Michael Gillette MD [address] [place] [address] PCP - General Internal Medicine 12/25/20 06/28/21 [facility], Pcp [address] [place], [place] [phone] PCP - General Internal Medicine 06/29/21 11/14/21 Napoleon Linda [address] [place] [address] PCP - General Internal Medicine 11/15/21 04/20/22 [facility], Pcp [address] [place] [address] PCP - General Internal Medicine 04/21/22 documented as of this encounter
--- OUTSIDE RECORDS SUMMARY | 2024-05-16 07:45 | XMS_ITS | Encounter Summary ---
Author Organization [facility] Address [address] [place] [address] Care Team Providers Care Plunger Scoop Operator Name Role Phone Ruddy Cruz MD Primary Care Provider Unavail able Robinson Howe MD Primary Care Provider + [phone] Jesus Monterroso MD Primary Care Provider Abram Flores MD Primary Care Provider UnavailMichael Elmore MD Primary Care Provider Driss nguyen [facility], Pcp Primary Care Provider UnavailNapoleon White Primary Care Provider [phone] [facility], Pcp Primary Care Provider Unavailguido e Encounter Details Date Type Department Care Team Description 03/25/2014 Home Health Certification Medical Records [address] [place] [id number] Abstract, Provider Social History Tobacco Use Types [...] on filedocumented in this encounter Care Teams Plunger Scoop Operator Relationship Specialty Start Date End Date Ruddy Cruz MD PCP - General Internal Medicine 12/19/13 11/02/14 Robinson Howe MD [address] [place] [address] [id number] PCP - General Internal Medicine 11/03/14 04/13/20 Jesus Monterroso MD [address] [place] [address] PCP - General Internal Medicine 04/14/20 07/05/20 Abram Gardner MD [address] [place] [address] PCP - General Internal Medicine 07/06/20 12/24/20 Michael Gillette MD [address] [place] [address] PCP - General Internal Medicine 12/25/20 06/28/21 [facility], Pcp [address] [place] [address] PCP - General Internal Medicine 06/29/21 11/14/21 Napoleon Linda [address] [place] [address] PCP - General Internal Medicine 11/15/21 04/20/22 [facility], Pcp [address] [place] [address] PCP - General Internal Medicine 04/21/22 documented as of this encounter
--- OUTSIDE RECORDS SUMMARY | 2024-05-16 07:46 | XMS_ITS | Encounter Summary ---
Author Organization [facility] Address [address] [place] [address] Care Team Providers Care Editing Intern Name Role Phone Robinson Howe MD Primary Care Provider [phone] Jesus Monterroso MD Primary Care Provider Abram Flores MD Primary Care Provider Unavailab Michael Duvall MD Primary Care Provider Driss nguyen [facility], Pcp Primary Care Provider Unavailabl e Napoleon Linda Primary Care Provider [phone] [facility] Primary Care Provider Unavailabl e Reason for Visit * Reason Onset Date Comments Medication 10/23/2019 colon Encounter Details Date Type Department Care Team Description 10/23/2019 Refill Gastroenterology [address] [id number] Trenton Pierce MD Medication (colon) Social History Tobacco Use Types Packs/Day Years [...] on filedocumented in this encounter Care Teams Editing Intern Relationship Specialty Start Date End Date Robinson Howe MD [address] [place] [address] PCP - General Internal Medicine 11/03/14 04/13/20 Jesus Monterroso MD [address] [place] [address] PCP - General Internal Medicine 04/14/20 07/05/20 Abram Gardner MD [address] [place] [address] PCP - General Internal Medicine 07/06/20 12/24/20 Michael Gillette MD [address] [place] [address] PCP - General Internal Medicine 12/25/20 06/28/21 [facility], Pcp [address] [place] [address] PCP - General Internal Medicine 06/29/21 11/14/21 Napoleon Linda [address] [place], [place] [id number] PCP - General Internal Medicine 11/15/21 04/20/22 [facility], Pcp [address] [place], [place] [phone] PCP - General Internal Medicine 04/21/22 documented as of this encounter
--- OUTSIDE RECORDS SUMMARY | 2024-05-16 07:46 | XMS_ITS | Encounter Summary ---
Author Organization [facility] Address [address] [place] [address] Care Team Providers Care Roguer Name Role Phone Robinson Howe MD Primary Care Provider [phone] Jesus Monterroso MD Primary Care Provider Abram Flores MD Primary Care Provider UnavailMichael Elmore MD Primary Care Provider Driss nguyen [facility], Pcp Primary Care Provider UnavailNapoleon White Primary Care Provider [phone] [facility], Pcp Primary Care Provider Maria T grace Encounter Details Date Type Department Care Team Description 03/11/2016 Orders Only Medical Records [address] [place] [address] Jerod Daniel PA-C [address] [place] [id number] Social History Tobacco Use Types Packs/Day Years [...] on filedocumented in this encounter Care Teams Roguer Relationship Specialty Start Date End Date Robinson Howe MD [address] [place] [address] PCP - General Internal Medicine 11/03/14 04/13/20 Jesus Monterroso MD [address] [place] [address] PCP - General Internal Medicine 04/14/20 07/05/20 Abram Gardner MD [address] [place] [address] PCP - General Internal Medicine 07/06/20 12/24/20 Michael Gillette MD [address] [place] [address] PCP - General Internal Medicine 12/25/20 06/28/21 [facility], Pcp [address] [place] [address] PCP - General Internal Medicine 06/29/21 11/14/21 Napoleon Linda [address] [place] [address] PCP - General Internal Medicine 11/15/21 04/20/22 [facility], Pcp [address] [place] [address] PCP - General Internal Medicine 04/21/22 documented as of this encounter
== END 2024-05-16 08:54 | disposition home or self-care (01) ==
LOC: HO.HUSH 07:43
PROVIDERS: PCP Internal Medicine; Visit Provider Urology
DX: R32 Unspecified urinary incontinence (principal); R39.9 Unspecified symptoms and signs involving the genitourinary system; N32.81 Overactive bladder; Z13.9 Encounter for screening, unspecified
CPT/HCPCS: 99214

== ENCOUNTER → 2024-05-16 07:42 | Outpatient (BNVA) | payer OTHER, SELFPAY | PROVIDERS: PCP Internal Medicine; Visit Provider Urology | DX: R32 Unspecified urinary incontinence (principal); R39.9 Unspecified symptoms and signs involving the genitourinary system; N32.81 Overactive bladder | CPT/HCPCS: 81003; 99212 ==

== ENCOUNTER 2024-05-20 11:23 | Outpatient (REF) | payer OTHER, SELFPAY ==
--- NOTE | ~2024-05-20 | MM_ITS ---
EXAMINATION: MM DIAGNOSTIC DIGITAL BREAST TOMOSYNTHESIS, BILATERAL Limited left breast ultrasound. CLINICAL INFORMATION: Left breast palpable lump and pain for 3 to 4 months and palpable lump is in the upper inner quadrant pain radiates 11-1 o'clock. COMPARISON: Mammography: Comparison is made with relevant prior exams. TECHNIQUE: Digital breast mammography with tomosynthesis is performed in both the craniocaudal and mediolateral oblique views along with computer-aided detection (CAD). FINDINGS: There are scattered areas of fibroglandular density (ACR BI-RADS breast composition Category b). Right: There are no significant masses, abnormal calcifications, or other abnormalities. Left: BB marker in the upper inner quadrant at site of palpable lump without underlying abnormality. No suspicious calcifications masses or other abnormal findings. Targeted color Doppler ultrasound scanning from 11-1 o'clock demonstrates an incidental hypoechoic oval solid mass at 1:00 2 cm from the nipple measuring 5 x 6 x 4 mm. Results are provided to the patient at time of visit by the technologist. MM/MM tomosynthesis diagnostic BI IMPRESSION: No mammographic or sonographic abnormality to account for the patient's left breast palpable lump in the upper inner quadrant. Recommend clinical evaluation and follow-up. Incidental hypoechoic oval mass at 1:00 2 cm from the nipple in the left breast. Ultrasound-guided core needle biopsy versus 6 month follow-up was offered to the patient. The patient prefers ultrasound-guided core needle biopsy at this time for confirmation. The findings and recommendations were discussed with the patient the procedure will be scheduled. ASSESSMENT: BI-RADS BI-RADS 4 - Suspicious finding RECOMMENDATION: Biopsy recommended This patient's information was entered into a reminder system with a target due date for their next mammogram. Electronically signed by: Wanda Shen DO 05/20/2024 12:40 PM EDT
--- OUTSIDE RECORDS SUMMARY | 2024-05-20 13:04 | XMS_ITS | Encounter Summary ---
Author Organization [employer] Address [address] [place] [address] [address] [place] [address] Care Team Providers Care Conciliator Name Role Phone Unavailable Primary Care Provider Unavailabl e Encounter Details Date Type Department Care Team (Latest Contact Info) Description 04/05/2018 Abstract [facility] CONVERSIONS Dental, Provider, DDS Social History [...] Description 09/13/2024 3:00 PM EDT Office Visit [facility] ADULT DENTAL [address] [place] [address] Delaney, Madeline [address] [place] [address] documented as of this encounter Visit Diagnoses Not on filedocumented in this encounter
--- OUTSIDE RECORDS SUMMARY | 2024-05-20 13:04 | XMS_ITS | Encounter Summary ---
Author Organization [employer] Address [address] [place] [address] [address] [place] [address] Care Team Providers Care Ton Cylinder Inspector Name Role Phone Unavailable Primary Care Provider Unavailabl e Encounter Details Date Type Department Care Team (Latest Contact Info) Description 12/24/2021 Abstract [facility] CONVERSIONS Dental, Provider, DDS Social History [...] Description 09/13/2024 3:00 PM EDT Office Visit [facility] ADULT DENTAL [address] [place] [address] Delaney, Madeline [address] [place] [address] documented as of this encounter Visit Diagnoses Not on filedocumented in this encounter
--- OUTSIDE RECORDS SUMMARY | 2024-05-20 13:04 | XMS_ITS | Encounter Summary ---
Author Organization [employer] Address [address] [place] [address] [address]t [place] [address] Care Team Providers Care Instructional Technology Coach Name Role Phone Unavailable Primary Care Provider Unavailabl e Encounter Details Date Type Department Care Team (Latest Contact Info) Description 10/03/2018 Abstract [facility] CONVERSIONS Dental, Provider, DDS Social History [...] Description 09/13/2024 3:00 PM EDT Office Visit [facility] ADULT DENTAL [address] [place] [address] Delaney, Madeline [address] [place] [address] documented as of this encounter Visit Diagnoses Not on filedocumented in this encounter
--- OUTSIDE RECORDS SUMMARY | 2024-05-20 13:04 | XMS_ITS | Encounter Summary ---
Author Organization [employer] Address [address] [place] [address] [address]t [place] [address] Care Team Providers Care Home Delivery Driver Name Role Phone Unavailable Primary Care Provider Unavailabl e Reason for Visit * Reason Onset Date Comments Durable Medical Equipment 01/18/2023 Encounter Details Date Type Department Care Team ([facility] st Contact Info) Description 01/18/2023 Telephone [facility] MEDICINE [address] [place] [address] Jesus Wiseman MD [address] [place], [place] [phone] Durable Medical Equipment Social History Tobacco Use [...] PM EST Tc from Susana working with [facility] requesting the following. Pull ups size Medium 4 per day, Wipes 4 per month, Disposable bed pads 2 per day, and she refills for all the supply's. Any questions please contact Susana at [phone] ext [phone] FYI after further inspection this pt does not seem active. documented in this encounter Plan of Treatment Upcoming Encounters Date Type Department Care Team (Late st Contact Info) Description 09/13/2024 3:00 PM EDT Office Visit [facility] ADULT DENTAL [address] [place] [address] Madeline Baltazar [address] [place] [address] documented as of this encounter Visit Diagnoses Not on filedocumented in this encounter
--- OUTSIDE RECORDS SUMMARY | 2024-05-20 13:04 | XMS_ITS | Encounter Summary ---
Author Organization [employer] Address [address] [place] [address] [address] [place] [address] Care Team Providers Care J2Ee Java Developer Name Role Phone Unavailable Primary Care Provider Unavailabl e Encounter Details Date Type Department Care Team (Late st Contact Info) Description 01/26/2022 Abstract [facility] ADULT DENTAL [address] [place] [address] Dental, Provider, DDS Social History Tobacco Use [...] Description 09/13/2024 3:00 PM EDT Office Visit [facility] ADULT DENTAL [address] [place], [place] [phone] Douglas Baltazararis [address] [place], [place] [phone] documented as of this encounter Procedures Procedure [...]
--- OUTSIDE RECORDS SUMMARY | 2024-05-20 13:04 | XMS_ITS | Encounter Summary ---
Author Organization [employer] Address [address] [place] [address] [address] [place] [address] Care Team Providers Care Renderer Name Role Phone Unavailable Primary Care Provider Unavailabl e Encounter Details Date Type Department Care Team (Latest Contact Info) Description 12/24/2021 Abstract [facility] CONVERSIONS Dental, Provider, DDS Social History [...] 09/13/2024 3:00 PM EDT Office Visit [facility] ADULT DENTAL [address] [place] [address] Delaney, Madeline [address] [place] [address] documented as of this encounter Visit Diagnoses Not on filedocumented in this encounter
--- OUTSIDE RECORDS SUMMARY | 2024-05-20 13:04 | XMS_ITS | Clinical Summary ---
Author Organization [employer] Address [address] [place] [address] [address] [place] [address] Care Team Providers Care Asp Net Developer Name Role Phone Unavailable Primary Care [...] Description 03/15/2024 10:00 AM EST Office Visit [facility] ADULT DENTAL [address] [place] [address] Madeline Baltazar Dental plaque (Primary Dx) from [...] Office Visit [facility] ADULT DENTAL [address] [place], [place] [phone] Delaney, Madeline [address] [place] [address] Health Maintenance Due Date Last Done Comments [...] Relevant to Health Maintenance Insurance DENTAL - [facility] Member Subscriber Plan / Payer (Ef fective 2017-Present) Name:Joanna Osman Relation to Subscriber:Self Name:Joanna Osman Payer ID:Not on file Group ID:[id number] Type:Not on file Address: [address] - [facility] DENTAL - [facility]
== END 2024-05-20 11:24 | disposition home or self-care (01) ==
LOC: HO.MAMMO 11:23
PROVIDERS: PCP Internal Medicine; Visit Provider Internal Medicine
DX: N63.22 Unspecified lump in the left breast, upper inner quadrant (principal)
CPT/HCPCS: 76642; 77062; 77066

== ENCOUNTER → 2024-05-20 12:00 | Outpatient (BNV) | payer OTHER, SELFPAY | PROVIDERS: PCP Internal Medicine; Visit Provider Internal Medicine | DX: N63.22 Unspecified lump in the left breast, upper inner quadrant (principal) | CPT/HCPCS: 76642; 77066; G0279 ==

== ENCOUNTER 2024-05-28 13:18 | Outpatient (AMB) | payer OTHER, SELFPAY ==
--- NOTE | 2024-05-28 13:19 | A.OFFVIS_ITS ---
Vital Signs 3 05/28/24 13:32 Height 5 ft 3 in Weight 161 lb 4 oz BMI 28.6 BP 141/66 H Blood Pressure Location Lt brachial Position Sitting Pulse 63 Intake Visit Reasons: us bx lt breast 2cm nipple Intake Note: Pt is seen in office for ultrasound biopsy CONSULT left breast mass 2cm from nipple. Pt c/o: feels a lump above the left breast 12 o'clock for the past 3 months, discomfort, denies discharge, redness or other concerns, denies prior breast surgery or complications, no fm hx of breast cancer, no to breast feeding Bx sched:05/30/24 Broth Mixer Required: Yes Broth Mixer Language: Dental Appliance Mechanic Services: Broth Mixer Present Broth Mixer Name: Louisa DAI Information Interpreted: non-clinical & clinical Solar Sales Specialist: Solar Sales Specialist Present Accompanied by: Daughter Allergies regadenoson [From Lexiscan] Adverse Reaction (Intermediate, Verified 05/28/24 13:29) Chest Pain Medication List - Last Reconciled 05/28/24 by Darci Jimenez MD amlodipine 5 mg PO DAILY ascorbic acid (vitamin C) 500 mg PO DAILY aspirin 81 mg PO DAILY azelastine 2 sprays intranasal BID 30 days [Bed pads As directed] blood-glucose meter (FreeStyle Lite Meter kit) test daily carvedilol 6.25 mg PO BID cefuroxime axetil 500 mg PO BID cetirizine (Zyrtec) 10 mg PO DAILY cholecalciferol (vitamin D3) 25 mcg PO DAILY CPAP (CPAP Machine/Device) As directed [DIABETIC SHOES As directed] fluticasone propionate 50 mcg/actuation 2 sprays intranasal DAILY 30 days dljpexvgcih-oznnvqklm-nsjhbgjc 200-62.5-25 mcg (Trelegy Ellipta) 1 inh inhalation DAILY 30 days hydrocortisone 2.5% 1 appl topical BID PRN [incontinence wipes As directed] levothyroxine 100 mcg PO DAILY losartan 50 mg PO DAILY Magic Mouthwash Diphen/Lido/Antacid 1:1:1 10 mL PO BID-TID PRN 3 days meclizine 50 mg PO BID memantine 28 mg PO DAILY 90 days [Metal Shower handles As directed] metformin 500 mg PO DAILY montelukast 10 mg PO BEDTIME nebulizers As directed pantoprazole 20 mg PO DAILY phenazopyridine (Azo Urinary Pain Relief) 199 mg (2 x 99.5 mg) PO BID [pull up As directed] Saccharomyces boulardii (Daily Probiotic (S. boulardii)) 5,000 mmu cells PO DAILY [sanitary pads kotex As directed] sennosides (Natural Senna Laxative) 17.2 mg (2 x 8.6 mg) PO DAILY 90 days sertraline mg PO DAILY simvastatin 20 mg PO BEDTIME [tumeric 1 tab PO DAILY] HPI Comments Details: 74-year-old female patient presenting for evaluation of pain in the left breast at the upper inner quadrant. The pain has been present for approximately 3 months and seems to be associated with a palpable mass in this location. She subsequently underwent evaluation with mammogram and ultrasound on 05/20/2024. The mammogram revealed no suspicious findings at the site of the palpable abnormality. Ultrasound also was negative for any suspicious findings at the site of the upper inner quadrant pain. Incidentally noted was an oval mass at the 2 o'clock position approximately 2 cm from the nipple. This was felt to be a suspicious finding (BI-RADS 4) an ultrasound-guided core biopsy is recommended. She is scheduled [facility] at [facility] on 05/30/2024. She denies a previous history of breast problems or breast surgery. Her family history is negative for breast cancer. She is 2 para 1, menarche was the age of 12 and menopause at 45. [facility] Medical History Elevated cholesterol HTN (hypertension) Type 2 diabetes mellitus Cognitive dysfunction GERD (gastroesophageal reflux disease) Osteopenia Hypothyroid Chronic cough History of neuropathy Chronic ankle pain Non-rheumatic aortic stenosis Pleuritic chest pain Chronic allergic rhinitis Hypothyroidism Asthma-COPD overlap syndrome ALISA (obstructive sleep apnea) Asthma Surgical History History of esophagogastroduodenoscopy (EGD) History of colonoscopy with polypectomy (04/16/24) Hx of cystoscopy History of colonoscopy (~03/12/20) History of surgery on lower extremity History of back surgery History of thyroid surgery Family History Father Diabetes HTN (hypertension) Heart disease Mother Diabetes HTN (hypertension) Other Asthma Social History Household Members: None Housing: Apartment Alcohol intake: former Patient Tobacco Use Status: Former Tobacco user Tobacco use type: Cigarette Years Smoked: 10 years e-Cigarette/Vaping Use: Never Used Second Hand Smoke Exposure: Yes service: No Current occupational status: disabled Current occupational exposures/hazards: No Cognitive needs: Yes (cane) Hearing needs: No Vision needs: Yes Female Reproductive History Menstrual Age of Menarche: 12 Age of menopause: 45 Total pregnancies: 2 Number of Living Children: 1 Review of Systems Const All systems reviewed & are unremarkable except as noted in HPI and below Physical Exam Const General: cooperative and no acute distress Nutritional Appearance: well nourished Orientation/consciousness: patient oriented x3 Limitations: no limitations HEENT Head: Yes normocephalic and Yes atraumatic Ears: hearing grossly normal bilaterally Chest Other: Left breast: No skin change, no nipple retraction, no nipple discharge, no palpable mass, no enlarged lymph nodes. No palpable masses noted in the site described with the patient in the upper inner quadrant Right breast: No skin change, no nipple retraction, no nipple discharge, no palpable mass, no enlarged lymph nodes Chest/axillae images: 2 1. Site described by patient with the palpable mass and pain. No suspicious findings are noted in this location. Patient may be feeling musculoskeletal tissue. Resp Effort & Inspection: normal respiratory effort, no audible wheezes, no cough and no respiratory distress Cardio Jugular venous distension: no JVD GI Inspection: Yes normal to inspection Skin Other: Warm, dry, no rash Neuro General: patient oriented x3 Extrem General: Yes no clubbing, cyanosis or edema Assessment & Plan Assessment & Plan (1) Abnormal ultrasound of breast: Code(s): R92.8 - Other abnormal and inconclusive findings on diagnostic imaging of breast Category: Medical (2) Breast lump on left side at 11 o'clock position: Code(s): N63.22 - Unspecified lump in the left breast, upper inner quadrant Category: Medical Plan 74-year-old female patient presenting with pain in the left breast at the upper inner quadrant. Workup with ultrasound and mammogram revealed a suspicious finding in the upper outer quadrant at the 1 o'clock position approximately 2 cm from the nipple with a density noted in this location. She was scheduled for an ultrasound-guided core biopsy on 05/30/2024. Examination revealed no suspicious findings in either breast. No palpable findings are noted to either the upper inner quadrant or the 1 o'clock position. I recommended the patient return in approximately 1 week following the biopsy to review the pathology results and discuss treatment options. She expressed understanding and agrees with the plan. Coding Level of Care Code New Pt Level 4 (83316) Diagnoses Abnormal ultrasound of breast R92.8 Breast lump on left side at 11 o'clock position N63.22
[2024-05-28 13:32] VITALS: BP 141/66; PULSE 63; BMI 28.6
--- OUTSIDE RECORDS SUMMARY | 2024-05-28 16:13 | XMS_ITS | Encounter Summary ---
Author Organization [facility] Address [address] [place] [address] [address]t [place] [address] Care Team Providers Care Centrifugal Operator Name Role Phone Unavailable Primary Care Provider Unavailabl e Encounter Details Date Type Department Care Team (Latest Contact Info) Description 04/05/2018 Abstract [facility] CONVERSIONS Dental, Provider, DDS Social History [...] 09/13/2024 3:00 PM EDT Office Visit [facility] ADULT DENTAL [address] [place] [address] Delaney, Madeline [address] [place] [address] documented as of this encounter Visit Diagnoses Not on filedocumented in this encounter
--- OUTSIDE RECORDS SUMMARY | 2024-05-28 16:13 | XMS_ITS | Encounter Summary ---
Author Organization [employer] Address [address] [place] [address] [address]t [place] [address] Care Team Providers Care Dynamite Cartridge Crimper Name Role Phone Unavailable Primary Care Provider Unavailabl e Encounter Details Date Type Department Care Team (Latest Contact Info) Description 10/03/2018 Abstract [facility] CONVERSIONS Dental, Provider, DDS Social History [...] Description 09/13/2024 3:00 PM EDT Office Visit [facility] ADULT DENTAL [address] [place] [address] Delaney, Madeline [address] [place] [address] documented as of this encounter Visit Diagnoses Not on filedocumented in this encounter
--- OUTSIDE RECORDS SUMMARY | 2024-05-28 16:13 | XMS_ITS | Clinical Summary ---
Author Organization [employer] Address [address] [place] [address] [address]t [place] [address] Care Team Providers Care Marker Delivery Name Role Phone Unavailable Primary Care Provider [...] Description 03/15/2024 10:00 AM EST Office Visit [facility] ADULT DENTAL [address] [place] [address] Maedline Baltazar Dental plaque (Primary Dx) from Last [...] Description 09/13/2024 3:00 PM EDT Office Visit [facility] ADULT DENTAL [address] [place], [place] [phone] Delaney, Madeline [address] [place] [address] Health Maintenance Due Date Last Done Comments [...] Relevant to Health Maintenance Insurance DENTAL - [facility] Member Subscriber Plan / Payer (Ef fective 2017-Present) Name:Joanna Osman Relation to Subscriber:Self Name:Joanna Osman Payer ID:Not on file Group ID:[id number] Type:Not on file Address: [address] - [facility] DENTAL - [facility]
--- OUTSIDE RECORDS SUMMARY | 2024-05-28 16:13 | XMS_ITS | Encounter Summary ---
Author Organization [employer] Address [address] [place] [address] [address]t [place] [address] Care Team Providers Care Window And Siding Craftsman Name Role Phone Unavailable Primary Care Provider Unavailabl e Encounter Details Date Type Department Care Team (Late st Contact Info) Description 01/26/2022 Abstract [facility] ADULT DENTAL [address] [place] [address] Dental, Provider, DDS Social History Tobacco Use [...] Description 09/13/2024 3:00 PM EDT Office Visit [facility] ADULT DENTAL [address] [place], [place] [phone] Delaney Madeline [address] [place], [place] [phone] documented as of this encounter Procedures Procedure [...]
--- OUTSIDE RECORDS SUMMARY | 2024-05-28 16:13 | XMS_ITS | Encounter Summary ---
Author Organization [employer] [facility] Address [address] [place] [address] 7t [place] [address] Care Team Providers Care Junior Financial Analyst Name Role Phone Unavailable Primary Care Provider Unavailabl e Encounter Details Date Type Department Care Team (Latest Contact Info) Description 12/24/2021 Abstract [facility] CONVERSIONS Dental, Provider, DDS Social [...] Description 09/13/2024 3:00 PM EDT Office Visit [facility] ADULT DENTAL [address] [place] [address] Delaney, Madeline [address] [place] [address] documented as of this encounter Visit Diagnoses Not on filedocumented in this encounter
--- OUTSIDE RECORDS SUMMARY | 2024-05-28 16:13 | XMS_ITS | Encounter Summary ---
Author Organization [employer] Address [address] [place] [address] 7t [place] [address] Care Team Providers Care Manager Pediatric Name Role Phone Unavailable Primary Care Provider Unavailabl e Encounter Details Date Type Department Care Team (Latest Contact Info) Description 12/24/2021 Abstract [facility] CONVERSIONS Dental, Provider, DDS Social History Tobacco [...] Description 09/13/2024 3:00 PM EDT Office Visit [facility] ADULT DENTAL [address] [place] [address] Delaney, Madeline [address] [place] [address] documented as of this encounter Visit Diagnoses Not on filedocumented in this encounter
--- OUTSIDE RECORDS SUMMARY | 2024-05-28 16:13 | XMS_ITS | Encounter Summary ---
Author Organization [employer] Address [address] [place] [address] 7t [place] [address] Care Team Providers Care Jewel Corner Brushing Machine Operator Name Role Phone Unavailable Primary Care Provider Unavailabl e Reason for Visit * Reason Onset Date Comments Durable Medical Equipment 01/18/2023 Encounter Details Date Type Department Care Team ([facility] st Contact Info) Description 01/18/2023 Telephone [facility] MEDICINE [address] [place] [address] Jesus Wiseman MD [address] [place], [place] [phone] Durable Medical Equipment Social History Tobacco Use [...] PM EST Tc from Susana working with [facility] requesting the following. Pull ups size Medium 4 per day, Wipes 4 per month, Disposable bed pads 2 per day, and she [id number] refills for all the supply's. Any questions please contact Susana at [phone] ext [phone] FYI after further inspection this pt does not seem active. documented in this encounter Plan of Treatment Upcoming Encounters Date Type Department Care Team (Late st Contact Info) Description 09/13/2024 3:00 PM EDT Office Visit [facility] ADULT DENTAL [address] [place] [address] Madeline Baltazar [address] [place] [address] documented as of this encounter Visit Diagnoses Not on filedocumented in this encounter
== END 2024-05-28 13:48 | disposition home or self-care (01) ==
LOC: HO.HGS 13:19
PROVIDERS: PCP Internal Medicine; Visit Provider Surgery
DX: R92.8 Other abnormal and inconclusive findings on diagnostic imaging of breast (principal); N63.22 Unspecified lump in the left breast, upper inner quadrant
CPT/HCPCS: 99204

== ENCOUNTER → 2024-05-28 13:18 | Outpatient (BNVA) | payer OTHER, SELFPAY | PROVIDERS: PCP Internal Medicine; Visit Provider Surgery | DX: R92.8 Other abnormal and inconclusive findings on diagnostic imaging of breast (principal); N63.22 Unspecified lump in the left breast, upper inner quadrant | CPT/HCPCS: 99202 ==

== ENCOUNTER 2024-05-30 08:40 | Outpatient (REF) | payer OTHER, SELFPAY ==
--- NOTE | ~2024-05-30 | US_ITS ---
PROCEDURE: ULTRASOUND-GUIDED LEFT BREAST BIOPSY CLINICAL INFORMATION: Solid mass versus complicated cyst in the left breast at 1:00 for which the patient requested ultrasound-guided core needle biopsy. COMPARISON: [facility] on PACS. TECHNIQUE: The details of the procedure, as well as the risks, benefits, and alternatives to the procedure were explained to the patient in detail and all of her questions were answered, after which, written informed consent was obtained. PROCEDURE: Prior to the procedure, sonography revealed probable complicated cyst at 1:00 in the left breast. A time-out was performed, the lesion intended for biopsy was targeted and the skin of the left breast was then prepped and draped in the usual sterile fashion. Using sonographic guidance, sterile technique, and 1% lidocaine without epinephrine for local anesthesia, a total of 1 cores were obtained through the targeted area with a 14 gauge biopsy device after the first sample the area resolved and only normal fibroglandular breast tissue is seen. At the completion of tissue sampling, a single Butterfly-shaped metallic clip was deposited at the biopsy site. An appropriate sample was obtained. The postprocedure 2-view direct digital mammogram reveals satisfactory positioning of the biopsy clip. The patient tolerated the procedure well and, after assuring adequate hemostasis, was discharged in good condition after reviewing postbiopsy breast care instructions. Final pathology results are pending. US/US breast ndl core biopsy LT IMPRESSION: 1. Uncomplicated sonographically-guided core biopsy of the left breast. The 2-view direct digital postprocedure mammogram reveals satisfactory positioning of the biopsy clip. 2. Final pathology results are pending. A separate report with final recommendations will be issued once these results are made available. Electronically signed by: Wanda Shen DO 05/30/2024 10:17 AM [email or web address]
--- OUTSIDE RECORDS SUMMARY | 2024-05-30 08:58 | XMS_ITS | Encounter Summary ---
Author Organization [facility] Address [address] [place] [address] Care Team Providers Care Manager Underwriting Name Role Phone Michael [place] MD Primary Care Provider Driss nguyen [facility], Pcp Primary Care Provider Napoleon Mejia Primary Care Provider [phone] [facility], Pcp Primary Care Provider Unavailabl e Reason for Visit * Reason Comments E-prescribe Rx Request Encounter Details Date Type Department Care Team Description 03/28/2021 Refill Adult Medicine [address] [address] Jerod Daniel PA-C [address] [place] [address] [phone] E-prescribe Rx Request Social History Tobacco Use [...] filedocumented in this encounter Care Teams Manager Underwriting Relationship Specialty Start Date End Date Michael Gillette MD PCP - General Internal Medicine 12/25/20 06/28/21 [facility], Pcp PCP - General Internal Medicine 06/29/21 11/14/21 [place] [address] PCP - General Internal Medicine 11/15/21 04/20/22 [facility], Pcp PCP - General Internal Medicine 04/21/22 documented as of this encounter
--- OUTSIDE RECORDS SUMMARY | 2024-05-30 08:58 | XMS_ITS | Encounter Summary ---
Author Organization [employer] Address [address] [place] [address] 7t [place] [address] Care Team Providers Care Bow String Maker Name Role Phone Unavailable Primary Care Provider Unavailabl e Encounter Details Date Type Department Care Team (Latest Contact Info) Description 12/24/2021 Abstract [facility] CONVERSIONS Dental, Provider, DDS Social History [...] Description 09/13/2024 3:00 PM EDT Office Visit [facility] ADULT DENTAL [address] [place] [address] Delaney, Madeline [address] [place] [address] documented as of this encounter Visit Diagnoses Not on filedocumented in this encounter
--- OUTSIDE RECORDS SUMMARY | 2024-05-30 08:58 | XMS_ITS | Encounter Summary ---
Author Organization [facility] Address [address] [place] [address] Care Team Providers Care Rubber Covering Machine Operator Name Role Phone Robinson Howe MD Primary Care Provider + [phone] Jesus Monterroso MD Primary Care Provider Abram Flores MD Primary Care Provider UnavailMichael Elmore MD Primary Care Provider Driss nguyen [facility], Pcp Primary Care Provider UnavailNapoleon White Primary Care Provider [phone] [facility], Pcp Primary Care Provider Unavailguido e Encounter Details Date Type Department Care Team Description 11/11/2019 Telephone Adult Medicine [address] [phone] Robinson Howe MD [address] [place] [address] [phone] Social History Tobacco Use Types Packs/Day Years [...] on filedocumented in this encounter Care Teams Rubber Covering Machine Operator Relationship Specialty Start Date End Date Robinson Howe MD [address] [place] [address] PCP - General Internal Medicine 11/03/14 04/13/20 Jesus Monterroso MD [address] [place] [address] PCP - General Internal Medicine 04/14/20 07/05/20 Abram Gardner MD [address] [place] [address] PCP - General Internal Medicine 07/06/20 12/24/20 Michael [place]lette MD [address] [place] [address] PCP - General Internal Medicine 12/25/20 06/28/21 [facility], Pcp [address] [place] [address] PCP - General Internal Medicine 06/29/21 11/14/21 Napoleon Linda [address] [place] [address] PCP - General Internal Medicine 11/15/21 04/20/22 [facility], Pcp [address] [place], [place] [phone] PCP - General Internal Medicine 04/21/22 documented as of this encounter
--- OUTSIDE RECORDS SUMMARY | 2024-05-30 08:58 | XMS_ITS | Encounter Summary ---
Author Organization [employer] Address [address] [place] [address] 7t [place] [address] Care Team Providers Care Emergency Service Restorer Name Role Phone Unavailable Primary Care Provider Unavailabl e Encounter Details Date Type Department Care Team (Latest Contact Info) Description 04/05/2018 Abstract [facility] CONVERSIONS Dental, Provider, DDS Social History Tobacco [...] Description 09/13/2024 3:00 PM EDT Office Visit [facility] ADULT DENTAL [address] [place] [address] Delaney, Madeline [address] [place] [address] documented as of this encounter Visit Diagnoses Not on filedocumented in this encounter
--- OUTSIDE RECORDS SUMMARY | 2024-05-30 08:58 | XMS_ITS | Encounter Summary ---
Author Organization [facility] Address [address] [place] [address] Care Team Providers Care Canine Service Instructor Trainer Name Role Phone Robinson Howe MD Primary Care Provider + [phone] Jesus Monterroso MD Primary Care Provider Abram Flores MD Primary Care Provider Unavailab Michael Duvall MD Primary Care Provider Driss nguyen [facility], Pcp Primary Care Provider Unavailabl Napoleon Ramirez Primary Care Provider [phone] [facility], Pcp Primary Care Provider Unavailabl e Reason for Visit * Reason Onset Date Comments Faxed Order 10/28/2017 [facility] Encounter Details Date Type Department Care Team Description 10/28/2017 Telephone Adult [address] [phone] Robinson Howe MD [address] [place] [address] [phone] Faxed Order ([facility]) Social History Tobacco Use Types Packs/Day [...] on filedocumented in this encounter Care Teams Canine Service Instructor Trainer Relationship Specialty Start Date End Date Robinson Howe MD [address] [place] [address] PCP - General Internal Medicine 11/03/14 04/13/20 Jesus Monterroso MD [address] [place] [address] PCP - General Internal Medicine 04/14/20 07/05/20 Abram Gardner MD [address] [place] [address] PCP - General Internal Medicine 07/06/20 12/24/20 Michael [place] MD [address] [place] [address] PCP - General Internal Medicine 12/25/20 06/28/21 [facility], Pcp [address] [place], [place] [phone] PCP - General Internal Medicine 06/29/21 11/14/21 Napoleon Linda [address] [place], [place] [phone] PCP - General Internal Medicine 11/15/21 04/20/22 [facility], Pcp [address] [place], [place] [phone] PCP - General Internal Medicine 04/21/22 documented as of this encounter
--- OUTSIDE RECORDS SUMMARY | 2024-05-30 08:58 | XMS_ITS | Encounter Summary ---
Author Organization [facility] Address [address] [place] [address] Care Team Providers Care Price Checker Name Role Phone Robinson Howe MD Primary Care Provider + [phone] Jesus Monterroso MD Primary Care Provider Abram Flores MD Primary Care Provider Michael Hinojosa MD Primary Care Provider Driss nguyen [facility], Pcp Primary Care Provider Napoleon Mejia Primary Care Provider [phone] [facility], Pcp Primary Care Provider Maria T grace Encounter Details Date Type Department Care Team Description 11/28/2017 Release of Information Medical Records [address] [place] [id number] Abstract, Provider Social History Tobacco Use Types [...] on filedocumented in this encounter Care Teams Price Checker Relationship Specialty Start Date End Date Robinson Howe MD [address] [place] [address] PCP - General Internal Medicine 11/03/14 04/13/20 Jesus Monterroso MD [address] [place] [address] PCP - General Internal Medicine 04/14/20 07/05/20 Abram Gardner MD [address] [place] [address] PCP - General Internal Medicine 07/06/20 12/24/20 Michael [place]lette MD [address] [place] [address] PCP - General Internal Medicine 12/25/20 06/28/21 [facility], Pcp [address] [place], [place] [phone] PCP - General Internal Medicine 06/29/21 11/14/21 Napoleon Linda [address] [place] [address] PCP - General Internal Medicine 11/15/21 04/20/22 [facility], Pcp [address] [place] [address] PCP - General Internal Medicine 04/21/22 documented as of this encounter
--- OUTSIDE RECORDS SUMMARY | 2024-05-30 08:58 | XMS_ITS | Encounter Summary ---
Author Organization [facility] Address [address] [place] [address] Care Team Providers Care Machine Setter Name Role Phone Louisa Machuca MD Primary Care Provider Unavailable Ruddy Cruz MD Primary Care Provider Unavail able Robinson Howe MD Primary Care Provider + [phone] Jesus Monterroso MD Primary Care Provider Abram Flores MD Primary Care Provider Unavailab Michael Duvall MD Primary Care Provider Driss nguyen [facility], Pcp Primary Care Provider UnavailNapoleon White Primary Care Provider [phone] [facility], Pcp Primary Care Provider Maria T grace Encounter Details Date Type Department Care Team Description 07/17/2013 Business Doc Medical Records [address] [place] [address] Abstract, Provider Social History Tobacco Use Types [...] on filedocumented in this encounter Care Teams Machine Setter Relationship Specialty Start Date End Date Louisa Machuca MD PCP - General Internal Medicine 07/17/13 Ruddy Cruz MD PCP - General Internal Medicine 12/19/13 11/02/14 Robinson Howe MD [address] [place] [address] PCP - General Internal Medicine 11/03/14 04/13/20 Jesus Monterroso MD [address] [place] [address] PCP - General Internal Medicine 04/14/20 07/05/20 Abram Gardner MD [address] [place] [address] PCP - General Internal Medicine 07/06/20 12/24/20 Michael Gillette MD [address] [place] [address] PCP - General Internal Medicine 12/25/20 06/28/21 [facility], Pcp [address] [place] [address] PCP - General Internal Medicine 06/29/21 11/14/21 Napoleon Linda [address] [place] [address] PCP - General Internal Medicine 11/15/21 04/20/22 [facility], Pcp [address] [place] [address] PCP - General Internal Medicine 04/21/22 documented as of this encounter
--- OUTSIDE RECORDS SUMMARY | 2024-05-30 08:58 | XMS_ITS | Encounter Summary ---
Author Organization [facility] Address [address] [place] [address] Care Team Providers Care Combatant Swimmer Name Role Phone Robinson Howe MD Primary Care Provider + [phone] Jesus Monterroso MD Primary Care Provider Abram Flores MD Primary Care Provider Unavailab Michael Duvall MD Primary Care Provider Driss nguyen [facility], Pcp Primary Care Provider Unavailabl Napoleon Ramirez Primary Care Provider [phone] [facility], Pcp Primary Care Provider Unavailabl e Reason for Visit * Reason Onset Date Comments fatigue/malaise 10/01/2019 Encounter Details Date Type Department Care Team Description 10/01/2019 Telephone Adult [address] [phone] Robinson Howe MD [address] [place] [address] [phone] fatigue/malaise Social History Tobacco Use Types Packs/Day [...] her thyroid is off Was seen in [facility] last week and tested negative Asking for [...] abroad? NO ??? Have you been to [place] or in contact with anyone who has recently been in [place]? NO If pain or injury related was it due to an accident at work or from a motor vehicle accident? NO If yes, gather 3rd green party insurance information Date of accident/Injury: How long has patient had these symptoms?: 3-4 DAYS PCP: Robinson Howe Payor: [facility] MCR / Plan: HMO $0 [facility] [id number] / Product Type: HMO [id number] documented in this encounter Plan of Treatment Not on file documented as of this encounter Results * 25 HYDROXY INCLUDES FRACTIONS IF PERFORMED (10/02/2019 1:46 PM EDT) VITAMIN D, 25-HYDROXY 43 30 - 80 ng/mL 10/02/2019 5:24 PM EDT [facility] 10/02/2019 1:46 PM EDT 10/02/2019 1:50 PM EDT Jerod Daniel PA-C LAB [facility] * (ABNORMAL) CBC (AUTO DIFF PLATELET) (10/02/2019 1:46 PM EDT) Pathologist [facility] WHITE BLOOD COUNT 10.8 4.8 - 10.8 x10-3/uL 10/02/2019 5:35 PM EDT [facility] RED BLOOD COUNT 4.4 3.8 - 4.8 [...] 4.00 uIU/ml 10/02/2019 5:25 PM EDT [facility] 10/02/2019 1:46 PM EDT 10/02/2019 1:50 PM EDT Jerod Daniel PA-C LAB Performing Organization Address [facility]/State/ZIP Co de Phone Number [facility] * MICROALBUMIN/CREATININE, URINE (10/02/2019 1:46 PM EDT) CREATININE, RANDOM URINE 95 mg/dL 10/02/2019 5:33 PM EDT [facility] MICROALBUMIN, RANDOM 27.0 0.0 - 29.0 mg/L 10/02/2019 5:42 PM EDT [facility] MICROALB/CRE RATIO RANDOM 28.4 0.0 - 30.0 mg/G 10/02/2019 5:42 PM EDT [facility] 10/02/2019 1:46 PM EDT 10/02/2019 1:50 PM EDT Jerod Daniel PA-C LAB Performing Organization Address [facility]/ZIP Co de Phone Number [facility] * COMPREHENSIVE METABOLIC PANEL (10/02/2019 1:46 PM EDT) GLUCOSE 90 70 - 100 mg/dL 10/02/2019 5:23 PM EDT [facility] Comment:Reference range appl icable to fasting specimens only Blood Urea Nitrogen 17 5 - 25 mg/dL 10/02/2019 5:23 PM EDT [facility] CREAT 0.81 0.5 - 1.1 mg/dL 10/02/2019 5:23 PM EDT [facility] GLOMERULAR FILTRATION RATE > 60 10/02/2019 5:23 PM EDT [facility] Comment: If patient is -Citizen Of [place], multiply result by 1.21 Chronic Kidney Disease: < 60 ml/min/1.73 square meters Kidney Failure: < 15 ml/min/1.73 square meters NA 141 135 - 145 mEq/L 10/02/2019 5:23 PM EDT [facility] K 4.0 3.5 - 5.5 mmol/L 10/02/2019 [...] PM EDT Jerod Daniel PA-C LAB [facility] * HEMOGLOBIN A1C (10/02/2019 1:46 PM EDT) GLYCATED HEMOGLOBIN A1C 6.4 <6.5 % 10/02/2019 7:43 PM EDT [facility] ESTIMATED AVERAGE GLUCOSE 137 mg/dL 10/02/2019 7:43 PM EDT [facility] 10/02/2019 1:46 PM EDT 10/02/2019 1:50 PM EDT Jerod Daniel PA-C LAB Performing Organization Address City/[facility]/ZIP Co de Phone Number [facility] * (ABNORMAL) FOLIC ACID (10/02/2019 1:46 PM EDT) FOLATE > 20.0(H) 2.8 - 17.0 ng/ml 10/02/2019 5:46 PM EDT [facility] 10/02/2019 1:46 PM EDT 10/02/2019 1:50 PM EDT Jerod Daniel PA-C LAB Performing Organization Address City/[facility]/ZIP Co de Phone Number [facility] * (ABNORMAL) VITAMIN B-12, ASSAY (10/02/2019 1:46 PM EDT) VITAMIN B12 1593(H) 250 - 900 pg/mL 10/02/2019 5:46 PM EDT [facility] 10/02/2019 1:46 PM EDT 10/02/2019 1:50 PM EDT Jerod Daniel PA-C LAB [facility] documented in this encounter Visit Diagnoses Diagnosis Type 2 diabetes mellitus with diabetic neuropathy, without long-term current use of insulin (HCC)- Primary documented in this encounter Care Teams Combatant Swimmer Relationship Specialty Start Date End Date Robinson Howe MD [address] [place] [address] PCP - General Internal Medicine 11/03/14 04/13/20 Jesus Monterroso MD [address] [place] [address] PCP - General Internal Medicine 04/14/20 07/05/20 Abram Gardner MD [address] [place] [address] PCP - General Internal Medicine 07/06/20 12/24/20 Michael Gillette MD [address] [place] [address] PCP - General Internal Medicine 12/25/20 06/28/21 [facility], Pcp [address] [place] [address] PCP - General Internal Medicine 06/29/21 11/14/21 Napoleon Linda [address] [place] [address] PCP - General Internal Medicine 11/15/21 04/20/22 [facility], Pcp [address] [place] [address] PCP - General Internal Medicine 04/21/22 documented as of this encounter
--- OUTSIDE RECORDS SUMMARY | 2024-05-30 08:58 | XMS_ITS | Encounter Summary ---
Author Organization [facility] Address [address] [place] [address] Care Team Providers Care Histology Technician Name Role Phone Robinson Howe MD Primary Care Provider + [phone] Jesus Monterroso MD Primary Care Provider Abram Flores MD Primary Care Provider Unavailab Michael Duvall MD Primary Care Provider Driss nguyen [facility], Pcp Primary Care Provider UnavailNapoleon White Primary Care Provider [phone] [facility], Pcp Primary Care Provider Unavailabl e Reason for Visit * Reason Comments E-prescribe Rx Request Encounter Details Date Type Department Care Team Description 12/15/2019 Refill Adult Medicine [address] [phone] Robinson Howe MD [address] [place] [address] [phone] E-prescribe Rx Request Social History Tobacco Use [...] N/A Patients current insurance carrier is: Payor: [facility] MCR / Plan: O $0 [facility] [id number] / Product Type: HMO [id number] documented in this encounter Plan of Treatment [...] extremity documented in this encounter Care Teams Histology Technician Relationship Specialty Start Date End Date Robinson Howe MD [address] [place] [address] PCP - General Internal Medicine 11/03/14 04/13/20 Jesus Monterroso MD [address] [place] [address] PCP - General Internal Medicine 04/14/20 07/05/20 Abram Gardner MD [address] [place] [address] PCP - General Internal Medicine 07/06/20 12/24/20 Michael Gillette MD [address] [place] [address] PCP - General Internal Medicine 12/25/20 06/28/21 [facility], Pcp [address] [place], [place] [phone] PCP - General Internal Medicine 06/29/21 11/14/21 Napoleon Linda [address] [place] [address] PCP - General Internal Medicine 11/15/21 04/20/22 [facility], Pcp [address] [place] [address] PCP - General Internal Medicine 04/21/22 documented as of this encounter
--- OUTSIDE RECORDS SUMMARY | 2024-05-30 08:58 | XMS_ITS | Encounter Summary ---
Author Organization [employer] Address [address] [place] [address] 7t [place] [address] Care Team Providers Care Surveillance System Monitor Name Role Phone Unavailable Primary Care Provider Unavailabl e Encounter Details Date Type Department Care Team (Late st Contact Info) Description 01/26/2022 Abstract [facility] ADULT DENTAL [address] [place] [address] Dental, Provider, DDS Social History Tobacco Use [...] Office Visit [facility] ADULT DENTAL [address] [place], [place] [phone] Delaney Madeline [address] [place], [place] [phone] documented as of this encounter Procedures Procedure [...]
--- OUTSIDE RECORDS SUMMARY | 2024-05-30 08:58 | XMS_ITS | Encounter Summary ---
Author Organization [facility] Address [address] [place] [address] Care Team Providers Care Animal Care Specialist Name Role Phone Robinson Howe MD Primary Care Provider + [phone] Jesus Monterroso MD Primary Care Provider Abram Flores MD Primary Care Provider Michael Hinojosa MD Primary Care Provider Driss nguyen [facility], Pcp Primary Care Provider Napoleon Mejia Primary Care Provider [phone] [facility], Pcp Primary Care Provider Maria T grace Encounter Details Date Type Department Care Team Description 08/08/2017 Business Doc Medical Records [address] [place] [address] Abstract, Provider Social History Tobacco Use Types [...] on filedocumented in this encounter Care Teams Animal Care Specialist Relationship Specialty Start Date End Date Robinson Howe MD [address] [place] [address] PCP - General Internal Medicine 11/03/14 04/13/20 Jesus Monterroso MD [address] [place] [address] PCP - General Internal Medicine 04/14/20 07/05/20 Abram Gardner MD [address] [place] [address] PCP - General Internal Medicine 07/06/20 12/24/20 Michael Gillette MD [address] [place] [address] PCP - General Internal Medicine 12/25/20 06/28/21 [facility], Pcp [address] [place], [place] [phone] PCP - General Internal Medicine 06/29/21 11/14/21 Napoleon Linda [address] [place] [address] PCP - General Internal Medicine 11/15/21 04/20/22 [facility], Pcp [address] [place] [address] PCP - General Internal Medicine 04/21/22 documented as of this encounter
--- OUTSIDE RECORDS SUMMARY | 2024-05-30 08:58 | XMS_ITS | Encounter Summary ---
Author Organization [employer] Address [address] [place] [address] 7t [place] [address] Care Team Providers Care Technical Intern Name Role Phone Unavailable Primary Care Provider Unavailabl e Reason for Visit * Reason Onset Date Comments Durable Medical Equipment 01/18/2023 Encounter Details Date Type Department Care Team ([facility] st Contact Info) Description 01/18/2023 Telephone [facility] MEDICINE [address] [place] [address] Jesus Wiseman MD [address] [place], [place] [phone] Durable Medical Equipment Social History Tobacco Use [...] PM EST Tc from Susana working with [facility] requesting the following. Pull ups size Medium 4 per day, Wipes 4 per month, Disposable bed pads 2 per day, and she refills for all the supply's. Any questions please contact Susana at [phone] ext [phone] FYI after further inspection this pt does not seem active. documented in this encounter Plan of Treatment Upcoming Encounters Date Type Department Care Team (Late st Contact Info) Description 09/13/2024 3:00 PM EDT Office Visit [facility] ADULT DENTAL [address] [place] [address] Madeline Baltazar [address] [place] [address] documented as of this encounter Visit Diagnoses Not on filedocumented in this encounter
--- OUTSIDE RECORDS SUMMARY | 2024-05-30 08:58 | XMS_ITS | Encounter Summary ---
Author Organization [facility] Address [address] [place] [address] Care Team Providers Care Inspector Metal Can Name Role Phone Michael Gillette MD Primary Care Provider Driss nguyen [facility], Pcp Primary Care Provider Napoleon Mejia Primary Care Provider [phone] [facility], Pcp Primary Care Provider Maria T grace Encounter Details Date Type Department Care Team Description 01/13/2021 Orders Only Adult Medicine [address] [address] Michael Gillette MD Preoperative examination; Screening for deficiency anemia; custodial current use of anticoagulant therapy Social History [...] 01/13/2022 PROTHROMBIN TIME Lab Routine Preoperative examination terminal operator current use of anticoagulant therapy Expected: 01/13/2021 (Approximate), Expires: 01/13/2022 THROMBOPLASTIN TIME, PARTIAL Lab Routine Preoperative examination custodial current use of anticoagulant therapy Expected: 01/13/2021 (Approximate), Expires: 01/13/2022 URINALYSIS, ROUTINE Lab Routine Preoperative examination Expected: 01/13/2021 (Approximate), Expires: 01/13/2022 documented as of this encounter Visit Diagnoses Diagnosis Preoperative examination Preoperative examination, unspecified Screening for deficiency anemia Screening for other and unspecified deficiency anemia terminal operator current use of anticoagulant therapy documented in this encounter Care Teams Inspector Metal Can Relationship Specialty Start Date End Date Michael Gillette MD PCP - General Internal Medicine 12/25/20 06/28/21 [facility], Pcp PCP - General Internal Medicine 06/29/21 11/14/21 Napoleon Linda [address] [place] [address] PCP - General Internal Medicine 11/15/21 04/20/22 [facility], Pcp PCP - General Internal Medicine 04/21/22 documented as of this encounter
--- OUTSIDE RECORDS SUMMARY | 2024-05-30 08:58 | XMS_ITS | Encounter Summary ---
Author Organization [employer] Address [address] [place] [address] 7t [place] [address] Care Team Providers Care Cement Crusher Operator Name Role Phone Unavailable Primary Care Provider Unavailabl e Encounter Details Date Type Department Care Team (Latest Contact Info) Description 10/03/2018 Abstract [facility] CONVERSIONS Dental, Provider, DDS Social History [...] 09/13/2024 3:00 PM EDT Office Visit [facility] ADULT DENTAL [address] [place] [address] Delaney, Madeline [address] [place] [address] documented as of this encounter Visit Diagnoses Not on filedocumented in this encounter
--- OUTSIDE RECORDS SUMMARY | 2024-05-30 08:58 | XMS_ITS | Encounter Summary ---
Author Organization [facility] Address [address] [place] [address] Care Team Providers Care Plant Anatomy Teacher Name Role Phone Michael Gillette MD Primary Care Provider Driss nguyen [facility], Pcp Primary Care Provider Napoleon Mejia Primary Care Provider [phone] [facility], Pcp Primary Care Provider Maria T grace Encounter Details Date Type Department Care Team Description 01/26/2021 Oil Pipeline Dispatcher Report Medical Records [address] [place] [address] Osmar Ayala MD Social History Tobacco Use [...] on filedocumented in this encounter Care Teams Plant Anatomy Teacher Relationship Specialty Start Date End Date Michael Gillette MD PCP - General Internal Medicine 12/25/20 06/28/21 [facility], Pcp PCP - General Internal Medicine 06/29/21 11/14/21 Napoleon Linda [address] [place] [address] PCP - General Internal Medicine 11/15/21 04/20/22 [facility], Pcp PCP - General Internal Medicine 04/21/22 documented as of this encounter
--- OUTSIDE RECORDS SUMMARY | 2024-05-30 08:58 | XMS_ITS | Encounter Summary ---
Author Organization [employer] Address [address] [place] [address] 7[address] [place] [address] Care Team Providers Care Base Engineer Name Role Phone Unavailable Primary Care Provider Unavailabl e Encounter Details Date Type Department Care Team (Latest Contact Info) Description 12/24/2021 Abstract [facility] CONVERSIONS Dental, Provider, DDS Social History [...] Description 09/13/2024 3:00 PM EDT Office Visit [facility] ADULT DENTAL [address] [place] [address] Delaney, Madeline [address] [place] [address] documented as of this encounter Visit Diagnoses Not on filedocumented in this encounter
--- OUTSIDE RECORDS SUMMARY | 2024-05-30 08:58 | XMS_ITS | Encounter Summary ---
Author Organization [facility] Address [address] [place] [address] Care Team Providers Care Auto Service Instructor Name Role Phone Robinson Howe MD Primary Care Provider [phone] Jesus Monterroso MD Primary Care Provider Abram Flores MD Primary Care Provider Unavailab Michael Duvall MD Primary Care Provider Driss nguyen [facility], Pcp Primary Care Provider Unavailabl e Napoleon Linda Primary Care Provider [phone] [facility], Pcp Primary Care Provider Unavailabl e Reason for Visit * Reason Onset Date Comments Faxed Refill 02/09/2020 Encounter Details Date Type Department Care Team Description 02/09/2020 Refill Adult Medicine [address] [id number] Robinson Howe MD [address] [place] [address] [phone] Faxed Refill Social History Tobacco Use Types [...] ?? Patients current insurance carrier is: Payor: [facility] MCR / Plan: HMO $0 [facility] [id number] / Product Type: HMO [id number] ?? documented in this encounter Plan of Treatment Not on file documented as of this encounter Visit Diagnoses Not on filedocumented in this encounter Care Teams Auto Service Instructor Relationship Specialty Start Date End Date Robinson Howe MD [address] [place] [address] PCP - General Internal Medicine 11/03/14 04/13/20 Jesus Monterroso MD [address] [place] [address] PCP - General Internal Medicine 04/14/20 07/05/20 Abram Gardner MD [address] [place], [place] [id number] PCP - General Internal Medicine 07/06/20 12/24/20 Michael Gillette MD [address] [place], [place] [id number] PCP - General Internal Medicine 12/25/20 06/28/21 [facility], Pcp [address] [place] [address] PCP - General Internal Medicine 06/29/21 11/14/21 Napoleon Linda [address] [place], [place] [phone] PCP - General Internal Medicine 11/15/21 04/20/22 [facility], Pcp [address] [place], [place] [phone] PCP - General Internal Medicine 04/21/22 documented as of this encounter
--- OUTSIDE RECORDS SUMMARY | 2024-05-30 08:58 | XMS_ITS | Encounter Summary ---
Author Organization [facility] Address [address] [place] [address] Care Team Providers Care Legal Project Manager Name Role Phone Robinson Howe MD Primary Care Provider [phone] Jesus Monterroso MD Primary Care Provider Abram Flores MD Primary Care Provider UnavailMichael Elmore MD Primary Care Provider Driss nguyen [facility], Pcp Primary Care Provider UnavailNapoleon White Primary Care Provider [phone] [facility], Pcp Primary Care Provider Maria T grace Encounter Details Date Type Department Care Team Description 12/02/2019 Orders Only Adult Medicine [address] [address] Jordan Soto, DAINA Cough (Primary Dx) Social [...] Primary documented in this encounter Care Teams Legal Project Manager Relationship Specialty Start Date End Date Robinson Howe MD [address] [place] [address] PCP - General Internal Medicine 11/03/14 04/13/20 Jesus Monterroso MD [address] [place] [address] PCP - General Internal Medicine 04/14/20 07/05/20 Abram Gardner MD [address] [place] [address] PCP - General Internal Medicine 07/06/20 12/24/20 Michael Gillette MD [address] [place] [address] PCP - General Internal Medicine 12/25/20 06/28/21 [facility], Pcp [address] [place] [address] PCP - General Internal Medicine 06/29/21 11/14/21 Naopleon Linda [address] [place] [address] PCP - General Internal Medicine 11/15/21 04/20/22 [facility], Pcp [address] [place] [address] PCP - General Internal Medicine 04/21/22 documented as of this encounter
--- OUTSIDE RECORDS SUMMARY | 2024-05-30 08:58 | XMS_ITS | Encounter Summary ---
Author Organization [facility] Address [address] [place] [address] Care Team Providers Care Shaper And Presser Name Role Phone Robinson Howe MD Primary Care Provider [phone] Jesus Monterroso MD Primary Care Provider Abram Flores MD Primary Care Provider Unavailab Michael Duvall MD Primary Care Provider Driss nguyen [facility], Pcp Primary Care Provider UnavailNapoleon White Primary Care Provider [phone] [facility], Pcp Primary Care Provider Unavailguido e Encounter Details Date Type Department Care Team Description 03/03/2020 Refill Gastroenterology - Needles [address] [facility] [address] [place] [id number] Tien Xiong MD [address] [facility] [address] [place] [address] Social History Tobacco Use Types Packs/Day Years [...] on filedocumented in this encounter Care Teams Shaper And Presser Relationship Specialty Start Date End Date Robinson Howe MD [address] [place] [address] PCP - General Internal Medicine 11/03/14 04/13/20 Jesus Monterroso MD [address] [place] [address] PCP - General Internal Medicine 04/14/20 07/05/20 Abram Gardner MD [address] [place] [address] PCP - General Internal Medicine 07/06/20 12/24/20 Michael Gillette MD [address] [place] [address] PCP - General Internal Medicine 12/25/20 06/28/21 [facility], Pcp [address] [place] [address] PCP - General Internal Medicine 06/29/21 11/14/21 Napoleon Linda [address] [place] [address] PCP - General Internal Medicine 11/15/21 04/20/22 [facility], Pcp [address] [place] [address] PCP - General Internal Medicine 04/21/22 documented as of this encounter
--- OUTSIDE RECORDS SUMMARY | 2024-05-30 08:59 | XMS_ITS | Encounter Summary ---
Author Organization [facility] Address [address] [place] [address] Care Team Providers Care Gas Desulfurizer Name Role Phone Ruddy Cruz MD Primary Care Provider Unavail able Robinson Howe MD Primary Care Provider [phone] Jesus Monterroso MD Primary Care Provider Abram Flores MD Primary Care Provider Unavailab Michael Duvall MD Primary Care Provider Unavai patrick [facility], Pcp Primary Care Provider Unavailabl Napoleon Ramirez Primary Care Provider [phone] [facility], Pcp Primary Care Provider Unavailabl e Reason for Visit * Reason Onset Date Comments Faxed Order 06/09/2014 Encounter Details Date Type Department Care Team Description 06/09/2014 Telephone Adult Medicine [address] [address] Karlos Edwards MD Faxed Order Social History [...] on filedocumented in this encounter Care Teams Gas Desulfurizer Relationship Specialty Start Date End Date Ruddy Cruz MD PCP - General Internal Medicine 12/19/13 11/02/14 Robinson Howe MD [address] [place] [address] PCP - General Internal Medicine 11/03/14 04/13/20 Jesus Monterroso MD [address] [place] [address] PCP - General Internal Medicine 04/14/20 07/05/20 Abram Gardner MD [address] [place] [address] PCP - General Internal Medicine 07/06/20 12/24/20 Michael Gillette MD [address] [place] [address] PCP - General Internal Medicine 12/25/20 06/28/21 [facility], Pcp [address] [place] [address] PCP - General Internal Medicine 06/29/21 11/14/21 Napoleon Linda [address] [place] [address] PCP - General Internal Medicine 11/15/21 04/20/22 [facility], Pcp [address] [place] [address] PCP - General Internal Medicine 04/21/22 documented as of this encounter
--- OUTSIDE RECORDS SUMMARY | 2024-05-30 08:59 | XMS_ITS | Encounter Summary ---
Author Organization [facility] Address [address] [place] [address] Care Team Providers Care Ordnance Handler Name Role Phone Robinson Howe MD Primary Care Provider + [phone] Jesus Monterroso MD Primary Care Provider Abram Flores MD Primary Care Provider Michael Hinojosa MD Primary Care Provider Driss nguyen [facility], Pcp Primary Care Provider Napoleon Mejia Primary Care Provider [phone] [facility], Pcp Primary Care Provider Maria T grace Encounter Details Date Type Department Care Team Description 06/07/2016 Business Doc Medical Records [address] [place] [id number] Abstract, Provider Social History Tobacco Use Types [...] on filedocumented in this encounter Care Teams Ordnance Handler Relationship Specialty Start Date End Date Robinson Howe MD [address] [place] [address] PCP - General Internal Medicine 11/03/14 04/13/20 Jesus Monterroso MD [address] [place] [address] PCP - General Internal Medicine 04/14/20 07/05/20 Abram Gardner MD [address] [place] [address] PCP - General Internal Medicine 07/06/20 12/24/20 Michael Gillette MD [address] [place] [address] PCP - General Internal Medicine 12/25/20 06/28/21 [facility], Pcp [address] [place], [place] [address] PCP - General Internal Medicine 06/29/21 11/14/21 Napoleon Linda [address] [place] [address] PCP - General Internal Medicine 11/15/21 04/20/22 [facility], Pcp [address] [place] [address] PCP - General Internal Medicine 04/21/22 documented as of this encounter
--- OUTSIDE RECORDS SUMMARY | 2024-05-30 08:59 | XMS_ITS | Encounter Summary ---
Author Organization [facility] Address [address] [place] [address] Care Team Providers Care 3Rd Pressman Name Role Phone Ruddy Cruz MD Primary Care Provider Unavail able Robinson Howe MD Primary Care Provider [phone] Jesus Monterroso MD Primary Care Provider Abram Flores MD Primary Care Provider Unavailab Michael Duvall MD Primary Care Provider Driss nguyen [facility], Pcp Primary Care Provider UnavailNapoleon White Primary Care Provider [phone] [facility], Pcp Primary Care Provider Unavailguido e Encounter Details Date Type Department Care Team Description 03/25/2014 Home Health Certification Medical Records [address] [place] [id number] Abstract, Provider Social History Tobacco Use Types [...] on filedocumented in this encounter Care Teams 3Rd Pressman Relationship Specialty Start Date End Date Ruddy Cruz MD PCP - General Internal Medicine 12/19/13 11/02/14 Robinson Howe MD [address] [place] [address] [phone] PCP - General Internal Medicine 11/03/14 04/13/20 Jesus Monterroso MD [address] [place] [address] PCP - General Internal Medicine 04/14/20 07/05/20 Abram Gardner MD [address] [place] [address] PCP - General Internal Medicine 07/06/20 12/24/20 Michael Gillette MD [address] [place] [address] PCP - General Internal Medicine 12/25/20 06/28/21 [facility], Pcp [address] [place] [address] PCP - General Internal Medicine 06/29/21 11/14/21 Napoleon Linda [address] [place] [address] PCP - General Internal Medicine 11/15/21 04/20/22 [facility], Pcp [address] [place] [address] PCP - General Internal Medicine 04/21/22 documented as of this encounter
--- OUTSIDE RECORDS SUMMARY | 2024-05-30 08:59 | XMS_ITS | Encounter Summary ---
Author Organization [facility] Address [address] [place] [address] Care Team Providers Care Piano Sounding Board Matcher Name Role Phone Louisa Machuca MD Primary Care Provider Unavailable Ruddy Cruz MD Primary Care Provider Unavail able Robinson Howe MD Primary Care Provider [phone] Jesus Monterroso MD Primary Care Provider Abram Flores MD Primary Care Provider Unavailab Michael Duvall MD Primary Care Provider Driss nguyen [facility], Pcp Primary Care Provider UnavailNapoleon White Primary Care Provider [phone] [facility], Pcp Primary Care Provider Maria T grace Encounter Details Date Type Department Care Team Description 12/18/2013 Business Doc Medical Records [address] [place] [id number] Abstract, Provider Social History Tobacco Use Types [...] on filedocumented in this encounter Care Teams Piano Sounding Board Matcher Relationship Specialty Start Date End Date Louisa Machuca MD PCP - General Internal Medicine 07/17/13 Ruddy Cruz MD PCP - General Internal Medicine 12/19/13 11/02/14 Robinson Howe MD [address] [place] [address] PCP - General Internal Medicine 11/03/14 04/13/20 Jesus Monterroso MD [address] [place] [address] PCP - General Internal Medicine 04/14/20 07/05/20 Abram Gardner MD [address] [place] [address] PCP - General Internal Medicine 07/06/20 12/24/20 Michael Gillette MD [address] [place] [address] PCP - General Internal Medicine 12/25/20 06/28/21 [facility], Pcp [address] [place] [address] PCP - General Internal Medicine 06/29/21 11/14/21 Napoleon Linda [address] [place] [address] PCP - General Internal Medicine 11/15/21 04/20/22 [facility], Pcp [address] [place] [address] PCP - General Internal Medicine 04/21/22 documented as of this encounter
--- OUTSIDE RECORDS SUMMARY | 2024-05-30 08:59 | XMS_ITS | Encounter Summary ---
Author Organization [facility] Address [address] [place] [address] Care Team Providers Care Warehouse Production Worker Name Role Phone Ruddy Cruz MD Primary Care Provider Unavail able Robinson Howe MD Primary Care Provider [phone] Jesus Monterroso MD Primary Care Provider Abram Flores MD Primary Care Provider Unavailab Michael Duvall MD Primary Care Provider Mariaelenavagabriel nguyen [facility], Pcp Primary Care Provider UnavailNapoleon White Primary Care Provider [phone] [facility], Pcp Primary Care Provider Unavailabl e Encounter Details Date Type Department Care Team Description 05/02/2014 Transfer Records Medical Records [address] [place] [id number] [place] [id number] Social History Tobacco Use Types Packs/Day Years [...] on filedocumented in this encounter Care Teams Warehouse Production Worker Relationship Specialty Start Date End Date Ruddy Cruz MD PCP - General Internal Medicine 12/19/13 11/02/14 Robinson Howe MD [address] [place] [address] PCP - General Internal Medicine 11/03/14 04/13/20 Jesus Monterroso MD [address] [place] [address] PCP - General Internal Medicine 04/14/20 07/05/20 Abram Gardner MD [address] [place] [address] PCP - General Internal Medicine 07/06/20 12/24/20 Michael Gillette MD [address] [place] [address] PCP - General Internal Medicine 12/25/20 06/28/21 [facility], Pcp [address] [place] [address] PCP - General Internal Medicine 06/29/21 11/14/21 Napoleon Linda [address] [place] [address] PCP - General Internal Medicine 11/15/21 04/20/22 [facility], Pcp [address] [place] [address] PCP - General Internal Medicine 04/21/22 documented as of this encounter
--- OUTSIDE RECORDS SUMMARY | 2024-05-30 08:59 | XMS_ITS | Encounter Summary ---
Author Organization [facility] Address [address] [place] [address] Care Team Providers Care Tax Processor Name Role Phone Ruddy Cruz MD Primary Care Provider Unavail able Robinson Howe MD Primary Care Provider [phone] Jesus Monterroso MD Primary Care Provider Abram Flores MD Primary Care Provider Unavailab Michael Duvall MD Primary Care Provider Mariaelenavagabriel nguyen [facility], Pcp Primary Care Provider UnavailNapoleon White Primary Care Provider [phone] [facility], Pcp Primary Care Provider Unavailabl e Encounter Details Date Type Department Care Team Description 09/11/2014 Business Doc Medical Records [address] [place] [id number] Abstract, Provider Social History Tobacco Use Types [...] on filedocumented in this encounter Care Teams Tax Processor Relationship Specialty Start Date End Date Ruddy Cruz MD PCP - General Internal Medicine 12/19/13 11/02/14 Robinson Howe MD [address] [place] [address] [id number] PCP - General Internal Medicine 11/03/14 04/13/20 Jesus Monterroso MD [address] [place] [address] PCP - General Internal Medicine 04/14/20 07/05/20 Abram Gardner MD [address] [place] [address] PCP - General Internal Medicine 07/06/20 12/24/20 Michael Gillette MD [address] [place] [address] PCP - General Internal Medicine 12/25/20 06/28/21 [facility], Pcp [address] [place] [address] PCP - General Internal Medicine 06/29/21 11/14/21 Napoleon Linda [address] [place], [place] [phone] PCP - General Internal Medicine 11/15/21 04/20/22 [facility], Pcp [address] [place] [address] PCP - General Internal Medicine 04/21/22 documented as of this encounter
--- OUTSIDE RECORDS SUMMARY | 2024-05-30 08:59 | XMS_ITS | Encounter Summary ---
Author Organization [facility] Address [address] [place] [address] Care Team Providers Care Garde Manager Name Role Phone Robinson Howe MD Primary Care Provider + [phone] Jesus Monterroso MD Primary Care Provider Abram Flores MD Primary Care Provider Unavailab Michael Duvall MD Primary Care Provider Driss nguyen [facility] Primary Care Provider Unavailabl Napoleon Ramirez Primary Care Provider [phone] [facility] Primary Care Provider Unavailabl e Reason for Visit * Reason Onset Date Comments APPOINTMENT 09/10/2018 Encounter Details Date Type Department Care Team Description 09/10/2018 Telephone Podiatry - [address] [id number] Candido Nina DO APPOINTMENT Social History Tobacco [...] the daughter to have someone that speaks french come with her because there may have been a communication issue when the patient was here last withthe measuring machine tender phone. She is scheduled on 10/04. GIANCARLO [...] call the patient x 2 with the marketing strategy lead phone. No anser, no voicemail. I spoke [...] procedure for this appointment. She is a Yakut speaker, so is requsting someone that can speak Yakut. Please follow up and advise patient. documented in this encounter Plan of Treatment Not on file documented as of this encounter Visit Diagnoses Not on filedocumented in this encounter Care Teams Garde Manager Relationship Specialty Start Date End Date Robinson Howe MD [address] [place] [address] PCP - General Internal Medicine 11/03/14 04/13/20 Jesus Monterroso MD [address] [place] [address] PCP - General Internal Medicine 04/14/20 07/05/20 Abram Gardner MD [address] [place] [address] PCP - General Internal Medicine 07/06/20 12/24/20 Michael Gillette MD [address] [place] [address] PCP - General Internal Medicine 12/25/20 06/28/21 [facility] [address] [place] [address] PCP - General Internal Medicine 06/29/21 11/14/21 Napoleon Linda [address] [place] [address] PCP - General Internal Medicine 11/15/21 04/20/22 [facility]cp [address] [place] [address] PCP - General Internal Medicine 04/21/22 documented as of this encounter
--- OUTSIDE RECORDS SUMMARY | 2024-05-30 08:59 | XMS_ITS | Encounter Summary ---
Author Organization [facility] Address [address] [place] [address] Care Team Providers Care Retail Department Supervisor Name Role Phone Robinson Howe MD Primary Care Provider + [phone] Jesus Monterroso MD Primary Care Provider Abram Flores MD Primary Care Provider Michael Hinojosa MD Primary Care Provider Driss nguyen [facility], Pcp Primary Care Provider Napoleon Mejia Primary Care Provider [phone] [facility], Pcp Primary Care Provider Maria T grace Encounter Details Date Type Department Care Team Description 08/15/2018 Bobbin Inspector Report Medical Records [address] [place] [address] Becky Dolan MD Social History Tobacco Use [...] on filedocumented in this encounter Care Teams Retail Department Supervisor Relationship Specialty Start Date End Date Robinson Howe MD [address] [place] [address] PCP - General Internal Medicine 11/03/14 04/13/20 Jesus Monterroso MD [address] [place] [address] PCP - General Internal Medicine 04/14/20 07/05/20 Abram Gardner MD [address] [place] [address] PCP - General Internal Medicine 07/06/20 12/24/20 Michael Gillette MD [address] [place] [address] PCP - General Internal Medicine 12/25/20 06/28/21 [facility], Pcp [address] [place], [place] [phone] PCP - General Internal Medicine 06/29/21 11/14/21 Napoleon Linda [address] [place] [address] PCP - General Internal Medicine 11/15/21 04/20/22 [facility], Pcp [address] [place] [address] PCP - General Internal Medicine 04/21/22 documented as of this encounter
--- OUTSIDE RECORDS SUMMARY | 2024-05-30 08:59 | XMS_ITS | Encounter Summary ---
Author Organization [facility] Address [address] [place] [address] Care Team Providers Care Wedding Cake Designer Name Role Phone Robinson Howe MD Primary Care Provider + [phone] Jesus Monterroso MD Primary Care Provider Abram Flores MD Primary Care Provider Unavailab Michael Duvall MD Primary Care Provider Unavagabriel nguyen [facility], Pcp Primary Care Provider UnavailNapoleon White Primary Care Provider [phone] [facility], Pcp Primary Care Provider Unavailguido e Encounter Details Date Type Department Care Team Description 06/27/2016 Orders Only Medical Records [address] [place] [address] Alexandria Todd MD [address] [place] [address] [facility] [place] [id number] Social History Tobacco Use Types Packs/Day Years [...] on filedocumented in this encounter Care Teams Wedding Cake Designer Relationship Specialty Start Date End Date Robinson Howe MD [address] [place] [address] PCP - General Internal Medicine 11/03/14 04/13/20 Jesus Monterroso MD [address] [place] [address] PCP - General Internal Medicine 04/14/20 07/05/20 Abram Gardner MD [address] [place] [address] PCP - General Internal Medicine 07/06/20 12/24/20 Michael Gillette MD [address] [place] [address] PCP - General Internal Medicine 12/25/20 06/28/21 [facility], Pcp [address] [place] [address] PCP - General Internal Medicine 06/29/21 11/14/21 Napoleon Linda [address] [place] [address] PCP - General Internal Medicine 11/15/21 04/20/22 [facility], Pcp [address] [place] [address] PCP - General Internal Medicine 04/21/22 documented as of this encounter
--- OUTSIDE RECORDS SUMMARY | 2024-05-30 08:59 | XMS_ITS | Encounter Summary ---
Author Organization [facility] Address [address] [place] [address] Care Team Providers Care Contract Serviceman Name Role Phone Robinson Howe MD Primary Care Provider + [phone] Jesus Monterroso MD Primary Care Provider Abram Flores MD Primary Care Provider Unavailab Michael Duvall MD Primary Care Provider Driss nguyen [facility], Pcp Primary Care Provider UnavailNapoleon White Primary Care Provider [facility], Pcp Primary Care Provider Unavailabl e Reason for Visit * Reason Comments E-prescribe Rx Request Encounter Details Date Type Department Care Team Description 04/24/2019 Refill Adult Medicine [address] [address] Jerod Daniel PA-C [address] [place] [address] E-prescribe Rx Request Social History Tobacco Use [...] N/A Patients current insurance carrier is: [facility] M[facility] / Plan: HMO [facility]0 [facility] [id number] / Product Type: HMO [id number] documented in this encounter Plan of Treatment [...] reflux documented in this encounter Care Teams Contract Serviceman Relationship Specialty Start Date End Date Robinson Howe MD [address] [place] [address] PCP - General Internal Medicine 11/03/14 04/13/20 Jesus Monterroso MD [address] [place] [address] PCP - General Internal Medicine 04/14/20 07/05/20 Abram Gardner MD [address] [place], [place] [phone] PCP - General Internal Medicine 07/06/20 12/24/20 Michael Gillette MD [address] [place] [address] PCP - General Internal Medicine 12/25/20 06/28/21 [facility], Pcp [address] [place] [address] PCP - General Internal Medicine 06/29/21 11/14/21 Napoleon Linda [address] [place] [address] PCP - General Internal Medicine 11/15/21 04/20/22 [facility], Pcp [address] [place], [place] [phone] PCP - General Internal Medicine 04/21/22 documented as of this encounter
--- OUTSIDE RECORDS SUMMARY | 2024-05-30 08:59 | XMS_ITS | Encounter Summary ---
Author Organization [facility] Address [address] [place] [address] Care Team Providers Care Compliance Consultant Name Role Phone Robinson Howe MD Primary Care Provider + [phone] Jesus Monterroso MD Primary Care Provider Abram Flores MD Primary Care Provider Unavailab Michael Duvall MD Primary Care Provider Driss nguyen [facility], Pcp Primary Care Provider Unavailabl e Napoleon Linda Primary Care Provider [phone] [facility], Pcp Primary Care Provider Unavailabl e Reason for Visit * Reason Onset Date Comments Testing 06/28/2016 Encounter Details Date Type Department Care Team Description 06/28/2016 Telephone Radiology - [address] [phone] Jerod Daniel PA-C [address] [place] [address] [id number] Testing Social History Tobacco Use Types Packs/Day [...] on filedocumented in this encounter Care Teams Compliance Consultant Relationship Specialty Start Date End Date Robinson Howe MD [address] [place] [address] PCP - General Internal Medicine 11/03/14 04/13/20 Jesus Monterroso MD [address] [place] [address] PCP - General Internal Medicine 04/14/20 07/05/20 Abram Gardner MD [address] [place] [address] PCP - General Internal Medicine 07/06/20 12/24/20 Michael Gillette MD [address] [place] [address] PCP - General Internal Medicine 12/25/20 06/28/21 [facility], Pcp [address] [place] [address] PCP - General Internal Medicine 06/29/21 11/14/21 Napoleon Linda [address] [place] [address] PCP - General Internal Medicine 11/15/21 04/20/22 [facility], Pcp [address] [place] [address] PCP - General Internal Medicine 04/21/22 documented as of this encounter
--- OUTSIDE RECORDS SUMMARY | 2024-05-30 08:59 | XMS_ITS | Encounter Summary ---
Author Organization [facility] Address [address] [place] [address] Care Team Providers Care Pharmacy Tech Name Role Phone Robinson Howe MD Primary Care Provider + [phone] Jesus Monterroso MD Primary Care Provider Abram Flores MD Primary Care Provider Michael Hinojosa MD Primary Care Provider Driss nguyen [facility] Pcp Primary Care Provider Napoleon Mejia Primary Care Provider [phone] [facility] Primary Care Provider Maria T grace Encounter Details Date Type Department Care Team Description 09/25/2018 Release of Information Medical Records [address] [place] [address] Abstract, Provider Social History Tobacco Use Types [...] on filedocumented in this encounter Care Teams Pharmacy Tech Relationship Specialty Start Date End Date Robinson Howe MD [address] [place] [address] PCP - General Internal Medicine 11/03/14 04/13/20 Jesus Monterroso MD [address] [place] [address] PCP - General Internal Medicine 04/14/20 07/05/20 Abram Gardner MD [address] [place] [address] PCP - General Internal Medicine 07/06/20 12/24/20 Michael Gillette MD [address] [place] [address] PCP - General Internal Medicine 12/25/20 06/28/21 [facility] [address] [place], [place] [phone] PCP - General Internal Medicine 06/29/21 11/14/21 Napoleon Linda [address] [place] [address] PCP - General Internal Medicine 11/15/21 04/20/22 [facility]cp [address] [place] [address] PCP - General Internal Medicine 04/21/22 documented as of this encounter
--- OUTSIDE RECORDS SUMMARY | 2024-05-30 08:59 | XMS_ITS | Encounter Summary ---
Author Organization [facility] Address [address] [place] [address] Care Team Providers Care Mount Loader Name Role Phone Robinson Howe MD Primary Care Provider + [phone] Jesus Monterroso MD Primary Care Provider Abram Flores MD Primary Care Provider Unavailab Michael Duvall MD Primary Care Provider Driss nguyen [facility], Pcp Primary Care Provider UnavailNapoleon White Primary Care Provider [facility], Pcp Primary Care Provider Unavailabl e Reason for Visit * Reason Comments E-prescribe Rx Request Encounter Details Date Type Department Care Team Description 06/22/2016 Refill Adult Medicine [address] [address] Jerod Daniel PA-C [address] [place] [address] [phone] E-prescribe Rx Request Social History Tobacco Use [...] Telephone Encounter - Tiffanie Hough M.A. - 06/22/2016 11:54 AM EDT Component Value Date NA 139 02/23/2016 K 4.3 02/23/2016 CO2 26.5 02/23/2016 CL 100 02/23/2016 BUN 14 02/23/2016 CREAT 0.7 02/23/2016 GLU 92 02/23/2016 CA 9.9 02/23/2016 GFR > 60 02/23/2016 * Telephone Encounter - Minnie Long - 06/22/2016 10:50 AM EDT Patient would like script to be: E-PRESCRIBED/FAXED TO PHARMACY WHEN WAS THE PATIENT'S LAST APPOINTMENT IN ADULT MEDICINE? 04/26/16 WHEN WAS THE LAST TIME THE PATIENT SAW THEIR PCP? 04/16/15 Does patient have an upcoming appointment? Yes 06/22/16 (THE MEDICATION REQUESTED IS ON THE MED LIST ABOVE) All of the medications requested were on the CURRENT MEDS list Did you check the Pharmacy information above?: YES Patient wants: 90 -day supply Is this a mail order prescription request ? NO Patients current insurance [place] is: [place] / [place] / Product Type: MEDICARE [id number] documented in this encounter Plan of Treatment Not on file documented as of this encounter Visit Diagnoses Not on filedocumented in this encounter Care Teams Mount Loader Relationship Specialty Start Date End Date Robinson Howe MD [address] [place] [address] PCP - General Internal Medicine 11/03/14 04/13/20 Jesus Monterroso MD [address] [place] [address] PCP - General Internal Medicine 04/14/20 07/05/20 Abram Gardner MD [address] [place] [address] PCP - General Internal Medicine 07/06/20 12/24/20 Michael Gillette MD [address] [place] [address] PCP - General Internal Medicine 12/25/20 06/28/21 [facility], Pcp [address] [place], [place] [phone] PCP - General Internal Medicine 06/29/21 11/14/21 Napoleon Linda [address] [place] [address] PCP - General Internal Medicine 11/15/21 04/20/22 [facility], Pcp [address] [place] [address] PCP - General Internal Medicine 04/21/22 documented as of this encounter
--- OUTSIDE RECORDS SUMMARY | 2024-05-30 08:59 | XMS_ITS | Encounter Summary ---
Author Organization [facility] Address [address] [place] [address] Care Team Providers Care Wrapper Sizer Name Role Phone Louisa Machuca MD Primary Care Provider Unavailable Ruddy Cruz MD Primary Care Provider Unavail able Robinson Howe MD Primary Care Provider + [phone] Jesus Monterroso MD Primary Care Provider Abram Flores MD Primary Care Provider Unavailab Michael Duvall MD Primary Care Provider Mariaelenavagabriel nguyen [facility], Pcp Primary Care Provider UnavailNapoleon White Primary Care Provider [phone] [facility] Pcp Primary Care Provider Unavailguido grace Encounter Details Date Type Department Care Team Description 11/20/2013 Orders Only Podiatry - [address] [address] Devan Durbin DPM Social History Tobacco Use [...] on filedocumented in this encounter Care Teams Wrapper Sizer Relationship Specialty Start Date End Date Louisa Machuca MD PCP - General Internal Medicine 07/17/13 Ruddy Cruz MD PCP - General Internal Medicine 12/19/13 11/02/14 Robinson Howe MD [address] [place] [address] PCP - General Internal Medicine 11/03/14 04/13/20 Jesus Monterroso MD [address] [place] [address] PCP - General Internal Medicine 04/14/20 07/05/20 Abram Gardner MD [address] [place], [place] [phone] PCP - General Internal Medicine 07/06/20 12/24/20 Michael Gillette MD [address] [place] [address] PCP - General Internal Medicine 12/25/20 06/28/21 [facility], Pcp [address] [place] [address] PCP - General Internal Medicine 06/29/21 11/14/21 Napoleon Linda [address] [place] [address] PCP - General Internal Medicine 11/15/21 04/20/22 [facility], Pcp [address] [place] [address] PCP - General Internal Medicine 04/21/22 documented as of this encounter
--- OUTSIDE RECORDS SUMMARY | 2024-05-30 08:59 | XMS_ITS | Encounter Summary ---
Author Organization [facility] Address [address] [place] [address] Care Team Providers Care Stuntman Name Role Phone Robinson Howe MD Primary Care Provider + [phone] Jesus Monterroso MD Primary Care Provider Abram Flores MD Primary Care Provider Unavailab Michael Duvall MD Primary Care Provider Driss nguyen [facility], Pcp Primary Care Provider Unavailabl e Napoleon Linda Primary Care Provider [phone] [facility], Pcp Primary Care Provider Unavailabl e Reason for Visit * Reason Onset Date Comments TEST RESULTS 07/06/2016 Encounter Details Date Type Department Care Team Description 07/06/2016 Telephone Adult [address] [phone] Robinson Howe MD [address] [place] [address] [phone] TEST RESULTS Social History Tobacco Use Types Packs/Day Years [...] Telephone Encounter - Jerod Daniel PA-C - 07/07/2016 1:13 PM EDT Nope same situation Jerod Daniel PA-C * Telephone Encounter - Alexandria Todd MD - 07/07/2016 1:09 PM EDT Chucky Chase. I saw the patient last week, and the plan was to see ortho for second opinion and to do PTfirst, then I see her after both of those for reeval. Unless there is a new thing that happened since I saw her last week? * Telephone Encounter - Jerod Daniel PA-C - 07/06/2016 4:50 PM EDT Spoke with patient about results. Does not look very typical for infection which is reassuring. Sheis wondering if she can be seen any sooner by Dr. Diamond. I'm not sure about this. She does have a follow-up coming up in about 3 weeks. I will route this to Dr. Diamond to see if the patient can be accommodated sooner. Jerod Daniel PA-C * Telephone Encounter - Robinson Howe MD - 07/06/2016 3:44 PM EDT Test was ordered by Chase ladd * Telephone Encounter - Miles Junior - 07/06/2016 3:13 PM EDT Inform patient: ANY URGENT OR ABNORMAL RESULTS WIILL RESULT IN A CALL BACK TO THE PATIENT GRACE. Type of test: :Bone test Date test was performed: 07/01/16 Where was the test performed: [facility] Who ordered this test?: Jerod Daniel Is the doctor here today?: YES Can the message wait until the doctor returns?: YES IF PATIENT'S PCP IS NOT IN INSTRUCT PATIENT THAT THEY WILL RECEIVE A CALL BACK WHEN THE PCP IS IN THE OFFICE NEXT. documented in this encounter Plan of Treatment Not on file documented as of this encounter Visit Diagnoses Not on filedocumented in this encounter Care Teams Stuntman Relationship Specialty Start Date End Date Robinson Howe MD [address] [place] [address] PCP - General Internal Medicine 11/03/14 04/13/20 Jesus Monterroso MD [address] [place] [address] PCP - General Internal Medicine 04/14/20 07/05/20 Abram Gardner MD [address] [place] [address] PCP - General Internal Medicine 07/06/20 12/24/20 Michael Gillette MD [address] [place] [address] PCP - General Internal Medicine 12/25/20 06/28/21 [facility], Pcp [address] [place] [address] PCP - General Internal Medicine 06/29/21 11/14/21 Napoleon Linda [address] [place], [place] [phone] PCP - General Internal Medicine 11/15/21 04/20/22 [facility], Pcp [address] [place] [address] PCP - General Internal Medicine 04/21/22 documented as of this encounter
--- OUTSIDE RECORDS SUMMARY | 2024-05-30 08:59 | XMS_ITS | Encounter Summary ---
Author Organization [facility] Address [address] [place] [address] Care Team Providers Care Cotton Opener Name Role Phone Abram Gardner MD Primary Care Provider Michael Hinojosa MD Primary Care Provider [facility] Primary Care Provider Napoleon Mejia Primary Care Provider [phone] [facility], Pcp Primary Care Provider Maria T grace Encounter Details Date Type Department Care Team Description 08/05/2020 Telephone Adult Medicine [address] [address] Abram Gardner MD Social History Tobacco Use [...] on filedocumented in this encounter Care Teams Cotton Opener Relationship Specialty Start Date End Date Abram Gardner MD PCP - General Internal Medicine 07/06/20 12/24/20 Michael Gillette MD PCP - General Internal Medicine 12/25/20 06/28/21 [facility], Pcp PCP - General Internal Medicine 06/29/21 11/14/21 Napoleon Lnida [address] [place] [address] PCP - General Internal Medicine 11/15/21 04/20/22 [facility]cp PCP - General Internal Medicine 04/21/22 documented as of this encounter
--- OUTSIDE RECORDS SUMMARY | 2024-05-30 08:59 | XMS_ITS | Encounter Summary ---
Author Organization [facility] Address [address] [place] [address] Care Team Providers Care Barrel Straightener Name Role Phone Abram Gardner MD Primary Care Provider Michael Hinojosa MD Primary Care Provider Driss nguyen [facility], Pcp Primary Care Provider Napoleon Mejia Primary Care Provider [phone] [facility] Pcp Primary Care Provider Unavailabl e Reason for Visit * Reason Comments E-prescribe Rx Request Encounter Details Date Type Department Care Team Description 10/27/2020 Refill Adult Medicine [address] [address] Jerod Daniel PA-C [address] [place] [address] E-prescribe Rx Request Social History Tobacco Use [...] carrier is: Payor: [facility] MCR / Plan: O $0 [facility] [id number] / Product Type: HMO [id number] documented in this encounter Plan of Treatment [...] exacerbation documented in this encounter Care Teams Barrel Straightener Relationship Specialty Start Date End Date Abram Gardner MD PCP - General Internal Medicine 07/06/20 12/24/20 Michael Gillette MD PCP - General Internal Medicine 12/25/20 06/28/21 [facility] PCP - General Internal Medicine 06/29/21 11/14/21 Napoleon Linda [address] [place] [address] PCP - General Internal Medicine 11/15/21 04/20/22 [facility]cp PCP - General Internal Medicine 04/21/22 documented as of this encounter
--- OUTSIDE RECORDS SUMMARY | 2024-05-30 08:59 | XMS_ITS | Encounter Summary ---
Author Organization [facility] Address [address] [place] [address] Care Team Providers Care Armorer Technician Name Role Phone Robinson Howe MD Primary Care Provider + [phone] Jesus Monterroso MD Primary Care Provider Abram Flores MD Primary Care Provider Michael Hinojosa MD Primary Care Provider Driss nguyen [facility], Pcp Primary Care Provider Napoleon Mejia Primary Care Provider [phone] [facility], Pcp Primary Care Provider Maria T grace Encounter Details Date Type Department Care Team Description 11/07/2016 Business Doc Medical Records [address] [place] [address] 14553 Abstract, Provider Social History Tobacco Use Types [...] on filedocumented in this encounter Care Teams Armorer Technician Relationship Specialty Start Date End Date Robinson Howe MD [address] [place] [address] 01020 PCP - General Internal Medicine 11/03/14 04/13/20 Jesus Monterroso MD [address] [place] [address] 03050 PCP - General Internal Medicine 04/14/20 07/05/20 Abram Gardner MD [address] [place] [address] 48335 PCP - General Internal Medicine 07/06/20 12/24/20 Michael Gillette MD [address] [place] [address] 18974 PCP - General Internal Medicine 12/25/20 06/28/21 [facility], Pcp [address] [place], [place] [phone] PCP - General Internal Medicine 06/29/21 11/14/21 Napoleon Linda [address] [place] [address] 57177 PCP - General Internal Medicine 11/15/21 04/20/22 [facility], Pcp [address] [place] [address] 38969 PCP - General Internal Medicine 04/21/22 documented as of this encounter
--- OUTSIDE RECORDS SUMMARY | 2024-05-30 08:59 | XMS_ITS | Encounter Summary ---
Author Organization [facility] Address [address] [place] [address] Care Team Providers Care Pigment Making Supervisor Name Role Phone Robinson Howe MD Primary Care Provider + [phone] Jesus Monterroso MD Primary Care Provider Abram Flores MD Primary Care Provider Michael Hinojosa MD Primary Care Provider Driss nguyen [facility], Pcp Primary Care Provider Napoleon Mejia Primary Care Provider [phone] [facility], Pcp Primary Care Provider Maria T grace Encounter Details Date Type Department Care Team Description 07/12/2018 Orders Only Allergy [place] [address] [place] [address] Social History Tobacco Use Types [...] on filedocumented in this encounter Care Teams Pigment Making Supervisor Relationship Specialty Start Date End Date Robinson Howe MD [address] [place] [address] 42464 PCP - General Internal Medicine 11/03/14 04/13/20 Jesus Monterroso MD [address] [place] [address] 69527 PCP - General Internal Medicine 04/14/20 07/05/20 Abram Gardner MD [address] [place] [address] 07125 PCP - General Internal Medicine 07/06/20 12/24/20 Michael Gillette MD [address] [place] [address] 27719 PCP - General Internal Medicine 12/25/20 06/28/21 [facility], Pcp [address] [place], [place] [phone] PCP - General Internal Medicine 06/29/21 11/14/21 Napoleon Linda [address] [place] [address] 23903 PCP - General Internal Medicine 11/15/21 04/20/22 [facility], Pcp [address] [place] [address] 42412 PCP - General Internal Medicine 04/21/22 documented as of this encounter
--- OUTSIDE RECORDS SUMMARY | 2024-05-30 08:59 | XMS_ITS | Encounter Summary ---
Author Organization [facility] Address [address] [place] [address] Care Team Providers Care Rehabilitation Counselor Name Role Phone Robinson Howe MD Primary Care Provider + [phone] Jesus Monterroso MD Primary Care Provider Abram Flores MD Primary Care Provider Michael Hinojosa MD Primary Care Provider Driss nguyen [facility], Pcp Primary Care Provider Napoleon Mejia Primary Care Provider [phone] [facility], Pcp Primary Care Provider Maria T grace Encounter Details Date Type Department Care Team Description 08/07/2016 Release of Information Medical Records [address] [place] [address] 82351 Abstract, Provider Social History Tobacco Use Types [...] on filedocumented in this encounter Care Teams Rehabilitation Counselor Relationship Specialty Start Date End Date Robinson Howe MD [address] [place] [address] 01020 PCP - General Internal Medicine 11/03/14 04/13/20 Jesus Monterroso MD [address] [place] [address] 30922 PCP - General Internal Medicine 04/14/20 07/05/20 Abram Gardner MD [address] [place] [address] 94888 PCP - General Internal Medicine 07/06/20 12/24/20 Michael Gillette MD [address] [place] [address] 69658 PCP - General Internal Medicine 12/25/20 06/28/21 [facility], Pcp [address] [place], [place] [phone] PCP - General Internal Medicine 06/29/21 11/14/21 Napoleon Linda [address] [place] [address] 25412 PCP - General Internal Medicine 11/15/21 04/20/22 [facility], Pcp [address] [place] [address] 46297 PCP - General Internal Medicine 04/21/22 documented as of this encounter
--- OUTSIDE RECORDS SUMMARY | 2024-05-30 08:59 | XMS_ITS | Encounter Summary ---
Author Organization [facility] Address [address] [place] [address] Care Team Providers Care Cleaning Technician Name Role Phone Ruddy Cruz MD Primary Care Provider Unavail able Robinson Howe MD Primary Care Provider [phone] Jesus Monterroso MD Primary Care Provider Abram Flores MD Primary Care Provider Unavailab Michael Duvall MD Primary Care Provider Mariaelenavagabriel nguyen [facility], Pcp Primary Care Provider UnavailNapoleon White Primary Care Provider [phone] [facility], Pcp Primary Care Provider Unavailabl e Encounter Details Date Type Department Care Team Description 08/25/2014 Business Doc Medical Records [address] [place] [address] 06132 Abstract, Provider Social History Tobacco Use Types [...] on filedocumented in this encounter Care Teams Cleaning Technician Relationship Specialty Start Date End Date Ruddy Cruz MD PCP - General Internal Medicine 12/19/13 11/02/14 Robinson Howe MD [address] [place] [address] [phone] PCP - General Internal Medicine 11/03/14 04/13/20 Jesus Monterroso MD [address] [place] [address] PCP - General Internal Medicine 04/14/20 07/05/20 Abram Gardner MD [address] [place] [address] 98380 PCP - General Internal Medicine 07/06/20 12/24/20 Michael Gillette MD [address] [place] [address] PCP - General Internal Medicine 12/25/20 06/28/21 [facility], Pcp [address] [place] [address] PCP - General Internal Medicine 06/29/21 11/14/21 Napoleon Linda [address] [place], [place] [phone] PCP - General Internal Medicine 11/15/21 04/20/22 [facility], Pcp [address] [place] [address] PCP - General Internal Medicine 04/21/22 documented as of this encounter
--- OUTSIDE RECORDS SUMMARY | 2024-05-30 08:59 | XMS_ITS | Encounter Summary ---
Author Organization [facility] Address [address] [place] [address] Care Team Providers Care District Recruiter Name Role Phone Abram Gardner MD Primary Care Provider Unavailab Michael Duvall MD [facility] Primary Care Provider Napoleon Mejia Primary Care Provider [phone] [facility], Pcp Primary Care Provider Maria T grace Encounter Details Date Type Department Care Team Description 11/06/2020 Refill Adult [address] [address] Abram Gardner MD Social History Tobacco Use [...] on filedocumented in this encounter Care Teams District Recruiter Relationship Specialty Start Date End Date Abram Gardner MD PCP - General Internal Medicine 07/06/20 12/24/20 Michael Gillette MD PCP - General Internal Medicine 12/25/20 06/28/21 [facility], Pcp PCP - General Internal Medicine 06/29/21 11/14/21 Napoleon Linda [address] [place] [address] 75865 PCP - General Internal Medicine 11/15/21 04/20/22 [facility], Pcp PCP - General Internal Medicine 04/21/22 documented as of this encounter
--- OUTSIDE RECORDS SUMMARY | 2024-05-30 08:59 | XMS_ITS | Encounter Summary ---
Author Organization [facility] Address [address] [place] [address] Care Team Providers Care Soft Iron Inspector Name Role Phone Robinson Howe MD Primary Care Provider [phone] Jesus Monterroso MD Primary Care Provider Abram Flores MD Primary Care Provider Unavailab Michael Duvall MD Primary Care Provider Driss nguyen [facility], Pcp Primary Care Provider UnavailNapoleon White Primary Care Provider [phone] [facility], Pcp Primary Care Provider Unavailabl e Reason for Visit * Reason Comments E-prescribe Rx Request Encounter Details Date Type Department Care Team Description 01/05/2017 Refill Adult Medicine [address] [id number] Jerod Daniel PA-C [address] [place] [address] [phone] E-prescribe Rx Request Social History Tobacco Use [...] / Plan: [place] / Product Type: MEDICARE [id number] documented in this encounter Plan of Treatment Not on file documented as of this encounter Visit Diagnoses Not on filedocumented in this encounter Care Teams Soft Iron Inspector Relationship Specialty Start Date End Date Robinson Howe MD [address] [place] [address] PCP - General Internal Medicine 11/03/14 04/13/20 Jesus Monterroso MD [address] [place] [address] PCP - General Internal Medicine 04/14/20 07/05/20 Abram Gardner MD [address] [place] [address] PCP - General Internal Medicine 07/06/20 12/24/20 Michael Gillette MD [address] [place] [address] PCP - General Internal Medicine 12/25/20 06/28/21 Santa [place] [address] [place] [address] PCP - General Internal Medicine 06/29/21 11/14/21 Napoleon Linda [address] [place] [address] 01020 PCP - General Internal Medicine 11/15/21 04/20/22 [facility], [place] [address] [place] [address] 23043 PCP - General Internal Medicine 04/21/22 documented as of this encounter
--- OUTSIDE RECORDS SUMMARY | 2024-05-30 08:59 | XMS_ITS | Encounter Summary ---
Author Organization [facility] Address [address] [place] [address] Care Team Providers Care Boulevard Glassware Replacer Name Role Phone Robinson Howe MD Primary Care Provider [phone] Jesus Monterroso MD Primary Care Provider Abram Flores MD Primary Care Provider Michael Hinojosa MD Primary Care Provider Driss nguyen [facility], Pcp Primary Care Provider Napoleon Mejia Primary Care Provider [phone] [facility], Pcp Primary Care Provider Maria T grace Encounter Details Date Type Department Care Team Description 01/21/2015 Business Doc Medical Records [address] [place] [address] 17414 Abstract, Provider Social History Tobacco Use Types [...] on filedocumented in this encounter Care Teams Boulevard Glassware Replacer Relationship Specialty Start Date End Date Robinson Howe MD [address] [place] [address] 01020 PCP - General Internal Medicine 11/03/14 04/13/20 Jesus Monterroso MD [address] [place] [address] 73624 PCP - General Internal Medicine 04/14/20 07/05/20 Abram Gardner MD [address] [place] [address] 49611 PCP - General Internal Medicine 07/06/20 12/24/20 Michael Gillette MD [address] [place] [address] 48398 PCP - General Internal Medicine 12/25/20 06/28/21 [facility], Pcp [address] [place], [place] [phone] PCP - General Internal Medicine 06/29/21 11/14/21 Napoleon Linda [address] [place] [address] 43750 PCP - General Internal Medicine 11/15/21 04/20/22 [facility], Pcp [address] [place] [address] 57085 PCP - General Internal Medicine 04/21/22 documented as of this encounter
--- OUTSIDE RECORDS SUMMARY | 2024-05-30 08:59 | XMS_ITS | Encounter Summary ---
Author Organization [facility] Address [address] [place] [address] Care Team Providers Care Residential Collections Name Role Phone Robinson Howe MD Primary Care Provider + [phone] Jesus Monterroso MD Primary Care Provider Abram Flores MD Primary Care Provider Michael Hinojosa MD Primary Care Provider Driss nguyen [facility], Pcp Primary Care Provider Napoleon Mejia Primary Care Provider [phone] [facility], Pcp Primary Care Provider Maria T grace Encounter Details Date Type Department Care Team Description 05/05/2016 SCAN Medical Records [address] [place] [address] 42299 Abstract, Provider Social History Tobacco Use Types [...] filedocumented in this encounter Care Teams Residential Collections Relationship Specialty Start Date End Date Robinson Howe MD [address] [place] [address] 17492 PCP - General Internal Medicine 11/03/14 04/13/20 Jesus Monterroso MD [address] [place] [address] 93827 PCP - General Internal Medicine 04/14/20 07/05/20 Abram Gardner MD [address] [place] [address] 11834 PCP - General Internal Medicine 07/06/20 12/24/20 Michael Gillette MD [address] [place] [address] 81437 PCP - General Internal Medicine 12/25/20 06/28/21 [facility], Pcp [address] [place], [place] [phone] PCP - General Internal Medicine 06/29/21 11/14/21 Napoleon Linda [address] [place] [address] 50894 PCP - General Internal Medicine 11/15/21 04/20/22 [facility], Pcp [address] [place] [address] 69338 PCP - General Internal Medicine 04/21/22 documented as of this encounter
--- OUTSIDE RECORDS SUMMARY | 2024-05-30 08:59 | XMS_ITS | Clinical Summary ---
Author Organization [employer] Address [address] [place] [address] [address] [place] [address] Care Team Providers Care Vessel Captain Name Role Phone Unavailable Primary Care Provider [...] Description 03/15/2024 10:00 AM EST Office Visit [facility] [address] [place] [address] Madeline Baltazar Dental plaque (Primary Dx) from [...] Description 09/13/2024 3:00 PM EDT Office Visit [facility] [address] [place], [place] [phone] Delaney, Madeline [address] [place] [address] Health Maintenance Due Date Last Done Comments [...] Relevant to Health Maintenance Insurance D[facility]AL - [facility] Member Subscriber Plan / Payer (Ef fective 2017-Present) Name:Joanna Osman Relation to Subscriber:Self Name:Joanna Osman Payer ID:Not on file Group ID:[id number] Type:Not on file Address: [address] - [facility] - [facility]
--- OUTSIDE RECORDS SUMMARY | 2024-05-30 08:59 | XMS_ITS | Encounter Summary ---
Author Organization [facility] Address [address] [place] [address] Care Team Providers Care Hand Spring Repairer Name Role Phone Abram Gardner MD Primary Care Provider Michael Hinojosa MD Primary Care Provider Driss nguyen [facility], Pcp Primary Care Provider Napoleon Mejia Primary Care Provider [phone] [facility], Pcp Primary Care Provider Maria T grace Encounter Details Date Type Department Care Team Description 08/05/2020 Refill Hypertension - [place] [address] [place] [address] Louisa Hart, Pharm.D Social History Tobacco Use [...] on filedocumented in this encounter Care Teams Hand Spring Repairer Relationship Specialty Start Date End Date Abram Gardner MD PCP - General Internal Medicine 07/06/20 12/24/20 Michael Gillette MD PCP - General Internal Medicine 12/25/20 06/28/21 [facility], Pcp PCP - General Internal Medicine 06/29/21 11/14/21 Napoleon Linda [address] [place] [address]603 PCP - General Internal Medicine 11/15/21 04/20/22 [facility], Pcp PCP - General Internal Medicine 04/21/22 documented as of this encounter
--- OUTSIDE RECORDS SUMMARY | 2024-05-30 08:59 | XMS_ITS | Encounter Summary ---
Author Organization [facility] Address [address] [place] [address] Care Team Providers Care Avid Editor Name Role Phone Robinson Howe MD Primary Care Provider + [phone] Jesus Monterroso MD Primary Care Provider Abram Flores MD Primary Care Provider Unavailab Michael Duvall MD Primary Care Provider Driss nguyen [facility], Pcp Primary Care Provider Unavailabl Napoleon Ramirez Primary Care Provider [phone] [facility] Primary Care Provider Unavailabl e Reason for Visit * Reason Comments E-prescribe Rx Request Encounter Details Date Type Department Care Team Description 08/04/2017 Refill Adult Medicine [address] [id number] Robinson Howe MD [address] [place] [address] [phone] E-prescribe Rx Request Social History Tobacco Use [...] / Plan: [place] / Product Type: MEDICARE [id number] documented in this encounter Plan of Treatment [...] reflux documented in this encounter Care Teams Avid Editor Relationship Specialty Start Date End Date Robinson Howe MD [address] [place] [address] PCP - General Internal Medicine 11/03/14 04/13/20 Jesus Monterroso MD [address] [place], [place] [phone] PCP - General Internal Medicine 04/14/20 07/05/20 Abram Gardner MD [address] [place] [address] PCP - General Internal Medicine 07/06/20 12/24/20 Michael Gillette MD [address] [place] [address] PCP - General Internal Medicine 12/25/20 06/28/21 [facility] [address] [place] [address] PCP - General Internal Medicine 06/29/21 11/14/21 Napoleon Linda [address] [place] [address] PCP - General Internal Medicine 11/15/21 04/20/22 [facility]cp [address] [place] [address] 6[address]84 PCP - General Internal Medicine 04/21/22 documented as of this encounter
--- OUTSIDE RECORDS SUMMARY | 2024-05-30 08:59 | XMS_ITS | Encounter Summary ---
Author Organization [facility] Address [address] [place] [address] Care Team Providers Care Waterfront Director Name Role Phone Robinson Howe MD Primary Care Provider [phone] Jesus Monterroso MD Primary Care Provider Abram Flores MD Primary Care Provider Unavailab Michael Duvall MD Primary Care Provider Driss nguyen [facility], Pcp Primary Care Provider Unavailabl Napoleon Ramirez Primary Care Provider [phone] [facility], Pcp Primary Care Provider Unavailabl e Reason for Visit * Reason Comments E-prescribe Rx Request Encounter Details Date Type Department Care Team Description 03/15/2017 Refill Adult Medicine [address] [address] Jerod Daniel PA-C [address] [place] [address] [phone] E-prescribe Rx Request Social History Tobacco Use [...] / Plan: [place]ARE-[place] / Product Type: MEDICARE [id number] documented in this encounter Plan of Treatment [...] exacerbation documented in this encounter Care Teams Waterfront Director Relationship Specialty Start Date End Date Robinson Howe MD [address] [place] [address] 01020 PCP - General Internal Medicine 11/03/14 04/13/20 Jesus Monterroso MD [address] [place] [address] 49153 PCP - General Internal Medicine 04/14/20 07/05/20 Abram Gardner MD [address] [place] [address] 87537 PCP - General Internal Medicine 07/06/20 12/24/20 Michael Gillette MD [address] [place] [address] 38011 PCP - General Internal Medicine 12/25/20 06/28/21 [facility], Pcp [address] [place], [place] [phone] PCP - General Internal Medicine 06/29/21 11/14/21 Napoleon Linda [address] [place] [address] PCP - General Internal Medicine 11/15/21 04/20/22 [facility], Pcp [address] [place] [address] 64783 PCP - General Internal Medicine 04/21/22 documented as of this encounter
--- OUTSIDE RECORDS SUMMARY | 2024-05-30 08:59 | XMS_ITS | Encounter Summary ---
Author Organization [facility] Address [address] [place] [address] Care Team Providers Care Glazing Department Supervisor Name Role Phone Abram Gardner MD Primary Care Provider Michael Hinojosa MD Primary Care Provider Driss nguyen [facility], Pcp Primary Care Provider Napoleon Mejia Primary Care Provider [phone] [facility], Pcp Primary Care Provider Maria T grace Encounter Details Date Type Department Care Team Description 07/10/2020 Release of Information Medical Records [address] [place] [address] 21671 Abstract, Provider Social History Tobacco Use Types [...] on filedocumented in this encounter Care Teams Glazing Department Supervisor Relationship Specialty Start Date End Date Abram Gardner MD PCP - General Internal Medicine 07/06/20 12/24/20 Michael Gillette MD PCP - General Internal Medicine 12/25/20 06/28/21 [facility] Pcp PCP - General Internal Medicine 06/29/21 11/14/21 Napoleon Linda [address] [place] [address] 15246 PCP - General Internal Medicine 11/15/21 04/20/22 [facility], Pcp PCP - General Internal Medicine 04/21/22 documented as of this encounter
--- OUTSIDE RECORDS SUMMARY | 2024-05-30 08:59 | XMS_ITS | Encounter Summary ---
Author Organization [facility] Address [address] [place] [address] Care Team Providers Care Bolt Sawyer Name Role Phone Abram Gardner MD Primary Care Provider Michael Hinojosa MD Primary Care Provider Driss nguyen [facility], Pcp Primary Care Provider Napoleon Mejia Primary Care Provider [phone] [facility], Pcp Primary Care Provider Unavailabl e Reason for Visit * Reason Comments E-prescribe Rx Request Encounter Details Date Type Department Care Team Description 08/25/2020 Refill Allergy [place] [address] [place] [address] Cait Dumas MD E-prescribe Rx [...] on filedocumented in this encounter Care Teams Bolt Sawyer Relationship Specialty Start Date End Date Abram Gardner MD PCP - General Internal Medicine 07/06/20 12/24/20 Michael Gillette MD PCP - General Internal Medicine 12/25/20 06/28/21 [facility], Pcp PCP - General Internal Medicine 06/29/21 11/14/21 Napoleon Linda [address] [place] [address] 57781 PCP - General Internal Medicine 11/15/21 04/20/22 [facility], Pcp PCP - General Internal Medicine 04/21/22 documented as of this encounter
--- OUTSIDE RECORDS SUMMARY | 2024-05-30 08:59 | XMS_ITS | Encounter Summary ---
Author Organization [facility] Address [address] [place] [address] Care Team Providers Care Sales Representative Aircraft Name Role Phone Abram Gardner MD Primary Care Provider Unavailab Michael Duvall MD [facility] Primary Care Provider Napoleon Mejia Primary Care Provider [phone] [facility], Pcp Primary Care Provider Maria T grace Encounter Details Date Type Department Care Team Description 11/06/2020 Refill Adult [address] [address] Abram Gardner MD Social History Tobacco Use [...] filedocumented in this encounter Care Teams Sales Representative Aircraft Relationship Specialty Start Date End Date Abram Gardner MD PCP - General Internal Medicine 07/06/20 12/24/20 Michael Gillette MD PCP - General Internal Medicine 12/25/20 06/28/21 [facility], Pcp PCP - General Internal Medicine 06/29/21 11/14/21 Napoleon Linda [address] [place] [address] PCP - General Internal Medicine 11/15/21 04/20/22 [facility], Pcp PCP - General Internal Medicine 04/21/22 documented as of this encounter
--- OUTSIDE RECORDS SUMMARY | 2024-05-30 08:59 | XMS_ITS | Encounter Summary ---
Author Organization [facility] Address [address] [place] [address] Care Team Providers Care Television Agent Name Role Phone Abram Gardner MD Primary Care Provider Michael Hinojosa MD Primary Care Provider Driss nguyen [facility], Pcp Primary Care Provider Napoleon Mejia Primary Care Provider [phone] [facility] Pcp Primary Care Provider Unavailabl e Reason for Visit * Reason Comments E-prescribe Rx Request Encounter Details Date Type Department Care Team Description 09/27/2020 Refill Orthopedics-[address] [address] Francis Ndiaye PAYangC [address] [place] [address] [id number] E-prescribe Rx Request Social History Tobacco Use [...] on filedocumented in this encounter Care Teams Television Agent Relationship Specialty Start Date End Date Abram Gardner MD PCP - General Internal Medicine 07/06/20 12/24/20 Michael Gillette MD PCP - General Internal Medicine 12/25/20 06/28/21 [facility], Pcp PCP - General Internal Medicine 06/29/21 11/14/21 Napoleon Linda [address] [place] [address] PCP - General Internal Medicine 11/15/21 04/20/22 [facility], Pcp PCP - General Internal Medicine 04/21/22 documented as of this encounter
--- OUTSIDE RECORDS SUMMARY | 2024-05-30 08:59 | XMS_ITS | Encounter Summary ---
Author Organization [facility] Address [address] [place] [address] Care Team Providers Care Retirement Plan Specialist Name Role Phone Abram Gardner MD Primary Care Provider Michael Hinojosa MD Primary Care Provider Driss nguyen [facility], Pcp Primary Care Provider Napoleon Mejia Primary Care Provider [phone] [facility] Pcp Primary Care Provider Unavailabl e Reason for Visit * Reason Comments E-prescribe Rx Request Encounter Details Date Type Department Care Team Description 07/22/2020 Refill Adult Medicine [address] [address] Robinson Howe MD [address] [place] [address] E-prescribe Rx Request Social History Tobacco Use [...] N/A Patients current insurance carrier is: Payor: [facility] [employer] MCR / Plan: HMO $0 [facility] [id number] / Product Type: HMO [id number] documented in this encounter Plan of Treatment [...] exacerbation documented in this encounter Care Teams Retirement Plan Specialist Relationship Specialty Start Date End Date Abram Gardner MD PCP - General Internal Medicine 07/06/20 12/24/20 Michael Gillette MD PCP - General Internal Medicine 12/25/20 06/28/21 [facility], Pcp PCP - General Internal Medicine 06/29/21 11/14/21 Napoleon Linda [address] [place] [address] PCP - General Internal Medicine 11/15/21 04/20/22 [facility], Pcp PCP - General Internal Medicine 04/21/22 documented as of this encounter
--- OUTSIDE RECORDS SUMMARY | 2024-05-30 08:59 | XMS_ITS | Encounter Summary ---
Author Organization [facility] Address [address] [place] [address] Care Team Providers Care Tester/Lift Trucker Name Role Phone Robinson Howe MD Primary Care Provider [phone] Jesus Monterroso MD Primary Care Provider Abram Flores MD Primary Care Provider Unavailab Michael Duvall MD Primary Care Provider Driss nguyen [facility], Pcp Primary Care Provider Unavailabl e Napoleon Linda Primary Care Provider [phone] [facility], Pcp Primary Care Provider Unavailabl e Reason for Referral * Non JERED (Routine) - Authorized/Booked Specialty Diagnoses / Procedures Referred By Contac t Referred To Contact Pulmonology Diagnoses Mild intermittent asthma, unspecified whether complicated Procedures REFERRAL TO PULMONOLOGY Robinson Howe MD [address] [place] [address] Pulmo/[place] [address] [address] Referral ID Status Reason Start Date Expiration Date V isits Requested Visits Authorized [id number] Authorized/B ooked 01/01/2018 01/01/2019 1 1 Reason for Visit * Reason Onset Date Comments Corporate Controller Feedback 12/29/2017 pulmo Encounter Details Date Type Department Care Team Description 12/29/2017 Telephone Adult Medicine [facility] [address] [place] [address] Robinson Howe MD [address] [place] [address] Corporate Controller Feedback (pulmo) Social History Tobacco Use Types [...] needs to start: n/a Robinson Howe Payor: [facility]117go [facility] MCR / Plan: HMO $0 [place] [id number] / Product Type: HMO [id number] * Telephone Encounter - Darling Valerie - 12/29/2017 11:49 AM EST Please complete the proper smart text * Telephone Encounter - Sandi Zazueta - 12/29/2017 11:06 AM EST Patient would like a referral to pulmonary due to asthma, requesting to see providers at [address] [place] [address]. Please advise. documented in this encounter Plan of Treatment Not on file documented as of this encounter Visit Diagnoses Diagnosis Mild intermittent asthma, unspecified whether complicated- Primary documented in this encounter Care Teams Tester/Lift Trucker Relationship Specialty Start Date End Date Robinson Howe MD [address] [place] [address] PCP - General Internal Medicine 11/03/14 04/13/20 Jesus Monterroso MD [address] [place] [address] PCP - General Internal Medicine 04/14/20 07/05/20 Abram Gardner MD [address] [place] [address] PCP - General Internal Medicine 07/06/20 12/24/20 Michael Gillette MD [address] [place] [address] PCP - General Internal Medicine 12/25/20 06/28/21 [facility], Pcp [address] [place] [address] PCP - General Internal Medicine 06/29/21 11/14/21 Napoleon Linda [address] [place] [address] PCP - General Internal Medicine 11/15/21 04/20/22 [facility], Pcp [address] [place] [address] PCP - General Internal Medicine 04/21/22 documented as of this encounter
--- OUTSIDE RECORDS SUMMARY | 2024-05-30 08:59 | XMS_ITS | Encounter Summary ---
Author Organization [facility] Address [address] [place] [address] Care Team Providers Care Gate Watchman Name Role Phone Louisa Machuca MD Primary Care Provider Unavailable Ruddy Cruz MD Primary Care Provider Unavail able Robinson Howe MD Primary Care Provider [phone] Jesus Monterroso MD Primary Care Provider Abram Flores MD Primary Care Provider Unavailab Michael Duvall MD Primary Care Provider Driss nguyen [facility], Pcp Primary Care Provider UnavailNapoleon Wihte Primary Care Provider [phone] [facility], Pcp Primary Care Provider Maria T grace Encounter Details Date Type Department Care Team Description 11/20/2013 Business Doc Medical Records [address] [place] [address] Abstract, Provider Social History Tobacco Use Types [...] on filedocumented in this encounter Care Teams Gate Watchman Relationship Specialty Start Date End Date Louisa Machuca MD PCP - General Internal Medicine 07/17/13 Ruddy Cruz MD PCP - General Internal Medicine 12/19/13 11/02/14 Robinson Howe MD [address] [place] [address] PCP - General Internal Medicine 11/03/14 04/13/20 Jesus Monterroso MD [address] [place] [address] PCP - General Internal Medicine 04/14/20 07/05/20 Abram Gardner MD [address] [place] [address] PCP - General Internal Medicine 07/06/20 12/24/20 Michael Gillette MD [address] [place] [address] PCP - General Internal Medicine 12/25/20 06/28/21 [facility], Pcp [address] [place] [address] PCP - General Internal Medicine 06/29/21 11/14/21 Napoleon Linda [address] [place] [address] PCP - General Internal Medicine 11/15/21 04/20/22 [facility], Pcp [address] [place] [address] PCP - General Internal Medicine 04/21/22 documented as of this encounter
--- OUTSIDE RECORDS SUMMARY | 2024-05-30 08:59 | XMS_ITS | Encounter Summary ---
Author Organization [facility] Address [address] [place] [address] Care Team Providers Care Weatherization Operations Manager Name Role Phone Robinson Howe MD Primary Care Provider + [phone] Jesus Monterroso MD Primary Care Provider Abram Flores MD Primary Care Provider Michael Hinojosa MD Primary Care Provider Driss nguyen [facility], Pcp Primary Care Provider Napoleon eMjia Primary Care Provider [phone] [facility], Pcp Primary Care Provider Maria T grace Encounter Details Date Type Department Care Team Description 03/04/2019 Powerhouse Attendant Report Medical Records [address] [place] [address] Prudence Luna Social History Tobacco Use Types Packs/Day Years [...] on filedocumented in this encounter Care Teams Weatherization Operations Manager Relationship Specialty Start Date End Date Robinson Howe MD [address] [place] [address] [id number] PCP - General Internal Medicine 11/03/14 04/13/20 Jesus Monterroso MD [address] [place] [address] PCP - General Internal Medicine 04/14/20 07/05/20 Abram Gardner MD [address] [place] [address] PCP - General Internal Medicine 07/06/20 12/24/20 Michael Gillette MD [address] [place] [address] PCP - General Internal Medicine 12/25/20 06/28/21 [facility], Pcp [address] [place], [place] 5[address] PCP - General Internal Medicine 06/29/21 11/14/21 Napoleon Linda [address] [place] [address] PCP - General Internal Medicine 11/15/21 04/20/22 [facility], Pcp [address] [place] [address] PCP - General Internal Medicine 04/21/22 documented as of this encounter
--- OUTSIDE RECORDS SUMMARY | 2024-05-30 08:59 | XMS_ITS | Encounter Summary ---
Author Organization [facility] Address [address] [place] [address] Care Team Providers Care Undraped Artist Model Name Role Phone Robinson Howe MD Primary Care Provider [phone] Jesus Monterroso MD Primary Care Provider Abram Flores MD Primary Care Provider Unavailab Michael Duvall MD Primary Care Provider Driss nguyen [facility], Pcp Primary Care Provider UnavailNapoleon White Primary Care Provider [phone] [facility], Pcp Primary Care Provider Unavailabl e Reason for Visit * Reason Comments E-prescribe Rx Request Encounter Details Date Type Department Care Team Description 05/25/2019 Refill Adult Medicine [address] [address] Margarita Fox PA-C [address] [place] [address] E-prescribe Rx Request Social History Tobacco Use [...] N/A Patients current insurance carrier is: Payor: [facility] [employer] MCR / Plan: HMO $0 [facility] [id number] / Product Type: HMO [id number] documented in this encounter Plan of Treatment Not on file documented as of this encounter Visit Diagnoses Not on filedocumented in this encounter Care Teams Undraped Artist Model Relationship Specialty Start Date End Date Robinson Howe MD [address] [place] [address] PCP - General Internal Medicine 11/03/14 04/13/20 Jesus Monterroso MD [address] [place] [address] PCP - General Internal Medicine 04/14/20 07/05/20 Abram Gardner MD [address] [place], [place] [phone] PCP - General Internal Medicine 07/06/20 12/24/20 Michael Gillette MD [address] [place] [address] PCP - General Internal Medicine 12/25/20 06/28/21 [facility], Pcp [address] [place], [place] [phone] PCP - General Internal Medicine 06/29/21 11/14/21 Napoleon Linda [address] [place] [address] PCP - General Internal Medicine 11/15/21 04/20/22 [facility], Pcp [address] [place] [address] PCP - General Internal Medicine 04/21/22 documented as of this encounter
--- OUTSIDE RECORDS SUMMARY | 2024-05-30 08:59 | XMS_ITS | Encounter Summary ---
Author Organization [facility] Address [address] [place] [address] Care Team Providers Care Media Traffic Manager Name Role Phone Ruddy Cruz MD Primary Care Provider Unavail able Robinson Howe MD Primary Care Provider [phone] Jesus Monterroso MD Primary Care Provider Abram Flores MD Primary Care Provider Unavailab Michael Duvall MD Primary Care Provider Unavai patrick [facility], Pcp Primary Care Provider Unavailabl e Napoleon Linda Primary Care Provider [phone] [facility], [facility] Primary Care Provider Unavailabl e Reason for Visit * Reason Onset Date Comments Follow-up Appt Unavailable 07/29/2014 Encounter Details Date Type Department Care Team Description 07/29/2014 Telephone Adult [address] [id number] Ruddy Cruz MD Follow-up Appt Unavailable Social [...] on filedocumented in this encounter Care Teams Media Traffic Manager Relationship Specialty Start Date End Date Ruddy Cruz MD PCP - General Internal Medicine 12/19/13 11/02/14 Robinson Howe MD [address] [place], [place] [phone] PCP - General Internal Medicine 11/03/14 04/13/20 Jesus Monterroso MD [address] [place] [address] PCP - General Internal Medicine 04/14/20 07/05/20 Abram Gardner MD [address] [place] [address] PCP - General Internal Medicine 07/06/20 12/24/20 Michael Gillette MD [address] [place] [address] PCP - General Internal Medicine 12/25/20 06/28/21 [facility], Pcp [address] [place] [address] PCP - General Internal Medicine 06/29/21 11/14/21 Napoleon Linda [address] [place] [address] PCP - General Internal Medicine 11/15/21 04/20/22 [facility], Pcp [address] [place] [address] PCP - General Internal Medicine 04/21/22 documented as of this encounter
--- OUTSIDE RECORDS SUMMARY | 2024-05-30 09:00 | XMS_ITS | Encounter Summary ---
Author Organization [facility] Address [address] [place] [address] Care Team Providers Care Regulatory Submissions Specialist Name Role Phone Robinson Howe MD Primary Care Provider + [phone] Jesus Monterroso MD Primary Care Provider Abram Flores MD Primary Care Provider UnavailMichael Elmore MD Primary Care Provider Driss nguyen [facility], Pcp Primary Care Provider UnavailNapoleon White Primary Care Provider [phone] [facility], Pcp Primary Care Provider Maria T grace Encounter Details Date Type Department Care Team Description 03/11/2016 Orders Only Medical Records [address] [place] [address] Jerod Daniel PA-C [address] [place] [address] Social History Tobacco Use Types Packs/Day Years [...] on filedocumented in this encounter Care Teams Regulatory Submissions Specialist Relationship Specialty Start Date End Date Robinson Howe MD [address] [place] [address] PCP - General Internal Medicine 11/03/14 04/13/20 Jesus Monterroso MD [address] [place] [address] PCP - General Internal Medicine 04/14/20 07/05/20 Abram Gardner MD [address] [place] [address] PCP - General Internal Medicine 07/06/20 12/24/20 Michael Gillette MD [address] [place] [address] PCP - General Internal Medicine 12/25/20 06/28/21 [facility], Pcp [address] [place] [address] PCP - General Internal Medicine 06/29/21 11/14/21 Napoleon Linda [address] [place] [address] PCP - General Internal Medicine 11/15/21 04/20/22 [facility], Pcp [address] [place] [address] PCP - General Internal Medicine 04/21/22 documented as of this encounter
--- OUTSIDE RECORDS SUMMARY | 2024-05-30 09:00 | XMS_ITS | Encounter Summary ---
Author Organization [facility] Address [address] [place] [address] Care Team Providers Care Miner Name Role Phone Robinson Howe MD Primary Care Provider [phone] Jesus Monterroso MD Primary Care Provider Abram Flores MD Primary Care Provider Unavailab Michael Duvall MD Primary Care Provider Unavagabriel nguyen [facility], Pcp Primary Care Provider Unavailabl e Napoleon Linda Primary Care Provider [phone] [facility], Pcp Primary Care Provider Unavailabl e Reason for Referral * Non JERED (Routine) - Authorized/Booked Specialty Diagnoses / Procedures Referred By Contjericho t Referred To Contact Pulmonology Procedures REFERRAL TO PULMONOLOGY Terrence Corral MD [address] [facility] [address] [place] [address] Pulmo/Spfld 175 [address] [facility] [address] [place] [address] Referral ID Status Reason Start Date Expiration Date V isits Requested Visits Authorized [id number] Authorized/B ooked 02/09/2018 02/09/2019 1 1 Encounter Details Date Type Department Care Team Description 02/09/2018 Telephone Pulmonology [address] [place], [place] [phone] Terrence Corral MD [address] [facility] [address] [place] [address] Social History Tobacco Use Types Packs/Day [...] encounter Miscellaneous Notes * Telephone Encounter - Terrence Corral MD - 02/09/2018 1:07 PM EST Patient had a Polysomnography done recently which demonstrated sleep apnea, referral to sleep specialist have been requested. Letter with copy and information sent to the patient. * Telephone Encounter - Terrence Corral MD - 02/09/2018 1:06 PM EST ----- Message from EVE Newman sent at 02/08/2018 7:50 PM EST ----- Dr Hardin Mild sleep apnea. Please have foot cutter arrange ALISA appt with Mumtaz or me. documented in this encounter Plan of Treatment Not on file documented as of this encounter Visit Diagnoses Not on filedocumented in this encounter Care Teams Miner Relationship Specialty Start Date End Date Robinson Howe MD [address] [place] [address] PCP - General Internal Medicine 11/03/14 04/13/20 Jesus Monterroso MD [address] [place] [address] PCP - General Internal Medicine 04/14/20 07/05/20 Abram Gardner MD [address] [place] [address] PCP - General Internal Medicine 07/06/20 12/24/20 Michael Gillette MD [address] [place] [address] PCP - General Internal Medicine 12/25/20 06/28/21 [facility], Pcp [address] [place] [address] PCP - General Internal Medicine 06/29/21 11/14/21 Napoleon Linda [address] [place] [address] PCP - General Internal Medicine 11/15/21 04/20/22 [facility], Pcp [address] [place] [address] PCP - General Internal Medicine 04/21/22 documented as of this encounter
[2024-05-30] MEDS: Sodium Bicarbonate 8.4% 50 MEQ/50 ML VIAL SUBCUT (09:40)
[2024-05-30] MEDS: Lidocaine HCl 1 % 20 ML VIAL 9 ML SUBCUT (09:41)
== END 2024-05-30 08:41 | disposition home or self-care (01) ==
LOC: HO.MAMMO 08:40
PROVIDERS: PCP Internal Medicine; Visit Provider Internal Medicine
DX: N63.22 Unspecified lump in the left breast, upper inner quadrant (principal); R92.8 Other abnormal and inconclusive findings on diagnostic imaging of breast
CPT/HCPCS: 19083; 77061; 77065; 88305; A4648; A6260; J2003

== ENCOUNTER → 2024-05-30 09:00 | Outpatient (BNV) | payer OTHER, SELFPAY | PROVIDERS: PCP Internal Medicine; Visit Provider Internal Medicine | DX: N63.21 Unspecified lump in the left breast, upper outer quadrant (principal) | CPT/HCPCS: 19083; 77065 ==

== ENCOUNTER 2024-06-04 13:55 | Outpatient (AMB) | payer OTHER, SELFPAY ==
[2024-06-04 14:00] VITALS: BP 122/50; PULSE 69; O2SAT 96; BMI 28.5
--- NOTE | 2024-06-04 14:00 | MHC.OFFVIS ---
Vital Signs 06/04/24 14:00 Height 5 ft 3 in Weight 160 lb 14.999 oz BMI 28.5 BP 122/50 L Blood Pressure Location Lt brachial Position Sitting Pulse 69 Pulse Source Pulse Oximeter Pulse Oximetry (%) 96 Oxygen Delivery Method Room Air Intake Visit Reasons: Sleep apnea Allergies regadenoson [From Lexiscan] Adverse Reaction (Intermediate, Verified 06/04/24 14:03) Chest Pain HPI Comments Details: The patient is a 74-year-old woman with a known history of asthma in addition to obstructive sleep apnea. Apparently she was diagnosed with sleep apnea about a year ago. She has underlying cardiovascular risk factor with high blood pressure and diabetes. She did use the CPAP is very hard for her to get used to it. She would have episodes which she will wake up short of breath. Therefore after multiple times including decreasing the pressure is she return the CPAP. She continues to have daytime drowsiness and also has an elevated [place] score of 10/24. She also has a history of asthma. She had been on Advair before in this was switched over to Wixela and has not had any significant improvement in breathing. At this time will try to optimize respiratory therapy. Will likely made her respiratory status worse with such was diagnosed with COVID-19 infection and subsequently COVID-19 pneumonia about a month or 2 ago. She did require multiple courses of antibiotics initially prednisone. She still has shortness of breath with activity. Mild in severity. Also has a nonproductive cough that is improved. 03/07/2022 the patient is here for pulmonary follow-up visit. She is not recovering after having flu-like symptoms and worsening respiratory symptoms. He has been having increasing chest tightness and wheezing. Moderate severity. She was supposed to be on Trelegy but she has been getting the wrong inhaler to the pharmacy. A resend the prescription to the pharmacy. Will make sure that she is on the right medication. In the meantime I will request that she undergo a chest x-ray and also blood work to assess for any potential triggers that may be exacerbating her obstructive airway disease. Because of her breathing she had a hard time tolerating her CPAP. But now that she is feeling better her cough is a little better after having been sick see starting to go back to using it regularly. 06/13/2022 the patient is here for a pulmonary follow-up visit. The patient now is recovering after having COVID. Her major issue right now is her memory. She seems to not be able to remember things as well after COVID. She recently had an MRI and is currently being worked up for that. In the meantime she is still struggling with her CPAP. She does not use it regularly. I did download the data and she has used it only a few times. When she does use it however seems like the CPAP pressures are too low. She does want to go higher this times is is hard for her to tolerate however. Therefore she is going to continue with CPAP of 8 cm and will reassess her usage and also heart response to therapy. I did request she can bring it in to the next visit so we can also adjusted for her. In addition to this, the patient having some a per the sciatic chest discomfort. Primarily her side. Waxing waning. Pleuritic in nature. At this point she does not have it. I did recommend that if it happens again she can always come in for chest x-ray. She has also been noticing some wheezing. Although she has not been taking the Trelegy regularly. She needs to take a Trelegy regularly and also uses Singulair. Her wheezing may just be a transition into the spring. We can also consider on the chin on antihistamine therapy. However, like to try to avoid polypharmacy at this time. If the patient has worsening she is to call the office for further recommendations. 09/23/2022 patient is here for pulmonary follow-up visit. The patient has recovered well after having COVID. She is back to using her respiratory therapy as prescribed. The patient also has been using her CPAP. The CPAP therapy continues to be effective in beneficial. She does use it for more than 4 hours a night. Now however, now she is having some issues with back discomfort send reticular and neuropathic discomfort. This is affecting her sleep as it is hurting her she goes to bed. He is keeping her up and is affecting her sleep quality. We did talk about potentially treating her with gabapentin. The patient states that she had been on this before and she tolerated it well. Therefore will go ahead and start her on 300 mg at nighttime to help with her sleep and also with discomfort that is affecting her sleep. Hopefully with this she will continue using the CPAP more effectively. She continues use her respiratory medicines. She does not required her short-acting beta agonists at this time. 02/03/2023 the patient is here for a pulmonary follow-up visit. Since her last spoke the patient did have her nuclear Lexiscan. When she was getting the injection she did develop significant back pain and chest pain. It was moderate to severe. Her symptoms did subside. Likely just an adverse reaction to the medicine. Respiratory gonsalves she is doing well now. She she does continue with current therapy. The patient has been using her CPAP. The CPAP therapy continues to be affecting beneficial. If she did get a prescription for gabapentin but she stopped using it because it was causing her to have as significant appetite at nighttime and she does not want he gained any weight. Although now she is taking Zoloft and this seems to be helping her sleep as well. A she does complaint of a cough and also postnasal drip. Will go ahead and prescribe her Dymista with the hope of helping her with a upper respiratory complaints. His I also gave her prescription for Tessalon Perles that she can use as needed for her cough. Although it may not be covered. I did provide her with good Rx card that she can use at the local pharmacy. 03/31/2023 the patient is here for a pulmonary follow-up visit. The patient is complaining still of a cough. Still complains of nonproductive cough which is moderate severity. Does bother her. The patient has tried elwn-bxj-nxxssgm medications without any relief. We did try saline Dymista to the pharmacy but was not cover. She has currently not using any nasal sprays. In addition to that she has not using the CPAP regularly. Patient will monitor closely for any worsening daytime drowsiness. She will continue to try positional therapy. If she develops worsening daytime drowsiness or increased cardiovascular risk factors then repeating sleep study may be helpful. The Trelegy inhaler has been helping her asthma. She continued to use it daily. She has not required her rescue inhaler or nebulizer. Also to note, her last chest x-ray was back in December 2022 and was without any acute disease. 09/08/2023 the patient is here for a pulmonary follow-up visit. Still complaining of cough. Cough tends to be at times productive at times not productive. Moderate severity. Feels like it is gets worse when she is trying not to cough like at sikh. She does taking jxpr-lpj-rrqtwtv medication without any relief she has significant upper airway cough syndrome significant postnasal drip and rhinitis. She did try the nasal sprays but cause bleeding. Therefore she stopped them. The patient has been using the Trelegy inhaler and her respiratory symptoms have been better. Therefore, I believe her cough is mainly from a upper airway cough syndrome in addition to potentially reflux disease. She does have underlying reflux disease will go ahead and request a barium swallow this time. She is already on PPI. We did talk about the reflux diet and also sleeping elevated. In the meantime she does use a CPAP. The CPAP therapy has been affecting beneficial. She is using the P 10 nasal pillows. She does have a very dry mouth. I explained to her that she needs to use a chinstrap. She is going to start using 1. Hopeful that helps with the adverse effects. In addition to that she should provide nasal rinsing prior to the CPAP in order to minimize the postnasal drip in the irritation. 12/01/2023 the patient is here for a pulmonary follow-up visit. The patient has been using her CPAP. CPAP of 8 cm. Although her AHI has been elevated. I did download her machine and her average AHI is 24. Seems like she needs a higher pressure. We have been going up and down her pressures. Will go and switch over to an APAP 8-11. She is going to keep an eye on the AHI. Hopefully she will do better with the slightly higher pressure. Although arms suspect that she will need a little higher pressure. She continues on the respiratory inhalers with good response. She does complaint of dyspepsia. The patient did have a barium swallows pretty abnormal. She does have a GI evaluation soon. I do believe that based on the findings she needs an endoscopy. 06/04/2024 the patient is here for a pulmonary follow-up visit. She is here with similar complaints. Complains of cough productive in nature. Moderate severity. It bothers her. She has not been using the nasal sprays. Likely she does have an upper airway cough syndrome. Her lungs are pretty clear and she has been taking Trelegy with good effect. She also should be using her rescue inhaler if he develops any chest tightness throughout the day. I will make sure to provide her 1 for home. Also, we can send us some Thermedicalkashmir Cordova and also some Mucinex DM to see this will settle down the cough. She understands that some of these medications will be vtdi-imx-xmiqddr and will then will not be covered by insurance. As far as barium swallow which was abnormal she did follow-up with GI and she did undergo endoscopy. She did have evidence of a hiatal hernia esophagitis gastritis and duodenitis. The findings were minimal. She is currently being treated with a PPI with good effect. She also needs to monitor closely and maintain a reflux diet. [facility] Medical History (Updated 05/28/24 @ 13:54 by Darci Jimenez MD) Elevated cholesterol HTN (hypertension) Type 2 diabetes mellitus Cognitive dysfunction GERD (gastroesophageal reflux disease) Osteopenia Hypothyroid Chronic cough History of neuropathy Chronic ankle pain Non-rheumatic aortic stenosis Pleuritic chest pain Chronic allergic rhinitis Hypothyroidism Asthma-COPD overlap syndrome ALISA (obstructive sleep apnea) Asthma Surgical History (Updated 06/04/24 @ 10:09 by Katia Vides) History of esophagogastroduodenoscopy (EGD) History of colonoscopy with polypectomy (04/16/24) Hx of cystoscopy History of colonoscopy (~03/12/20) History of surgery on lower extremity History of back surgery History of thyroid surgery Family History Father Diabetes HTN (hypertension) Heart disease Mother Diabetes HTN (hypertension) Other Asthma Social History Household Members: None Housing: Apartment Alcohol intake: former Patient Tobacco Use Status: Former Tobacco user Tobacco use type: Cigarette Years Smoked: 10 years e-Cigarette/Vaping Use: Never Used Second Hand Smoke Exposure: Yes service: No Current occupational status: disabled Current occupational exposures/hazards: No Cognitive needs: Yes (cane) Hearing needs: No Vision needs: Yes Female Reproductive History Menstrual Age of Menarche: 12 Review of Systems Const Denies chills, Denies fatigue, Denies fever(s), Denies weight gain and Denies weight loss Eyes Denies change in vision ENT Denies dizziness Card Denies chest pain, Denies leg edema, Denies lightheadedness, Denies palpitations, Denies dyspnea on exertion, Denies orthopnea and Denies other Resp Denies cough and Denies dyspnea on exertion GI Denies hematochezia and Denies change in stool character Denies hematuria, Denies dysuria, Denies flank pain and Reports urinary incontinence Musc Denies abnormal gait, Denies muscle weakness, Denies numbness, Denies radiating pain into limb and Denies tingling Skin/Breast Reports as per HPI and Denies rash Neuro Denies abnormal gait, Denies dizziness, Reports memory loss, Denies numbness and Denies tingling Psych Reports memory loss Endo Denies fatigue and Denies palpitations Physical Exam Vital Signs: Last Vital Signs Pulse 69 06/04/24 14:00 BP 122/50 L 06/04/24 14:00 Pulse Ox 96 06/04/24 14:00 Oxygen Delivery Method Room Air 06/04/24 14:00 BMI result Body Mass Index 28.5 Const General: alert Orientation/consciousness: patient oriented x3 Neck Neck: Yes normal visual inspection, Yes full ROM and Yes no lymphadenopathy Chest Chest palpation & inspection: normal inspection of the chest Resp Effort & Inspection: normal respiratory effort Auscultation: no rales, no rhonchi, no wheezes and diminished lung sounds Cardio Jugular venous distension: no JVD Rate: regular rate Rhythm: regular rhythm and other (ectopy) Heart sounds: S1 normal heart sound present and S2 normal heart sound present Peripheral pulses: Peripheral pulses 2+ throughout GI Inspection: Yes normal to inspection Palpation (GI): Soft to palpation and nontender Auscultation: normal bowel sounds Skin General skin exam: rashes and/or lesions noted Neuro General: patient oriented x3 Extrem Other: Trace edema around right lateral malleolus General: Yes normal to inspection Psych Appearance: grossly normal Mental Status: mental status grossly normal Speech and movement: Normal speech and movement present Assessment & Plan Assessment & Plan (1) Asthma-COPD overlap syndrome: Code(s): J44.9 - Chronic obstructive pulmonary disease, unspecified Category: Medical (2) ALISA (obstructive sleep apnea): Code(s): G47.33 - Obstructive sleep apnea (adult) (pediatric) Category: Medical (3) Chronic allergic rhinitis: Code(s): J30.9 - Allergic rhinitis, unspecified Category: Medical (4) GERD (gastroesophageal reflux disease): Code(s): K21.9 - Gastro-esophageal reflux disease without esophagitis Category: Medical Qualifiers: Esophagitis presence: without esophagitis Qualified Code(s): K21.9 - Gastro-esophageal reflux disease without esophagitis (5) Chronic cough: Code(s): R05.3 - Chronic cough Category: Medical Plan Pt stopped using the APAP, will try positional therapy continue Trelegy cont singular JEANNINE as needed ipratropium nasal spray as needed reflux diet sleep with HOB elevated trial Mucinex DM Tessalon pearls as needed Follow-up in 6-8 months Medications: New benzonatate 200 mg PO BID PRN 30 caps 4RF cough 30 days dextromethorphan-guaifenesin 60-1,200 mg ER (Mucinex DM) 1 tab PO Q12H 14 tabs 0RF 28 days Coding Level of Care Code Est Pt Level 4 (26498) Complex EM visit Add On G2211 Diagnoses Asthma-COPD overlap syndrome J44.9 ALISA (obstructive sleep apnea) G47.33 Chronic allergic rhinitis J30.9 Gastroesophageal reflux disease without esophagitis K21.9 Esophagitis presence: without esophagitis Chronic cough R05.3 Time Spent (min) 18
--- OUTSIDE RECORDS SUMMARY | 2024-06-04 17:08 | XMS_ITS | Encounter Summary ---
Author Organization [facility] Address [address] [place] [address] Care Team Providers Care Motorized Squad Commanding Officer Name Role Phone Michael Gillette MD Primary Care Provider Driss nguyen [facility], Pcp Primary Care Provider Napoleon Mejia Primary Care Provider [phone] [facility], Pcp Primary Care Provider Maria T grace Encounter Details Date Type Department Care Team Description 01/26/2021 Fruit Checker Report Medical Records [address] [place] [address] Osmar Ayala MD Social History Tobacco Use [...] on filedocumented in this encounter Care Teams Motorized Squad Commanding Officer Relationship Specialty Start Date End Date Michael Gillette MD PCP - General Internal Medicine 12/25/20 06/28/21 [facility], Pcp PCP - General Internal Medicine 06/29/21 11/14/21 Napoleon Linda [address] [place] [address] PCP - General Internal Medicine 11/15/21 04/20/22 [facility], Pcp PCP - General Internal Medicine 04/21/22 documented as of this encounter
--- OUTSIDE RECORDS SUMMARY | 2024-06-04 17:08 | XMS_ITS | Encounter Summary ---
Author Organization [facility] Address [address] [place] [address] Care Team Providers Care Director Digital Communications Name Role Phone Louisa Machuca MD Primary Care Provider Unavailable Ruddy Cruz MD Primary Care Provider Unavail able Robinson Howe MD Primary Care Provider [phone] Jesus Monterroso MD Primary Care Provider Abram Flores MD Primary Care Provider Unavailab Michael Duvall MD Primary Care Provider Driss nguyen [facility], Pcp Primary Care Provider UnavailNapoleon White Primary Care Provider [phone] [facility], Pcp Primary Care Provider Maria T grace Encounter Details Date Type Department Care Team Description 09/12/2013 Business Doc Medical Records [address] [place] [id number] Abstract, Provider Social History Tobacco Use Types [...] on filedocumented in this encounter Care Teams Director Digital Communications Relationship Specialty Start Date End Date Louisa Machuca MD PCP - General Internal Medicine 07/17/13 Ruddy Cruz MD PCP - General Internal Medicine 12/19/13 11/02/14 Robinson Howe MD [address] [place] [address] PCP - General Internal Medicine 11/03/14 04/13/20 Jesus Monterroso MD [address] [place] [address] PCP - General Internal Medicine 04/14/20 07/05/20 Abram Gardner MD [address] [place] [address] PCP - General Internal Medicine 07/06/20 12/24/20 Michael Gillette MD [address] [place] [address] PCP - General Internal Medicine 12/25/20 06/28/21 [facility], Pcp [address] [place] [address] PCP - General Internal Medicine 06/29/21 11/14/21 Napoleon Linda [address] [place] [address] PCP - General Internal Medicine 11/15/21 04/20/22 [facility], Pcp [address] [place] [address] PCP - General Internal Medicine 04/21/22 documented as of this encounter
--- OUTSIDE RECORDS SUMMARY | 2024-06-04 17:08 | XMS_ITS | Encounter Summary ---
Author Organization [facility] Address [address] [place] [address] Care Team Providers Care Yarn Skeins Examiner Name Role Phone Robinson Howe MD Primary Care Provider [phone] Jesus Monterroso MD Primary Care Provider Abram Flores MD Primary Care Provider UnavailMichael Elmore MD Primary Care Provider Driss nguyen [facility], Pcp Primary Care Provider UnavailNapoleon White Primary Care Provider [facility], Pcp Primary Care Provider Unavailguido e Encounter Details Date Type Department Care Team Description 11/11/2019 Telephone Adult Medicine [address] [phone] Robinson Howe MD [address] [place] [address] [phone] Social History Tobacco Use Types Packs/Day Years [...] filedocumented in this encounter Care Teams Yarn Skeins Examiner Relationship Specialty Start Date End Date Robinson Howe MD [address] [place] [address] PCP - General Internal Medicine 11/03/14 04/13/20 Jesus Monterroso MD [address] [place] [address] PCP - General Internal Medicine 04/14/20 07/05/20 Abram Gardner MD [address] [place] [address] PCP - General Internal Medicine 07/06/20 12/24/20 Michael Gillette MD [address] [place] [address] PCP - General Internal Medicine 12/25/20 06/28/21 [facility], Pcp [address] [place] [address] PCP - General Internal Medicine 06/29/21 11/14/21 Napoleon Linda [address] [place] [address] PCP - General Internal Medicine 11/15/21 04/20/22 [facility], Pcp [address] [place], [place] [phone] PCP - General Internal Medicine 04/21/22 documented as of this encounter
--- OUTSIDE RECORDS SUMMARY | 2024-06-04 17:08 | XMS_ITS | Encounter Summary ---
Author Organization [facility] Address [address] [place] [address] Care Team Providers Care Garden Equipment Mechanic Name Role Phone Robinson Howe MD Primary Care Provider [phone] Jesus Monterroso MD Primary Care Provider Abram Flores MD Primary Care Provider Unavailab Michael Duvall MD Primary Care Provider Driss nguyen [facility], Pcp Primary Care Provider Unavailabl Napoleon Ramirez Primary Care Provider [facility], Pcp Primary Care Provider Unavailabl e Reason for Visit * Reason Comments E-prescribe Rx Request Encounter Details Date Type Department Care Team Description 03/15/2017 Refill Adult Medicine [address] [phone] Jerod Daniel PA-C [address] [place] [address] [phone] E-prescribe Rx Request Social History Tobacco Use [...] / Plan: [place] / Product Type: MEDICARE [id number] documented in this encounter Plan of Treatment [...] exacerbation documented in this encounter Care Teams Garden Equipment Mechanic Relationship Specialty Start Date End Date Robinson Howe MD [address] [place] [address] PCP - General Internal Medicine 11/03/14 04/13/20 Jesus Monterroso MD [address] [place] [address] PCP - General Internal Medicine 04/14/20 07/05/20 Abram Gardner MD [address] [place] [address] PCP - General Internal Medicine 07/06/20 12/24/20 Michael Gillette MD [address] [place] [address] PCP - General Internal Medicine 12/25/20 06/28/21 [facility], Pcp [address] [place], [place] [id number] PCP - General Internal Medicine 06/29/21 11/14/21 Napoleon Linda [address] [place] [address] PCP - General Internal Medicine 11/15/21 04/20/22 [facility], Pcp [address] [place] [address] PCP - General Internal Medicine 04/21/22 documented as of this encounter
--- OUTSIDE RECORDS SUMMARY | 2024-06-04 17:08 | XMS_ITS | Encounter Summary ---
Author Organization [facility] Address [address] [place] [address] Care Team Providers Care Graphics Production Specialist Name Role Phone Michael Gillette MD Primary Care Provider Driss nguyen [facility], Pcp Primary Care Provider Napoleon Mejia Primary Care Provider [phone] [facility], Pcp Primary Care Provider Unavailabl e Reason for Visit * Reason Comments E-prescribe Rx Request Encounter Details Date Type Department Care Team Description 03/28/2021 Refill Adult Medicine [address] [address] Jerod Daniel PA-C [address] [place] [address] [phone] E-prescribe Rx Request Social History Tobacco Use [...] on filedocumented in this encounter Care Teams Graphics Production Specialist Relationship Specialty Start Date End Date Michael Gillette MD PCP - General Internal Medicine 12/25/20 06/28/21 [facility]cp PCP - General Internal Medicine 06/29/21 11/14/21 [place] [address] PCP - General Internal Medicine 11/15/21 04/20/22 [facility] Pcp PCP - General Internal Medicine 04/21/22 documented as of this encounter
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
--- OUTSIDE RECORDS SUMMARY | 2024-06-04 17:08 | XMS_ITS | Encounter Summary ---
Author Organization [facility] Address [address] [place] [address] Care Team Providers Care Animal Husbandry Teacher Name Role Phone Robinson Howe MD Primary Care Provider [phone] Jseus Monterroso MD Primary Care Provider Abram Flores MD Primary Care Provider Unavailab Michael Duvall MD Primary Care Provider Driss nguyen [facility], Pcp Primary Care Provider Unavailabl e Napoleon Linda Primary Care Provider [phone] [facility], Pcp Primary Care Provider Unavailabl e Reason for Visit * Reason Onset Date Comments Faxed Refill 02/09/2020 Encounter Details Date Type Department Care Team Description 02/09/2020 Refill Adult Medicine [address] [phone] Robinson Howe MD [address] [place] [address] [phone] Faxed Refill Social History Tobacco Use Types [...] ?? Patients current insurance carrier is: Payor: [facility] MCR / Plan: HMO $0 [facility] [id number] / Product Type: HMO [id number] ?? documented in this encounter Plan of Treatment Not on file documented as of this encounter Visit Diagnoses Not on filedocumented in this encounter Care Teams Animal Husbandry Teacher Relationship Specialty Start Date End Date Robinson Howe MD [address] [place] [address] PCP - General Internal Medicine 11/03/14 04/13/20 Jesus Monterroso MD [address] [place] [address] PCP - General Internal Medicine 04/14/20 07/05/20 Abram Gardner MD [address] [place], [place] [phone] PCP - General Internal Medicine 07/06/20 12/24/20 Michael Gillette MD [address] [place], [place] [phone] PCP - General Internal Medicine 12/25/20 06/28/21 [facility], Pcp [address] [place] [address] PCP - General Internal Medicine 06/29/21 11/14/21 Napoleon Linda [address] [place], [place] [phone] PCP - General Internal Medicine 11/15/21 04/20/22 [facility], Pcp [address] [place], [place] [phone] PCP - General Internal Medicine 04/21/22 documented as of this encounter
--- OUTSIDE RECORDS SUMMARY | 2024-06-04 17:08 | XMS_ITS | Encounter Summary ---
Author Organization [facility] Address [address] [place] [address] Care Team Providers Care Painter Name Role Phone Robinson Howe MD Primary Care Provider [phone] Jesus Monterroso MD Primary Care Provider Abram Flores MD Primary Care Provider Unavailab Michael Duvall MD Primary Care Provider Driss nguyen [facility] [place], Pcp Primary Care Provider Unavailabl Napoleon Ramirez Primary Care Provider [phone] [facility] [place], Pcp Primary Care Provider Unavailabl e Reason for Visit * Reason Onset Date Comments Faxed Order 10/28/2017 [facility] Encounter Details Date Type Department Care Team Description 10/28/2017 Telephone Adult [address] [phone] Robinson Howe MD [address] [place] [address] [phone] [facility] Social History Tobacco Use Types [...] filedocumented in this encounter Care Teams Painter Relationship Specialty Start Date End Date Robinson Howe MD [address] [place] [address] PCP - General Internal Medicine 11/03/14 04/13/20 Jesus Monterroso MD [address] [place] [address] PCP - General Internal Medicine 04/14/20 07/05/20 Abram Gardner MD [address] [place] [address] PCP - General Internal Medicine 07/06/20 12/24/20 Michael Gillette MD [address] [place] [address] PCP - General Internal Medicine 12/25/20 06/28/21 [facility] [place], Pcp [address] [place], [place] [phone] PCP - General Internal Medicine 06/29/21 11/14/21 Napoleon Linda [address] [place], [place] [phone] PCP - General Internal Medicine 11/15/21 04/20/22 [facility] [place], Pcp [address] [place], [place] [phone] PCP - General Internal Medicine 04/21/22 documented as of this encounter
--- OUTSIDE RECORDS SUMMARY | 2024-06-04 17:08 | XMS_ITS | Encounter Summary ---
Author Organization [facility] Address [address] [place] [address] Care Team Providers Care Landing Support Specialist Name Role Phone Robinson Howe MD Primary Care Provider [phone] Jesus Monterroso MD Primary Care Provider Abram Flores MD Primary Care Provider Unavailab Michael Duvall MD Primary Care Provider Driss nguyen [facility], Pcp Primary Care Provider UnavailNapoleon White Primary Care Provider [phone] [facility], Pcp Primary Care Provider Unavailguido e Encounter Details Date Type Department Care Team Description 03/03/2020 Refill Gastroenterology - [place] [address] [facility] [address] [place] [id number] Tien Xiong MD [address] [facility] [address] [place] [address] Social History Tobacco Use Types Packs/Day Years [...] on filedocumented in this encounter Care Teams Landing Support Specialist Relationship Specialty Start Date End Date Robinson Howe MD [address] [place] [address] PCP - General Internal Medicine 11/03/14 04/13/20 Jesus Monterroso MD [address] [place] [address] PCP - General Internal Medicine 04/14/20 07/05/20 Abram Gardner MD [address] [place] [address] PCP - General Internal Medicine 07/06/20 12/24/20 Michael Gillette MD [address] [place] [address] PCP - General Internal Medicine 12/25/20 06/28/21 [facility], Pcp [address] [place] [address] PCP - General Internal Medicine 06/29/21 11/14/21 Napoleon Linda [address] [place] [address] PCP - General Internal Medicine 11/15/21 04/20/22 [facility], Pcp [address] [place] [address] PCP - General Internal Medicine 04/21/22 documented as of this encounter
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
--- OUTSIDE RECORDS SUMMARY | 2024-06-04 17:08 | XMS_ITS | Clinical Summary ---
Author Organization [facility] Address [address] [place] [address] Care Team Providers Care Wealth Management Manager Name Role Phone Community, Pcp Primary Care Provider Unavailabl e Allergies Active Allergy Reactions Severity Noted Date Comments Seasonal Allergies 04/24/2013 Medications Medication Sig Dispensed Refills Start Date End Date Status FREESTYLE LANCETS MiscIndications:Pre op cardiovascular exam,Essential hypertension Use once daily to test blood glucose 300 Each 1 8 Active Incontinence Supply Disposable (DISPOSABLE UNDERPADS 30 X36 ) MiscIndications:Uri nary incontinence, unspecified type,Diabetes mellitus due to underlying condition with diabetic neuropathy, without long-term current use of insulin (HCC) Use daily for Incontinence needs 60 Each 11 0 Active ketotifen 0.025 % ophthalmic solution Place 1 Drop into both eyes 2 times daily as needed (itch or tear). 1 Bottle 5 0 Active aspirin 81 MG tablet Take 1 Tab by mouth every evening. 90 Tab 1 0 Active albuterol (PROVENTIL) (2.5 MG/3ML) 0.083% nebulizer solution Take 1 Vial by nebulization every 4 hours as needed for Wheezing for up to 180 days. 50 Vial 1 0 Active ALBUTEROL SULFATE 108 (90 Base) MCG/ACT Aero Soln Inhale 2 Puffs into the lungs 4 times daily as needed for Cough or Wheezing for up to 180 days. 1 Inhaler 1 0 Active Diclofenac Sodium 1 % Gel Apply 2 g topically 4 times daily as needed for Other (pain). 100 g 2 1 Active sertraline (ZOLOFT) 100 MG tablet Take 100 mg by mouth daily. 0 Active Ascorbic Acid (Vitamin C) 250 MG Chew Tab Take by mouth. 0 Active Turmeric 500 MG Cap Take by mouth. 0 A ctive FIBER COMPLETE OR Take by mouth. 0 Act sailaja Lactobacillus (PROBIOTIC ACIDOPHILUS OR) Take by mouth. 0 Activ e Biotin 30463 MCG Tab Take by mouth. 0 Active Triamcinolone Acetonide 55 MCG/ACT Aerosol SPRAY 1 SPRAY INTO EACH NOSTRIL EVERY DAY 1 Bottle 0 1 Active Fluticasone-Umeclid in-Vilant 100-62.5-25 MCG/INH AEROSOL POWDER,BREATH ACTIVATED Inhale into the lungs daily. 0 Active ammonium lactate (AMLACTIN) 12 % cream Apply to dry skin on both feet once daily 385 g 11 1 Active Magnesium 500 MG TabIndications:Lumb ar radiculitis,Muscle cramp Take 1 tablet by mouth every evening for 360 days. 90 tablet 3 1 Active Coenzyme Q10 (EQL CoQ10) 400 MG CapIndications:Lumb ar radiculitis,Muscle cramp Take 1 capsule by mouth every evening for 360 days. 90 capsule 3 1 Active B Complex Vitamins (Vitamin B Complex) Tab Take 1 tablet by mouth daily for 360 days. 90 tablet 3 1 Active losartan (COZAAR) 50 MG tablet Take 1 tablet by mouth every evening. 90 tablet 1 1 Active ibuprofen (ADVIL,MOTRIN) 200 MG tablet Take 200 mg by mouth daily. Take 2 tablets daily prn 0 Active simvastatin (ZOCOR) 20 MG tablet Take 1 tablet by mouth at bedtime. 90 tablet 1 1 Active Glucose Blood (FREESTYLE LITE) Strip USE TO TEST DAILY 100 Strip 1 1 Active amlodipine (NORVASC) 5 MG tablet TAKE 1 TABLET BY MOUTH EVERY DAY IN THE EVENING 90 tablet 1 1 Active glimepiride (AMARYL) 1 MG tabletIndications:T ype 2 diabetes mellitus with diabetic neuropathy (HCC),Hyperlipidemi a,Essential hypertension,Other specified hypothyroidism,Keli roesophageal reflux disease without esophagitis,Right hip pain,Need for prophylactic vaccination and inoculation against influenza,Hypothyro idism due to acquired atrophy of thyroid,Screening for viral disease,Metatarsalg ia of both feet,Pain in both feet,Moderate persistent asthma with acute exacerbation TAKE 1 TABLET BY MOUTH EVERY DAY BEFORE BREAKFAST 90 tablet 1 2 Active carvedilol (COREG) 6.25 MG tabletIndications:T ype 2 diabetes mellitus with diabetic neuropathy, with long-term current use of insulin ([facility]),Essential hypertension,Other specified hypothyroidism,Keli roesophageal reflux disease without esophagitis,Need for prophylactic vaccination and inoculation against influenza Take 1 tablet by mouth 2 times daily (with meals). 180 tablet 1 2 Active metformin (GLUCOPHAGE-XR) 500 MG 24 hr tablet TAKE 1 TABLET BY MOUTH EVERY DAY WITH BREAKFAST 90 tablet 1 2 Active levothyroxine 125 MCG tablet TAKE 1 TABLET BY MOUTH EVERY DAY 90 Tablet 0 2 Active pantoprazole (PROTONIX) 20 MG tablet TAKE 1 TABLET BY MOUTH EVERY DAY IN THE EVENING 30 Tablet 0 2 Active Aspirin Low Dose 81 MG chewable tablet TAKE 1 TABLET BY MOUTH EVERY DAY 30 Tablet 0 3 Active glucose monitoring kit (FREESTYLE) monitoring kit Apply 1 Each topically daily. 1 Kit 0 5 12/03/19 21 Discontinued (Insurance coverage issue) Active Problems Patient Care Coordination No te Formatting of this note is d ifferent from the original. Checking Your Blood Sugars Please check your blood sugars every day. Please check your sugars at the following times of day: before breakfast Your Blood Sugar Goals Pre Meal: 90-130 2 hours after meals: 110-160 Bedtime: 110-150 Use the Results ?? Bring your glucometer to every appointment ?? Write your fingerstick blood sugars down on a log sheet or record book. Bring them to your appointment ?? Look for patterns in the numbers. The results help you and your provider make decisions about your diabetes treatment plan. Your Results and your Goals Your Result / Date of Completion Your Goal / How Often to Assess Component Value Date HGBA1C 6.4 11/19/2015 Less than 7% --- 2-4 times per year BP Readings from Last 1 Encounters: 02/04/16 140/70 Less than 140/90 --- once per year Component Value Date MALBCR 17.2 11/19/2015 Less than 30 --- once per year Component Value Date LDL 136 11/19/2015 Less than 100 --- once per year Wt Readings from Last 1 Encounters: 02/04/16 172 lb 1.6 oz (78.064 kg) Your goal weight by next visit: 170 --- reassess 2-4 times a year Health Maintenance Due Topic Date Due ? ? Adult Immunization: Zostavax For Patients Over 60 2008 ? ? Depression Screen 06/18/2015 ? ? Fall Risk Assessment 06/18/2015 ? ? Diabetes: Annual Eye Exam 12/10/2015 ? ? Diabetes: Annual Care Plan 01/20/2016 Your Action Plan Check blood glucose as directed and write down all results. Contact me if you experience any barriers to care such as inability to purchase your medication, difficulty getting to your appointments or difficulty understanding your care plan When to Call your Healthcare Provider If your blood sugar falls below 70 and you do not know why or you become unconscious If you are sick and unable to take liquids because or nausea or vomiting If you have a fever over 101 If your blood sugar is 300 or higher on greater than 3 separate occasions during the same week If you are just unsure what to do Educational Resources [place] [employer] (www.diabetes.org) Centers for Disease Control and Prevention (www.cdc.gov/diabetes) This care plan was created in collaboration with Joanna Osman on 02/04/2016 Problem Noted Date Osteoarthritis of glenohumeral joint, ri ght 11/12/2020 Primary osteoarthritis of both hands History of tibial fracture 11/12/2020 Type 2 diabetes mellitus without complic ations 07/06/2020 COVID-19 virus infection 12/02/2019 Perennial allergic conjunctivitis of bot h eyes 11/06/2019 Allergy to dogs 05/01/2019 Urinary incontinence 04/03/2019 Perennial allergic rhinitis 10/11/2018 Pruritus 10/11/2018 Moderate persistent asthma without compl ication 05/17/2018 Overlap syndrome 03/28/2018 Obstructive sleep apnea mild AHI 7 02/08 Overview: [facility] Home Polysomnogram: Date 02/05/2018; AHI 7, Unclassified apneas 3; Obstructive apneas 2; Central apneas 4; Mixed apneas 0; hypopneas 50; average oxygen saturation 93% (lowest 86% without saturations <88% for 5% or more of study) [facility] Polysomnogram treatment study. Date 10/24/2018. Wt 165#; BMI 29; SE 78 % SM 83 %; spent 9 % of the study in REM. On CPAP @ 6; RDI 3.2 (AHI 1.3), Central apneas 1; Obstructive apneas 0; Mixed apneas 0; hypopneas 3; RERAs 6; and, average oxygen saturation was 92%. For the entire study, PLMs ~12. - Obstructive Sleep Apnea - mild; mostly hypopneas; without sleep related hypoventilation by 2018 home polysomnogram. - 10/24/2018 Pre-study ESS 7. 2/4 RLS symptoms. Type II or unspecified type diabetes mellitus with neurological manifestations, not stated as uncontrolled(250.60) 08/11/2017 Primary insomnia 12/02/2016 Right leg pain 12/02/2016 Screening for depression 06/02/2016 At risk for falling 06/02/2016 QT prolongation 08/17/2015 Glaucoma 03/10/2014 Diabetes mellitus with neurological sarika festations 04/24/2013 Hypertension 04/24/2013 Overview: Stress test with MIBI done in [place], 11/08/12 shows no evidence of pharmacological induced ischemia. LVEF 66%. Maximum blood pressure response 183/91. Maximum heart rate 101. Hyperlipidemia - statin intolerance 06/2013 Hypothyroidism 04/24/2013 GERD (gastroesophageal reflux disease) 0 04/24/2013 Generalized anxiety disorder 04/24/2013 Resolved Problems Problem Noted Date Resolved Date Asthma with exacerbation 08/08/2014 019 Immunizations Name Administration Dates Next Due COVID-19 (Moderna) 02/24/2021,05/11/2020, 021 Influenza (> 6 Months) 01/19/2015,12/19/2013 Influenza Vaccine-quadrivale nt 4 Years Plus 12/01/2016 Influenza vaccine high dose age 65 and over 11/06/2020,02/25/2020,12/24/2018,11/28,11/19/2015 PPD-RBMG 04/24/2013 Pneumoccoccal(Adult) Polysac charide PPSV23 05/23/2013 Pneumococcal Conjugate PCV-13 01/19/2015 Family History Medical History Relation Name Comments Diabetes Brother 2 X4 Arthritis Brother 3 Arthritis Father Diabetes Father Stroke Mother DM CA Colon Mother's side cousin CA Breast Negative Hx CA Ovarian Negative Hx Relation Name Status Comments Brother 1 Alive X4 Brother 2 Brother 3 Daughter Alive Father Mother Mother's side Sister Alive dm htn Social History Tobacco Use Types Packs/Day Years Used Date Smoking Tobacco: Former Cigarettes 1 10 0 08/31/1963 - 04/24/1977 Smokeless Tobacco: Former Alcohol Use Standard Drinks/Week Comments No 0 (1 standard drink = 0.6 oz pur e alcohol) Sex Assigned at Date Recorded Not on file Job Start Date Occupation Industry Not on file Not on file Not on file Last Filed Vital Signs Vital Sign Reading Time Taken Comments Blood Pressure 138/68 01/05/2021 9:18 AM EST Pulse 64 01/05/2021 8:58 AM EST Temperature 36.6 ??C (97.8 ??F) 01/05/2021 8:58 AM ES T Respiratory Rate 12 01/05/2021 8:58 AM EST Oxygen Saturation 97% 01/05/2021 8:58 AM EST Inhaled Oxygen Concentration - - Weight 72.1 kg (159 lb) 01/05/2021 8:58 AM EST Height 160 cm (5' 3 ) 01/05/2021 8:58 AM EST Body Mass Index 28.17 01/05/2021 8:58 AM EST Plan of Treatment Health Maintenance Due Date Last Done Comments SHINGLES VACCINE (1 of 2) 1998 DEPRESSION SCREEN 08/30/2018 08/30/2017, , 06/17/2014, Additional history exists FALL RISK ASSESSMENT 08/30/2018 08/30/2017, 02/04/2016, 06/17/2014, Additional history exists DIABETES: ANNUAL FOOT EXAM 02/20/202002/19, 11/14/2018, 08/14/2018, Additional history exists DIABETES: ANNUAL EYE EXAM 07/30/20202019 (External Completion), 07/30/2019, 07/02/2018 (External Completion), Additional history exists DIABETES: BLOOD SUGAR CONTRO L TEST (HGBA1C) 02/03/2021 11/04/2020, 06/26/2020, 02/24/2020, Additional history exists MAMMOGRAM 02/25/2021 02/26/2020, 07/22, 08/04/2017, Additional history exists DIABETES: ANNUAL URINE PROTE IN TEST (MICROALBUMIN) 06/26/2021 06/26/2020, 02/24/2020, 10/02/2019, Additional history exists DIABETES/HEART DISEASE: RBEEKA AL CHOLESTEROL (LDL) 11/04/2021 11/04/2020, 06/26/2020, 02/24/2020, Additional history exists Covid-19 Vaccine (2022-03 4 season) 2023 02/24/2021, 05/11/2020, 04/13/2020 BMI CHECK/ADVISE 02/21/2024 01/05/2021, , 07/06/2020, Additional history exists INFLUENZA (Season Ended) 2024 021, 02/25/2020, 12/24/2018, Additional history exists DTAP/TDAP/TD (2 - Td or Tdap) 02/18/2025 02/18/2015 (Refused) COLON CANCER SCREENING 03/09/2025 , 09/09/2014 (Completed), 09/09/2014, Additional history exists BONE DENSITY SCREENING 07/29/2029 07/29/2014 PNEUMOCOCCAL VACCINE Completed 01/19/2015, 05/24/19 14 HEPATITIS C SCREENING Completed 06/04/2015 Care Teams Wealth Management Manager Relationship Specialty Start Date End Date [facility], Pcp PCP - General Internal Medicine 04/21/22
--- OUTSIDE RECORDS SUMMARY | 2024-06-04 17:08 | XMS_ITS | Encounter Summary ---
Author Organization [facility] Address [address] [place] [address] Care Team Providers Care Motor Vehicle Escort Driver Name Role Phone Robinson Howe MD Primary Care Provider + [phone] Jesus Monterroso MD Primary Care Provider Abram Flores MD Primary Care Provider Unavailab Michael Duvall MD Primary Care Provider Mariaelenavagabriel nguyen [facility], Pcp Primary Care Provider Unavailabl e Napoleon Linda Primary Care Provider [facility], Pcp Primary Care Provider Unavailabl e Reason for Visit * Reason Onset Date Comments refill request 06/10/2019 Encounter Details Date Type Department Care Team Description 06/10/2019 Refill Adult Medicine [address] [id number] Robinson Howe MD [address] [place] [address] [phone] refill request Social History Tobacco Use Types [...] - 06/10/2019 5:[address] Ayala ([facility]) prescribed the Advair. However it's possible the [...] Patients current insurance carrier is: Payor: [facility] [employer] MCR / Plan: HMO [facility]0 [facility] [id number] / Product Type: HMO [id number] documented in this encounter Plan of Treatment Not on file documented as of this encounter Visit Diagnoses Not on filedocumented in this encounter Care Teams Motor Vehicle Escort Driver Relationship Specialty Start Date End Date Robinson Howe MD [address] [place] [address] PCP - General Internal Medicine 11/03/14 04/13/20 Jesus Monterroso MD [address] [place] [address] PCP - General Internal Medicine 04/14/20 07/05/20 Abram Gardner MD [address] [place] [address] PCP - General Internal Medicine 07/06/20 12/24/20 Michael Gillette MD [address] [place] [address] PCP - General Internal Medicine 12/25/20 06/28/21 [facility], Pcp [address] [place] [address] PCP - General Internal Medicine 06/29/21 11/14/21 Napoleon Linda [address] [place] [address] PCP - General Internal Medicine 11/15/21 04/20/22 [facility], Pcp [address] [place], [place] [id number] PCP - General Internal Medicine 04/21/22 documented as of this encounter
--- OUTSIDE RECORDS SUMMARY | 2024-06-04 17:08 | XMS_ITS | Encounter Summary ---
Author Organization [facility] Address [address] [place] [address] Care Team Providers Care Marine Electrician Name Role Phone Robinson Howe MD Primary Care Provider + [phone] Jesus Monterroso MD Primary Care Provider Abram Flores MD Primary Care Provider Unavailab Michael Duvall MD Primary Care Provider Mariaelenavagabriel nguyen [facility], Pcp Primary Care Provider Unavailabl e Napoleon Linda Primary Care Provider [phone] [facility], Pcp Primary Care Provider Unavailabl e Reason for Referral * Non JERED (Routine) - Authorized/Booked Specialty Diagnoses / Procedures Referred By Contac t Referred To Contact Pulmonology Diagnoses Mild intermittent asthma, unspecified whether complicated Procedures REFERRAL TO PULMONOLOGY Robinson Howe MD [address] [place] [address] Pulmo/[place] [phone] [address] Referral ID Status Reason Start Date Expiration Date V isits Requested Visits Authorized [id number] Authorized/B ooked 01/01/2018 01/01/2019 1 1 Reason for Visit * Reason Onset Date Comments Product Safety Compliance Leader Feedback 12/29/2017 pulmo Encounter Details Date Type Department Care Team Description 12/29/2017 Telephone Adult Medicine [facility] [address] [place] [address] Robinson Howe MD [address] [place] [address] Product Safety Compliance Leader Feedback (pulmo) Social History Tobacco Use Types [...] needs to start: n/a Robinson Howe [facility] MCR / Plan: HMO $0 [place] [id number] / Product Type: HMO [id number] * Telephone Encounter - Darling Valerie - 12/29/2017 11:49 AM EST Please complete the proper smart text * Telephone Encounter - Sandi Zazueta - 12/29/2017 11:06 AM EST Patient would like a referral to pulmonary due to asthma, requesting to see providers at [address] [place] [address]. Please advise. documented in this encounter Plan of Treatment Not on file documented as of this encounter Visit Diagnoses Diagnosis Mild intermittent asthma, unspecified whether complicated- Primary documented in this encounter Care Teams Marine Electrician Relationship Specialty Start Date End Date Robinson Howe MD [address] [place] [address] PCP - General Internal Medicine 11/03/14 04/13/20 Jesus Monterroso MD [address] [place] [address] PCP - General Internal Medicine 04/14/20 07/05/20 Abram Gardner MD [address] [place] [address] PCP - General Internal Medicine 07/06/20 12/24/20 Michael Gillette MD [address] [place] [address] PCP - General Internal Medicine 12/25/20 06/28/21 [facility], Pcp [address] [place] [address] PCP - General Internal Medicine 06/29/21 11/14/21 Napoleon Linda [address] [place] [address] PCP - General Internal Medicine 11/15/21 04/20/22 [facility], Pcp [address] [place] [address] PCP - General Internal Medicine 04/21/22 documented as of this encounter
--- OUTSIDE RECORDS SUMMARY | 2024-06-04 17:08 | XMS_ITS | Encounter Summary ---
Author Organization [facility] Address [address] [place] [address] Care Team Providers Care Assembly Associate Name Role Phone Robinson Howe MD Primary Care Provider + [phone] Jesus Monterroso MD Primary Care Provider Abram Flores MD Primary Care Provider Michael Hinojosa MD Primary Care Provider Driss nguyen [facility], Pcp Primary Care Provider Napoleon Mejia Primary Care Provider [phone] [facility], Pcp Primary Care Provider Maria T grace Encounter Details Date Type Department Care Team Description 02/20/2020 [facility] Medical Records [address] [place] [id number] Abstract, Provider Social History Tobacco Use Types [...] on filedocumented in this encounter Care Teams Assembly Associate Relationship Specialty Start Date End Date Robinson Howe MD [address] [place] [address] PCP - General Internal Medicine 11/03/14 04/13/20 Jesus Monterroso MD [address] [place] [address] PCP - General Internal Medicine 04/14/20 07/05/20 Abram Gardner MD [address] [place] [address] PCP - General Internal Medicine 07/06/20 12/24/20 Michael Gillette MD [address] [place] [address] PCP - General Internal Medicine 12/25/20 06/28/21 [facility], Pcp [address] [place], [place] [phone] PCP - General Internal Medicine 06/29/21 11/14/21 Napoleon Linda [address] [place] [address] PCP - General Internal Medicine 11/15/21 04/20/22 [facility], Pcp [address] [place] [address] PCP - General Internal Medicine 04/21/22 documented as of this encounter
--- OUTSIDE RECORDS SUMMARY | 2024-06-04 17:08 | XMS_ITS | Encounter Summary ---
Author Organization [facility] Address [address] [place] [address] Care Team Providers Care Spine Nurse Name Role Phone Robinson Howe MD Primary Care Provider + [phone] Jesus Monterroso MD Primary Care Provider Abram Flores MD Primary Care Provider Unavailab Michael Duvall MD Primary Care Provider Driss nguyen [facility], Pcp Primary Care Provider UnavailNapoleon White Primary Care Provider [phone] [facility], Pcp Primary Care Provider Unavailabl e Reason for Visit * Reason Comments E-prescribe Rx Request Encounter Details Date Type Department Care Team Description 12/15/2019 Refill Adult Medicine [address] [id number] Robinson Howe MD [address] [place] [address] [phone] E-prescribe Rx Request Social History Tobacco Use [...] N/A Patients current insurance carrier is: Payor: [facility] [employer] MCR / Plan: O $0 [facility] [id number] / Product Type: HMO [id number] documented in this encounter Plan of Treatment [...] extremity documented in this encounter Care Teams Spine Nurse Relationship Specialty Start Date End Date Robinson Howe MD [address] [place] [address] PCP - General Internal Medicine 11/03/14 04/13/20 Jesus Monterroso MD [address] [place] [address] PCP - General Internal Medicine 04/14/20 07/05/20 Abram Gardner MD [address] [place] [address] PCP - General Internal Medicine 07/06/20 12/24/20 Michael Gillette MD [address] [place] [address] PCP - General Internal Medicine 12/25/20 06/28/21 [facility], Pcp [address] [place], [place] [phone] PCP - General Internal Medicine 06/29/21 11/14/21 Napoleon Linda [address] [place] [address] PCP - General Internal Medicine 11/15/21 04/20/22 [facility], Pcp [address] [place] [address] PCP - General Internal Medicine 04/21/22 documented as of this encounter
--- OUTSIDE RECORDS SUMMARY | 2024-06-04 17:08 | XMS_ITS | Encounter Summary ---
Author Organization [facility] Address [address] [place] [address] Care Team Providers Care Global Recruiter Name Role Phone Robinson Howe MD Primary Care Provider + [phone] Jesus Monterroso MD Primary Care Provider Abram Flores MD Primary Care Provider Unavailab Michael Duvall MD Primary Care Provider Driss nguyen [facility], Pcp Primary Care Provider Unavailabl e Napoleon Linda Primary Care Provider [phone] [facility], Pcp Primary Care Provider Unavailabl e Reason for Visit * Reason Onset Date Comments Faxed Order 06/10/2015 Encounter Details Date Type Department Care Team Description 06/10/2015 Telephone Adult [address] [phone] Robinson Howe MD [address] [place] [address] [phone] Faxed Order Social History Tobacco Use Types [...] on filedocumented in this encounter Care Teams Global Recruiter Relationship Specialty Start Date End Date Robinson Howe MD [address] [place] [address] PCP - General Internal Medicine 11/03/14 04/13/20 Jesus Monterroso MD [address] [place] [address] PCP - General Internal Medicine 04/14/20 07/05/20 Abram Gardner MD [address] [place] [address] PCP - General Internal Medicine 07/06/20 12/24/20 Michael Gillette MD [address] [place] [address] PCP - General Internal Medicine 12/25/20 06/28/21 [facility], Pcp [address] [place] [address] PCP - General Internal Medicine 06/29/21 11/14/21 Napoleon Linda [address] [place] [address] PCP - General Internal Medicine 11/15/21 04/20/22 [facility], Pcp [address] [place] [address] PCP - General Internal Medicine 04/21/22 documented as of this encounter
--- OUTSIDE RECORDS SUMMARY | 2024-06-04 17:09 | XMS_ITS | Encounter Summary ---
Author Organization [facility] Address [address] [place] [address] Care Team Providers Care Oil House Attendant Name Role Phone Jesus Monterroso MD Primary Care Provider Abram Flores MD Primary Care Provider Unavailab Michael Duvall MD Primary Care Provider Driss nguyen Formerly [facility], 1928–1983, Pcp Primary Care Provider Napoleon Mejia Primary Care Provider [phone] [facility] Primary Care Provider Unavailabl e Reason for Visit * Reason Comments E-prescribe Rx Request Encounter Details Date Type Department Care Team Description 06/29/2020 Refill Allergy [address] [phone] Cait Dumas MD E-prescribe Rx Request Social [...] on filedocumented in this encounter Care Teams Oil House Attendant Relationship Specialty Start Date End Date Jesus Monterroso MD PCP - General Internal Medicine 04/14/20 07/05/20 Abram Gardner MD PCP - General Internal Medicine 07/06/20 12/24/20 Michael Gillette MD PCP - General Internal Medicine 12/25/20 06/28/21 [facility]ly [facility], 1928–1983, Pcp PCP - General Internal Medicine 06/29/21 11/14/21 Napoleon Linad [address] [place] [address] PCP - General Internal Medicine 11/15/21 04/20/22 [facility], Pcp PCP - General Internal Medicine 04/21/22 documented as of this encounter
--- OUTSIDE RECORDS SUMMARY | 2024-06-04 17:09 | XMS_ITS | Encounter Summary ---
Author Organization [facility] Address [address] [place] [address] Care Team Providers Care Water Systems Designer Name Role Phone Ruddy Cruz MD Primary Care Provider Unavail able Robinson Howe MD Primary Care Provider + [phone] Jesus Monterroso MD Primary Care Provider Abram Flores MD Primary Care Provider Unavailab Michael Duvall MD Primary Care Provider Unavai patrick [facility], Pcp Primary Care Provider Unavailabl e Napoleon Linda Primary Care Provider [phone] [facility], [facility] Primary Care Provider Unavailabl e Reason for Visit * Reason Onset Date Comments Follow-up Appt Unavailable 07/29/2014 Encounter Details Date Type Department Care Team Description 07/29/2014 Telephone Adult [address] [id number] Ruddy Cruz MD Follow-up Appt Unavailable Social [...] on filedocumented in this encounter Care Teams Water Systems Designer Relationship Specialty Start Date End Date Ruddy Cruz MD PCP - General Internal Medicine 12/19/13 11/02/14 Robinson Howe MD [address] [place], [place] [phone] PCP - General Internal Medicine 11/03/14 04/13/20 Jesus Monterroso MD [address] [place] [address] PCP - General Internal Medicine 04/14/20 07/05/20 Abram Gardner MD [address] [place] [address] PCP - General Internal Medicine 07/06/20 12/24/20 Michael Gillette MD [address] [place] [address] PCP - General Internal Medicine 12/25/20 06/28/21 [facility], Pcp [address] [place] [address] PCP - General Internal Medicine 06/29/21 11/14/21 Napoleon Linda [address] [place] [address] PCP - General Internal Medicine 11/15/21 04/20/22 [facility], Pcp [address] [place] [address] PCP - General Internal Medicine 04/21/22 documented as of this encounter
--- OUTSIDE RECORDS SUMMARY | 2024-06-04 17:09 | XMS_ITS | Encounter Summary ---
Author Organization [facility] Address [address] [place] [address] Care Team Providers Care Concrete Polisher Name Role Phone Abram Gardner MD Primary Care Provider Michael Hinojosa MD Primary Care Provider Driss nguyen [facility], Pcp Primary Care Provider Napoleon Mejia Primary Care Provider [phone] [facility], Pcp Primary Care Provider Maria T grace Encounter Details Date Type Department Care Team Description 08/05/2020 Refill Hypertension - [place] [address] [place] [address] Louisa Hart, Pharm.D Social History Tobacco Use [...] on filedocumented in this encounter Care Teams Concrete Polisher Relationship Specialty Start Date End Date Abram Gardner MD PCP - General Internal Medicine 07/06/20 12/24/20 Michael Gillette MD PCP - General Internal Medicine 12/25/20 06/28/21 [facility], Pcp PCP - General Internal Medicine 06/29/21 11/14/21 Napoleon Linda [address] [place] [address] PCP - General Internal Medicine 11/15/21 04/20/22 [facility], Pcp PCP - General Internal Medicine 04/21/22 documented as of this encounter
--- OUTSIDE RECORDS SUMMARY | 2024-06-04 17:09 | XMS_ITS | Encounter Summary ---
Author Organization [facility] Address [address] [place] [address] Care Team Providers Care Sandwich And Drink Cart Operator Name Role Phone Abram Gardner MD Primary Care Provider Michael Hinojosa MD Primary Care Provider Driss nguyen [facility], Pcp Primary Care Provider Napoleon Mejia Primary Care Provider [phone] Formerly [facility] Pcp Primary Care Provider Unavailabl e Reason for Visit * Reason Comments E-prescribe Rx Request Encounter Details Date Type Department Care Team Description 10/27/2020 Refill Adult Medicine [address] [address] Jerod Daniel PA-C [address] [place] [address] E-prescribe Rx Request Social History Tobacco Use [...] N/A Patients current insurance carrier is: Payor: [facility] MCR / Plan: O $0 [facility] [id number] / Product Type: HMO [id number] documented in this encounter Plan of Treatment [...] exacerbation documented in this encounter Care Teams Sandwich And Drink Cart Operator Relationship Specialty Start Date End Date Abram Gardner MD PCP - General Internal Medicine 07/06/20 12/24/20 Michael Gillette MD PCP - General Internal Medicine 12/25/20 06/28/21 [facility], Pcp PCP - General Internal Medicine 06/29/21 11/14/21 Napoleon Linda [address] [place] [address] PCP - General Internal Medicine 11/15/21 04/20/22 [facility], Pcp PCP - General Internal Medicine 04/21/22 documented as of this encounter
--- OUTSIDE RECORDS SUMMARY | 2024-06-04 17:09 | XMS_ITS | Encounter Summary ---
Author Organization [facility] Address [address] [place] [address] Care Team Providers Care Ecommerce Marketing Specialist Name Role Phone Robinson Howe MD Primary Care Provider + [phone] Jesus Monterroso MD Primary Care Provider Abram Flores MD Primary Care Provider Unavailab Michael Duvall MD Primary Care Provider Driss nguyen [facility], Pcp Primary Care Provider UnavailNapoleon [place] Primary Care Provider [phone] [facility], Pcp Primary Care Provider Unavailabl e Reason for Visit * Reason Comments E-prescribe Rx Request Encounter Details Date Type Department Care Team Description 05/25/2019 Refill Adult Medicine [address] [address] Margarita [place] PA-C [address] [place] [address] E-prescribe Rx Request Social History Tobacco Use [...] Patients current insurance carrier is: Payor: [facility] MCR / Plan: HMO $0 [facility] [id number] / Product Type: HMO [id number] documented in this encounter Plan of Treatment Not on file documented as of this encounter Visit Diagnoses Not on filedocumented in this encounter Care Teams Ecommerce Marketing Specialist Relationship Specialty Start Date End Date Robinson Howe MD [address] [place] [address] PCP - General Internal Medicine 11/03/14 04/13/20 Jesus Monterroso MD [address] [place] [address] PCP - General Internal Medicine 04/14/20 07/05/20 Abram Gardner MD [address] [place], [place] [phone] PCP - General Internal Medicine 07/06/20 12/24/20 Michael Gillette MD [address] [place] [address] PCP - General Internal Medicine 12/25/20 06/28/21 [facility] Pcp [address] [place], [place] [phone] PCP - General Internal Medicine 06/29/21 11/14/21 Napoleon Linda [address] [place] [address] PCP - General Internal Medicine 11/15/21 04/20/22 [facility], Pcp [address] [place] [address] PCP - General Internal Medicine 04/21/22 documented as of this encounter
--- OUTSIDE RECORDS SUMMARY | 2024-06-04 17:09 | XMS_ITS | Encounter Summary ---
Author Organization [facility] Address [address] [place] [address] Care Team Providers Care Telephone Solicitor Name Role Phone Robinson Howe MD Primary Care Provider + [phone] Jesus Monterroso MD Primary Care Provider Abram Flores MD Primary Care Provider Unavailab Michael Duvall MD Primary Care Provider Unavai patrick [facility], Pcp Primary Care Provider UnavailNapoleon [place] Primary Care Provider [phone] [facility], Pcp Primary Care Provider Unavailguido e Encounter Details Date Type Department Care Team Description 01/18/2018 Orders Only Medical Records [address] [place] [address] Terrence Corral MD [address] [place] [phone] Social History Tobacco Use Types Packs/Day [...] on filedocumented in this encounter Care Teams Telephone Solicitor Relationship Specialty Start Date End Date Robinson Howe MD [address] [place] [address] PCP - General Internal Medicine 11/03/14 04/13/20 Jesus Monterroso MD [address] [place] [address] PCP - General Internal Medicine 04/14/20 07/05/20 Abram Gardner MD [address] [place] [address] PCP - General Internal Medicine 07/06/20 12/24/20 Michael Gillette MD [address] [place] [address] PCP - General Internal Medicine 12/25/20 06/28/21 [facility], Pcp [address] [place] [address] PCP - General Internal Medicine 06/29/21 11/14/21 Napoleon Linda [address] [place] [address] PCP - General Internal Medicine 11/15/21 04/20/22 [facility], Pcp [address] [place], [place] [phone] PCP - General Internal Medicine 04/21/22 documented as of this encounter
--- OUTSIDE RECORDS SUMMARY | 2024-06-04 17:09 | XMS_ITS | Encounter Summary ---
Author Organization [facility] Address [address] [place] [address] Care Team Providers Care Web Support Engineer Name Role Phone Robinson Howe MD Primary Care Provider + [phone] Jesus Monterroso MD Primary Care Provider Abram Flores MD Primary Care Provider Unavailab Michael Duvall MD Primary Care Provider Driss nguyen [facility], Pcp Primary Care Provider UnavailNapoleon [place] Primary Care Provider [phone] [facility], Pcp Primary Care Provider Unavailabl e Reason for Visit * Reason Comments E-prescribe Rx Request Encounter Details Date Type Department Care Team Description 09/17/2016 Refill Adult Medicine [address] [phone] Jerod Daniel PA-C [address] [place] [address] [phone] E-prescribe Rx Request Social History Tobacco Use [...] / Plan[place] / Product Type: MEDICARE [id number] documented in this encounter Plan of Treatment [...] exacerbation documented in this encounter Care Teams Web Support Engineer Relationship Specialty Start Date End Date Robinson Howe MD [address] [place] [address] PCP - General Internal Medicine 11/03/14 04/13/20 Jesus Monterroso MD [address] [place] [address] PCP - General Internal Medicine 04/14/20 07/05/20 Abram Gradner MD [address] [place] [address] PCP - General Internal Medicine 07/06/20 12/24/20 Michael Gillette MD [address] [place] [address] PCP - General Internal Medicine 12/25/20 06/28/21 [facility], Pcp [address] [place], [place] [phone] PCP - General Internal Medicine 06/29/21 11/14/21 Napoleon Linda [address] [place] [address] PCP - General Internal Medicine 11/15/21 04/20/22 [facility], Pcp [address] [place] [address] PCP - General Internal Medicine 04/21/22 documented as of this encounter
--- OUTSIDE RECORDS SUMMARY | 2024-06-04 17:09 | XMS_ITS | Encounter Summary ---
Author Organization [facility] Address [address] [place] [address] Care Team Providers Care Velvet Steamer Name Role Phone Robinson Howe MD Primary Care Provider [phone] Jesus Monterroso MD Primary Care Provider Abram Flores MD Primary Care Provider Michael Hinojosa MD Primary Care Provider Driss nguyen [facility], Pcp Primary Care Provider Napoleon Mejia Primary Care Provider [phone] [facility], Pcp Primary Care Provider Maria T grace Encounter Details Date Type Department Care Team Description 03/04/2019 Lamp Shade Sewer Report Medical Records [address] [place] [address] Prudence Luna Social History Tobacco Use Types [...] on filedocumented in this encounter Care Teams Velvet Steamer Relationship Specialty Start Date End Date Robinson Howe MD [address] [place] [address] [phone] PCP - General Internal Medicine 11/03/14 04/13/20 Jesus Monterroso MD [address] [place] [address] PCP - General Internal Medicine 04/14/20 07/05/20 Abram Gardner MD [address] [place] [address] PCP - General Internal Medicine 07/06/20 12/24/20 Michael Gillette MD [address] [place] [address] PCP - General Internal Medicine 12/25/20 06/28/21 [facility], Pcp [address] [place], [place] [phone] PCP - General Internal Medicine 06/29/21 11/14/21 Napoleon Linda [address] [place] [address] PCP - General Internal Medicine 11/15/21 04/20/22 [facility], Pcp [address] [place] [address] PCP - General Internal Medicine 04/21/22 documented as of this encounter
--- OUTSIDE RECORDS SUMMARY | 2024-06-04 17:09 | XMS_ITS | Encounter Summary ---
Author Organization [facility] Address [address] [place] [address] Care Team Providers Care Equipment Operator Wage Hand Name Role Phone Robinson Howe MD Primary Care Provider + [phone] Jeuss Monterroso MD Primary Care Provider Abram Flores MD Primary Care Provider Michael Hinojosa MD Primary Care Provider Driss nguyen [facility], Pcp Primary Care Provider Napoleon Mejia Primary Care Provider [phone] [facility], Pcp Primary Care Provider Maria T grace Encounter Details Date Type Department Care Team Description 02/28/2018 Rental Sales Representative Report Medical Records [address] [place] [address] Abstract, Provider Social History Tobacco Use Types [...] on filedocumented in this encounter Care Teams Equipment Operator Wage Hand Relationship Specialty Start Date End Date Robinson Howe MD [address] [place] [address] PCP - General Internal Medicine 11/03/14 04/13/20 Jesus Monterroso MD [address] [place] [address] PCP - General Internal Medicine 04/14/20 07/05/20 Abram Gardner MD [address] [place], [place] [phone] PCP - General Internal Medicine 07/06/20 12/24/20 Michael Gillette MD [address] [place] [address] PCP - General Internal Medicine 12/25/20 06/28/21 [facility], Pcp [address] [place], [place] [phone] PCP - General Internal Medicine 06/29/21 11/14/21 Napoleon Linda [address] [place] [address] PCP - General Internal Medicine 11/15/21 04/20/22 [facility], Pcp [address] [place] [address] PCP - General Internal Medicine 04/21/22 documented as of this encounter
--- OUTSIDE RECORDS SUMMARY | 2024-06-04 17:09 | XMS_ITS | Encounter Summary ---
Author Organization [facility] Address [address] [place] [address] Care Team Providers Care Sales Professional Name Role Phone Robinson Howe MD Primary Care Provider + [phone] Jesus Monterroso MD Primary Care Provider Abram Flores MD Primary Care Provider Unavailab Michael Duvall MD Primary Care Provider Driss nguyen [facility], Pcp Primary Care Provider UnavailNapoleon [place] Primary Care Provider [phone] [facility], Pcp Primary Care Provider Unavailabl e Reason for Visit * Reason Comments E-prescribe Rx Request Encounter Details Date Type Department Care Team Description 01/05/2017 Refill Adult Medicine [address] [phone] Jerod Daniel PA-C [address] [place] [address] [phone] E-prescribe Rx Request Social History Tobacco Use [...] / Plan: [place] / Product Type: MEDICARE [id number] documented in this encounter Plan of Treatment Not on file documented as of this encounter Visit Diagnoses Not on filedocumented in this encounter Care Teams Sales Professional Relationship Specialty Start Date End Date Robinson Howe MD [address] [place] [address] PCP - General Internal Medicine 11/03/14 04/13/20 Jesus Monterroso MD [address] [place] [address] PCP - General Internal Medicine 04/14/20 07/05/20 Abram Gardner MD [address] [place] [address] PCP - General Internal Medicine 07/06/20 12/24/20 Michael Gillette MD [address] [place] [address] PCP - General Internal Medicine 12/25/20 06/28/21 [facility] [address] [place] [address] PCP - General Internal Medicine 06/29/21 11/14/21 Napoleon Linda [address] [place] [address] PCP - General Internal Medicine 11/15/21 04/20/22 [facility], [place] [address] [place] [address] PCP - General Internal Medicine 04/21/22 documented as of this encounter
--- OUTSIDE RECORDS SUMMARY | 2024-06-04 17:09 | XMS_ITS | Encounter Summary ---
Author Organization [facility] Address [address] [place] [address] Care Team Providers Care Rack Washer Name Role Phone Ruddy Cruz MD Primary Care Provider Unavail able Robinson Howe MD Primary Care Provider + [phone] Jesus Monterroso MD Primary Care Provider Abram Flores MD Primary Care Provider Unavailab Michael Duvall MD Primary Care Provider Mariaelenavagabriel nguyen [facility], Pcp Primary Care Provider UnavailNapoleon [place] Primary Care Provider [phone] [facility], Pcp Primary Care Provider Unavailabl e Encounter Details Date Type Department Care Team Description 07/31/2014 Business Doc Medical Records [address] [place] [address] Abstract, Provider Social History Tobacco Use Types [...] on filedocumented in this encounter Care Teams Rack Washer Relationship Specialty Start Date End Date Ruddy Cruz MD PCP - General Internal Medicine 12/19/13 11/02/14 Robinson Howe MD [address] [place] [address] [phone] PCP - General Internal Medicine 11/03/14 04/13/20 Jesus Monterroso MD [address] [place] [address] PCP - General Internal Medicine 04/14/20 07/05/20 Abram Gardner MD [address] [place] [address] PCP - General Internal Medicine 07/06/20 12/24/20 Michael Gillette MD [address] [place] [address] PCP - General Internal Medicine 12/25/20 06/28/21 [facility], Pcp [address] [place] [address] PCP - General Internal Medicine 06/29/21 11/14/21 Napoleon Linda [address] [place], [place] [phone] PCP - General Internal Medicine 11/15/21 04/20/22 [facility], Pcp [address] [place] [address] PCP - General Internal Medicine 04/21/22 documented as of this encounter
--- OUTSIDE RECORDS SUMMARY | 2024-06-04 17:09 | XMS_ITS | Encounter Summary ---
Author Organization [facility] Address [address] [place] [address] Care Team Providers Care Sap Security Consultant Name Role Phone Ruddy Cruz MD Primary Care Provider Unavail able Robinson Howe MD Primary Care Provider + [phone] Jesus Monterroso MD Primary Care Provider Abram Flores MD Primary Care Provider Unavailab Michael Duvall MD Primary Care Provider Mariaelenavagabriel nguyen [facility], Pcp Primary Care Provider UnavailNapoleon [place] Primary Care Provider [phone] [facility], Pcp Primary Care Provider Unavailabl e Encounter Details Date Type Department Care Team Description 09/11/2014 Business Doc Medical Records [address] [place] [address] Abstract, Provider Social History Tobacco Use Types [...] on filedocumented in this encounter Care Teams Sap Security Consultant Relationship Specialty Start Date End Date Ruddy Cruz MD PCP - General Internal Medicine 12/19/13 11/02/14 Robinson Howe MD [address] [place] [address] [phone] PCP - General Internal Medicine 11/03/14 04/13/20 Jesus Monterroso MD [address] [place] [address] PCP - General Internal Medicine 04/14/20 07/05/20 Abram Gardner MD [address] [place] [address] PCP - General Internal Medicine 07/06/20 12/24/20 Michael Gillette MD [address] [place] [address] PCP - General Internal Medicine 12/25/20 06/28/21 [facility], Pcp [address] [place] [address] PCP - General Internal Medicine 06/29/21 11/14/21 Napoleon Linda [address] [place], [place] [phone] PCP - General Internal Medicine 11/15/21 04/20/22 [facility], Pcp [address] [place] [address] PCP - General Internal Medicine 04/21/22 documented as of this encounter
--- OUTSIDE RECORDS SUMMARY | 2024-06-04 17:09 | XMS_ITS | Encounter Summary ---
Author Organization [facility] Address [address] [place] [address] Care Team Providers Care Fixed Wing Pilot Name Role Phone Robinson Howe MD Primary Care Provider + [phone] Jesus Monterroso MD Primary Care Provider Abram Flores MD Primary Care Provider UnavailMichael [place] MD Primary Care Provider Driss nguyen [facility], Pcp Primary Care Provider UnavailNapoleon [place] Primary Care Provider [phone] [facility], Pcp Primary Care Provider Unavailguido grace Encounter Details Date Type Department Care Team Description 03/11/2016 Orders Only Medical Records [address] [place] [address] Jerod Daniel PA-C [address] [place] [address] Social History Tobacco Use Types Packs/Day Years [...] on filedocumented in this encounter Care Teams Fixed Wing Pilot Relationship Specialty Start Date End Date Robinson Howe MD [address] [place] [address] PCP - General Internal Medicine 11/03/14 04/13/20 Jesus Monterroso MD [address] [place] [address] PCP - General Internal Medicine 04/14/20 07/05/20 Abram Gardner MD [address] [place] [address] PCP - General Internal Medicine 07/06/20 12/24/20 Michael Gillette MD [address] [place] [address] PCP - General Internal Medicine 12/25/20 06/28/21 [facility], Pcp [address] [place] [address] PCP - General Internal Medicine 06/29/21 11/14/21 Napoleon Linda [address] [place] [address] PCP - General Internal Medicine 11/15/21 04/20/22 [facility], Pcp [address] [place] [address] PCP - General Internal Medicine 04/21/22 documented as of this encounter
--- OUTSIDE RECORDS SUMMARY | 2024-06-04 17:09 | XMS_ITS | Encounter Summary ---
Author Organization [facility] Address [address] [place] [address] Care Team Providers Care Outpatient Physical Therapist Name Role Phone Robinson Howe MD Primary Care Provider + [phone] Jesus Monterroso MD Primary Care Provider Abram Flores MD Primary Care Provider Michael Hinojosa MD Primary Care Provider Driss nguyen [facility], Pcp Primary Care Provider Napoleon Mejia Primary Care Provider Counts Include [facility], Pcp Primary Care Provider Maria T grace Encounter Details Date Type Department Care Team Description 08/15/2018 Stamping Bench Die Maker Report Medical Records [address] [place] [id number] Becky Dolan MD Social History Tobacco Use [...] on filedocumented in this encounter Care Teams Outpatient Physical Therapist Relationship Specialty Start Date End Date Robinson Howe MD [address] [place] [address]20 PCP - General Internal Medicine 11/03/14 04/13/20 Jesus Monterroso MD [address] [place] [address] 81344 PCP - General Internal Medicine 04/14/20 07/05/20 Abram Gardner MD [address] [place] [address] 37540 PCP - General Internal Medicine 07/06/20 12/24/20 iMchael Gillette MD [address] [place] [address] 21588 PCP - General Internal Medicine 12/25/20 06/28/21 Counts [facility], Pcp [address] [place], [place] [phone] PCP - General Internal Medicine 06/29/21 11/14/21 Napoleon Linda [address] [place] [address] 17660 PCP - General Internal Medicine 11/15/21 04/20/22 Counts Include [facility], Pcp [address] [place] [address] 59634 PCP - General Internal Medicine 04/21/22 documented as of this encounter
--- OUTSIDE RECORDS SUMMARY | 2024-06-04 17:09 | XMS_ITS | Encounter Summary ---
Author Organization [facility] Address [address] [place] [address] Care Team Providers Care Bead Machine Operator Name Role Phone Robinson Howe MD Primary Care Provider + [phone] Jesus Monterroso MD Primary Care Provider Abram Flores MD Primary Care Provider Michael Hinojosa MD Primary Care Provider Driss nguyen [facility], Pcp Primary Care Provider Napoleon Mejia Primary Care Provider [phone] [facility], Pcp Primary Care Provider Maria T grace Encounter Details Date Type Department Care Team Description 01/21/2015 Business Doc Medical Records [address] [place] [address] 11978 Abstract, Provider Social History Tobacco Use Types [...] on filedocumented in this encounter Care Teams Bead Machine Operator Relationship Specialty Start Date End Date Robinson Howe MD [address] [place] [address]20 PCP - General Internal Medicine 11/03/14 04/13/20 Jesus Monterroso MD [address] [place] [address] 44460 PCP - General Internal Medicine 04/14/20 07/05/20 Abram Gardner MD [address] [place] [address] 30751 PCP - General Internal Medicine 07/06/20 12/24/20 Michael Gillette MD [address] [place] [address] 61558 PCP - General Internal Medicine 12/25/20 06/28/21 [facility], Pcp [address] [place], [place] [phone] PCP - General Internal Medicine 06/29/21 11/14/21 Napoleon Linda [address] [place] [address] PCP - General Internal Medicine 11/15/21 04/20/22 [facility], Pcp [address] [place] [address] 30557 PCP - General Internal Medicine 04/21/22 documented as of this encounter
--- OUTSIDE RECORDS SUMMARY | 2024-06-04 17:09 | XMS_ITS | Encounter Summary ---
Author Organization [facility] Address [address] [place] [address] Care Team Providers Care Career Services Director Name Role Phone Abram Gardner MD Primary Care Provider Michael Hinojosa MD Primary Care Provider Driss nguyen [facility], Pcp Primary Care Provider Napoleon Mejia Primary Care Provider [phone] [facility], Pcp Primary Care Provider Maria T grace Encounter Details Date Type Department Care Team Description 07/10/2020 Release of Information Medical Records [address] [place] [id number] Abstract, Provider Social History Tobacco Use Types [...] filedocumented in this encounter Care Teams Career Services Director Relationship Specialty Start Date End Date Abram Gardner MD PCP - General Internal Medicine 07/06/20 12/24/20 Michael Gillette MD PCP - General Internal Medicine 12/25/20 06/28/21 [facility], Pcp PCP - General Internal Medicine 06/29/21 11/14/21 Napoleon Linda [address] [place] [address] 477[address] PCP - General Internal Medicine 11/15/21 04/20/22 [facility], Pcp PCP - General Internal Medicine 04/21/22 documented as of this encounter
--- OUTSIDE RECORDS SUMMARY | 2024-06-04 17:09 | XMS_ITS | Encounter Summary ---
Author Organization [facility] Address [address] [place] [address] Care Team Providers Care Real Estate Branch Manager Name Role Phone Robinson Howe MD Primary Care Provider + [phone] Jesus Monterroso MD Primary Care Provider Abram Flores MD Primary Care Provider Michael Hinojosa MD Primary Care Provider Driss nguyen [facility], Pcp Primary Care Provider Napoleon Mejia Primary Care Provider [phone] [facility], Pcp Primary Care Provider Maria T grace Encounter Details Date Type Department Care Team Description 09/25/2018 Release of Information Medical Records [address] [place] [address] [id number] Abstract, Provider Social History Tobacco Use Types [...] on filedocumented in this encounter Care Teams Real Estate Branch Manager Relationship Specialty Start Date End Date Robinson Howe MD [address] [place] [address] 12533 PCP - General Internal Medicine 11/03/14 04/13/20 Jesus Monterroso MD [address] [place] [address] 46507 PCP - General Internal Medicine 04/14/20 07/05/20 Abram Gardner MD [address] [place] [address] 60706 PCP - General Internal Medicine 07/06/20 12/24/20 Micahel Gillette MD [address] [place] [address] 54270 PCP - General Internal Medicine 12/25/20 06/28/21 [facility], Pcp [address] [place], [place] [phone] PCP - General Internal Medicine 06/29/21 11/14/21 Napoleon Linda [address] [place] [address] 82532 PCP - General Internal Medicine 11/15/21 04/20/22 [facility], Pcp [address] [place] [address] 82500 PCP - General Internal Medicine 04/21/22 documented as of this encounter
--- OUTSIDE RECORDS SUMMARY | 2024-06-04 17:09 | XMS_ITS | Encounter Summary ---
Author Organization [facility] Address [address] [place] [address] Care Team Providers Care Non Destructive Testing Technician Name Role Phone Ruddy Cruz MD Primary Care Provider Unavail able Robinson Howe MD Primary Care Provider + [phone] Jesus Monterroso MD Primary Care Provider Abram Flores MD Primary Care Provider Unavailab Michael Duvall MD Primary Care Provider Mariaelenavagabriel nguyen [facility], Pcp Primary Care Provider UnavailNapoleon White Primary Care Provider [phone] [facility], Pcp Primary Care Provider Unavailabl e Encounter Details Date Type Department Care Team Description 07/24/2014 Business Doc Medical Records [address] [place] [address] 83559 Abstract, Provider Social History Tobacco Use Types [...] on filedocumented in this encounter Care Teams Non Destructive Testing Technician Relationship Specialty Start Date End Date Ruddy Cruz MD PCP - General Internal Medicine 12/19/13 11/02/14 Robinson Howe MD [address] [place] [address] [phone] PCP - General Internal Medicine 11/03/14 04/13/20 Jesus Monterroso MD [address] [place] [address] PCP - General Internal Medicine 04/14/20 07/05/20 Abram Gardner MD [address] [place] [address] 34892 PCP - General Internal Medicine 07/06/20 12/24/20 Michael Gillette MD [address] [place] [address] PCP - General Internal Medicine 12/25/20 06/28/21 [facility], Pcp [address] [place] [address] PCP - General Internal Medicine 06/29/21 11/14/21 Napoleon Linda [address] [place], [place] [phone] PCP - General Internal Medicine 11/15/21 04/20/22 [facility], Pcp [address] [place] [address] PCP - General Internal Medicine 04/21/22 documented as of this encounter
--- OUTSIDE RECORDS SUMMARY | 2024-06-04 17:09 | XMS_ITS | Encounter Summary ---
Author Organization [facility] Address [address] [place] [address] Care Team Providers Care Debt Collection Specialist Name Role Phone Ruddy Cruz MD Primary Care Provider Unavail able Robinson Howe MD Primary Care Provider + [phone] Jesus Monterroso MD Primary Care Provider Abram Flores MD Primary Care Provider Unavailab Michael Duvall MD Primary Care Provider Mariaelenavagabriel nguyen [facility], Pcp Primary Care Provider UnavailNapoleon White Primary Care Provider [phone] [facility], Pcp Primary Care Provider Unavailabl e Encounter Details Date Type Department Care Team Description 08/25/2014 Business Doc Medical Records [address] [place] [address] 67656 Abstract, Provider Social History Tobacco Use Types [...] on filedocumented in this encounter Care Teams Debt Collection Specialist Relationship Specialty Start Date End Date Ruddy Cruz MD PCP - General Internal Medicine 12/19/13 11/02/14 Robinson Howe MD [address] [place] [address] [phone] PCP - General Internal Medicine 11/03/14 04/13/20 Jesus Monterroso MD [address] [place] [address] PCP - General Internal Medicine 04/14/20 07/05/20 Abram Gardner MD [address] [place] [address] 89013 PCP - General Internal Medicine 07/06/20 12/24/20 Michael Gillette MD [address] [place] [address] PCP - General Internal Medicine 12/25/20 06/28/21 [facility], Pcp [address] [place] [address] PCP - General Internal Medicine 06/29/21 11/14/21 Napoleon Linda [address] [place], [place] [phone] PCP - General Internal Medicine 11/15/21 04/20/22 [facility], Pcp [address] [place] [address] PCP - General Internal Medicine 04/21/22 documented as of this encounter
--- OUTSIDE RECORDS SUMMARY | 2024-06-04 17:09 | XMS_ITS | Encounter Summary ---
Author Organization [facility] Address [address] [place] [address] Care Team Providers Care Teacher Dramatics Name Role Phone Abram Gardner MD Primary Care Provider Michael Hinojosa MD Primary Care Provider Driss nguyen [facility], Pcp Primary Care Provider Napoleon Mejia Primary Care Provider [phone] [facility], Pcp Primary Care Provider Unavailabl e Reason for Visit * Reason Comments E-prescribe Rx Request Encounter Details Date Type Department Care Team Description 08/25/2020 Refill Allergy [facility] [address] [place] [address] Cait Dumas MD E-prescribe Rx [...] on filedocumented in this encounter Care Teams Teacher Dramatics Relationship Specialty Start Date End Date Abram Gardner MD PCP - General Internal Medicine 07/06/20 12/24/20 Michael Gillette MD PCP - General Internal Medicine 12/25/20 06/28/21 [facility], Pcp PCP - General Internal Medicine 06/29/21 11/14/21 Napoleon Linda [address] [place] [address] 44636 PCP - General Internal Medicine 11/15/21 04/20/22 [facility], Pcp PCP - General Internal Medicine 04/21/22 documented as of this encounter
--- OUTSIDE RECORDS SUMMARY | 2024-06-04 17:09 | XMS_ITS | Encounter Summary ---
Author Organization [facility] Address [address] [place] [address] Care Team Providers Care Crematorium Operator Name Role Phone Ruddy Cruz MD Primary Care Provider Unavail able Robinson Howe MD Primary Care Provider + [phone] Jesus Monterroso MD Primary Care Provider Abram Flores MD Primary Care Provider Unavailab Michael Duvall MD Primary Care Provider Mariaelenavagabriel nguyen [facility], Pcp Primary Care Provider UnavailNapoleon White Primary Care Provider [phone] [facility], Pcp Primary Care Provider Unavailabl e Encounter Details Date Type Department Care Team Description 05/02/2014 Transfer Records Medical Records [address] [place] [id number] [place] [address] [phone] Social History Tobacco Use Types Packs/Day Years [...] on filedocumented in this encounter Care Teams Crematorium Operator Relationship Specialty Start Date End Date Ruddy Cruz MD PCP - General Internal Medicine 12/19/13 11/02/14 Robinson Howe MD [address] [place] [address] PCP - General Internal Medicine 11/03/14 04/13/20 Jesus Monterroso MD [address] [place] [address] PCP - General Internal Medicine 04/14/20 07/05/20 Abram Gardner MD [address] [place] [address] PCP - General Internal Medicine 07/06/20 12/24/20 Michael Gillette MD [address] [place] [address] PCP - General Internal Medicine 12/25/20 06/28/21 [facility], Pcp [address] [place] [address] PCP - General Internal Medicine 06/29/21 11/14/21 Napoleon Linda [address] [place] [address] PCP - General Internal Medicine 11/15/21 04/20/22 [facility], Pcp [address] [place] [address] PCP - General Internal Medicine 04/21/22 documented as of this encounter
--- OUTSIDE RECORDS SUMMARY | 2024-06-04 17:09 | XMS_ITS | Encounter Summary ---
Author Organization [facility] Address [address] [place] [address] Care Team Providers Care Property Assessment Monitor Name Role Phone Robinson Howe MD Primary Care Provider + [phone] Jesus Monterroso MD Primary Care Provider Abram Flores MD Primary Care Provider Unavailab Michael Duvall MD Primary Care Provider Unavagabriel nguyen [facility], Pcp Primary Care Provider UnavailNapoleon White Primary Care Provider [phone] [facility], Pcp Primary Care Provider Unavailguido e Encounter Details Date Type Department Care Team Description 02/08/2018 Orders Only Medical Records [address] [place] [address] Terrence Corral MD [address] [place] [phone] Social History Tobacco Use Types Packs/Day [...] on filedocumented in this encounter Care Teams Property Assessment Monitor Relationship Specialty Start Date End Date Robinson Howe MD [address] [place] [address] PCP - General Internal Medicine 11/03/14 04/13/20 Jesus Monterroso MD [address] [place] [address] PCP - General Internal Medicine 04/14/20 07/05/20 Abram Gardner MD [address] [place] [address] PCP - General Internal Medicine 07/06/20 12/24/20 Michael Gillette MD [address] [place] [address] PCP - General Internal Medicine 12/25/20 06/28/21 [facility], Pcp [address] [place] [address] PCP - General Internal Medicine 06/29/21 11/14/21 Napoleon Linda [address] [place] [address] PCP - General Internal Medicine 11/15/21 04/20/22 [facility], Pcp [address] [place] [address] PCP - General Internal Medicine 04/21/22 documented as of this encounter
--- OUTSIDE RECORDS SUMMARY | 2024-06-04 17:09 | XMS_ITS | Encounter Summary ---
Author Organization [facility] Address [address] [place] [address] Care Team Providers Care Director Of Acquisition Marketing Name Role Phone Robinson Howe MD Primary Care Provider + [phone] Jesus Monterroso MD Primary Care Provider Abram Flores MD Primary Care Provider Unavailab Michael Duvall MD Primary Care Provider Driss nguyen [facility], Pcp Primary Care Provider UnavailNapoleon White Primary Care Provider [phone] [facility], Pcp Primary Care Provider Unavailabl e Reason for Visit * Reason Comments E-prescribe Rx Request Encounter Details Date Type Department Care Team Description 06/22/2016 Refill Adult Medicine [address] [address] Jerod Daniel PA-C [address] [place] [address] [phone] E-prescribe Rx Request Social History Tobacco Use [...] / Plan: [place]ICARE-[place] / Product Type: MEDICARE [id number] documented in this encounter Plan of Treatment Not on file documented as of this encounter Visit Diagnoses Not on filedocumented in this encounter Care Teams Director Of Acquisition Marketing Relationship Specialty Start Date End Date Robinson Howe MD [address] [place] [address] PCP - General Internal Medicine 11/03/14 04/13/20 Jesus Monterroso MD [address] [place] [address] 44039 PCP - General Internal Medicine 04/14/20 07/05/20 Abram Gardner MD [address] [place] [address] 77744 PCP - General Internal Medicine 07/06/20 12/24/20 Michael Gillette MD [address] [place] [address] 37794 PCP - General Internal Medicine 12/25/20 06/28/21 [facility], Pcp [address] [place], [place] [phone] PCP - General Internal Medicine 06/29/21 11/14/21 Napoleon Linda [address] [place] [address] PCP - General Internal Medicine 11/15/21 04/20/22 [facility], Pcp [address] [place] [address] 77825 PCP - General Internal Medicine 04/21/22 documented as of this encounter
--- OUTSIDE RECORDS SUMMARY | 2024-06-04 17:09 | XMS_ITS | Encounter Summary ---
Author Organization [facility] Address [address] [place] [address] Care Team Providers Care Administrative Support Clerk Name Role Phone Robinson Howe MD Primary Care Provider + [phone] Jesus Monterroso MD Primary Care Provider Abram Flores MD Primary Care Provider Unavailab Michael Duvall MD Primary Care Provider Mariaelenavagabriel nguyen [facility], Pcp Primary Care Provider UnavailNapoleon White Primary Care Provider [phone] [facility], Pcp Primary Care Provider Unavailabl e Reason for Visit * Reason Comments E-prescribe Rx Request Encounter Details Date Type Department Care Team Description 07/20/2016 Refill Physiatry - [address] [address] Alexandria Todd MD [address] [place] [address] [place] [id number] E-prescribe Rx Request Social History Tobacco Use [...] on filedocumented in this encounter Care Teams Administrative Support Clerk Relationship Specialty Start Date End Date Robinson Howe MD [address] [place] [address] PCP - General Internal Medicine 11/03/14 04/13/20 Jesus Monterroso MD [address] [place] [address] PCP - General Internal Medicine 04/14/20 07/05/20 Abram Gardner MD [address] [place], [place] [phone] PCP - General Internal Medicine 07/06/20 12/24/20 Michael Gillette MD [address] [place] [address] PCP - General Internal Medicine 12/25/20 06/28/21 [facility]cp [address] [place] [address] PCP - General Internal Medicine 06/29/21 11/14/21 Napoleon Linda [address] [place], [place] [phone] PCP - General Internal Medicine 11/15/21 04/20/22 [facility], Pcp [address] [place], [place] [phone] PCP - General Internal Medicine 04/21/22 documented as of this encounter
--- OUTSIDE RECORDS SUMMARY | 2024-06-04 17:09 | XMS_ITS | Encounter Summary ---
Author Organization [facility] Address [address] [place] [address] Care Team Providers Care Diabetic Educator Name Role Phone Louisa Machuca MD Primary Care Provider Unavailable Ruddy Cruz MD Primary Care Provider Unavail able Robinson Howe MD Primary Care Provider + [phone] Jesus Monterroso MD Primary Care Provider Abram Flores MD Primary Care Provider Unavailab Michael Duvall MD Primary Care Provider Driss nguyen [facility], Pcp Primary Care Provider UnavailNapoleon White Primary Care Provider [phone] [facility], Pcp Primary Care Provider Maria T grace Encounter Details Date Type Department Care Team Description 11/20/2013 Business Doc Medical Records [address] [place] [address] Abstract, Provider Social History Tobacco Use Types [...] on filedocumented in this encounter Care Teams Diabetic Educator Relationship Specialty Start Date End Date Louisa Machuca MD PCP - General Internal Medicine 07/17/13 Ruddy Cruz MD PCP - General Internal Medicine 12/19/13 11/02/14 Robinson Howe MD [address] [place] [address] PCP - General Internal Medicine 11/03/14 04/13/20 Jesus Monterroso MD [address] [place] [address] PCP - General Internal Medicine 04/14/20 07/05/20 Abram Gardner MD [address] [place] [address] PCP - General Internal Medicine 07/06/20 12/24/20 Michael Gillette MD [address] [place] [address] PCP - General Internal Medicine 12/25/20 06/28/21 [facility], Pcp [address] [place] [address] PCP - General Internal Medicine 06/29/21 11/14/21 Napoleon Linda [address] [place] [address] PCP - General Internal Medicine 11/15/21 04/20/22 [facility], Pcp [address] [place] [address] PCP - General Internal Medicine 04/21/22 documented as of this encounter
--- OUTSIDE RECORDS SUMMARY | 2024-06-04 17:09 | XMS_ITS | Encounter Summary ---
Author Organization [facility] Address [address] [place] [address] Care Team Providers Care Bitumen Plant Operator Name Role Phone Louisa Machuca MD Primary Care Provider Unavailable Ruddy Cruz MD Primary Care Provider Unavail able Robinson Howe MD Primary Care Provider + [phone] Jesus Monterroso MD Primary Care Provider Abram Flores MD Primary Care Provider Unavailab Michael Duvall MD Primary Care Provider Mariaelenavagabriel nguyen [facility], Pcp Primary Care Provider UnavailNapoleon White Primary Care Provider [phone] [facility], Pcp Primary Care Provider Unavailguido grace Encounter Details Date Type Department Care Team Description 10/23/2013 Orders Only OBGYN - [address] [address] Kate Mai MD Social History Tobacco Use [...] on filedocumented in this encounter Care Teams Bitumen Plant Operator Relationship Specialty Start Date End Date Louisa Machuca MD PCP - General Internal Medicine 07/17/13 Ruddy Cruz MD PCP - General Internal Medicine 12/19/13 11/02/14 Robinson Howe MD [address] [place] [address] PCP - General Internal Medicine 11/03/14 04/13/20 Jesus Monterroso MD [address] [place] [address] PCP - General Internal Medicine 04/14/20 07/05/20 Abram Gardner MD [address] [place], [place] [phone] PCP - General Internal Medicine 07/06/20 12/24/20 Michael Gillette MD [address] [place] [address] PCP - General Internal Medicine 12/25/20 06/28/21 [facility], Pcp [address] [place] [address] PCP - General Internal Medicine 06/29/21 11/14/21 Napoleon Linda [address] [place] [address] PCP - General Internal Medicine 11/15/21 04/20/22 [facility], Pcp [address] [place] [address] PCP - General Internal Medicine 04/21/22 documented as of this encounter
== END 2024-06-04 14:29 | disposition home or self-care (01) ==
LOC: HO.HPS 13:55
PROVIDERS: PCP Internal Medicine; Visit Provider Hospitalist
DX: J44.9 Chronic obstructive pulmonary disease, unspecified (principal); G47.33 Obstructive sleep apnea (adult) (pediatric); J30.9 Allergic rhinitis, unspecified; K21.9 Gastro-esophageal reflux disease without esophagitis; R05.3 Chronic cough
CPT/HCPCS: 99214; G2211

== ENCOUNTER → 2024-06-04 13:55 | Outpatient (BNVA) | payer OTHER, SELFPAY | PROVIDERS: PCP Internal Medicine; Visit Provider Hospitalist | DX: J44.9 Chronic obstructive pulmonary disease, unspecified (principal); J30.9 Allergic rhinitis, unspecified; G47.33 Obstructive sleep apnea (adult) (pediatric); K21.9 Gastro-esophageal reflux disease without esophagitis; R05.3 Chronic cough; Z99.89 Dependence on other enabling machines and devices; Z87.891 Personal history of nicotine dependence | CPT/HCPCS: 99212 ==

== ENCOUNTER 2024-06-06 11:03 | Outpatient (AMB) | payer OTHER, SELFPAY ==
--- NOTE | 2024-06-06 11:09 | A.OFFVIS_ITS ---
Vital Signs 06/06/24 11:23 Height 5 ft 3 in Weight 159 lb BMI 28.2 BP 149/65 H Blood Pressure Location Lt brachial Position Sitting Pulse 62 Intake Visit Reasons: Results us bx lt breast 2cm nipple Intake Note: Pt is seen in office for ultrasound biopsy RESULTS left breast mass 2cm from nipple. Pt c/o: denies any concerns Accompanied by: Self / Same As Patient Allergies regadenoson [From Lexiscan] Adverse Reaction (Intermediate, Verified 06/06/24 11:24) Chest Pain HPI Comments Details: 74-year-old female patient presenting for evaluation of pain in the left breast at the upper inner quadrant. The pain has been present for approximately 3 months and seems to be associated with a palpable mass in this location. She subsequently underwent evaluation with mammogram and ultrasound on 05/20/2024. The mammogram revealed no suspicious findings at the site of the palpable abnormality. Ultrasound also was negative for any suspicious findings at the site of the upper inner quadrant pain. Incidentally noted was an oval mass at the 2 o'clock position approximately 2 cm from the nipple. This was felt to be a suspicious finding (BI-RADS 4) an ultrasound-guided core biopsy is recommended. She underwent ultrasound-guided core biopsy the [facility] on 05/30/2024. The lesion was noted to disappear upon passing the needle. Subsequent pathology revealed benign breast tissue without atypia or malignancy. A copy of the report was provided to the patient. The patient was reporting pain in the lower extremities right greater than left and was told that she has vascular issues. She previously underwent orthopedic surgery in the right knee and still has hardware in place. She has never undergone a vascular workup. [facility] Medical History Elevated cholesterol HTN (hypertension) Type 2 diabetes mellitus Cognitive dysfunction GERD (gastroesophageal reflux disease) Osteopenia Hypothyroid Chronic cough History of neuropathy Chronic ankle pain Non-rheumatic aortic stenosis Pleuritic chest pain Chronic allergic rhinitis Hypothyroidism Asthma-COPD overlap syndrome ALISA (obstructive sleep apnea) Asthma Surgical History History of esophagogastroduodenoscopy (EGD) History of colonoscopy with polypectomy (04/16/24) Hx of cystoscopy History of colonoscopy (~01/21/21) History of surgery on lower extremity History of back surgery History of thyroid surgery Family History Father Diabetes HTN (hypertension) Heart disease Mother Diabetes HTN (hypertension) Other Asthma Social History Household Members: None Housing: Apartment Alcohol intake: former Patient Tobacco Use Status: Former Tobacco user Tobacco use type: Cigarette Years Smoked: 10 years e-Cigarette/Vaping Use: Never Used Second Hand Smoke Exposure: Yes service: No Current occupational status: disabled Current occupational exposures/hazards: No Cognitive needs: Yes (cane) Hearing needs: No Vision needs: Yes Female Reproductive History Menstrual Age of Menarche: 12 Physical Exam Vital Signs: Last Vital Signs Pulse 62 06/06/24 11:23 BP 149/65 H 06/06/24 11:23 BMI result Body Mass Index 28.2 Const General: no acute distress Nutritional Appearance: well nourished Orientation/consciousness: patient oriented x3 Chest Other: Exam deferred Resp Effort & Inspection: normal respiratory effort Skin General skin exam: no rashes or lesions noted Neuro General: patient oriented x3 Extrem Other: Pigmented changes noted in bilateral lower extremities with some mildly dilated varicosities. No ulceration appreciated. Well-healed knee incision identified on the right side. No edema. Assessment & Plan Assessment & Plan (1) Venous stasis of both lower extremities: Code(s): I87.8 - Other specified disorders of veins Category: Medical (2) Abnormal ultrasound of breast: Code(s): R92.8 - Other abnormal and inconclusive findings on diagnostic imaging of breast Category: Medical Plan Patient returns following a recent ultrasound-guided core biopsy of the left breast. She tolerated the procedure well and returns for review of the pathology results. Pathology revealed benign breast tissue with no atypia or malignancy. No further workup is required in routine screening mammography recommended in 1 year. Patient also complains of pain in the lower extremities possibly due to venous insufficiency. I recommended further evaluation by vascu lar surgery. She should follow up as needed. Orders: Referrals Vascular Surgery Referral I87.8 - Other specified disorders of veins Coding Level of Care Code Est Pt Level 3 (24370) Diagnoses Venous stasis of both lower extremities I87.8 Abnormal ultrasound of breast R92.8
[2024-06-06 11:23] VITALS: BP 149/65; PULSE 62; BMI 28.2
--- OUTSIDE RECORDS SUMMARY | 2024-06-06 13:34 | XMS_ITS | Encounter Summary ---
Author Organization [facility] Address [address] [place] [address] Care Team Providers Care Closing Manager Name Role Phone Robinson Howe MD Primary Care Provider [phone] Jesus Monterroso MD Primary Care Provider Abram Folres MD Primary Care Provider UnavailMichael Elmore MD Primary Care Provider Driss nguyen [facility], Pcp Primary Care Provider UnavailNapoleon White Primary Care Provider [phone] [facility], Pcp Primary Care Provider Unavailguido e Encounter Details Date Type Department Care Team Description 11/11/2019 Telephone Adult Medicine [address] [phone] Robinson Howe MD [address] [place] [address] [phone] Social History Tobacco Use Types Packs/Day Years [...] on filedocumented in this encounter Care Teams Closing Manager Relationship Specialty Start Date End Date Robinson Howe MD [address] [place] [address] PCP - General Internal Medicine 11/03/14 04/13/20 Jesus Monterroso MD [address] [place] [address] PCP - General Internal Medicine 04/14/20 07/05/20 Abram Gardner MD [address] [place] [address] PCP - General Internal Medicine 07/06/20 12/24/20 Michael Gillette MD [address] [place] [address] PCP - General Internal Medicine 12/25/20 06/28/21 [facility], Pcp [address] [place] [address] PCP - General Internal Medicine 06/29/21 11/14/21 Napoleon Linda [address] [place] [address] PCP - General Internal Medicine 11/15/21 04/20/22 [facility], Pcp [address] [place], [place] [phone] PCP - General Internal Medicine 04/21/22 documented as of this encounter
--- OUTSIDE RECORDS SUMMARY | 2024-06-06 13:34 | XMS_ITS | Encounter Summary ---
Author Organization [facility] Address [address] [place] [address] Care Team Providers Care Public Improvement Inspector Name Role Phone Robinson Howe MD Primary Care Provider [phone] Jesus Monterroso MD Primary Care Provider Abram Flores MD Primary Care Provider Unavailab Michael Duvall MD Primary Care Provider Driss nguyen [facility], Pcp Primary Care Provider Unavailabl Napoleon Ramirez Primary Care Provider [phone] [facility], Pcp Primary Care Provider Unavailabl e Reason for Visit * Reason Onset Date Comments Faxed Refill 12/10/2019 Encounter Details Date Type Department Care Team Description 12/10/2019 Refill Adult Medicine [address] [phone] Robinson Howe MD [address] [place] [address] [phone] Faxed Refill Social History Tobacco Use Types [...] Patients current insurance carrier is: Payor: [facility] MCR / Plan: HMO $0 [facility] [id number] / Product Type: HMO [id number] documented in this encounter Plan of Treatment Not on file documented as of this encounter Visit Diagnoses Not on filedocumented in this encounter Care Teams Public Improvement Inspector Relationship Specialty Start Date End Date Robinson Howe MD [address] [place] [address] PCP - General Internal Medicine 11/03/14 04/13/20 Jesus Monterroso MD [address] [place] [address] PCP - General Internal Medicine 04/14/20 07/05/20 Abram Gardner MD [address] [place] [address] PCP - General Internal Medicine 07/06/20 12/24/20 Michael Gillette MD [address] [place], [place] [phone] PCP - General Internal Medicine 12/25/20 06/28/21 [facility], Pcp [address] [place] [address] PCP - General Internal Medicine 06/29/21 11/14/21 Napoleon Linda [address] [place] [address] PCP - General Internal Medicine 11/15/21 04/20/22 [facility], Pcp [address] [place] [address] PCP - General Internal Medicine 04/21/22 documented as of this encounter
--- OUTSIDE RECORDS SUMMARY | 2024-06-06 13:34 | XMS_ITS | Encounter Summary ---
Author Organization [facility] [facility] Address [address] [place] [address] 7t [place] [address] Care Team Providers Care Communications Professor Name Role Phone Unavailable Primary Care Provider Unavailabl e Reason for Visit * Reason Onset Date Comments Durable Medical Equipment 01/18/2023 Encounter Details Date Type Department Care Team ([facility] st Contact Info) Description 01/18/2023 Telephone [facility] MEDICINE [address] [place] [address] Jesus Wiseman MD [address] [place], [place] [phone] Durable Medical Equipment Social History Tobacco Use [...] PM EST Tc from Susana working with [facility] requesting the following. Pull ups size Medium 4 per day, Wipes 4 per month, Disposable bed pads 2 per day, and she [id number] refills for all the supply's. Any questions please contact Susana at [phone] ext [phone] FYI after further inspection this pt does not seem active. documented in this encounter Plan of Treatment Upcoming Encounters Date Type Department Care Team (Late st Contact Info) Description 09/13/2024 3:00 PM EDT Office Visit [facility] ADULT DENTAL [address] [place] [address] Madeline Baltazar [address] [place] [address] documented as of this encounter Visit Diagnoses Not on filedocumented in this encounter
--- OUTSIDE RECORDS SUMMARY | 2024-06-06 13:34 | XMS_ITS | Encounter Summary ---
Author Organization [facility] [facility] Address [address] [place] [address] 7t [place] [address] Care Team Providers Care Key Account Director Name Role Phone Unavailable Primary Care Provider Unavailabl e Encounter Details Date Type Department Care Team (Latest Contact Info) Description 04/05/2018 Abstract [facility] CONVERSIONS Dental, Provider, DDS Social History [...] Description 09/13/2024 3:00 PM EDT Office Visit [facility] ADULT DENTAL [address] [place] [address] Delaney, Madeline [address] [place] [address] documented as of this encounter Visit Diagnoses Not on filedocumented in this encounter
--- OUTSIDE RECORDS SUMMARY | 2024-06-06 13:34 | XMS_ITS | Clinical Summary ---
Author Organization [facility] Address [address] [place] [address] Care Team Providers Care Assistant Designer Name Role Phone [facility], Pcp Primary Care [...] Take by mouth. 0 Activ e Biotin 06074 MCG Tab Take by mouth. 0 Active [...] neuropathy, with long-term current use of insulin ([facility]),Essential hypertension,Other specified hypothyroidism,Keli roesophageal reflux disease without [...] just unsure what to do Educational Resources [place] [employer] (www.diabetes.org) Centers for Disease Control [...] sleep apnea mild AHI 7 02/08 Overview: [facility] Home Polysomnogram: Date 02/05/2018; AHI 7, Unclassified apneas 3; Obstructive apneas 2; Central apneas 4; Mixed apneas 0; hypopneas 50; average oxygen saturation 93% (lowest 86% without saturations <88% for 5% or more of study) [facility] Polysomnogram treatment study. Date 10/24/2018. [...] 02/24/2020, 10/02/2019, Additional history exists DIABETES/HEART DISEASE: REBEKA [place] CHOLESTEROL (LDL) 11/04/2021 11/04/2020, 06/26/2020, 02/24/2020, [...] HEPATITIS C SCREENING Completed 06/04/2015 Care Teams Assistant Designer Relationship Specialty Start Date End Date [facility], Pcp PCP - General Internal Medicine 04/21/22
--- OUTSIDE RECORDS SUMMARY | 2024-06-06 13:34 | XMS_ITS | Encounter Summary ---
Author Organization [facility] Address [address] [place] [address] Care Team Providers Care Vice President For Philanthropy Name Role Phone Robinson Howe MD Primary Care Provider [phone] Jesus Monterroso MD Primary Care Provider Abram Flores MD Primary Care Provider Unavailab Michael Duvall MD Primary Care Provider Driss nguyen [facility], Pcp Primary Care Provider UnavailNapoleon White Primary Care Provider [phone] [facility], Pcp Primary Care Provider Unavailguido e Encounter Details Date Type Department Care Team Description 03/03/2020 Refill Gastroenterology - [place] [address] [place] [id number] Tien Xiong MD [address] [place] [address] Social History Tobacco Use Types Packs/Day Years [...] on filedocumented in this encounter Care Teams Vice President For Philanthropy Relationship Specialty Start Date End Date Robinson Howe MD [address] [place] [address] PCP - General Internal Medicine 11/03/14 04/13/20 Jesus Monterroso MD [address] [place] [address] PCP - General Internal Medicine 04/14/20 07/05/20 Abram Gardner MD [address] [place] [address] PCP - General Internal Medicine 07/06/20 12/24/20 Michael Gillette MD [address] [place] [address] PCP - General Internal Medicine 12/25/20 06/28/21 [facility], Pcp [address] [place] [address] PCP - General Internal Medicine 06/29/21 11/14/21 Napoleon Linda [address] [place] [address] PCP - General Internal Medicine 11/15/21 04/20/22 [facility], Pcp [address] [place] [address] PCP - General Internal Medicine 04/21/22 documented as of this encounter
--- OUTSIDE RECORDS SUMMARY | 2024-06-06 13:34 | XMS_ITS | Encounter Summary ---
Author Organization [facility] [facility] Address [address] [place] [address] [address]t [place] [address] Care Team Providers Care Sample Display Preparer Name Role Phone Unavailable Primary Care Provider Unavailabl e Encounter Details Date Type Department Care Team (Latest Contact Info) Description 12/24/2021 Abstract [facility] CONVERSIONS Dental, Provider, DDS Social History [...] Description 09/13/2024 3:00 PM EDT Office Visit [facility] ADULT DENTAL [address] [place] [address] Delaney, Madeline [address] [place] [address] documented as of this encounter Visit Diagnoses Not on filedocumented in this encounter
--- OUTSIDE RECORDS SUMMARY | 2024-06-06 13:34 | XMS_ITS | Encounter Summary ---
Author Organization [facility] [facility] Address [address] [place] [address] 7[address] [place] [address] Care Team Providers Care Pipeman Name Role Phone Unavailable Primary Care Provider Unavailabl e Encounter Details Date Type Department Care Team (Latest Contact Info) Description 12/24/2021 Abstract [facility] CONVERSIONS Dental, Provider, DDS Social History [...] Description 09/13/2024 3:00 PM EDT Office Visit [facility] ADULT DENTAL [address] [place] [address] Delaney, Madeline [address] [place] [address] documented as of this encounter Visit Diagnoses Not on filedocumented in this encounter
--- OUTSIDE RECORDS SUMMARY | 2024-06-06 13:34 | XMS_ITS | Encounter Summary ---
Author Organization [facility] [facility] Address [address] [place] [address] 7[address] [place] [address] Care Team Providers Care Sql Dba Name Role Phone Unavailable Primary Care Provider Unavailabl e Encounter Details Date Type Department Care Team (Late st Contact Info) Description 01/26/2022 Abstract [facility] ADULT DENTAL [address] [place] [address] Dental, Provider, DDS Social History Tobacco Use [...] Description 09/13/2024 3:00 PM EDT Office Visit [facility] ADULT DENTAL [address] [place], [place] [phone] Douglas Baltazararis [address] [place], [place] [phone] documented as of this encounter Procedures Procedure [...]
--- OUTSIDE RECORDS SUMMARY | 2024-06-06 13:34 | XMS_ITS | Encounter Summary ---
Author Organization [employer] [facility] Address [address] [place] [address] 7[address] [place] [address] Care Team Providers Care Frozen Pie Maker Name Role Phone Unavailable Primary Care Provider Unavailabl e Encounter Details Date Type Department Care Team (Latest Contact Info) Description 10/03/2018 Abstract [facility] CONVERSIONS Dental, Provider, DDS Social History [...] Visit [facility] ADULT DENTAL [address] [place] [address] Delaney, Madeline [address] [place] [address] documented as of this encounter Visit Diagnoses Not on filedocumented in this encounter
--- OUTSIDE RECORDS SUMMARY | 2024-06-06 13:34 | XMS_ITS | Encounter Summary ---
Author Organization [facility] Address [address] [place] [address] Care Team Providers Care Voicer Name Role Phone Michael Gillette MD Primary Care Provider Driss nguyen [facility], Pcp Primary Care Provider Napoleon Mejia Primary Care Provider [facility], Pcp Primary Care Provider Maria T grace Encounter Details Date Type Department Care Team Description 01/13/2021 Orders Only Adult Medicine [address] [address] Michael Gillette MD Preoperative examination; Screening for deficiency anemia; senior care current use of anticoagulant therapy Social History [...] 01/13/2022 PROTHROMBIN TIME Lab Routine Preoperative examination intermodal customer service current use of anticoagulant therapy Expected: 01/13/2021 (Approximate), Expires: 01/13/2022 THROMBOPLASTIN TIME, PARTIAL Lab Routine Preoperative examination senior care current use of anticoagulant therapy Expected: 01/13/2021 (Approximate), Expires: 01/13/2022 URINALYSIS, ROUTINE Lab Routine Preoperative examination Expected: 01/13/2021 (Approximate), Expires: 01/13/2022 documented as of this encounter Visit Diagnoses Diagnosis Preoperative examination Preoperative examination, unspecified Screening for deficiency anemia Screening for other and unspecified deficiency anemia intermodal customer service current use of anticoagulant therapy documented in this encounter Care Teams Voicer Relationship Specialty Start Date End Date Michael Gillette MD PCP - General Internal Medicine 12/25/20 06/28/21 [facility], Pcp PCP - General Internal Medicine 06/29/21 11/14/21 Napoleon Linda [address] [place] [address] PCP - General Internal Medicine 11/15/21 04/20/22 [facility], Pcp PCP - General Internal Medicine 04/21/22 documented as of this encounter
--- OUTSIDE RECORDS SUMMARY | 2024-06-06 13:34 | XMS_ITS | Encounter Summary ---
Author Organization [facility] Address [address] [place] [address] Care Team Providers Care Water Service Dispatcher Name Role Phone Michael Gillette MD Primary Care Provider Driss nguyen [facility], Pcp Primary Care Provider Napoleon Mejia Primary Care Provider [phone] [facility], Pcp Primary Care Provider Unavailabl e Reason for Visit * Reason Comments E-prescribe Rx Request Encounter Details Date Type Department Care Team Description 01/11/2021 Refill Adult Medicine [address] [address] Abram Gardner MD E-prescribe Rx Request Social [...] [place] 9.2 11/04/2020 GFR > 60 11/04/2020 [place] 01/05/21 NOV 06/29/21 - NEW to PCP [...] N/A Patients current insurance carrier is: Payor: [facility] [employer] MCR / Plan: HMO $0 [facility] [id number] / Product Type: HMO [id number] documented in this encounter Plan of Treatment Not on file documented as of this encounter Visit Diagnoses Not on filedocumented in this encounter Care Teams Water Service Dispatcher Relationship Specialty Start Date End Date Michael Gillette MD PCP - General Internal Medicine 12/25/20 06/28/21 [facility], Pcp PCP - General Internal Medicine 06/29/21 11/14/21 Napoleon Linad [address] [place] [address] PCP - General Internal Medicine 11/15/21 04/20/22 [facility], Pcp PCP - General Internal Medicine 04/21/22 documented as of this encounter
--- OUTSIDE RECORDS SUMMARY | 2024-06-06 13:35 | XMS_ITS | Encounter Summary ---
Author Organization [facility] Address [address] [place] [address] Care Team Providers Care Calender Machine Operator Helper Name Role Phone Robinson Howe MD Primary Care Provider + [phone] Jesus Monterroso MD Primary Care Provider Abram Flores MD Primary Care Provider Unavailab Michael Duvall MD Primary Care Provider Driss nguyen [facility], Pcp Primary Care Provider Unavailabl Napoleon Ramirez Primary Care Provider [phone] [facility], Pcp Primary Care Provider Unavailabl e Reason for Visit * Reason Onset Date Comments fatigue/malaise 10/01/2019 Encounter Details Date Type Department Care Team Description 10/01/2019 Telephone Adult [address] [id number] Robinson Howe MD [address] [place] [address] [phone] fatigue/malaise Social History Tobacco Use Types Packs/Day [...] her thyroid is off Was seen in [facility] last week and tested negative Asking for [...] abroad? NO ??? Have you been to [place] or in contact with anyone who has recently been in [place]? NO If pain or injury related was it due to an accident at work or from a motor vehicle accident? NO If yes, gather 3rd alliance party insurance information Date of accident/Injury: How long has patient had these symptoms?: 3-4 DAYS PCP: Robinson Howe Payor: [facility] MCR / Plan: HMO $0 [facility] [id number] / Product Type: HMO [id number] documented in this encounter Plan of Treatment Not on file documented as of this encounter Results * 25 HYDROXY INCLUDES FRACTIONS IF PERFORMED (10/02/2019 1:46 PM EDT) VITAMIN D, 25-HYDROXY 43 30 - 80 ng/mL 10/02/2019 5:24 PM EDT [facility] 10/02/2019 1:46 PM EDT 10/02/2019 1:50 PM EDT Jerod Daniel PA-C LAB [facility] * (ABNORMAL) CBC (AUTO DIFF PLATELET) (10/02/2019 1:46 PM EDT) Pathologist [facility] [place] [facility] WHITE BLOOD COUNT 10.8 4.8 - 10.8 x10-3/uL 10/02/2019 5:35 PM EDT [facility] [facility] RED BLOOD COUNT 4.4 3.8 - 4.8 [...] 4.00 uIU/ml 10/02/2019 5:25 PM EDT [facility] 10/02/2019 1:46 PM EDT 10/02/2019 1:50 PM EDT Jerod Daniel PA-C LAB Performing Organization Address [facility]/State/ZIP Co de Phone Number [facility] [employer] * MICROALBUMIN/CREATININE, URINE (10/02/2019 1:46 PM EDT) CREATININE, RANDOM URINE 95 mg/dL 10/02/2019 5:33 PM EDT [facility] [facility] MICROALBUMIN, RANDOM 27.0 0.0 - 29.0 mg/L 10/02/2019 5:42 PM EDT [facility] [employer] MICROALB/CRE RATIO RANDOM 28.4 0.0 - 30.0 mg/G 10/02/2019 5:42 PM EDT [facility] 10/02/2019 1:46 PM EDT 10/02/2019 1:50 PM EDT Jerod Daniel PA-C LAB Performing Organization Address [facility]/ZIP Co de Phone Number [facility] [facility] * COMPREHENSIVE METABOLIC PANEL (10/02/2019 1:46 PM EDT) GLUCOSE 90 70 - 100 mg/dL 10/02/2019 5:23 PM EDT [facility] [employer] Comment:Reference range appl icable to fasting specimens only Blood Urea Nitrogen 17 5 - 25 mg/dL 10/02/2019 5:23 PM EDT [facility] [employer] CREAT 0.81 0.5 - 1.1 mg/dL 10/02/2019 5:23 PM EDT [facility] [employer] GLOMERULAR FILTRATION RATE > 60 10/02/2019 5:23 PM EDT [facility] [employer] Comment: If patient is -[place], multiply result by 1.21 Chronic Kidney Disease: < 60 ml/min/1.73 square meters Kidney Failure: < 15 ml/min/1.73 square meters NA 141 135 - 145 mEq/L 10/02/2019 5:23 PM EDT [facility] K 4.0 3.5 - 5.5 mmol/L 10/02/2019 [...] PM EDT Jerod Daniel PA-C LAB [facility] [facility] * HEMOGLOBIN A1C (10/02/2019 1:46 PM EDT) GLYCATED HEMOGLOBIN A1C 6.4 <6.5 % 10/02/2019 7:43 PM EDT [facility] ESTIMATED AVERAGE GLUCOSE 137 mg/dL 10/02/2019 7:43 PM EDT [facility] 10/02/2019 1:46 PM EDT 10/02/2019 1:50 PM EDT Jerod Daniel PA-C LAB Performing Organization Address City/[facility]/ZIP Co de Phone Number [facility] [facility] * (ABNORMAL) FOLIC ACID (10/02/2019 1:46 PM EDT) FOLATE > 20.0(H) 2.8 - 17.0 ng/ml 10/02/2019 5:46 PM EDT [facility] 10/02/2019 1:46 PM EDT 10/02/2019 1:50 PM EDT Jerod Daniel PA-C LAB Performing Organization Address City/[facility]/ZIP Co de Phone Number [facility] [facility] * (ABNORMAL) VITAMIN B-12, ASSAY (10/02/2019 1:46 PM EDT) VITAMIN B12 1593(H) 250 - 900 pg/mL 10/02/2019 5:46 PM EDT [facility] 10/02/2019 1:46 PM EDT 10/02/2019 1:50 PM EDT Jerod Daniel PA-C LAB [facility] [employer] [employer] documented in this encounter Visit Diagnoses Diagnosis Type 2 diabetes mellitus with diabetic neuropathy, without long-term current use of insulin (HCC)- Primary documented in this encounter Care Teams Calender Machine Operator Helper Relationship Specialty Start Date End Date Robinson Howe MD [address] [place] [address] PCP - General Internal Medicine 11/03/14 04/13/20 Jesus Monterroso MD [address] [place] [address] PCP - General Internal Medicine 04/14/20 07/05/20 Abram Gardner MD [address] [place] [address] PCP - General Internal Medicine 07/06/20 12/24/20 Michael Gillette MD [address] [place] [address] PCP - General Internal Medicine 12/25/20 06/28/21 [facility], Pcp [address] [place] [address] PCP - General Internal Medicine 06/29/21 11/14/21 Napoleon Linda [address] [place] [address] PCP - General Internal Medicine 11/15/21 04/20/22 [facility], Pcp [address] [place] [address] PCP - General Internal Medicine 04/21/22 documented as of this encounter
--- OUTSIDE RECORDS SUMMARY | 2024-06-06 13:35 | XMS_ITS | Encounter Summary ---
Author Organization [facility] Address [address] [place] [address] Care Team Providers Care System Consultant Name Role Phone Abram Gardner MD Primary Care Provider Unavailab Michael Duvall MD Primary [facility] Primary Care Provider Napoleon Mejia Primary Care Provider [phone] [facility], Pcp Primary Care Provider Maria T grace Encounter Details Date Type Department Care Team Description 11/06/2020 Refill Adult [address] [address] Abram Gardner MD Social History Tobacco Use [...] on filedocumented in this encounter Care Teams System Consultant Relationship Specialty Start Date End Date Abram Gardner MD PCP - General Internal Medicine 07/06/20 12/24/20 Michael Gillette MD PCP - General Internal Medicine 12/25/20 06/28/21 [facility] Pcp PCP - General Internal Medicine 06/29/21 11/14/21 Napoleon Linda [address] [place] [address] PCP - General Internal Medicine 11/15/21 04/20/22 [facility], Pcp PCP - General Internal Medicine 04/21/22 documented as of this encounter
--- OUTSIDE RECORDS SUMMARY | 2024-06-06 13:35 | XMS_ITS | Encounter Summary ---
Author Organization [facility] Address [address] [place] [address] Care Team Providers Care Gum Cook Name Role Phone Ruddy Cruz MD Primary Care Provider Unavail able Robinson Howe MD Primary Care Provider [phone] Jesus Monterroso MD Primary Care Provider Abram Flores MD Primary Care Provider Unavailab Michael Duvall MD Primary Care Provider Mariaelenavagabriel nguyen [facility], Pcp Primary Care Provider UnavailNapoleon White Primary Care Provider [phone] [facility], Pcp Primary Care Provider Unavailabl e Encounter Details Date Type Department Care Team Description 07/24/2014 Business Doc Medical Records [address] [place] [address] Abstract, Provider Social History Tobacco Use Types [...] on filedocumented in this encounter Care Teams Gum Cook Relationship Specialty Start Date End Date Ruddy Cruz MD PCP - General Internal Medicine 12/19/13 11/02/14 Robinson Howe MD [address] [place] [address] [id number] PCP - General Internal Medicine 11/03/14 04/13/20 Jesus Monterroso MD [address] [place] [address] PCP - General Internal Medicine 04/14/20 07/05/20 Abram Gardner MD [address] [place] [address] PCP - General Internal Medicine 07/06/20 12/24/20 Michael Gillette MD [address] [place] [address] PCP - General Internal Medicine 12/25/20 06/28/21 [facility], Pcp [address] [place] [address] PCP - General Internal Medicine 06/29/21 11/14/21 Napoleon Linda [address] [place], [place] [phone] PCP - General Internal Medicine 11/15/21 04/20/22 [facility], Pcp [address] [place] [address] PCP - General Internal Medicine 04/21/22 documented as of this encounter
--- OUTSIDE RECORDS SUMMARY | 2024-06-06 13:35 | XMS_ITS | Encounter Summary ---
Author Organization [facility] Address [address] [place] [address] Care Team Providers Care Higher Education Administrator Name Role Phone Robinson Howe MD Primary Care Provider + [phone] Jesus Monterroso MD Primary Care Provider Abram Flores MD Primary Care Provider Michael Hinojosa MD Primary Care Provider Driss nguyen [facility], Pcp Primary Care Provider Napoleon Mejia Primary Care Provider [phone] [facility], Pcp Primary Care Provider Maria T grace Encounter Details Date Type Department Care Team Description 01/21/2015 Business Doc Medical Records [address] [place] [address] Abstract, Provider Social History Tobacco Use Types [...] on filedocumented in this encounter Care Teams Higher Education Administrator Relationship Specialty Start Date End Date Robinson Howe MD [address] [place] [address] PCP - General Internal Medicine 11/03/14 04/13/20 Jesus Monterroso MD [address] [place] [address] PCP - General Internal Medicine 04/14/20 07/05/20 Abram Gardner MD [address] [place] [address] PCP - General Internal Medicine 07/06/20 12/24/20 Michael Gillette MD [address] [place] [address] PCP - General Internal Medicine 12/25/20 06/28/21 [facility], Pcp [address] [place], [place] [phone] PCP - General Internal Medicine 06/29/21 11/14/21 Napoleon Linda [address] [place] [address] PCP - General Internal Medicine 11/15/21 04/20/22 [facility], Pcp [address] [place] [address] PCP - General Internal Medicine 04/21/22 documented as of this encounter
--- OUTSIDE RECORDS SUMMARY | 2024-06-06 13:35 | XMS_ITS | Encounter Summary ---
Author Organization [facility] Address [address] [place] [address] Care Team Providers Care Ict Sales Representative Name Role Phone Abram Gardner MD Primary Care Provider Michael Hinojosa MD Primary Care Provider Driss nguyen [facility], Pcp Primary Care Provider Napoleon Mejia Primary Care Provider [phone] [facility] Pcp Primary Care Provider Unavailabl e Reason for Visit * Reason Comments E-prescribe Rx Request Encounter Details Date Type Department Care Team Description 10/27/2020 Refill Adult Medicine [address] [address] Jerod Daniel PA-C [address] [place] [address] E-prescribe Rx Request Social History Tobacco Use [...] N/A Patients current insurance carrier is: Payor: [facility] MCR / Plan: O $0 [facility] [id number] / Product Type: HMO [id number] documented in this encounter Plan of Treatment [...] exacerbation documented in this encounter Care Teams Ict Sales Representative Relationship Specialty Start Date End Date Abram Gardner MD PCP - General Internal Medicine 07/06/20 12/24/20 Michael Gillette MD PCP - General Internal Medicine 12/25/20 06/28/21 [facility], Pcp PCP - General Internal Medicine 06/29/21 11/14/21 Napoleon Linda [address] [place] [place] [address] PCP - General Internal Medicine 11/15/21 04/20/22 [facility], Pcp PCP - General Internal Medicine 04/21/22 documented as of this encounter
--- OUTSIDE RECORDS SUMMARY | 2024-06-06 13:35 | XMS_ITS | Encounter Summary ---
Author Organization [facility] Address [address] [place] [address] Care Team Providers Care Supervisor Specialty Plant Name Role Phone Ruddy Cruz MD Primary Care Provider Unavail able Robinson Howe MD Primary Care Provider [phone] Jesus Monterroso MD Primary Care Provider Abram Flores MD Primary Care Provider Unavailab Michael Duvall MD Primary Care Provider Mariaelenavagabriel nguyen [facility], Pcp Primary Care Provider UnavailNapoleon White Primary Care Provider [phone] [facility], Pcp Primary Care Provider Unavailabl e Encounter Details Date Type Department Care Team Description 07/31/2014 Business Doc Medical Records [address] [place] [address] Abstract, Provider Social History Tobacco Use Types [...] filedocumented in this encounter Care Teams Supervisor Specialty Plant Relationship Specialty Start Date End Date Ruddy Cruz MD PCP - General Internal Medicine 12/19/13 11/02/14 Robinson Howe MD [address] [place] [address] [phone] PCP - General Internal Medicine 11/03/14 04/13/20 Jesus Monterroso MD [address] [place] [address] PCP - General Internal Medicine 04/14/20 07/05/20 Abram Gardner MD [address] [place] [address] PCP - General Internal Medicine 07/06/20 12/24/20 Michael Gillette MD [address] [place] [address] PCP - General Internal Medicine 12/25/20 06/28/21 [facility], Pcp [address] [place] [address] PCP - General Internal Medicine 06/29/21 11/14/21 Napoleon Linda [address] [place], [place] [phone] PCP - General Internal Medicine 11/15/21 04/20/22 [facility], Pcp [address] [place] [address] PCP - General Internal Medicine 04/21/22 documented as of this encounter
--- OUTSIDE RECORDS SUMMARY | 2024-06-06 13:35 | XMS_ITS | Encounter Summary ---
Author Organization [facility] Address [address] [place] [address] Care Team Providers Care Landscape Account Manager Name Role Phone Robinson Howe MD Primary Care Provider + [phone] Jesus Monterroso MD Primary Care Provider Abram Flores MD Primary Care Provider Unavailab Michael Duvall MD Primary Care Provider Driss nguyen [facility], Pcp Primary Care Provider Unavailabl e Napoleon Linda Primary Care Provider [phone] [facility], Pcp Primary Care Provider Unavailabl e Reason for Visit * Reason Onset Date Comments Testing 06/28/2016 Encounter Details Date Type Department Care Team Description 06/28/2016 Telephone Radiology - [address] [phone] Jerod Daniel PA-C [address] [place] [address] [phone] Testing Social History Tobacco Use Types Packs/Day [...] on filedocumented in this encounter Care Teams Landscape Account Manager Relationship Specialty Start Date End Date Robinson Howe MD [address] [place] [address] PCP - General Internal Medicine 11/03/14 04/13/20 Jesus Monterroso MD [address] [place] [address] PCP - General Internal Medicine 04/14/20 07/05/20 Abram Gardner MD [address] [place] [address] PCP - General Internal Medicine 07/06/20 12/24/20 Michael Gillette MD [address] [place] [address] PCP - General Internal Medicine 12/25/20 06/28/21 [facility], Pcp [address] [place] [address] PCP - General Internal Medicine 06/29/21 11/14/21 Napoleon Linda [address] [place] [address] PCP - General Internal Medicine 11/15/21 04/20/22 [facility], Pcp [address] [place] [address] PCP - General Internal Medicine 04/21/22 documented as of this encounter
--- OUTSIDE RECORDS SUMMARY | 2024-06-06 13:35 | XMS_ITS | Encounter Summary ---
Author Organization [facility] Address [address] [place] [address] Care Team Providers Care Brush Washer Name Role Phone Ruddy Cruz MD Primary Care Provider Unavail able Robinson Howe MD Primary Care Provider [phone] Jesus Monterroso MD Primary Care Provider Abram Flores MD Primary Care Provider Unavailab Michael Duvall MD Primary Care Provider Unavai patrick [facility], Pcp Primary Care Provider Unavailabl e Napoleon Linda Primary Care Provider [phone] [facility], [facility] Primary Care Provider Unavailabl e Reason for Visit * Reason Onset Date Comments Follow-up Appt Unavailable 07/29/2014 Encounter Details Date Type Department Care Team Description 07/29/2014 Telephone Adult [address] [phone] Ruddy Cruz MD Follow-up Appt Unavailable Social [...] on filedocumented in this encounter Care Teams Brush Washer Relationship Specialty Start Date End Date Ruddy Cruz MD PCP - General Internal Medicine 12/19/13 11/02/14 Robinson Howe MD [address] [place], [place] [phone] PCP - General Internal Medicine 11/03/14 04/13/20 Jesus Monterroso MD [address] [place] [address] PCP - General Internal Medicine 04/14/20 07/05/20 Abram Gardner MD [address] [place] [address] PCP - General Internal Medicine 07/06/20 12/24/20 Michael Gillette MD [address] [place] [address] PCP - General Internal Medicine 12/25/20 06/28/21 [facility], Pcp [address] [place] [address] PCP - General Internal Medicine 06/29/21 11/14/21 Napoleon Linda [address] [place] [address] PCP - General Internal Medicine 11/15/21 04/20/22 [facility], Pcp [address] [place] [address] PCP - General Internal Medicine 04/21/22 documented as of this encounter
--- OUTSIDE RECORDS SUMMARY | 2024-06-06 13:35 | XMS_ITS | Encounter Summary ---
Author Organization [facility] Address [address] [place] [address] Care Team Providers Care Technical Operations Vice President Name Role Phone Robinson Howe MD Primary Care Provider [phone] Jesus Montreroso MD Primary Care Provider Abram Flores MD Primary Care Provider Unavailab Michael Duvall MD Primary Care Provider Driss nguyen [facility], Pcp Primary Care Provider Unavailabl Napoleon Ramirez Primary Care Provider [phone] [facility], Pcp Primary Care Provider Unavailabl e Reason for Visit * Reason Comments E-prescribe Rx Request Encounter Details Date Type Department Care Team Description 02/09/2017 Refill Adult Medicine [address] [phone] Robinson Howe MD [address] [place] [address] [phone] E-prescribe Rx Request Social History Tobacco Use [...] / Plan: [place] / Product Type: MEDICARE [id number] documented in this encounter Plan of Treatment [...] limb documented in this encounter Care Teams Technical Operations Vice President Relationship Specialty Start Date End Date Robinson Howe MD [address] [place] [address] PCP - General Internal Medicine 11/03/14 04/13/20 Jesus Monterroso MD [address] [place] [address] PCP - General Internal Medicine 04/14/20 07/05/20 Abram Gardner MD [address] [place] [address] PCP - General Internal Medicine 07/06/20 12/24/20 Michael Gillette MD [address] [place] [address] PCP - General Internal Medicine 12/25/20 06/28/21 [facility], Pcp [address] [place] [address] PCP - General Internal Medicine 06/29/21 11/14/21 Napoleon Linda [address] [place] [address] PCP - General Internal Medicine 11/15/21 04/20/22 [facility], Pcp [address] [place] [address] PCP - General Internal Medicine 04/21/22 documented as of this encounter
--- OUTSIDE RECORDS SUMMARY | 2024-06-06 13:35 | XMS_ITS | Encounter Summary ---
Author Organization [facility] Address [address] [place] [address] Care Team Providers Care Copper Etcher Name Role Phone Abram Gardner MD Primary Care Provider Michael Hinojosa MD Primary Care Provider Driss nguyen [facility], Pcp Primary Care Provider Napoleon Mejia Primary Care Provider [phone] [facility], Pcp Primary Care Provider Maria T grace Encounter Details Date Type Department Care Team Description 07/10/2020 Release of Information Medical Records [address] [place] [address] Abstract, Provider Social History Tobacco Use Types [...] on filedocumented in this encounter Care Teams Copper Etcher Relationship Specialty Start Date End Date Abram Gardner MD PCP - General Internal Medicine 07/06/20 12/24/20 Michael Gillette MD PCP - General Internal Medicine 12/25/20 06/28/21 [facility], Pcp PCP - General Internal Medicine 06/29/21 11/14/21 Napoleon Linda [address] [place] [address] PCP - General Internal Medicine 11/15/21 04/20/22 [facility], Pcp PCP - General Internal Medicine 04/21/22 documented as of this encounter
--- OUTSIDE RECORDS SUMMARY | 2024-06-06 13:35 | XMS_ITS | Encounter Summary ---
Author Organization [facility] Address [address] [place] [address] Care Team Providers Care Section Laborer Name Role Phone Ruddy Cruz MD Primary Care Provider Unavail able Robinson Howe MD Primary Care Provider [phone] Jesus Monterroso MD Primary Care Provider Abram Flores MD Primary Care Provider Unavailab Michael Duvall MD Primary Care Provider Driss nguyen [facility], Pcp Primary Care Provider UnavailNapoleon White Primary Care Provider [phone] [facility], Pcp Primary Care Provider Unavailguido e Encounter Details Date Type Department Care Team Description 03/25/2014 Home Health Certification Medical Records [address] [place] [address] Abstract, Provider Social History Tobacco Use Types [...] on filedocumented in this encounter Care Teams Section Laborer Relationship Specialty Start Date End Date Ruddy Cruz MD PCP - General Internal Medicine 12/19/13 11/02/14 Robinson Howe MD [address] [place] [address] [id number] PCP - General Internal Medicine 11/03/14 04/13/20 Jesus Monterroso MD [address] [place] [address] PCP - General Internal Medicine 04/14/20 07/05/20 Abram Gardner MD [address] [place] [address] PCP - General Internal Medicine 07/06/20 12/24/20 Mcihael iGllette MD [address] [place] [address] PCP - General Internal Medicine 12/25/20 06/28/21 [facility], Pcp [address] [place] [address] PCP - General Internal Medicine 06/29/21 11/14/21 Napoleon Linda [address] [place] [address] PCP - General Internal Medicine 11/15/21 04/20/22 [facility], Pcp [address] [place] [address] PCP - General Internal Medicine 04/21/22 documented as of this encounter
--- OUTSIDE RECORDS SUMMARY | 2024-06-06 13:35 | XMS_ITS | Clinical Summary ---
Author Organization [employer] Address [address] [place] [address] [address] [place] [address] Care Team Providers Care Doctor Of Veterinary Medicine Name Role Phone Unavailable Primary Care Provider [...] Description 03/15/2024 10:00 AM EST Office Visit [facility] [address] [place] [address] Madeline Baltazar Dental plaque (Primary Dx) from [...] Description 09/13/2024 3:00 PM EDT Office Visit [facility] [address], [place] [phone] Delaney, Madeline [address] [place] [address] Health Maintenance Due Date Last Done Comments [...] to Health Maintenance Insurance DENTAL - [facility] Member Subscriber Plan / Payer (Ef fective 2017-Present) Name:Joanna Osman Relation to Subscriber:Self Name:Joanna Osman Payer ID:Not on file Group ID:[id number] Type:Not on file Address: [address] - [facility]ENT[facility] - [facility]
--- OUTSIDE RECORDS SUMMARY | 2024-06-06 13:35 | XMS_ITS | Encounter Summary ---
Author Organization [facility] Address [address] [place] [address] Care Team Providers Care Technical Communicator Name Role Phone Robinson Howe MD Primary Care Provider + [phone] Jesus Monterroso MD Primary Care Provider Abram Flores MD Primary Care Provider Unavailab Michael Duvall MD Primary Care Provider Driss nguyen [facility], Pcp Primary Care Provider Unavailabl Napoleon Ramirez Primary Care Provider [phone] [facility], Pcp Primary Care Provider Unavailabl e Reason for Visit * Reason Comments E-prescribe Rx Request Encounter Details Date Type Department Care Team Description 03/15/2017 Refill Adult Medicine [address] [id number] Jerod Daniel PA-C [address] [place] [address] [id number] E-prescribe Rx Request Social History Tobacco Use [...] / Plan: [place] / Product Type: [place]ICARE [id number] documented in this encounter Plan of Treatment [...] exacerbation documented in this encounter Care Teams Technical Communicator Relationship Specialty Start Date End Date Robinson Howe MD [address] [place] [address] PCP - General Internal Medicine 11/03/14 04/13/20 Jesus Monterroso MD [address] [place] [address] PCP - General Internal Medicine 04/14/20 07/05/20 Abram Gardner MD [address] [place] [address] PCP - General Internal Medicine 07/06/20 12/24/20 Michael Gillette MD [address] [place] [address] PCP - General Internal Medicine 12/25/20 06/28/21 [facility], Pcp [address] [place], [place] [phone] PCP - General Internal Medicine 06/29/21 11/14/21 Napoleon Linda [address] [place] [address] PCP - General Internal Medicine 11/15/21 04/20/22 [facility], Pcp [address] [place] [address] PCP - General Internal Medicine 04/21/22 documented as of this encounter
--- OUTSIDE RECORDS SUMMARY | 2024-06-06 13:35 | XMS_ITS | Encounter Summary ---
Author Organization [facility] Address [address] [place] [address] Care Team Providers Care Strategic Insights Lead Name Role Phone Robinson Howe MD Primary Care Provider + [phone] Jesus Monterroso MD Primary Care Provider Abram Flores MD Primary Care Provider Unavailab Michael Duvall MD Primary Care Provider Unavai patrick [facility], Pcp Primary Care Provider UnavailNapoleon White Primary Care Provider [phone] [facility], Pcp Primary Care Provider Unavailguido e Encounter Details Date Type Department Care Team Description 01/18/2018 Orders Only Medical Records [address] [place] [address] Terrence Corral MD [address] [place] [phone] Social History Tobacco Use Types Packs/Day [...] on filedocumented in this encounter Care Teams Strategic Insights Lead Relationship Specialty Start Date End Date Robinson Howe MD [address] [place] [address] PCP - General Internal Medicine 11/03/14 04/13/20 Jesus Monterroso MD [address] [place] [address] PCP - General Internal Medicine 04/14/20 07/05/20 Abram Gardner MD [address] [place] [address] PCP - General Internal Medicine 07/06/20 12/24/20 Michael Gillette MD [address] [place] [address] PCP - General Internal Medicine 12/25/20 06/28/21 [facility], Pcp [address] [place] [address] PCP - General Internal Medicine 06/29/21 11/14/21 Napoleon Linda [address] [place] [address] PCP - General Internal Medicine 11/15/21 04/20/22 [facility], Pcp [address] [place], [place] [phone] PCP - General Internal Medicine 04/21/22 documented as of this encounter
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
--- OUTSIDE RECORDS SUMMARY | 2024-06-06 13:35 | XMS_ITS | Encounter Summary ---
Author Organization [facility] Address [address] [place] [address] Care Team Providers Care Fiber Drier Operator Name Role Phone Robinson Howe MD Primary Care Provider + [phone] Jesus Monterroso MD Primary Care Provider Abram Flores MD Primary Care Provider Unavailab Michael Duvall MD Primary Care Provider Driss nguyen [facility], Pcp Primary Care Provider Unavailabl Napoleon Ramirez Primary Care Provider [phone] [facility], Pcp Primary Care Provider Unavailabl e Reason for Visit * Reason Onset Date Comments Sleep Study 10/30/2018 Encounter Details Date Type Department Care Team Description 10/30/2018 Telephone Pediatrics - [address] [address] Meredith Mcdonald FNP [address] [place] [address] Sleep Study Social History Tobacco Use Types [...] on filedocumented in this encounter Care Teams Fiber Drier Operator Relationship Specialty Start Date End Date Robinson Howe MD [address] [place] [address] PCP - General Internal Medicine 11/03/14 04/13/20 Jesus Monterroso MD [address] [place] [address] PCP - General Internal Medicine 04/14/20 07/05/20 Abram Gardner MD [address] [place] [address] PCP - General Internal Medicine 07/06/20 12/24/20 Michael Gillette MD [address] [place] [address] PCP - General Internal Medicine 12/25/20 06/28/21 [facility], Pcp [address] [place] [address] PCP - General Internal Medicine 06/29/21 11/14/21 Napoleon Linda [address] [place] [address] PCP - General Internal Medicine 11/15/21 04/20/22 [facility], Pcp [address] [place] [address] PCP - General Internal Medicine 04/21/22 documented as of this encounter
--- OUTSIDE RECORDS SUMMARY | 2024-06-06 13:35 | XMS_ITS | Encounter Summary ---
Author Organization [facility] Address [address] [place] [address] Care Team Providers Care Tobacco Buyer Name Role Phone Abram Gardner MD Primary Care Provider Michael Hinojosa MD Primary Care Provider Driss nguyen [facility], Pcp Primary Care Provider Napoleon Mejia Primary Care Provider [phone] [facility], Pcp Primary Care Provider Unavailabl e Reason for Visit * Reason Comments E-prescribe Rx Request Encounter Details Date Type Department Care Team Description 08/25/2020 Refill Allergy [place] [address] [place] [address] Cait Dumas MD E-prescribe Rx [...] filedocumented in this encounter Care Teams Tobacco Buyer Relationship Specialty Start Date End Date Abram Gardner MD PCP - General Internal Medicine 07/06/20 12/24/20 Michael Gillette MD PCP - General Internal Medicine 12/25/20 06/28/21 [facility]cp PCP - General Internal Medicine 06/29/21 11/14/21 Napoleon Linda [address] [place] [address] PCP - General Internal Medicine 11/15/21 04/20/22 [facility]cp PCP - General Internal Medicine 04/21/22 documented as of this encounter
--- OUTSIDE RECORDS SUMMARY | 2024-06-06 13:35 | XMS_ITS | Encounter Summary ---
Author Organization [facility] Address [address] [place] [address] Care Team Providers Care Sanitizer Name Role Phone Robinson Howe MD Primary Care Provider + [phone] Jesus Monterroso MD Primary Care Provider Abram Flores MD Primary Care Provider Unavailab Michael Duvall MD Primary Care Provider Driss nguyen [facility], Pcp Primary Care Provider Unavailabl Napoleon Ramirez Primary Care Provider [phone] [facility], Pcp Primary Care Provider Unavailabl e Reason for Visit * Reason Onset Date Comments Testing 06/02/2016 MRI lower extrem ity other than JT [id number] Encounter Details Date Type Department Care Team Description 06/02/2016 Telephone Adult [address] [phone] Robinson Howe MD [address] [place] [address] [phone] Testing (MRI lower extremity other than JT [id number]) Social History Tobacco Use Types Packs/Day Years [...] 06/02/2016 4:10 PM EDT Order faxed to [facility] they will contact patient with appointment information. Notification letter mailed to patient * Telephone Encounter - Alejandra Rasmussenrar - 06/02/2016 1:45 PM EDT Medicare/Medicaid No auth required 06/02/16-06/02/17 [id number] [facility] Sent to [facility] for scheduling documented in this encounter Plan of Treatment Not on file documented as of this encounter Visit Diagnoses Not on filedocumented in this encounter Care Teams Sanitizer Relationship Specialty Start Date End Date Robinson Howe MD [address] [place] [address] PCP - General Internal Medicine 11/03/14 04/13/20 Jesus Monterroso MD [address] [place] [address] PCP - General Internal Medicine 04/14/20 07/05/20 Abram Gardner MD [address] [place] [address] PCP - General Internal Medicine 07/06/20 12/24/20 Michael Gillette MD [address] [place] [address] PCP - General Internal Medicine 12/25/20 06/28/21 [facility], Pcp [address] [place], [place] [phone] PCP - General Internal Medicine 06/29/21 11/14/21 Napoleon Linda [address] [place] [address] PCP - General Internal Medicine 11/15/21 04/20/22 [facility], Pcp [address] [place] [address] PCP - General Internal Medicine 04/21/22 documented as of this encounter
--- OUTSIDE RECORDS SUMMARY | 2024-06-06 13:35 | XMS_ITS | Encounter Summary ---
Author Organization [facility] Address [address] [place] [address] Care Team Providers Care Publicist Name Role Phone Abram Gardner MD Primary Care Provider Michael Hinojosa MD Primary Care Provider Driss nguyen [facility], Pcp Primary Care Provider Napoleon Mejia Primary Care Provider [phone] [facility], Pcp Primary Care Provider Maria T grace Encounter Details Date Type Department Care Team Description 08/05/2020 Refill Hypertension - [place] [address] [place] [address] Louisa Hart, Pharm.D Social History Tobacco Use [...] on filedocumented in this encounter Care Teams Publicist Relationship Specialty Start Date End Date Abram Gardner MD PCP - General Internal Medicine 07/06/20 12/24/20 Michael Gillette MD PCP - General Internal Medicine 12/25/20 06/28/21 [facility]cp PCP - General Internal Medicine 06/29/21 11/14/21 Napoleon Linda [address] [place] [address] PCP - General Internal Medicine 11/15/21 04/20/22 [facility]cp PCP - General Internal Medicine 04/21/22 documented as of this encounter
--- OUTSIDE RECORDS SUMMARY | 2024-06-06 13:35 | XMS_ITS | Encounter Summary ---
Author Organization [facility] Address [address] [place] [address] Care Team Providers Care Edge Roller Name Role Phone Abram Gardner MD Primary Care Provider Michael Hinojosa MD Primary Care Provider Driss nguyen [facility], Pcp Primary Care Provider Napoleon Mejia Primary Care Provider [facility] Pcp Primary Care Provider Unavailabl e Reason for Visit * Reason Comments E-prescribe Rx Request Encounter Details Date Type Department Care Team Description 07/22/2020 Refill Adult Medicine [address] [address] Robinson Howe MD [address] [place] [address] E-prescribe Rx Request Social History Tobacco Use [...] N/A Patients current insurance carrier is: Payor: [facility] [employer] M[employer] / Plan: HMO $0 [facility] [id number] / Product Type: HMO [id number] documented in this encounter Plan of Treatment [...] exacerbation documented in this encounter Care Teams Edge Roller Relationship Specialty Start Date End Date Abram Gardner MD PCP - General Internal Medicine 07/06/20 12/24/20 Michael Gillette MD PCP - General Internal Medicine 12/25/20 06/28/21 [facility]cp PCP - General Internal Medicine 06/29/21 11/14/21 Napoleon Linda [address] [place] [address] PCP - General Internal Medicine 11/15/21 04/20/22 [facility], [facility]cp PCP - General Internal Medicine 04/21/22 documented as of this encounter
--- OUTSIDE RECORDS SUMMARY | 2024-06-06 13:35 | XMS_ITS | Encounter Summary ---
Author Organization [facility] Address [address] [place] [address] Care Team Providers Care Bonding And Composite Fabricator Name Role Phone Robinson Howe MD Primary Care Provider + [phone] Jesus Monterroso MD Primary Care Provider Abram Flores MD Primary Care Provider Unavailab Michael Duvall MD Primary Care Provider Driss nguyen [facility], Pcp Primary Care Provider Unavailabl Napoleon Ramirez Primary Care Provider [phone] [facility], Pcp Primary Care Provider Unavailabl e Reason for Visit * Reason Onset Date Comments APPOINTMENT 09/10/2018 Encounter Details Date Type Department Care Team Description 09/10/2018 Telephone Podiatry - [address] [phone] Candido Nina DO APPOINTMENT Social History Tobacco [...] the daughter to have someone that speaks upper sorbian come with her because there may have been a communication issue when the patient was here last withthe educational interpreter phone. She is scheduled on 10/04. GIANCARLO [...] call the patient x 2 with the seismic interpreter phone. No anser, no voicemail. I spoke [...] procedure for this appointment. She is a Kiswahili speaker, so is requsting someone that can speak Kiswahili. Please follow up and advise patient. documented in this encounter Plan of Treatment Not on file documented as of this encounter Visit Diagnoses Not on filedocumented in this encounter Care Teams Bonding And Composite Fabricator Relationship Specialty Start Date End Date Robinson Howe MD [address] [place] [address] PCP - General Internal Medicine 11/03/14 04/13/20 Jesus Monterroso MD [address] [place] [address] PCP - General Internal Medicine 04/14/20 07/05/20 Abram Gardner MD [address] [place] [address] PCP - General Internal Medicine 07/06/20 12/24/20 Michael Gillette MD [address] [place] [address] PCP - General Internal Medicine 12/25/20 06/28/21 [facility], Pcp [address] [place] [address] PCP - General Internal Medicine 06/29/21 11/14/21 Napoleon Linda [address] [place] [address] PCP - General Internal Medicine 11/15/21 04/20/22 [facility], Pcp [address] [place] [address] PCP - General Internal Medicine 04/21/22 documented as of this encounter
--- OUTSIDE RECORDS SUMMARY | 2024-06-06 13:35 | XMS_ITS | Encounter Summary ---
Author Organization [facility] Address [address] [place] [address] Care Team Providers Care Retention Manager Name Role Phone Robinson Howe MD Primary Care Provider + [phone] Jesus Monterroso MD Primary Care Provider Abram Flores MD Primary Care Provider Unavailab Michael Duvall MD Primary Care Provider Mariaelenavagabriel nguyen [facility], Pcp Primary Care Provider UnavailNapoleon White Primary Care Provider [phone] [facility], Pcp Primary Care Provider Unavailabl e Reason for Visit * Reason Comments E-prescribe Rx Request Encounter Details Date Type Department Care Team Description 07/20/2016 Refill Physiatry - [address] [address] Alexandria Todd MD [address] [place] [address] [place] [id number] E-prescribe Rx Request Social History Tobacco Use [...] on filedocumented in this encounter Care Teams Retention Manager Relationship Specialty Start Date End Date Robinson Howe MD [address] [place] [address] PCP - General Internal Medicine 11/03/14 04/13/20 Jesus Monterroso MD [address] [place] [address] PCP - General Internal Medicine 04/14/20 07/05/20 Abram Gardner MD [address] [place], [place] [phone] PCP - General Internal Medicine 07/06/20 12/24/20 Michael Gillette MD [address] [place] [address] PCP - General Internal Medicine 12/25/20 06/28/21 [facility], Pcp [address] [place] [address] PCP - General Internal Medicine 06/29/21 11/14/21 Napoleon Linda [address] [place], [place] [phone] PCP - General Internal Medicine 11/15/21 04/20/22 [facility], Pcp [address] [place], [place] [phone] PCP - General Internal Medicine 04/21/22 documented as of this encounter
--- OUTSIDE RECORDS SUMMARY | 2024-06-06 13:35 | XMS_ITS | Encounter Summary ---
Author Organization [facility] Address [address] [place] [address] Care Team Providers Care Research Program Manager Name Role Phone Robinson Howe MD Primary Care Provider + [phone] Jesus Monterroso MD Primary Care Provider Abram Flores MD Primary Care Provider Michael Hinojosa MD Primary Care Provider Driss nguyen [facility], Pcp Primary Care Provider Napoleon Mejia Primary Care Provider [phone] [facility], Pcp Primary Care Provider Maria T grace Encounter Details Date Type Department Care Team Description 02/28/2018 Grout Machine Operator Report Medical Records [address] [place] [address] Abstract, Provider Social History Tobacco Use Types [...] filedocumented in this encounter Care Teams Research Program Manager Relationship Specialty Start Date End Date Robinson Howe MD [address] [place] [address] PCP - General Internal Medicine 11/03/14 04/13/20 Jesus Monterroso MD [address] [place] [address] PCP - General Internal Medicine 04/14/20 07/05/20 Abram Gardner MD [address] [place], [place] [phone] PCP - General Internal Medicine 07/06/20 12/24/20 Michael Gillette MD [address] [place] [address] PCP - General Internal Medicine 12/25/20 06/28/21 [facility], Pcp [address] [place], [place] [address] PCP - General Internal Medicine 06/29/21 11/14/21 Napoleon Linda [address] [place] [address] PCP - General Internal Medicine 11/15/21 04/20/22 [facility], Pcp [address] [place] [address] PCP - General Internal Medicine 04/21/22 documented as of this encounter
--- OUTSIDE RECORDS SUMMARY | 2024-06-06 13:35 | XMS_ITS | Encounter Summary ---
Author Organization [facility] Address [address] [place] [address] Care Team Providers Care Ice Skating Instructor Name Role Phone Robinson Howe MD Primary Care Provider + [phone] Jesus Monterroso MD Primary Care Provider Abram Flores MD Primary Care Provider Unavailab Michael Duvall MD Primary Care Provider Driss nguyen [facility], Pcp Primary Care Provider Unavailabl e Napoleon Linda Primary Care Provider [phone] [facility], Pcp Primary Care Provider Unavailabl e Reason for Visit * Reason Onset Date Comments Prior Authorization 08/11/2016 Encounter Details Date Type Department Care Team Description 08/11/2016 Telephone Adult [address] [phone] Robinson Howe MD [address] [place] [address] [phone] Prior Authorization Social History Tobacco Use Types [...] Is this a Cover My Meds request: [place] of Medication Lidocaine Dose of Medication 5% patch How does patient take this med? Place one patch onto the skin for 12 hours a day What Pharmacy did the fax come from: [facility] fax #: not on fax Third Libertarian Information from fax: What Prescription Plan does the patient have? na BIN/PCN if applicable: not on fax Cardholder ID:[id number] Person Code: not on fax Relationship Code: not on fax Help desk phone: not on fax documented in this encounter Plan of Treatment Not on file documented as of this encounter Visit Diagnoses Not on filedocumented in this encounter Care Teams Ice Skating Instructor Relationship Specialty Start Date End Date Robinson Howe MD [address] [place] [address] PCP - General Internal Medicine 11/03/14 04/13/20 Jesus Monterroso MD [address] [place], [place] [phone] PCP - General Internal Medicine 04/14/20 07/05/20 Abram Gardner MD [address] [place] [address] PCP - General Internal Medicine 07/06/20 12/24/20 Michael Gillette MD [address] [place] [address] PCP - General Internal Medicine 12/25/20 06/28/21 [facility], Pcp [address] [place], [place] [phone] PCP - General Internal Medicine 06/29/21 11/14/21 Napoleon Linda [address] [place] [address] PCP - General Internal Medicine 11/15/21 04/20/22 [facility], Pcp [address] [place] [address] PCP - General Internal Medicine 04/21/22 documented as of this encounter
--- OUTSIDE RECORDS SUMMARY | 2024-06-06 13:35 | XMS_ITS | Encounter Summary ---
Author Organization [facility] Address [address] [place] [address] Care Team Providers Care Executive Consultant Name Role Phone Louisa Machuac MD Primary Care Provider Unavailable Ruddy Cruz MD Primary Care Provider Unavail able Robinson Howe MD Primary Care Provider [phone] Jesus Monterroso MD Primary Care Provider Abram Flores MD Primary Care Provider Unavailab Michael Duvall MD Primary Care Provider Driss nguyen [facility], Pcp Primary Care Provider UnavailNapoleon White Primary Care Provider [phone] [facility], Pcp Primary Care Provider Maria T grace Encounter Details Date Type Department Care Team Description 07/17/2013 Business Doc Medical Records [address] [place] [address] Abstract, Provider Social History Tobacco Use Types [...] filedocumented in this encounter Care Teams Executive Consultant Relationship Specialty Start Date End Date Louisa Machuca MD PCP - General Internal Medicine 07/17/13 Ruddy Cruz MD PCP - General Internal Medicine 12/19/13 11/02/14 Robinson Howe MD [address] [place] [address] PCP - General Internal Medicine 11/03/14 04/13/20 Jesus Monterroso MD [address] [place] [address] PCP - General Internal Medicine 04/14/20 07/05/20 Abram Gardner MD [address] [place] [address] PCP - General Internal Medicine 07/06/20 12/24/20 Michael Gillette MD [address] [place] [address] PCP - General Internal Medicine 12/25/20 06/28/21 [facility], Pcp [address] [place] [address] PCP - General Internal Medicine 06/29/21 11/14/21 Napoleon Linda [address] [place] [address] PCP - General Internal Medicine 11/15/21 04/20/22 [facility], Pcp [address] [place] [address] PCP - General Internal Medicine 04/21/22 documented as of this encounter
--- OUTSIDE RECORDS SUMMARY | 2024-06-06 13:35 | XMS_ITS | Encounter Summary ---
Author Organization [facility] Address [address] [place] [address] Care Team Providers Care Advertising Copy Writer Name Role Phone Robinson Howe MD Primary Care Provider [phone] Jesus Monterroso MD Primary Care Provider Abram Flores MD Primary Care Provider Michael Hinojosa MD Primary Care Provider Driss nguyen [facility], Pcp Primary Care Provider Napoleon Mejia Primary Care Provider [phone] [facility], Pcp Primary Care Provider Maria T grace Encounter Details Date Type Department Care Team Description 08/07/2016 Release of Information Medical Records [address] [place] [address] Abstract, Provider Social History Tobacco Use Types [...] on filedocumented in this encounter Care Teams Advertising Copy Writer Relationship Specialty Start Date End Date Robinson Howe MD [address] [place] [address] PCP - General Internal Medicine 11/03/14 04/13/20 Jesus Monterroso MD [address] [place] [address] PCP - General Internal Medicine 04/14/20 07/05/20 Abram Gardner MD [address] [place] [address] PCP - General Internal Medicine 07/06/20 12/24/20 Michael Gillette MD [address] [place] [address] 23984 PCP - General Internal Medicine 12/25/20 06/28/21 [facility], Pcp [address] [place], [place] [phone] PCP - General Internal Medicine 06/29/21 11/14/21 Napoleon Linda [address] [place] [address] PCP - General Internal Medicine 11/15/21 04/20/22 [facility], Pcp [address] [place] [address] PCP - General Internal Medicine 04/21/22 documented as of this encounter
--- OUTSIDE RECORDS SUMMARY | 2024-06-06 13:35 | XMS_ITS | Encounter Summary ---
Author Organization [facility] Address [address] [place] [address] Care Team Providers Care Study Hall Supervisor Name Role Phone Robinson Howe MD Primary Care Provider [phone] Jesus Monterroso MD Primary Care Provider Abram Flores MD Primary Care Provider Unavailab Michael Duvall MD Primary Care Provider Mariaelenavagabriel nguyen [facility], Pcp Primary Care Provider Unavailabl e Napoleon Linda Primary Care Provider [phone] [facility], Pcp Primary Care Provider Unavailabl e Reason for Visit * Reason Onset Date Comments Faxed Order 09/26/2017 Encounter Details Date Type Department Care Team Description 09/26/2017 Telephone Adult [address] [id number] Robinson Howe MD [address] [place] [address] [id number] Faxed Order Social History Tobacco Use Types [...] Yulisa Alexandra - 09/26/2017 10:58 AM EDT [facility], Referral Form, documented in this encounter Plan of Treatment Not on file documented as of this encounter Visit Diagnoses Not on filedocumented in this encounter Care Teams Study Hall Supervisor Relationship Specialty Start Date End Date Robinson Howe MD [address] [place] [address] PCP - General Internal Medicine 11/03/14 04/13/20 Jesus Monterroso MD [address] [place] [address] PCP - General Internal Medicine 04/14/20 07/05/20 Abram Gardner MD [address] [place] [address] PCP - General Internal Medicine 07/06/20 12/24/20 Michael Gillette MD [address] [place] [address] PCP - General Internal Medicine 12/25/20 06/28/21 [facility], Pcp [address] [place] [address] PCP - General Internal Medicine 06/29/21 11/14/21 Napoleon Linda [address] [place] [address] PCP - General Internal Medicine 11/15/21 04/20/22 [facility], Pcp [address] [place], [place] [phone] PCP - General Internal Medicine 04/21/22 documented as of this encounter
--- OUTSIDE RECORDS SUMMARY | 2024-06-06 13:35 | XMS_ITS | Encounter Summary ---
Author Organization [facility] Address [address] [place] [address] Care Team Providers Care Sliding Joint Maker Name Role Phone Abram Gardner MD Primary Care Provider Unavailab Michael Duvall MD Primary Care Provider [facility] Primary Care Provider Napoleon Mejia Primary Care Provider [phone] [facility], Pcp Primary Care Provider Maria T grace Encounter Details Date Type Department Care Team Description 11/06/2020 Refill Adult [address] [address] Abram Gardner MD Social History Tobacco Use [...] on filedocumented in this encounter Care Teams Sliding Joint Maker Relationship Specialty Start Date End Date Abram Gardner MD PCP - General Internal Medicine 07/06/20 12/24/20 Michael Gillette MD PCP - General Internal Medicine 12/25/20 06/28/21 [facility]cp PCP - General Internal Medicine 06/29/21 11/14/21 Napoleon Linda [address] [place] [address] PCP - General Internal Medicine 11/15/21 04/20/22 [facility]cp PCP - General Internal Medicine 04/21/22 documented as of this encounter
--- OUTSIDE RECORDS SUMMARY | 2024-06-06 13:35 | XMS_ITS | Encounter Summary ---
Author Organization [facility] Address [address] [place] [address] Care Team Providers Care Operating Room Registered Nurse Name Role Phone Robinson Howe MD Primary Care Provider + [phone] Jesus Monterroso MD Primary Care Provider Abram Flores MD Primary Care Provider Michael Hinojosa MD Primary Care Provider Driss nguyen [facility], Pcp Primary Care Provider Napoleon Mejia Primary Care Provider [phone] [facility], Pcp Primary Care Provider Maria T grace Encounter Details Date Type Department Care Team Description 10/30/2015 Business Doc Medical Records [address] [place] [address] Abstract, Provider Social History Tobacco Use Types [...] on filedocumented in this encounter Care Teams Operating Room Registered Nurse Relationship Specialty Start Date End Date Robinson Howe MD [address] [place] [address] PCP - General Internal Medicine 11/03/14 04/13/20 Jesus Monterroso MD [address] [place] [address] PCP - General Internal Medicine 04/14/20 07/05/20 Abram Gardner MD [address] [place] [address] PCP - General Internal Medicine 07/06/20 12/24/20 Michael Gillette MD [address] [place] [address] PCP - General Internal Medicine 12/25/20 06/28/21 [facility] Pcp [address] [place], [place] [phone] PCP - General Internal Medicine 06/29/21 11/14/21 Napoleon Linda [address] [place] [address] PCP - General Internal Medicine 11/15/21 04/20/22 [facility], Pcp [address] [place] [address] PCP - General Internal Medicine 04/21/22 documented as of this encounter
--- OUTSIDE RECORDS SUMMARY | 2024-06-06 13:35 | XMS_ITS | Encounter Summary ---
Author Organization [facility] Address [address] [place] [address] Care Team Providers Care Computer Programmer Name Role Phone Louisa Machuca MD Primary Care Provider Unavailable Ruddy Cruz MD Primary Care Provider Unavail able Robinson Howe MD Primary Care Provider [phone] Jesus Monterroso MD Primary Care Provider Abram Flores MD Primary Care Provider Unavailab Michael Duvall MD Primary Care Provider Driss nguyen [facility], Pcp Primary Care Provider UnavailNapoleon White Primary Care Provider [phone] [facility], Pcp Primary Care Provider Maria T grace Encounter Details Date Type Department Care Team Description 12/18/2013 Business Doc Medical Records [address] [place] [address] Abstract, Provider Social History Tobacco Use Types [...] on filedocumented in this encounter Care Teams Computer Programmer Relationship Specialty Start Date End Date Louisa Machuca MD PCP - General Internal Medicine 07/17/13 Ruddy Cruz MD PCP - General Internal Medicine 12/19/13 11/02/14 Robinson Howe MD [address] [place] [address] PCP - General Internal Medicine 11/03/14 04/13/20 Jesus Monterroso MD [address] [place] [address] PCP - General Internal Medicine 04/14/20 07/05/20 Abram Gardner MD [address] [place] [address] PCP - General Internal Medicine 07/06/20 12/24/20 Michael Gillette MD [address] [place] [address] PCP - General Internal Medicine 12/25/20 06/28/21 [facility], Pcp [address] [place] [address] PCP - General Internal Medicine 06/29/21 11/14/21 Napoleon Linda [address] [place] [address] PCP - General Internal Medicine 11/15/21 04/20/22 [facility], Pcp [address] [place] [address] PCP - General Internal Medicine 04/21/22 documented as of this encounter
--- OUTSIDE RECORDS SUMMARY | 2024-06-06 13:35 | XMS_ITS | Encounter Summary ---
Author Organization [facility] Address [address] [place] [address] Care Team Providers Care Gear Hobber Set Up Operator Name Role Phone Louisa Machuca MD Primary Care Provider Unavailable Ruddy Cruz MD Primary Care Provider Unavail able Robinson Howe MD Primary Care Provider [phone] Jesus Monterroso MD Primary Care Provider Abram Flores MD Primary Care Provider Unavailab Michael Duvall MD Primary Care Provider Mariaelenavagabriel nguyen [facility], Pcp Primary Care Provider UnavailNapoleon White Primary Care Provider [phone] [facility] Pcp Primary Care Provider Unavailguido grace Encounter Details Date Type Department Care Team Description 11/20/2013 Orders Only Podiatry - [address] [address] Devan Durbin DPM Social History Tobacco Use [...] on filedocumented in this encounter Care Teams Gear Hobber Set Up Operator Relationship Specialty Start Date End Date Louisa Machuca MD PCP - General Internal Medicine 07/17/13 Ruddy Cruz MD PCP - General Internal Medicine 12/19/13 11/02/14 Robinson Howe MD [address] [place] [address] PCP - General Internal Medicine 11/03/14 04/13/20 Jesus Monterroso MD [address] [place] [address] PCP - General Internal Medicine 04/14/20 07/05/20 Abram Gardner MD [address] [place], [place] [phone] PCP - General Internal Medicine 07/06/20 12/24/20 Michael Gillette MD [address] [place] [address] PCP - General Internal Medicine 12/25/20 06/28/21 [facility], Pcp [address] [place] [address] PCP - General Internal Medicine 06/29/21 11/14/21 Napoleon Linda [address] [place] [address] PCP - General Internal Medicine 11/15/21 04/20/22 [facility], Pcp [address] [place] [address] PCP - General Internal Medicine 04/21/22 documented as of this encounter
--- OUTSIDE RECORDS SUMMARY | 2024-06-06 13:35 | XMS_ITS | Encounter Summary ---
Author Organization [facility] Address [address] [place] [address] Care Team Providers Care Customs Patrol Officer Name Role Phone Robinson Howe MD Primary Care Provider [phone] Jesus Monterroso MD Primary Care Provider Abram Flores MD Primary Care Provider Unavailab Michael Duvall MD Primary Care Provider Unavagabriel nguyen [facility], Pcp Primary Care Provider Unavailabl e Napoleon Linda Primary Care Provider [phone] [facility], Pcp Primary Care Provider Unavailabl e Reason for Referral * Non JERED (Routine) - Authorized/Booked Specialty Diagnoses / Procedures Referred By Contjericho t Referred To Contact Pulmonology Procedures REFERRAL TO PULMONOLOGY Terrence Corral MD [address] [facility] [address] [place] [address] Pulmo/[place] 175 [address] [facility] [address] [place] [address] Referral ID Status Reason Start Date Expiration Date V isits Requested Visits Authorized [id number] Authorized/B ooked 02/09/2018 02/09/2019 1 1 Encounter Details Date Type Department Care Team Description 02/09/2018 Telephone Pulmonology [address] [place], [place] [id number] Terrence Corral MD [address] [facility] [address] [place] [address] Social History Tobacco Use Types [...] 1:06 PM EST ----- Message from EVE Nemwan sent at 02/08/2018 7:50 PM EST ----- Dr Hardin Mild sleep apnea. Please have innovation analyst arrange ALISA appt with Mumtaz or me. documented in this encounter Plan of Treatment Not on file documented as of this encounter Visit Diagnoses Not on filedocumented in this encounter Care Teams Customs Patrol Officer Relationship Specialty Start Date End Date Robinson Howe MD [address] [place] [address] PCP - General Internal Medicine 11/03/14 04/13/20 Jesus Monterroso MD [address] [place] [address] PCP - General Internal Medicine 04/14/20 07/05/20 Abram Gardner MD [address] [place] [address] PCP - General Internal Medicine 07/06/20 12/24/20 Michael Gillette MD [address] [place] [address] PCP - General Internal Medicine 12/25/20 06/28/21 [facility], Pcp [address] [place] [address] PCP - General Internal Medicine 06/29/21 11/14/21 Napoleon Linda [address] [place] [address] PCP - General Internal Medicine 11/15/21 04/20/22 [facility], Pcp [address] [place] [address] PCP - General Internal Medicine 04/21/22 documented as of this encounter
--- OUTSIDE RECORDS SUMMARY | 2024-06-06 13:35 | XMS_ITS | Encounter Summary ---
Author Organization [facility] Address [address] [place] [address] Care Team Providers Care Worm Packer Name Role Phone Robinson Howe MD Primary Care Provider [phone] Jesus Monterroso MD Primary Care Provider Abram Flores MD Primary Care Provider Michael Hinojosa MD Primary Care Provider Driss nguyen [facility], Pcp Primary Care Provider Napoleon Mejia Primary Care Provider [phone] [facility], Pcp Primary Care Provider Maria T grace Encounter Details Date Type Department Care Team Description 07/12/2018 Orders Only [facility] [address] [place] [address] Social History Tobacco Use Types [...] on filedocumented in this encounter Care Teams Worm Packer Relationship Specialty Start Date End Date Robinson Howe MD [address] [place] [address] PCP - General Internal Medicine 11/03/14 04/13/20 Jesus Monterroso MD [address] [place] [address] PCP - General Internal Medicine 04/14/20 07/05/20 Abram Gardner MD [address] [place] [address] PCP - General Internal Medicine 07/06/20 12/24/20 Michael Gillette MD [address] [place] [address] PCP - General Internal Medicine 12/25/20 06/28/21 [facility], Pcp [address] [place], [place] [phone] PCP - General Internal Medicine 06/29/21 11/14/21 Napoleon Linda [address] [place] [address] PCP - General Internal Medicine 11/15/21 04/20/22 [facility], Pcp [address] [place] [address] PCP - General Internal Medicine 04/21/22 documented as of this encounter
--- OUTSIDE RECORDS SUMMARY | 2024-06-06 13:35 | XMS_ITS | Encounter Summary ---
Author Organization [facility] Address [address] [place] [address] Care Team Providers Care Still Operator Name Role Phone Abram Gardner MD Primary Care Provider Michael Hinojosa MD [facility] Primary Care Provider Napoleon Mejia Primary Care Provider [phone] [facility], Pcp Primary Care Provider Maria T grace Encounter Details Date Type Department Care Team Description 08/05/2020 Telephone Adult Medicine [address] [address] Abram Gardner MD Social History Tobacco Use [...] on filedocumented in this encounter Care Teams Still Operator Relationship Specialty Start Date End Date Abram Gardner MD PCP - General Internal Medicine 07/06/20 12/24/20 Michael Gillette MD PCP - General Internal Medicine 12/25/20 06/28/21 [facility], Pcp PCP - General Internal Medicine 06/29/21 11/14/21 Napoleon Linda [address] [place] [address] PCP - General Internal Medicine 11/15/21 04/20/22 [facility]cp PCP - General Internal Medicine 04/21/22 documented as of this encounter
== END 2024-06-06 11:24 | disposition home or self-care (01) ==
LOC: HO.HGS 11:04
PROVIDERS: PCP Internal Medicine; Visit Provider Surgery
DX: I87.8 Other specified disorders of veins (principal); R92.8 Other abnormal and inconclusive findings on diagnostic imaging of breast
CPT/HCPCS: 99213

== ENCOUNTER → 2024-06-06 11:03 | Outpatient (BNVA) | payer OTHER, SELFPAY | PROVIDERS: PCP Internal Medicine; Visit Provider Surgery | DX: I87.8 Other specified disorders of veins (principal); R92.8 Other abnormal and inconclusive findings on diagnostic imaging of breast | CPT/HCPCS: 99212 ==

== ENCOUNTER 2024-06-20 14:20 | Outpatient (AMB) | payer OTHER, SELFPAY ==
--- NOTE | 2024-06-20 14:28 | MHC.OFFVIS ---
Intake Visit Reasons: Right greater than left lower extremity pain Intake Note: Patient presents for lower extremity pain. She says she has screws in her right leg after a fall in 1996. She states her legs are painful, they cramp and fall asleep. Accompanied by: Daughter Allergies regadenoson [From Lexiscan] Adverse Reaction (Intermediate, Verified 06/20/24 14:33) Chest Pain HPI HPI Right greater than left lower extremity pain: Details: The patient is a 74-year-old female presenting with leg numbness and cramping. She reports more significant symptoms in the morning with numbness and cramping that persists throughout the day. The numbness affects her ability to feel her legs, particularly in the mornings. The patient denies any history of smoking but admits to having diabetes, which is currently well controlled. She underwent surgery at [facility] two years ago, regarding a right lower extremity bunion. She was actually seen treated by our General surgery team. She had been experiencing lower extremity pain. She has had prior orthopedic surgery as well including the right knee. She now presents to us for vascular evaluation. Of note the patient has been a longstanding diabetic for over 25 years and is a nonsmoker. She is being maintained on an aspirin and statin. [facility] Medical History Elevated cholesterol HTN (hypertension) Type 2 diabetes mellitus Cognitive dysfunction GERD (gastroesophageal reflux disease) Osteopenia Hypothyroid Chronic cough History of neuropathy Chronic ankle pain Non-rheumatic aortic stenosis Pleuritic chest pain Chronic allergic rhinitis Hypothyroidism Asthma-COPD overlap syndrome ALISA (obstructive sleep apnea) Asthma Surgical History History of esophagogastroduodenoscopy (EGD) History of colonoscopy with polypectomy (04/16/24) Hx of cystoscopy History of colonoscopy (~03/12/20) History of surgery on lower extremity History of back surgery History of thyroid surgery Family History Father Diabetes HTN (hypertension) Heart disease Mother Diabetes HTN (hypertension) Other Asthma Social History Household Members: None Housing: Apartment Alcohol intake: former Patient Tobacco Use Status: Former Tobacco user Tobacco use type: Cigarette Years Smoked: 10 years e-Cigarette/Vaping Use: Never Used Second Hand Smoke Exposure: Yes service: No Current occupational status: disabled Current occupational exposures/hazards: No Cognitive needs: Yes (cane) Hearing needs: No Vision needs: Yes Female Reproductive History Menstrual Age of Menarche: 12 Review of Systems Const All systems reviewed & are unremarkable except as noted in HPI and below Reports no additional complaints ENT Reports Normal hearing present Card Denies chest pain, Denies chest pain at rest, Denies chest pain with activity and Denies pedal edema Resp Denies cough GI Denies abdominal pain Musc Denies abnormal gait, Denies muscle cramps and Denies radiating pain into limb Skin/Breast Denies skin ulcer and Denies wounds Neuro Reports Normal hearing present and Denies abnormal gait Psych Reports no additional complaints Physical Exam Const General: cooperative, healthy appearing and comfortable Orientation/consciousness: oriented to person, oriented to place and oriented to time HEENT Head: Yes normal to inspection Neck Neck: Yes normal visual inspection Carotids: no bruits Chest Chest palpation & inspection: normal inspection of the chest Resp Effort & Inspection: normal respiratory effort and able to speak in complete sentences Auscultation: clear to auscultation bilaterally, no crackles, no rales, no rhonchi and no wheezes Cardio Other: Diminished arterial pulses Rate: regular rate Rhythm: regular rhythm Heart sounds: S1 normal heart sound present and S2 normal heart sound present Bruits: no carotid bruits Peripheral pulses: Peripheral pulses 2+ throughout GI Inspection: Yes normal to inspection Skin Wounds: no wounds Hair: normal Neuro General: oriented to person, oriented to place and oriented to time Cranial nerves: Yes CN's II-XII intact bilaterally and Yes Normal hearing present Cognition (Neuro): normal cognition Motor exam (neuro): 5/5 motor strength present throughout Extrem Other: venous exam: No significant superficial varicosities or spider telangiectasias, minimal edema General: No clubbing, No cyanosis and No edema Psych Appearance: grossly normal Mental Status: mental status grossly normal Speech and movement: Normal speech and movement present Results Reviewed Results Reviewed: Brief summary of venous insufficiency testing is as follows: right great saphenous vein: Focally positive at knee but vein small in caliber right small saphenous vein: negative right accessory vein: none present left great saphenous vein: negative left small saphenous vein: negative left accessory vein: none present Please note there is no evidence of any venous aneurysms or significant tortuosity Assessment & Plan Assessment & Plan (1) Varicose veins of right lower extremity with inflammation: Code(s): I83.11 - Varicose veins of right lower extremity with inflammation Category: Medical Plan: Unclear etiology of pain. It does not appear to be venous in nature as testing has shown to be negative. We will ensure that her arterial status is within normal limits. She may have an element of neuropathy due to longstanding history of diabetes. She will now present for follow-up after arterial testing. (2) PAD (peripheral artery disease): Code(s): I73.9 - Peripheral vascular disease, unspecified Category: Medical Plan: Patient may have an element of peripheral vascular disease. She does have diminished pulses but due to her longstanding history of diabetes we will rule that out. I have taken the liberty of ordering noninvasive arterial testing. Should that prove to be negative may benefit from a neurologic evaluation due to her longstanding history of diabetes and potential for neuropathy. Thank you for allowing us to assist in her care. If there are any questions or concerns please do not hesitate to contact us. Orders: Orders US arterial duplex LE BI 1 Week I73.9 - Peripheral vascular disease, unspecified Coding Level of Care Code New Pt Level 4 (87327) Complex EM visit Add On G2211 Diagnoses Varicose veins of right lower extremity with inflammation I83.11 PAD (peripheral artery disease) I73.9
--- OUTSIDE RECORDS SUMMARY | 2024-06-20 16:27 | XMS_ITS | Encounter Summary ---
Author Organization [facility] Address [address] [place] [address] Care Team Providers Care Trauma Counsellor Name Role Phone Robinson Howe MD Primary Care Provider [phone] Jesus Monterroso MD Primary Care Provider Abram Flores MD Primary Care Provider Michael Hinojosa MD Primary Care Provider Driss nguyen [facility], Pcp Primary Care Provider Napoleon Mejia Primary Care Provider [phone] [facility], Pcp Primary Care Provider Maria T grace Encounter Details Date Type Department Care Team Description 11/28/2017 Release of Information Medical Records [address] [place] [id number] Abstract, Provider Social History Tobacco Use Types [...] on filedocumented in this encounter Care Teams Trauma Counsellor Relationship Specialty Start Date End Date Robinson Howe MD [address] [place] [address] PCP - General Internal Medicine 11/03/14 04/13/20 Jesus Monterroso MD [address] [place] [address] PCP - General Internal Medicine 04/14/20 07/05/20 Abram Gardner MD [address] [place] [address] PCP - General Internal Medicine 07/06/20 12/24/20 Michael Gillette MD [address] [place] [address] PCP - General Internal Medicine 12/25/20 06/28/21 [facility], Pcp [address] [place], [place] [phone] PCP - General Internal Medicine 06/29/21 11/14/21 Napoleon Linda [address] [place] [address] PCP - General Internal Medicine 11/15/21 04/20/22 [facility], Pcp [address] [place] [address] PCP - General Internal Medicine 04/21/22 documented as of this encounter
--- OUTSIDE RECORDS SUMMARY | 2024-06-20 16:27 | XMS_ITS | Encounter Summary ---
Author Organization [employer] Address [address] [place] [address] [address]t [place] [address] Care Team Providers Care Application Systems Engineer Name Role Phone Unavailable Primary Care Provider Unavailabl e Encounter Details Date Type Department Care Team (Latest Contact Info) Description 12/24/[address] [facility] CONVERSIONS Dental, Provider, DDS Social History [...] 3:00 PM EDT Office Visit [facility] ADULT DENTAL [address] [place] [address] Delaney, Madeline [address] [place] [address] documented as of this encounter Visit Diagnoses Not on filedocumented in this encounter
--- OUTSIDE RECORDS SUMMARY | 2024-06-20 16:27 | XMS_ITS | Encounter Summary ---
Author Organization [facility] Address [address] [place] [address] Care Team Providers Care Receiving Supervisor Name Role Phone Michael Gillette MD Primary Care Provider Driss nguyen [facility], Pcp Primary Care Provider Napoleon Mejia Primary Care Provider [phone] [facility], Pcp Primary Care Provider Maria T grace Encounter Details Date Type Department Care Team Description 01/26/2021 [employer] Report Medical Records [address] [place] [address] Osmar Ayala MD Social History Tobacco Use [...] on filedocumented in this encounter Care Teams Receiving Supervisor Relationship Specialty Start Date End Date Michael Gillette MD PCP - General Internal Medicine 12/25/20 06/28/21 [facility], Pcp PCP - General Internal Medicine 06/29/21 11/14/21 Napoleon Linda [address] [place] [address] PCP - General Internal Medicine 11/15/21 04/20/22 [facility], [facility]cp PCP - General Internal Medicine 04/21/22 documented as of this encounter
--- OUTSIDE RECORDS SUMMARY | 2024-06-20 16:27 | XMS_ITS | Encounter Summary ---
Author Organization [facility] Address [address] [place] [address] Care Team Providers Care C.O.D. Clerk Name Role Phone Robinson Howe MD Primary Care Provider [phone] Jesus Monterroso MD Primary Care Provider Abram Flores MD Primary Care Provider UnavailMichael Elmore MD Primary Care Provider Driss nguyen [facility], Pcp Primary Care Provider UnavailNapoleon [place] Primary Care Provider [phone] [facility], Pcp Primary Care Provider Unavailguido e Encounter Details Date Type Department Care Team Description 11/11/2019 Telephone Adult Medicine [address] [id number] Robinson Howe MD [address] [place] [address] [phone] Social History Tobacco Use Types Packs/Day Years [...] on filedocumented in this encounter Care Teams C.O.D. Clerk Relationship Specialty Start Date End Date Robinson Howe MD [address] [place] [address] PCP - General Internal Medicine 11/03/14 04/13/20 Jesus Monterroso MD [address] [place] [address] PCP - General Internal Medicine 04/14/20 07/05/20 Abram Gardner MD [address] [place] [address] PCP - General Internal Medicine 07/06/20 12/24/20 Michael Gillette MD [address] [place] [address] PCP - General Internal Medicine 12/25/20 06/28/21 [facility], Pcp [address] [place] [address] PCP - General Internal Medicine 06/29/21 11/14/21 Napoleon Linda [address] [place] [address] PCP - General Internal Medicine 11/15/21 04/20/22 [facility], Pcp [address] [place], [place] [phone] PCP - General Internal Medicine 04/21/22 documented as of this encounter
--- OUTSIDE RECORDS SUMMARY | 2024-06-20 16:27 | XMS_ITS | Encounter Summary ---
Author Organization [employer] Address [address] [place] [address] 7t [place] [address] Care Team Providers Care Celery Tier Name Role Phone Unavailable Primary Care Provider Unavailabl e Encounter Details Date Type Department Care Team (Latest Contact Info) Description 10/03/2018 Abstract [facility] CONVERSIONS Dental, Provider, DDS Social History [...] [facility] [address] [place] [address] Delaney, Madeline [address] [place] [address] documented as of this encounter Visit Diagnoses Not on filedocumented in this encounter
--- OUTSIDE RECORDS SUMMARY | 2024-06-20 16:27 | XMS_ITS | Encounter Summary ---
Author Organization [facility] Address [address] [place] [address] Care Team Providers Care Lead Data Entry Operator Name Role Phone Robinson Howe MD Primary Care Provider [phone] Jesus Monterroso MD Primary Care Provider Abram Flores MD Primary Care Provider UnavailMichael Elmore MD Primary Care Provider Driss gnuyen [facility], Pcp Primary Care Provider UnavailNapoleon [place] Primary Care Provider [phone] [facility], Pcp Primary Care Provider Maria T grace Encounter Details Date Type Department Care Team Description 12/02/2019 Orders Only Adult Medicine [address] [address] Jordan Soto, DAINA Cough (Primary Dx) Social [...] Primary documented in this encounter Care Teams Lead Data Entry Operator Relationship Specialty Start Date End Date Robinson Howe MD [address] [place] [address] PCP - General Internal Medicine 11/03/14 04/13/20 Jesus Monterroso MD [address] [place] [address] PCP - General Internal Medicine 04/14/20 07/05/20 Abram Gardner MD [address] [place] [address] PCP - General Internal Medicine 07/06/20 12/24/20 Michael Gillette MD [address] [place] [address] PCP - General Internal Medicine 12/25/20 06/28/21 [facility], Pcp [address] [place] [address] PCP - General Internal Medicine 06/29/21 11/14/21 Napoleon Linda [address] [place] [address] PCP - General Internal Medicine 11/15/21 04/20/22 [facility], Pcp [address] [place] [address] PCP - General Internal Medicine 04/21/22 documented as of this encounter
--- OUTSIDE RECORDS SUMMARY | 2024-06-20 16:27 | XMS_ITS | Encounter Summary ---
Author Organization [employer] Address [address] [place] [address] [address] [place] [address] Care Team Providers Care Head Machinist Name Role Phone Unavailable Primary Care Provider Unavailabl e Encounter Details Date Type Department Care Team (Latest Contact Info) Description 04/05/2018 Abstract [facility] CONVERSIONS Dental, Provider, DDS Social [...] Description 09/13/2024 3:00 PM EDT Office Visit [facility] ADULT DENTAL [address] [place] [address] Delaney, Madeline [address] [place] [address] documented as of this encounter Visit Diagnoses Not on filedocumented in this encounter
--- OUTSIDE RECORDS SUMMARY | 2024-06-20 16:27 | XMS_ITS | Encounter Summary ---
Author Organization [employer] Address [address] [place] [address] [address] [place] [address] Care Team Providers Care Spot Machine Operator Name Role Phone Unavailable Primary Care Provider Unavailabl e Encounter Details Date Type Department Care Team (Latest Contact Info) Description 12/24/2021 Abstract [facility] CONVERSIONS Dental, Provider, DDS Social [...] 09/13/2024 3:00 PM EDT Office Visit [facility] ADULT DENTAL [address] [place] [address] Delaney, Madeline [address] [place] [address] documented as of this encounter Visit Diagnoses Not on filedocumented in this encounter
--- OUTSIDE RECORDS SUMMARY | 2024-06-20 16:27 | XMS_ITS | Encounter Summary ---
Author Organization [facility] Address [address] [place] [address] Care Team Providers Care Psychology Instructor Name Role Phone Robinson Howe MD Primary Care Provider [phone] Jesus Monterroso MD Primary Care Provider Abram Flores MD Primary Care Provider Michael Hinojosa MD Primary Care Provider Driss nguyen [facility], Pcp Primary Care Provider Napoleon Mejia Primary Care Provider [phone] [facility], Pcp Primary Care Provider Maria T grace Encounter Details Date Type Department Care Team Description 02/20/2020 [facility] Medical Records [address] [place] [id number] Abstract, Provider Social History Tobacco Use Types [...] on filedocumented in this encounter Care Teams Psychology Instructor Relationship Specialty Start Date End Date Robinson Howe MD [address] [place] [address] PCP - General Internal Medicine 11/03/14 04/13/20 Jesus Monterroso MD [address] [place] [address] PCP - General Internal Medicine 04/14/20 07/05/20 Abram Gardner MD [address] [place] [address] PCP - General Internal Medicine 07/06/20 12/24/20 Michael Gillette MD [address] [place] [address] PCP - General Internal Medicine 12/25/20 06/28/21 [facility], Pcp [address] [place], [place] [phone] PCP - General Internal Medicine 06/29/21 11/14/21 Napoleon Linda [address] [place] [address] PCP - General Internal Medicine 11/15/21 04/20/22 [facility], Pcp [address] [place] [address] PCP - General Internal Medicine 04/21/22 documented as of this encounter
--- OUTSIDE RECORDS SUMMARY | 2024-06-20 16:27 | XMS_ITS | Encounter Summary ---
Author Organization [employer] Address [address] [place] [address] [address] [place] [address] Care Team Providers Care Quality Control Microbiology Supervisor Name Role Phone Unavailable Primary Care Provider Unavailabl e Reason for Visit * Reason Onset Date Comments Durable Medical Equipment 01/18/2023 Encounter Details Date Type Department Care Team ([facility] st Contact Info) Description 01/18/2023 Telephone [facility] MEDICINE [address] [place] [address] Jesus Wiseman MD [address] [place], [place] [phone] Durable Medical Equipment Social History Tobacco Use [...] Tc from Susana working with [facility] requesting the following. Pull ups size Medium 4 per day, Wipes 4 per month, Disposable bed pads 2 per day, and she [id number] refills for all the supply's. Any questions please contact Susana at [phone] ext [phone] FYI after further inspection this pt does not seem active. documented in this encounter Plan of Treatment Upcoming Encounters Date Type Department Care Team (Late st Contact Info) Description 09/13/2024 3:00 PM EDT Office Visit [facility] ADULT DENTAL [address] [place] [address] Madeline Baltazar [address] [place] [address] documented as of this encounter Visit Diagnoses Not on filedocumented in this encounter
--- OUTSIDE RECORDS SUMMARY | 2024-06-20 16:27 | XMS_ITS | Encounter Summary ---
Author Organization [employer] Address [address] [place] [address] 7t [place] [address] Care Team Providers Care Inductor Tester Name Role Phone Unavailable Primary Care Provider Unavailabl e Encounter Details Date Type Department Care Team (Late st Contact Info) Description 01/26/2022 Abstract [facility] ADULT DENTAL [address] [place] [address] Dental, Provider, DDS Social History Tobacco Use [...] 3:00 PM EDT Office Visit [facility] ADULT DENTAL [address] [place], [place] [phone] Douglas Baltazararis [address] [place], [place] [phone] documented as of this encounter Procedures Procedure [...]
--- OUTSIDE RECORDS SUMMARY | 2024-06-20 16:27 | XMS_ITS | Encounter Summary ---
Author Organization [facility] Address [address] [place] [address] Care Team Providers Care Sales Department Manager Name Role Phone Michael Gillette MD Primary Care Provider Driss nguyen [facility], Pcp Primary Care Provider Napoleon Mejia Primary Care Provider [phone] [facility], Pcp Primary Care Provider Unavailabl e Reason for Visit * Reason Comments E-prescribe Rx Request Encounter Details Date Type Department Care Team Description 03/28/2021 Refill Adult Medicine [address] [address] Abram Gardner MD E-prescribe Rx Request Social [...] ?? Patients current insurance carrier is: Payor: [facility] M[facility] / Plan: O $0 [facility] [id number] / Product Type: HMO [id number] ?? documented in this encounter Plan of Treatment Not on file documented as of this encounter Visit Diagnoses Diagnosis Type 2 diabetes mellitus with diabetic neuropathy, with long-term current use of insulin (HCC) Essential hypertension Unspecified essential hypertension Other specified hypothyroidism Gastroesophageal reflux disease without esophagitis Esophageal reflux Need for prophylactic vaccination and inoculation against influenza documented in this encounter Care Teams Sales Department Manager Relationship Specialty Start Date End Date Michael Gillette MD PCP - General Internal Medicine 12/25/20 06/28/21 [facility] Pcp PCP - General Internal Medicine 06/29/21 11/14/21 Napoleon Linda [address] [place] [address] PCP - General Internal Medicine 11/15/21 04/20/22 [facility] Pcp PCP - General Internal Medicine 04/21/22 documented as of this encounter
--- OUTSIDE RECORDS SUMMARY | 2024-06-20 16:28 | XMS_ITS | Encounter Summary ---
Author Organization [facility] Address [address] [place] [address] Care Team Providers Care Social Science Manager Name Role Phone Robinson Howe MD Primary Care Provider [phone] Jesus Monterroso MD Primary Care Provider Abram Flores MD Primary Care Provider Unavailab Michael Duvall MD Primary Care Provider Driss nguyen [facility], Pcp Primary Care Provider Unavailabl e Napoleon Linda Primary Care Provider [phone] [facility] Primary Care Provider Unavailabl e Reason for Visit * Reason Onset Date Comments Medication 10/23/2019 colon Encounter Details Date Type Department Care Team Description 10/23/2019 Refill Gastroenterology [address] [address] Trenton Pierce MD Medication (colon) [...] on filedocumented in this encounter Care Teams Social Science Manager Relationship Specialty Start Date End Date Robinson Howe MD [address] [place] [address] PCP - General Internal Medicine 11/03/14 04/13/20 Jesus Monterroso MD [address] [place] [address] PCP - General Internal Medicine 04/14/20 07/05/20 Abram Gardner MD [address] [place] [address] PCP - General Internal Medicine 07/06/20 12/24/20 Michael Gillette MD [address] [place] [address] PCP - General Internal Medicine 12/25/20 06/28/21 [facility], Pcp [address] [place] [address] PCP - General Internal Medicine 06/29/21 11/14/21 Napoleon Linda [address] [place], [place] [phone] PCP - General Internal Medicine 11/15/21 04/20/22 [facility], Pcp [address] [place], [place] [phone] PCP - General Internal Medicine 04/21/22 documented as of this encounter
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
--- OUTSIDE RECORDS SUMMARY | 2024-06-20 16:28 | XMS_ITS | Encounter Summary ---
Author Organization [facility] Address [address] [place] [address] Care Team Providers Care Obstetrician Gynecologist Name Role Phone Louisa Machuca MD Primary Care Provider Unavailable Ruddy Cruz MD Primary Care Provider Unavail able Robinson Howe MD Primary Care Provider + [phone] Jesus Monterroso MD Primary Care Provider Abram Flores MD Primary Care Provider Unavailab Michael Duvall MD Primary Care Provider Driss nguyen [facility], Pcp Primary Care Provider UnavailNapoleon White Primary Care Provider [phone] [facility], Pcp Primary Care Provider Maria T grace Encounter Details Date Type Department Care Team Description 12/18/2013 Business Doc Medical Records [address] [place] [address] Abstract, Provider Social History Tobacco Use Types [...] on filedocumented in this encounter Care Teams Obstetrician Gynecologist Relationship Specialty Start Date End Date Louisa Machuca MD PCP - General Internal Medicine 07/17/13 Ruddy Cruz MD PCP - General Internal Medicine 12/19/13 11/02/14 Robinson Howe MD [address] [place] [address] PCP - General Internal Medicine 11/03/14 04/13/20 Jesus Monterroso MD [address] [place] [address] PCP - General Internal Medicine 04/14/20 07/05/20 Abram Gardner MD [address] [place] [address] PCP - General Internal Medicine 07/06/20 12/24/20 Michael Gillette MD [address] [place] [address] PCP - General Internal Medicine 12/25/20 06/28/21 [facility], Pcp [address] [place] [address] PCP - General Internal Medicine 06/29/21 11/14/21 Napoleon Linda [address] [place] [address] PCP - General Internal Medicine 11/15/21 04/20/22 [facility], Pcp [address] [place] [address] PCP - General Internal Medicine 04/21/22 documented as of this encounter
--- OUTSIDE RECORDS SUMMARY | 2024-06-20 16:28 | XMS_ITS | Clinical Summary ---
Author Organization [facility] Address [address] [place] [address] 7[address] [place] [address] Care Team Providers Care Air Defense Artillery Senior Sergeant Name Role Phone Unavailable Primary Care Provider [...] Missing teeth, acquired 09/12/2023 Periodontal disease 01/28/2022 Immunizations Name Administration Dates Next Due INFLUENZA [...] 09/13/2024 3:00 PM EDT Office Visit [facility] [address] [place] [address] Delaney, Madeline [address] [place] [address] Health Maintenance Due Date Last Done Comments Depression Screening 1948 Lipid Panel 1948 SDOH Screening 1948 Alcohol/Substance Use Screening 1960 Hepatitis C Screening 1966 Zoster Vaccines (1 of 2) 1998 DTaP/Tdap/Td Vaccines (1 - Tdap) 04/09/2022 04/08/2022 RSV Patients and Patients Aged 60 years or older (1 - 1-dose 75+ series) 2023 COVID-19 Vaccine ( - 2023- season) 2023 02/03/2023, 03/03/2022, 02/24/2021, Additional history [...] Procedure Name Priority Date/Time Associated Diagnosis Comments PROPHYLAXIS - ADULT Routine 03/15/2024 1 0:00 AM EST Dental plaque BITEWINGS - 4 RADIOGRAPHIC IMAGES Routine 09/12/2023 3:00 PM EDT Periodontal disease Dental calculus Localized gingival recession Missing teeth, acquired PERIODIC ORAL EVALUATION - ESTABLISHED PATIENT Routine 09/12/2023 3:00 PM EDT from Last 3 Months or Most Recently Relevant to Health Maintenance Insurance DENTAL [facility] DETENTION OPTIONS (O D-SNP) DENTAL - [facility] [place] [address]
--- OUTSIDE RECORDS SUMMARY | 2024-06-20 16:28 | XMS_ITS | Encounter Summary ---
Author Organization [facility] Address [address] [place] [address] Care Team Providers Care Carry Out Clerk Name Role Phone Robinson Howe MD Primary Care Provider [phone] Jesus Monterroso MD Primary Care Provider Abram Flores MD Primary Care Provider Unavailab Michael Duvall MD Primary Care Provider Driss nguyen [facility], Pcp Primary Care Provider Unavailabl Napoleon Ramirez Primary Care Provider [phone] [facility], Pcp Primary Care Provider Unavailabl e Reason for Visit * Reason Comments E-prescribe Rx Request Encounter Details Date Type Department Care Team Description 03/15/2017 Refill Adult Medicine [address] [address] Jerod Daniel PA-C [address] [place] [address] [id number] E-prescribe Rx Request Social History Tobacco Use [...] / Plan: [place] / Product Type: MEDICARE [id number] documented in this encounter Plan of Treatment [...] exacerbation documented in this encounter Care Teams Carry Out Clerk Relationship Specialty Start Date End Date Robinson Howe MD [address] [place] [address] PCP - General Internal Medicine 11/03/14 04/13/20 Jesus Monterroso MD [address] [place] [address] PCP - General Internal Medicine 04/14/20 07/05/20 Abram Gardner MD [address] [place] [address] PCP - General Internal Medicine 07/06/20 12/24/20 Michael Gillette MD [address] [place] [address] PCP - General Internal Medicine 12/25/20 06/28/21 [facility], Pcp [address] [place], [place] [phone] PCP - General Internal Medicine 06/29/21 11/14/21 Napoleon Linda [address] [place] [address] PCP - General Internal Medicine 11/15/21 04/20/22 [facility], Pcp [address] [place] [address] PCP - General Internal Medicine 04/21/22 documented as of this encounter
--- OUTSIDE RECORDS SUMMARY | 2024-06-20 16:28 | XMS_ITS | Encounter Summary ---
Author Organization [facility] Address [address] [place] [address] Care Team Providers Care Pool Coordinator Name Role Phone Robinson Howe MD Primary Care Provider [phone] Jesus Monterroso MD Primary Care Provider Abram Flores MD Primary Care Provider Unavailab Michael Duvall MD Primary Care Provider Driss nguyen [facility], Pcp Primary Care Provider Unavailabl Napoleon Ramirez Primary Care Provider [phone] [facility], Pcp Primary Care Provider Unavailabl e Reason for Visit * Reason Comments E-prescribe Rx Request Encounter Details Date Type Department Care Team Description 02/09/2017 Refill Adult Medicine [address] [phone] Robinson Howe MD [address] [place] [phone] E-prescribe Rx Request Social History Tobacco Use [...] / Plan: [place] / Product Type: MEDICARE [id number] documented in this encounter Plan of Treatment [...] limb documented in this encounter Care Teams Pool Coordinator Relationship Specialty Start Date End Date Robinson Howe MD [address] [place] [address] PCP - General Internal Medicine 11/03/14 04/13/20 Jesus Monterroso MD [address] [place] [address] PCP - General Internal Medicine 04/14/20 07/05/20 Abram Gardner MD [address] [place] [address] PCP - General Internal Medicine 07/06/20 12/24/20 Michael Gillette MD [address] [place] [address] PCP - General Internal Medicine 12/25/20 06/28/21 [facility], Pcp [address] [place] [address] PCP - General Internal Medicine 06/29/21 11/14/21 Napoleon Linda [address] [place] [address] PCP - General Internal Medicine 11/15/21 04/20/22 [facility], Pcp [address] [place] [address] PCP - General Internal Medicine 04/21/22 documented as of this encounter
--- OUTSIDE RECORDS SUMMARY | 2024-06-20 16:28 | XMS_ITS | Encounter Summary ---
Author Organization [facility] Address [address] [place] [address] Care Team Providers Care Truck Washer Name Role Phone Louisa Machuca MD Primary Care Provider Unavailable Ruddy rCuz MD Primary Care Provider Unavail able Robinson Howe MD Primary Care Provider [phone] Jesus Monterroso MD Primary Care Provider Abram Flores MD Primary Care Provider Unavailab Michael Duvall MD Primary Care Provider Mariaelenavagabriel nguyen [facility], Pcp Primary Care Provider UnavailNapoleon White Primary Care Provider [phone] [facility], Pcp Primary Care Provider Unavailguido grace Encounter Details Date Type Department Care Team Description 10/23/2013 Orders Only OBGYN - [address] [address] Kate Mai MD Social History Tobacco Use [...] filedocumented in this encounter Care Teams Truck Washer Relationship Specialty Start Date End Date Louisa Machuca MD PCP - General Internal Medicine 07/17/13 Ruddy Cruz MD PCP - General Internal Medicine 12/19/13 11/02/14 Robinson Howe MD [address] [place] [address] PCP - General Internal Medicine 11/03/14 04/13/20 Jesus Monterroso MD [address] [place] [address] PCP - General Internal Medicine 04/14/20 07/05/20 Abram Gardner MD [address] [place], [place] [phone] PCP - General Internal Medicine 07/06/20 12/24/20 Michael Gillette MD [address] [place] [address] PCP - General Internal Medicine 12/25/20 06/28/21 [facility], Pcp [address] [place] [address] PCP - General Internal Medicine 06/29/21 11/14/21 Napoleon Linda [address] [place] [address] PCP - General Internal Medicine 11/15/21 04/20/22 [facility], Pcp [address] [place] [address] PCP - General Internal Medicine 04/21/22 documented as of this encounter
--- OUTSIDE RECORDS SUMMARY | 2024-06-20 16:28 | XMS_ITS | Encounter Summary ---
Author Organization [facility] Address [address] [place] [address] Care Team Providers Care Assembler Sandal Parts Name Role Phone Abram Gardner MD Primary Care Provider Michael Hinojoas MD Primary Care Provider Driss nguyen [facility], Pcp Primary Care Provider Napoleon Mejia Primary Care Provider [phone] [facility] Pcp Primary Care Provider Unavailabl e Reason for Visit * Reason Comments E-prescribe Rx Request Encounter Details Date Type Department Care Team Description 10/27/2020 Refill Adult Medicine [address] [address] Jerod Daniel PA-C [address] [place] [address] E-prescribe Rx Request Social History Tobacco Use [...] N/A Patients current insurance carrier is: Payor: [facility] / Plan: O $0 [facility] [id number] / Product Type: HMO [id number] documented in this encounter Plan of Treatment [...] exacerbation documented in this encounter Care Teams Assembler Sandal [employer] Relationship Specialty Start Date End Date Abram Gardner MD PCP - General Internal Medicine 07/06/20 12/24/20 Michael Gillette MD PCP - General Internal Medicine 12/25/20 06/28/21 [facility]cp PCP - General Internal Medicine 06/29/21 11/14/21 Napoleon Linda [address] [place] [address] PCP - General Internal Medicine 11/15/21 04/20/22 [facility], Pcp PCP - General Internal Medicine 04/21/22 documented as of this encounter
--- OUTSIDE RECORDS SUMMARY | 2024-06-20 16:28 | XMS_ITS | Encounter Summary ---
Author Organization [facility] Address [address] [place] [address] Care Team Providers Care Dish Machine Operator Name Role Phone Robinson Howe MD Primary Care Provider [phone] Jesus Monterroso MD Primary Care Provider Abram Flores MD Primary Care Provider Unavailab Michael Duvall MD Primary Care Provider Driss nguyen [facility], Pcp Primary Care Provider Unavailabl e Napoleon Linda Primary Care Provider [phone] [facility], Pcp Primary Care Provider Unavailabl e Reason for Visit * Reason Onset Date Comments Prior Authorization 08/11/2016 Encounter Details Date Type Department Care Team Description 08/11/2016 Telephone Adult [address] [phone] Robinson Howe MD [address] [place] [address] [phone] Prior Authorization Social History Tobacco Use Types [...] Is this a Cover My Meds request: [place] of Medication Lidocaine Dose of Medication 5% patch How does patient take this med? Place one patch onto the skin for 12 hours a day What Pharmacy did the fax come from: [facility] fax #: not on fax Third Libertarian Information from fax: What Prescription Plan does the patient have? na BIN/PCN if applicable: not on fax Cardholder ID:[id number] Person Code: not on fax Relationship Code: not on fax Help desk phone: not on fax documented in this encounter Plan of Treatment Not on file documented as of this encounter Visit Diagnoses Not on filedocumented in this encounter Care Teams Dish Machine Operator Relationship Specialty Start Date End Date Robinson Howe MD [address] [place] [address] PCP - General Internal Medicine 11/03/14 04/13/20 Jesus Monterroso MD [address] [place], [place] [address] PCP - General Internal Medicine 04/14/20 07/05/20 Abram Gardner MD [address] [place] [address] PCP - General Internal Medicine 07/06/20 12/24/20 Michael Gillette MD [address] [place] [address] PCP - General Internal Medicine 12/25/20 06/28/21 [facility], Pcp [address] [place], [place] [address] PCP - General Internal Medicine 06/29/21 11/14/21 Napoleon Linda [address] [place] [address] PCP - General Internal Medicine 11/15/21 04/20/22 [facility], Pcp [address] [place] [address] PCP - General Internal Medicine 04/21/22 documented as of this encounter
--- OUTSIDE RECORDS SUMMARY | 2024-06-20 16:28 | XMS_ITS | Encounter Summary ---
Author Organization [facility] Address [address] [place] [address] Care Team Providers Care Digital Program Manager Name Role Phone Robinson Howe MD Primary Care Provider [phone] Jesus Monterroso MD Primary Care Provider Abram Flores MD Primary Care Provider Michael Hinojosa MD Primary Care Provider Driss nguyen [facility], Pcp Primary Care Provider Napoleon Mejia Primary Care Provider [phone] [facility], Pcp Primary Care Provider Maria T grace Encounter Details Date Type Department Care Team Description 07/12/2018 Orders Only Allergy [place] [address] [place] [address] Social History Tobacco Use Types [...] on filedocumented in this encounter Care Teams Digital Program Manager Relationship Specialty Start Date End Date Robinson Howe MD [address] [place] [address] PCP - General Internal Medicine 11/03/14 04/13/20 Jesus Monterroso MD [address] [place] [address] PCP - General Internal Medicine 04/14/20 07/05/20 Abram Gardner MD [address] [place] [address] PCP - General Internal Medicine 07/06/20 12/24/20 Michael Gillette MD [address] [place] [address] PCP - General Internal Medicine 12/25/20 06/28/21 [facility], Pcp [address] [place], [place] [address] PCP - General Internal Medicine 06/29/21 11/14/21 Napoleon Linda [address] [place] [address] PCP - General Internal Medicine 11/15/21 04/20/22 [facility], Pcp [address] [place] [address] PCP - General Internal Medicine 04/21/22 documented as of this encounter
--- OUTSIDE RECORDS SUMMARY | 2024-06-20 16:28 | XMS_ITS | Encounter Summary ---
Author Organization [facility] Address [address] [place] [address] Care Team Providers Care Brood Hatchery Manager Name Role Phone Louisa Machuca MD Primary Care Provider Unavailable Ruddy Cruz MD Primary Care Provider Unavail able Robinson Howe MD Primary Care Provider [phone] Jesus Monterroso MD Primary Care Provider Abram Flores MD Primary Care Provider Unavailab Michael Duvall MD Primary Care Provider Driss nguyen [facility], Pcp Primary Care Provider UnavailNapoleon White Primary Care Provider [phone] [facility], Pcp Primary Care Provider Maria T grace Encounter Details Date Type Department Care Team Description 09/12/2013 Business Doc Medical Records [address] [place] [address] Abstract, Provider Social History Tobacco Use Types [...] on filedocumented in this encounter Care Teams Brood Hatchery Manager Relationship Specialty Start Date End Date Louisa Machuca MD PCP - General Internal Medicine 07/17/13 Ruddy Cruz MD PCP - General Internal Medicine 12/19/13 11/02/14 Robinson Howe MD [address] [place] [address] PCP - General Internal Medicine 11/03/14 04/13/20 Jesus Monterroso MD [address] [place] [address] PCP - General Internal Medicine 04/14/20 07/05/20 Abram Gardner MD [address] [place] [address] PCP - General Internal Medicine 07/06/20 12/24/20 Michael Gillette MD [address] [place] [address] PCP - General Internal Medicine 12/25/20 06/28/21 [facility], Pcp [address] [place] [address] PCP - General Internal Medicine 06/29/21 11/14/21 Napoleon Linda [address] [place] [address] PCP - General Internal Medicine 11/15/21 04/20/22 [facility], Pcp [address] [place] [address] PCP - General Internal Medicine 04/21/22 documented as of this encounter
--- OUTSIDE RECORDS SUMMARY | 2024-06-20 16:28 | XMS_ITS | Encounter Summary ---
Author Organization [facility] Address [address] [place] [address] Care Team Providers Care Deputy Treasurer Name Role Phone Robinson Howe MD Primary Care Provider [phone] Jesus Monterroso MD Primary Care Provider Abram Flores MD Primary Care Provider Michael Hinojosa MD Primary Care Provider Driss nguyen [facility], Pcp Primary Care Provider Napoleon Mejia Primary Care Provider [phone] [facility], Pcp Primary Care Provider Maria T grace Encounter Details Date Type Department Care Team Description 11/07/2016 Business Doc Medical Records [address] [place] [address] Abstract, Provider Social History Tobacco Use Types [...] on filedocumented in this encounter Care Teams Deputy Treasurer Relationship Specialty Start Date End Date Robinson Howe MD [address] [place] [address] PCP - General Internal Medicine 11/03/14 04/13/20 Jesus Monterroso MD [address] [place] [address] PCP - General Internal Medicine 04/14/20 07/05/20 Abram Gardner MD [address] [place] [address] PCP - General Internal Medicine 07/06/20 12/24/20 Michael Gillette MD [address] [place] [address] PCP - General Internal Medicine 12/25/20 06/28/21 [facility], Pcp [address] [place], [place] [address] PCP - General Internal Medicine 06/29/21 11/14/21 Napoleon Linda [address] [place] [address] PCP - General Internal Medicine 11/15/21 04/20/22 [facility], Pcp [address] [place] [address] PCP - General Internal Medicine 04/21/22 documented as of this encounter
--- OUTSIDE RECORDS SUMMARY | 2024-06-20 16:28 | XMS_ITS | Encounter Summary ---
Author Organization [facility] Address [address] [place] [address] Care Team Providers Care Superintendent Drilling And Production Name Role Phone Abram Gardner MD Primary Care Provider Michael Hinojosa MD Primary Care Provider Driss nguyen [facility], Pcp Primary Care Provider Napoleon Mejia Primary Care Provider [phone] [facility], Pcp Primary Care Provider Maria T grace Encounter Details Date Type Department Care Team Description 08/05/2020 Refill Hypertension - [place] [address] [place] [address] Louisa Hart, Pharm.D Social History Tobacco Use [...] on filedocumented in this encounter Care Teams Superintendent Drilling And Production Relationship Specialty Start Date End Date Abram Gardner MD PCP - General Internal Medicine 07/06/20 12/24/20 Michael Gillette MD PCP - General Internal Medicine 12/25/20 06/28/21 [facility]cp PCP - General Internal Medicine 06/29/21 11/14/21 Napoleon Linda [address] [place] [address] PCP - General Internal Medicine 11/15/21 04/20/22 [facility] Pcp PCP - General Internal Medicine 04/21/22 documented as of this encounter
--- OUTSIDE RECORDS SUMMARY | 2024-06-20 16:28 | XMS_ITS | Encounter Summary ---
Author Organization [facility] Address [address] [place] [address] Care Team Providers Care Rim Technician Name Role Phone Ruddy Cruz MD Primary Care Provider Unavail able Robinson Howe MD Primary Care Provider + [phone] Jesus Monterroso MD Primary Care Provider Abram Flores MD Primary Care Provider Unavailab Michael Duvall MD Primary Care Provider Mariaelenavagabriel nguyen [facility], Pcp Primary Care Provider UnavailNapoleon White Primary Care Provider [phone] [facility], Pcp Primary Care Provider Unavailabl e Encounter Details Date Type Department Care Team Description 05/02/2014 Transfer Records Medical Records [address] [place] [id number] [place] [address] [phone] Social History Tobacco Use Types Packs/Day Years [...] on filedocumented in this encounter Care Teams Rim Technician Relationship Specialty Start Date End Date Ruddy Cruz MD PCP - General Internal Medicine 12/19/13 11/02/14 Robinson Howe MD [address] [place] [address] PCP - General Internal Medicine 11/03/14 04/13/20 Jesus Monterroso MD [address] [place] [address] PCP - General Internal Medicine 04/14/20 07/05/20 Abram Gardner MD [address] [place] [address] PCP - General Internal Medicine 07/06/20 12/24/20 Michael Gillette MD [address] [place] [address] PCP - General Internal Medicine 12/25/20 06/28/21 [facility], Pcp [address] [place] [address] PCP - General Internal Medicine 06/29/21 11/14/21 Napoleon Linda [address] [place] [address] PCP - General Internal Medicine 11/15/21 04/20/22 [facility], Pcp [address] [place] [address] PCP - General Internal Medicine 04/21/22 documented as of this encounter
--- OUTSIDE RECORDS SUMMARY | 2024-06-20 16:28 | XMS_ITS | Encounter Summary ---
Author Organization [facility] Address [address] [place] [address] Care Team Providers Care Head Of Digital Name Role Phone Robinson Howe MD Primary Care Provider + [phone] Jesus Monterroso MD Primary Care Provider Abram Flores MD Primary Care Provider Michael Hinojosa MD Primary Care Provider Driss nguyen [facility], Pcp Primary Care Provider Napoleon Mejia Primary Care Provider [phone] [facility], Pcp Primary Care Provider Maria T grace Encounter Details Date Type Department Care Team Description 03/04/2019 Dumping Machine Operator Report Medical Records [address] [place] [id number] Prudence Luna Social History Tobacco Use Types [...] in this encounter Care Teams Head Of Digital Relationship Specialty Start Date End Date Robinson Howe MD [address] [place] [address] [phone] PCP - General Internal Medicine 11/03/14 04/13/20 Jesus Monterroso MD [address] [place] [address] PCP - General Internal Medicine 04/14/20 07/05/20 Abram Gardner MD [address] [place] [address] PCP - General Internal Medicine 07/06/20 12/24/20 Michael Gillette MD [address] [place] [address] 290[address] PCP - General Internal Medicine 12/25/20 06/28/21 [facility], Pcp [address] [place], [place] [phone] PCP - General Internal Medicine 06/29/21 11/14/21 Napoleon Linda [address] [place] [address] PCP - General Internal Medicine 11/15/21 04/20/22 [facility], Pcp [address] [place] [address] PCP - General Internal Medicine 04/21/22 documented as of this encounter
--- OUTSIDE RECORDS SUMMARY | 2024-06-20 16:28 | XMS_ITS | Encounter Summary ---
Author Organization [facility] Address [address] [place] [address] Care Team Providers Care Music Composition Teacher Name Role Phone Robinson Howe MD Primary Care Provider + [phone] Jesus Monterroso MD Primary Care Provider Abram Flores MD Primary Care Provider Michael Hinojosa MD Primary Care Provider Driss nguyen [facility], Pcp Primary Care Provider Napoleon Mejia Primary Care Provider [phone] [facility], Pcp Primary Care Provider Maria T grace Encounter Details Date Type Department Care Team Description 08/15/2018 [employer] Business Analyst Report Medical Records [address] [place] [address] Becky Dolan MD Social History Tobacco Use [...] on filedocumented in this encounter Care Teams Music Composition Teacher Relationship Specialty Start Date End Date Robinson Howe MD [address] [place] [address] PCP - General Internal Medicine 11/03/14 04/13/20 Jesus Monterroso MD [address] [place] [address] PCP - General Internal Medicine 04/14/20 07/05/20 Abram Gardner MD [address] [place] [address] PCP - General Internal Medicine 07/06/20 12/24/20 Michael Gillette MD [address] [place] [address] PCP - General Internal Medicine 12/25/20 06/28/21 [facility], Pcp [address] [place], [place] [phone] PCP - General Internal Medicine 06/29/21 11/14/21 Napoleon Linda [address] [place] [address] PCP - General Internal Medicine 11/15/21 04/20/22 [facility], Pcp [address] [place] [address] PCP - General Internal Medicine 04/21/22 documented as of this encounter
--- OUTSIDE RECORDS SUMMARY | 2024-06-20 16:28 | XMS_ITS | Encounter Summary ---
Author Organization [facility] Address [address] [place] [address] Care Team Providers Care Hosted Services Analyst Name Role Phone Abram Gardner MD Primary Care Provider Michael Hinojosa MD Primary Care Provider Driss nguyen [facility], Pcp Primary Care Provider Napoleon Mejia Primary Care Provider [phone] [facility], Pcp Primary Care Provider Maria T grace Encounter Details Date Type Department Care Team Description 07/10/2020 Release of Information Medical Records [address] [place] [id number] Abstract, Provider Social History Tobacco Use Types [...] on filedocumented in this encounter Care Teams Hosted Services Analyst Relationship Specialty Start Date End Date Abram Gardner MD PCP - General Internal Medicine 07/06/20 12/24/20 Michael Gillette MD PCP - General Internal Medicine 12/25/20 06/28/21 [facility] Pcp PCP - General Internal Medicine 06/29/21 11/14/21 Napoleon Linda [address] [place] [address] PCP - General Internal Medicine 11/15/21 04/20/22 [facility], Pcp PCP - General Internal Medicine 04/21/22 documented as of this encounter
--- OUTSIDE RECORDS SUMMARY | 2024-06-20 16:28 | XMS_ITS | Encounter Summary ---
Author Organization [facility] Address [address] [place] [address] Care Team Providers Care Presales Consultant Name Role Phone Abram Gardner MD Primary Care Provider UnavailMichael Elmroe MD Primary Care Provider [facility] Primary Care Provider Napoleon Mejai Primary Care Provider [phone] [facility] [place], Pcp Primary Care Provider Maria T grace Encounter Details Date Type Department Care Team Description 11/06/2020 Refill Adult [address] [address] Abram Gardner MD Social History Tobacco Use [...] on filedocumented in this encounter Care Teams Presales Consultant Relationship Specialty Start Date End Date Abram Gardner MD PCP - General Internal Medicine 07/06/20 12/24/20 Michael Gillette MD PCP - General Internal Medicine 12/25/20 06/28/21 [facility] Pcp PCP - General Internal Medicine 06/29/21 11/14/21 Napoleon Linda [address] [place] [address] PCP - General Internal Medicine 11/15/21 04/20/22 [facility], Pcp PCP - General Internal Medicine 04/21/22 documented as of this encounter
--- OUTSIDE RECORDS SUMMARY | 2024-06-20 16:28 | XMS_ITS | Encounter Summary ---
Author Organization [facility] Address [address] [place] [address] Care Team Providers Care Cooking Instructor Name Role Phone Robinson Howe MD Primary Care Provider [phone] Jesus Monterroso MD Primary Care Provider Abram Flores MD Primary Care Provider Unavailab Michael Duvall MD Primary Care Provider Unavagabriel nguyen [facility], Pcp Primary Care Provider UnavailNapoleon White Primary Care Provider [phone] [facility], Pcp Primary Care Provider Unavailguido e Encounter Details Date Type Department Care Team Description 02/08/2018 Orders Only Medical Records [address] [place] [address] Terrence Corral MD [address] [place] [id number] Social History Tobacco Use Types Packs/Day [...] on filedocumented in this encounter Care Teams Cooking Instructor Relationship Specialty Start Date End Date Robinson Howe MD [address] [place] [address] PCP - General Internal Medicine 11/03/14 04/13/20 Jesus Monterroso MD [address] [place] [address] PCP - General Internal Medicine 04/14/20 07/05/20 Abram Gardner MD [address] [place] [address] PCP - General Internal Medicine 07/06/20 12/24/20 Michael Gillette MD [address] [place] [address] PCP - General Internal Medicine 12/25/20 06/28/21 [facility], Pcp [address] [place] [address] PCP - General Internal Medicine 06/29/21 11/14/21 Napoleon Linda [address] [place] [address] PCP - General Internal Medicine 11/15/21 04/20/22 [facility], Pcp [address] [place] [address] PCP - General Internal Medicine 04/21/22 documented as of this encounter
--- OUTSIDE RECORDS SUMMARY | 2024-06-20 16:28 | XMS_ITS | Encounter Summary ---
Author Organization [facility] Address [address] [place] [address] Care Team Providers Care Telephone Operator Chief Name Role Phone Robinson Howe MD Primary Care Provider + [phone] Jesus Monterroso MD Primary Care Provider Abram Flores MD Primary Care Provider Unavailab Michael Duvall MD Primary Care Provider Unavai patrick [facility], Pcp Primary Care Provider UnavailNapoleon White Primary Care Provider [phone] [facility], Pcp Primary Care Provider Unavailguido e Encounter Details Date Type Department Care Team Description 01/18/2018 Orders Only Medical Records [address] [place] [address] Terrence Corral MD [address] [place] [phone] Social History Tobacco Use Types Packs/Day [...] filedocumented in this encounter Care Teams Telephone Operator Chief Relationship Specialty Start Date End Date Robinson Howe MD [address] [place] [address] PCP - General Internal Medicine 11/03/14 04/13/20 Jesus Monterroso MD [address] [place] [address] PCP - General Internal Medicine 04/14/20 07/05/20 Abram Gardner MD [address] [place] [address] PCP - General Internal Medicine 07/06/20 12/24/20 Michael Gillette MD [address] [place] [address] PCP - General Internal Medicine 12/25/20 06/28/21 [facility], Pcp [address] [place] [address] PCP - General Internal Medicine 06/29/21 11/14/21 Napoleon Linda [address] [place] [address] PCP - General Internal Medicine 11/15/21 04/20/22 [facility], Pcp [address] [place], [place] [phone] PCP - General Internal Medicine 04/21/22 documented as of this encounter
--- OUTSIDE RECORDS SUMMARY | 2024-06-20 16:28 | XMS_ITS | Encounter Summary ---
Author Organization [facility] Address [address] [place] [address] Care Team Providers Care Professional Tutor Name Role Phone Robinson Howe MD Primary Care Provider [phone] Jesus Monterroso MD Primary Care Provider Abram Flores MD Primary Care Provider Michael Hinojosa MD Primary Care Provider Driss nguyen [facility], Pcp Primary Care Provider Napoleon Mejia Primary Care Provider [phone] [facility], Pcp Primary Care Provider Maria T grace Encounter Details Date Type Department Care Team Description 06/07/2016 Business Doc Medical Records [address] [place] [id number] Abstract, Provider Social History Tobacco Use Types [...] on filedocumented in this encounter Care Teams Professional Tutor Relationship Specialty Start Date End Date Robinson Howe MD [address] [place] [address] PCP - General Internal Medicine 11/03/14 04/13/20 Jesus Monterroso MD [address] [place] [address] PCP - General Internal Medicine 04/14/20 07/05/20 Abram Gardner MD [address] [place] [address] PCP - General Internal Medicine 07/06/20 12/24/20 Michael Gillette MD [address] [place] [address] PCP - General Internal Medicine 12/25/20 06/28/21 [facility], Pcp [address] [place], [place] [phone] PCP - General Internal Medicine 06/29/21 11/14/21 Napoleon Linda [address] [place] [address] PCP - General Internal Medicine 11/15/21 04/20/22 [facility], Pcp [address] [place] [address] PCP - General Internal Medicine 04/21/22 documented as of this encounter
--- OUTSIDE RECORDS SUMMARY | 2024-06-20 16:28 | XMS_ITS | Encounter Summary ---
Author Organization [facility] Address [address] [place] [address] Care Team Providers Care Legger Press Operator Name Role Phone Robinson Howe MD Primary Care Provider + [phone] Jesus Monterroso MD Primary Care Provider Abram Flores MD Primary Care Provider Unavailab Michael Duvall MD Primary Care Provider Driss nguyen [facility], Pcp Primary Care Provider UnavailNapoleon White Primary Care Provider [phone] [facility], Pcp Primary Care Provider Unavailabl e Reason for Visit * Reason Comments E-prescribe Rx Request Encounter Details Date Type Department Care Team Description 01/05/2017 Refill Adult Medicine [address] [phone] Jerod Daniel PA-C [address] [place] [address] [phone] E-prescribe Rx Request Social History Tobacco Use [...] / Plan: [place]ARE-[place] / Product Type: MEDICARE [id number] documented in this encounter Plan of Treatment Not on file documented as of this encounter Visit Diagnoses Not on filedocumented in this encounter Care Teams Legger Press Operator Relationship Specialty Start Date End Date Robinson Howe MD [address] [place] [address] PCP - General Internal Medicine 11/03/14 04/13/20 Jesus Monterroso MD [address] [place] [address] PCP - General Internal Medicine 04/14/20 07/05/20 Abram Gardner MD [address] [place] [address] PCP - General Internal Medicine 07/06/20 12/24/20 Michael Gillette MD [address] [place] [address] PCP - General Internal Medicine 12/25/20 06/28/21 Santa Berg [address] [place] [address] PCP - General Internal Medicine 06/29/21 11/14/21 Napoleon Linda [address] [place] [address] PCP - General Internal Medicine 11/15/21 04/20/22 [facility], Santa [address] [place] [address] PCP - General Internal Medicine 04/21/22 documented as of this encounter
--- OUTSIDE RECORDS SUMMARY | 2024-06-20 16:28 | XMS_ITS | Encounter Summary ---
Author Organization [facility] Address [address] [place] [address] Care Team Providers Care Casting Agent Name Role Phone Robinson Howe MD Primary Care Provider + [phone] Jesus Monterroso MD Primary Care Provider Abram Flores MD Primary Care Provider Unavailab Michael Duvall MD Primary Care Provider Driss nguyen [facility], Pcp Primary Care Provider Unavailabl Napoleon Ramirez Primary Care Provider [phone] [facility], Pcp Primary Care Provider Unavailabl e Reason for Visit * Reason Comments E-prescribe Rx Request Encounter Details Date Type Department Care Team Description 08/04/2017 Refill Adult Medicine [address] [phone] Robinson Howe MD [address] [place] [address] [phone] E-prescribe Rx Request Social History Tobacco Use [...] / Plan: [place]ARE-[place] / Product Type: MEDICARE [id number] documented in this encounter Plan of Treatment [...] reflux documented in this encounter Care Teams Casting Agent Relationship Specialty Start Date End Date Robinson Howe MD [address] [place] [address] PCP - General Internal Medicine 11/03/14 04/13/20 Jesus Monterroso MD [address] [place], [place] [phone] PCP - General Internal Medicine 04/14/20 07/05/20 Abram Gardner MD [address] [place] [address] PCP - General Internal Medicine 07/06/20 12/24/20 Michael Gillette MD [address] [place] [address] PCP - General Internal Medicine 12/25/20 06/28/21 [facility], Pcp [address] [place] [address] PCP - General Internal Medicine 06/29/21 11/14/21 Napoleon Linda [address] [place] [address] PCP - General Internal Medicine 11/15/21 04/20/22 [facility], Pcp [address] [place] [address] PCP - General Internal Medicine 04/21/22 documented as of this encounter
--- OUTSIDE RECORDS SUMMARY | 2024-06-20 16:28 | XMS_ITS | Encounter Summary ---
Author Organization [facility] Address [address] [place] [address] Care Team Providers Care General Car Supervisor Yard Name Role Phone Abram Gardner MD Primary Care Provider Michael Hinojosa MD Primary Care Provider Driss nguyen [facility], Pcp Primary Care Provider Napoleon Mejia Primary Care Provider [phone] [facility], Pcp Primary Care Provider Unavailabl e Reason for Visit * Reason Comments E-prescribe Rx Request Encounter Details Date Type Department Care Team Description 08/25/2020 Refill Allergy JUPITER [address] [place] [address] Cait Dumas MD E-prescribe Rx [...] filedocumented in this encounter Care Teams General Car Supervisor Yard Relationship Specialty Start Date End Date Abram Gardner MD PCP - General Internal Medicine 07/06/20 12/24/20 Michael Gillette MD PCP - General Internal Medicine 12/25/20 06/28/21 [facility] Pcp PCP - General Internal Medicine 06/29/21 11/14/21 Napoleon Linda [address] [place] [address] PCP - General Internal Medicine 11/15/21 04/20/22 [facility], Pcp PCP - General Internal Medicine 04/21/22 documented as of this encounter
--- OUTSIDE RECORDS SUMMARY | 2024-06-20 16:28 | XMS_ITS | Encounter Summary ---
Author Organization [facility] Address [address] [place] [address] Care Team Providers Care Math And Sciences Department Chair Name Role Phone Robinson Howe MD Primary Care Provider + [phone] Jesus Monterroso MD Primary Care Provider Abram Flores MD Primary Care Provider Unavailab Michael Duvall MD Primary Care Provider Driss nguyen [facility], Pcp Primary Care Provider Unavailabl Napoleon Ramirez Primary Care Provider [phone] [facility], Pcp Primary Care Provider Unavailabl e Reason for Visit * Reason Onset Date Comments Faxed Order 10/28/2017 [facility] Encounter Details Date Type Department Care Team Description 10/28/2017 Telephone Adult [address] [phone] Robinson Howe MD [address] [place] [address] [phone] Faxed Order ([facility]) Social History Tobacco Use Types [...] on filedocumented in this encounter Care Teams Math And Sciences Department Chair Relationship Specialty Start Date End Date Robinson Howe MD [address] [place] [address] PCP - General Internal Medicine 11/03/14 04/13/20 Jesus Monterroso MD [address] [place] [address] PCP - General Internal Medicine 04/14/20 07/05/20 Abram Gardner MD [address] [place] [address] PCP - General Internal Medicine 07/06/20 12/24/20 Michael Gillette MD [address] [place] [address] PCP - General Internal Medicine 12/25/20 06/28/21 [facility], Pcp [address] [place], [place] [phone] PCP - General Internal Medicine 06/29/21 11/14/21 Napoleon Linda [address] [place], [place] [phone] PCP - General Internal Medicine 11/15/21 04/20/22 [facility], Pcp [address] [place], [place] [phone] PCP - General Internal Medicine 04/21/22 documented as of this encounter
--- OUTSIDE RECORDS SUMMARY | 2024-06-20 16:28 | XMS_ITS | Encounter Summary ---
Author Organization [facility] Address [address] [place] [address] Care Team Providers Care Sales And Marketing Director Name Role Phone Ruddy Cruz MD Primary Care Provider Unavail able Robinson Howe MD Primary Care Provider + [phone] Jesus Monterroso MD Primary Care Provider Abram Flores MD Primary Care Provider Unavailab Michael Duvall MD Primary Care Provider Mariaelenavagabriel nguyen [facility], Pcp Primary Care Provider UnavailNapoleon White Primary Care Provider [phone] [facility], Pcp Primary Care Provider Unavailabl e Encounter Details Date Type Department Care Team Description 07/24/2014 Business Doc Medical Records [address] [place] [phone] Abstract, Provider Social History Tobacco Use Types [...] filedocumented in this encounter Care Teams Sales And Marketing Director Relationship Specialty Start Date End Date Ruddy Cruz MD PCP - General Internal Medicine 12/19/13 11/02/14 Robinson Howe MD [address] [place] [address] [phone] PCP - General Internal Medicine 11/03/14 04/13/20 Jesus Monterroso MD [address] [place] [address] PCP - General Internal Medicine 04/14/20 07/05/20 Abram Gardner MD [address] [place] [address] PCP - General Internal Medicine 07/06/20 12/24/20 Michael Gillette MD [address] [place] [address] PCP - General Internal Medicine 12/25/20 06/28/21 [facility], Pcp [address] [place] [address] PCP - General Internal Medicine 06/29/21 11/14/21 Napoleon Linda [address] [place], [place] [phone] PCP - General Internal Medicine 11/15/21 04/20/22 [facility], Pcp [address] [place] [address] PCP - General Internal Medicine 04/21/22 documented as of this encounter
--- OUTSIDE RECORDS SUMMARY | 2024-06-20 16:28 | XMS_ITS | Encounter Summary ---
Author Organization [facility] Address [address] [place] [address] Care Team Providers Care Investment Banking Associate Name Role Phone Ruddy Cruz MD Primary Care Provider Unavail able Robinson Howe MD Primary Care Provider + [phone] Jesus Monterroso MD Primary Care Provider Abram Flores MD Primary Care Provider Unavailab Michael Duvall MD Primary Care Provider Unavai patrick [facility], Pcp Primary Care Provider Unavailabl Napoleon Ramirez Primary Care Provider [phone] [facility], Pcp Primary Care Provider Unavailabl e Reason for Visit * Reason Onset Date Comments Faxed Order 06/09/2014 Encounter Details Date Type Department Care Team Description 06/09/2014 Telephone Adult Medicine [address] [address] Karlos Edwards MD Faxed Order Social History [...] on filedocumented in this encounter Care Teams Investment Banking Associate Relationship Specialty Start Date End Date Ruddy Cruz MD PCP - General Internal Medicine 12/19/13 11/02/14 Robinson Howe MD [address] [place] [address] PCP - General Internal Medicine 11/03/14 04/13/20 Jesus Monterroso MD [address] [place] [address] PCP - General Internal Medicine 04/14/20 07/05/20 Abram Gardner MD [address] [place] [address] PCP - General Internal Medicine 07/06/20 12/24/20 Michael Gillette MD [address] [place] [address] PCP - General Internal Medicine 12/25/20 06/28/21 [facility], Pcp [address] [place] [address] PCP - General Internal Medicine 06/29/21 11/14/21 Napoleon Linda [address] [place] [address] PCP - General Internal Medicine 11/15/21 04/20/22 [facility], Pcp [address] [place] [address] PCP - General Internal Medicine 04/21/22 documented as of this encounter
--- OUTSIDE RECORDS SUMMARY | 2024-06-20 16:28 | XMS_ITS | Encounter Summary ---
Author Organization [facility] Address [address] [place] [address] Care Team Providers Care Sleeve Presser Operator Name Role Phone Abram Gardner MD Primary Care Provider UnavailMichael Elmore MD Primary [facility] Care Provider Napoleon Mejia Primary Care Provider [facility], Pcp Primary Care Provider Maria T grace Encounter Details Date Type Department Care Team Description 11/06/2020 Refill Adult [address] [address] Abram Gardner MD Social History Tobacco Use [...] on filedocumented in this encounter Care Teams Sleeve Presser Operator Relationship Specialty Start Date End Date Abram Gardner MD PCP - General Internal Medicine 07/06/20 12/24/20 Michael Gillette MD PCP - General Internal Medicine 12/25/20 06/28/21 [facility], Pcp PCP - General Internal Medicine 06/29/21 11/14/21 Napoleon Linda [address] [place] [address] PCP - General Internal Medicine 11/15/21 04/20/22 [facility], Pcp PCP - General Internal Medicine 04/21/22 documented as of this encounter
--- OUTSIDE RECORDS SUMMARY | 2024-06-20 16:28 | XMS_ITS | Encounter Summary ---
Author Organization [facility] Address [address] [place] [address] Care Team Providers Care Human Resources District Manager Name Role Phone Robinson Howe MD Primary Care Provider + [phone] Jesus Monterroso MD Primary Care Provider Abram Flores MD Primary Care Provider Unavailab Michael Duvall MD Primary Care Provider Driss nguyen [facility], Pcp Primary Care Provider UnavailNapoleon White Primary Care Provider [phone] [facility], Pcp Primary Care Provider Unavailabl e Reason for Visit * Reason Comments E-prescribe Rx Request Encounter Details Date Type Department Care Team Description 06/22/2016 Refill Adult Medicine [address] [address] Jerod Daniel PA-C [address] [place] [address] [phone] E-prescribe Rx Request Social History Tobacco Use [...] / Plan: [place] / Product Type: MEDICARE [id number] documented in this encounter Plan of Treatment Not on file documented as of this encounter Visit Diagnoses Not on filedocumented in this encounter Care Teams Human Resources District Manager Relationship Specialty Start Date End Date Robinson Howe MD [address] [place] [address] PCP - General Internal Medicine 11/03/14 04/13/20 Jesus Monterroso MD [address] [place] [address] PCP - General Internal Medicine 04/14/20 07/05/20 Abram Gardner MD [address] [place] [address] PCP - General Internal Medicine 07/06/20 12/24/20 Michael Gillette MD [address] [place] [address] PCP - General Internal Medicine 12/25/20 06/28/21 [facility], Pcp [address] [place], [place] [phone] PCP - General Internal Medicine 06/29/21 11/14/21 Napoleon Linda [address] [place] [address] PCP - General Internal Medicine 11/15/21 04/20/22 [facility], Pcp [address] [place] [address] PCP - General Internal Medicine 04/21/22 documented as of this encounter
--- OUTSIDE RECORDS SUMMARY | 2024-06-20 16:28 | XMS_ITS | Encounter Summary ---
Author Organization [facility] Address [address] [place] [address] Care Team Providers Care Parks And Recreation Worker Name Role Phone Ruddy Cruz MD Primary Care Provider Unavail able Robinson Howe MD Primary Care Provider + [phone] Jesus Monterroso MD Primary Care Provider Abram Flores MD Primary Care Provider Unavailab Michael Duvall MD Primary Care Provider Driss nguyen [facility], Pcp Primary Care Provider UnavailNapoleon White Primary Care Provider [phone] [facility], Pcp Primary Care Provider Unavailguido e Encounter Details Date Type Department Care Team Description 03/25/2014 Home Health Certification Medical Records [address] [place] [address] Abstract, Provider Social History Tobacco Use Types [...] on filedocumented in this encounter Care Teams Parks And Recreation Worker Relationship Specialty Start Date End Date Ruddy Cruz MD PCP - General Internal Medicine 12/19/13 11/02/14 Robinson Howe MD [address] [place] [address] [phone] PCP - General Internal Medicine 11/03/14 04/13/20 Jesus Monterroso MD [address] [place] [address] PCP - General Internal Medicine 04/14/20 07/05/20 Abram Gardner MD [address] [place] [address] PCP - General Internal Medicine 07/06/20 12/24/20 Michael Gillette MD [address] [place] [address] PCP - General Internal Medicine 12/25/20 06/28/21 [facility], Pcp [address] [place] [address] PCP - General Internal Medicine 06/29/21 11/14/21 Napoleon Linda [address] [place] [address] PCP - General Internal Medicine 11/15/21 04/20/22 [facility], Pcp [address] [place] [address] PCP - General Internal Medicine 04/21/22 documented as of this encounter
--- OUTSIDE RECORDS SUMMARY | 2024-06-20 16:28 | XMS_ITS | Encounter Summary ---
Author Organization [facility] Address [address] [place] [address] Care Team Providers Care Transitional Studies Instructor Name Role Phone Robinson Howe MD Primary Care Provider + [phone] Jesus Monterroso MD Primary Care Provider Abram Flores MD Primary Care Provider Unavailab Michael Duvall MD Primary Care Provider Unavagabriel nguyen [facility], Pcp Primary Care Provider UnavailNapoleon White Primary Care Provider [phone] [facility], Pcp Primary Care Provider Unavailguido e Encounter Details Date Type Department Care Team Description 06/27/2016 Orders Only Medical Records [address] [place] [address] Alexandria Todd MD [address] [place] [address] [facility] [place] [id number] Social History Tobacco Use Types Packs/Day Years [...] on filedocumented in this encounter Care Teams Transitional Studies Instructor Relationship Specialty Start Date End Date Robinson Howe MD [address] [place] [address] PCP - General Internal Medicine 11/03/14 04/13/20 Jesus Monterroso MD [address] [place] [address] PCP - General Internal Medicine 04/14/20 07/05/20 Abram Gardner MD [address] [place] [address] PCP - General Internal Medicine 07/06/20 12/24/20 Michael Gillette MD [address] [place] [address] PCP - General Internal Medicine 12/25/20 06/28/21 [facility], Pcp [address] [place] [address] PCP - General Internal Medicine 06/29/21 11/14/21 Napoleon Linda [address] [place] [address] PCP - General Internal Medicine 11/15/21 04/20/22 [facility], Pcp [address] [place] [address] PCP - General Internal Medicine 04/21/22 documented as of this encounter
--- OUTSIDE RECORDS SUMMARY | 2024-06-20 16:28 | XMS_ITS | Encounter Summary ---
Author Organization [facility] Address [address] [place] [address] Care Team Providers Care Software Development Intern Name Role Phone Robinson Howe MD Primary Care Provider + [phone] Jesus Monterroso MD Primary Care Provider Abram Flores MD Primary Care Provider Michael Hinojosa MD Primary Care Provider Driss nguyen [facility] In[facility], Pcp Primary Care Provider Napoleon Mejia Primary Care Provider [phone] Count Includes [facility], Pcp Primary Care Provider Maria T grace Encounter Details Date Type Department Care Team Description 02/28/2018 Machine Sorter Report Medical Records [address] [place] [address] Abstract, Provider Social History Tobacco Use Types [...] on filedocumented in this encounter Care Teams Software Development Intern Relationship Specialty Start Date End Date Robinson Howe MD [address] [place] [address] PCP - General Internal Medicine 11/03/14 04/13/20 Jesus Monterorso MD [address] [place] [address] PCP - General Internal Medicine 04/14/20 07/05/20 Abram Gardner MD [address] [place], [place] [phone] PCP - General Internal Medicine 07/06/20 12/24/20 Michael Gillette MD [address] [place] [address] PCP - General Internal Medicine 12/25/20 06/28/21 Count Includes [facility], Pcp [address] [place], [place] [phone] PCP - General Internal Medicine 06/29/21 11/14/21 Napoleon Linda [address] [place] [address] PCP - General Internal Medicine 11/15/21 04/20/22 Count Includes [facility], Pcp [address] [place] [address] PCP - General Internal Medicine 04/21/22 documented as of this encounter
--- OUTSIDE RECORDS SUMMARY | 2024-06-20 16:28 | XMS_ITS | Encounter Summary ---
Author Organization [facility] Address [address] [place] [address] Care Team Providers Care Health Aide Name Role Phone Robinson Howe MD Primary Care Provider + [phone] Jesus Monterroso MD Primary Care Provider Abram Flores MD Primary Care Provider Unavailab Michael Duvall MD Primary Care Provider Mariaelenavagabriel nguyen [facility], Pcp Primary Care Provider Unavailabl e Napoleon Linda Primary Care Provider [phone] [facility], Pcp Primary Care Provider Unavailabl e Reason for Visit * Reason Onset Date Comments Faxed Order 09/26/2017 Encounter Details Date Type Department Care Team Description 09/26/2017 Telephone Adult [address] [phone] Robinson Howe MD [address] [place] [address] [id number] Faxed Order Social History Tobacco Use Types [...] Yulisa Alexandra - 09/26/2017 10:58 AM EDT [facility], Referral Form, documented in this encounter Plan of Treatment Not on file documented as of this encounter Visit Diagnoses Not on filedocumented in this encounter Care Teams Health Aide Relationship Specialty Start Date End Date Robinson Howe MD [address] [place] [address] PCP - General Internal Medicine 11/03/14 04/13/20 Jesus Monterroso MD [address] [place] [address] PCP - General Internal Medicine 04/14/20 07/05/20 Abram Gardner MD [address] [place] [address] PCP - General Internal Medicine 07/06/20 12/24/20 Michael Gillette MD [address] [place] [address] PCP - General Internal Medicine 12/25/20 06/28/21 [facility], Pcp [address] [place] [address] PCP - General Internal Medicine 06/29/21 11/14/21 Napoleon Linda [address] [place] [address] PCP - General Internal Medicine 11/15/21 04/20/22 [facility], Pcp [address] [place], [place] [phone] PCP - General Internal Medicine 04/21/22 documented as of this encounter
--- OUTSIDE RECORDS SUMMARY | 2024-06-20 16:28 | XMS_ITS | Encounter Summary ---
Author Organization [facility] Address [address] [place] [address] Care Team Providers Care Carving Machine Operator Name Role Phone Abram Gardner MD Primary Care Provider Michael Hinojosa MD Primary Care Provider Driss nguyen [facility], Pcp Primary Care Provider Napoleon Mejia Primary Care Provider [phone] [facility] Pcp Primary Care Provider Unavailabl e Reason for Visit * Reason Comments E-prescribe Rx Request Encounter Details Date Type Department Care Team Description 09/27/2020 Refill Orthopedics-[address] [address] Francis Ndiaye PAYangC [address] [place] [address] [phone] E-prescribe Rx Request Social History Tobacco Use [...] on filedocumented in this encounter Care Teams Carving Machine Operator Relationship Specialty Start Date End Date Abram Gardner MD PCP - General Internal Medicine 07/06/20 12/24/20 Michael Gillette MD PCP - General Internal Medicine 12/25/20 06/28/21 [facility], Pcp PCP - General Internal Medicine 06/29/21 11/14/21 Napoleon Linda [address] [place] [address] PCP - General Internal Medicine 11/15/21 04/20/22 [facility], Pcp PCP - General Internal Medicine 04/21/22 documented as of this encounter
--- OUTSIDE RECORDS SUMMARY | 2024-06-20 16:28 | XMS_ITS | Encounter Summary ---
Author Organization [facility] Address [address] [place] [address] Care Team Providers Care Utility Maintenance Worker Name Role Phone Robinson Howe MD Primary Care Provider + [phone] Jesus Monterroso MD Primary Care Provider Abram Flores MD Primary Care Provider Unavailab Michael Duvall MD Primary Care Provider Driss nguyen [facility], Pcp Primary Care Provider Unavailabl e Napoleon Linda Primary Care Provider [phone] [facility], Pcp Primary Care Provider Unavailabl e Reason for Visit * Reason Onset Date Comments TEST RESULTS 07/06/2016 Encounter Details Date Type Department Care Team Description 07/06/2016 Telephone Adult [address] [id number] Robinson Howe MD [address] [place] [address] [phone] TEST RESULTS Social History Tobacco Use Types [...] on filedocumented in this encounter Care Teams Utility Maintenance Worker Relationship Specialty Start Date End Date Robinson Howe MD [address] [place] [address] PCP - General Internal Medicine 11/03/14 04/13/20 Jesus Monterroso MD [address] [place] [address] PCP - General Internal Medicine 04/14/20 07/05/20 Abram Gardner MD [address] [place] [address] PCP - General Internal Medicine 07/06/20 12/24/20 Michael Gillette MD [address] [place] [address] PCP - General Internal Medicine 12/25/20 06/28/21 [facility], Pcp [address] [place] [address] PCP - General Internal Medicine 06/29/21 11/14/21 Napoleon Linda [address] [place], [place] [phone] PCP - General Internal Medicine 11/15/21 04/20/22 [facility], Pcp [address] [place] [address] PCP - General Internal Medicine 04/21/22 documented as of this encounter
== END 2024-06-20 14:56 | disposition home or self-care (01) ==
LOC: HO.HVS 14:21
PROVIDERS: PCP Internal Medicine; Visit Provider Surgery Vascular Surgery
DX: I83.11 Varicose veins of right lower extremity with inflammation (principal); I73.9 Peripheral vascular disease, unspecified
CPT/HCPCS: 99204; G2211

== ENCOUNTER → 2024-06-20 14:20 | Outpatient (BNVA) | payer OTHER, SELFPAY | PROVIDERS: PCP Internal Medicine; Visit Provider Surgery Vascular Surgery | DX: I83.11 Varicose veins of right lower extremity with inflammation (principal); I73.9 Peripheral vascular disease, unspecified | CPT/HCPCS: 99202 ==

== ENCOUNTER 2024-07-08 13:21 | Outpatient (AMB) | payer OTHER, SELFPAY ==
--- OUTSIDE RECORDS SUMMARY | 2024-07-08 13:25 | XMS_ITS | Encounter Summary ---
Author Organization [facility] Address [address] [place] [address] Care Team Providers Care Hand Launderer Name Role Phone Robinson Howe MD Primary Care Provider + [phone] Jesus Monterroso MD Primary Care Provider Abram Flores MD Primary Care Provider Michael Hinojosa MD Primary Care Provider Driss nguyen [facility], Pcp Primary Care Provider Napoleon Mejia Primary Care Provider [phone] [facility], Pcp Primary Care Provider Maria T grace Encounter Details Date Type Department Care Team Description 02/20/2020 [facility] Medical Records [address] [place] [address] Abstract, Provider Social History Tobacco Use Types [...] filedocumented in this encounter Care Teams Hand Launderer Relationship Specialty Start Date End Date Robinson Howe MD [address] [place] [address] PCP - General Internal Medicine 11/03/14 04/13/20 Jesus Monterroso MD [address] [place] [address] PCP - General Internal Medicine 04/14/20 07/05/20 Abram Gardner MD [address] [place] [address] PCP - General Internal Medicine 07/06/20 12/24/20 Michael Gillette MD [address] [place] [address] PCP - General Internal Medicine 12/25/20 06/28/21 [facility], Pcp [address] [place], [place] [phone] PCP - General Internal Medicine 06/29/21 11/14/21 Napoleon Linda [address] [place] [address] PCP - General Internal Medicine 11/15/21 04/20/22 [facility], Pcp [address] [place] [address] PCP - General Internal Medicine 04/21/22 documented as of this encounter
--- OUTSIDE RECORDS SUMMARY | 2024-07-08 13:25 | XMS_ITS | Encounter Summary ---
Author Organization [facility] Address [address] [place] [address] Care Team Providers Care Security Specialist Name Role Phone Robinson Howe MD Primary Care Provider + [phone] Jesus Monterroso MD Primary Care Provider Abram Flores MD Primary Care Provider Unavailab Michael Duvall MD Primary Care Provider Driss nguyen [facility], Pcp Primary Care Provider UnavailNapoleon White Primary Care Provider [phone] [facility], Pcp Primary Care Provider Unavailguido e Encounter Details Date Type Department Care Team Description 03/03/2020 Refill Gastroenterology - [place] [address] [facility] [address] [place] [id number] Tien Xiong MD [address] [facility] [address] [place] [address] Social History Tobacco Use Types Packs/Day Years [...] on filedocumented in this encounter Care Teams Security Specialist Relationship Specialty Start Date End Date Robinson Howe MD [address] [place] [address] PCP - General Internal Medicine 11/03/14 04/13/20 Jesus Monterroso MD [address] [place] [address] PCP - General Internal Medicine 04/14/20 07/05/20 Abram Gardner MD [address] [place] [address] PCP - General Internal Medicine 07/06/20 12/24/20 Michael Gillette MD [address] [place] [address] PCP - General Internal Medicine 12/25/20 06/28/21 [facility], Pcp [address] [place] [address] PCP - General Internal Medicine 06/29/21 11/14/21 Napoleon Linda [address] [place] [address] PCP - General Internal Medicine 11/15/21 04/20/22 [facility], Pcp [address] [place] [address] PCP - General Internal Medicine 04/21/22 documented as of this encounter
--- OUTSIDE RECORDS SUMMARY | 2024-07-08 13:25 | XMS_ITS | Encounter Summary ---
Author Organization [facility] Address [address] [place] [address] Care Team Providers Care Packager Machine Name Role Phone Michael Gillette MD Primary Care Provider Driss nguyen [facility], Pcp Primary Care Provider Napoleon Mejia Primary Care Provider [phone] [facility], Pcp Primary Care Provider Unavailabl e Reason for Visit * Reason Comments E-prescribe Rx Request Encounter Details Date Type Department Care Team Description 01/11/2021 Refill Adult Medicine [address] [address] Abram Gardner MD E-prescribe Rx Request Social [...] N/A Patients current insurance carrier is: Payor: [facility] MCR / Plan: HMO $0 [facility] [id number] / Product Type: HMO [id number] documented in this encounter Plan of Treatment Not on file documented as of this encounter Visit Diagnoses Not on filedocumented in this encounter Care Teams Packager Machine Relationship Specialty Start Date End Date Michael Gillette MD PCP - General Internal Medicine 12/25/20 06/28/21 [facility], Pcp PCP - General Internal Medicine 06/29/21 11/14/21 Napoleon Linda [address] [place] [address] PCP - General Internal Medicine 11/15/21 04/20/22 [facility], Pcp PCP - General Internal Medicine 04/21/22 documented as of this encounter
--- OUTSIDE RECORDS SUMMARY | 2024-07-08 13:25 | XMS_ITS | Encounter Summary ---
Author Organization [facility] Address [address] [place] [address] [address] [address] Care Team Providers Care Laser Technician Name Role Phone Unavailable Primary Care Provider Unavailabl e Reason for Visit * Reason Onset Date Comments Durable Medical Equipment 01/18/2023 Encounter Details Date Type Department Care Team ([facility] st Contact Info) Description 01/18/2023 Telephone [facility] MEDICINE [address] [place] [address] Jesus Wiseman MD [address] [place] [address] Durable Medical Equipment Social History Tobacco Use [...] Miscellaneous Notes * Telephone Encounter - Ayaan Ayala - 01/18/2023 4:39 PM EST Tc from [facility] working with [facility] requesting the following. Pull ups size Medium 4 per day, Wipes 4 per month, Disposable bed pads 2 per day, and she [id number] refills for all the supply's. Any questions please contact Susana at [phone] ext [phone] FYI after further inspection this pt does not seem active. documented in this encounter Plan of Treatment Upcoming Encounters Date Type Department Care Team (Late st Contact Info) Description 09/13/2024 3:00 PM EDT Office Visit [facility] ADULT DENTAL [address] [place] [address] Madeline Baltazar [address] [place] [address] documented as of this encounter Visit Diagnoses Not on filedocumented in this encounter
--- OUTSIDE RECORDS SUMMARY | 2024-07-08 13:25 | XMS_ITS | Encounter Summary ---
Author Organization [facility] Address [address] [place] [address] Care Team Providers Care Valance Cutter Name Role Phone Robinson Howe MD Primary Care Provider [phone] Jesus Monterroso MD Primary Care Provider Abram Flores MD Primary Care Provider Unavailab Michael Duvall MD Primary Care Provider Driss nguyen [facility], Pcp Primary Care Provider Unavailabl Napoleon Ramirez Primary Care Provider [phone] [facility], Pcp Primary Care Provider Unavailabl e Reason for Visit * Reason Onset Date Comments Faxed Refill 12/10/2019 Encounter Details Date Type Department Care Team Description 12/10/2019 Refill Adult Medicine [address] [phone] Robinson Howe MD [address] [place] [address] [phone] Faxed Refill Social History Tobacco Use Types [...] N/A Patients current insurance carrier is: Payor: [facility] M[facility] / Plan: HMO $0 [facility] [id number] / Product Type: HMO [id number] documented in this encounter Plan of Treatment Not on file documented as of this encounter Visit Diagnoses Not on filedocumented in this encounter Care Teams Valance Cutter Relationship Specialty Start Date End Date Robinson Howe MD [address] [place] [address] PCP - General Internal Medicine 11/03/14 04/13/20 Jesus Monterroso MD [address] [place] [address] PCP - General Internal Medicine 04/14/20 07/05/20 Abram Gardner MD [address] [place] [address] PCP - General Internal Medicine 07/06/20 12/24/20 Michael Gillette MD [address] [place], [place] [phone] PCP - General Internal Medicine 12/25/20 06/28/21 [facility], Pcp [address] [place] [address] PCP - General Internal Medicine 06/29/21 11/14/21 Napoleon Linda [address] [place] [address] PCP - General Internal Medicine 11/15/21 04/20/22 [facility], Pcp [address] [place] [address] PCP - General Internal Medicine 04/21/22 documented as of this encounter
--- OUTSIDE RECORDS SUMMARY | 2024-07-08 13:25 | XMS_ITS | Encounter Summary ---
Author Organization [facility] Address [address] [place] [address] [address] [place] [address] Care Team Providers Care Outreach And Education Social Worker Name Role Phone Unavailable Primary Care Provider Unavailabl e Encounter Details Date Type Department Care Team (Latest Contact Info) Description 04/05/2018 Abstract [facility] CONVERSIONS Dental, Provider, DDS Social History [...] 3:00 PM EDT Office Visit [facility] ADULT DENTAL [address] [place] [address] Delaney, Madeline [address] [place] [address] documented as of this encounter Visit Diagnoses Not on filedocumented in this encounter
--- OUTSIDE RECORDS SUMMARY | 2024-07-08 13:25 | XMS_ITS | Encounter Summary ---
Author Organization [employer] [facility] Address [address] [place] [address] [address] [place] [address] Care Team Providers Care Kaiawhina Name Role Phone Unavailable Primary Care Provider Unavailabl e Encounter Details Date Type Department Care Team (Latest Contact Info) Description 10/03/2018 Abstract [facility] CONVERSIONS Dental, Provider, DDS Social [...] Description 09/13/2024 3:00 PM EDT Office Visit [facility] ADULT DENTAL [address] [place] [address] Delaney, Madeline [address] [place] [address] documented as of this encounter Visit Diagnoses Not on filedocumented in this encounter
--- OUTSIDE RECORDS SUMMARY | 2024-07-08 13:25 | XMS_ITS | Encounter Summary ---
Author Organization [facility] Address [address] [place] [address] Care Team Providers Care Cash Van Salesperson Name Role Phone Michael Gillette MD Primary Care Provider Driss nguyen [facility], Pcp Primary Care Provider Napoleon Mejia Primary Care Provider [phone] [facility] Primary Care Provider Maria T grace Encounter Details Date Type Department Care Team Description 01/13/2021 Orders Only Adult Medicine [address] [address] Michael Gillette MD Preoperative examination; Screening for deficiency anemia; director financial systems current use of anticoagulant therapy Social History [...] 01/13/2022 PROTHROMBIN TIME Lab Routine Preoperative examination director financial systems current use of anticoagulant therapy Expected: 01/13/2021 (Approximate), Expires: 01/13/2022 THROMBOPLASTIN TIME, PARTIAL Lab Routine Preoperative examination director financial systems current use of anticoagulant therapy Expected: 01/13/2021 (Approximate), Expires: 01/13/2022 URINALYSIS, ROUTINE Lab Routine Preoperative examination Expected: 01/13/2021 (Approximate), Expires: 01/13/2022 documented as of this encounter Visit Diagnoses Diagnosis Preoperative examination Preoperative examination, unspecified Screening for deficiency anemia Screening for other and unspecified deficiency anemia senior living current use of anticoagulant therapy documented in this encounter Care Teams Cash Van Salesperson Relationship Specialty Start Date End Date Michael Gillette MD PCP - General Internal Medicine 12/25/20 06/28/21 [facility], Pcp PCP - General Internal Medicine 06/29/21 11/14/21 Napoleon Linda [address] [place] [address] PCP - General Internal Medicine 11/15/21 04/20/22 [facility], Pcp PCP - General Internal Medicine 04/21/22 documented as of this encounter
--- OUTSIDE RECORDS SUMMARY | 2024-07-08 13:25 | XMS_ITS | Encounter Summary ---
Author Organization [facility] Address [address] [place] [address] Care Team Providers Care Court Abstractor Name Role Phone Robinson Howe MD Primary Care Provider [phone] Jesus Monterroso MD Primary Care Provider Abram Flores MD Primary Care Provider Unavailab Michael Duvall MD Primary Care Provider Driss nguyen [facility], Pcp Primary Care Provider Unavailabl e Napoleon Linda Primary Care Provider [phone] [facility], Pcp Primary Care Provider Unavailabl e Reason for Visit * Reason Onset Date Comments Faxed Refill 02/09/2020 Encounter Details Date Type Department Care Team Description 02/09/2020 Refill Adult Medicine [address] [id number] Robinson Howe MD [address] [place] [address] [id number] Faxed Refill Social History Tobacco Use Types [...] ?? Patients current insurance carrier is: Payor: [facility] M[facility] / Plan: HMO $0 [facility] [id number] / Product Type: HMO [id number] ?? documented in this encounter Plan of Treatment Not on file documented as of this encounter Visit Diagnoses Not on filedocumented in this encounter Care Teams Court Abstractor Relationship Specialty Start Date End Date Robinson Howe MD [address] [place] [address] PCP - General Internal Medicine 11/03/14 04/13/20 Jesus Monterroso MD [address] [place] [address] PCP - General Internal Medicine 04/14/20 07/05/20 Abram Gardner MD [address] [place], [place] [phone] PCP - General Internal Medicine 07/06/20 12/24/20 Michael Gillette MD [address] [place], [place] [phone] PCP - General Internal Medicine 12/25/20 06/28/21 [facility], Pcp [address] [place] [address] PCP - General Internal Medicine 06/29/21 11/14/21 Napoleon Linda [address] [place], [place] [phone] PCP - General Internal Medicine 11/15/21 04/20/22 [facility], Pcp [address] [place], [place] [phone] PCP - General Internal Medicine 04/21/22 documented as of this encounter
--- OUTSIDE RECORDS SUMMARY | 2024-07-08 13:25 | XMS_ITS | Encounter Summary ---
Author Organization [facility] Address [address] [place] [address] [address] [place] [address] Care Team Providers Care Leather Cleaner Name Role Phone Unavailable Primary Care Provider Unavailabl e Encounter Details Date Type Department Care Team (Latest Contact Info) Description 12/24/2021 Abstract [facility] CONVERSIONS Dental, Provider, DDS Social History [...] Upcoming Encounters Date Type Department Care Team ( st Contact Info) Description 09/13/2024 3:00 PM EDT Office Visit [facility]ULT D[facility] [address] [place] [address] Delaney, Madeline [address] [place] [address] documented as of this encounter Visit Diagnoses Not on filedocumented in this encounter
--- OUTSIDE RECORDS SUMMARY | 2024-07-08 13:25 | XMS_ITS | Encounter Summary ---
Author Organization [facility] Address [address] [place] [address] [address] [address] Care Team Providers Care Cultural Centre Manager Name Role Phone Unavailable Primary Care Provider Unavailabl e Encounter Details Date Type Department Care Team (Late st Contact Info) Description 01/26/2022 Abstract [facility] [address] [place] [address] Dental, Provider, DDS Social History Tobacco Use [...] Recorded In the last 10 days, have yo paige been in contact with someone who was confirmed or suspected to have Coronavirus/COVID-19? No / Unsure 01/28/2022 12:58 PM EST documented as of this encounter Plan of Treatment Upcoming Encounters Date Type Department Care Team (Late st Contact Info) Description 09/13/2024 3:00 PM EDT Office Visit [facility] [address] [place] [address] Delaney, Madeline [address] [place] [address] documented as of this encounter Procedures Procedure [...]
--- OUTSIDE RECORDS SUMMARY | 2024-07-08 13:25 | XMS_ITS | Encounter Summary ---
Author Organization [facility] Address [address] [place] [address] [address] [address] Care Team Providers Care Family Protection Specialist Name Role Phone Unavailable Primary Care Provider Unavailabl e Encounter Details Date Type Department Care Team (Latest Contact Info) Description 12/24/2021 Abstract [facility] CONVERSIONS Dental, Provider, DDS Social [...] [facility] ADULT DENTAL [address] [place] [address] Delaney, Madeline [address] [place] [address] documented as of this encounter Visit Diagnoses Not on filedocumented in this encounter
--- OUTSIDE RECORDS SUMMARY | 2024-07-08 13:26 | XMS_ITS | Encounter Summary ---
Author Organization [facility] Address [address] [place] [address] Care Team Providers Care Biodiesel Operations Manager Name Role Phone Robinson Howe MD Primary Care Provider [phone] Jesus Monterroso MD Primary Care Provider Abram Flores MD Primary Care Provider Unavailab Michael Duvall MD Primary Care Provider Mariaelenavagabriel nguyen [facility], Pcp Primary Care Provider Unavailabl e Napoleon Linda Primary Care Provider [phone] [facility], Pcp Primary Care Provider Unavailabl e Reason for Visit * Reason Onset Date Comments refill request 06/10/2019 Encounter Details Date Type Department Care Team Description 06/10/2019 Refill Adult Medicine [address] [id number] Robinson Howe MD [address] [place] [address] [phone] refill request Social History Tobacco Use Types [...] - 06/10/2019 5:[address] Ayala ([facility]) prescribed the Advair. However it's possible [...] [facility] / Plan[id number] / Product Type: HMO [id number] documented in this encounter Plan of Treatment Not on file documented as of this encounter Visit Diagnoses Not on filedocumented in this encounter Care Teams Biodiesel Operations Manager Relationship Specialty Start Date End Date Robinson Howe MD [address] [place] [address] PCP - General Internal Medicine 11/03/14 04/13/20 Jesus Monterroso MD [address] [place] [address] PCP - General Internal Medicine 04/14/20 07/05/20 Abram Gardner MD [address] [place] [address] PCP - General Internal Medicine 07/06/20 12/24/20 Michael Gillette MD [address] [place] [address] PCP - General Internal Medicine 12/25/20 06/28/21 [facility], Pcp [address] [place] [address] PCP - General Internal Medicine 06/29/21 11/14/21 Napoleon Linda [address] [place] [address] PCP - General Internal Medicine 11/15/21 04/20/22 [facility], Pcp [address] [place], [place] [phone] PCP - General Internal Medicine 04/21/22 documented as of this encounter
--- OUTSIDE RECORDS SUMMARY | 2024-07-08 13:26 | XMS_ITS | Encounter Summary ---
Author Organization [facility] Address [address] [place] [address] Care Team Providers Care Stamping Mill Tender Name Role Phone Abram Gardner MD Primary Care Provider Unavailab Michael Duvall MD [facility] Primary Care Provider Napoleon Mejia Primary Care Provider [phone] [facility], Pcp Primary Care Provider Maria T grace Encounter Details Date Type Department Care Team Description 11/06/2020 Refill Adult [address] [address] Abram Gardner MD Social History Tobacco Use [...] on filedocumented in this encounter Care Teams Stamping Mill Tender Relationship Specialty Start Date End Date Abram Gardner MD PCP - General Internal Medicine 07/06/20 12/24/20 Michael Gillette MD PCP - General Internal Medicine 12/25/20 06/28/21 [facility], Pcp PCP - General Internal Medicine 06/29/21 11/14/21 Napoleon Linda [address] [place] [address] PCP - General Internal Medicine 11/15/21 04/20/22 [facility], Pcp PCP - General Internal Medicine 04/21/22 documented as of this encounter
--- OUTSIDE RECORDS SUMMARY | 2024-07-08 13:26 | XMS_ITS | Encounter Summary ---
Author Organization [facility] Address [address] [place] [address] Care Team Providers Care Mid Level Java Developer Name Role Phone Robinson Howe MD Primary Care Provider [phone] Jesus Monterroso MD Primary Care Provider Abram Flores MD Primary Care Provider Unavailab Michael Duvall MD Primary Care Provider Driss nguyen [facility], Pcp Primary Care Provider Unavailabl e Napoleon Linda Primary Care Provider [phone] [facility], Pcp Primary Care Provider Unavailabl e Reason for Visit * Reason Onset Date Comments Faxed Order 06/10/2015 Encounter Details Date Type Department Care Team Description 06/10/2015 Telephone Adult [address] [phone] Robinson Howe MD [address] [place] [address] [phone] Faxed Order Social History Tobacco Use Types [...] on filedocumented in this encounter Care Teams Mid Level Java Developer Relationship Specialty Start Date End Date Robinson Howe MD [address] [place] [address] PCP - General Internal Medicine 11/03/14 04/13/20 Jesus Monterroso MD [address] [place] [address] PCP - General Internal Medicine 04/14/20 07/05/20 Abram Gardner MD [address] [place] [address] PCP - General Internal Medicine 07/06/20 12/24/20 Michael Gillette MD [address] [place] [address] PCP - General Internal Medicine 12/25/20 06/28/21 [facility], Pcp [address] [place] [address] PCP - General Internal Medicine 06/29/21 11/14/21 Napoleon Linda [address] [place] [address] PCP - General Internal Medicine 11/15/21 04/20/22 [facility], Pcp [address] [place] [address] PCP - General Internal Medicine 04/21/22 documented as of this encounter
--- OUTSIDE RECORDS SUMMARY | 2024-07-08 13:26 | XMS_ITS | Encounter Summary ---
Author Organization [facility] Address [address] [place] [address] Care Team Providers Care Watershed Tender Name Role Phone Louisa Machuca MD Primary Care Provider Unavailable Ruddy Cruz MD Primary Care Provider Unavail able Robinson Howe MD Primary Care Provider [phone] Jesus Monterroso MD Primary Care Provider Abram Flores MD Primary Care Provider Unavailab Michael Duvall MD Primary Care Provider Driss nguyen [facility], Pcp Primary Care Provider UnavailNapoleon White Primary Care Provider [phone] [facility], Pcp Primary Care Provider Maria T grace Encounter Details Date Type Department Care Team Description 09/12/2013 Business Doc Medical Records [address] [place] [id number] Abstract, Provider Social History Tobacco Use Types [...] on filedocumented in this encounter Care Teams Watershed Tender Relationship Specialty Start Date End Date Louisa Machuca MD PCP - General Internal Medicine 07/17/13 Ruddy Cruz MD PCP - General Internal Medicine 12/19/13 11/02/14 Robinson Howe MD [address] [place] [address] PCP - General Internal Medicine 11/03/14 04/13/20 Jesus Monterroso MD [address] [place] [address] PCP - General Internal Medicine 04/14/20 07/05/20 Abram Gardner MD [address] [place] [address] PCP - General Internal Medicine 07/06/20 12/24/20 Michael Gillette MD [address] [place] [address] PCP - General Internal Medicine 12/25/20 06/28/21 [facility], Pcp [address] [place] [address] PCP - General Internal Medicine 06/29/21 11/14/21 Napoleon Linda [address] [place] [address] PCP - General Internal Medicine 11/15/21 04/20/22 [facility], Pcp [address] [place] [address] PCP - General Internal Medicine 04/21/22 documented as of this encounter
--- OUTSIDE RECORDS SUMMARY | 2024-07-08 13:26 | XMS_ITS | Encounter Summary ---
Author Organization [facility] Address [address] [place] [address] Care Team Providers Care Cutter Operator Name Role Phone Robinson Howe MD Primary Care Provider [phone] Jesus Monterroso MD Primary Care Provider Abram Flores MD Primary Care Provider Michael Hinojosa MD Primary Care Provider Driss nguyen [facility], Pcp Primary Care Provider Napoleon Mejia Primary Care Provider [phone] [facility], Pcp Primary Care Provider Maria T grace Encounter Details Date Type Department Care Team Description 01/21/2015 Business Doc Medical Records [address] [place] [id number] Abstract, Provider Social History Tobacco Use Types [...] on filedocumented in this encounter Care Teams Cutter Operator Relationship Specialty Start Date End Date Robinson Howe MD [address] [place] [address] PCP - General Internal Medicine 11/03/14 04/13/20 Jesus Monterroso MD [address] [place] [address] PCP - General Internal Medicine 04/14/20 07/05/20 Abram Gardner MD [address] [place] [address] PCP - General Internal Medicine 07/06/20 12/24/20 Michael Gillette MD [address] [place] [address] PCP - General Internal Medicine 12/25/20 06/28/21 [facility], Pcp [address] [place], [place] [phone] PCP - General Internal Medicine 06/29/21 11/14/21 Napoleon Linda [address] [place] [address] PCP - General Internal Medicine 11/15/21 04/20/22 [facility], Pcp [address] [place] [address] PCP - General Internal Medicine 04/21/22 documented as of this encounter
--- OUTSIDE RECORDS SUMMARY | 2024-07-08 13:26 | XMS_ITS | Encounter Summary ---
Author Organization [facility] Address [address] [place] [address] Care Team Providers Care Train Control Electronic Technician Name Role Phone Robinson Howe MD Primary Care Provider [phone] Jesus Monterroso MD Primary Care Provider Abram Flores MD Primary Care Provider Michael Hinojosa MD Primary Care Provider Driss nguyen [facility], Pcp Primary Care Provider Napoleon Mejia Primary Care Provider [phone] [facility], Pcp Primary Care Provider Maria T grace Encounter Details Date Type Department Care Team Description 07/05/2017 Family Resource Specialist Report Medical Records [address] [place] [address] Jorge Perez Social History Tobacco Use Types Packs/Day Years [...] on filedocumented in this encounter Care Teams Train Control Electronic Technician Relationship Specialty Start Date End Date Robinson Howe MD [address] [place] [address] [phone] PCP - General Internal Medicine 11/03/14 04/13/20 Jesus Monterroso MD [address] [place] [address] PCP - General Internal Medicine 04/14/20 07/05/20 Abram Gardner MD [address] [place] [address] PCP - General Internal Medicine 07/06/20 12/24/20 Michael Gillette MD [address] [place] [address] PCP - General Internal Medicine 12/25/20 06/28/21 [facility], Pcp [address] [place], [place] [address] PCP - General Internal Medicine 06/29/21 11/14/21 Napoleon Linda [address] [place] [address] PCP - General Internal Medicine 11/15/21 04/20/22 [facility], Pcp [address] [place] [address] PCP - General Internal Medicine 04/21/22 documented as of this encounter
--- OUTSIDE RECORDS SUMMARY | 2024-07-08 13:26 | XMS_ITS | Encounter Summary ---
Author Organization [facility] Address [address] [place] [address] Care Team Providers Care Customer Program Specialist Name Role Phone Abram Gardner MD Primary Care Provider Michael Hinojosa MD Primary Care Provider Driss nguyen [facility], Pcp Primary Care Provider Napoleon Mejia Primary Care Provider [phone] [facility], Pcp Primary Care Provider Maria T grace Encounter Details Date Type Department Care Team Description 07/10/2020 Release of Information Medical Records [address] [place] [id number] Abstract, Provider Social History Tobacco Use Types [...] on filedocumented in this encounter Care Teams Customer Program Specialist Relationship Specialty Start Date End Date Abram Gardner MD PCP - General Internal Medicine 07/06/20 12/24/20 Michael Gillette MD PCP - General Internal Medicine 12/25/20 06/28/21 [facility], Pcp PCP - General Internal Medicine 06/29/21 11/14/21 Napoleon Linda [address] [place] [address] PCP - General Internal Medicine 11/15/21 04/20/22 [facility], Pcp PCP - General Internal Medicine 04/21/22 documented as of this encounter
--- OUTSIDE RECORDS SUMMARY | 2024-07-08 13:26 | XMS_ITS | Encounter Summary ---
Author Organization [facility] Address [address] [place] [address] Care Team Providers Care Tire Bladder Maker Name Role Phone Robinson Howe MD Primary Care Provider [phone] Jesus Monterroso MD Primary Care Provider Abram Flores MD Primary Care Provider Michael Hinojosa MD Primary Care Provider Driss nguyen [facility], Pcp Primary Care Provider Napoleon Mejia Primary Care Provider [phone] [facility], Pcp Primary Care Provider Maria T grace Encounter Details Date Type Department Care Team Description 11/28/2017 Release of Information Medical Records [address] [place] [address] Abstract, Provider Social History Tobacco Use Types [...] on filedocumented in this encounter Care Teams Tire Bladder Maker Relationship Specialty Start Date End Date Robinson Howe MD [address] [place] [address] PCP - General Internal Medicine 11/03/14 04/13/20 Jesus Monterroso MD [address] [place] [address] PCP - General Internal Medicine 04/14/20 07/05/20 Abram Gardner MD [address] [place] [address] PCP - General Internal Medicine 07/06/20 12/24/20 Michael Gillette MD [address] [place] [address] PCP - General Internal Medicine 12/25/20 06/28/21 [facility], Pcp [address] [place], [place] [phone] PCP - General Internal Medicine 06/29/21 11/14/21 Napoleon Linda [address] [place] [address] PCP - General Internal Medicine 11/15/21 04/20/22 [facility], Pcp [address] [place] [address] PCP - General Internal Medicine 04/21/22 documented as of this encounter
--- OUTSIDE RECORDS SUMMARY | 2024-07-08 13:26 | XMS_ITS | Encounter Summary ---
Author Organization [facility] Address [address] [place] [address] Care Team Providers Care Guest Service Host Name Role Phone Robinson Howe MD Primary Care Provider [phone] Jesus Monterroso MD Primary Care Provider Abram Flores MD Primary Care Provider Unavailab Michael Duvall MD Primary Care Provider Driss nguyen [facility], Pcp Primary Care Provider UnavailNapoleon White Primary Care Provider [phone] [facility], Pcp Primary Care Provider Unavailabl e Reason for Visit * Reason Comments E-prescribe Rx Request Encounter Details Date Type Department Care Team Description 05/25/2019 Refill Adult Medicine [address] [address] Margarita Fox PA-C [address] [place] [address] E-prescribe Rx Request Social History Tobacco Use [...] N/A Patients current insurance carrier is: Payor: [facility] M[facility] / Plan: HMO $0 [facility] [id number] / Product Type: HMO [id number] documented in this encounter Plan of Treatment Not on file documented as of this encounter Visit Diagnoses Not on filedocumented in this encounter Care Teams Guest Service Host Relationship Specialty Start Date End Date Robinson Howe MD [address] [place] [address] PCP - General Internal Medicine 11/03/14 04/13/20 Jesus Monterroso MD [address] [place] [address] PCP - General Internal Medicine 04/14/20 07/05/20 Abram Gardner MD [address] [place], [place] [phone] PCP - General Internal Medicine 07/06/20 12/24/20 Michael Gillette MD [address] [place] [address] PCP - General Internal Medicine 12/25/20 06/28/21 [facility], Pcp [address] [place], [place] [phone] PCP - General Internal Medicine 06/29/21 11/14/21 Napoleon Linda [address] [place] [address] PCP - General Internal Medicine 11/15/21 04/20/22 [facility], Pcp [address] [place] [address] PCP - General Internal Medicine 04/21/22 documented as of this encounter
--- OUTSIDE RECORDS SUMMARY | 2024-07-08 13:26 | XMS_ITS | Encounter Summary ---
Author Organization [facility] Address [address] [place] [address] Care Team Providers Care Us Administrative Law Judge Name Role Phone Robinson Howe MD Primary Care Provider + [phone] Jesus Monterroso MD Primary Care Provider Abram Flores MD Primary Care Provider Michael Hinojosa MD Primary Care Provider Driss nguyen [facility], Pcp Primary Care Provider Napoleon Mejia Primary Care Provider [phone] [facility], Pcp Primary Care Provider Maria T grace Encounter Details Date Type Department Care Team Description 07/12/2018 Orders Only Allergy [place] [address] [place] [address] Social History Tobacco Use Types [...] on filedocumented in this encounter Care Teams Us Administrative Law Judge Relationship Specialty Start Date End Date Robinson Howe MD [address] [place] [address]32 PCP - General Internal Medicine 11/03/14 04/13/20 Jesus Monterroso MD [address] [place] [address] 77171 PCP - General Internal Medicine 04/14/20 07/05/20 Abram Gardner MD [address] [place] [address] 80303 PCP - General Internal Medicine 07/06/20 12/24/20 Michael Gillette MD [address] [place] [address] 72838 PCP - General Internal Medicine 12/25/20 06/28/21 [facility], Pcp [address] [place], [place] [phone] PCP - General Internal Medicine 06/29/21 11/14/21 Napoleon Linda [address] [place] [address] PCP - General Internal Medicine 11/15/21 04/20/22 [facility], Pcp [address] [place] [address] 69378 PCP - General Internal Medicine 04/21/22 documented as of this encounter
--- OUTSIDE RECORDS SUMMARY | 2024-07-08 13:26 | XMS_ITS | Encounter Summary ---
Author Organization [facility] Address [address] [place] [address] Care Team Providers Care Thread Puller Name Role Phone Abram Gardner MD Primary Care Provider Unavailab Michael Duvall MD [facility] Primary [facility] Provider Napoleon Mejia Primary Care Provider [phone] [facility], Pcp Primary Care Provider Maria T grace Encounter Details Date Type Department Care Team Description 11/06/2020 Refill Adult [address] [address] Abram Gardner MD Social History Tobacco Use [...] on filedocumented in this encounter Care Teams Thread Puller Relationship Specialty Start Date End Date Abram Gardner MD PCP - General Internal Medicine 07/06/20 12/24/20 Michael Gillette MD PCP - General Internal Medicine 12/25/20 06/28/21 [facility] Pcp PCP - General Internal Medicine 06/29/21 11/14/21 Napoleon Linda [address] [place] [address] PCP - General Internal Medicine 11/15/21 04/20/22 [facility], Pcp PCP - General Internal Medicine 04/21/22 documented as of this encounter
--- OUTSIDE RECORDS SUMMARY | 2024-07-08 13:26 | XMS_ITS | Encounter Summary ---
Author Organization [facility] Address [address] [place] [address] Care Team Providers Care Jig Filler Name Role Phone Robinson Howe MD Primary Care Provider + [phone] Jesus Monterroso MD Primary Care Provider Abram Flores MD Primary Care Provider Michael Hinojosa MD Primary Care Provider Driss nguyen [facility], Pcp Primary Care Provider Napoleon Mejia Primary Care Provider [phone] [facility], Pcp Primary Care Provider Maria T grace Encounter Details Date Type Department Care Team Description 03/02/2017 Business Doc Medical Records [address] [place] [address] Abstract, Provider Social History Tobacco Use Types [...] on filedocumented in this encounter Care Teams Jig Filler Relationship Specialty Start Date End Date Robinson Howe MD [address] [place] [address] PCP - General Internal Medicine 11/03/14 04/13/20 Jesus Monterroso MD [address] [place] [address] 49954 PCP - General Internal Medicine 04/14/20 07/05/20 Abram Gardner MD [address] [place] [address] 11032 PCP - General Internal Medicine 07/06/20 12/24/20 Michael Gillette MD [address] [place] [address] 74102 PCP - General Internal Medicine 12/25/20 06/28/21 [facility] Pcp [address] [place], [place] [phone] PCP - General Internal Medicine 06/29/21 11/14/21 Napoleon Linda [address] [place] [address] PCP - General Internal Medicine 11/15/21 04/20/22 [facility], Pcp [address] [place] [address] PCP - General Internal Medicine 04/21/22 documented as of this encounter
--- OUTSIDE RECORDS SUMMARY | 2024-07-08 13:26 | XMS_ITS | Encounter Summary ---
Author Organization [facility] [place] [facility] Address [address] [place] [address] Care Team Providers Care Block Breaker Name Role Phone Abram Gardner MD Primary Care Provider Michael Hinojosa MD Primary Care Provider Driss nguyen [facility], Pcp Primary Care Provider Napoleon Mejia Primary Care Provider [phone] [facility] Pcp Primary Care Provider Unavailabl e Reason for Visit * Reason Comments E-prescribe Rx Request Encounter Details Date Type Department Care Team Description 10/27/2020 Refill Adult Medicine [address] [address] Jerod Daniel PA-C [address] [place] [address] 11693 E-prescribe Rx Request Social History Tobacco Use [...] N/A Patients current insurance carrier is: Payor: [facility] MCR / Plan: O $0 [facility] [id number] / Product Type: HMO [id number] documented in this encounter Plan of Treatment [...] exacerbation documented in this encounter Care Teams Block Breaker Relationship Specialty Start Date End Date Abram Gardner MD PCP - General Internal Medicine 07/06/20 12/24/20 Michael Gillette MD PCP - General Internal Medicine 12/25/20 06/28/21 [facility] Pcp PCP - General Internal Medicine 06/29/21 11/14/21 Napoleon Linda [address] [place] [address] PCP - General Internal Medicine 11/15/21 04/20/22 [facility], Pcp PCP - General Internal Medicine 04/21/22 documented as of this encounter
--- OUTSIDE RECORDS SUMMARY | 2024-07-08 13:26 | XMS_ITS | Encounter Summary ---
Author Organization [facility] Address [address] [place] [address] Care Team Providers Care Keel Press Operator Name Role Phone Robinson Howe MD Primary Care Provider + [phone] Jesus Monterroso MD Primary Care Provider Abram Flores MD Primary Care Provider Michael Hinojosa MD Primary Care Provider Driss nguyen [facility], Pcp Primary Care Provider Napoleon Mejia Primary Care Provider [phone] [facility], Pcp Primary Care Provider Maria T grace Encounter Details Date Type Department Care Team Description 08/08/2017 Business Doc Medical Records [address] [place] [address] 90783 Abstract, Provider Social History Tobacco Use Types [...] on filedocumented in this encounter Care Teams Keel Press Operator Relationship Specialty Start Date End Date Robinson Howe MD [address] [place] [address] PCP - General Internal Medicine 11/03/14 04/13/20 Jesus Monterroso MD [address] [place] [address]89 PCP - General Internal Medicine 04/14/20 07/05/20 Abram Gardner MD [address] [place] [address] PCP - General Internal Medicine 07/06/20 12/24/20 Michael Gillette MD [address] [place] [address] 78529 PCP - General Internal Medicine 12/25/20 06/28/21 [facility], Pcp [address] [place], [place] [phone] PCP - General Internal Medicine 06/29/21 11/14/21 Napoleon Linda [address] [place] [address] PCP - General Internal Medicine 11/15/21 04/20/22 [facility], Pcp [address] [place] [address] 24633 PCP - General Internal Medicine 04/21/22 documented as of this encounter
--- OUTSIDE RECORDS SUMMARY | 2024-07-08 13:26 | XMS_ITS | Encounter Summary ---
Author Organization [facility] Address [address] [place] [address] Care Team Providers Care Loom Fixer Supervisor Name Role Phone Robinson Howe MD Primary Care Provider + [phone] Jesus Monterroso MD Primary Care Provider Abram Flores MD Primary Care Provider Unavailab Michael Duvall MD Primary Care Provider Mariaelenavagabriel nguyen [facility], Pcp Primary Care Provider Unavailabl e Napoleon Linda Primary Care Provider [phone] [facility], Pcp Primary Care Provider Unavailabl e Reason for Visit * Reason Onset Date Comments Faxed Order 09/26/2017 Encounter Details Date Type Department Care Team Description 09/26/2017 Telephone Adult [address] [phone] Robinson Howe MD [address] [place] [address] [phone] Faxed Order Social History Tobacco Use Types [...] Alexandra - 09/26/2017 10:[address] [facility], Referral Form, documented in this encounter Plan of Treatment Not on file documented as of this encounter Visit Diagnoses Not on filedocumented in this encounter Care Teams Loom Fixer Supervisor Relationship Specialty Start Date End Date Robinson Howe MD [address] [place] [address] PCP - General Internal Medicine 11/03/14 04/13/20 Jesus Monterroso MD [address] [place] [address] PCP - General Internal Medicine 04/14/20 07/05/20 Abram Gardner MD [address] [place] [address] PCP - General Internal Medicine 07/06/20 12/24/20 Michael Gillette MD [address] [place] [address] PCP - General Internal Medicine 12/25/20 06/28/21 [facility], Pcp [address] [place] [address] PCP - General Internal Medicine 06/29/21 11/14/21 Napoleon Linda [address] [place] [address] PCP - General Internal Medicine 11/15/21 04/20/22 [facility], Pcp [address] [place], [place] [phone] PCP - General Internal Medicine 04/21/22 documented as of this encounter
--- OUTSIDE RECORDS SUMMARY | 2024-07-08 13:26 | XMS_ITS | Encounter Summary ---
Author Organization [facility] Address [address] [place] [address] Care Team Providers Care Senior Electrical Controls Engineer Name Role Phone Robinson Howe MD Primary Care Provider + [phone] Jesus Monterroso MD Primary Care Provider Abram Flores MD Primary Care Provider Michael Hinojosa MD Primary Care Provider Driss nguyen [facility], Pcp Primary Care Provider Napoleon Mejia Primary Care Provider [phone] [facility], Pcp Primary Care Provider Maria T grace Encounter Details Date Type Department Care Team Description 11/12/2015 Business Doc Medical Records [address] [place] [address] Abstract, Provider Social History Tobacco Use Types [...] filedocumented in this encounter Care Teams Senior Electrical Controls Engineer Relationship Specialty Start Date End Date Robinson Howe MD [address] [place] [address] PCP - General Internal Medicine 11/03/14 04/13/20 Jesus Monterroso MD [address] [place] [address] PCP - General Internal Medicine 04/14/20 07/05/20 Abram Gardner MD [address] [place] [address] 6[address] PCP - General Internal Medicine 07/06/20 12/24/20 Michael Gillette MD [address] [place] [address] 12570 PCP - General Internal Medicine 12/25/20 06/28/21 [facility], Pcp [address] [place], [place] [phone] PCP - General Internal Medicine 06/29/21 11/14/21 Napoleon Linda [address] [place] [address] PCP - General Internal Medicine 11/15/21 04/20/22 [facility], Pcp [address] [place] [address] 72086 PCP - General Internal Medicine 04/21/22 documented as of this encounter
--- OUTSIDE RECORDS SUMMARY | 2024-07-08 13:26 | XMS_ITS | Encounter Summary ---
Author Organization [facility] Address [address] [place] [address] Care Team Providers Care Precise Winder Name Role Phone Robinson Howe MD Primary Care Provider + [phone] Jesus Monterroso MD Primary Care Provider Abram Flores MD Primary Care Provider Michael Hinojosa MD Primary Care Provider Driss nguyen [facility], Pcp Primary Care Provider Napoleon Mejia Primary Care Provider [phone] [facility], Pcp Primary Care Provider Maria T grace Encounter Details Date Type Department Care Team Description 10/30/2015 Business Doc Medical Records [address] [place] [address] Abstract, Provider Social History Tobacco Use Types [...] on filedocumented in this encounter Care Teams Precise Winder Relationship Specialty Start Date End Date Robinson Howe MD [address] [place] [address] PCP - General Internal Medicine 11/03/14 04/13/20 Jesus Monterroso MD [address] [place] [address] PCP - General Internal Medicine 04/14/20 07/05/20 Abram Gardner MD [address] [place] [address] 24037 PCP - General Internal Medicine 07/06/20 12/24/20 Michael Gillette MD [address] [place] [address] 8[address]86 PCP - General Internal Medicine 12/25/20 06/28/21 [facility], Pcp [address] [place], [place] [phone] PCP - General Internal Medicine 06/29/21 11/14/21 Napoleon Linda [address] [place] [address] PCP - General Internal Medicine 11/15/21 04/20/22 [facility], Pcp [address] [place] [address] PCP - General Internal Medicine 04/21/22 documented as of this encounter
--- OUTSIDE RECORDS SUMMARY | 2024-07-08 13:26 | XMS_ITS | Encounter Summary ---
Author Organization [facility] Address [address] [place] [address] Care Team Providers Care Crime Prevention Worker Name Role Phone Abram Gardner MD Primary Care Provider Michael Hinojosa MD Primary Care Provider Driss nguyen [facility], Pcp Primary Care Provider Napoleon Mejia Primary Care Provider [phone] [facility], Pcp Primary Care Provider Maria T grace Encounter Details Date Type Department Care Team Description 08/05/2020 Refill Hypertension - [place] [address] [place] [address] Louisa Hart, Pharm.D Social History Tobacco Use [...] on filedocumented in this encounter Care Teams Crime Prevention Worker Relationship Specialty Start Date End Date Abram Gardner MD PCP - General Internal Medicine 07/06/20 12/24/20 Michael Gillette MD PCP - General Internal Medicine 12/25/20 06/28/21 [facility] Pcp PCP - General Internal Medicine 06/29/21 11/14/21 Napoleon Linda [address] [place] [address] PCP - General Internal Medicine 11/15/21 04/20/22 [facility], Pcp PCP - General Internal Medicine 04/21/22 documented as of this encounter
--- OUTSIDE RECORDS SUMMARY | 2024-07-08 13:26 | XMS_ITS | Encounter Summary ---
Author Organization [facility] Address [address] [place] [address] Care Team Providers Care [employer] Special Education Teacher Name Role Phone Robinson Howe MD Primary Care Provider + [phone] Jesus Monterroso MD Primary Care Provider Abram Flores MD Primary Care Provider Unavailab Michael Duvall MD Primary Care Provider Driss nguyen [facility], Pcp Primary Care Provider Unavailabl Napoleon Ramirez Primary Care Provider [phone] [facility], Pcp Primary Care Provider Unavailabl e Reason for Visit * Reason Onset Date Comments fatigue/malaise 10/01/2019 Encounter Details Date Type Department Care Team Description 10/01/2019 Telephone Adult [address] [phone] Robinson Howe MD [address] [place] [address] [phone] fatigue/malaise Social History Tobacco Use Types Packs/Day [...] - 10/01/2019 4:52 PM EDT Will order Jeord Daniel PA-C * Telephone Encounter - Nakia Grayson R.N. - 10/01/2019 4:46 PM EDT Spoke with the patient her next appt is 10/21 She is now very tired with bone achiness and thinks her thyroid is off Was seen in [facility] last week and tested negative Asking [...] abroad? NO ??? Have you been to [place] or in contact with anyone who has recently been in [place]? NO If pain or injury related was it due to an accident at work or from a motor vehicle accident? NO If yes, gather 3rd democrat insurance information Date of accident/Injury: How long has patient had these symptoms?: 3-4 DAYS PCP: Robinson Howe Payor: [facility] MCR / Plan: HMO $0 [facility] [id number] / Product Type: HMO [id number] documented in this encounter Plan of Treatment Not on file documented as of this encounter Results * 25 HYDROXY INCLUDES FRACTIONS IF PERFORMED (10/02/2019 1:46 PM EDT) VITAMIN D, 25-HYDROXY 43 30 - 80 ng/mL 10/02/2019 5:24 PM EDT [facility] 10/02/2019 1:46 PM EDT 10/02/2019 1:50 PM EDT Jerod Daniel PA-C LAB [facility] * (ABNORMAL) CBC (AUTO DIFF PLATELET) (10/02/2019 1:46 PM EDT) Pathologist [facility] [place] [facility] WHITE BLOOD COUNT 10.8 4.8 - 10.8 x10-3/uL 10/02/2019 5:35 PM EDT [facility] RED BLOOD COUNT 4.4 3.8 - 4.8 [...] 4.00 uIU/ml 10/02/2019 5:25 PM EDT [facility] 10/02/2019 1:46 PM EDT 10/02/2019 1:50 PM EDT Jerod Daniel PA-C LAB Performing Organization Address [facility]/State/ZIP Co de Phone Number [facility] * MICROALBUMIN/CREATININE, URINE (10/02/2019 1:46 PM EDT) CREATININE, RANDOM URINE 95 mg/dL 10/02/2019 5:33 PM EDT [facility] MICROALBUMIN, RANDOM 27.0 0.0 - 29.0 mg/L 10/02/2019 5:42 PM EDT [facility] MICROALB/CRE RATIO RANDOM 28.4 0.0 - 30.0 mg/G 10/02/2019 5:42 PM EDT [facility] 10/02/2019 1:46 PM EDT 10/02/2019 1:50 PM EDT Jerod Daniel PA-C LAB Performing Organization Address [facility]/ZIP Co de Phone Number [facility] * COMPREHENSIVE METABOLIC PANEL (10/02/2019 1:46 PM EDT) GLUCOSE 90 70 - 100 mg/dL 10/02/2019 5:23 PM EDT [facility] Comment:Reference range appl icable to fasting specimens only Blood Urea Nitrogen 17 5 - 25 mg/dL 10/02/2019 5:23 PM EDT [facility] CREAT 0.81 0.5 - 1.1 mg/dL 10/02/2019 5:23 PM EDT [facility] GLOMERULAR FILTRATION RATE > 60 10/02/2019 5:23 PM EDT [facility] Comment: If patient is -Peruvian, multiply result by 1.21 Chronic Kidney Disease: < 60 ml/min/1.73 square meters Kidney Failure: < 15 ml/min/1.73 square meters NA 141 135 - 145 mEq/L 10/02/2019 5:23 PM EDT [facility] K 4.0 3.5 - 5.5 mmol/L 10/02/2019 [...] PM EDT Jerod Daniel PA-C LAB [facility] * HEMOGLOBIN A1C (10/02/2019 1:46 PM EDT) GLYCATED HEMOGLOBIN A1C 6.4 <6.5 % 10/02/2019 7:43 PM EDT [facility] ESTIMATED AVERAGE GLUCOSE 137 mg/dL 10/02/2019 7:43 PM EDT [facility] 10/02/2019 1:46 PM EDT 10/02/2019 1:50 PM EDT Jerod Daniel PA-C LAB Performing Organization Address City/[facility]/ZIP Co de Phone Number [facility] * (ABNORMAL) FOLIC ACID (10/02/2019 1:46 PM EDT) FOLATE > 20.0(H) 2.8 - 17.0 ng/ml 10/02/2019 5:46 PM EDT [facility] 10/02/2019 1:46 PM EDT 10/02/2019 1:50 PM EDT Jerod Daniel PA-C LAB Performing Organization Address City/[facility]/ZIP Co de Phone Number [facility] * (ABNORMAL) VITAMIN B-12, ASSAY (10/02/2019 1:46 PM EDT) VITAMIN B12 1593(H) 250 - 900 pg/mL 10/02/2019 5:46 PM EDT [facility] 10/02/2019 1:46 PM EDT 10/02/2019 1:50 PM EDT Jerod Daniel PA-C LAB [facility] documented in this encounter Visit Diagnoses Diagnosis Type 2 diabetes mellitus with diabetic neuropathy, without long-term current use of insulin (HCC)- Primary documented in this encounter Care Teams [employer] Special Education Teacher Relationship Specialty Start Date End Date Robinson Howe MD [address] [place] [address] PCP - General Internal Medicine 11/03/14 04/13/20 Jesus Monterroso MD [address] [place] [address] PCP - General Internal Medicine 04/14/20 07/05/20 Abram Gardner MD [address] [place] [address] PCP - General Internal Medicine 07/06/20 12/24/20 Michael Gillette MD [address] [place] [address] PCP - General Internal Medicine 12/25/20 06/28/21 [facility], Pcp [address] [place] [address] PCP - General Internal Medicine 06/29/21 11/14/21 Napoleon Linda [address] [place] [address] PCP - General Internal Medicine 11/15/21 04/20/22 [facility], Pcp [address] [place] [address] PCP - General Internal Medicine 04/21/22 documented as of this encounter
--- OUTSIDE RECORDS SUMMARY | 2024-07-08 13:26 | XMS_ITS | Encounter Summary ---
Author Organization [facility] Address [address] [place] [address] Care Team Providers Care Facilities Coordinator Name Role Phone Robinson Howe MD Primary Care Provider [phone] Jesus Monterroso MD Primary Care Provider Abram Flores MD Primary Care Provider Michael Hinojosa MD Primary Care Provider Driss nguyen [facility], Pcp Primary Care Provider Napoleon Mejia Primary Care Provider [phone] [facility], Pcp Primary Care Provider Maria T grace Encounter Details Date Type Department Care Team Description 11/07/2016 Business Doc Medical Records [address] [place] [address] Abstract, Provider Social History Tobacco Use Types [...] on filedocumented in this encounter Care Teams Facilities Coordinator Relationship Specialty Start Date End Date Robinson Howe MD [address] [place] [address] PCP - General Internal Medicine 11/03/14 04/13/20 Jesus Monterroso MD [address] [place] [address] PCP - General Internal Medicine 04/14/20 07/05/20 Abram Gardner MD [address] [place] [address] PCP - General Internal Medicine 07/06/20 12/24/20 Michael Gillette MD [address] [place] [address] 19394 PCP - General Internal Medicine 12/25/20 06/28/21 [facility], Pcp [address] [place], [place] [phone] PCP - General Internal Medicine 06/29/21 11/14/21 Napoleon Linda [address] [place] [address] PCP - General Internal Medicine 11/15/21 04/20/22 [facility], Pcp [address] [place] [address] PCP - General Internal Medicine 04/21/22 documented as of this encounter
--- OUTSIDE RECORDS SUMMARY | 2024-07-08 13:26 | XMS_ITS | Encounter Summary ---
Author Organization [place] [facility] Address [address] [place] [address] Care Team Providers Care Geologist Petroleum Name Role Phone Robinson Howe MD Primary Care Provider + [phone] Jesus Monterroso MD Primary Care Provider Abram Flores MD Primary Care Provider Unavailab Michael Duvall MD Primary Care Provider Driss nguyen [facility], Pcp Primary Care Provider Unavailabl Napoleon Ramirez Primary Care Provider [phone] [facility], Pcp Primary Care Provider Unavailabl e Reason for Visit * Reason Comments E-prescribe Rx Request Encounter Details Date Type Department Care Team Description 03/15/2017 Refill Adult Medicine [address] [address] Jerod Daniel PA-C [address] [place] [address] [phone] E-prescribe Rx Request Social History Tobacco Use [...] / Plan: [place] / Product Type: MEDICARE [id number] documented in this encounter Plan of Treatment [...] exacerbation documented in this encounter Care Teams Geologist Petroleum Relationship Specialty Start Date End Date Robinson Howe MD [address] [place] [address] PCP - General Internal Medicine 11/03/14 04/13/20 Jesus Monterroso MD [address] [place] [address] 37867 PCP - General Internal Medicine 04/14/20 07/05/20 Abram Gardner MD [address] [place] [address] 39033 PCP - General Internal Medicine 07/06/20 12/24/20 Michael Gillette MD [address] [place] [address] PCP - General Internal Medicine 12/25/20 06/28/21 [facility], Pcp [address] [place], [place] [phone] PCP - General Internal Medicine 06/29/21 11/14/21 Napoleon Linda [address] [place] [address] PCP - General Internal Medicine 11/15/21 04/20/22 [facility], Pcp [address] [place] [address] PCP - General Internal Medicine 04/21/22 documented as of this encounter
--- OUTSIDE RECORDS SUMMARY | 2024-07-08 13:26 | XMS_ITS | Encounter Summary ---
Author Organization [facility] Address [address] [place] [address] Care Team Providers Care Dental Coordinator Name Role Phone Robinson Howe MD Primary Care Provider + [phone] Jesus Monterroso MD Primary Care Provider Abram Flores MD Primary Care Provider Michael Hinojosa MD Primary Care Provider Driss nguyen [facility], Pcp Primary Care Provider Napoleon Mejia Primary Care Provider [facility], Pcp Primary Care Provider Maria T grace Encounter Details Date Type Department Care Team Description 08/07/2016 Release of Information Medical Records [address] [place] [id number] Abstract, Provider Social History Tobacco Use Types [...] filedocumented in this encounter Care Teams Dental Coordinator Relationship Specialty Start Date End Date Robinson Howe MD [address] [place] [address] PCP - General Internal Medicine 11/03/14 04/13/20 Jesus Monterroso MD [address] [place] [address] PCP - General Internal Medicine 04/14/20 07/05/20 Abram Gardner MD [address] [place] [address] PCP - General Internal Medicine 07/06/20 12/24/20 Michael Gillette MD [address] [place] [address] PCP - General Internal Medicine 12/25/20 06/28/21 [facility], Pcp [address] [place], [place] [phone] PCP - General Internal Medicine 06/29/21 11/14/21 Napoleon Linda [address] [place] [address] PCP - General Internal Medicine 11/15/21 04/20/22 [facility], Pcp [address] [place] [address] PCP - General Internal Medicine 04/21/22 documented as of this encounter
--- OUTSIDE RECORDS SUMMARY | 2024-07-08 13:26 | XMS_ITS | Encounter Summary ---
Author Organization [facility] Address [address] [place] [address] Care Team Providers Care Academic Coach Name Role Phone Ruddy Cruz MD Primary Care Provider Unavail able Robinson Howe MD Primary Care Provider + [phone] Jesus Monterroso MD Primary Care Provider Abram Flores MD Primary Care Provider Unavailab Michael Duvall MD Primary Care Provider Unavai patrick [facility], Pcp Primary Care Provider Unavailabl Napoleon Ramirez Primary Care Provider [phone] [facility], Pcp Primary Care Provider Unavailabl e Reason for Visit * Reason Onset Date Comments Faxed Order 06/09/2014 Encounter Details Date Type Department Care Team Description 06/09/2014 Telephone Adult Medicine [address] [address] Karlos Edwards MD Faxed Order Social History [...] filedocumented in this encounter Care Teams Academic Coach Relationship Specialty Start Date End Date Ruddy Cruz MD PCP - General Internal Medicine 12/19/13 11/02/14 Robinson Howe MD [address] [place] [address] PCP - General Internal Medicine 11/03/14 04/13/20 Jesus Monterroso MD [address] [place] [address] PCP - General Internal Medicine 04/14/20 07/05/20 Abram Gardner MD [address] [place] [address] PCP - General Internal Medicine 07/06/20 12/24/20 Michael Gillette MD [address] [place] [address] PCP - General Internal Medicine 12/25/20 06/28/21 [facility], Pcp [address] [place] [address] PCP - General Internal Medicine 06/29/21 11/14/21 Napoleon Linda [address] [place] [address] PCP - General Internal Medicine 11/15/21 04/20/22 [facility], Pcp [address] [place] [address] PCP - General Internal Medicine 04/21/22 documented as of this encounter
--- OUTSIDE RECORDS SUMMARY | 2024-07-08 13:27 | XMS_ITS | Encounter Summary ---
Author Organization [facility] Address [address] [place] [address] Care Team Providers Care Import Manager Name Role Phone Ruddy Cruz MD Primary Care Provider Unavail able Robinson Howe MD Primary Care Provider + [phone] Jesus Monterroso MD Primary Care Provider Abram Flores MD Primary Care Provider Unavailab Michael Duvall MD Primary Care Provider Mariaelenavagabriel nguyen [facility], Pcp Primary Care Provider UnavailNapoleon White Primary Care Provider [phone] [facility], Pcp Primary Care Provider Unavailabl e Encounter Details Date Type Department Care Team Description 05/02/2014 Transfer Records Medical Records [address] [place] [id number] [place] [address] [id number] Social History Tobacco Use Types Packs/Day Years [...] on filedocumented in this encounter Care Teams Import Manager Relationship Specialty Start Date End Date Ruddy Cruz MD PCP - General Internal Medicine 12/19/13 11/02/14 Robinson Howe MD [address] [place] [address] PCP - General Internal Medicine 11/03/14 04/13/20 Jesus Monterroso MD [address] [place] [address] PCP - General Internal Medicine 04/14/20 07/05/20 Abram Gardner MD [address] [place] [address] PCP - General Internal Medicine 07/06/20 12/24/20 Michael Gillette MD [address] [place] [address] PCP - General Internal Medicine 12/25/20 06/28/21 [facility], Pcp [address] [place] [address] PCP - General Internal Medicine 06/29/21 11/14/21 Napoleon Linda [address] [place] [address] PCP - General Internal Medicine 11/15/21 04/20/22 [facility], Pcp [address] [place] [address] PCP - General Internal Medicine 04/21/22 documented as of this encounter
--- OUTSIDE RECORDS SUMMARY | 2024-07-08 13:27 | XMS_ITS | Encounter Summary ---
Author Organization [facility] Address [address] [place] [address] Care Team Providers Care Utilization Engineer Name Role Phone Louisa Machuca MD Primary Care Provider Unavailable Ruddy Cruz MD Primary Care Provider Unavail able Robinson Howe MD Primary Care Provider + [phone] Jesus Monterroso MD Primary Care Provider Abram Flores MD Primary Care Provider Unavailab Michael Duvall MD Primary Care Provider Driss nguyen [facility], Pcp Primary Care Provider UnavailNapoleon White Primary Care Provider [phone] [facility], Pcp Primary Care Provider Maria T grace Encounter Details Date Type Department Care Team Description 11/20/2013 Business Doc Medical Records [address] [place] [address] Abstract, Provider Social History Tobacco Use Types [...] on filedocumented in this encounter Care Teams Utilization Engineer Relationship Specialty Start Date End Date Louisa Machuca MD PCP - General Internal Medicine 07/17/13 Ruddy Cruz MD PCP - General Internal Medicine 12/19/13 11/02/14 Robinson Howe MD [address] [place] [address] PCP - General Internal Medicine 11/03/14 04/13/20 Jesus Monterroso MD [address] [place] [address] PCP - General Internal Medicine 04/14/20 07/05/20 Abram Gardner MD [address] [place] [address] PCP - General Internal Medicine 07/06/20 12/24/20 Michael Gillette MD [address] [place] [address] PCP - General Internal Medicine 12/25/20 06/28/21 [facility], Pcp [address] [place] [address] PCP - General Internal Medicine 06/29/21 11/14/21 Napoleon Linda [address] [place] [address] PCP - General Internal Medicine 11/15/21 04/20/22 [facility], Pcp [address] [place] [address] PCP - General Internal Medicine 04/21/22 documented as of this encounter
--- OUTSIDE RECORDS SUMMARY | 2024-07-08 13:27 | XMS_ITS | Encounter Summary ---
Author Organization [facility] Address [address] [place] [address] Care Team Providers Care Medical Social Consultant Name Role Phone Ruddy Cruz MD Primary Care Provider Unavail able Robinson Howe MD Primary Care Provider + [phone] Jesus Monterroso MD Primary Care Provider Abram Flores MD Primary Care Provider Unavailab Michael Duvall MD Primary Care Provider Mariaelenavagabriel nguyen [facility], Pcp Primary Care Provider UnavailNapoleon White Primary Care Provider [phone] [facility], Pcp Primary Care Provider Unavailabl e Encounter Details Date Type Department Care Team Description 08/25/2014 Business Doc Medical Records [address] [place] [address] Abstract, Provider Social History Tobacco Use Types [...] on filedocumented in this encounter Care Teams Medical Social Consultant Relationship Specialty Start Date End Date Ruddy Cruz MD PCP - General Internal Medicine 12/19/13 11/02/14 Robinson Howe MD [address] [place] [address] [phone] PCP - General Internal Medicine 11/03/14 04/13/20 Jesus Monterroso MD [address] [place] [address] PCP - General Internal Medicine 04/14/20 07/05/20 Abram Gardner MD [address] [place] [address] PCP - General Internal Medicine 07/06/20 12/24/20 Michael Gillette MD [address] [place] [address] PCP - General Internal Medicine 12/25/20 06/28/21 [facility], Pcp [address] [place] [address] PCP - General Internal Medicine 06/29/21 11/14/21 Napoleon Linda [address] [place], [place] [address] PCP - General Internal Medicine 11/15/21 04/20/22 [facility], Pcp [address] [place] [address] PCP - General Internal Medicine 04/21/22 documented as of this encounter
--- OUTSIDE RECORDS SUMMARY | 2024-07-08 13:27 | XMS_ITS | Encounter Summary ---
Author Organization [facility] Address [address] [place] [address] Care Team Providers Care Cotton Machine Operator Name Role Phone Robinson Howe MD Primary Care Provider + [phone] Jesus Monterroso MD Primary Care Provider Abram Flores MD Primary Care Provider Unavailab Michael Duvall MD Primary Care Provider Unavagabriel nguyen [facility], Pcp Primary Care Provider UnavailNapoleon White Primary Care Provider [phone] [facility], Pcp Primary Care Provider Unavailguido e Encounter Details Date Type Department Care Team Description 02/08/2018 Orders Only Medical Records [address] [place] [address] Terrence Corral MD [address] [place] [id number] Social History Tobacco Use Types Packs/Day [...] filedocumented in this encounter Care Teams Cotton Machine Operator Relationship Specialty Start Date End Date Robinson Howe MD [address] [place] [address] PCP - General Internal Medicine 11/03/14 04/13/20 Jesus Monterroso MD [address] [place] [address] PCP - General Internal Medicine 04/14/20 07/05/20 Abram Gardner MD [address] [place] [address] PCP - General Internal Medicine 07/06/20 12/24/20 Michale Gillette MD [address] [place] [address] PCP - General Internal Medicine 12/25/20 06/28/21 [facility], Pcp [address] [place] [address] PCP - General Internal Medicine 06/29/21 11/14/21 Napoleon Linda [address] [place] [address] PCP - General Internal Medicine 11/15/21 04/20/22 [facility], Pcp [address] [place] [address] PCP - General Internal Medicine 04/21/22 documented as of this encounter
--- OUTSIDE RECORDS SUMMARY | 2024-07-08 13:27 | XMS_ITS | Encounter Summary ---
Author Organization [facility] Address [address] [place] [address] Care Team Providers Care Registered Medical Assistant Name Role Phone Ruddy Cruz MD Primary Care Provider Unavail able Robinson Howe MD Primary Care Provider + [phone] Jesus Monterroso MD Primary Care Provider Abram Flores MD Primary Care Provider Unavailab Michael Duvall MD Primary Care Provider Mariaelenavagabriel nguyen [facility], Pcp Primary Care Provider UnavailNapoleon White Primary Care Provider [phone] [facility], Pcp Primary Care Provider Unavailabl e Encounter Details Date Type Department Care Team Description 07/24/2014 Business Doc Medical Records [address] [place] [address] Abstract, Provider Social History Tobacco Use Types [...] on filedocumented in this encounter Care Teams Registered Medical Assistant Relationship Specialty Start Date End Date Ruddy Cruz MD PCP - General Internal Medicine 12/19/13 11/02/14 Robinson Howe MD [address] [place] [address] [phone] PCP - General Internal Medicine 11/03/14 04/13/20 Jesus Monterroso MD [address] [place] [address] PCP - General Internal Medicine 04/14/20 07/05/20 Abram Gardner MD [address] [place] [address] PCP - General Internal Medicine 07/06/20 12/24/20 Michael Gillette MD [address] [place] [address] PCP - General Internal Medicine 12/25/20 06/28/21 [facility], Pcp [address] [place] [address] PCP - General Internal Medicine 06/29/21 11/14/21 Napoleon Linda [address] [place], [place] [phone] PCP - General Internal Medicine 11/15/21 04/20/22 [facility], Pcp [address] [place] [address] PCP - General Internal Medicine 04/21/22 documented as of this encounter
--- OUTSIDE RECORDS SUMMARY | 2024-07-08 13:27 | XMS_ITS | Encounter Summary ---
Author Organization [facility] Address [address] [place] [address] Care Team Providers Care Quality Control Microbiologist Name Role Phone Ruddy Cruz MD Primary Care Provider Unavail able Robinson Howe MD Primary Care Provider + [phone] Jesus Monterrsoo MD Primary Care Provider Abram Flores MD Primary Care Provider Unavailab Michael Duvall MD Primary Care Provider Driss nguyen [facility], Pcp Primary Care Provider UnavailNapoleon White Primary Care Provider [phone] [facility], Pcp Primary Care Provider Unavailguido e Encounter Details Date Type Department Care Team Description 03/25/2014 Home Health Certification Medical Records [address] [place] [address] Abstract, Provider Social History Tobacco Use Types [...] on filedocumented in this encounter Care Teams Quality Control Microbiologist Relationship Specialty Start Date End Date Ruddy Cruz MD PCP - General Internal Medicine 12/19/13 11/02/14 Robinson Howe MD [address] [place] [address] [phone] PCP - General Internal Medicine 11/03/14 04/13/20 Jesus Monterroso MD [address] [place] [address] PCP - General Internal Medicine 04/14/20 07/05/20 Abram Gardner MD [address] [place] [address] PCP - General Internal Medicine 07/06/20 12/24/20 Michael Gillette MD [address] [place] [address] PCP - General Internal Medicine 12/25/20 06/28/21 [facility], Pcp [address] [place] [address] PCP - General Internal Medicine 06/29/21 11/14/21 Napoleon Linda [address] [place] [address] PCP - General Internal Medicine 11/15/21 04/20/22 [facility], Pcp [address] [place] [address] PCP - General Internal Medicine 04/21/22 documented as of this encounter
--- OUTSIDE RECORDS SUMMARY | 2024-07-08 13:27 | XMS_ITS | Encounter Summary ---
Author Organization [facility] Address [address] [place] [address] Care Team Providers Care Certified Teacher Assistant Name Role Phone Louisa Machuca MD Primary Care Provider Unavailable Ruddy Cruz MD Primary Care Provider Unavail able Robinson Howe MD Primary Care Provider + [phone] Jesus Monterroso MD Primary Care Provider Abram Flores MD Primary Care Provider Unavailab Michael Duvall MD Primary Care Provider Mariaelenavagabriel nguyen [facility], Pcp Primary Care Provider UnavailNapoleon White Primary Care Provider [phone] [facility], Pcp Primary Care Provider Unavailguido grace Encounter Details Date Type Department Care Team Description 10/23/2013 Orders Only OBGYN - [address] [address] Kate Mai MD Social History Tobacco Use [...] on filedocumented in this encounter Care Teams Certified Teacher Assistant Relationship Specialty Start Date End Date Louisa Machuca MD PCP - General Internal Medicine 07/17/13 Ruddy Cruz MD PCP - General Internal Medicine 12/19/13 11/02/14 Robinson Howe MD [address] [place] [address] PCP - General Internal Medicine 11/03/14 04/13/20 Jesus Monterroso MD [address] [place] [address] PCP - General Internal Medicine 04/14/20 07/05/20 Abram Gardner MD [address] [place], [place] [phone] PCP - General Internal Medicine 07/06/20 12/24/20 Michael Gillette MD [address] [place] [address] PCP - General Internal Medicine 12/25/20 06/28/21 [facility], Pcp [address] [place] [address] PCP - General Internal Medicine 06/29/21 11/14/21 Napoleon Linda [address] [place] [address] PCP - General Internal Medicine 11/15/21 04/20/22 [facility], Pcp [address] [place] [address] PCP - General Internal Medicine 04/21/22 documented as of this encounter
--- OUTSIDE RECORDS SUMMARY | 2024-07-08 13:27 | XMS_ITS | Encounter Summary ---
Author Organization [facility] Address [address] [place] [address] Care Team Providers Care Body Design Checker Name Role Phone Robinson Howe MD Primary Care Provider + [phone] Jesus Monterroso MD Primary Care Provider Abram Flores MD Primary Care Provider Unavailab Michael Duvall MD Primary Care Provider Driss nguyen [facility], Pcp Primary Care Provider Unavailabl Napoleon Ramirez Primary Care Provider [phone] [facility], Pcp Primary Care Provider Unavailabl e Reason for Visit * Reason Onset Date Comments Letter 02/02/2016 FYI... Pt will n eed SP translation. Encounter Details Date Type Department Care Team Description 02/02/2016 Telephone Adult Medicine [address] [phone] Robinson Howe MD [address] [place] [address] [phone] Letter (FYI... Pt will need SP translation.) [...] (GIANCARLO) who is with Pt who is nigerian speaking. Pt c/o right lower leg pain [...] able to ambulate with steady gate. 02/04/16 ([facility]) 9:00 AM 30 min Jerod Daniel PA-C [facility]/RIVKA Bowman Advised home care following the leg [...] nurse regarding the information below. Daughter speaks Bermudian. Please contact Kaleigh @ [phone]. * Telephone Encounter - Stephanie Camp - 02/02/2016 6:48 PM EST Spoke with Pt who c/o right lower leg pain for several months. Reports she was seen here for it in the past and had a negative sonogram . Hx shows Pt was seen and evaluated for right calf pain on 01/01/16 with negative US for DVT. Pt is primarily nigerian speaking and advised I would call back shortly with an Newscast Director service. Verbalized understanding and agreed with plan. Pt is nigerian speaking only. Interpretor service used via [employer]. Interpretor # [id number] assisted with call. Phone call returned, no answer, left message to return call. * Telephone Encounter - Clara ClancyvedoYangDe - 02/02/2016 4:23 PM EST Letter requested for: Pt is looking to move closer to home/family Reason for letter: Att: Enersave Specific notations needed in body of letter: Pt feels depressed living far away in [place] and would like a letter stateting that by moving closer to home near family will help improve her feeling of depression Date needed for completion: As soon as possible When completed: Will pick up operator-call when completed: documented in this encounter Plan of Treatment Not on file documented as of this encounter Visit Diagnoses Not on filedocumented in this encounter Care Teams Body Design Checker Relationship Specialty Start Date End Date Robinson Howe MD [address] [place] [address] PCP - General Internal Medicine 11/03/14 04/13/20 Jesus Monterroso MD [address] [place] [address] PCP - General Internal Medicine 04/14/20 07/05/20 Abram Gardner MD [address] [place] [address] PCP - General Internal Medicine 07/06/20 12/24/20 Michael Gillette MD [address] [place] [address] PCP - General Internal Medicine 12/25/20 06/28/21 [facility], Pcp [address] [place] [address] PCP - General Internal Medicine 06/29/21 11/14/21 Napoleon Linda [address] [place], [place] [phone] PCP - General Internal Medicine 11/15/21 04/20/22 [facility], Pcp [address] [place] [address] ANTONIO Bowman [address] PCP - General Internal Medicine 04/21/22 documented as of this encounter
--- OUTSIDE RECORDS SUMMARY | 2024-07-08 13:27 | XMS_ITS | Clinical Summary ---
Author Organization [employer] Address [address] [place] [address] [address] [place] [address] Care Team Providers Care Transportation Security Officer Name Role Phone Unavailable Primary Care Provider [...] teeth, acquired 09/12/2023 Periodontal disease 01/28/2022 Immunizations Immunization Administration Dates Next Due INFLUENZA INJECTABLE QUADRIV [...] 09/13/2024 3:00 PM EDT Office Visit [facility] [address] [place] [address] Delaney, Madeline [address] [place] [address] Health Maintenance Due Date Last Done Comments [...] patient's age to complete this topic Meningococcal B Vaccine Aged Out No l onger eligible based on patient's age to complete [...] Recently Relevant to Health Maintenance Insurance DENTAL [facility] JAIL OPTIONS (HMO D-SNP) [place] [id number] DENTAL - [facility] [address] [place] [id number]
--- OUTSIDE RECORDS SUMMARY | 2024-07-08 13:27 | XMS_ITS | Encounter Summary ---
Author Organization [facility] Address [address] [place] [address] Care Team Providers Care Animated Cartoons Painter Name Role Phone Robinson Howe MD Primary Care Provider + [phone] Jesus Monterroso MD Primary Care Provider Abram Flores MD Primary Care Provider Unavailab Michael Duvall MD Primary Care Provider rDiss nguyen [facility], Pcp Primary Care Provider Unavailabl e Napoleon Linda Primary Care Provider [phone] [facility], Pcp Primary Care Provider Unavailabl e Reason for Visit * Reason Onset Date Comments TEST RESULTS 07/06/2016 Encounter Details Date Type Department Care Team Description 07/06/2016 Telephone Adult [address] [phone] Robinson Howe MD [address] [place] [address] [phone] TEST RESULTS Social History Tobacco Use Types [...] on filedocumented in this encounter Care Teams Animated Cartoons Painter Relationship Specialty Start Date End Date Robinson Howe MD [address] [place] [address] PCP - General Internal Medicine 11/03/14 04/13/20 Jesus Monterroso MD [address] [place] [address] PCP - General Internal Medicine 04/14/20 07/05/20 Abram Gardner MD [address] [place] [address] PCP - General Internal Medicine 07/06/20 12/24/20 Michael Gillette MD [address] [place] [address] PCP - General Internal Medicine 12/25/20 06/28/21 [facility], Pcp [address] [place] [address] PCP - General Internal Medicine 06/29/21 11/14/21 Napoleon Linda [address] [place], [place] [phone] PCP - General Internal Medicine 11/15/21 04/20/22 [facility], Pcp [address] [place] [address] PCP - General Internal Medicine 04/21/22 documented as of this encounter
--- OUTSIDE RECORDS SUMMARY | 2024-07-08 13:27 | XMS_ITS | Encounter Summary ---
Author Organization [facility] Address [address] [place] [address] Care Team Providers Care Meter Inspector Name Role Phone Robinson Howe MD Primary Care Provider + [phone] Jesus Monterroso MD Primary Care Provider Abram Flores MD Primary Care Provider Unavailab Michael Duvall MD Primary Care Provider Unavagabriel nguyen [facility], Pcp Primary Care Provider UnavailNapoleon White Primary Care Provider [phone] [facility], Pcp Primary Care Provider Unavailguiod e Encounter Details Date Type Department Care Team Description 06/27/2016 Orders Only Medical Records [address] [place] [id number] Alexandria Todd MD [address] [place] [address] [facility] [place] [id number] Social History Tobacco Use Types Packs/Day Years [...] on filedocumented in this encounter Care Teams Meter Inspector Relationship Specialty Start Date End Date Robinson Howe MD [address] [place] [address] PCP - General Internal Medicine 11/03/14 04/13/20 Jesus Monterroso MD [address] [place] [address] PCP - General Internal Medicine 04/14/20 07/05/20 Abram Gardner MD [address] [place] [address] PCP - General Internal Medicine 07/06/20 12/24/20 Michael Gillette MD [address] [place] [address] PCP - General Internal Medicine 12/25/20 06/28/21 [facility], Pcp [address] [place] [address] PCP - General Internal Medicine 06/29/21 11/14/21 Napoleon Linda [address] [place] [address] PCP - General Internal Medicine 11/15/21 04/20/22 [facility], Pcp [address] [place] [address] PCP - General Internal Medicine 04/21/22 documented as of this encounter
--- NOTE | 2024-07-08 13:53 | MHC.OFFVIS ---
Intake Visit Reasons: 6 week botox Intake Note: Patient presents today for Botox questions Urology Medications: none Blood Thinner: aspirin Theatrical Dresser Required: Yes Theatrical Dresser Name: [id number] Information Interpreted: non-clinical & clinical Accompanied by: Self / Same As Patient Allergies regadenoson (From OraMetrix) Adverse Reaction (Intermediate, Verified 06/20/24 14:33) Chest Pain HPI Comments Details: 07/08/24--here for cystoscopy bladder Botox 100 units. Details of procedure: A 16 fr flexible disposable cystoscope was placed transurethrally into the bladder. The right and left ureteral orifices were visualized. There were mild moderate trabeculations noted. There were no suspicious bladder lesions seen. The Botox 100 units was mixed with 10 cc of normal saline and transurethral injections were placed into the posterior wall of the bladder. 0.5 mL to 1.0 mL placed at each injection site. Injections were placed from the inferior to superior position. The patient tolerated the procedure well. [facility] Medical History Elevated cholesterol HTN (hypertension) Type 2 diabetes mellitus Cognitive dysfunction GERD (gastroesophageal reflux disease) Osteopenia Hypothyroid Chronic cough History of neuropathy Chronic ankle pain Non-rheumatic aortic stenosis Pleuritic chest pain Chronic allergic rhinitis Hypothyroidism Asthma-COPD overlap syndrome ALISA (obstructive sleep apnea) Asthma Surgical History History of esophagogastroduodenoscopy (EGD) History of colonoscopy with polypectomy (04/16/24) Hx of cystoscopy History of colonoscopy (~03/12/20) History of surgery on lower extremity History of back surgery History of thyroid surgery Family History Father Diabetes HTN (hypertension) Heart disease Mother Diabetes HTN (hypertension) Other Asthma Social History Household Members: None Housing: Apartment Alcohol intake: former Patient Tobacco Use Status: Former Tobacco user Tobacco use type: Cigarette Years Smoked: 10 years e-Cigarette/Vaping Use: Never Used Second Hand Smoke Exposure: Yes service: No Current occupational status: disabled Current occupational exposures/hazards: No Cognitive needs: Yes (cane) Hearing needs: No Vision needs: Yes Female Reproductive History Menstrual Age of Menarche: 12 Office Procedures Botulinum toxin Injection Procedure code (CPT) selection complete Cystoscopy Consent Discussed risk and benefit or proposed procedure with the patient. Information consent for procedure given to the patient. Discussed technical aspects, risks, benefits and alternatives in full. Addressed all of the patient's questions and concerns regarding the procedure. The patient demonstrated knowledge and understanding. They wish to proceed with this procedure. Preparation The patient was prepped in the usual manner. A rubber boots and shoes repairer was present and in the room. Genitalia was prepped with betadine solution in a sterile manner. Lidocaine Jelly 2% was placed into the urethra. [id number] - Botox Injection, urethra or bladder DISPOSABLE SCOPE URO-N NEEDLE SCOPE Procedure code (CPT) selection complete Office Meds onabotulinumtoxinA 100 unit solution for injection Performing Provider: Colton Ledesma MD Performing Location: [facility] Administered by: Ced Mata LPN on 07/08/24 14:32 Dose Route Admin Location Dispensed Lot Number Expiration Date [facility] Head Up Operator 100 unit intravesical bladder 100 units [id number] 11/20/26 2396-6712-94 ALLERGAN/BOTOX Total Dispensed Waste 100 units 0 % lidocaine HCl 2 % mucosal jelly in applicator Performing Provider: Colton Ledesma MD Performing Location: [facility] Administered by: Ced Mata LPN on 07/08/24 14:22 Dose Route Admin Location Dispensed Lot Number Expiration Date [facility] Head Up Operator 10 mL intra-urethral 10 mL ciprofloxacin HCl 500 mg tablet Performing Provider: Colton Ledesma MD Performing Location: [facility] Documented (not given) by: Ced Mata LPN on 07/08/24 14:22 Reason Not Given: Not Medically Necessary phenazopyridine 200 mg tablet Performing Provider: Colton Ledesma MD Performing Location: [facility] Documented (not given) by: Ced Mata LPN on 07/08/24 14:22 Reason Not Given: Not Medically Necessary Assessment & Plan Assessment & Plan (1) OAB (overactive bladder): Code(s): N32.81 - Overactive bladder Category: Medical Plan Scheduled follow-up with nurse visit to check bladder scan PVR. Orders: Orders AMB Cystoscopy 07/08/24 N32.81 - Overactive bladder, N39.46 - Mixed incontinence, R32 - Unspecified urinary incontinence AMB Botulinum toxin Injection 07/08/24 N39.46 - Mixed incontinence, R32 - Unspecified urinary incontinence, N32.81 - Overactive bladder Urine Culture 07/08/24 R39.9 - Unspecified symptoms and signs involving the genitourinary system Patient Instructions: The patient had an opportunity to ask questions regarding treatment plan. The patient expressed understanding and agreement with the above treatment plan. The patient is aware they should contact our office by phone for worsening of their current condition or the appearance of new symptoms. Compliance is encouraged with any medications and followup testing that is ordered. It is a privilege to be allowed the opportunity to participate in the urologic care of your patient. If you have any questions or concerns regarding treatment for the above conditions please do not hesitate to contact me. The office telephone contact is [phone]. This note is constructed in part using voice recognition software. While every effort has been made to ensure accuracy dimension mill worker errors may have been included. Yours sincerely, Colton Ledesma MD Coding Level of Care Code Procedure Only Diagnoses OAB (overactive bladder) N32.81 CPT Codes Cystoscopy - CPT: 38871-[id number] ([id number]) Cystoscopy - CPT: 17094 - Botox Injection, urethra or bladder ([id number])
== END 2024-07-08 15:17 | disposition home or self-care (01) ==
LOC: HO.HUSH 13:22
PROVIDERS: PCP Internal Medicine; Visit Provider Urology
DX: N32.81 Overactive bladder (principal); N39.46 Mixed incontinence; R32 Unspecified urinary incontinence
CPT/HCPCS: 52287

== ENCOUNTER 2024-07-08 13:21 | Outpatient (REF) | payer OTHER, SELFPAY ==
--- OUTSIDE RECORDS SUMMARY | 2024-07-08 16:14 | XMS_ITS | Encounter Summary ---
Author Organization [employer] [facility] Address [address] [place] [address] [address] [place] [address] Care Team Providers Care Probation Agent Name Role Phone Unavailable Primary Care Provider Unavailabl e Encounter Details Date Type Department Care Team (Latest Contact Info) Description 04/05/2018 Abstract [facility] CONVERSIONS Dental, Provider, DDS Social History [...] 3:00 PM EDT Office Visit [facility] ADULT DENTAL [address] [place] [address] Delaney, Madeline [address] [place] [address] documented as of this encounter Visit Diagnoses Not on filedocumented in this encounter
--- OUTSIDE RECORDS SUMMARY | 2024-07-08 16:14 | XMS_ITS | Encounter Summary ---
Author Organization [facility] Address [address] [place] [address] [address] [place] [address] Care Team Providers Care Steam And Gas Turbines Assembler Name Role Phone Unavailable Primary Care Provider Unavailabl e Encounter Details Date Type Department Care Team (Latest Contact Info) Description 10/03/[address] [facility] CONVERSIONS Dental, Provider, DDS Social [...] PM EDT Office Visit [facility] ADULT DENTAL [address] [place] [address] Delaney, Madeline [address] [place] [address] documented as of this encounter Visit Diagnoses Not on filedocumented in this encounter
--- OUTSIDE RECORDS SUMMARY | 2024-07-08 16:14 | XMS_ITS | Encounter Summary ---
Author Organization [employer] [facility] Address [address] [place] [address] [address] [place] [address] Care Team Providers Care Fitter And Turner Name Role Phone Unavailable Primary Care Provider Unavailabl e Encounter Details Date Type Department Care Team (Latest Contact Info) Description 12/24/2021 Abstract [facility] CONVERSIONS Dental, Provider, DDS Social [...] Description 09/13/2024 3:00 PM EDT Office Visit [facility] ADULT DENTAL [address] [place] [address] Delaney, Madeline [address] [place] [address] documented as of this encounter Visit Diagnoses Not on filedocumented in this encounter
--- OUTSIDE RECORDS SUMMARY | 2024-07-08 16:14 | XMS_ITS | Encounter Summary ---
Author Organization [facility] Address [address] [place] [address] [address] [address] Care Team Providers Care Theater Set Production Designer Name Role Phone Unavailable Primary Care Provider Unavailabl e Reason for Visit * Reason Onset Date Comments Durable Medical Equipment 01/18/2023 Encounter Details Date Type Department Care Team ([facility] st Contact Info) Description 01/18/2023 Telephone [facility] [address] [place] [address] Jesus Wiseman MD [address] [place] [address] Durable Medical Equipment Social History Tobacco Use [...] Miscellaneous Notes * Telephone Encounter - Ayaan yAala - 01/18/2023 4:39 PM EST Tc from Susana working with [facility] requesting the following. Pull ups size Medium 4 per day, Wipes 4 per month, Disposable bed pads 2 per day, and she [id number] refills for all the supply's. Any questions please contact Susana at [phone] ext [phone] FYI after further inspection this pt does not seem active. documented in this encounter Plan of Treatment Upcoming Encounters Date Type Department Care Team (Late st Contact Info) Description 09/13/2024 3:00 PM EDT Office Visit [facility] [address] [place] [address] Madeline Baltazar [address] [place] [address] documented as of this encounter Visit Diagnoses Not on filedocumented in this encounter
--- OUTSIDE RECORDS SUMMARY | 2024-07-08 16:14 | XMS_ITS | Encounter Summary ---
Author Organization [employer] [facility] Address [address] [place] [address] [address] [address] Care Team Providers Care Securities And Real Estate Director Name Role Phone Unavailable Primary Care Provider Unavailabl e Encounter Details Date Type Department Care Team (Late st Contact Info) Description 01/26/2022 Abstract [facility] ADULT DENTAL [address] [place] [address] Dental, Provider, DDS Social History Tobacco Use [...] Visit [facility] ADULT DENTAL [address] [place] [address] Delaney, Madeline [address] [place] [address] documented as of this encounter Procedures Procedure [...]
--- OUTSIDE RECORDS SUMMARY | 2024-07-08 16:14 | XMS_ITS | Encounter Summary ---
Author Organization [facility] Address [address] [place] [address] [address] [place] [address] Care Team Providers Care Wing Coverer Name Role Phone Unavailable Primary Care Provider Unavailabl e Encounter Details Date Type Department Care Team (Latest Contact Info) Description 12/24/2021 Abstract [facility] CONVERSIONS Dental, Provider, DDS Social History [...] Description 09/13/2024 3:00 PM EDT Office Visit [facility] ADULT DENTAL [address] [place] [address] Delaney, Madeline [address] [place] [address] documented as of this encounter Visit Diagnoses Not on filedocumented in this encounter
--- OUTSIDE RECORDS SUMMARY | 2024-07-08 16:14 | XMS_ITS | Clinical Summary ---
Author Organization [employer] Address [address] [place] [address] [address] [place] [address] Care Team Providers Care Hand Silvering Supervisor Name Role Phone Unavailable Primary Care [...] PM EDT Office Visit [facility] ADULT DENTAL [address] [place] [address] Delaney, Madeline [address] [place] [address] Health Maintenance Due Date Last Done Comments [...] Recently Relevant to Health Maintenance Insurance [facility]ENTAL [facility] RESIDENTIAL OPTIONS (HMO D-SNP) [place] [id number] [address] [facility] [address] [place] [id number]
== END 2024-07-08 13:22 | disposition home or self-care (01) ==
LOC: HO.LNP 13:21
PROVIDERS: PCP Internal Medicine; Visit Provider Urology
DX: N32.81 Overactive bladder (principal); R39.9 Unspecified symptoms and signs involving the genitourinary system; N39.46 Mixed incontinence
CPT/HCPCS: 52287; 87086; J0585

== ENCOUNTER → 2024-07-23 10:42 | Outpatient (BNVA) | payer OTHER, SELFPAY | PROVIDERS: PCP Internal Medicine; Visit Provider Urology | DX: N32.81 Overactive bladder (principal) | CPT/HCPCS: 51798 ==

== ENCOUNTER 2024-07-24 11:03 | Outpatient (AMB) | payer OTHER, SELFPAY ==
--- OUTSIDE RECORDS SUMMARY | 2024-07-24 11:58 | XMS_ITS | Encounter Summary ---
Author Organization [facility] Address [address] [place] [address] [address] [address] Care Team Providers Care Sailor Name Role Phone Unavailable Primary Care Provider Unavailabl e Encounter Details Date Type Department Care Team (Latest Contact Info) Description 04/05/2018 Abstract [facility] CONVERSIONS Dental, Provider, DDS Social History Tobacco [...] Description 09/13/2024 3:00 PM EDT Office Visit [facility] ADULT DENTAL [address] [place] [address] Delaney, Madeline [address] [place] [address] documented as of this encounter Visit Diagnoses Not on filedocumented in this encounter
[2024-07-24 12:10] VITALS: BP 120/70; PULSE 69; O2SAT 97; BMI 27.1
--- NOTE | 2024-07-24 12:10 | A.OFFVIS_ITS ---
Vital Signs 07/24/24 12:10 Height 5 ft 3 in Weight 153 lb BMI 27.1 BP 120/70 Blood Pressure Location Lt brachial Position Sitting Pulse 69 Pulse Source Pulse Oximeter Pulse Oximetry (%) 97 Oxygen Delivery Method Room Air Intake Visit Reasons: 6 mo follow up Alignment Specialist Required: No Alignment Specialist Name: Daughter Interperted Accompanied by: Daughter Allergies regadenoson [From Lexiscan] Adverse Reaction (Intermediate, Verified 06/20/24 14:33) Chest Pain HPI Comments Details: 73-yr-old female presents for f/u visit. Pt is accompanied by her dtrs, Mouna. Pt states she her cognition is a bit worse- more forgetful. Her family needs to double check that she took her meds, or pt may forget which of the coffee cups is hers- switches hers w/ her dtrs. Continue Namenda ER 28mg qd- tolerating well. Pt reports she continues to use her CPAP nightly. States Dr Ayala decreased her CPAP settings form 12 to 8 cmH2O, and she is now tolerating it much better. However she is wondering why she has dry mouth am a white coating on her tongue. She denies pain in her tongue, throat pain on swallowing, altered taste. She is taking daily walks with her dog, and doing exercises for her legs/circulation. She may have leg cramps when resting or sleeping. Denies calf cramps on walking. Not currently on Mag. Has started botox for urinary frequency- which is helping her OAB s/s. She is socializing. She is doing word-finding puzzles. States mood is over stable stable. F/b by psych and therapy. [facility] Medical History Elevated cholesterol HTN (hypertension) Type 2 diabetes mellitus Cognitive dysfunction GERD (gastroesophageal reflux disease) Osteopenia Hypothyroid Chronic cough History of neuropathy Chronic ankle pain Non-rheumatic aortic stenosis Pleuritic chest pain Chronic allergic rhinitis Hypothyroidism Asthma-COPD overlap syndrome ALISA (obstructive sleep apnea) Asthma Surgical History History of esophagogastroduodenoscopy (EGD) History of colonoscopy with polypectomy (04/16/24) Hx of cystoscopy History of colonoscopy (~03/12/20) History of surgery on lower extremity History of back surgery History of thyroid surgery Family History Father Diabetes HTN (hypertension) Heart disease Mother Diabetes HTN (hypertension) Other Asthma Social History Household Members: None Housing: Apartment Alcohol intake: former Patient Tobacco Use Status: Former Tobacco user Tobacco use type: Cigarette Years Smoked: 10 years e-Cigarette/Vaping Use: Never Used Second Hand Smoke Exposure: Yes service: No Current occupational status: disabled Current occupational exposures/hazards: No Cognitive needs: Yes (cane) Hearing needs: No Vision needs: Yes Female Reproductive History Menstrual Age of Menarche: 12 Physical Exam Vital Signs: Last Vital Signs Pulse 69 07/24/24 12:10 BP 120/70 07/24/24 12:10 Pulse Ox 97 07/24/24 12:10 Oxygen Delivery Method Room Air 07/24/24 12:10 BMI result Body Mass Index 27.1 Const General: cooperative and no acute distress Orientation/consciousness: patient oriented x3 Resp Effort & Inspection: normal respiratory effort and able to speak in complete sentences Neuro Other: Steady gait with cane General: patient oriented x3 Cranial nerves: Yes CN's II-XII intact bilaterally Cognition (Neuro): normal cognition Psych Appearance: grossly normal Mental Status: mental status grossly normal Speech and movement: Normal speech and movement present Affect: normal affect Attitude: cooperative Assessment & Plan Assessment & Plan (1) Mild neurocognitive disorder: Code(s): G31.84 - Mild cognitive impairment of uncertain or unknown etiology Category: Medical (2) Right-sided lacunar infarction: Comment: brain MRI report- Mild to moderate underlying microangiopathy and generalized cerebral volume loss. Tiny chronic lacunar infarct of the right cerebellar hemisphere. Code(s): I63.81 - Other cerebral infarction due to occlusion or stenosis of small artery Category: Medical (3) ALISA (obstructive sleep apnea): Code(s): G47.33 - Obstructive sleep apnea (adult) (pediatric) Category: Medical Plan We briefly discussed considering workup to see if patient would be a candidate for an anti amyloid therapy for mild cognitive impairment/dementia, starting with a follow-up brain MRI. Explained that if she were candidate for these medications are indicated for people with mild cognitive impairment or mild dementia symptoms from an Alzheimer's/amyloid etiology. Patient declines at this time. She is in the room Continue to optimize CV and metabolic risk factors- blood pressure normotensive today. Continue aspirin, antihypertensive and diabetic regimen. Continue Namenda ER 28mg qhs. Encourage patient to use CPAP nightly > 4 hrs. She may benefit from trying OTC Xylimelts to reduce oral dryness and white tongue. Advised Xylimelts should be stored securely from her dog, as these can make dog sick. If this is ineffective, patient advised to follow-up with Dr. Ayala in pulmonology. Start magnesium 400 mg daily at bedtime- in hopes this helps leg cramps. Continue daily walks. Encouraged patient to continue to engage in regular social and cognitively stimulating activities. Continue to f/u w/ psychiatry and psychotherapy. Consider f/u neuro-psych testing in 1-1.5 yrs. f/u in 6 months or sooner prn. Medications: New magnesium oxide may hold for loose stools 400 mg PO BEDTIME 30 tabs 6RF 30 days Coding Level of Care Code Est Pt Level 4 (76456) Diagnoses Mild neurocognitive disorder G31.84 Right-sided lacunar infarction I63.81 ALISA (obstructive sleep apnea) G47.33
== END 2024-07-24 13:12 | disposition home or self-care (01) ==
PROVIDERS: PCP Nurse Practitioner Family; Visit Provider Nurse Practitioner Family
DX: I69.318 Other symptoms and signs involving cognitive functions following cerebral infarction (principal); G47.33 Obstructive sleep apnea (adult) (pediatric)
CPT/HCPCS: 99214

== ENCOUNTER → 2024-07-24 11:03 | Outpatient (BNVA) | payer OTHER, SELFPAY | PROVIDERS: PCP Nurse Practitioner Family; Visit Provider Nurse Practitioner Family | DX: G31.84 Mild cognitive impairment of uncertain or unknown etiology (principal); G47.33 Obstructive sleep apnea (adult) (pediatric); I63.81 Other cerebral infarction due to occlusion or stenosis of small artery | CPT/HCPCS: 99212 ==

== ENCOUNTER 2024-08-01 12:57 | Outpatient (REF) | payer OTHER, SELFPAY ==
--- NOTE | ~2024-08-01 | US_ITS ---
EXAMINATION: Noninvasive assessment of the bilateral lower extremities with ARTERIAL DUPLEX, ANKLE BRACHIAL INDICES (ABIs), and PULSE VOLUME RECORDINGS (PVRs). CLINICAL INFORMATION: Peripheral vascular disease, unspecified. TECHNIQUE: Duplex Doppler techniques with waveform analysis and measurement of velocities in the bilateral common femoral, profunda femoris, superficial femoral, popliteal and tibial arteries were performed. Additionally, ankle pulse volume recordings, ankle pressure measurements and ankle brachial indices were obtained of the lower extremity arterial system bilaterally. The study was performed only at rest. COMPARISON: None FINDINGS: DIRECT DUPLEX DOPPLER FINDINGS: RIGHT LEG: Common femoral artery: 136 cm/s, phasicity: Triphasic. Profunda femoris artery: 106 cm/s, phasicity: Biphasic. Superficial femoral artery (proximal): 116 cm/s, phasicity: Triphasic. . Superficial femoral artery (mid): 92 cm/s, phasicity: Biphasic Superficial femoral artery (distal): 99 cm/s, phasicity: Triphasic. Popliteal artery: 79 cm/s, phasicity: Triphasic. Posterior tibial artery: 141 cm/s, phasicity: Triphasic. Peroneal artery: 56 cm/s, phasicity: Biphasic. Anterior tibial artery: 91 cm/s, phasicity: Triphasic. Dorsalis pedis artery: 90 cm/s, phasicity:Monophasic. LEFT LEG: Common femoral artery: 232 cm/s, phasicity: Triphasic Profunda femoris artery: 80 cm/s, phasicity: Biphasic. Superficial femoral artery (proximal): 141 cm/s, phasicity: Triphasic. Superficial femoral artery (mid): 118 cm/s, phasicity: Biphasic. Superficial femoral artery (distal): 82 cm/s, phasicity: Triphasic. Popliteal artery: 55 cm/s, phasicity: Biphasic Posterior tibial artery: 124 cm/s, phasicity: Triphasic Peroneal artery: 74 cm/s, phasicity: Biphasic Anterior tibial artery: 45 cm/s, phasicity: Biphasic. Dorsalis pedis artery: 120 cm/s, phasicity: Biphasic. BRACHIAL PRESSURES: Right: 135 Left: 129 ANKLE PRESSURES: Right: PT 154, DP 153 Left: PT 151, DP 137 ANKLE-BRACHIAL INDEX: Right: 1.14 Left: 1.12 ANKLE PVR WAVEFORMS: Right: Normal Left: Normal US/US arterial duplex BI w/ WHITLEY IMPRESSION: Right leg: Mild inflow disease more pronounced in the proximal proximal profundal femoral artery and the mid segment of the superficial femoral artery and dorsalis pedis artery. Left leg: Moderate inflow disease involving mostly the proximal profundal femoral artery. WHITLEY Reference: - >1.4 = calcified vessels - 0.9 - 1.4 = normal - no significant arterial disease - 0.7 - 0.89 = mild peripheral arterial disease - 0.51 - 0.69 = moderate peripheral arterial disease - d 0.50 = severe peripheral arterial disease - < .30 = critical arterial disease Electronically signed by: Alverto Boggs MD 08/01/2024 02:56 PM EDT RP
--- OUTSIDE RECORDS SUMMARY | 2024-08-01 15:00 | XMS_ITS | Encounter Summary ---
Author Organization [employer] [facility] Address [address] [place] [address] [address] [place] [address] Care Team Providers Care Wood Planer Name Role Phone Unavailable Primary Care Provider Unavailabl e Encounter Details Date Type Department Care Team (Latest Contact Info) Description 04/05/2018 Abstract [facility] CONVERSIONS Dental, Provider, DDS Social History Tobacco [...] Description 09/13/2024 3:00 PM EDT Office Visit [facility] ADULT DENTAL [address] [place] [address] Delaney, Madeline [address] [place] [address] documented as of this encounter Visit Diagnoses Not on filedocumented in this encounter
== END 2024-08-01 12:58 | disposition home or self-care (01) ==
LOC: HO.US 12:57
PROVIDERS: PCP Internal Medicine; Visit Provider Surgery Vascular Surgery
DX: I73.9 Peripheral vascular disease, unspecified (principal)
CPT/HCPCS: 93922; 93925

== ENCOUNTER → 2024-08-01 12:59 | Outpatient (BNV) | payer OTHER, SELFPAY | PROVIDERS: PCP Internal Medicine; Visit Provider Radiology Diagnostic Radiology | DX: I73.9 Peripheral vascular disease, unspecified (principal) | CPT/HCPCS: 93922; 93925 ==

== ENCOUNTER 2024-08-20 15:09 | Outpatient (AMB) | payer OTHER, SELFPAY ==
--- NOTE | 2024-08-20 15:13 | MHC.OFFVIS ---
Intake Visit Reasons: follow up s/p Arterial US 08/01/24 Intake Note: Patient presents for follow up arterial US. Patient states she has pain behind her left knee. States she has swelling and pain in her right leg from the foot up to her back, had a tibial fracture and she believes it might be the reason she is having pain. Accompanied by: Daughter Allergies regadenoson (From [employer]) Adverse Reaction (Intermediate, Verified 08/22/24 11:36) Chest Pain HPI HPI follow up s/p Arterial US 08/01/24: Details: Very pleasant 74-year-old female presents for evaluation regarding leg cramping and numbness. She has a history of smoking and diabetes which appears to be well controlled. She had undergone surgery about 2 years ago at [facility] regarding a bunion. She is being seen by orthopedics regarding her right knee. She is on aspirin and statin. She now presents for follow-up with noninvasive arterial testing. [facility] Medical History Elevated cholesterol HTN (hypertension) Type 2 diabetes mellitus Cognitive dysfunction GERD (gastroesophageal reflux disease) Osteopenia Hypothyroid Chronic cough History of neuropathy Chronic ankle pain Non-rheumatic aortic stenosis Pleuritic chest pain Chronic allergic rhinitis Hypothyroidism Asthma-COPD overlap syndrome ALISA (obstructive sleep apnea) Asthma Surgical History History of esophagogastroduodenoscopy (EGD) History of colonoscopy with polypectomy (04/16/24) Hx of cystoscopy History of colonoscopy (~03/12/20) History of surgery on lower extremity History of back surgery History of thyroid surgery Family History Father Diabetes HTN (hypertension) Heart disease Mother Diabetes HTN (hypertension) Other Asthma Social History Household Members: None Housing: Apartment Alcohol intake: former Patient Tobacco Use Status: Former Tobacco user Tobacco use type: Cigarette Years Smoked: 10 years e-Cigarette/Vaping Use: Never Used Second Hand Smoke Exposure: Yes Patient : No service: No Current occupational status: disabled Current occupational exposures/hazards: No Cognitive needs: Yes (cane) Hearing needs: No Vision needs: Yes Female Reproductive History Menstrual Age of Menarche: 12 Review of Systems Const All systems reviewed & are unremarkable except as noted in HPI and below Reports no additional complaints ENT Reports Normal hearing present Card Denies chest pain, Denies chest pain at rest, Denies chest pain with activity and Denies pedal edema Resp Denies cough GI Denies abdominal pain Musc Denies abnormal gait, Denies muscle cramps and Denies radiating pain into limb Skin/Breast Denies skin ulcer and Denies wounds Neuro Reports Normal hearing present and Denies abnormal gait Psych Reports no additional complaints Physical Exam Const General: cooperative, healthy appearing and comfortable Orientation/consciousness: oriented to person, oriented to place and oriented to time HEENT Head: Yes normal to inspection Neck Neck: Yes normal visual inspection Carotids: no bruits Chest Chest palpation & inspection: normal inspection of the chest Resp Effort & Inspection: normal respiratory effort and able to speak in complete sentences Auscultation: clear to auscultation bilaterally, no crackles, no rales, no rhonchi and no wheezes Cardio Other: Bilateral palpable dorsalis pedis pulses Rate: regular rate Rhythm: regular rhythm Heart sounds: S1 normal heart sound present and S2 normal heart sound present Bruits: no carotid bruits GI Inspection: Yes normal to inspection Skin Wounds: no wounds Hair: normal Neuro General: oriented to person, oriented to place and oriented to time Cranial nerves: Yes CN's II-XII intact bilaterally and Yes Normal hearing present Cognition (Neuro): normal cognition Motor exam (neuro): 5/5 motor strength present throughout Extrem Other: venous exam: No significant superficial varicosities or spider telangiectasias, minimal edema General: No clubbing, No cyanosis and No edema Psych Appearance: grossly normal Mental Status: mental status grossly normal Speech and movement: Normal speech and movement present Results Reviewed Results Reviewed: Noninvasive arterial testing dated 08/01/2024 demonstrates essentially normal flow throughout bilateral lower extremities with WHITLEY on the right of 1.1 and on the left of 1.1 as well. I do believe that the left side is a bit of an over read. Assessment & Plan Assessment & Plan (1) PAD (peripheral artery disease): Code(s): I73.9 - Peripheral vascular disease, unspecified Category: Medical Plan: In short patient is negative for any significant peripheral artery disease. She has normal arterial testing and she does have palpable pulses. At the current time would recommend continued orthopedic and/or neurologic evaluation. She will follow up with us on an as-needed basis. Thank you for allowing us to assist in her care. Coding Level of Care Code Est Pt Level 4 (66182) Complex EM visit Add On G2211 Diagnoses PAD (peripheral artery disease) I73.9
--- OUTSIDE RECORDS SUMMARY | 2024-08-20 16:01 | XMS_ITS | Encounter Summary ---
Author Organization [facility] Address [address] [place] [address] Care Team Providers Care Educational Programming Director Name Role Phone Robinson Howe MD Primary Care Provider [phone] Jesus Monterroso MD Primary Care Provider Abram Flores MD Primary Care Provider Unavailab Michael Duvall MD Primary Care Provider Driss nguyen [facility] [place] [facility], Pcp Primary Care Provider Unavailabl Napoleon Ramirez Primary Care Provider [facility] [place] [facility], Pcp Primary Care Provider Unavailabl e Reason for Visit * Reason Onset Date Comments Faxed Refill 12/10/2019 Encounter Details Date Type Department Care Team Description 12/10/2019 Refill Adult Medicine [address] [phone] Robinson Howe MD [address] [place] [address] [phone] Faxed Refill Social History Tobacco Use Types [...] Patients current insurance carrier is: Payor: [facility] M[facility] / Plan: HMO $0 [facility] [id number] / Product Type: HMO [id number] documented in this encounter Plan of Treatment Not on file documented as of this encounter Visit Diagnoses Not on filedocumented in this encounter Care Teams Educational Programming Director Relationship Specialty Start Date End Date Robinson Howe MD [address] [place] [address] PCP - General Internal Medicine 11/03/14 04/13/20 Jesus Monterroso MD [address] [place] [address] PCP - General Internal Medicine 04/14/20 07/05/20 Abram Gardner MD [address] [place] [address] PCP - General Internal Medicine 07/06/20 12/24/20 Michael Gillette MD [address] [place], [place] [phone] PCP - General Internal Medicine 12/25/20 06/28/21 [facility] [place] [facility], Pcp [address] [place] [address] PCP - General Internal Medicine 06/29/21 11/14/21 Napoleon Linda [address] [place] [address] PCP - General Internal Medicine 11/15/21 04/20/22 [facility] [place] [facility], Pcp [address] [place] [id number] PCP - General Internal Medicine 04/21/22 documented as of this encounter
== END 2024-08-20 15:30 | disposition home or self-care (01) ==
LOC: HO.HVS 15:10
PROVIDERS: PCP Internal Medicine; Visit Provider Surgery Vascular Surgery
DX: I73.9 Peripheral vascular disease, unspecified (principal)
CPT/HCPCS: 99214; G2211

== ENCOUNTER → 2024-08-20 15:09 | Outpatient (BNVA) | payer OTHER, SELFPAY | PROVIDERS: PCP Internal Medicine; Visit Provider Surgery Vascular Surgery | DX: M25.562 Pain in left knee (principal); R20.2 Paresthesia of skin; I73.9 Peripheral vascular disease, unspecified | CPT/HCPCS: 99212 ==

== ENCOUNTER 2024-08-22 10:56 | Outpatient (AMB) | payer OTHER, SELFPAY ==
[2024-08-22 11:28] VITALS: BP 144/72; PULSE 66; TEMP 36.7; O2SAT 96; BMI 27.7
--- NOTE | 2024-08-22 11:28 | AM.OFFWIN_ITS ---
Intake Vital Signs 08/22/24 11:28 Height 5 ft 3 in Weight 156 lb 8 oz BMI 27.7 BP 144/72 H Blood Pressure Location Lt brachial Position Sitting Pulse 66 Pulse Source Pulse Oximeter Temp 98.0 F Temp Source Oral Pulse Oximetry (%) 96 Oxygen Delivery Method Room Air Comment 138/53 pts BP machine Intake Visit Reasons: EP 183/70 BP reading, fatigue Patient Tobacco Use Status: Former Tobacco user Hot Worker Required: No Is last menstrual period known: No Post menopausal: Yes Patient : No Allergies regadenoson (From [employer]) Adverse Reaction (Intermediate, Verified 08/22/24 11:36) Chest Pain Do you need a note to return to daycare/school/sports/work: No HPI HPI Comments History of Present Illness Details 74 y/o Female patient who presents to [facility] walk in clinic with c/o elevated Blood Pressure. She is accompanied by Daughter who reports that in the past 3 days Patient's Blood pressure readings have been elevated. Pt does endorse a diet high in salt - Ate [place] that was high in Sodium. Pt is Asymptomatic. [facility] Medical History Elevated cholesterol HTN (hypertension) Type 2 diabetes mellitus Cognitive dysfunction GERD (gastroesophageal reflux disease) Osteopenia Hypothyroid Chronic cough History of neuropathy Chronic ankle pain Non-rheumatic aortic stenosis Pleuritic chest pain Chronic allergic rhinitis Hypothyroidism Asthma-COPD overlap syndrome ALISA (obstructive sleep apnea) Asthma Surgical History History of esophagogastroduodenoscopy (EGD) History of colonoscopy with polypectomy (04/16/24) Hx of cystoscopy History of colonoscopy (~03/12/20) History of surgery on lower extremity History of back surgery History of thyroid surgery Family History Father Diabetes HTN (hypertension) Heart disease Mother Diabetes HTN (hypertension) Other Asthma Social History Household Members: None Housing: Apartment Alcohol intake: former Patient Tobacco Use Status: Former Tobacco user Tobacco use type: Cigarette Years Smoked: 10 years e-Cigarette/Vaping Use: Never Used Second Hand Smoke Exposure: Yes Patient : No service: No Current occupational status: disabled Current occupational exposures/hazards: No Cognitive needs: Yes (cane) Hearing needs: No Vision needs: Yes Female Reproductive History Menstrual Age of Menarche: 12 Review of Systems Const All systems reviewed & are unremarkable except as noted in HPI and below Physical Exam Vital Signs: Last Vital Signs Temp 98.0 F 08/22/24 11:28 Pulse 66 08/22/24 11:28 BP 144/72 H 08/22/24 11:28 Pulse Ox 96 08/22/24 11:28 Oxygen Delivery Method Room Air 08/22/24 11:28 BMI result Body Mass Index 27.7 Const General: no acute distress Nutritional Appearance: overweight Orientation/consciousness: patient oriented x3 Resp Effort & Inspection: normal respiratory effort Auscultation: clear to auscultation bilaterally Cardio Heart sounds: S1 normal heart sound present and S2 normal heart sound present Neuro General: patient oriented x3 Assessment & Plan Assessment & Plan (1) Essential hypertension: Code(s): I10 - Essential (primary) hypertension Plan: Asymptomatic, will continue on the same doses. Advised Lifestyle changes; weight loss, exercise and avoiding high Salt diet. Coding Level of Care Code Est Pt Level 4 (90394) Diagnoses Essential hypertension I10 Time Spent (min) 20
--- OUTSIDE RECORDS SUMMARY | 2024-08-22 11:45 | XMS_ITS | Encounter Summary ---
Author Organization [facility] Address [address] [place] [address] Care Team Providers Care Inside Steward/Stewardess Name Role Phone Robinson Howe MD Primary Care Provider + [phone] Jesus Monterroso MD Primary Care Provider Abram Flores MD Primary Care Provider Unavailab Michael Duvall MD Primary Care Provider Driss nguyen [facility], Pcp Primary Care Provider Unavailabl Napoleon Ramirez Primary Care Provider [phone] [facility], Pcp Primary Care Provider Unavailabl e Reason for Visit * Reason Onset Date Comments Faxed Refill 12/10/2019 Encounter Details Date Type Department Care Team Description 12/10/2019 Refill Adult Medicine [address] [phone] Robinson Howe MD [address] [place] [address] [phone] Faxed Refill Social History Tobacco Use Types [...] N/A Patients current insurance carrier is: Payor: [facility] MCR / Plan: HMO $0 [facility] [id number] / Product Type: HMO [id number] documented in this encounter Plan of Treatment Not on file documented as of this encounter Visit Diagnoses Not on filedocumented in this encounter Care Teams Inside Steward/Stewardess Relationship Specialty Start Date End Date Robinson Howe MD [address] [place] [address] PCP - General Internal Medicine 11/03/14 04/13/20 Jesus Monterroso MD [address] [place] [address] PCP - General Internal Medicine 04/14/20 07/05/20 Abram Gardner MD [address] [place] [address] PCP - General Internal Medicine 07/06/20 12/24/20 Michael Gillette MD [address] [place], [place] [phone] PCP - General Internal Medicine 12/25/20 06/28/21 [facility], Pcp [address] [place] [address] PCP - General Internal Medicine 06/29/21 11/14/21 Napoleon Linda [address] [place] [address] PCP - General Internal Medicine 11/15/21 04/20/22 [facility], Pcp [address] [place] [id number] PCP - General Internal Medicine 04/21/22 documented as of this encounter
--- OUTSIDE RECORDS SUMMARY | 2024-08-22 11:45 | XMS_ITS | Encounter Summary ---
Author Organization [employer] (Inspect Manager) [facility] Address [address] [place] [address] [address] [place] [address] Care Team Providers Care Executive Vice President Of Sales Name Role Phone Unavailable Primary Care Provider Unavailabl e Encounter Details Date Type Department Care Team (Latest Contact Info) Description 04/05/2018 Abstract [facility] Dental, Provider, DDS Social History Tobacco [...] 09/13/2024 3:00 PM EDT Office Visit [facility] [address] [place] [address] Delaney, Madeline [address] [place] [address] documented as of this encounter Visit Diagnoses Not on filedocumented in this encounter
== END 2024-08-22 12:05 | disposition home or self-care (01) ==
PROVIDERS: PCP Internal Medicine; Visit Provider Nurse Practitioner Family
DX: I10 Essential (primary) hypertension (principal)

== ENCOUNTER → 2024-08-22 10:56 | Outpatient (BNVA) | payer OTHER, SELFPAY | PROVIDERS: PCP Internal Medicine; Visit Provider Nurse Practitioner Family | DX: I10 Essential (primary) hypertension (principal) | CPT/HCPCS: 99212 ==

== ENCOUNTER 2024-10-10 09:30 | Outpatient (AMB) | payer OTHER, SELFPAY ==
--- NOTE | 2024-10-10 09:40 | MHC.PC.OV ---
Vital Signs 10/10/24 09:41 Height 5 ft 3 in Weight 156 lb BMI 27.6 BP 122/56 L Blood Pressure Location Lt brachial Position Sitting Pulse 76 Pulse Source Pulse Oximeter Pulse Oximetry (%) 97 Oxygen Delivery Method Room Air Intake Visit Reasons: ANNUAL Career Development Manager Required: Yes Career Development Manager Language: Azerbaijani Accompanied by: Daughter Allergies regadenoson (From [employer]) Adverse Reaction (Intermediate, Verified 10/10/24 19:39) Chest Pain Medication List - Last Reconciled 10/10/24 by Edu Agee MD amlodipine 5 mg PO DAILY ammonium lactate 12% appl topical BID ascorbic acid (vitamin C) 500 mg PO DAILY aspirin 81 mg PO DAILY azelastine 2 sprays intranasal BID 30 days benzonatate 200 mg PO BID PRN 30 days blood-glucose meter (FreeStyle Lite Meter kit) test daily carvedilol 6.25 mg PO BID cefuroxime axetil 500 mg PO BID cetirizine (Zyrtec) 10 mg PO DAILY PRN chlorhexidine gluconate 0.12% 15 mL PO BID cholecalciferol (vitamin D3) 25 mcg PO DAILY CPAP (CPAP Machine/Device) As directed dextromethorphan-guaifenesin 60-1,200 mg ER (Mucinex DM) 1 tab PO Q12H 28 days [DIABETIC SHOES As directed] [Disposable bed pads As directed] fluticasone propionate 50 mcg/actuation 2 sprays intranasal DAILY PRN xyucxdellja-usibdrrfj-lobacnvf 200-62.5-25 mcg (Trelegy Ellipta) 1 inh inhalation DAILY 30 days hydrocortisone 2.5% 1 appl topical BID PRN [incontinence wipes As directed] levothyroxine 100 mcg PO DAILY losartan 50 mg PO DAILY Magic Mouthwash Diphen/Lido/Antacid 1:1:1 10 mL PO BID-TID PRN 3 days magnesium oxide 400 mg PO BEDTIME 30 days magnesium oxide 400 mg PO BEDTIME meclizine 50 mg PO BID memantine 28 mg PO DAILY 90 days [Metal Shower handles As directed] metformin 500 mg PO DAILY montelukast 10 mg PO BEDTIME nebulizers As directed pantoprazole 20 mg PO DAILY phenazopyridine (Azo Urinary Pain Relief) 199 mg (2 x 99.5 mg) PO BID [pull up As directed] [Rollater walker As directed] Saccharomyces boulardii (Daily Probiotic (S. boulardii)) 5,000 mmu cells PO DAILY [sanitary pads kotex As directed] sennosides (Natural Senna Laxative) 17.2 mg (2 x 8.6 mg) PO DAILY 90 days sertraline mg PO DAILY simvastatin 20 mg PO BEDTIME tacrolimus 0.1% topical BID [tumeric 1 tab PO DAILY] Tobacco use date assessed: 10/10/24 Fall risk assessment: No Falls in past year Last assessed Fall Risk: 10/10/24 Dental Screening Dental Screen Date: 10/10/24 Did you have a dental visit in the last 12 months?: No Did you have a dental problem in the last 6 months where you did not have access to dental care?: No Was dental information given to patient?: Patient has dentist [facility] Medical History Elevated cholesterol HTN (hypertension) Type 2 diabetes mellitus Cognitive dysfunction GERD (gastroesophageal reflux disease) Osteopenia Hypothyroid Chronic cough History of neuropathy Chronic ankle pain Non-rheumatic aortic stenosis Pleuritic chest pain Chronic allergic rhinitis Hypothyroidism Asthma-COPD overlap syndrome ALISA (obstructive sleep apnea) Asthma Surgical History History of esophagogastroduodenoscopy (EGD) History of colonoscopy with polypectomy (04/16/24) Hx of cystoscopy History of colonoscopy (~03/12/20) History of surgery on lower extremity History of back surgery History of thyroid surgery Family History Father Diabetes HTN (hypertension) Heart disease Mother Diabetes HTN (hypertension) Other Asthma Social History Household Members: None Housing: Apartment Alcohol intake: former Patient Tobacco Use Status: Former Tobacco user Tobacco use type: Cigarette Years Smoked: 10 years e-Cigarette/Vaping Use: Never Used Second Hand Smoke Exposure: Yes service: No Current occupational status: disabled Current occupational exposures/hazards: No Cognitive needs: Yes (cane) Hearing needs: No Vision needs: Yes Female Reproductive History Menstrual Age of Menarche: 12 Questionnaire PHQ-9 Over the last 2 weeks, how often have you been bothered by any of the following problems? 1. Little interest or pleasure in doing things: not at all 2. Feeling down, depressed, or hopeless: not at all 3. Trouble falling or staying asleep, or sleeping too much: not at all 4. Feeling tired or having little energy: nearly every day 5. Poor appetite or overeating: not at all 6. Feeling bad about yourself - or that you are a failure or have let yourself or your family down: not at all 7. Trouble concentrating on things, such as reading the newspaper or watching television: several days 8. Moving or speaking so slowly that other people could have noticed. Or the opposite - being so fidgety or restless that you have been moving around a lot more than usual: not at all 9. Thoughts that you would be better off or of hurting yourself in some way: not at all Total score: 4 Source: Developed by Drs. Moncho Pacheco, Bill Woo and colleagues, with an educational lisa from [employer]. Thrive Questionnaire Date Thrive assessed: 10/10/24 I am a: Patient What is your living situation today?: I have a steady place to live Within the past 12 months, did the food you bought not last and you didn't have the money to get more?: Never true Within the past 12 months, did you worry whether your food would run out before you got money to buy more?: Never true Do you have trouble paying for medicines?: No Do you have trouble getting transportation to medical appointments?: No Do you have trouble paying your heating and electricity bill?: No Do you have trouble taking care of your child, family member or friend?: No Do you have trouble with day-to-day activities such as bathing, preparing meals, shopping, managing finances, etc.?: No Are you currently unemployed and looking for a job?: No Are you interested in more education?: No Please select the resources that you would like help with: None THRIVE Score: 0 ROSS-7 AMB Questionnaire ROSS-7 Date ROSS - 7 assessed: 04/12/24 Source: Developed by Drs. Moncho Pacheco, Bill Woo and colleagues, with an educational lisa from [employer]. Physical exam (Primary Care) Vital Signs: Last Vital Signs Pulse 76 10/10/24 09:41 BP 122/56 L 10/10/24 09:41 Pulse Ox 97 10/10/24 09:41 Oxygen Delivery Method Room Air 10/10/24 09:41 BMI result Body Mass Index 27.6 Tobacco/Smoking Status: Tobacco use Status Tobacco use date assessed 10/10/24 10/10/24 09:47 Patient Tobacco Use Status Former Tobacco user 10/10/24 09:47 Tobacco use type Cigarette 10/10/24 09:47 e-Cigarette/Vaping Use Never Used 10/10/24 09:47 PHQ-9: PHQ-9 Score PHQ-9: Total score 4 10/10/24 10:30 Thrive Assessment: Date of Thrive Assessment Date Thrive assessed 10/10/24 10/10/24 09:47 Coding Level of Care Code Est Pt Level 3 (79620) New Pt Prev Care >65yr (43819) Diagnoses Annual physical exam Z00.00 Vertigo R42 Assessment & Plan Assessment & Plan (1) Annual physical exam: Code(s): Z00.00 - Encounter for general adult medical examination without abnormal findings Plan: History of Present Illness - The patient is a 74-year-old female presenting with dizziness and arthritis-related pain. - Dizziness: The patient reports experiencing dizziness daily, particularly when lying down or waking up in the morning, for the past two months. - The dizziness sometimes intensifies, requiring her to rest during the day. - She has not experienced ringing in the ears but describes a sensation marco to a bottle inside her head. - Arthritis: The patient experiences pain in the joints, which she attributes to arthritis, and has been using Tylenol for relief. - Despite medication, the pain persists, particularly in areas previously fractured. Social History - The patient uses a walker and a cane for mobility assistance. - She lives in a building and uses a shopping cart for groceries, indicating some level of independence in daily activities. Review of Systems - Neurological: Reports dizziness daily, especially when lying down or waking up. Denies tinnitus. - Musculoskeletal: Reports joint pain attributed to arthritis, particularly in previously fractured areas. Physical Exam General: Cooperative and healthy appearing Nutritional Appearance: Well nourished Orientation/consciousness: Patient oriented x3 Limitations: No limitations Head: Normal to inspection General: Appearance normal, both eyes and all related structures Neck: Normal visual inspection Chest: Normal palpation of entire chest wall Respiratory: Normal respiratory effort Neurology: Patient oriented x3 Results Plan 1. Dizziness - Plan to initiate vestibular therapy to address dizziness symptoms. - Blood tests have been ordered to further investigate underlying causes. 2. Arthritis - Continue current use of Tylenol for pain management. - Discussed the possibility of stronger pain medication if needed, but patient declined due to current medication load. Discussion Notes I discussed with the patient the initiation of vestibular therapy to help manage her dizziness symptoms. Blood tests were ordered to further investigate any underlying causes of her symptoms. We also talked about her current arthritis pain management with Tylenol and the option for stronger medication, which she declined. Patient Instructions - Attend scheduled vestibular therapy sessions to help with dizziness. - Complete blood tests as ordered to investigate symptoms further. - Continue using Tylenol for arthritis pain as needed. - Follow up in six months or sooner if symptoms worsen. (2) Vertigo: Code(s): R42 - Dizziness and giddiness Plan: As above Orders: Orders Basic Metabolic Panel Today I10 - Essential (primary) hypertension Complete Blood Count no Diff Today I10 - Essential (primary) hypertension Liver Panel Today I10 - Essential (primary) hypertension UA and rflx microscopic Today I10 - Essential (primary) hypertension PT Evaluation and Treatment Today R42 - Dizziness and giddiness Lipase Today I10 - Essential (primary) hypertension, K85.90 - Acute pancreatitis without necrosis or infection, unspecified Lipid Panel Today I10 - Essential (primary) hypertension Thyroid Stimulating Hormone Today I10 - Essential (primary) hypertension Medications: Refilled azelastine administer into each nostril 2 sprays intranasal BID 30 mL 6RF 30 days
[2024-10-10 09:41] VITALS: BP 122/56; PULSE 76; O2SAT 97; BMI 27.6
--- OUTSIDE RECORDS SUMMARY | 2024-10-10 10:42 | XMS_ITS | Encounter Summary ---
Author Organization [employer] [facility] Address [address] [place] [address] [address] [address] Care Team Providers Care Dumper Bulk System Name Role Phone Unavailable Primary Care Provider Unavailabl e Encounter Details Date Type Department Care Team (Latest Contact Info) Description 04/05/2018 Abstract [facility] CONVERSIONS Dental, Provider, DDS Social [...]
--- OUTSIDE RECORDS SUMMARY | 2024-10-10 10:42 | XMS_ITS | Encounter Summary ---
Author Organization [facility] Address [address] [place] [address] Care Team Providers Care Residential Leasing Agent Name Role Phone Robinson Howe MD Primary Care Provider [phone] Jesus Monterroso MD Primary Care Provider Abram Flores MD Primary Care Provider Unavailab Michael Duvall MD Primary Care Provider Driss nguyen [facility], Pcp Primary Care Provider Unavailabl Napoleon Ramirez Primary Care Provider [phone] [facility], Pcp Primary Care Provider Unavailabl e Reason for Visit * Reason Onset Date Comments Faxed Refill 12/10/2019 Encounter Details Date Type Department Care Team Description 12/10/2019 Refill Adult Medicine [address] [phone] Robinson Howe MD [address] [place] [address] [phone] Faxed Refill Social History Tobacco Use Types [...] N/A Patients current insurance carrier is: Payor: [facility] MCR / Plan: HMO $0 [facility] [id number] / Product Type: HMO [id number] documented in this encounter Plan of Treatment Not on file documented as of this encounter Visit Diagnoses Not on filedocumented in this encounter Care Teams Residential Leasing Agent Relationship Specialty Start Date End Date Robinson Howe MD [address] [place] [address] PCP - General Internal Medicine 11/03/14 04/13/20 Jesus Monterroso MD [address] [place] [address] PCP - General Internal Medicine 04/14/20 07/05/20 Abram Gardner MD [address] [place] [address] PCP - General Internal Medicine 07/06/20 12/24/20 Michael Gillette MD [address] [place], [place] [phone] PCP - General Internal Medicine 12/25/20 06/28/21 [facility], Pcp [address] [place] [address] PCP - General Internal Medicine 06/29/21 11/14/21 Napoleon Linda [address] [place] [address] PCP - General Internal Medicine 11/15/21 04/20/22 [facility], Pcp [address] [place] [address] PCP - General Internal Medicine 04/21/22 documented as of this encounter
== END 2024-10-10 10:01 | disposition home or self-care (01) ==
LOC: HO.HMCH 09:31
PROVIDERS: PCP Internal Medicine; Visit Provider Internal Medicine
DX: Z00.00 Encounter for general adult medical examination without abnormal findings (principal); R42 Dizziness and giddiness

== ENCOUNTER → 2024-10-10 09:30 | Outpatient (BNVA) | payer OTHER, SELFPAY | PROVIDERS: PCP Internal Medicine; Visit Provider Internal Medicine | DX: Z00.00 Encounter for general adult medical examination without abnormal findings (principal); R42 Dizziness and giddiness | CPT/HCPCS: 96127; 99212; 99397 ==

== ENCOUNTER 2024-10-18 10:06 | Outpatient (REF) | payer OTHER, SELFPAY ==
--- OUTSIDE RECORDS SUMMARY | 2024-10-18 12:23 | XMS_ITS | Encounter Summary ---
Author Organization [facility] Address [address] [place] [address] Care Team Providers Care Profile Saw Setup Operator Name Role Phone Robinson Howe MD Primary Care Provider [phone] Jesus Monterroso MD Primary Care Provider Abram Flores MD Primary Care Provider Michael Hinojosa MD Primary Care Provider Driss nguyen [facility], Pcp Primary Care Provider Napoleon Mejia Primary Care Provider [phone] [facility], Pcp Primary Care Provider Maria T grace Encounter Details Date Type Department Care Team Description 01/21/2015 Business Doc Medical Records [address] [place] [id number] Abstract, Provider Social History Tobacco Use Types [...] on filedocumented in this encounter Care Teams Profile Saw Setup Operator Relationship Specialty Start Date End Date Robinson Howe MD [address] [place] [address] PCP - General Internal Medicine 11/03/14 04/13/20 Jesus Monterroso MD [address] [place] [address] PCP - General Internal Medicine 04/14/20 07/05/20 Abram Gardner MD [address] [place] [address] PCP - General Internal Medicine 07/06/20 12/24/20 Michael Gillette MD [address] [place] [address] PCP - General Internal Medicine 12/25/20 06/28/21 [facility], Pcp [address] [place], [place] [phone] PCP - General Internal Medicine 06/29/21 11/14/21 Napoleon Linda [address] [place] [address] PCP - General Internal Medicine 11/15/21 04/20/22 [facility], Pcp [address] [place] [address] PCP - General Internal Medicine 04/21/22 documented as of this encounter
--- OUTSIDE RECORDS SUMMARY | 2024-10-18 12:23 | XMS_ITS | Encounter Summary ---
Author Organization [facility] Address [address] [place] [address] Care Team Providers Care Laboratory Administrative Director Name Role Phone Robinson Howe MD Primary Care Provider [phone] Jesus Monterroso MD Primary Care Provider Abram Flores MD Primary Care Provider Unavailab Michael Duvall MD Primary Care Provider Driss nguyen [facility], Pcp Primary Care Provider UnavailNapoleon White Primary Care Provider [phone] [facility], Pcp Primary Care Provider Unavailabl e Reason for Visit * Reason Comments E-prescribe Rx Request Encounter Details Date Type Department Care Team Description 12/15/2019 Refill Adult Medicine [address] [phone] Robinson Howe MD [address] [place] [address] [phone] E-prescribe Rx Request Social History Tobacco Use [...] N/A Patients current insurance carrier is: Payor: [facility] MCR / Plan: O $0 [facility] [id number] / Product Type: HMO [id number] documented in this encounter Plan of Treatment [...] extremity documented in this encounter Care Teams Laboratory Administrative Director Relationship Specialty Start Date End Date Robinson Howe MD [address] [place] [address] PCP - General Internal Medicine 11/03/14 04/13/20 Jesus Monterroso MD [address] [place] [address] PCP - General Internal Medicine 04/14/20 07/05/20 Abram Gardner MD [address] [place] [address] PCP - General Internal Medicine 07/06/20 12/24/20 Michael Gillette MD [address] [place] [address] PCP - General Internal Medicine 12/25/20 06/28/21 [facility], Pcp [address] [place], [place] [phone] PCP - General Internal Medicine 06/29/21 11/14/21 Napoleon Linda [address] [place] [address] PCP - General Internal Medicine 11/15/21 04/20/22 [facility], Pcp [address] [place] [address] PCP - General Internal Medicine 04/21/22 documented as of this encounter
--- OUTSIDE RECORDS SUMMARY | 2024-10-18 12:23 | XMS_ITS | Encounter Summary ---
Author Organization [facility] Address [address] [place] [address] Care Team Providers Care Catalogue And Special Products Manager Name Role Phone Robinson Howe MD Primary Care Provider [phone] Jesus Monterroso MD Primary Care Provider Abram Flores MD Primary Care Provider Michael Hinojosa MD Primary Care Provider Driss nguyen [facility], Pcp Primary Care Provider Napoleon Mejia Primary Care Provider [phone] [facility], Pcp Primary Care Provider Maria T grace Encounter Details Date Type Department Care Team Description 11/28/2017 Release of Information Medical Records [address] [place] [id number] Abstract, Provider Social History Tobacco Use Types [...] on filedocumented in this encounter Care Teams Catalogue And Special Products Manager Relationship Specialty Start Date End Date Robinson Howe MD [address] [place] [address] PCP - General Internal Medicine 11/03/14 04/13/20 Jesus Monterroso MD [address] [place] [address] PCP - General Internal Medicine 04/14/20 07/05/20 Abram Gardner MD [address] [place] [address] PCP - General Internal Medicine 07/06/20 12/24/20 Michael Gillette MD [address] [place] [address] PCP - General Internal Medicine 12/25/20 06/28/21 [facility], Pcp [address] [place], [place] [phone] PCP - General Internal Medicine 06/29/21 11/14/21 Napoleon Linda [address] [place] [address] PCP - General Internal Medicine 11/15/21 04/20/22 [facility], Pcp [address] [place] [address] PCP - General Internal Medicine 04/21/22 documented as of this encounter
--- OUTSIDE RECORDS SUMMARY | 2024-10-18 12:23 | XMS_ITS | Encounter Summary ---
Author Organization [facility] Address [address] [place] [address] Care Team Providers Care Salesperson New Cars Name Role Phone Robinson Howe MD Primary Care Provider + [phone] Jesus Monterroso MD Primary Care Provider Abram Flores MD Primary Care Provider UnavailMichael Elmore MD Primary Care Provider Driss nguyen [facility], Pcp Primary Care Provider UnavailNapoleon White Primary Care Provider [phone] [facility], Pcp Primary Care Provider Unavailguido e Encounter Details Date Type Department Care Team Description 11/11/2019 Telephone Adult Medicine [address] [phone] Robinson Howe MD [address] [place] [address] [id number] Social History Tobacco Use Types Packs/Day Years [...] Date End Date Robinson Howe MD [address] [place] [address] PCP - General Internal Medicine 11/03/14 04/13/20 Jesus Monterroso MD [address] [place] [address] PCP - General Internal Medicine 04/14/20 07/05/20 Abram Gardner MD [address] [place] [address] PCP - General Internal Medicine 07/06/20 12/24/20 Michael Gillette MD [address] [place] [address] PCP - General Internal Medicine 12/25/20 06/28/21 [facility], Pcp [address] [place] [address] PCP - General Internal Medicine 06/29/21 11/14/21 Napoleon Linda [address] [place] [address] PCP - General Internal Medicine 11/15/21 04/20/22 [facility], Pcp [address] [place], [place] [id number] PCP - General Internal Medicine 04/21/22 documented as of this encounter
--- OUTSIDE RECORDS SUMMARY | 2024-10-18 12:23 | XMS_ITS | Encounter Summary ---
Author Organization [facility] Address [address] [place] [address] Care Team Providers Care Comb Winder Name Role Phone Robinson Howe MD Primary Care Provider + [phone] Jesus Monterroso MD Primary Care Provider Abram Flores MD Primary Care Provider Unavailab Michael Duvall MD Primary Care Provider Mariaelenavagabriel nguyen [facility], Pcp Primary Care Provider Unavailabl e Napoleon Linda Primary Care Provider [phone] [facility], Pcp Primary Care Provider Unavailabl e Reason for Referral * Non JERED (Routine) - Authorized/Booked Specialty Diagnoses / Procedures Referred By Contac t Referred To Contact Pulmonology Diagnoses Mild intermittent asthma, unspecified whether complicated Procedures REFERRAL TO PULMONOLOGY Robinson Howe MD [address] [place] [address] Pulmo/[place] [address] [address] Referral ID Status Reason Start Date Expiration Date V isits Requested Visits Authorized [id number] Authorized/B ooked 01/01/2018 01/01/2019 1 1 Reason for Visit * Reason Onset Date Comments Hydraulic Spinner Feedback 12/29/2017 pulmo Encounter Details Date Type Department Care Team Description 12/29/2017 Telephone Adult Medicine [facility] [address] [place] [address] Robinson Howe MD [address] [place] [address] Hydraulic Spinner Feedback (pulmo) Social History Tobacco Use Types [...] needs to start: n/a Robinson Howe [facility] M[facility] / Plan: HMO $0 [place] [id number] / Product Type: HMO [id number] * Telephone Encounter - Darling Valerie - 12/29/2017 11:49 AM EST Please complete the proper smart text * Telephone Encounter - Sandi Zazueta - 12/29/2017 11:06 AM EST Patient would like a referral to pulmonary due to asthma, requesting to see providers at [address] [place] [address]. Please advise. documented in this encounter Plan of Treatment Not on file documented as of this encounter Visit Diagnoses Diagnosis Mild intermittent asthma, unspecified whether complicated- Primary documented in this encounter Care Teams Comb Winder Relationship Specialty Start Date End Date Robinson Howe MD [address] [place] [address] PCP - General Internal Medicine 11/03/14 04/13/20 Jesus Monterroso MD [address] [place] [address] PCP - General Internal Medicine 04/14/20 07/05/20 Abram Gardner MD [address] [place] [address] PCP - General Internal Medicine 07/06/20 12/24/20 Michael Gillette MD [address] [place] [address] PCP - General Internal Medicine 12/25/20 06/28/21 [facility], Pcp [address] [place] [address] PCP - General Internal Medicine 06/29/21 11/14/21 Napoleon Linda [address] [place] [address] PCP - General Internal Medicine 11/15/21 04/20/22 [facility], Pcp [address] [place] [address] PCP - General Internal Medicine 04/21/22 documented as of this encounter
--- OUTSIDE RECORDS SUMMARY | 2024-10-18 12:23 | XMS_ITS | Encounter Summary ---
Author Organization [facility] Address [address] [place] [address] Care Team Providers Care Horse Buyer Name Role Phone Robinson Howe MD Primary Care Provider + [phone] Jesus Monterroso MD Primary Care Provider Abram Flores MD Primary Care Provider Unavailab Michael Duvall MD Primary Care Provider Driss nguyen [facility], Pcp Primary Care Provider Unavailabl e Napoleon Linda Primary Care Provider [phone] [facility], Pcp Primary Care Provider Unavailabl e Reason for Visit * Reason Onset Date Comments Faxed Order 06/10/2015 Encounter Details Date Type Department Care Team Description 06/10/2015 Telephone Adult [address] [phone] Robinson Howe MD [address] [place] [address] [phone] Faxed Order Social History Tobacco Use Types [...] on filedocumented in this encounter Care Teams Horse Buyer Relationship Specialty Start Date End Date Robinson Howe MD [address] [place] [address] PCP - General Internal Medicine 11/03/14 04/13/20 Jesus Monterroso MD [address] [place] [address] PCP - General Internal Medicine 04/14/20 07/05/20 Abram Gardner MD [address] [place] [address] PCP - General Internal Medicine 07/06/20 12/24/20 Michael Gillette MD [address] [place] [address] PCP - General Internal Medicine 12/25/20 06/28/21 [facility], Pcp [address] [place] [address] PCP - General Internal Medicine 06/29/21 11/14/21 Napoleon Linda [address] [place] [address] PCP - General Internal Medicine 11/15/21 04/20/22 [facility], Pcp [address] [place] [address] PCP - General Internal Medicine 04/21/22 documented as of this encounter
--- OUTSIDE RECORDS SUMMARY | 2024-10-18 12:23 | XMS_ITS | Encounter Summary ---
Author Organization [facility] Address [address] [place] [address] Care Team Providers Care Dairy Cattle Farm Manager Name Role Phone Michael Gillette MD Primary Care Provider Driss nguyen [facility], Pcp Primary Care Provider Napoleon Mejia Primary Care Provider [phone] [facility], Pcp Primary Care Provider Maria T grace Encounter Details Date Type Department Care Team Description 01/26/2021 Manager Latin Report Medical Records [address] [place] [address] Osmar Ayala MD Social History Tobacco Use [...] on filedocumented in this encounter Care Teams Dairy Cattle Farm Manager Relationship Specialty Start Date End Date Michael Gillette MD PCP - General Internal Medicine 12/25/20 06/28/21 [facility], Pcp PCP - General Internal Medicine 06/29/21 11/14/21 Napoleon Linda [address] [place] [address] PCP - General Internal Medicine 11/15/21 04/20/22 [facility], Pcp PCP - General Internal Medicine 04/21/22 documented as of this encounter
--- OUTSIDE RECORDS SUMMARY | 2024-10-18 12:23 | XMS_ITS | Encounter Summary ---
Author Organization [facility] Address [address] [place] [address] Care Team Providers Care Dictaphone Typist Name Role Phone Robinson Howe MD Primary Care Provider [phone] Jesus Monterroso MD Primary Care Provider Abram Flores MD Primary Care Provider Michael Hinojosa MD Primary Care Provider Driss nguyen [facility], Pcp Primary Care Provider Napoleon Mejia Primary Care Provider [phone] [facility], Pcp Primary Care Provider Maria T grace Encounter Details Date Type Department Care Team Description 07/05/2017 Secondary School Registrar Report Medical Records [address] [place] [address] Jorge Perez Social History Tobacco Use Types [...] on filedocumented in this encounter Care Teams Dictaphone Typist Relationship Specialty Start Date End Date Robinson Howe MD [address] [place] [address] [id number] PCP - General Internal Medicine 11/03/14 04/13/20 Jesus Monterroso MD [address] [place] [address] PCP - General Internal Medicine 04/14/20 07/05/20 Abram Gardner MD [address] [place] [address] PCP - General Internal Medicine 07/06/20 12/24/20 Michael Gillette MD [address] [place] [address] PCP - General Internal Medicine 12/25/20 06/28/21 [facility], Pcp [address] [place], [place] [id number] PCP - General Internal Medicine 06/29/21 11/14/21 Napoleon Linda [address] [place] [address] PCP - General Internal Medicine 11/15/21 04/20/22 [facility], Pcp [address] [place] [address] PCP - General Internal Medicine 04/21/22 documented as of this encounter
--- OUTSIDE RECORDS SUMMARY | 2024-10-18 12:23 | XMS_ITS | Encounter Summary ---
Author Organization [facility] Address [address] [place] [address] Care Team Providers Care Beta Tester Name Role Phone Abram Gardner MD Primary Care Provider Michael Hinojosa MD Primary Care Provider Driss nguyen [facility], Pcp Primary Care Provider Napoleon Mejia Primary Care Provider [phone] [facility] Pcp Primary Care Provider Unavailabl e Reason for Visit * Reason Comments E-prescribe Rx Request Encounter Details Date Type Department Care Team Description 09/27/2020 Refill Orthopedics-[address] [address] Francis Ndiaye PAYangC [address] [place] [address] [phone] E-prescribe Rx Request Social History Tobacco Use [...] on filedocumented in this encounter Care Teams Beta Tester Relationship Specialty Start Date End Date Abram Gardner MD PCP - General Internal Medicine 07/06/20 12/24/20 Michael Gillette MD PCP - General Internal Medicine 12/25/20 06/28/21 [facility] Pcp PCP - General Internal Medicine 06/29/21 11/14/21 Napoleon Linda [address] [place] [address] PCP - General Internal Medicine 11/15/21 04/20/22 [facility], Pcp PCP - General Internal Medicine 04/21/22 documented as of this encounter
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
--- OUTSIDE RECORDS SUMMARY | 2024-10-18 12:23 | XMS_ITS | Encounter Summary ---
Author Organization [facility] Address [address] [place] [address] Care Team Providers Care Director Of Group Counseling Program Name Role Phone Michael Gillette MD Primary Care Provider Driss nguyen [facility], Pcp Primary Care Provider Napoleon Mejia Primary Care Provider [phone] [facility], Pcp Primary Care Provider Unavailabl e Reason for Visit * Reason Comments E-prescribe Rx Request Encounter Details Date Type Department Care Team Description 03/28/2021 Refill Adult Medicine [address] [address] Abram Gardner MD E-prescribe Rx Request Social [...] ?? Patients current insurance carrier is: Payor: [facility] MCR / Plan: O $0 [facility] [id number] / Product Type: HMO [id number] ?? documented in this encounter Plan of Treatment Not on file documented as of this encounter Visit Diagnoses Diagnosis Type 2 diabetes mellitus with diabetic neuropathy, with long-term current use of insulin (HCC) Essential hypertension Unspecified essential hypertension Other specified hypothyroidism Gastroesophageal reflux disease without esophagitis Esophageal reflux Need for prophylactic vaccination and inoculation against influenza documented in this encounter Care Teams Director Of Group Counseling Program Relationship Specialty Start Date End Date Michael Gillette MD PCP - General Internal Medicine 12/25/20 06/28/21 [facility] Pcp PCP - General Internal Medicine 06/29/21 11/14/21 Napoleon Linda [address] [place] [address] PCP - General Internal Medicine 11/15/21 04/20/22 [facility], Pcp PCP - General Internal Medicine 04/21/22 documented as of this encounter
--- OUTSIDE RECORDS SUMMARY | 2024-10-18 12:23 | XMS_ITS | Encounter Summary ---
Author Organization [facility] Address [address] [place] [address] Care Team Providers Care Bowling Ball Engraver Name Role Phone Robinson Howe MD Primary Care Provider [phone] Jesus Monterroso MD Primary Care Provider Abram Flores MD Primary Care Provider Unavailab Michael Duvall MD Primary Care Provider Mariaelenavagabriel nguyen [facility], Pcp Primary Care Provider Unavailabl e Napoleon Linda Primary Care Provider [phone] [facility], Pcp Primary Care Provider Unavailabl e Reason for Visit * Reason Onset Date Comments refill request 06/10/2019 Encounter Details Date Type Department Care Team Description 06/10/2019 Refill Adult Medicine [address] [phone] Robinson Howe MD [address] [place] [address] [phone] refill request Social History Tobacco Use Types [...] - 06/10/2019 5:[address] Ayala ([facility]) prescribed the Advair. However it's possible the [...] N/A Patients current insurance carrier is: Payor: [facility] MCR / Plan[facility] [id number] / Product Type: HMO [id number] documented in this encounter Plan of Treatment Not on file documented as of this encounter Visit Diagnoses Not on filedocumented in this encounter Care Teams Bowling Ball Engraver Relationship Specialty Start Date End Date Robinson Howe MD [address] [place] [address] PCP - General Internal Medicine 11/03/14 04/13/20 Jesus Monterroso MD [address] [place] [address] PCP - General Internal Medicine 04/14/20 07/05/20 Abram Gardner MD [address] [place] [address] PCP - General Internal Medicine 07/06/20 12/24/20 Michael Gillette MD [address] [place] [address] PCP - General Internal Medicine 12/25/20 06/28/21 [facility], Pcp [address] [place] [address] PCP - General Internal Medicine 06/29/21 11/14/21 Napoleon Linda [address] [place] [address] PCP - General Internal Medicine 11/15/21 04/20/22 [facility], Pcp [address] [place], [place] [phone] PCP - General Internal Medicine 04/21/22 documented as of this encounter
--- OUTSIDE RECORDS SUMMARY | 2024-10-18 12:23 | XMS_ITS | Encounter Summary ---
Author Organization [facility] Address [address] [place] [address] Care Team Providers Care Account Management Specialist Name Role Phone Michael Gillette MD Primary Care Provider Driss nguyen [facility], Pcp Primary Care Provider Napoleon Mejia Primary Care Provider [phone] [facility], Pcp Primary Care Provider Maria T grace Encounter Details Date Type Department Care Team Description 01/13/2021 Orders Only Adult Medicine [address] [address] Michael Gillette MD Preoperative examination; Screening for deficiency anemia; 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 Social History [...] 01/13/2022 PROTHROMBIN TIME Lab Routine Preoperative examination 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 Expected: 01/13/2021 (Approximate), Expires: 01/13/2022 THROMBOPLASTIN TIME, PARTIAL Lab Routine Preoperative examination shelter current use of anticoagulant therapy Expected: 01/13/2021 (Approximate), Expires: 01/13/2022 URINALYSIS, ROUTINE Lab Routine Preoperative examination Expected: 01/13/2021 (Approximate), Expires: 01/13/2022 documented as of this encounter Visit Diagnoses Diagnosis Preoperative examination Preoperative examination, unspecified Screening for deficiency anemia Screening for other and unspecified deficiency anemia shelter current use of anticoagulant therapy documented in this encounter Care Teams Account Management Specialist Relationship Specialty Start Date End Date Michael Gillette MD PCP - General Internal Medicine 12/25/20 06/28/21 [facility], Pcp PCP - General Internal Medicine 06/29/21 11/14/21 Napoleon Linda [address] [place] [address] PCP - General Internal Medicine 11/15/21 04/20/22 [facility], Pcp PCP - General Internal Medicine 04/21/22 documented as of this encounter
--- OUTSIDE RECORDS SUMMARY | 2024-10-18 12:23 | XMS_ITS | Encounter Summary ---
Author Organization [facility] Address [address] [place] [address] Care Team Providers Care Excavating Machine Operator Name Role Phone Abram Gardner MD Primary Care Provider UnavailMichael Elmore MD Primary [facility] Primary Care Provider Napoleon Mejia Primary Care Provider [phone] [facility], Pcp Primary Care Provider Maria T grace Encounter Details Date Type Department Care Team Description 11/06/2020 Refill Adult [address] [address] Abram Gardner MD Social History Tobacco Use [...] on filedocumented in this encounter Care Teams Excavating Machine Operator Relationship Specialty Start Date End Date Abram Gardner MD PCP - General Internal Medicine 07/06/20 12/24/20 Michael Gillette MD PCP - General Internal Medicine 12/25/20 06/28/21 [facility], Pcp PCP - General Internal Medicine 06/29/21 11/14/21 Napoleon Linda [address] [place] [address] PCP - General Internal Medicine 11/15/21 04/20/22 [facility], Pcp PCP - General Internal Medicine 04/21/22 documented as of this encounter
--- OUTSIDE RECORDS SUMMARY | 2024-10-18 12:23 | XMS_ITS | Encounter Summary ---
Author Organization [facility] Address [address] [place] [address] Care Team Providers Care Local Announcer Name Role Phone Robinson Howe MD Primary Care Provider [phone] Jesus Monterroso MD Primary Care Provider Abram Flores MD Primary Care Provider UnavailMichael Elmore MD Primary Care Provider Driss nguyen [facility], Pcp Primary Care Provider UnavailNapoleon White Primary Care Provider [phone] [facility], Pcp Primary Care Provider Maria T grace Encounter Details Date Type Department Care Team Description 12/02/2019 Orders Only Adult Medicine [address] [address] [place], DAINA Cough (Primary Dx) Social [...] Primary documented in this encounter Care Teams Local Announcer Relationship Specialty Start Date End Date Robinson Howe MD [address] [place] [address] PCP - General Internal Medicine 11/03/14 04/13/20 Jesus Monterroso MD [address] [place] [address] PCP - General Internal Medicine 04/14/20 07/05/20 Abram Gardner MD [address] [place] [address] PCP - General Internal Medicine 07/06/20 12/24/20 Michael Gillette MD [address] [place] [address] PCP - General Internal Medicine 12/25/20 06/28/21 [facility], Pcp [address] [place] [address] PCP - General Internal Medicine 06/29/21 11/14/21 Napoleon Linda [address] [place] [address] PCP - General Internal Medicine 11/15/21 04/20/22 [facility], Pcp [address] [place] [address] PCP - General Internal Medicine 04/21/22 documented as of this encounter
--- OUTSIDE RECORDS SUMMARY | 2024-10-18 12:23 | XMS_ITS | Encounter Summary ---
Author Organization [facility] Address [address] [place] [address] Care Team Providers Care Investment Representative Name Role Phone Robinson Howe MD Primary Care Provider + [phone] Jesus Monterroso MD Primary Care Provider Abram Flores MD Primary Care Provider Unavailab Michael Duvall MD Primary Care Provider Driss nguyen [facility], Pcp Primary Care Provider Unavailabl Napoleon Ramirez Primary Care Provider [facility], Pcp Primary Care Provider Unavailabl e Reason for Visit * Reason Onset Date Comments fatigue/malaise 10/01/2019 Encounter Details Date Type Department Care Team Description 10/01/2019 Telephone Adult [address] [id number] Robinson Howe MD [address] [place] [address] [phone] fatigue/malaise Social History Tobacco Use Types Packs/Day [...] her thyroid is off Was seen in [facility] last week and tested negative Asking [...] 3-4 DAYS PCP: Robinson Howe Payor: [facility] MCR / Plan: HMO $0 [facility] [id number] / Product Type: HMO [id number] documented in this encounter Plan of Treatment Not on file documented as of this encounter Results * 25 HYDROXY INCLUDES FRACTIONS IF PERFORMED (10/02/2019 1:46 PM EDT) VITAMIN D, 25-HYDROXY 43 30 - 80 ng/mL 10/02/2019 5:24 PM EDT [facility] 10/02/2019 1:46 PM EDT 10/02/2019 1:50 PM EDT Jerod Daniel PA-C LAB [facility] * (ABNORMAL) CBC (AUTO DIFF PLATELET) (10/02/2019 1:46 PM EDT) Pathologist [facility] WHITE BLOOD COUNT 10.8 4.8 - 10.8 x10-3/uL 10/02/2019 5:35 PM EDT [facility] RED BLOOD COUNT 4.4 3.8 - 4.8 [...] 4.00 uIU/ml 10/02/2019 5:25 PM EDT [facility] 10/02/2019 1:46 PM EDT 10/02/2019 1:50 PM EDT Jerod Daniel PA-C LAB Performing Organization Address [facility]/State/ZIP Co de Phone Number [facility] * MICROALBUMIN/CREATININE, URINE (10/02/2019 1:46 PM EDT) CREATININE, RANDOM URINE 95 mg/dL 10/02/2019 5:33 PM EDT [facility] MICROALBUMIN, RANDOM 27.0 0.0 - 29.0 mg/L 10/02/2019 5:42 PM EDT [facility] MICROALB/CRE RATIO RANDOM 28.4 0.0 - 30.0 mg/G 10/02/2019 5:42 PM EDT [facility] 10/02/2019 1:46 PM EDT 10/02/2019 1:50 PM EDT Jerod Daniel PA-C LAB Performing Organization Address [facility]/ZIP Co de Phone Number [facility] * COMPREHENSIVE METABOLIC PANEL (10/02/2019 1:46 PM EDT) GLUCOSE 90 70 - 100 mg/dL 10/02/2019 5:23 PM EDT [facility] Comment:Reference range appl icable to fasting specimens only Blood Urea Nitrogen 17 5 - 25 mg/dL 10/02/2019 5:23 PM EDT [facility] CREAT 0.81 0.5 - 1.1 mg/dL 10/02/2019 5:23 PM EDT [facility] GLOMERULAR FILTRATION RATE > 60 10/02/2019 5:23 PM EDT [facility] Comment: If patient is -Stateless, multiply result by 1.21 Chronic Kidney Disease: < 60 ml/min/1.73 square meters Kidney Failure: < 15 ml/min/1.73 square meters NA 141 135 - 145 mEq/L 10/02/2019 5:23 PM EDT [facility] K 4.0 3.5 - 5.5 mmol/L 10/02/2019 [...] PM EDT Jerod Daniel PA-C LAB [facility] * HEMOGLOBIN A1C (10/02/2019 1:46 PM EDT) GLYCATED HEMOGLOBIN A1C 6.4 <6.5 % 10/02/2019 7:43 PM EDT [facility] ESTIMATED AVERAGE GLUCOSE 137 mg/dL 10/02/2019 7:43 PM EDT [facility] 10/02/2019 1:46 PM EDT 10/02/2019 1:50 PM EDT Jerod Daniel PA-C LAB Performing Organization Address City/[facility]/ZIP Co de Phone Number [facility] * (ABNORMAL) FOLIC ACID (10/02/2019 1:46 PM EDT) FOLATE > 20.0(H) 2.8 - 17.0 ng/ml 10/02/2019 5:46 PM EDT [facility] 10/02/2019 1:46 PM EDT 10/02/2019 1:50 PM EDT Jerod Daniel PA-C LAB Performing Organization Address City/[facility]/ZIP Co de Phone Number [facility] * (ABNORMAL) VITAMIN B-12, ASSAY (10/02/2019 1:46 PM EDT) VITAMIN B12 1593(H) 250 - 900 pg/mL 10/02/2019 5:46 PM EDT [facility] 10/02/2019 1:46 PM EDT 10/02/2019 1:50 PM EDT Jerod Daniel PA-C LAB [facility] documented in this encounter Visit Diagnoses Diagnosis Type 2 diabetes mellitus with diabetic neuropathy, without long-term current use of insulin (HCC)- Primary documented in this encounter Care Teams Investment Representative Relationship Specialty Start Date End Date Robinson Howe MD [address] [place] [address] PCP - General Internal Medicine 11/03/14 04/13/20 Jesus Monterroso MD [address] [place] [address] PCP - General Internal Medicine 04/14/20 07/05/20 Abram Gardner MD [address] [place] [address] PCP - General Internal Medicine 07/06/20 12/24/20 Michael Gillette MD [address] [place] [address] PCP - General Internal Medicine 12/25/20 06/28/21 [facility], Pcp [address] [place] [address] PCP - General Internal Medicine 06/29/21 11/14/21 Napoleon Linda [address] [place] [address] PCP - General Internal Medicine 11/15/21 04/20/22 [facility], Pcp [address] [place] [address] PCP - General Internal Medicine 04/21/22 documented as of this encounter
--- OUTSIDE RECORDS SUMMARY | 2024-10-18 12:23 | XMS_ITS | Encounter Summary ---
Author Organization [facility] Address [address] [place] [address] Care Team Providers Care Instructional Materials Director Name Role Phone Abram Gardner MD Primary Care Provider Michael Hinojosa MD Primary Care Provider Driss nguyen [facility], Pcp Primary Care Provider Napoleon Mejia Primary Care Provider [phone] [facility] Pcp Primary Care Provider Unavailabl e Reason for Visit * Reason Comments E-prescribe Rx Request Encounter Details Date Type Department Care Team Description 10/27/2020 Refill Adult Medicine [address] [address] Jerod Daniel PA-C [address] [place] [address] E-prescribe Rx Request Social History Tobacco Use [...] N/A Patients current insurance carrier is: Payor: [facility] MCR / Plan: O $0 [facility] [id number] / Product Type: HMO [id number] documented in this encounter Plan of Treatment [...] exacerbation documented in this encounter Care Teams Instructional Materials Director Relationship Specialty Start Date End Date Abram Gardner MD PCP - General Internal Medicine 07/06/20 12/24/20 Michael Gillette MD PCP - General Internal Medicine 12/25/20 06/28/21 [facility] Pcp PCP - General Internal Medicine 06/29/21 11/14/21 Napoleon Linda [address] [place] [address] PCP - General Internal Medicine 11/15/21 04/20/22 [facility] Pcp PCP - General Internal Medicine 04/21/22 documented as of this encounter
--- OUTSIDE RECORDS SUMMARY | 2024-10-18 12:23 | XMS_ITS | Encounter Summary ---
Author Organization [facility] Address [address] [place] [address] Care Team Providers Care Package Yarns Drying Machine Operator Name Role Phone Robinson Howe MD Primary Care Provider + [phone] Jesus Monterroso MD Primary Care Provider Abram Flores MD Primary Care Provider Michael Hinojosa MD Primary Care Provider Driss nguyen [facility], Pcp Primary Care Provider Napoleon Mejia Primary Care Provider [phone] [facility], Pcp Primary Care Provider Maria T grace Encounter Details Date Type Department Care Team Description 08/08/2017 Business Doc Medical Records [address] [place] [address] Abstract, Provider Social History Tobacco Use Types [...] on filedocumented in this encounter Care Teams Package Yarns Drying Machine Operator Relationship Specialty Start Date End Date Robinson Howe MD [address] [place] [address] PCP - General Internal Medicine 11/03/14 04/13/20 Jesus Monterroso MD [address] [place] [address] PCP - General Internal Medicine 04/14/20 07/05/20 Abram Gardner MD [address] [place] [address] PCP - General Internal Medicine 07/06/20 12/24/20 Michael Gillette MD [address] [place] [address] PCP - General Internal Medicine 12/25/20 06/28/21 [facility], Pcp [address] [place], [place] [phone] PCP - General Internal Medicine 06/29/21 11/14/21 Napoleon Linda [address] [place] [address] PCP - General Internal Medicine 11/15/21 04/20/22 [facility], Pcp [address] [place] [address] PCP - General Internal Medicine 04/21/22 documented as of this encounter
--- OUTSIDE RECORDS SUMMARY | 2024-10-18 12:23 | XMS_ITS | Clinical Summary ---
Author Organization [facility] Address [address] [place] [address] Care Team Providers Care Pt Sitter Name Role Phone [facility], Pcp Primary Care [...] Take by mouth. 0 Activ e Biotin 42439 MCG Tab Take by mouth. 0 Active [...] neuropathy, with long-term current use of insulin ([facility]),Essential hypertension,Other specified hypothyroidism,Keli roesophageal reflux disease [...] meals: 110-160 Bedtime: 110-150 Use the Results Bring your glucometer to every appointment Write your fingerstick blood sugars down on a log sheet or record book. Bring them to your appointment Look for patterns in the numbers. The [...] year Health Maintenance Due Topic Date Due Adult Immunization: Zostavax For Patients Over 60 2008 Depression Screen 06/18/2015 Fall Risk Assessment 06/18/2015 Diabetes: Annual Eye Exam 12/10/2015 Diabetes: Annual Care Plan 01/20/2016 Your Action [...] just unsure what to do Educational Resources [employer] (www.diabetes.org) Centers for Disease Control [...] sleep apnea mild AHI 7 02/08 Overview: [facility] Home Polysomnogram: Date 02/05/2018; AHI 7, Unclassified apneas 3; Obstructive apneas 2; Central apneas 4; Mixed apneas 0; hypopneas 50; average oxygen saturation 93% (lowest 86% without saturations <88% for 5% or more of study) [facility] Polysomnogram treatment study. Date 10/24/2018. Wt [...] Overview: Stress test with MIBI done in [place], 11/08/12 shows no evidence of pharmacological induced [...] 64 01/05/2021 8:58 AM EST Temperature 36.6 C (97.8 F) 01/05/2021 8:58 AM EST Respiratory Rate 12 01/05/2021 8:58 AM EST [...] 01/05/2021, , 07/06/2020, Additional history exists INFLUENZA (#1) 2024 11/06/2020, 06/2020, 12/24/2018, Additional history exists DTAP/TDAP/TD (2 - Td or Tdap) 02/18/2025 02/18/2015 (Refused) COLON CANCER SCREENING 03/09/2025 , 09/09/2014 (Completed), 09/09/2014, Additional history exists BONE DENSITY SCREENING 07/29/2029 07/29/2014 PNEUMOCOCCAL VACCINE Completed 01/19/2015, 05/24/19 14 HEPATITIS C SCREENING Completed 06/04/2015 Care Teams Pt Sitter Relationship Specialty Start Date End Date [facility], Pcp PCP - General Internal Medicine 04/21/22
--- OUTSIDE RECORDS SUMMARY | 2024-10-18 12:24 | XMS_ITS | Encounter Summary ---
Author Organization [facility] Address [address] [place] [address] Care Team Providers Care Corporate Safety Director Name Role Phone Robinson Howe MD Primary Care Provider + [phone] Jesus Monterroso MD Primary Care Provider Abram Flores MD Primary Care Provider Unavailab Michael Duvall MD Primary Care Provider Driss nguyen [facility], Pcp Primary Care Provider UnavailNapoleon White Primary Care Provider [phone] [facility], Pcp Primary Care Provider Unavailabl e Reason for Visit * Reason Comments E-prescribe Rx Request Encounter Details Date Type Department Care Team Description 01/05/2017 Refill Adult Medicine [address] [phone] Jerod Daniel PA-C [address] [place] [address] [phone] E-prescribe Rx Request Social History Tobacco Use [...] / Plan: [place] / Product Type: MEDICARE [id number] documented in this encounter Plan of Treatment Not on file documented as of this encounter Visit Diagnoses Not on filedocumented in this encounter Care Teams Corporate Safety Director Relationship Specialty Start Date End Date Robinson Howe MD [address] [place] [address] PCP - General Internal Medicine 11/03/14 04/13/20 Jesus Monterroso MD [address] [place] [address] PCP - General Internal Medicine 04/14/20 07/05/20 Abram Gardner MD [address] [place] [address] PCP - General Internal Medicine 07/06/20 12/24/20 Michael Gillette MD [address] [place] [address] PCP - General Internal Medicine 12/25/20 06/28/21 Snata Berg [address] [place] [address] PCP - General Internal Medicine 06/29/21 11/14/21 Napoleon Linda [address] [place] [address] PCP - General Internal Medicine 11/15/21 04/20/22 [facility] [place] [address] [place] [address] PCP - General Internal Medicine 04/21/22 documented as of this encounter
--- OUTSIDE RECORDS SUMMARY | 2024-10-18 12:24 | XMS_ITS | Encounter Summary ---
Author Organization [facility] Address [address] [place] [address] Care Team Providers Care Product Development Director Name Role Phone Abram Gardner MD Primary Care Provider Michael Hinojosa MD [facility] Primary Care Provider Napoleon Mejia Primary Care Provider [phone] [facility], Pcp Primary Care Provider Maria T grace Encounter Details Date Type Department Care Team Description 08/05/2020 Telephone Adult Medicine [address] [address] Abram Gardner MD Social History Tobacco Use [...] on filedocumented in this encounter Care Teams Product Development Director Relationship Specialty Start Date End Date Abram Gardner MD PCP - General Internal Medicine 07/06/20 12/24/20 Michael Gillette MD PCP - General Internal Medicine 12/25/20 06/28/21 [facility], Pcp PCP - General Internal Medicine 06/29/21 11/14/21 Napoleon Linda [address] [place] [address] PCP - General Internal Medicine 11/15/21 04/20/22 [facility], Pcp PCP - General Internal Medicine 04/21/22 documented as of this encounter
--- OUTSIDE RECORDS SUMMARY | 2024-10-18 12:24 | XMS_ITS | Encounter Summary ---
Author Organization [facility] Address [address] [place] [address] Care Team Providers Care Grounds Restoration Specialist Name Role Phone Robinson Howe MD Primary Care Provider + [phone] Jesus Monterroso MD Primary Care Provider Abram Flores MD Primary Care Provider Unavailab Michael Duvall MD Primary Care Provider Unavagabriel nguyen [facility], Pcp Primary Care Provider Unavailabl e Napoleon Linda Primary Care Provider [phone] [facility], Pcp Primary Care Provider Unavailabl e Reason for Referral * Non JERED (Routine) - Authorized/Booked Specialty Diagnoses / Procedures Referred By Contjericho t Referred To Contact Pulmonology Procedures REFERRAL TO PULMONOLOGY Terrence Corral MD [address] [facility] [address] [place] [address] Pulmo/[place] 175 175 [facility] [address] [place] [address] Referral ID Status Reason Start Date Expiration Date V isits Requested Visits Authorized [id number] Authorized/B ooked 02/09/2018 02/09/2019 1 1 Encounter Details Date Type Department Care Team Description 02/09/2018 Telephone Pulmonology [address] [place], [place] [phone] Terrence Corral MD [address] [facility] [address] [place] [address] Social History Tobacco Use Types [...] Dr Hardin Mild sleep apnea. Please have meat butcher arrange ALISA appt with Mumtaz or me. documented in this encounter Plan of Treatment Not on file documented as of this encounter Visit Diagnoses Not on filedocumented in this encounter Care Teams Grounds Restoration Specialist Relationship Specialty Start Date End Date Robinson Howe MD [address] [place] [address] PCP - General Internal Medicine 11/03/14 04/13/20 Jesus Monterroso MD [address] [place] [address] PCP - General Internal Medicine 04/14/20 07/05/20 Abram Gardner MD [address] [place] [address] PCP - General Internal Medicine 07/06/20 12/24/20 Michael Gillette MD [address] [place] [address] PCP - General Internal Medicine 12/25/20 06/28/21 [facility], Pcp [address] [place] [address] PCP - General Internal Medicine 06/29/21 11/14/21 Napoleon Linda [address] [place] [address] PCP - General Internal Medicine 11/15/21 04/20/22 [facility], Pcp [address] [place] [address] PCP - General Internal Medicine 04/21/22 documented as of this encounter
--- OUTSIDE RECORDS SUMMARY | 2024-10-18 12:24 | XMS_ITS | Encounter Summary ---
Author Organization [facility] Address [address] [place] [address] Care Team Providers Care Firer Tunnel Kiln Name Role Phone Robinson Howe MD Primary Care Provider + [phone] Jesus Monterroso MD Primary Care Provider Abram Flores MD Primary Care Provider Unavailab Michael Duvall MD Primary Care Provider Driss nguyen [facility], Pcp Primary Care Provider Unavailabl e Napoleon Linda Primary Care Provider [phone] [facility], Pcp Primary Care Provider Unavailabl e Reason for Visit * Reason Onset Date Comments TEST RESULTS 07/06/2016 Encounter Details Date Type Department Care Team Description 07/06/2016 Telephone Adult [address] [phone] Robinson Howe MD [address] [place] [address] [phone] TEST RESULTS Social History Tobacco Use Types [...] on filedocumented in this encounter Care Teams Firer Tunnel Kiln Relationship Specialty Start Date End Date Robinson Howe MD [address] [place] [address] PCP - General Internal Medicine 11/03/14 04/13/20 Jesus Monterroso MD [address] [place] [address] PCP - General Internal Medicine 04/14/20 07/05/20 Abram Gardner MD [address] [place] [address] PCP - General Internal Medicine 07/06/20 12/24/20 Michael Gillette MD [address] [place] [address] PCP - General Internal Medicine 12/25/20 06/28/21 [facility], Pcp [address] [place] [address] PCP - General Internal Medicine 06/29/21 11/14/21 Napoleon Linda [address] [place], [place] [phone] PCP - General Internal Medicine 11/15/21 04/20/22 [facility], Pcp [address] [place] [address] PCP - General Internal Medicine 04/21/22 documented as of this encounter
--- OUTSIDE RECORDS SUMMARY | 2024-10-18 12:24 | XMS_ITS | Encounter Summary ---
Author Organization [facility] Address [address] [place] [address] Care Team Providers Care Manager Credit Collections Name Role Phone Robinson Howe MD Primary Care Provider + [phone] Jesus Monterroso MD Primary Care Provider Abram Flores MD Primary Care Provider Unavailab Michael Duvall MD Primary Care Provider Mariaelenavagabriel nguyen Counts Include [facility], Pcp Primary Care Provider UnavailNapoleon White Primary Care Provider [phone] Counts Include [facility], Pcp Primary Care Provider Unavailabl e Reason for Visit * Reason Comments E-prescribe Rx Request Encounter Details Date Type Department Care Team Description 07/20/2016 Refill Physiatry - [address] [address] Alexandria Todd MD [address] [place] [address] [place] [id number] E-prescribe Rx Request Social History Tobacco Use [...] filedocumented in this encounter Care Teams Manager Credit Collections Relationship Specialty Start Date End Date Robinson Howe MD [address] [place] [address] PCP - General Internal Medicine 11/03/14 04/13/20 Jesus Monterroso MD [address] [place] [address] PCP - General Internal Medicine 04/14/20 07/05/20 Abram Gardner MD [address] [place], [place] [phone] PCP - General Internal Medicine 07/06/20 12/24/20 Michael Gillette MD [address] [place] [address] PCP - General Internal Medicine 12/25/20 06/28/21 [facility], Pcp [address] [place] [address] PCP - General Internal Medicine 06/29/21 11/14/21 Napoleon Linda [address] [place], [place] [phone] PCP - General Internal Medicine 11/15/21 04/20/22 Counts Include [facility], Pcp [address] [place], [place] [phone] PCP - General Internal Medicine 04/21/22 documented as of this encounter
--- OUTSIDE RECORDS SUMMARY | 2024-10-18 12:24 | XMS_ITS | Encounter Summary ---
Author Organization [facility] Address [address] [place] [address] Care Team Providers Care Trailer Body Assembler Name Role Phone Ruddy Cruz MD Primary Care Provider Unavail able Robinson Howe MD Primary Care Provider [phone] Jesus Monterroso MD Primary Care Provider Abram Flores MD Primary Care Provider Unavailab Michael Duvall MD Primary Care Provider Mariaelenavagabriel nguyen [facility], Pcp Primary Care Provider UnavailNapoleon White Primary Care Provider [phone] [facility], Pcp Primary Care Provider Unavailabl e Encounter Details Date Type Department Care Team Description 07/31/2014 Business Doc Medical Records [address] [place] [address] Abstract, Provider Social History Tobacco Use Types [...] on filedocumented in this encounter Care Teams Trailer Body Assembler Relationship Specialty Start Date End Date Ruddy Cruz MD PCP - General Internal Medicine 12/19/13 11/02/14 Robinson Howe MD [address] [place] [address] [phone] PCP - General Internal Medicine 11/03/14 04/13/20 Jesus Monterroso MD [address] [place] [address] PCP - General Internal Medicine 04/14/20 07/05/20 Abram Gardner MD [address] [place] [address] PCP - General Internal Medicine 07/06/20 12/24/20 Michael Gillette MD [address] [place] [address] PCP - General Internal Medicine 12/25/20 06/28/21 [facility], Pcp [address] [place] [address] PCP - General Internal Medicine 06/29/21 11/14/21 Napoleon Linda [address] [place], [place] [phone] PCP - General Internal Medicine 11/15/21 04/20/22 [facility], Pcp [address] [place] [address] PCP - General Internal Medicine 04/21/22 documented as of this encounter
--- OUTSIDE RECORDS SUMMARY | 2024-10-18 12:24 | XMS_ITS | Encounter Summary ---
Author Organization [facility] Address [address] [place] [address] Care Team Providers Care Spiral Winding Machine Helper Name Role Phone Robinson Howe MD Primary Care Provider + [phone] Jesus Monterroso MD Primary Care Provider Abram Flores MD Primary Care Provider Unavailab Michael Duvall MD Primary Care Provider Driss nguyen [facility], Pcp Primary Care Provider Unavailabl Napoleon Ramirez Primary Care Provider [phone] [facility], Pcp Primary Care Provider Unavailabl e Reason for Visit * Reason Onset Date Comments Testing 06/02/2016 MRI lower extrem ity other than JT [id number] Encounter Details Date Type Department Care Team Description 06/02/2016 Telephone Adult [address] [id number] Robinson Howe MD [address] [place] [address] [phone] Testing (MRI lower extremity other than JT [id number]) Social History Tobacco Use Types Packs/Day Years [...] 06/02/2016 4:10 PM EDT Order faxed to [facility] they will contact patient with appointment information. Notification letter mailed to patient * Telephone Encounter - Alejandra Rasmussenrar - 06/02/2016 1:45 PM EDT Medicare/Medicaid No auth required 06/02/16-06/02/17 CPT-97995 [facility] Sent to [facility] for scheduling documented in this encounter Plan of Treatment Not on file documented as of this encounter Visit Diagnoses Not on filedocumented in this encounter Care Teams Spiral Winding Machine Helper Relationship Specialty Start Date End Date Robinson Howe MD [address] [place] [address] PCP - General Internal Medicine 11/03/14 04/13/20 Jesus Monterroso MD [address] [place] [address] PCP - General Internal Medicine 04/14/20 07/05/20 Abram Gardner MD [address] [place] [address] PCP - General Internal Medicine 07/06/20 12/24/20 Michael Gillette MD [address] [place] [address] PCP - General Internal Medicine 12/25/20 06/28/21 [facility], Pcp [address] [place], [place] [phone] PCP - General Internal Medicine 06/29/21 11/14/21 Napoleon Linda [address] [place] [address] PCP - General Internal Medicine 11/15/21 04/20/22 [facility], Pcp [address] [place] [address] PCP - General Internal Medicine 04/21/22 documented as of this encounter
--- OUTSIDE RECORDS SUMMARY | 2024-10-18 12:24 | XMS_ITS | Encounter Summary ---
Author Organization [facility] Address [address] [place] [address] Care Team Providers Care Leather Coverer Name Role Phone Robinson Howe MD Primary Care Provider + [phone] Jesus Monterroso MD Primary Care Provider Abram Flores MD Primary Care Provider Unavailab Michael Duvall MD Primary Care Provider Driss nguyen [facility], Pcp Primary Care Provider Unavailabl e Napoleon Linda Primary Care Provider [phone] [facility], Pcp Primary Care Provider Unavailabl e Reason for Visit * Reason Onset Date Comments Testing 06/28/2016 Encounter Details Date Type Department Care Team Description 06/28/2016 Telephone Radiology - [address] [phone] Jerod Daniel PA-C [address] [place] [address] [phone] Testing Social History Tobacco Use Types Packs/Day [...] on filedocumented in this encounter Care Teams Leather Coverer Relationship Specialty Start Date End Date Robinson Howe MD [address] [place] [address] PCP - General Internal Medicine 11/03/14 04/13/20 Jesus Monterroso MD [address] [place] [address] PCP - General Internal Medicine 04/14/20 07/05/20 Abram Gardner MD [address] [place] [address] PCP - General Internal Medicine 07/06/20 12/24/20 Michael Gillette MD [address] [place] [address] 865[address] PCP - General Internal Medicine 12/25/20 06/28/21 [facility], Pcp [address] [place] [address] PCP - General Internal Medicine 06/29/21 11/14/21 Napoleon Linda [address] [place] [address] PCP - General Internal Medicine 11/15/21 04/20/22 [facility], Pcp [address] [place] [address] PCP - General Internal Medicine 04/21/22 documented as of this encounter
--- OUTSIDE RECORDS SUMMARY | 2024-10-18 12:24 | XMS_ITS | Encounter Summary ---
Author Organization [facility] Address [address] [place] [address] Care Team Providers Care Business Performance Analyst Name Role Phone Robinson Howe MD Primary Care Provider + [phone] Jesus Monterroso MD Primary Care Provider Abram Flores MD Primary Care Provider Unavailab Michael Duvall MD Primary Care Provider Driss nguyen [facility], Pcp Primary Care Provider Unavailabl Napoleon Ramirez Primary Care Provider [phone] [facility], Pcp Primary Care Provider Unavailabl e Reason for Visit * Reason Onset Date Comments Letter 02/02/2016 FYI... Pt will n eed SP translation. Encounter Details Date Type Department Care Team Description 02/02/2016 Telephone Adult Medicine [address] [id number] Robinson Howe MD [address] [place] [address] [phone] Letter (FYI... Pt will need SP translation.) [...] (GIANCARLO) who is with Pt who is taiwanese speaking. Pt c/o right lower leg pain [...] ambulate with steady gate. 02/04/16 ([facility]) 9:00 AM 30 min Jerod Daniel PA-C [facility] Bowman Advised home care following the leg [...] nurse regarding the information below. Daughter speaks Malagasy. Please contact Kaleigh @ [phone]. * Telephone Encounter - Stephanie Camp - 02/02/2016 6:48 PM EST Spoke with Pt who c/o right lower leg pain for several months. Reports she was seen here for it in the past and had a negative sonogram . Hx shows Pt was seen and evaluated for right calf pain on 01/01/16 with negative US for DVT. Pt is primarily taiwanese speaking and advised I would call back shortly with an Wheel Truing Machine Tender service. Verbalized understanding and agreed with plan. Pt is taiwanese speaking only. Interpretor service used via [employer]. Interpretor # [id number] assisted with call. Phone call returned, no answer, left message to return call. * Telephone Encounter - Clara ClancyvedoYangDe - 02/02/2016 4:23 PM EST Letter requested for: Pt is looking to move closer to home/family Reason for letter: Att: Stellarcasa SA Specific notations needed in body of letter: Pt feels depressed living far away in [place] and would like a letter stateting that by moving closer to home near family will help improve her feeling of depression Date needed for completion: As soon as possible When completed: Will pharmacy picking tech-call when completed: documented in this encounter Plan of Treatment Not on file documented as of this encounter Visit Diagnoses Not on filedocumented in this encounter Care Teams Business Performance Analyst Relationship Specialty Start Date End Date Robinson Howe MD [address] [place] [address] PCP - General Internal Medicine 11/03/14 04/13/20 Jesus Monterroso MD [address] [place] [address] PCP - General Internal Medicine 04/14/20 07/05/20 Abram Gardner MD [address] [place] [address] PCP - General Internal Medicine 07/06/20 12/24/20 Michael Glilette MD [address] [place] [address] 69[address] PCP - General Internal Medicine 12/25/20 06/28/21 [facility], Pcp [address] [place] [address] PCP - General Internal Medicine 06/29/21 11/14/21 Napoleon Linda [address] [place], [place] [phone] PCP - General Internal Medicine 11/15/21 04/20/22 [facility], Pcp [address] [place] [address] ANTONIO Bowman [address] PCP - General Internal Medicine 04/21/22 documented as of this encounter
--- OUTSIDE RECORDS SUMMARY | 2024-10-18 12:24 | XMS_ITS | Encounter Summary ---
Author Organization [facility] Address [address] [place] [address] Care Team Providers Care Boiler Technician Name Role Phone Robinson Howe MD Primary Care Provider + [phone] Jesus Monterroso MD Primary Care Provider Abram Flores MD Primary Care Provider Michael Hinojosa MD Primary Care Provider Driss nguyen [facility], Pcp Primary Care Provider Napoleon Mejia Primary Care Provider [phone] [facility] Primary Care Provider Maria T grace Encounter Details Date Type Department Care Team Description 05/05/2016 SCAN Medical Records [address] [place] [address] 58[address] Abstract, Provider Social History Tobacco Use Types [...] on filedocumented in this encounter Care Teams Boiler Technician Relationship Specialty Start Date End Date Robinson Howe MD [address] [place] [address] PCP - General Internal Medicine 11/03/14 04/13/20 Jesus Monterroso MD [address] [place] [address] 71089 PCP - General Internal Medicine 04/14/20 07/05/20 Abram Gardner MD [address] [place] [address] 10426 PCP - General Internal Medicine 07/06/20 12/24/20 Michael Gillette MD [address] [place] [address] 81853 PCP - General Internal Medicine 12/25/20 06/28/21 [facility] [address] [place], [place] [phone] PCP - General Internal Medicine 06/29/21 11/14/21 Napoleon Linda [address] [place] [address] PCP - General Internal Medicine 11/15/21 04/20/22 [facility] [address] [place] [address] 22460 PCP - General Internal Medicine 04/21/22 documented as of this encounter
--- OUTSIDE RECORDS SUMMARY | 2024-10-18 12:24 | XMS_ITS | Encounter Summary ---
Author Organization [facility] Address [address] [place] [address] Care Team Providers Care Baker Biscuit Name Role Phone Robinson Howe MD Primary Care Provider + [phone] Jesus Monterroso MD Primary Care Provider Abram Flores MD Primary Care Provider Unavailab Michael Duvall MD Primary Care Provider Driss nguyen [facility], Pcp Primary Care Provider UnavailNapoleon White Primary Care Provider [phone] [facility], Pcp Primary Care Provider Unavailabl e Reason for Visit * Reason Comments E-prescribe Rx Request Encounter Details Date Type Department Care Team Description 09/17/2016 Refill Adult Medicine [address] [phone] Jerod Daniel PA-C [address] [place] [address] [phone] E-prescribe Rx Request Social History Tobacco Use [...] / Plan: [place] / Product Type: MEDICARE [id number] documented in this encounter Plan of Treatment [...] exacerbation documented in this encounter Care Teams Baker Biscuit Relationship Specialty Start Date End Date Robinson Howe MD [address] [place] [address] PCP - General Internal Medicine 11/03/14 04/13/20 Jesus Monterroso MD [address] [place] [address] 39427 PCP - General Internal Medicine 04/14/20 07/05/20 Abram Gardner MD [address] [place] [address] 25090 PCP - General Internal Medicine 07/06/20 12/24/20 Michael Gillette MD [address] [place] [address] 34923 PCP - General Internal Medicine 12/25/20 06/28/21 [facility], Pcp [address] [place], [place] [phone] PCP - General Internal Medicine 06/29/21 11/14/21 Napoleon Linda [address] [place] [address] 95[address] PCP - General Internal Medicine 11/15/21 04/20/22 [facility], Pcp [address] [place] [address] 29[address] PCP - General Internal Medicine 04/21/22 documented as of this encounter
--- OUTSIDE RECORDS SUMMARY | 2024-10-18 12:24 | XMS_ITS | Encounter Summary ---
Author Organization [facility] Address [address] [place] [address] Care Team Providers Care Design Lead Name Role Phone Robinson Howe MD Primary Care Provider [phone] Jesus Monterroso MD Primary Care Provider Abram Flores MD Primary Care Provider Michael Hinojosa MD Primary Care Provider Driss nguyen [facility], Pcp Primary Care Provider Napoleon Mejia Primary Care Provider [facility], Pcp Primary Care Provider Maria T grace Encounter Details Date Type Department Care Team Description 11/07/2016 Business Doc Medical Records [address] [place] [address] 20[address] Abstract, Provider Social History Tobacco Use Types [...] on filedocumented in this encounter Care Teams Design Lead Relationship Specialty Start Date End Date Robinson Howe MD [address] [place] [address] PCP - General Internal Medicine 11/03/14 04/13/20 Jesus Monterroso MD [address] [place] [address] 6[address]11 PCP - General Internal Medicine 04/14/20 07/05/20 Abram Gardner MD [address] [place] [address] 76018 PCP - General Internal Medicine 07/06/20 12/24/20 Michael Gillette MD [address] [place] [address] 37526 PCP - General Internal Medicine 12/25/20 06/28/21 [facility], Pcp [address] [place], [place] [phone] PCP - General Internal Medicine 06/29/21 11/14/21 Napoleon Linda [address] [place] [address]187 PCP - General Internal Medicine 11/15/21 04/20/22 [facility], Pcp [address] [place] [address] 53[address] PCP - General Internal Medicine 04/21/22 documented as of this encounter
--- OUTSIDE RECORDS SUMMARY | 2024-10-18 12:24 | XMS_ITS | Encounter Summary ---
Author Organization [facility] Address [address] [place] [address] Care Team Providers Care Ingredient Specialist Name Role Phone Robinson Howe MD Primary Care Provider + [phone] Jesus Monterroso MD Primary Care Provider Abram Flores MD Primary Care Provider Michael Hinojosa MD Primary Care Provider Driss nguyen [facility], Pcp Primary Care Provider Napoleon Mejia Primary Care Provider [phone] [facility], Pcp Primary Care Provider Maria T grace Encounter Details Date Type Department Care Team Description 03/02/2017 Business Doc Medical Records [address] [place] [address] 70283 Abstract, Provider Social History Tobacco Use Types [...] on filedocumented in this encounter Care Teams Ingredient Specialist Relationship Specialty Start Date End Date Robinson Howe MD [address] [place] [address] PCP - General Internal Medicine 11/03/14 04/13/20 Jesus Monterroso MD [address] [place] [address] 08681 PCP - General Internal Medicine 04/14/20 07/05/20 Abram Gardner MD [address] [place] [address] 42095 PCP - General Internal Medicine 07/06/20 12/24/20 Michael Gillette MD [address] [place] [address] 65698 PCP - General Internal Medicine 12/25/20 06/28/21 [facility], Pcp [address] [place], [place] [phone] PCP - General Internal Medicine 06/29/21 11/14/21 Napoleon Linda [address] [place] [address] 14117 PCP - General Internal Medicine 11/15/21 04/20/22 [facility], Pcp [address] [place] [address] 17035 PCP - General Internal Medicine 04/21/22 documented as of this encounter
--- OUTSIDE RECORDS SUMMARY | 2024-10-18 12:24 | XMS_ITS | Encounter Summary ---
Author Organization [facility] Address [address] [place] [address] Care Team Providers Care Adult Manager Name Role Phone Robinson Howe MD Primary Care Provider + [phone] Jesus Monterroso MD Primary Care Provider Abram Flores MD Primary Care Provider Michael Hinojosa MD Primary Care Provider Driss nguyen [facility], Pcp Primary Care Provider Napoleon Mejia Primary Care Provider [phone] [facility], Pcp Primary Care Provider Maria T grace Encounter Details Date Type Department Care Team Description 08/07/2016 Release of Information Medical Records [address] [place] [address] 41914 Abstract, Provider Social History Tobacco Use Types [...] on filedocumented in this encounter Care Teams Adult Manager Relationship Specialty Start Date End Date Robinson Howe MD [address] [place] [address]20 PCP - General Internal Medicine 11/03/14 04/13/20 Jesus Monterroso MD [address] [place] [address] 47185 PCP - General Internal Medicine 04/14/20 07/05/20 Abram Gardner MD [address] [place] [address] 89333 PCP - General Internal Medicine 07/06/20 12/24/20 Michael Gillette MD [address] [place] [address] 70153 PCP - General Internal Medicine 12/25/20 06/28/21 [facility], Pcp [address] [place], [place] [phone] PCP - General Internal Medicine 06/29/21 11/14/21 Napoleon Linda [address] [place] [address] PCP - General Internal Medicine 11/15/21 04/20/22 [facility], Pcp [address] [place] [address] 98880 PCP - General Internal Medicine 04/21/22 documented as of this encounter
--- OUTSIDE RECORDS SUMMARY | 2024-10-18 12:24 | XMS_ITS | Encounter Summary ---
Author Organization [facility] Address [address] [place] [address] Care Team Providers Care Stretch Press Operator Name Role Phone Robinson Howe MD Primary Care Provider + [phone] Jesus Monterroso MD Primary Care Provider Abram Flores MD Primary Care Provider Michael Hinojosa MD Primary Care Provider Driss nguyen [facility], Pcp Primary Care Provider Napoleon Mejia Primary Care Provider [phone] [facility]cp Primary Care Provider Maria T grace Encounter Details Date Type Department Care Team Description 08/15/2018 Interactive Video Technician Report Medical Records [address] [place] [address] Becky Dolan MD Social History Tobacco Use [...] on filedocumented in this encounter Care Teams Stretch Press Operator Relationship Specialty Start Date End Date Robinson Howe MD [address] [place] [address] PCP - General Internal Medicine 11/03/14 04/13/20 Jesus Monterroso MD [address] [place] [address] 01543 PCP - General Internal Medicine 04/14/20 07/05/20 Abram Gardner MD [address] [place] [address] 00755 PCP - General Internal Medicine 07/06/20 12/24/20 Michael Gillette MD [address] [place] [address] 35210 PCP - General Internal Medicine 12/25/20 06/28/21 [facility]cp [address] [place], [place] [phone] PCP - General Internal Medicine 06/29/21 11/14/21 Napoleon Linda [address] [place] [address] 12592 PCP - General Internal Medicine 11/15/21 04/20/22 [facility]cp [address] [place] [address] 61648 PCP - General Internal Medicine 04/21/22 documented as of this encounter
--- OUTSIDE RECORDS SUMMARY | 2024-10-18 12:24 | XMS_ITS | Encounter Summary ---
Author Organization [facility] Address [address] [place] [address] Care Team Providers Care Property Field Inspector Name Role Phone Louisa Machuca MD Primary Care Provider Unavailable Ruddy Cruz MD Primary Care Provider Unavail able Robinson Howe MD Primary Care Provider + [phone] Jesus Monterroso MD Primary Care Provider Abram Flores MD Primary Care Provider Unavailab Michael Duvall MD Primary Care Provider Driss nguyen [facility], Pcp Primary Care Provider UnavailNapoleon White Primary Care Provider [facility], Pcp Primary Care Provider Maria T grace Encounter Details Date Type Department Care Team Description 11/20/2013 Business Doc Medical Records [address] [place] [address] Abstract, Provider Social History Tobacco Use Types [...] filedocumented in this encounter Care Teams Property Field Inspector Relationship Specialty Start Date End Date Louisa Machuca MD PCP - General Internal Medicine 07/17/13 Ruddy Cruz MD PCP - General Internal Medicine 12/19/13 11/02/14 Robinson Howe MD [address] [place] [address] PCP - General Internal Medicine 11/03/14 04/13/20 Jesus Monterroso MD [address] [place] [address] PCP - General Internal Medicine 04/14/20 07/05/20 Abram Gardner MD [address] [place] [address] PCP - General Internal Medicine 07/06/20 12/24/20 Michael Gillette MD [address] [place] [address] PCP - General Internal Medicine 12/25/20 06/28/21 [facility], Pcp [address] [place] [address] PCP - General Internal Medicine 06/29/21 11/14/21 Napoleon Linda [address] [place] [address] PCP - General Internal Medicine 11/15/21 04/20/22 [facility], Pcp [address] [place] [address] PCP - General Internal Medicine 04/21/22 documented as of this encounter
--- OUTSIDE RECORDS SUMMARY | 2024-10-18 12:24 | XMS_ITS | Encounter Summary ---
Author Organization [facility] Address [address] [place] [address] Care Team Providers Care Mutuel Machine Operator Name Role Phone Ruddy Cruz MD Primary Care Provider Unavail able Robinson Howe MD Primary Care Provider + [phone] Jesus Monterroso MD Primary Care Provider Abram Flores MD Primary Care Provider Unavailab Michael Duvall MD Primary Care Provider Mariaelenavagabriel nguyen [facility], Pcp Primary Care Provider UnavailNapoleon White Primary Care Provider [phone] [facility], Pcp Primary Care Provider Unavailabl e Encounter Details Date Type Department Care Team Description 08/25/2014 Business Doc Medical Records [address] [place] [address] 8[address]75 Abstract, Provider Social History Tobacco Use Types [...] on filedocumented in this encounter Care Teams Mutuel Machine Operator Relationship Specialty Start Date End Date Ruddy Cruz MD PCP - General Internal Medicine 12/19/13 11/02/14 Robinson Howe MD [address] [place] [address] [phone] PCP - General Internal Medicine 11/03/14 04/13/20 Jesus Monterroso MD [address] [place] [address] PCP - General Internal Medicine 04/14/20 07/05/20 Abram Gardner MD [address] [place] [address] 64201 PCP - General Internal Medicine 07/06/20 12/24/20 Michael Gillette MD [address] [place] [address] PCP - General Internal Medicine 12/25/20 06/28/21 [facility], Pcp [address] [place] [address] PCP - General Internal Medicine 06/29/21 11/14/21 Napoleon Linda [address] [place], [place] [phone] PCP - General Internal Medicine 11/15/21 04/20/22 [facility], Pcp [address] [place] [address] PCP - General Internal Medicine 04/21/22 documented as of this encounter
--- OUTSIDE RECORDS SUMMARY | 2024-10-18 12:24 | XMS_ITS | Encounter Summary ---
Author Organization [facility] Address [address] [place] [address] Care Team Providers Care Medical Sociologist Name Role Phone Louisa Machuca MD Primary Care Provider Unavailable Ruddy Cruz MD Primary Care Provider Unavail able Robinson Howe MD Primary Care Provider [phone] Jesus Monterroso MD Primary Care Provider Abram Flores MD Primary Care Provider Unavailab Michael Duvall MD Primary Care Provider Driss nguyen [facility], Pcp Primary Care Provider UnavailNapoleon White Primary Care Provider [phone] [facility], Pcp Primary Care Provider Maria T grace Encounter Details Date Type Department Care Team Description 12/18/2013 Business Doc Medical Records [address] [place] [id number] Abstract, Provider Social History Tobacco Use Types [...] filedocumented in this encounter Care Teams Medical Sociologist Relationship Specialty Start Date End Date Louisa Machuca MD PCP - General Internal Medicine 07/17/13 Ruddy Cruz MD PCP - General Internal Medicine 12/19/13 11/02/14 Robinson Howe MD [address] [place] [address] PCP - General Internal Medicine 11/03/14 04/13/20 Jesus Monterroso MD [address] [place] [address] PCP - General Internal Medicine 04/14/20 07/05/20 Abram Gardner MD [address] [place] [address] PCP - General Internal Medicine 07/06/20 12/24/20 Michael Gillette MD [address] [place] [address] PCP - General Internal Medicine 12/25/20 06/28/21 [facility], Pcp [address] [place] [address] PCP - General Internal Medicine 06/29/21 11/14/21 Napoleon Linda [address] [place] [address] PCP - General Internal Medicine 11/15/21 04/20/22 [facility], Pcp [address] [place] [address] PCP - General Internal Medicine 04/21/22 documented as of this encounter
--- OUTSIDE RECORDS SUMMARY | 2024-10-18 12:24 | XMS_ITS | Encounter Summary ---
Author Organization [facility] Address [address] [place] [address] Care Team Providers Care Hydrometer Tester Name Role Phone Jesus Monterroso MD Primary Care Provider Abram Flores MD Primary Care Provider Unavailab Michael Duvall MD Primary Care Provider Driss nguyen [facility], Pcp Primary Care Provider Napoleon Mejia Primary Care Provider [phone] [facility] Primary Care Provider Unavailabl e Reason for Visit * Reason Comments E-prescribe Rx Request Encounter Details Date Type Department Care Team Description 06/29/2020 Refill Allergy [address] [id number] Cait Dumas MD E-prescribe Rx Request Social [...] on filedocumented in this encounter Care Teams Hydrometer Tester Relationship Specialty Start Date End Date Jesus Monterroso MD PCP - General Internal Medicine 04/14/20 07/05/20 Abram Gardner MD PCP - General Internal Medicine 07/06/20 12/24/20 Michael Gillette MD PCP - General Internal Medicine 12/25/20 06/28/21 [facility], Pcp PCP - General Internal Medicine 06/29/21 11/14/21 Napoleon Linda [address] [place] [address] PCP - General Internal Medicine 11/15/21 04/20/22 [facility]cp PCP - General Internal Medicine 04/21/22 documented as of this encounter
--- OUTSIDE RECORDS SUMMARY | 2024-10-18 12:24 | XMS_ITS | Encounter Summary ---
Author Organization [facility] Address [address] [place] [address] Care Team Providers Care Project Manager Entertainment And Media Name Role Phone Robinson Howe MD Primary Care Provider [phone] Jesus Monterroso MD Primary Care Provider Abram Flores MD Primary Care Provider Unavailab Michael Duvall MD Primary Care Provider Unavai patrick [facility], Pcp Primary Care Provider UnavailNapoleon White Primary Care Provider [phone] [facility], Pcp Primary Care Provider Unavailguido e Encounter Details Date Type Department Care Team Description 01/18/2018 Orders Only Medical Records [address] [place] [address] Terrence Corral MD [address] [place] [id number] Social History Tobacco Use Types Packs/Day [...] Results * OUTSIDE PLAIN FILM (01/17/2018) Terrence Croral MD RADIOLOGY documented in this encounter Visit Diagnoses Not on filedocumented in this encounter Care Teams Project Manager Entertainment And Media Relationship Specialty Start Date End Date Robinson Howe MD [address] [place] [address] PCP - General Internal Medicine 11/03/14 04/13/20 Jesus Monterroso MD [address] [place] [address] PCP - General Internal Medicine 04/14/20 07/05/20 Abram Gardner MD [address] [place] [address] PCP - General Internal Medicine 07/06/20 12/24/20 Michael Gillette MD [address] [place] [address] PCP - General Internal Medicine 12/25/20 06/28/21 [facility], Pcp [address] [place] [address] PCP - General Internal Medicine 06/29/21 11/14/21 Napoleon Linda [address] [place] [address] PCP - General Internal Medicine 11/15/21 04/20/22 [facility], Pcp [address] [place], [place] [id number] PCP - General Internal Medicine 04/21/22 documented as of this encounter
--- OUTSIDE RECORDS SUMMARY | 2024-10-18 12:24 | XMS_ITS | Encounter Summary ---
Author Organization [facility] Address [address] [place] [address] Care Team Providers Care Sales And Events Coordinator Name Role Phone Robinson Howe MD Primary Care Provider [phone] Jesus Monterroso MD Primary Care Provider Abram Flores MD Primary Care Provider Unavailab Michael Duvall MD Primary Care Provider Unavagabriel nguyen [facility], Pcp Primary Care Provider UnavailNapoleon White Primary Care Provider [phone] [facility], Pcp Primary Care Provider Unavailguido e Encounter Details Date Type Department Care Team Description 06/27/2016 Orders Only Medical Records [address] [place] [id number] Alexandria Todd MD [address] [place] [address] [facility] [place] [id number] Social History Tobacco Use Types Packs/Day Years [...] in this encounter Care Teams Sales And Events Coordinator Relationship Specialty Start Date End Date Robinson Howe MD [address] [place] [address] PCP - General Internal Medicine 11/03/14 04/13/20 Jesus Monterroso MD [address] [place] [address] PCP - General Internal Medicine 04/14/20 07/05/20 Abram Gardner MD [address] [place] [address] PCP - General Internal Medicine 07/06/20 12/24/20 Michael Gillette MD [address] [place] [address] PCP - General Internal Medicine 12/25/20 06/28/21 [facility], Pcp [address] [place] [address] PCP - General Internal Medicine 06/29/21 11/14/21 Napoleon Linda [address] [place] [address] PCP - General Internal Medicine 11/15/21 04/20/22 [facility], Pcp [address] [place] [address] PCP - General Internal Medicine 04/21/22 documented as of this encounter
== END 2024-10-18 10:07 | disposition home or self-care (01) ==
LOC: HO.LAB 10:06
PROVIDERS: PCP Internal Medicine; Visit Provider Urology
DX: N32.81 Overactive bladder (principal); N39.0 Urinary tract infection, site not specified; A49.9 Bacterial infection, unspecified
CPT/HCPCS: 51798; 81003; 87086; 99212

== ENCOUNTER 2024-10-18 10:06 | Outpatient (AMB) | payer OTHER, SELFPAY ==
--- NOTE | 2024-10-18 10:18 | A.OFFVIS_ITS ---
Intake Visit Reasons: 3m follow up Intake Note: Patient presents today for: 3mo follow up Urology Medications: none Blood Thinner: aspirin Concrete Vault Maker Required: Yes Concrete Vault Maker Name: Grayson Cespedes Accompanied by: Self / Same As Patient Allergies regadenoson (From [facility]) Adverse Reaction (Intermediate, Verified 10/18/24 10:20) Chest Pain HPI Comments Details: 10/18/24--here for follow-up status post bladder Botox injection 07/08/2024 Doing well minimal leakage with coughing decreased urgency plan repeat Botox in 10-12 weeks 05/16/24--FU to discuss botox. I discussed the patient's current improvement in urinary symptoms following Botox treatment, noting her reduced urgency and infrequent incontinence episodes. We reviewed the initial Botox injection procedure and its benefits in reducing bladder spasms, which has led to symptomatic relief. Urinary Symptoms Review - Reduced urgency and rare urinary incontinence episodes - Occasional leakage with activities such as laughing - Significant improvement post-Botox treatment 01/10/24--Joanna is a 73-year-old female who is followed for overactive bladder symptoms and is status post Botox 100 units, performed in the ambulatory or setting 09/19/2023. She states she is doing much better since the Botox injection she has less urgency and is able to get to the bathroom without leaking on herself with occasional leakage associated with coughing or sneezing. She does wear a pad in case she sneezes. Otherwise she is very happy with the bladder control at this time. Plan continue Botox every 6 months. Repeat Botox 100 units in the office the end of February or March. Will start Macrobid and Pyridium 2 days prior to procedure. 08/11/23--here for urodynamics. CMG parameters detailed below. Interpretation: During the filling phase there was normal sensation, sensory urgency was noted, strong urge was noted significant detrusor contraction associated with leakage of entire volume filled; the patient was refilled and stress test was negative. There was a cough induced detrusor contraction noted. Findings consistent with decreased compliance and detrusor overactivity. EMG- Appropriate changes in the waveforms were noted through out the study. Discussed role of PO anticholinergics on bladder spasms, pt stated she stopped bladder medication due to constipation. Discussed alternative therapy options to include Botox bladder injection. Discussed risks and benefits to include but not limited to UTI, hematuria, urinary retention, need to repeat botox to maintain efficacy. 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 She was evaluated last by nurse practitioner Nicolette Joseph. She planes of urinary symptoms leaking associated with urgency and coughing. 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 She states she completed pelvic floor physical therapy and has been doing exercises with only mild improvement in her urinary symptoms. I have discussed that common causes for urinary incontinence include bladder spasms and pelvic floor weakness. The patient failed Myrbetriq and VESIcare. Discussed further evaluation if urodynamics. 12/29/22--Joanna is a pleasant 72-year-old [place] Citizen speaking female patient of Dr. Mitchell. She has a past medical history of neuropathy, allergies, asthma, an d obstructive sleep apnea. She has a past medical history of chronic allergic rhinitis, bronchitis, asthma, and obstructive sleep apnea. She is being follow- up on today via telehealth for her lower urinary tract symptoms (urinary frequency, urinary urgency and episodes of incontinence if not near a bathroom). Telehealth appointment was made today due to clarification of medications. During last office visit patient had reported some improvement with Myrbetriq 25 mg daily however felt urinary symptoms could be better at which time recommendations were made for additional 5 mg of VESIcare daily. However, patient discusses today feeling Myrbetriq was not helpful and is feeling VESIcare is causing her constipation. Discussed at length potential side effects of overactive bladder medications. Discussed and stressed pelvic floor therapy. Previous workup has included a retroperitoneal ultrasound noting unremarkable imaging of kidneys and bladder. Discussed bladder triggers/irritants. She o Beezik offers no issues or concerns at this time. [facility] Medical History Elevated cholesterol HTN (hypertension) Type 2 diabetes mellitus Cognitive dysfunction GERD (gastroesophageal reflux disease) Osteopenia Hypothyroid Chronic cough History of neuropathy Chronic ankle pain Non-rheumatic aortic stenosis Pleuritic chest pain Chronic allergic rhinitis Hypothyroidism Asthma-COPD overlap syndrome ALISA (obstructive sleep apnea) Asthma Surgical History History of esophagogastroduodenoscopy (EGD) History of colonoscopy with polypectomy (04/16/24) Hx of cystoscopy History of colonoscopy (~03/12/20) History of surgery on lower extremity History of back surgery History of thyroid surgery Family History Father Diabetes HTN (hypertension) Heart disease Mother Diabetes HTN (hypertension) Other Asthma Social History Household Members: None Housing: Apartment Alcohol intake: former Patient Tobacco Use Status: Former Tobacco user Tobacco use type: Cigarette Years Smoked: 10 years e-Cigarette/Vaping Use: Never Used Second Hand Smoke Exposure: Yes service: No Current occupational status: disabled Current occupational exposures/hazards: No Cognitive needs: Yes (cane) Hearing needs: No Vision needs: Yes Female Reproductive History Menstrual Age of Menarche: 12 Office Procedures Post Void Residual Post Residual Void Post Void Residual (PVR): 31 [id number] Void Residual by ultrasound Results AMB Urinalysis, Automated UA Leukoctes 125 Damien/uL Last Edit by CANDELARIO Drew on 10/18/24 10:39 UA Nitrite Negative Last Edit by CANDELARIO Drew on 10/18/24 10:39 UA Urobilinogen 0.2 mg/dL Last Edit by CANDELARIO Drew on 10/18/24 10:3 9 UA Protein 15 mg/dL Last Edit by CANDELARIO Drew on 10/18/24 10:39 UA pH 5.5 Last Edit by CANDELARIO Drew on 10/18/24 10:39 UA Blood 0 Lawrence/uL Last Edit by CANDELARIO Drew on 10/18/24 10:39 UA Specific [place] 1.020 Last Edit by CANDELARIO Drew on 10/18/24 10: 39 UA Ketone Negative Last Edit by CANDELARIO Drew on 10/18/24 10:39 UA Bilirubin 0 mg/dL Last Edit by CANDELARIO Drew on 10/18/24 10:39 UA Glucose 0 mg/dL Last Edit by CANDELARIO Drew on 10/18/24 10:39 Results Reviewed Results Reviewed: Laboratory Last Values Urine pH (Auto) 5.5 10/18/24 10:38 Specific [place] (Auto) 1.020 10/18/24 10:38 Urine Protein (Auto) 15 mg/dL 10/18/24 10:38 Glucose (UA)(Auto) 0 mg/dL 10/18/24 10:38 Urine Ketones (Auto) Negative 10/18/24 10:38 Urine Blood (Auto) 0 Lawrence/uL 10/18/24 10:38 Urine Nitrite (Auto) Negative 10/18/24 10:38 Urine Bilirubin (Auto) 0 mg/dL 10/18/24 10:38 Urine Urobilinogen (Auto) 0.2 mg/dL 10/18/24 10:38 Leukocyte Esterase (Auto) 125 Damien/uL 10/18/24 10:38 Assessment & Plan Assessment & Plan Orders: Orders 2 AMB Post Void Residual by ultrasound Today R32 - Unspecified urinary incontinence Urine Culture Today A49.9 - Bacterial infection, unspecified, N39.0 - Urinary tract infection, site not specified AMB Urinalysis Automated Today Z13.9 - Encounter for screening, unspecified Coding CPT Codes Post Residual Void - PVR CPT Code: [id number] Void Residual by ultrasound ([id number])
--- OUTSIDE RECORDS SUMMARY | 2024-10-18 10:51 | XMS_ITS | Encounter Summary ---
Author Organization [employer] [facility] Address [address] [place] [address] [address] [address] Care Team Providers Care Floor Covering Contractor Name Role Phone Unavailable Primary Care Provider Unavailabl e Encounter Details Date Type Department Care Team (Latest Contact Info) Description 10/03/2018 Abstract [facility] CONVERSIONS Dental, Provider, DDS Social History Tobacco [...]
--- OUTSIDE RECORDS SUMMARY | 2024-10-18 10:51 | XMS_ITS | Clinical Summary ---
Author Organization [employer] Address [address] [place] [address] [address] [address] Care Team Providers Care Frame Builder Name Role Phone Unavailable Primary Care Provider [...] mg by mouth at bedtime. 2 Active chlorhexidine (Peridex) 0.12 % solution Use 15ml to rinse your mouth twice daily. Spit, do not swallow. 473 mL 5 Active Active Problems Problem Noted Date Diagnosed Date Dental calculus 09/12/2023 Localized gingival recession 09/12/2023 Missing teeth, acquired 09/12/2023 Periodontal disease 01/28/2022 Encounters Date Type Department Care Team Description 09/13/2024 3:00 PM EDT Office Visit [facility] [address] [place] [address] Rox Bui Gingival bleeding (Primary Dx); Dental plaque; Missing teeth, acquired; Dental calculus from Last 3 Months Immunizations Immunization Administration Dates Next Due INFLUENZA [...] Sign Reading Time Taken Comments Blood Pressure 122/64 09/13/2024 3:04 PM EDT Pulse 62 09/13/2024 3:04 PM EDT Temperature - - Respiratory Rate - - Oxygen Saturation - - Inhaled Oxygen Concentration - - Weight - - Height - - Body Mass Index - - Plan of Treatment Health Maintenance Due Date Last Done Comments Depression Screening 1948 Lipid Panel 1948 SDOH Screening 1948 Alcohol/Substance Use Screening 1960 Hepatitis C Screening 1966 Zoster Vaccines (1 of 2) 1998 DTaP/Tdap/Td Vaccines (1 - Tdap) 04/09/2022 04/08/2022 RSV Patients and Patients Aged 60 years or older (1 - 1-dose 75+ series) 2023 COVID-19 Vaccine ( - season) 2023 02/03/2023, 03/03/2022, 02/24/2021, Additional history exists Influenza Vaccine (#1) 2024 , 01/24/2023, 11/06/2020, Additional history exists Dental X-Ray: Full Mouth 12/25/2024 12/24/2021 Dental Oral Exam 03/17/2025 09/13/2024, 09/12/2023 Dental Prophylaxis 03/17/2025 09/13/2024, 0 03/15/2024, 09/12/2023 Tobacco Screening 09/13/2025 09/13/2024 Dental X-Ray: Bitewings 09/14/2025 09/13/2024, 09/11 Pneumococcal Vaccine: 50+ Years Completed 06/30/2021, 01/19/2015, 05/23/2013, Additional history exists HIB Vaccines Aged Out [...] Procedure Name Priority Date/Time Associated Diagnosis Comments CASE PRESENTATION, DETAILED AND EXTENSIVE TREATMENT PLANNING Routine 09/13/2024 3:00 PM EDT ORAL HYGIENE INSTRUCTIONS Routine 09/13/2024 3:00 PM EDT PROPHYLAXIS - ADULT Routine 09/13/2024 3 :00 PM EDT INTRAORAL - PERIAPICAL EACH ADDITIONAL RADIOGRAPHIC IMAGE Routine 09/13/2024 3:00 PM EDT INTRAORAL - PERIAPICAL FIRST RADIOGRAPHIC IMAGE Routine 09/13/2024 3:00 PM EDT BITEWINGS - 4 RADIOGRAPHIC IMAGES Routine 09/13/2024 3:00 PM EDT PERIODIC ORAL EVALUATION - ESTABLISHED PATIENT Routine 09/13/2024 3:00 PM EDT Gingival bleeding Dental plaque Missing teeth, acquired Dental calculus from Last 3 Months Insurance DENTAL - [facility] [employer] (HMO D-SNP) DENTAL [facility]
--- OUTSIDE RECORDS SUMMARY | 2024-10-18 10:51 | XMS_ITS | Encounter Summary ---
Author Organization [facility] Address [address] [place] [address] [address] [place] [address] Care Team Providers Care Retail Pricing Coordinator Name Role Phone Unavailable Primary Care Provider Unavailabl e Encounter Details Date Type Department Care Team (Latest Contact Info) Description 12/24/2021 Abstract [facility] CONVERSIONS Dental, Provider, DDS Social History [...]
--- OUTSIDE RECORDS SUMMARY | 2024-10-18 10:51 | XMS_ITS | Encounter Summary ---
Author Organization [facility] Address [address] [place] [address] [address] [address] Care Team Providers Care Director Of Casino Name Role Phone Unavailable Primary Care Provider Unavailabl e Encounter Details Date Type Department Care Team (Latest Contact Info) Description 12/24/2021 Abstract [facility] CONVERSIONS Dental, Provider, DDS Social [...]
--- OUTSIDE RECORDS SUMMARY | 2024-10-18 10:51 | XMS_ITS | Encounter Summary ---
Author Organization [employer] [facility] Address [address] [place] [address] [address] [place] [address] Care Team Providers Care Dynamometer Repairer Name Role Phone Unavailable Primary Care Provider Unavailabl e Reason for Visit * Reason Onset Date Comments Durable Medical Equipment 01/18/2023 Encounter Details Date Type Department Care Team ([facility] st Contact Info) Description 01/18/2023 Telephone [facility] [address] [place] [address] Jesus Wiseman MD [address] [place] [address] Durable Medical Equipment Social History Tobacco Use [...] bed pads 2 per day, and she [id number] refills for all the supply's. Any questions please contact Susana at [phone] ext [phone] FYI after further inspection this pt does not seem active. documented in this encounter Plan of Treatment Not on file documented as of this encounter Visit Diagnoses Not on filedocumented in this encounter
--- OUTSIDE RECORDS SUMMARY | 2024-10-18 10:51 | XMS_ITS | Encounter Summary ---
Author Organization [employer] Address [address] [place] [address] [address] [address] Care Team Providers Care Graduate Teacher Education Name Role Phone Unavailable Primary Care Provider Unavailabl e Encounter Details Date Type Department Care Team ([facility] st Contact Info) Description 01/26/2022 Abstract [facility] [address] [place] [address] Dental, Provider, DDS Social History Tobacco Use [...]
--- OUTSIDE RECORDS SUMMARY | 2024-10-18 10:51 | XMS_ITS | Encounter Summary ---
Author Organization [employer] [facility] Address [address] [place] [address] [address] [address] Care Team Providers Care Clinical Informatics Spec Name Role Phone Unavailable Primary Care Provider Unavailabl e Encounter Details Date Type Department Care Team (Latest Contact Info) Description 04/05/2018 Abstract [facility] CONVERSIONS Dental, Provider, DDS Social [...]
== END 2024-10-18 11:03 | disposition home or self-care (01) ==
LOC: HO.HUSH 10:07
PROVIDERS: PCP Internal Medicine; Visit Provider Urology
DX: Z13.9 Encounter for screening, unspecified (principal)

== ENCOUNTER 2024-10-31 11:07 | Outpatient (RCR) | payer OTHER, SELFPAY ==
[2024-10-31 11:05] VITALS: BP 123/60; PULSE 65
--- NOTE | 2024-10-31 11:59 | MHC.PT.EP ---
[facility] [place] Office [place] [facility] [place] Office [address] Aide Grajeda [address] [phone] F: [phone] F: [phone] F: [phone] F: [phone] Physical Therapy Plan of Care Date of Evaluation: Date of Surgery: Diagnosis: vertigo dizziness and giddiness Assessment: 74 y/o female referred to PT with dizziness and giddiness. She reports room spinning dizziness that lasts about one minute but she will feel bad for several days, then it will be normal for a month of so. Worse with rolling in bed, getting in/OOB and turning. Examination shows normal smooth pursuits, normal saccades, negative B VBI, balance appears WFL while walking in/out of gym conversing, and negative for BPPV all 6 canals. At this time, we will keep chart open for 45 days in case of recurrence of room-spinning dizziness and will reassess then. Frequency and Duration: The patient will be seen 2x/week for 4 weeks Short Term Goals: we will keep chart open for 45 days in case of recurrence of room-spinning dizziness and will reassess then. Group Home Goals: Treatment Plan: Modalities to reduce pain, spasms and effusion. Manual therapy to restore motion and function. Therapeutic exercise to improve strength and flexibility. Neuromuscular re-education for posture and balance. Therapeutic activities to return to functional activities of daily living. Electronically signed by: Carol Davila PT Please sign and return to therapist. Thank you for your referral.
--- NOTE | 2024-12-09 14:41 | MHC.PT.DC ---
[facility] [place] [facility] [place] [facility] [place] [facility] [address] A[address] [facility] [phone] F: [phone] F: [phone] F: [phone] F: [phone] Physical Therapy Discharge Report Diagnosis: vertigo dizziness and giddiness Date of Surgery: Date of Evaluation: 10/31/24 Date of Discharge: 12/09/24 Treatments to Date: 1 Cancellations to Date: 0 No Shows to Date: 0 Discharge Status: Discharge Summary: Kept chart open for 45 days in case of recurrence of room-spinning dizziness as she was negative during evaluation. At this time, we will close chart Electronically signed by: Carol Davila PT Please sign and return to therapist. Thank you for your referral.
== END 2024-12-09 14:41 | disposition home or self-care (01) ==
LOC: HO.PT 11:07
PROVIDERS: PCP Internal Medicine; Visit Provider Internal Medicine
DX: H81.13 Benign paroxysmal vertigo, bilateral (principal)
CPT/HCPCS: 97161

== ENCOUNTER 2024-12-06 10:45 | Outpatient (REF) | payer OTHER, SELFPAY ==
--- NOTE | ~2024-12-06 | XR_ITS ---
EXAMINATION: XR RIBS, RIGHT CLINICAL INFORMATION: R07.81 - Pleurodynia COMPARISON: Chest radiograph 09/14/2023. TECHNIQUE: PA view of the chest, and 3 views of the right ribs were obtained. FINDINGS: Mildly elevated right hemidiaphragm, unchanged. Lungs are clear. No consolidation, pneumothorax, or pleural effusion. The cardiomediastinal silhouette and pulmonary vasculature are normal. Aortic mural calcifications. Ribs appear intact. No fractures are identified. There are degenerative changes in the shoulder joints and throughout the spine. There are surgical clips in the inferior neck. XR/XR ribs RT min 3V w CXR1V IMPRESSION: No active pulmonary disease. No definite rib fracture evident. Electronically signed by: Raymond Patterson MD 12/06/2024 12:37 PM EDT
[2024-12-06 12:25] LABS: Appearance Urine Clear; Glucose Urine UA Negative (Negative); PH 5.5 (5.0-9.0); Specific Gravity - Urine 1.020 (1.005-1.025); UMIC TRIGGER UA YES
[2024-12-06 12:51] LABS: Hematocrit 39.5 % (37.0-47.0); Hemoglobin 12.3 g/dl (12.0-16.0); Mean Corpuscular HGB Conc 31.1 g/dl (31.0-35.0); Mean Corpuscular Hemoglobin 27.2 pg (27.0-33.0); Mean Corpuscular Volume 87.2 fL (80.0-98.0); NRBC Abs Auto 0.000 X10*3/uL (0.0-0.012); NRBC Pct Auto 0.0 /100WBC (0.0-0.2); Platelet Count 294 X10*3/uL (160-400); Red Blood Count 4.53 X10*6/uL (4.20-5.50); White Blood Count 9.1 X10*3/uL (4.8-10.8)
[2024-12-06 13:56] LABS: Alanine Aminotransferase 15 U/L (0-31); Albumin Level 4.3 g/dL (3.5-5.0); Alkaline Phosphatase 83 U/L (39-117); Anion Gap 12 (12-20); Aspartate Amino Transferase 35 U/L (5-31); Blood Urea Nitrogen 19 mg/dL (9-16); Calcium 9.3 mg/dL (8.4-10.2); Carbon Dioxide 27 mmol/L (22-29); Chloride 108 mmol/L (96-108); Cholesterol 206 mg/dL (<200); Estimated Glomerular Filt Rate > 60; HDL Cholesterol 44 mg/dL (>40); Lipase 24 U/L (8-78); Potassium 4.2 mmol/L (3.3-5.1); Sodium 143 mmol/L (135-145); Total Protein 7.5 g/dL (6.5-8.0); Triglycerides 220 mg/dL (<150)
--- OUTSIDE RECORDS SUMMARY | 2024-12-06 14:08 | XMS_ITS | Data Portability ---
Author Organization [employer] [facility], [facility] Address [address] [place] [address] Care Team Providers Care Supervisor Joiners Name Role Phone HIM CCA OTHER Assessment Encounter Date Assessment Date Assessment LastModified by Organization Details LastModified Time 12/04/2024 12/04/2024 I have reviewed and agree with the assessment and plan as documented by the supervisor of instruction. I provided real time medical direction for this encounter and was immediately available to provide additional phone based assistance as needed. History as noted by supervisor of instruction. Pt with history of Diabetes Mellitus Type 2, Hypertension, Osteoarthritis , Chronic Obstructive Pulmonary Disease (COPD), Hyperthyroidis m, Stroke. Pt reports that yesterday, she was seated on her couch and doing her pelvic floor exercises with a pillow between her legs and doing leg raises, when she felt a sudden pain in her R lower/lateral abdominal wall. She reports the pain has persisted and worsens with any bending or twisting of her torso. She also notes the pain increases with deep breathing but she denies any chest pain or SOB. There was no fall or direct injury to the pt's abdomen. No LE numbness, weakness or paresthesia. No abdominal pain. Pt reports that she took tylenol last night with significant improvement in the pain and took flexeril this AM with only moderate relief. On exam, vitals are all normal. mild tenderness noted of R lateral/lower abdominal wall just proximal to R anterior superior iliac spine. No swelling or bruising. No rib tenderness. Impression: Pt with what appears to be a muscle strain of R lateral/lower abdominal wall that occurred while doing seated exercises yesterday. There is no e/o bony tenderness on exam to suggest fracture. Pt notes the pain mostly with movement of her torso. When at rest, she reports the pain is minimal. Tylenol gave her significant relief last night. Pt has no known history of CKD. She is medicated with a dose of toradol 15mg IM. She is instructed to use the tylenol tid if needed for pain and to use her flexeril bid if needed as well. Pt instructed to f/u with [facility], her primary care team, or in the ED if her symptoms are persisting and not improving after a few days and to seek medical attention right away in the ED with any worsening or new symptoms, which are reviewed with her. [email or web address] available 12/04/2024 14:21:01 Plan of Treatment Reminders Order Date Submit Date Provider Last Modified By Organization Details Last Modified Time Details Appointments None recorded. Lab None recorded. Referral None recorded. Procedures None recorded. Surgeries None recorded. Imaging None recorded. Medication Orders ketorolac 30 mg/mL (1 mL) injection solution 2024 025 [id number], [address] [place] [address], [id number], 13:39:26 Patient TargetsNo targets recorded. Patient InstructionsNo instructions recorded. Reason for Referral None Reported. Medical Equipment None Reported. Allergies No known drug allergies Medications Name Sig Start Date Stop Date Status Note LastModified by Organization Details LastModified Time losartan 50 mg tablet TOME 1 TABLETA POR V A ORAL TODOS LOS D active Not Available Not Available No t Available metformin 500 mg tablet TOME CEE TABLETA POR V A ORAL TODOS LOS D active Not Available Not Available No t Available carvedilol 6.25 mg tablet TOME 1 TABLETA POR V A ORAL DOS VECES AL D A active Not Available Not Available No t Available ipratropium 0.5 mg-albutero l 3 mg (2.5 mg base)/3 mL nebulizatio n soln 3 ML INHALED EVERY 6 HOURS NEEDED FOR WHEEZING active Not Available Not Available No t Available meclizine 50 mg tablet TOME 1 TABLETA POR V A ORAL DOS VECES AL D A active Not Available Not Available No t Available cetirizine 10 mg tablet TOME CEE TABLETA POR V A ORAL TODOS LOS D active Not Available Not Available No t Available benzonatate 200 mg capsule TAKE 1 CAPSULE BY MOUTH TWO TIMES A DAY NEEDED FOR COUGH FOR 30 DAYS active Not Available Not Available No t Available senna 8.6 mg tablet TAKE 2 TABLETS BY MOUTH DAILY FOR 90 DAYS active Not Available Not Available No t Available FreeStyle Lancets 28 gauge USE SEG N LO INDICADO DOS VECES AL D A active Not Available Not Available No t Available phenazopyri dine 200 mg tablet PLEASE SEE ATTACHED FOR DETAILED DIRECTION S active Not Available Not Available No t Available amlodipine 5 mg tablet TOME 1 TABLETA POR V A ORAL TODOS LOS D active Not Available Not Available No t Available ketorolac 30 mg/mL (1 mL) injection solution Inject 15 mg by intramusc ular route. 2024 active Not Available Not Available Not Avai lable pantoprazol e 20 mg tablet,alina yed release TOME 1 TABLETA POR V A ORAL TODOS LOS D active Not Available Not Available No t Available levothyroxi ne 100 mcg tablet TOME 1 TABLETA POR V A ORAL TODOS LOS D active Not Available Not Available No t Available simvastatin 20 mg tablet TOME 1 TABLETA POR V A ORAL TODOS LOS D AL ACOSTARSE active Not Available Not Available No t Available tacrolimus 0.1 % topical ointment APPLY TO WHITE SPOTS ON HANDS TWICE A DAY active Not Available Not Available No t Available aspirin 81 mg chewable tablet TOME 1 TABLETA POR V A ORAL TODOS LOS D active Not Available Not Available No t Available hydrocortis one 2.5 % topical cream APLIQUE AL GRETCHEN AFECTADA TOPICALLY 2 TIMES A DAY NEEDED FOR SKIN IRRITATIO N active Not Available Not Available No t Available montelukast 10 mg tablet TOME CEE TABLETA AL ACOSTARSE active Not Available Not Available No t Available ammonium lactate 12 % topical cream APPLY TO SKIN TWICE A DAY active Not Available Not Available No t Available cefuroxime axetil 500 mg tablet TOME CEE TABLETA POR V A ORAL DOS VECES AL D A START 2 DAYS BEFORE SCHEDULED OFFICE BOTOX PROCEDURE 12/04 completed Not Available Not Available Not Available hydrocortis one 2.5 % topical ointment APPLY TO CHEST, ABDOMEN TWICE A DAY NEEDED FOR FLARES, DECREASE USE SYMPTOMS IMPROVE active Not Available Not Available No t Available sertraline 50 mg tablet TOME 1 TABLETA POR V A ORAL TODOS LOS D active Not Available Not Available No t Available nitrofurant oin monohydrate /macrocryst als 100 mg capsule PLEASE SEE ATTACHED FOR DETAILED DIRECTION S 12/04 completed Not Available Not Available Not Available chlorhexidi ne gluconate 0.12 % mouthwash USE 15ML TO RINSE YOUR MOUTH TWICE DAILY. SPIT, DO NOT SWALLOW. active Not Available Not Available No t Available FreeStyle Lite Meter kit USE SEG N LO INDICADO DOS VECES AL D A active Not Available Not Available No t Available FreeStyle Lite Strips USE SEG N LO INDICADO DOS VECES AL D A active Not Available Not Available No t Available GaviLyte-G 236 gram-22.74 gram-6.74 gram-5.86 gram oral solution PLEASE SEE ATTACHED FOR DETAILED DIRECTION S active Not Available Not Available No t Available Refresh Celluvisc 1 % eye gel in a dropperette PONGA CEE GOTA EN SHIRLEY DERECHO ANNETTE VECES AL D A active Not Available Not Available No t Available memantine 28 mg capsule sprinkle,ex tended release 24hr TOME 1 C PSULA POR V A ORAL TODOS LOS D active Not Available Not Available No t Available magnesium 400 mg (as magnesium oxide) tablet TAKE 1 TABLET BY MOUTH AT BEDTIME FOR 30 DAYS, MAY HOLD FOR LOOSE STOOLS active Not Available Not Available No t Available Trelegy Ellipta 200 mcg-62.5 mcg-25 mcg powder for inhalation TOME CEE INHALACI N POR V A ORAL TODOS LOS D active Not Available Not Available No t Available Vitals Date Recorded Respiratory rate Heart rate Oxygen saturation Oxygen saturation in Arterial blood by Pulse oximetry Body temperature Systolic And Diastolic Provider Name and Address Organization Details Last Updated DateTime 18 /min 65 /min 97 % 97 % 98.3 [degF] 142/80 mm[Hg] Not Available [facility] 13:29:13 Social History None recorded. Functional Status None recorded. Mental Status None recorded. Family History Nothing Reported. Medical History No medical history recorded. Gynecological HistoryNo gynecological history recorded. Obstetrics History GPAL:G 0 P 0 0 0 0 Past Encounters Encounter ID Performer Location Encounter Start Date Encounter Closed Date Diagnosis/Indication Diagnosis SNOMED-CT Code Diagnosis ICD10 Code Diagnosis IMO Codes Diagnosis Note [id number] Giovanni Price MD [facility] [address] [place] [address] 12/04/2024 13:29:01 12/04/2024 14:58:13 Muscle strain 24138941 T14.8XXA 21298 Health Concerns Section Related Observation LastModified by Organization Radha morgan LastModified Time None Recorded Concern Status LastModified by Organization Details LastModified Time None Recorded Advance Directives Directive None Recorded Payers Insurance Date Sequence Insurance Name Policy Number Policy Barbosa Covered Member ID Barbosa Member ID Guarantor Name 12/04/2024 1 [facility] - DOS ON OR AFTER 2022 - DUAL ELIGIBLE - CUSTODIAL OPTIONS AND ONE CARE (MEDICARE REPLACEMENT/ADV ANTAGE - HMO) Joanna Osman [id number] Joanna Osman Notes Date Note Type Note Provider Name and Address Organization Details Recorded Time 12/04/2024 text/html ROS as noted in the HPI This was a supervised home visit with supervisor of instruction Rashi Tony. HPI: began to develop back pain radiating to the front in the rib cage area, especially when breathing in>8 out of 10 pain today>has taken muscle relaxer ................... ................... ................... ................... ................... ................... ................... ........ CRC Nurse Triage Notes (Felisa Dubois): Reason For Request: [facility] [place] reporting yesterday incontinent exercises, then getting ready to go to sabianism, then began to develop back pain radiating to the front in the rib cage area, especially when breathing in>8 out of 10 pain today>has taken muscle relaxerDenies: Falls with head strike and LOC Falls from a standing position, no LOC, patient is amnestic to the event Falls with isolated injury and deformity noted to limb Falls with inability to move post fall Cool extremities after fall or injury Weakness with fall, able to move all extremities Chief Complaints: Back PainPMH: Diabetes Mellitus Type 2, Hypertension, Osteoarthritis, Chronic Obstructive Pulmonary Disease (COPD), Hyperthyroidism, [facility] Reviewed at 12/04/2024:36[facility] Reviewed at 12/04/2024:36Comments: 74 y.o female complains of Back PainPatients [facility]. Patient was doing unusual exercise [...] any kidney issues and denies any blood thinners.I provided information on the mobile health provider response time and advised the patient and/or caregiver to monitor reported signs and symptoms. I discussed the warning signs of when to seek emergency care. ................... ................... ................... ................... ................... ................... ................... ........ Ophthalmic Lens Inspector Note From Rashi Tony: Encountered patient conscious, alert and ambulatory. Patient reports on 12/03/24 she was performing her prescribed p elvic floor exercises for baseline urinary incontinence, when she developed [...] and neck free of trauma and edema. JVD. Breath sounds present, clear and equal bilaterally. Abdomen is shaft, nontender, and non-distended. Extremities are free of trauma and edema. [facility] contacted: states patient can increase her Tylenol consumption up to three times per 24 hour period. 15mg of IM Toradol administered after medication r ights were reconciled with patient. Patient was encouraged to monitor herself for worsening symptoms, chest pain, shortness of breath, fevers or vomiting, and was encouraged to seek further medical attention including 911 if said symptoms were to develop. Patient verbalizes understanding of the plan and states she is comfortable remaining home today. ................... ................... ................... ................... ................... ................... ................... ........ [facility] Consulted: Giovanni Price ................... ................... ................... ................... ................... ................... ................... ........ Disposition: Fulfilled Giovanni Price MD [address] [facility],[address], [place], [address], [employer] 12/04/2024 14:21:16 OBGyn Episode No OBEpisode recorded.
--- OUTSIDE RECORDS SUMMARY | 2024-12-06 14:08 | XMS_ITS | Continuity of Care Document ---
Author Organization [employer] [facility], [facility] Address [address] [place] [id number] Care Team Providers Care Pharmacist In Charge Name Role Phone HIM CCA OTHER Assessment Encounter Date Assessment Date Assessment LastModified by Organization Details LastModified Time 12/04/2024 12/04/2024 I have reviewed and agree with the assessment and plan as documented by the warp doffer. I provided real time medical direction for this encounter and was immediately available to provide additional phone based assistance as needed. History as noted by warp doffer. Pt with history of Diabetes Mellitus Type [...] new symptoms, which are reviewed with her. [email or web address] available 12/04/2024 14:21:01 Plan of Treatment Reminders Order Date Submit Date Provider Last Modified By Organization Details Last Modified Time Details Appointments None recorded. Lab None recorded. Referral None recorded. Procedures None recorded. Surgeries None recorded. Imaging None recorded. Medication Orders ketorolac 30 mg/mL (1 mL) injection solution 2024 025 [id number], [address] [place], [address], 13:39:26 Patient TargetsNo targets recorded. Patient InstructionsNo [...] and Address Organization Details Last Updated DateTime 5 18 /min 65 /min 97 % 97 [...] ICD10 Code Diagnosis IMO Codes Diagnosis Note [id number] Giovanni Price MD [facility] Medical [address] [address] 12/04/2024 13:29:01 12/04/2024 14:58:13 Muscle strain [id number] T14.8XXA 81725 Health Concerns Section Related Observation LastModified by Organization Radha morgan LastModified Time None Recorded Concern Status LastModified by Organization Details LastModified Time None Recorded Payers Encounter Date Sequence Insurance Name Policy Number Policy Barbosa Covered Member ID Barbosa Member ID Guarantor Name 12/04/2024 1 [facility] - DOS ON OR AFTER 2022 - DUAL ELIGIBLE - RESIDENTIAL OPTIONS AND ONE CARE (MEDICARE REPLACEMENT/ADV ANTAGE - HMO) Joanna Osman [id number] Joanna Osman Notes Date Note Type Note Provider Name and Address Organization Details Recorded Time 12/04/2024 text/html ROS as noted in the HPI This was a supervised home visit with warp doffer Rashi Tony. HPI: began to develop back pain radiating to the front in the rib cage area, especially when breathing in>8 out of 10 pain today>has taken muscle relaxer ................... ................... ................... ................... ................... ................... ................... ........ CRC Nurse Triage Notes (Felisa Dubois): Reason For Request: [facility] Louisa reporting yesterday incontinent exercises, then getting ready to go to jainism, then began to develop back pain radiating [...] Osteoarthritis, Chronic Obstructive Pulmonary Disease (COPD), Hyperthyroidism, [facility] Reviewed at 12/04/2024:36Allergies Reviewed at 12/04/2024:36Comments: 74 y.o female complains of Back PainPatients [facility]. Patient was doing unusual exercise [...] ................... ................... ................... ................... ................... ................... ........ Body Press Operator Note From Rashi Tony: Encountered patient conscious, [...] Extremities are free of trauma and edema. [facility] [place]: states patient can increase her Tylenol [...] ................... ................... ................... ................... ................... ................... ........ [facility] Consulted: Giovanni Price ................... ................... ................... ................... ................... ................... ................... ........ Disposition: Fulfilled Giovanni Price MD [address] [facility],[address], [place], [address], [employer] 12/04/2024 14:21:16 OBGyn Episode No OBEpisode recorded.
[2024-12-06 14:23] LABS: Thyroid Stimulating Hormone 6.92 uIU/mL (0.32-4.0)
== END 2024-12-06 10:46 | disposition home or self-care (01) ==
LOC: HO.XRAY 10:45
PROVIDERS: Absent Provider Internal Medicine; PCP Internal Medicine; Visit Provider Hospitalist
DX: G47.33 Obstructive sleep apnea (adult) (pediatric) (principal); J44.89 Other specified chronic obstructive pulmonary disease; K21.9 Gastro-esophageal reflux disease without esophagitis; R05.3 Chronic cough; J31.0 Chronic rhinitis; R42 Dizziness and giddiness; R07.81 Pleurodynia; I10 Essential (primary) hypertension; E03.9 Hypothyroidism, unspecified; K85.90 Acute pancreatitis without necrosis or infection, unspecified; Z79.899 Other long term (current) drug therapy; Z87.891 Personal history of nicotine dependence
CPT/HCPCS: 36415; 71101; 80048; 80061; 80076; 81001; 83690; 84443; 85027; 99212

== ENCOUNTER 2024-12-06 10:45 | Outpatient (AMB) | payer OTHER, SELFPAY ==
--- NOTE | 2024-12-06 10:53 | MHC.OFFVIS ---
Vital Signs 12/06/24 10:54 Height 5 ft 3 in Weight 156 lb 8.451 oz BMI 27.7 BP 148/62 H Blood Pressure Location Lt brachial Position Sitting Pulse 68 Pulse Source Pulse Oximeter Pulse Oximetry (%) 96 Oxygen Delivery Method Room Air Intake Visit Reasons: Sleep apnea Accompanied by: Self / Same As Patient Allergies regadenoson (From Lexiscan) Adverse Reaction (Intermediate, Verified 12/06/24 10:58) Chest Pain HPI Comments Details: The patient is a 74-year-old woman with a known history of asthma in addition to obstructive sleep apnea. Apparently she was diagnosed with sleep apnea about a year ago. She has underlying cardiovascular risk factor with high blood pressure and diabetes. She did use the CPAP is very hard for her to get used to it. She would have episodes which she will wake up short of breath. Therefore after multiple times including decreasing the pressure is she return the CPAP. She continues to have daytime drowsiness and also has an elevated Kipling score of 10/24. She also has a history of asthma. She had been on Advair before in this was switched over to Wixela and has not had any significant improvement in breathing. At this time will try to optimize respiratory therapy. Will likely made her respiratory status worse with such was diagnosed with COVID-19 infection and subsequently COVID-19 pneumonia about a month or 2 ago. She did require multiple courses of antibiotics initially prednisone. She still has shortness of breath with activity. Mild in severity. Also has a nonproductive cough that is improved. 03/07/2022 the patient is here for pulmonary follow-up visit. She is not recovering after having flu-like symptoms and worsening respiratory symptoms. He has been having increasing chest tightness and wheezing. Moderate severity. She was supposed to be on Trelegy but she has been getting the wrong inhaler to the pharmacy. A resend the prescription to the pharmacy. Will make sure that she is on the right medication. In the meantime I will request that she undergo a chest x-ray and also blood work to assess for any potential triggers that may be exacerbating her obstructive airway disease. Because of her breathing she had a hard time tolerating her CPAP. But now that she is feeling better her cough is a little better after having been sick see starting to go back to using it regularly. 06/13/2022 the patient is here for a pulmonary follow-up visit. The patient now is recovering after having COVID. Her major issue right now is her memory. She seems to not be able to remember things as well after COVID. She recently had an MRI and is currently being worked up for that. In the meantime she is still struggling with her CPAP. She does not use it regularly. I did download the data and she has used it only a few times. When she does use it however seems like the CPAP pressures are too low. She does want to go higher this times is is hard for her to tolerate however. Therefore she is going to continue with CPAP of 8 cm and will reassess her usage and also heart response to therapy. I did request she can bring it in to the next visit so we can also adjusted for her. In addition to this, the patient having some a per the sciatic chest discomfort. Primarily her side. Waxing waning. Pleuritic in nature. At this point she does not have it. I did recommend that if it happens again she can always come in for chest x-ray. She has also been noticing some wheezing. Although she has not been taking the Trelegy regularly. She needs to take a Trelegy regularly and also uses Singulair. Her wheezing may just be a transition into the spring. We can also consider on the chin on antihistamine therapy. However, like to try to avoid polypharmacy at this time. If the patient has worsening she is to call the office for further recommendations. 09/23/2022 patient is here for pulmonary follow-up visit. The patient has recovered well after having COVID. She is back to using her respiratory therapy as prescribed. The patient also has been using her CPAP. The CPAP therapy continues to be effective in beneficial. She does use it for more than 4 hours a night. Now however, now she is having some issues with back discomfort send reticular and neuropathic discomfort. This is affecting her sleep as it is hurting her she goes to bed. He is keeping her up and is affecting her sleep quality. We did talk about potentially treating her with gabapentin. The patient states that she had been on this before and she tolerated it well. Therefore will go ahead and start her on 300 mg at nighttime to help with her sleep and also with discomfort that is affecting her sleep. Hopefully with this she will continue using the CPAP more effectively. She continues use her respiratory medicines. She does not required her short-acting beta agonists at this time. 02/03/2023 the patient is here for a pulmonary follow-up visit. Since her last spoke the patient did have her nuclear Lexiscan. When she was getting the injection she did develop significant back pain and chest pain. It was moderate to severe. Her symptoms did subside. Likely just an adverse reaction to the medicine. Respiratory gonsalves she is doing well now. She she does continue with current therapy. The patient has been using her CPAP. The CPAP therapy continues to be affecting beneficial. If she did get a prescription for gabapentin but she stopped using it because it was causing her to have as significant appetite at nighttime and she does not want he gained any weight. Although now she is taking Zoloft and this seems to be helping her sleep as well. A she does complaint of a cough and also postnasal drip. Will go ahead and prescribe her Dymista with the hope of helping her with a upper respiratory complaints. His I also gave her prescription for Tessalon Perles that she can use as needed for her cough. Although it may not be covered. I did provide her with good Rx card that she can use at the local pharmacy. 03/31/2023 the patient is here for a pulmonary follow-up visit. The patient is complaining still of a cough. Still complains of nonproductive cough which is moderate severity. Does bother her. The patient has tried [id number] medications without any relief. We did try saline Dymista to the pharmacy but was not cover. She has currently not using any nasal sprays. In addition to that she has not using the CPAP regularly. Patient will monitor closely for any worsening daytime drowsiness. She will continue to try positional therapy. If she develops worsening daytime drowsiness or increased cardiovascular risk factors then repeating sleep study may be helpful. The Trelegy inhaler has been helping her asthma. She continued to use it daily. She has not required her rescue inhaler or nebulizer. Also to note, her last chest x-ray was back in December 2022 and was without any acute disease. 09/08/2023 the patient is here for a pulmonary follow-up visit. Still complaining of cough. Cough tends to be at times productive at times not productive. Moderate severity. Feels like it is gets worse when she is trying not to cough like at christian. She does taking [id number]-clbaagu medication without any relief she has significant upper airway cough syndrome significant postnasal drip and rhinitis. She did try the nasal sprays but cause bleeding. Therefore she stopped them. The patient has been using the Trelegy inhaler and her respiratory symptoms have been better. Therefore, I believe her cough is mainly from a upper airway cough syndrome in addition to potentially reflux disease. She does have underlying reflux disease will go ahead and request a barium swallow this time. She is already on PPI. We did talk about the reflux diet and also sleeping elevated. In the meantime she does use a CPAP. The CPAP therapy has been affecting beneficial. She is using the P 10 nasal pillows. She does have a very dry mouth. I explained to her that she needs to use a chinstrap. She is going to start using 1. Hopeful that helps with the adverse effects. In addition to that she should provide nasal rinsing prior to the CPAP in order to minimize the postnasal drip in the irritation. 12/01/2023 the patient is here for a pulmonary follow-up visit. The patient has been using her CPAP. CPAP of 8 cm. Although her AHI has been elevated. I did download her machine and her average AHI is 24. Seems like she needs a higher pressure. We have been going up and down her pressures. Will go and switch over to an APAP 8-11. She is going to keep an eye on the AHI. Hopefully she will do better with the slightly higher pressure. Although arms suspect that she will need a little higher pressure. She continues on the respiratory inhalers with good response. She does complaint of dyspepsia. The patient did have a barium swallows pretty abnormal. She does have a GI evaluation soon. I do believe that based on the findings she needs an endoscopy. 06/04/2024 the patient is here for a pulmonary follow-up visit. She is here with similar complaints. Complains of cough productive in nature. Moderate severity. It bothers her. She has not been using the nasal sprays. Likely she does have an upper airway cough syndrome. Her lungs are pretty clear and she has been taking Trelegy with good effect. She also should be using her rescue inhaler if he develops any chest tightness throughout the day. I will make sure to provide her 1 for home. Also, we can send us some Tessalon Perles and also some Mucinex DM to see this will settle down the cough. She understands that some of these medications will be [id number] and will then will not be covered by insurance. As far as barium swallow which was abnormal she did follow-up with GI and she did undergo endoscopy. She did have evidence of a hiatal hernia esophagitis gastritis and duodenitis. The findings were minimal. She is currently being treated with a PPI with good effect. She also needs to monitor closely and maintain a reflux diet. 12/06/2024 the patient is here for pulmonary follow-up visit. Overall the patient is doing fair. Yesterday she was doing some exercises for her bladder and she developed significant right-sided chest discomfort. Severe in nature. She did have [facility] call her and she did have dispatch sent to her home. They gave her Toradol for musculoskeletal issues and she did take some Flexeril with some relief. The patient is feels better at this time although the areas ditch tender. It is tender to the touch. Appears to be musculoskeletal. She did have back surgery though and radicular pain can also be in differential. Doubt that she fractured a rib although the rib is 10 did tender. She is going to undergo rib x-ray series today. And will continue her on anti-inflammatory medications and muscle relaxants. If her symptoms worsen or not better she can always call so we can order additional imaging studies. She has been using her CPAP in the CPAP therapy has been affecting beneficial. She is finding she is resting better and she is waking up more rested and therefore she wants to continue to use it. She needs use it more than 4 hours a night. The therapy has been affecting beneficial. [facility] Medical History (Updated 12/06/24 @ 11:19 by Osmar Ayala MD) Pleuritic chest pain Elevated cholesterol HTN (hypertension) Type 2 diabetes mellitus Cognitive dysfunction GERD (gastroesophageal reflux disease) Osteopenia Hypothyroid Chronic cough History of neuropathy Chronic ankle pain Non-rheumatic aortic stenosis Chronic allergic rhinitis Hypothyroidism Asthma-COPD overlap syndrome ALISA (obstructive sleep apnea) Asthma Surgical History History of esophagogastroduodenoscopy (EGD) History of colonoscopy with polypectomy (04/16/24) Hx of cystoscopy History of colonoscopy (~03/12/20) History of surgery on lower extremity History of back surgery History of thyroid surgery Family History Father Diabetes HTN (hypertension) Heart disease Mother Diabetes HTN (hypertension) Other Asthma Social History Household Members: None Housing: Apartment Alcohol intake: former Patient Tobacco Use Status: Former Tobacco user Tobacco use type: Cigarette Years Smoked: 10 years e-Cigarette/Vaping Use: Never Used Second Hand Smoke Exposure: Yes service: No Current occupational status: disabled Current occupational exposures/hazards: No Cognitive needs: Yes (cane) Hearing needs: No Vision needs: Yes Female Reproductive History Menstrual Age of Menarche: 12 Review of Systems Const Denies chills, Denies fatigue, Denies fever(s), Denies weight gain and Denies weight loss Eyes Denies change in vision ENT Denies dizziness Card Reports chest pain, Denies leg edema, Denies lightheadedness, Denies palpitations, Denies dyspnea on exertion, Denies orthopnea and Denies other Resp Denies cough and Denies dyspnea on exertion GI Denies hematochezia and Denies change in stool character Denies hematuria, Denies dysuria, Denies flank pain and Reports urinary incontinence Musc Denies abnormal gait, Denies muscle weakness, Denies numbness, Denies radiating pain into limb and Denies tingling Skin/Breast Reports as per HPI and Denies rash Neuro Denies abnormal gait, Denies dizziness, Reports memory loss, Denies numbness and Denies tingling Psych Reports memory loss Endo Denies fatigue and Denies palpitations Physical Exam Vital Signs: Last Vital Signs Pulse 68 12/06/24 10:54 BP 148/62 H 12/06/24 10:54 Pulse Ox 96 12/06/24 10:54 Oxygen Delivery Method Room Air 12/06/24 10:54 BMI result Body Mass Index 27.7 Const General: alert Orientation/consciousness: patient oriented x3 Neck Neck: Yes normal visual inspection, Yes full ROM and Yes no lymphadenopathy Chest Chest palpation & inspection: tenderness rib (right side) Resp Effort & Inspection: normal respiratory effort Auscultation: no rales, no rhonchi, no wheezes and diminished lung sounds Cardio Jugular venous distension: no JVD Rate: regular rate Rhythm: regular rhythm and other (ectopy) Heart sounds: S1 normal heart sound present and S2 normal heart sound present Peripheral pulses: Peripheral pulses 2+ throughout GI Inspection: Yes normal to inspection Palpation (GI): Soft to palpation and nontender Auscultation: normal bowel sounds Skin General skin exam: rashes and/or lesions noted Neuro General: patient oriented x3 Extrem Other: Trace edema around right lateral malleolus General: Yes normal to inspection Psych Appearance: grossly normal Mental Status: mental status grossly normal Speech and movement: Normal speech and movement present Assessment & Plan Assessment & Plan (1) Asthma-COPD overlap syndrome: Code(s): J44.9 - Chronic obstructive pulmonary disease, unspecified Category: Medical (2) ALISA (obstructive sleep apnea): Code(s): G47.33 - Obstructive sleep apnea (adult) (pediatric) Category: Medical (3) Chronic allergic rhinitis: Code(s): J30.9 - Allergic rhinitis, unspecified Category: Medical (4) GERD (gastroesophageal reflux disease): Code(s): K21.9 - Gastro-esophageal reflux disease without esophagitis Category: Medical Qualifiers: Esophagitis presence: without esophagitis Qualified Code(s): K21.9 - Gastro-esophageal reflux disease without esophagitis (5) Chronic cough: Code(s): R05.3 - Chronic cough Category: Medical (6) Pleuritic chest pain: Code(s): R07.81 - Pleurodynia Category: Medical Plan Using the APAP continue Trelegy cont singular JEANNINE as needed ipratropium nasal spray as needed reflux diet sleep with HOB elevated Trial Flexeril as needed NSAIDS as needed CXR/rib xray series Tessalon pearls as needed Follow-up in 6-8 months Orders: Orders XR ribs RT min 3V w CXR1V 12/06/24 R07.81 - Pleurodynia Medications: New cyclobenzaprine 5 mg PO TID PRN 20 tabs 0RF muscle spasm 14 days ibuprofen 400 mg PO Q8H PRN 30 tabs 0RF pain 14 days Coding Level of Care Code Est Pt Level 4 (01150) Complex EM visit Add On G2211 Diagnoses Asthma-COPD overlap syndrome J44.9 ALISA (obstructive sleep apnea) G47.33 Chronic allergic rhinitis J30.9 Gastroesophageal reflux disease without esophagitis K21.9 Esophagitis presence: without esophagitis Chronic cough R05.3 Pleuritic chest pain R07.81 Time Spent (min) 17
[2024-12-06 10:54] VITALS: BP 148/62; PULSE 68; O2SAT 96; BMI 27.7
--- OUTSIDE RECORDS SUMMARY | 2024-12-06 13:13 | XMS_ITS | Encounter Summary ---
Author Organization [employer] Address [address] [place] [address] [address] [place] [address] Care Team Providers Care Cartridge Feeder Name Role Phone Unavailable Primary Care Provider Unavailabl e Encounter Details Date Type Department Care Team ([facility] st Contact Info) Description 01/26/2022 Abstract [facility] ADULT D[facility]AL [address] [place] [address] Dental, Provider, DDS Social History Tobacco Use [...]
--- OUTSIDE RECORDS SUMMARY | 2024-12-06 13:13 | XMS_ITS | Encounter Summary ---
Author Organization [facility] Address [address] [place] [address] Encounters * CPT with Medical [facility] at [facility] on 2024-12-04 began to develop back pain radiating to the front in the rib cage area, especially when breathing in>8 out of 10 pain today>has taken muscle relaxer { reasonForRequest : [facility] [place] reporting yesterday incontinent exercises, then getting ready to go to synagogue, then began to develop back pain radiating to the front in the rib cage area, especially when breathing in>8 out of 10 pain today>has taken muscle relaxer , patientReports : , denies :[ Falls with head strike and LOC , Falls from a standing position, no LOC, patient is amnestic to the event , Falls with isolated injury and deformity noted to limb , Falls with inability to move post fall , Cool extremities after fall or injury , Weakness with fall, able to move all extremities ], chiefComplaints : Back Pain , pmh : Diabetes Mellitus Type 2, Hypertension, Osteoarthritis, Chronic Obstructive Pulmonary Disease (COPD), Hyperthyroidism, Stroke , allergies : No Known Drug Allergies , otherAllergies : , painAssessment : , vi sitOutcome : , additionalComments : 74 y.o female complains of Back P ain\nPatients [facility] making referral. Patient was doing unusual exercise yesterday. (pelvic floor exercises). Patient stated she started to develop back pain. that radiates to her right side. feels like she pulled a muscle. denies any dizziness other rubin baseline vertigo. denies any chest pain. States it hurts when she takes deep breaths. Patient took gabapentin and baclofen with little relief. states pain is 8/10. understands we have no xray capability and is still requesting insted visit. denies any kidney issues and denies any blood thinners. \nI provided information on the mobile health provider response time and advised the patient and/or caregiver to monitor reported signs and symptoms. I discussed the warning signs of when to seek emergency care. } Encountered patient conscious, alert and ambulatory. Patient reports on 12/03/24 she was performingher prescribed ???pelvic floor exercises??? for baseline urinary incontinence, when she developed right sided hip and rib pain. Patient reports taking prescribed Flexeril earlier this morning and finding a small amount of relief but expresses taking Tylenol at 7 PM last night(her first and only dose) helped the most. Patient denies any falls or traumas associated with the event. Patient additionally denies chest pain, shortness of breath, abdominal pain, nausea, vomiting or acute changes in vision. Skin warm dry and of appropriate color for ethnicity. Head and neck free of trauma and edema. ??? JVD. Breath sounds present, clear and equal bilaterally. Abdomen is shaft, nontender, and non-distended. Extremities are free of trauma and edema. [facility] contacted: states patient can increase her Tylenol consumption up to three times per 24 hour period. 15mg of IM Toradol administered after medication ???rights?? were reconciled with patient. Patient was encouraged to monitor herself for worsening symptoms, chest pain, shortness of breath, fevers or vomiting, and was encouraged to seek further medical attention including 911 if said symptomswere to develop. Patient verbalizes understanding of the plan and states she is comfortable remaining home today. IV_(FLUIDS_AND/OR_MEDICATION), MEDICATION_IM, ORAL_MEDICATION, EKG Written by Medical [facility] on 2024-12-04
--- OUTSIDE RECORDS SUMMARY | 2024-12-06 13:13 | XMS_ITS | Continuity of Care Document ---
Author Name [facility] Address [address] [place] [id number] Organization Unknown Address [address] [place] [id number] Medications No known medications Problems No known problems
--- OUTSIDE RECORDS SUMMARY | 2024-12-06 13:13 | XMS_ITS | Encounter Summary ---
Author Organization [employer] [facility] Address [address] [place] [address] [address] [address] Care Team Providers Care Kiln Packer Name Role Phone Unavailable Primary Care Provider Unavailabl e Encounter Details Date Type Department Care Team (Latest Contact Info) Description 12/24/2021 Abstract [facility] [...]
--- OUTSIDE RECORDS SUMMARY | 2024-12-06 13:13 | XMS_ITS | Encounter Summary ---
Author Organization [employer] [facility] Address [address] [place] [address] [address] [address] Care Team Providers Care Dairy Processing Supervisor Name Role Phone Unavailable Primary Care Provider Unavailabl e Reason for Visit * Reason Onset Date Comments Durable Medical Equipment 01/18/2023 Encounter Details Date Type Department Care Team ([facility] st Contact Info) Description 01/18/2023 Telephone [facility] MEDICINE [address] [place] [address] Jesus Wiseman MD [address] [place] [address] Durable Medical Equipment Social History Tobacco Use [...] bed pads 2 per day, and she [id number] refills for all the supply's. Any questions please contact Susana at [phone] ext [phone] FYI after further inspection this pt does not seem active. documented in this encounter Plan of Treatment Not on file documented as of this encounter Visit Diagnoses Not on filedocumented in this encounter
--- OUTSIDE RECORDS SUMMARY | 2024-12-06 13:13 | XMS_ITS | Encounter Summary ---
Author Organization [facility] Address [address] [place] [address] [address] [place] [address] Care Team Providers Care Lay Out And Detail Drafter Name Role Phone Unavailable Primary Care Provider Unavailabl e Encounter Details Date Type Department Care Team (Latest Contact Info) Description 12/24/2021 Abstract [facility] CONVERSIONS Dental, Provider, DDS Social History [...]
--- OUTSIDE RECORDS SUMMARY | 2024-12-06 13:13 | XMS_ITS | Encounter Summary ---
Author Organization [employer] [facility] Address [address] [place] [address] [address] [address] Care Team Providers Care Robotic Toy Inventor Name Role Phone Unavailable Primary Care Provider Unavailabl e Encounter Details Date Type Department Care Team (Latest Contact Info) Description 04/05/2018 Abstract [facility] CONVERSIONS Dental, Provider, DDS Social [...]
--- OUTSIDE RECORDS SUMMARY | 2024-12-06 13:13 | XMS_ITS | Clinical Summary ---
Author Organization [employer] Address [address] [place] [address] [address] [address] Care Team Providers Care Stitch Bonding Machine Tender Helper Name Role Phone Unavailable Primary Care Provider [...] 3:00 PM EDT Office Visit [facility] ADULT DENTAL [address] [place] [address] Rox Bui Gingival bleeding (Primary Dx); Dental [...] series) 2023 COVID-19 Vaccine ( - season) 2024 02/03/2023, 03/03/2022, 02/24/2021, Additional history exists Influenza [...] from Last 3 Months Insurance DENTAL - [facility] RET[facility] (HMO D-SNP) DENTAL [facility]
--- OUTSIDE RECORDS SUMMARY | 2024-12-06 13:13 | XMS_ITS | Encounter Summary ---
Author Organization [facility] Address [address] [place] [address] [address] [place] [address] Care Team Providers Care Pattern Finisher Name Role Phone Unavailable Primary Care Provider Unavailabl e Encounter Details Date Type Department Care Team (Latest Contact Info) Description 10/03/2018 Abstract [facility] CONVERSIONS Dental, Provider, DDS Social [...]
== END 2024-12-06 11:20 | disposition home or self-care (01) ==
LOC: HO.HPS 10:46
PROVIDERS: PCP Internal Medicine; Visit Provider Hospitalist
DX: J44.9 Chronic obstructive pulmonary disease, unspecified (principal); G47.33 Obstructive sleep apnea (adult) (pediatric); J30.9 Allergic rhinitis, unspecified; K21.9 Gastro-esophageal reflux disease without esophagitis; R05.3 Chronic cough; R07.81 Pleurodynia
CPT/HCPCS: 99214; G2211

== ENCOUNTER → 2024-12-06 11:59 | Outpatient (BNV) | payer OTHER, SELFPAY | PROVIDERS: Absent Provider Internal Medicine; PCP Internal Medicine; Visit Provider Radiology Diagnostic Radiology | DX: R07.81 Pleurodynia (principal) | CPT/HCPCS: 71101 ==